=== PATIENT | female | born 1945 | race Caucasian/White ===

== ENCOUNTER 2021-11-02 13:04 | Outpatient (CLI) | payer MEDICARE, BC, SELFPAY ==
--- NOTE | 2021-11-02 13:45 | CRLHL7_ITS ---
For Patients: As a result of the Century Cures Act, medical imaging exams and procedure reports are released immediately into your electronic medical record. You may view this report before your referring provider. If you have questions, please contact your health care provider. INDICATION: Right leg pain. Radiculopathy. TECHNIQUE: Multiplanar multisequence noncontrast MR images acquired through the lumbar spine. COMPARISON: Lumbar spine radiograph 10/26/2021. FINDINGS: Exaggerated lumbar lordosis. Uqku-gq-wajmunat rightward lumbar curvature. Vertebral heights maintained. No acute fracture. No concerning bone marrow signal abnormalities. Normal conus terminates at T12-L1. T12-L1: Moderate disc degeneration. No spinal canal or neural foraminal narrowing. L1-2: Moderate disc degeneration. No spinal canal or neural foraminal narrowing. L2-3: Moderate disc degeneration and left eccentric disc height loss. Posterior disc bulging and endplate spondylitic ridging. Mild bilateral facet arthropathy. Minimal spinal canal narrowing. Mild left lateral recess narrowing. Minimal left without right neural foraminal narrowing. L3-4: Moderate disc degeneration. Mild disc height loss. Shallow left eccentric disc bulge. Ralh-dq-kjrcewdb facet arthropathy. Mild spinal canal narrowing. Xrmp-lc-ggvbogod left and mild right neural foraminal narrowing. L4-5: Mild grade 1 anterolisthesis measuring 4 mm. Moderate disc degeneration. Annular fissure. Right facet joint ankylosis. Vrdu-wg-yfgzafvp left facet arthropathy. No spinal canal narrowing. Mild bilateral neural foraminal narrowing. L5-S1: Mild grade 1 anterolisthesis measuring 3 mm. Advanced disc degeneration. Disc height loss. Right eccentric disc bulging and endplate spondylitic ridging. Moderate right and mild left facet arthropathy. No spinal canal narrowing. Moderate right and mild left neural foraminal narrowing. Sacroiliac joint degenerative changes. IMPRESSION: 1. Multilevel lumbar spondylosis without spinal canal stenosis. 2. At L5-S1, moderate right neural foraminal narrowing with exiting right L5 nerve root encroachment/impingement. Dictated by Raymundo Medel MD @ 11/03/2021 10:58:40 AM (Electronically Signed)
== END 2021-11-02 13:05 | disposition home or self-care (01) ==
LOC: MRI 13:07
PROVIDERS: PCP Family Medicine; Visit Provider Family Medicine
DX: M51.16 Intervertebral disc disorders with radiculopathy, lumbar region (principal); M47.816 Spondylosis without myelopathy or radiculopathy, lumbar region; M51.36 Other intervertebral disc degeneration, lumbar region
CPT/HCPCS: 72148

== ENCOUNTER 2021-12-05 07:58 | Outpatient (CLI) | payer MEDICARE, BC, SELFPAY | END 2021-12-05 07:59 | disposition home or self-care (01) | LOC: INJ CL 07:59 | PROVIDERS: PCP Family Medicine; Visit Provider Family Medicine | DX: M54.16 Radiculopathy, lumbar region (principal); M51.36 Other intervertebral disc degeneration, lumbar region | CPT/HCPCS: 64483; Q9966 ==

== ENCOUNTER 2021-12-07 08:40 | Inpatient (IN) | payer MEDICARE, BC, SELFPAY ==
[2021-12-07] VITALS (14 sets, daily range): BP systolic 94–133; BP diastolic 39–80; PULSE 60–78; RESP 16–22; TEMP 35.8–37.4; O2SAT 86–98; BMI 35.0; BMI 35.2
--- NOTE | 2021-12-07 09:04 | ED_ITS ---
HPI - General Adult General Time Seen by Provider: 09:04 Date Seen: 12/07/21 Chief complaint: Shortness of Breath/Dyspnea Stated complaint: Shortness of breath Time Seen by Provider: 12/07/21 09:03 Source: patient, EMS and RN notes reviewed Mode of arrival: ambulatory Limitations: no limitations History of Present Illness HPI narrative: Patient is a 76-year-old female brought in by EMS from home for hypoxia/shortness of breath. She has a pulse oximeter at home and has been monitoring it. She does have obstructive sleep apnea but has not been using her CPAP due to the nose piece being old and not working. She has not tried to correct this yet. She woke up this morning was feeling short of breath and her pulse oximetry was 85%. EMS got her reportedly to be in the 70s. She states she has had a little cough but that it is maybe not worse or new. She has noted a weight gain of 5 lb from 180-185 over unknown time frame. She attributes this to eating too much and not being active. She has maybe had a little substernal chest discomfort. She has had no fevers. She takes 2 baby aspirin a day but is otherwise not on any blood thinners. She did recently have a back injection for steroids, no acute complaints with that. She has never been on home oxygen, is a nonsmoker. Denies any edema. EMS applied 2 L nasal cannula and her O2 sats came up into the upper 90s. When I come in to see her she has 2 L nasal cannula on and is in the upper 90s. I did turn her oxygen off at roughly 905 in we are going to see how she does off oxygen. I have discussed with her that this certainly can be hypoxia from sleep apnea. We will look at other etiologies and rule out any acute coronary/pulmonary issues potentially causing this. Related Data Home Medications Medication Instructions Recorded Confirmed carboxymethylcellulose sodium 1 % 1 drp ophthalmic (eye) 10/25/21 11/09/21 eye liquid gel drops cholecalciferol (vitamin D3) 25 25 mcg PO QDAY 10/25/21 11/09/21 mcg (1,000 unit) tablet escitalopram oxalate 5 mg tablet 5 mg PO DAILY 10/25/21 11/09/21 metoprolol succinate 50 mg mg PO DAILY 10/25/21 11/09/21 tablet,extended release 24 hr omega-3 fatty acids 500 mg capsule 500 mg PO QDAY 10/25/21 11/09/21 potassium chloride 8 mEq 10 meq PO 10/25/21 11/09/21 capsule,extended release simvastatin 40 mg tablet 40 mg PO .Bedtime 10/25/21 11/09/21 sodium chloride 5 % eye drops 5 drp ophthalmic (eye) 10/25/21 11/09/21 aspirin 81 mg chewable tablet 1 tab PO BID 10/26/21 11/09/21 escitalopram oxalate 10 mg tablet 10 mg PO QDAY 10/26/21 11/09/21 famotidine 20 mg tablet 20 mg PO BID 10/26/21 11/09/21 furosemide 20 mg tablet 20 mg PO DAILY 10/26/21 11/09/21 Allergies Allergy/AdvReac Type Severity Reaction Status Date / Time amoxicillin Allergy Unknown Verified 11/09/21 14:55 sulfa drugs AdvReac Severe SOB Uncoded 11/09/21 14:55 Review of Systems Status of ROS: Reports: 10 or more systems reviewed and unremarkable except as noted in History and below [facility] Medical History Hernia Surgical History History of carpal tunnel release of both wrists History of cholecystectomy (~2018) History of total right knee replacement (~2014) Family History Mother Osteoarthritis Stomach cancer Brother Diabetes Father Diabetes Social History Smoking Status: Never smoker Do you use any of these nicotine containing products: None Second hand tobacco smoke exposure: No How often do you have a drink containing alcohol: monthly or less AUDIT-C Alcohol total score: 1 Non-prescribed substance use: denies use service: No Exam Const: Vital Signs, click to edit/add: Vital Signs - 24 hr 12/07/21 08:59 12/07/21 09:21 12/07/21 09:22 Temperature 98.6 F Pulse Rate [Left P ulse Oximeter] 60 Respiratory Rate 16 Blood Pressure [Le ft Upper Arm] 131/65 Pulse Oximetry 98 86 L Oxygen Delivery Me thod Nasal Cannula Room Air Room Air Oxygen Flow Rate 2 Course Course Hospital Course: She will be monitored on pulse oximetry, cardiac monitoring. We will put her back on oxygen if she becomes hypoxic. Will look at cardiopulmonary etiology including but not limited to acute ischemic issues, arrhythmias, infectious pulmonary etiology including COVID, thromboembolic possibilities. Her workup will consist of portable chest x-ray to begin with, advanced imaging if needed, appropriate blood work and as stated continuous pulse oximetry and cardiac monitoring. Reevaluation(s) Reevaluation #1: Patient's chest x-ray is showing some possible fluid overload, troponin is just minimally elevated. Awaiting other labs. Patient has not taken her morning Lasix. Nursing staff noted that her oxygenation went down to 84% in they did have to put her on 1 L nasal cannula oxygen. Her D-dimer is only 0.69 in the following age rule do not feel that there is likely a pulmonary embolus causing this. We are waiting other labs. I am going to order 40 mg IV Lasix for her now. Working hypothesis is that this is some congestive heart failure/fluid overload. Time: 10:35 Reevaluation #2: Proximally to our point of care troponin is stable at 0.09. Note the initial troponin was a lab value. I have subsequently spoken with the hospitalist who accepts patient. Time: 11:53 Vital Signs Vital signs: Initial Vital Signs Temperature 98.6 F 12/07/21 08:59 Temperature Source Temporal Artery Scan 12/07/21 08:59 Pulse Rate 60 12/07/21 08:59 Pulse Rhythm 12/07/21 08:59 Pulse Strength 3+ Normal 12/07/21 08:59 Respiratory Rate 16 12/07/21 08:59 Blood Pressure 131/65 12/07/21 08:59 Blood Pressure Mean 87 12/07/21 08:59 Blood Pressure Position Sitting 12/07/21 08:59 Pulse Oximetry 98 12/07/21 08:59 Oxygen Delivery Method 12/07/21 08:59 Oxygen Flow Rate 2 12/07/21 08:59 Vital Signs Temperature 98.6 F 12/07/21 08:59 Pulse Rate 60 12/07/21 08:59 Respiratory Rate 16 12/07/21 08:59 Blood Pressure 131/65 12/07/21 08:59 Pulse Oximetry 98 12/07/21 08:59 Oxygen Delivery Method 12/07/21 08:59 Oxygen Flow Rate 2 12/07/21 08:59 Temperature 98.6 F 12/07/21 08:59 Pulse Rate 60 12/07/21 08:59 Respiratory Rate 16 12/07/21 08:59 Blood Pressure 131/65 12/07/21 08:59 Pulse Oximetry 86 L 12/07/21 09:22 Oxygen Delivery Method 12/07/21 09:22 Oxygen Flow Rate 2 12/07/21 08:59 Medical Decision Making Lab Data Lab results reviewed: Yes I reviewed the patient's lab results Labs: Lab Results 12/07/21 12/07/21 12/07/21 Range/Units 09:21 09:21 09:21 WBC 9.88 (4.50-11.00) K/uL RBC 3.91 L (4.00-5.20) m/uL Hgb 12.1 (12.0-16.0) gm/dL Hct 36.3 (33.0-51.0) % MCV 93 (80-100) fL MCH 31 (26-34) pg MCHC 33 (32-36) gm/dL RDW Coeff of Dusty 12.1 (11.5-15.5) % Plt Count 225 (140-440) K/uL Neut % (Auto) 84.7 H (42.0-72.0) % Lymph % (Auto) 6.2 L (20-44) % Collier % (Auto) 7.7 (0.0-11.0) % Eos % (Auto) 0.9 (0.0-7.0) % Baso % (Auto) 0.3 (0.0-3.0) % Neut # (Auto) 8.40 H (1.7-7.0) K/uL Lymph # (Auto) 0.60 L (0.90-2.90) K/uL Collier # (Auto) 0.80 (0.00-0.90) K/UL Eos # (Auto) 0.09 (0.00-0.50) K/uL Baso # (Auto) 0.03 (0.00-0.30) K/uL Abs Immat Gran (auto) 0.02 (0.00-0.30) K/uL D-Dimer Quant (PE/DVT) 0.69 H (0.00-0.50) ug/ml Sodium 136 (135-149) mmol/L Potassium 4.1 (3.6-5.1) mmol/L Chloride 102 (96-114) mmol/L Carbon Dioxide 30 (20-32) mmol/L BUN 39 H (7-30) mg/dL Creatinine 0.8 (0.5-1.5) mg/dL Estimated Creat Clear 36.12 Estimated GFR 76 ml/min Glucose 114 (60-115) mg/dL Calcium 9.0 (8.4-10.6) mg/dL Total Bilirubin 1.3 (0.1-1.5) mg/dL AST 39 H (12-35) U/L ALT 39 H (4-35) U/L Alkaline Phosphatase 69 (40-150) U/L Troponin I 0.07 H* (0.01-0.04) ng/mL C-Reactive Protein 1.7 H (0.5-1.0) mg/dL NT-Pro-B Natriuret Pep 2270 H (0-450) PG/mL Total Protein 7.2 (6.0-8.3) g/dL Albumin 4.0 (3.3-5.0) g/dL SARS-CoV-2 (PCR) (Negative) POC Troponin I (0.01-0.04) ng/ml 12/07/21 12/07/21 Range/Units 09:35 11:30 WBC (4.50-11.00) K/uL RBC (4.00-5.20) m/uL Hgb (12.0-16.0) gm/dL Hct (33.0-51.0) % MCV (80-100) fL MCH (26-34) pg MCHC (32-36) gm/dL RDW Coeff of Dusty (11.5-15.5) % Plt Count (140-440) K/uL Neut % (Auto) (42.0-72.0) % Lymph % (Auto) (20-44) % Collier % (Auto) (0.0-11.0) % Eos % (Auto) (0.0-7.0) % Baso % (Auto) (0.0-3.0) % Neut # (Auto) (1.7-7.0) K/uL Lymph # (Auto) (0.90-2.90) K/uL Collier # (Auto) (0.00-0.90) K/UL Eos # (Auto) (0.00-0.50) K/uL Baso # (Auto) (0.00-0.30) K/uL Abs Immat Gran (auto) (0.00-0.30) K/uL D-Dimer Quant (PE/DVT) (0.00-0.50) ug/ml Sodium (135-149) mmol/L Potassium (3.6-5.1) mmol/L Chloride (96-114) mmol/L Carbon Dioxide (20-32) mmol/L BUN (7-30) mg/dL Creatinine (0.5-1.5) mg/dL Estimated Creat Clear Estimated GFR ml/min Glucose (60-115) mg/dL Calcium (8.4-10.6) mg/dL Total Bilirubin (0.1-1.5) mg/dL AST (12-35) U/L ALT (4-35) U/L Alkaline Phosphatase (40-150) U/L Troponin I (0.01-0.04) ng/mL C-Reactive Protein (0.5-1.0) mg/dL NT-Pro-B Natriuret Pep (0-450) PG/mL Total Protein (6.0-8.3) g/dL Albumin (3.3-5.0) g/dL SARS-CoV-2 (PCR) Negative SARS-CoV-2 (Negative) POC Troponin I 0.09 H (0.01-0.04) ng/ml Imaging Data Chest x-ray: Attestation: I have reviewed the pertinent imaging results. Radiologist's impression: Patient: MIKE CHEEMA Facility:?[facility] Patient ID:?[id number] Site Patient ID:?[id number]. Site :?[id number] Study:?XRay Chest PORTABLE 1 VIEW-12/07/2021 9:32:48 AM Ordering Physician:Joseph Estrada Final Report: INDICATION: Hypoxia. TECHNIQUE: Chest 1 views. COMPARISON: None. FINDINGS: Lungs: Mild diffuse interstitial prominence. No focal consolidations. Pleura: No pleural effusion or pneumothorax. Heart and Mediastinum: The cardiomediastinal silhouette is normal. The vessels are unremarkable. Bones: Unremarkable. IMPRESSION: Interstitial prominence could be venous congestion or vascular crowding. Dictated by Darrel Maldonado MD @ 12/07/2021 9:36:16 AM ECG Data Attestation: I personally reviewed and interpreted this ECG as follows: (Sinus rhythm, 95 beats per minute, supraventricular complexes , QT corrected 505 milliseconds) Prior ECG tracings: not available for review Critical Care Time Critical Care Time Critical Care Time: No Discharge Plan Discharge Clinical Impression: Congestive heart failure, Hypoxia Patient Disposition: Admitted As Inpatient Condition: Stable Prescriptions: No Action escitalopram oxalate 5 mg tablet 5 mg PO DAILY carboxymethylcellulose sodium 1 % drops, liquid gel 1 drp ophthalmic (eye) simvastatin 40 mg tablet 40 mg PO .Bedtime metoprolol succinate 50 mg tablet extended release 24 hr PO DAILY potassium chloride 8 mEq capsule, extended release 10 meq PO sodium chloride 5 % drops 5 drp ophthalmic (eye) omega-3 fatty acids 500 mg capsule 500 mg PO QDAY cholecalciferol (vitamin D3) 25 mcg (1,000 unit) tablet 25 mcg PO QDAY aspirin 81 mg tablet,chewable 1 tab PO BID famotidine 20 mg tablet 20 mg PO BID furosemide 20 mg tablet 20 mg PO DAILY escitalopram oxalate 10 mg tablet 10 mg PO QDAY Follow Up/Referrals: Eloise Malave MD [Primary Care Provider] -
--- NOTE | 2021-12-07 09:12 | CRLHL7_ITS ---
For Patients: As a result of the Cures Act, medical imaging exams and procedure reports are released immediately into your electronic medical record. You may view this report before your referring provider. If you have questions, please contact your health care provider. INDICATION: Hypoxia. TECHNIQUE: Chest 1 views. COMPARISON: None. FINDINGS: Lungs: Mild diffuse interstitial prominence. No focal consolidations. Pleura: No pleural effusion or pneumothorax. Heart and Mediastinum: The cardiomediastinal silhouette is normal. The vessels are unremarkable. Bones: Unremarkable. IMPRESSION: Interstitial prominence could be venous congestion or vascular crowding. Dictated by Darrel Maldonado MD @ 12/07/2021 9:36:16 AM (Electronically Signed)
[2021-12-07 09:50] LABS: Basophils Absolute Auto 0.03 K/uL (0.00-0.30); Basophils Percent Auto 0.3 % (0.0-3.0); Eosinophils Absolute Auto 0.09 K/uL (0.00-0.50); Eosinophils Percent Auto 0.9 % (0.0-7.0); Hematocrit 36.3 % (33.0-51.0); Hemoglobin* 12.1 gm/dL (12.0-16.0); Immature Granulocytes Abs Auto 0.02 K/uL (0.00-0.30); Lymphocytes Percent Auto 6.2 % (20-44); Mean Corpuscular HGB Conc 33 gm/dL (32-36); Mean Corpuscular Hemoglobin 31 pg (26-34); Mean Corpuscular Volume 93 fL (80-100); Monocytes Percent Auto 7.7 % (0.0-11.0); Neutrophils Percent Auto 84.7 % (42.0-72.0); Platelet Count* 225 K/uL (140-440); RDW Coefficient of Variation % 12.1 % (11.5-15.5); Red Blood Count 3.91 m/uL (4.00-5.20); White Blood Count* 9.88 K/uL (4.50-11.00)
[2021-12-07 09:54] LABS: Slide Review Reflex No
[2021-12-07 10:10] LABS: Chloride* 102 mmol/L (96-114); Sodium* 136 mmol/L (135-149)
[2021-12-07 10:11] LABS: Potassium* 4.1 mmol/L (3.6-5.1)
[2021-12-07 10:13] LABS: Bilirubin Total* 1.3 mg/dL (0.1-1.5); Creatinine* 0.8 mg/dL (0.5-1.5); Est. Creatinine Clearance* 36.12; Estimated Glomerular Filt Rate 76 ml/min
[2021-12-07 10:14] LABS: Alanine Aminotransferase* 39 U/L (4-35); Alkaline Phosphatase* 69 U/L (40-150); Aspartate Amino Transferase* 39 U/L (12-35); Blood Urea Nitrogen* 39 mg/dL (7-30); Carbon Dioxide* 30 mmol/L (20-32); Glucose* 114 mg/dL (60-115); Total Protein* 7.2 g/dL (6.0-8.3)
[2021-12-07 10:15] LABS: D Dimer Quantitative* 0.69 ug/ml (0.00-0.50)
[2021-12-07 10:16] LABS: C Reactive Protein* 1.7 mg/dL (0.5-1.0)
[2021-12-07 10:23] LABS: NT Pro B Type NatriureticPept* 2270 PG/mL (0-450)
[2021-12-07 10:29] LABS: Troponin I* 0.07 ng/mL (0.01-0.04)
[2021-12-07 10:29] LABS: SARS PCR* Negative SARS-CoV-2 (Negative)
--- NOTE | 2021-12-07 10:29 | ED.NURSE ---
dr jennings aware of cr trop 0.07.
[2021-12-07] MEDS: FUROSEMIDE 10 MG/ML inj 40 MG IVP (10:44)
[2021-12-07 11:57] LABS: Troponin, Point-of-Care* 0.09 ng/ml (0.01-0.04)
[2021-12-07] MEDS: ACETAMINOPHEN 325 MG TABLET 650 MG PO ×2 (12:16→20:45)
--- NOTE | 2021-12-07 12:16 | W.PC.EDHO ---
Primary Language: Preferred Language: Orientation Status: [x] Alert & Oriented [] Slight Confusion [] Known Dx Dementia Transfers By: [x] Assist of 1 WITH WALKER [] Assist of 2 [] Lift Active Medications Discontinued Medications Generic Name Dose Route Start Last Admin Trade Name Yeyoq PRN Reason Stop Dose Admin Furosemide 40 mg 12/07/21 10:35 12/07/21 10:44 Furosemide 10 Mg/Ml Inj IVP 12/07/21 10:36 40 mg ONCE ONE Administration Description of Symptoms ED Triage Present Problem BIBA after calling for SOB. Pt states her CPAP Description machine hasnt been working for sometime. Woke up feeling SOB with o2 in the 70s. EMS gave 2L, brought up to 98%. On 2L here. Denies pain. Was recently seen for steroid shot. ED Triage Date of Onset of 12/07/21 Symptoms IV Insertion/Site Date of IV Line Insertion [ 12/07/21 Right Antecubital] Oxygen Administration Pulse Oximetry 86 Pulse Oximetry 98 Oxygen Delivery Method Room Air Oxygen Delivery Method Room Air Oxygen Delivery Method Nasal Cannula Oxygen Flow Rate 2 Cardiac Monitoring EKG Method 12 Lead EKG Method 12 Lead Cardiac Ectopy PACs
--- NOTE | 2021-12-07 12:55 | P.IMHP_ITS ---
Hospitalist- H&P: HPI History of Present Illness Date Seen: 12/07/21 Chief complaint: Shortness of breath Narrative: Racquel Jones is a 76 year old female who presented to the ED for acute on chronic dyspnea. She's noted shortness of breath for the past few weeks, worse when she lays fl at. She is unsure if she's having PND. Occasionally has chest pressure with the shortness of breath. No significant LE edema. She is on Lasix 20 mg daily. She has been on this dose for a few months, but in the past was on 40 mg daily, which she feels was more effective. Racquel thinks she misses this medication perhaps 1-2 times per week. Overnight, she noted worsening symptoms, then called her PCP's clinic this morning. They recommended she come to the hospital by ambulance. ER Course and Findings: - EMS noted hypoxia upon arrival to pick patient up (70-80%), improved with supplemental oxygen - CXR in ED exhibited interstitial prominence that could be venous congestion/vascular crowding - Received 1 dose of Lasix with + results - D-dimer within age-appropriate limits - EKG with long QT, no other acute findings Past Medical History: CHF: Last TTE in records done 03/08: Normal LV chamber size and function with EF of 66%, trace to mild AR. Essential HTN with age-appropriate control on home medications. Mild depression/anxiety, controlled on 15mg of Lexapro. RAFAEL, not using CPAP for weeks to months secondary to poorly fitting mask. Has had multiple hernia repairs (6-7), last one was in 2019 at [facility]. Her postoperative course was complicated by paroxysmal atrial fibrillation. She's followed with Cardiology since, with no recurrence of this rhythm. , 3 adult children. Lives with her son Luis Miguel bernal, brother Aman, and sister Nel would together be medical decision makers if needed. Requests DNR/DNI status. Nonsmoker. Rare ETOH use. Thrice COVID vaccinated. Retired, multiple previous jobs (most recently worked for [employer]). Review of Systems Status of ROS: Reports: 10 or more systems reviewed and unremarkable except as noted in History and below Narrative: No recent falls, but she's been feeling unsteady while walking over the past few weeks secondary to her back pain (known degenerative disease). On Saturday of this week, she took 1 Valium prior to her PAT with Dr. You for her back pain. Intermittent headaches, no obvious alleviating or aggravating factors. No GI concerns, no skin changes or rashes. [facility] Medical History (Updated 12/07/21 @ 13:46 by Crystal Raymundo MD) Essential hypertension Hernia Surgical History History of carpal tunnel release of both wrists History of cholecystectomy (~2018) History of total right knee replacement (~2014) Family History Mother Osteoarthritis Stomach cancer Brother Diabetes Father Diabetes Social History Highest level of school completed/degree received: high school graduate Smoking Status: Never smoker Do you use any of these nicotine containing products: None Second hand tobacco smoke exposure: No How often do you have a drink containing alcohol: monthly or less AUDIT-C Alcohol total score: 1 Non-prescribed substance use: denies use Caffeine: Yes (cup of coffee or pop a day) service: No Meds Home Medications and Allergies Home Medications Medication Instructions Recorded Confirmed Type carboxymethylcellulose sodium 1 % 1 drp ophthalmic (eye) DAILY 10/25/21 12/07/21 History eye liquid gel drops cholecalciferol (vitamin D3) 25 25 mcg PO QDAY 10/25/21 12/07/21 History mcg (1,000 unit) tablet escitalopram oxalate 5 mg tablet 5 mg PO DAILY 10/25/21 12/07/21 History metoprolol succinate 50 mg 50 mg PO DAILY 10/25/21 12/07/21 History tablet,extended release 24 hr omega-3 fatty acids 500 mg capsule 500 mg PO QDAY 10/25/21 12/07/21 History potassium chloride 8 mEq 10 meq PO DAILY 10/25/21 12/07/21 History capsule,extended release simvastatin 40 mg tablet 40 mg PO .Bedtime 10/25/21 12/07/21 History sodium chloride 5 % eye drops 5 drp ophthalmic (eye) DAILY 10/25/21 12/07/21 History aspirin 81 mg chewable tablet 1 tab PO BID 10/26/21 12/07/21 History escitalopram oxalate 10 mg tablet 10 mg PO QDAY 10/26/21 12/07/21 History famotidine 20 mg tablet 20 mg PO BID 10/26/21 12/07/21 History furosemide 20 mg tablet 20 mg PO DAILY 10/26/21 12/07/21 History Allergies Allergy/AdvReac Type Severity Reaction Status Date / Time Sulfa (Sulfonamide Allergy Severe dyspnea Verified 12/07/21 13:36 Antibiotics) amoxicillin Allergy Unknown Verified 11/09/21 14:55 Exam Narrative: Exam Narrative: GEN: Alert and answering questions appropriately, 3-5 word dyspnea HEENT: Normal external ears, EOMIs bilaterally, no scleral icterus CV: RRR, No concerning murmurs, rubs, or gallops R: Air movement adequate, fine rales bilateral bases noted Ab: soft, nondistended, no ttp Ext: wwp, no concerning edema of lower extremities Skin: No concerning skin lesions or rashes on exposed skin Neuro: Nonfocal Psych: Appropriate Const: Vital Signs, click to edit/add: Vital Signs - 24 hr 12/07/21 08:59 12/07/21 09:21 12/07/21 09:22 Temperature 98.6 F Pulse Rate [Left P ulse Oximeter] 60 Respiratory Rate 16 Blood Pressure [Le ft Upper Arm] 131/65 Pulse Oximetry 98 86 L Oxygen Delivery Me thod Nasal Cannula Room Air Room Air Oxygen Flow Rate 2 12/07/21 08:45 12/07/21 09:00 12/07/21 10:00 Temperature 98.6 F 98.6 F 98.6 F Pulse Rate [Left P ulse Oximeter] 60 73 70 Respiratory Rate 16 16 16 Blood Pressure [Le ft Upper Arm] 131/65 124/63 130/65 Pulse Oximetry 86 L 96 97 Oxygen Delivery Me thod Room Air Room Air Room Air Oxygen Flow Rate 2 2 2 12/07/21 12:00 Temperature 98.6 F Pulse Rate [Left P ulse Oximeter] 60 Respiratory Rate 16 Blood Pressure [Le ft Upper Arm] 120/68 Pulse Oximetry 96 Oxygen Delivery Me thod Room Air Oxygen Flow Rate 2 Hospitalist - H&P: Result Labs Labs: Short CBC 12/07/21 Range/Units 09:21 WBC 9.88 (4.50-11.00) K/uL Hgb 12.1 (12.0-16.0) gm/dL Hct 36.3 (33.0-51.0) % Plt Count 225 (140-440) K/uL BMP 12/07/21 09:21 Sodium 136 Potassium 4.1 Chloride 102 Carbon Dioxide 30 BUN 39 H Creatinine 0.8 Glucose 114 Calcium 9.0 Cardiac Enzymes 12/07/21 Range/Units 09:21 Troponin I 0.07 H* (0.01-0.04) ng/mL Liver Function 12/07/21 Range/Units 09:21 Total Bilirubin 1.3 (0.1-1.5) mg/dL AST 39 H (12-35) U/L ALT 39 H (4-35) U/L Alkaline Phosphatase 69 (40-150) U/L Albumin 4.0 (3.3-5.0) g/dL Assessment and Plan Assessment and plan (1) Essential hypertension: Status: Acute (2) Acute respiratory failure with hypoxia: Status: Acute (3) Long QT interval: Status: Acute (4) Congestive heart failure: Status: Acute (5) Elevated troponin: Status: Acute Plan 76 yo female, admitted for acute hypoxic respiratory failure. 1. Acute hypoxic respiratory failure: No evidence of pneumonia or other infectious process on initial chest x-ray. D-dimer within age-appropriate limits. Clinically appears to have a CHF exacerbation. Diuresing well and improving with supplemental oxygen. Will obtain TTE today to assess EF. Admit on telemetry to monitor cardiac rhythm. Patient has a remote history of atrial fibrillation and does not believe she has been in atrial fibrillation recently. Continue metoprolol for rate control and hypertension. Of note, patient was on Eliquis for a short time in 2019, but currently anticoagulated on aspirin BID. 2. Elevated troponin; presumably secondary to cardiac strain from CHF exacerbation, continue to follow troponins. 3. Comorbidities as noted above: Continue CPAP (RT referral ordered) and home medications. 4. Lovenox for prophylaxis, in addition to aspirin. Continue famotidine and p.o. intake. 5. Patient requests DNR/DNI status.
--- NOTE | 2021-12-07 14:10 | PC.NURSE ---
normal sinus with a bbb
--- NOTE | 2021-12-07 14:12 | PC.NURSE ---
End of Shift Note: Patient was an admit that arrived from the ER today. Patient was seen today for increase shortness of breath. Patient is alert and oriented and in no distress. Shortly after arriving to the floor we were able to wean her to room air. Admission completed and all questions have been answered will continued to monitor.
--- NOTE | 2021-12-07 14:21 | RESP.RT ---
Patient states that she is not wearing her CPAP machine. Discussed the wear that not wearing her CPAP machine results in and that just wearing it when she is short of breath does not prevent her from becoming short of breath. She needs to wear it each night for maintenance. Patient was wearing 1L NC and SATing 96%. Patient put on room air and SATing 92%.
[2021-12-07 18:32] LABS: Troponin I* 0.12 ng/mL (0.01-0.04)
[2021-12-07] MEDS: ENOXAPARIN 40 MG/0.4 ML INJ SUBCUT (20:45)
[2021-12-07] MEDS: ASPIRIN 81 MG TAB.CHEW PO (20:45)
[2021-12-07] MEDS: SIMVASTATIN 40 MG TABLET PO (20:45)
[2021-12-07] MEDS: FAMOTIDINE 20 MG TABLET PO (20:45)
--- NOTE | 2021-12-07 23:51 | PC.NURSE ---
End of Shift: Patient pleasant and cooperative. Afebrile. Denies pain. Up to bathroom and chair with 1 assist, walker and gait belt. O2 sats greater than 90% on room air while awake. Sats decrease to mid 80s while sleeping, 1L NC applied and sats remained above 90%.
[2021-12-08] VITALS (10 sets, daily range): BP systolic 88–133; BP diastolic 52–67; PULSE 55–72; RESP 18–22; TEMP 36.3–37; O2SAT 61–94
--- NOTE | 2021-12-08 05:38 | PC.NURSE ---
Shift note : Pt alert, able to make needs known, SBA w/ walker to BR, denies any pain. Pt continues to get extremely SOB w/ activity, RA sats w/ activity 88%, continues w/ 1L while sleeping d/t sats dipping at rest w/ RAFAEL, lungs w/ crackles R base. Tele reads NSR.
[2021-12-08 07:17] LABS: Troponin I* 0.06 ng/mL (0.01-0.04)
[2021-12-08] MEDS: CARBOXYMETHYLCELLULOSE (REFRESH PLUS) TEARS 1 DROP EYE-BOTH (08:05)
[2021-12-08] MEDS: ESCITALOPRAM 10 MG TABLET 15 MG PO (08:06)
[2021-12-08] MEDS: ASPIRIN 81 MG TAB.CHEW PO ×2 (08:06→20:38)
[2021-12-08] MEDS: METOPROLOL SUCCINATE (XL) 50 MG TAB PO (08:06)
[2021-12-08] MEDS: FAMOTIDINE 20 MG TABLET PO ×2 (08:06→20:39)
[2021-12-08] MEDS: POTASSIUM CHLORIDE 10 MEQ CAPSULE ER PO (08:06)
[2021-12-08] MEDS: FUROSEMIDE 20 MG TABLET PO (08:07)
--- NOTE | 2021-12-08 08:14 | CRLHL7_ITS ---
For Patients: As a result of the Century Cures Act, medical imaging exams and procedure reports are released immediately into your electronic medical record. You may view this report before your referring provider. If you have questions, please contact your health care provider. INDICATION: Abnormal echo COMPARISON: None TECHNIQUE: : CT examination of the chest was performed with the uneventful intravenous administration of 95 cc of Isovue 370 while thin axial sections were obtained from above the apices of the lungs to the lung bases. Please note that all CT scans at this facility use dose modulation, iterative reconstruction, and/or weight-based dosing when appropriate to reduce radiation dose to as low as reasonably achievable. FINDINGS: : HEART and MEDIASTINUM: The heart size is mildly enlarged. This is multi chamber enlargement but notably also involves the right heart. The central pulmonary arteries are enlarged which can indicate pulmonary hypertension. The RV/LV ratio is 1.2. Greater than 0.9 is indicative right heart strain. However, this appearance could also be due to pre-existing pulmonary hypertension unrelated to acute pulmonary embolus. PULMONARY ARTERIAL CIRCULATION: There is a tiny clot burden pulmonary embolus. This is near the left hilus and best seen on series 4, axial image 87 corresponding to coronal images series 6, image 151. LUNGS: The lungs show no focal consolidation or mass. The airways appear normal. Patchy basilar atelectasis PLEURAL SPACES: There is no pleural effusion, pneumothorax or pleural based mass. VISUALIZED UPPER ABDOMEN: The limited visualized upper abdominal structures appear normal. OSSEOUS STRUCTURES: Degenerative changes and scoliosis. TUBES and LINES: None. I discussed this case with Dr. Raymundo at 9:20 a.m. on December 08, 2021 IMPRESSION: 1. There is a very small pulmonary embolus. 2. Multichamber cardiac enlargement including right heart enlargement. The RV/LV ratio is 1.2 which generally indicates right heart strain. However, the dilated right ventricle could be unrelated to the small pulmonary embolus. There are enlarged central pulmonary arteries which can indicate pulmonary hypertension. 3. Trace bibasilar atelectasis. No pleural effusion or pneumothorax Please note that all CT scans at this facility use dose modulation, iterative reconstruction, and/or weight-based dosing when appropriate to reduce radiation dose to as low as reasonably achievable. Dictated by Jw Garcia MD @ 12/08/2021 9:22:07 AM (Electronically Signed)
--- NOTE | 2021-12-08 09:15 | PM.IMPN1 ---
Progress Note: A&P Assessment and plan (1) Acute respiratory failure with hypoxia: Problem details: TTE results from 12/07: - normal LV size with moderately increased wall thickness and hyperdynamic systolic function with an EF of 79% - sclerotic mitral valve with trace MR - normal cavity size of right ventricle with reduction in global systolic function and akinesis of mid free wall concerning for PE Status: Acute Assessment and Plan: Hypoxia is likely combination of PE and presumed pulmonary HTN. Continue supplemental oxygen and will need close outpatient Cardiology f/u (Sees Dr. Akers of Cardiology at [facility] [place]). TTE findings per above. Continue home dosing of Lasix. Patient continues to have mild intermittent hypoxia - will ask RT to consult to discuss home oxygen. (2) Essential hypertension: Status: Acute Assessment and Plan: BP at goal, continue home medications. (3) Pulmonary embolism: Status: Acute Assessment and Plan: Patient amenable to initiating Xarelto with close PCP and cardiology follow-up. (4) Elevated troponin: Problem details: Peak at 0.12 Status: Acute (5) Atrial fibrillation: Problem details: 2019, postoperatively. No recurrence since, on BID ASA Status: Acute Assessment and Plan: Patient has remained in sinus rhythm throughout stay. Continue metoprolol. We will stop her aspirin for prophylaxis now that she is restarting Xarelto. Plan Xarelto for prophylaxis per above. Anticipate discharge home tomorrow, possibly with home oxygen (pending RT assessment). Time Spent With Patient Total time spent: 45 in coordination of care, counseling, and discharge planning. Subjective Date Seen: 12/08/21 Interval history: No acute events overnight. Patient continues to have dyspnea with activity, intermittent hypoxia to 87-88%. [employer] called me this morning after reading echocardiogram. Findings include: - normal LV size with moderately increased wall thickness and hyperdynamic systolic function with an EF of 79% - sclerotic mitral valve with trace MR - normal cavity size of right ventricle with reduction in global systolic function and akinesis of mid free wall concerning for PE CTA exhibited small PE near L hilum. Racquel has no concerns for me today. Patient would prefer to go home without supplemental oxygen, but is amenable to RT referral for assessment. Exam Narrative: Exam Narrative: GEN: Alert, sitting comfortably in bed, continues to have 3-5 word dyspnea HEENT: Normal external ears, EOMIs bilaterally, no scleral icterus CV: RRR, No concerning murmurs, rubs, or gallops R: Decreased bilateral bases with mild rhonchi bilateral bases, air movement adequate Ext: wwp, no concerning edema Skin: No concerning skin lesions or rashes on exposed skin Neuro: Nonfocal Psych: Appropriate Const: Vital Signs, click to edit/add: Vital Signs - 24 hr 12/07/21 09:21 12/07/21 09:22 12/07/21 10:00 Temperature 98.6 F Pulse Rate Pulse Rate [Left P ulse Oximeter] 70 Pulse Rate [Right Radial] Respiratory Rate 16 Blood Pressure [Le ft Upper Arm] 130/65 Blood Pressure [Ri ght Arm] Pulse Oximetry 86 L 97 Oxygen Delivery Me thod Room Air Room Air Room Air Oxygen Flow Rate 2 12/07/21 12:00 12/07/21 12:57 12/07/21 13:31 Temperature 98.6 F 99.3 F Pulse Rate Pulse Rate [Left P ulse Oximeter] 60 Pulse Rate [Right Radial] 62 Respiratory Rate 16 22 Blood Pressure [Le ft Upper Arm] 120/68 Blood Pressure [Ri ght Arm] 133/48 L Pulse Oximetry 96 95 95 Oxygen Delivery Me thod Room Air Nasal Cannula Nasal Cannula Oxygen Flow Rate 2 2 2 12/07/21 13:31 12/07/21 15:00 12/07/21 15:00 Temperature 98.2 F Pulse Rate 66 Pulse Rate [Left P ulse Oximeter] Pulse Rate [Right Radial] 64 Respiratory Rate 18 Blood Pressure [Le ft Upper Arm] Blood Pressure [Ri ght Arm] 94/39 L Pulse Oximetry 94 94 Oxygen Delivery Me thod Room Air Room Air Oxygen Flow Rate 12/07/21 16:15 12/07/21 17:18 12/07/21 15:30 Temperature Pulse Rate 60 Pulse Rate [Left P ulse Oximeter] Pulse Rate [Right Radial] Respiratory Rate 18 Blood Pressure [Le ft Upper Arm] Blood Pressure [Ri ght Arm] 114/80 Pulse Oximetry Oxygen Delivery Me thod Oxygen Flow Rate 12/07/21 19:00 12/07/21 23:30 12/07/21 23:30 Temperature 98.9 F 96.5 F L Pulse Rate Pulse Rate [Left P ulse Oximeter] Pulse Rate [Right Radial] 72 62 Respiratory Rate 22 20 20 Blood Pressure [Le ft Upper Arm] Blood Pressure [Ri ght Arm] 110/52 L 113/58 L Pulse Oximetry 94 97 97 Oxygen Delivery Me thod Room Air Room Air Nasal Can nula Nasal Cannula Oxygen Flow Rate 1 1 12/07/21 23:30 12/07/21 23:30 12/08/21 05:00 Temperature 97.3 F L Pulse Rate 78 Pulse Rate [Left P ulse Oximeter] Pulse Rate [Right Radial] 61 Respiratory Rate 20 22 Blood Pressure [Le ft Upper Arm] Blood Pressure [Ri ght Arm] 132/67 Pulse Oximetry 97 94 Oxygen Delivery Me thod Nasal Cannula Nasal Cannula Oxygen Flow Rate 1 1 Labs Labs: Laboratory Results - last 24 hr 12/07/21 12/07/21 12/07/21 09:21 09:21 09:21 WBC 9.88 RBC 3.91 L Hgb 12.1 Hct 36.3 MCV 93 MCH 31 MCHC 33 RDW Coeff of Dusty 12.1 Plt Count 225 Neut % (Auto) 84.7 H Lymph % (Auto) 6.2 L Patrick % (Auto) 7.7 Eos % (Auto) 0.9 Baso % (Auto) 0.3 Neut # (Auto) 8.40 H Lymph # (Auto) 0.60 L Patrick # (Auto) 0.80 Eos # (Auto) 0.09 Baso # (Auto) 0.03 Abs Immat Gran (auto) 0.02 D-Dimer Quant (PE/DVT) 0.69 H Sodium 136 Potassium 4.1 Chloride 102 Carbon Dioxide 30 BUN 39 H Creatinine 0.8 Estimated Creat Clear 36.12 Estimated GFR 76 Glucose 114 Calcium 9.0 Total Bilirubin 1.3 AST 39 H ALT 39 H Alkaline Phosphatase 69 Troponin I 0.07 H* C-Reactive Protein 1.7 H NT-Pro-B Natriuret Pep 2270 H Total Protein 7.2 Albumin 4.0 SARS-CoV-2 (PCR) POC Troponin I 12/07/21 12/07/21 12/07/21 09:35 11:30 17:48 WBC RBC Hgb Hct MCV MCH MCHC RDW Coeff of Dusty Plt Count Neut % (Auto) Lymph % (Auto) Patrick % (Auto) Eos % (Auto) Baso % (Auto) Neut # (Auto) Lymph # (Auto) Patrick # (Auto) Eos # (Auto) Baso # (Auto) Abs Immat Gran (auto) D-Dimer Quant (PE/DVT) Sodium Potassium Chloride Carbon Dioxide BUN Creatinine Estimated Creat Clear Estimated GFR Glucose Calcium Total Bilirubin AST ALT Alkaline Phosphatase Troponin I 0.12 H* C-Reactive Protein NT-Pro-B Natriuret Pep Total Protein Albumin SARS-CoV-2 (PCR) Negative SARS-CoV-2 POC Troponin I 0.09 H 12/08/21 05:25 WBC RBC Hgb Hct MCV MCH MCHC RDW Coeff of Dusty Plt Count Neut % (Auto) Lymph % (Auto) Patrick % (Auto) Eos % (Auto) Baso % (Auto) Neut # (Auto) Lymph # (Auto) Patrick # (Auto) Eos # (Auto) Baso # (Auto) Abs Immat Gran (auto) D-Dimer Quant (PE/DVT) Sodium Potassium Chloride Carbon Dioxide BUN Creatinine Estimated Creat Clear Estimated GFR Glucose Calcium Total Bilirubin AST ALT Alkaline Phosphatase Troponin I 0.06 H* C-Reactive Protein NT-Pro-B Natriuret Pep Total Protein Albumin SARS-CoV-2 (PCR) POC Troponin I
--- NOTE | 2021-12-08 10:51 | NUTR.NU ---
PJN with MD nutrition consult for CHF. RDN visited with patient whom agreed to diet education related to CHF. Patient reports living with her son whom makes a lot of the meals. Patient tries to inlcude fruits and vegetables, and whole grains in her diet, however she does add salt and oils to foods. Nutrition education provided on a low sodium diet related to congestive heart failure. Verbal and written information provided. Recommend limiting sodium to 2,000 mg per day. Discussed foods recommended and to avoid. Handouts provided from [facility] on heart failure nutrition therapy, sodium content of foods, heart healthy label reading tips, sodium-free flavoring tips and heart healthy cooking and shopping tips. Patient verbalized understanding. RDN's contact information was provided and patient was encouraged to call with questions.
[2021-12-08] MEDS: RIVAROXABAN 10 MG TABLET 15 MG PO ×2 (11:14→20:38)
--- NOTE | 2021-12-08 13:44 | RESP.3PART ---
3 Part Home O2 Testing Summary RT 3 Part Home O2 Testing Summary Start: 12/08/21 13:40 Freq: Status: Active Protocol: Document 12/08/21 13:40 ZULMA (Rec: 12/08/21 13:43 ZULMA [id number]) 3 Part Home O2 Testing Summary The following is a summary of the 3 Part O2 Testing Evaluation Date/Time of Testing Date 12/08/21 Time 13:40 Insurance Policy Number [id number] Step 1 SAT on room air at rest (%) 92 Step 2 SAT on room air while exercising (%) 85 Step 3 SAT on supplemental O2 while exercising 90 (%) Liters of supplemental O2 needed while 3 exercising (L) O2 Delivery O2 delivered via Nasal Cannula Comments Comments Patient SAT on room air at rest is 92% and does not require supplemental O2 at this time. Patient SAT on room air with activity is 85% and requires 3L NC to keep SAT at 90% with activity.
--- NOTE | 2021-12-08 14:08 | PC.NURSE ---
Pt. ambulating with walker and SBA. Experiences SOB with exertion. O2 sats 87-94% RA. Telemetry Sinus Bradycardia/NSR. Denies pain.
--- NOTE | 2021-12-08 14:48 | PC.SOCIAL ---
Met with pt. who will need oxygen at discharge. Per RT physician is not discharging until tomorrow. Met with pt. and answered questions about payment for O2 and mobility at home with the tank she will receive at discharge. Waiting for physician's orders to fax over to [employer] [facility] but pt. has the portable O2 tank in her room for discharge tomorrow.
[2021-12-08] MEDS: ACETAMINOPHEN 325 MG TABLET 650 MG PO (15:45)
--- NOTE | 2021-12-08 17:18 | W.PM.HOT ---
Acute Home Oxygen Therapy Acute Home Oxygen Therapy Provider Note Provider Note: Patient was admitted on 12/07/21 at 12:17 and will be discharging on 12/09/21] Patient is desaturating with SATs of [85%] on room air due to [Pulmonary Hypertension]. Alternative therapies have been attempted and have not been successful in maintaining the patient's saturation level above 88%. Supplemental O2 is required. This patient is mobile within the home and requires portability.
[2021-12-08] MEDS: SIMVASTATIN 40 MG TABLET PO (20:39)
--- NOTE | 2021-12-08 22:23 | PC.NURSE ---
Shift [id number]- Patient denies pain throughout shift. She is SOB with ambulation. BP is decreased after just returning from bathroom, but increased at recheck 20 minutes later- see charting. She states that maybe she sort-of gets lightheaded when getting up, but not dizzy. She does not have SOB at rest. Appetite is intact.
[2021-12-09 02:00] VITALS: PULSE 57
[2021-12-09 03:00] VITALS: BP 138/67; PULSE 59; RESP 18; O2SAT 97
--- NOTE | 2021-12-09 06:13 | PC.NURSE ---
shift [id number] Pt this shift cooperative with cares. Up to restroom with walker and SB assist. SpO2 dipped into the 86-88% on room air NOC. 1L O2 via NC applied and sats at 97%. Tolerating continuos pulse-ox with sticky probe vs clamp probe. Slept comfortably throughout night.
[2021-12-09 07:20] LABS: Basophils Percent Auto 0.9 % (0.0-3.0); Eosinophils Percent Auto 4.9 % (0.0-7.0); Hematocrit 34.1 % (33.0-51.0); Hemoglobin* 11.2 gm/dL (12.0-16.0); Immature Granulocytes Abs Auto 0.02 K/uL (0.00-0.30); Lymphocytes Percent Auto 13.1 % (20-44); Mean Corpuscular HGB Conc 33 gm/dL (32-36); Mean Corpuscular Hemoglobin 31 pg (26-34); Mean Corpuscular Volume 93 fL (80-100); Monocytes Percent Auto 7.9 % (0.0-11.0); Neutrophils Percent Auto 72.7 % (42.0-72.0); Platelet Count* 196 K/uL (140-440); RDW Coefficient of Variation % 11.8 % (11.5-15.5); Red Blood Count 3.65 m/uL (4.00-5.20); White Blood Count* 4.28 K/uL (4.50-11.00)
[2021-12-09 07:26] LABS: Slide Review Reflex No
[2021-12-09 07:32] VITALS: PULSE 59
[2021-12-09 07:39] LABS: Chloride* 101 mmol/L (96-114)
[2021-12-09 07:40] LABS: Potassium* 3.8 mmol/L (3.6-5.1); Sodium* 136 mmol/L (135-149)
[2021-12-09 07:42] LABS: Creatinine* 0.6 mg/dL (0.5-1.5); Est. Creatinine Clearance* 36.12; Estimated Glomerular Filt Rate 93 ml/min
[2021-12-09 07:43] LABS: Blood Urea Nitrogen* 19 mg/dL (7-30); Calcium* 8.4 mg/dL (8.4-10.6); Carbon Dioxide* 31 mmol/L (20-32); Glucose* 98 mg/dL (60-115)
[2021-12-09 07:49] VITALS: BP 140/61; PULSE 64; RESP 16; TEMP 36.6; O2SAT 94; O2SAT 98
[2021-12-09] MEDS: ESCITALOPRAM 10 MG TABLET 15 MG PO (08:29)
[2021-12-09] MEDS: RIVAROXABAN 10 MG TABLET 15 MG PO (08:29)
[2021-12-09] MEDS: POTASSIUM CHLORIDE 10 MEQ CAPSULE ER PO (08:29)
[2021-12-09] MEDS: FUROSEMIDE 20 MG TABLET PO (08:29)
[2021-12-09] MEDS: METOPROLOL SUCCINATE (XL) 50 MG TAB PO (08:29)
[2021-12-09] MEDS: FAMOTIDINE 20 MG TABLET PO (08:30)
--- NOTE | 2021-12-09 10:28 | PM.DS1 ---
DS: Providers Provider Time Seen by Provider: 08:58 Date Seen: 12/09/21 Date of admission: 12/07/21 12:17 Primary care physician: Eloise Malave MD Admitting Clinician: Crystal Raymundo MD Consults: 12/07/21 13:31 Consult to Nutrition [CONS] Routine Comment: Reason for consult:: Nutritional Consult Comment: CHF Consult to Respiratory Therapy [CONS] Routine Comment: Reason(s) for RT Consult:: Consult Attending Physician on discharge: Crystal Raymundo MD Date of Discharge: 12/09/21 DS: Diagnosis Discharge Diagnosis (1) Acute respiratory failure with hypoxia: Status: Acute Problem details: TTE results from 12/07: - normal LV size with moderately increased wall thickness and hyperdynamic systolic function with an EF of 79% - sclerotic mitral valve with trace MR - normal cavity size of right ventricle with reduction in global systolic function and akinesis of mid free wall concerning for PE (2) Hypoxia: Status: Acute (3) Pulmonary embolism: Status: Acute (4) Elevated troponin: Status: Acute Problem details: Peak at 0.12 (5) Long QT interval: Status: Chronic Problem details: Patient is on escitalopram. This could be reduced or discontinued which may improve the prolonged QT. Patient will be following up with Cardiology. (6) Congestive heart failure: Status: Chronic (7) Essential hypertension: Status: Chronic (8) RAFAEL on CPAP: Status: Chronic (9) Pulmonary hypertension: Status: Chronic DS: Summary Hospital Course Hospital Course: This is a 76-year-old female presented through the emergency department for acute on chronic dyspnea. She had been having more shortness of breath over the last few weeks, especially when she was laying flat. She also had occasional chest pressure associated with the shortness of breath. She had no significant worsening lower extremity edema. EMS noted hypoxia with oxygen saturations 70-80% upon arrival to pick her up. This improved with supplemental oxygen. D-dimer was within age-appropriate limits and EKG showed long QT. She continued to need supplemental oxygen. Echocardiogram revealed reduction in global systolic function of the right ventricle and akinesis of mid free wall concerning for PE. CT chest was then obtained and revealed a pulmonary embolism for which she was started on Xarelto. She is requiring oxygen with activity. We did a home oxygen assessment and I have ordered homegoing oxygen for her. She is doing well today and is in stable condition for discharge home. I again verified the patient's dose of escitalopram, she confirmed is 15 mg daily. Due to prolonged QTC, this could be reduced which may be helpful. She will be following up with Cardiology, who can also help monitor her QTC. Time Spent with Patient Time attestation: Total time spent providing and/or coordinating discharge services: Exam Const: Vital Signs, click to edit/add: Vital Signs - 24 hr 12/08/21 11:11 12/08/21 15:15 12/08/21 15:15 Temperature 98.6 F 98.1 F Pulse Rate Pulse Rate [Right Radial] 59 L 72 Respiratory Rate 18 18 20 Blood Pressure [Ri ght Arm] 122/52 L 88/55 L Pulse Oximetry 94 61 L 91 Oxygen Delivery Me thod Room Air Room Air Room Air Oxygen Flow Rate 12/08/21 15:40 12/08/21 18:14 12/08/21 19:05 Temperature 98.5 F Pulse Rate 69 Pulse Rate [Right Radial] 67 Respiratory Rate 18 Blood Pressure [Ri ght Arm] 133/52 L 122/60 Pulse Oximetry 94 Oxygen Delivery Me thod Room Air Oxygen Flow Rate 12/08/21 23:00 12/08/21 23:00 12/09/21 02:00 Temperature 98.0 F Pulse Rate 57 L Pulse Rate [Right Radial] 60 Respiratory Rate 18 18 Blood Pressure [Ri ght Arm] 128/64 Pulse Oximetry 92 94 Oxygen Delivery Me thod Room Air Room Air Oxygen Flow Rate 12/09/21 03:00 12/09/21 07:32 12/09/21 07:49 Temperature Pulse Rate 59 L Pulse Rate [Right Radial] 59 L Respiratory Rate 18 Blood Pressure [Ri ght Arm] 138/67 Pulse Oximetry 97 94 Oxygen Delivery Me thod Nasal Cannula Room Air Oxygen Flow Rate 1 12/09/21 07:49 Temperature 98 F Pulse Rate Pulse Rate [Right Radial] 64 Respiratory Rate 16 Blood Pressure [Ri ght Arm] 140/61 H Pulse Oximetry 98 Oxygen Delivery Me thod Room Air Oxygen Flow Rate DS: Data Data Completed and Pending Completed studies during hospitalization: Ordering Physician: Natalie Anderson M.D. Date of Service: 12/07/21 Procedure(s): XR chest 1V portable Accession Number(s): [id number] cc: Eloise Malave M.D.; Natalie Anderson M.D.~ For Patients: As a result of the Cures Act, medical imaging exams and procedure reports are released immediately into your electronic medical record. You may view this report before your referring provider. If you have questions, please contact your health care provider. INDICATION: Hypoxia. TECHNIQUE: Chest 1 views. COMPARISON: None. FINDINGS: Lungs: Mild diffuse interstitial prominence. No focal consolidations. Pleura: No pleural effusion or pneumothorax. Heart and Mediastinum: The cardiomediastinal silhouette is normal. The vessels are unremarkable. Bones: Unremarkable. IMPRESSION: Interstitial prominence could be venous congestion or vascular crowding. Dictated by Darrel Maldonado MD @ 12/07/2021 9:36:16 AM (Electronically Signed) 12/07/2021 EKG: Sinus rhythm with premature supraventricular complexes. Heart rate 95 beats per minute. Cannot rule out anterior infarct, age undetermined. Prolonged QT, QTC 505 milliseconds. Echocardiogram: Normal left ventricular size, moderately increased wall thickness, hyperdynamic global systolic function, calculated EF 79%. Mitral valve is sclerotic, trace mitral regurgitation. Right ventricular cavity size is normal, global systolic RV function is moderately reduced with akinesis of the mid free wall concerning for pulmonary embolism (Hatch's sign). EKG: Sinus rhythm with occasional premature ventricular complexes and premature atrial complexes, heart rate 66 beats per minute. Low-voltage QRS. Prolonged QT, QTC 480 milliseconds. Ordering Physician: Crystal Raymundo M.D. Date of Service: 12/08/21 Procedure(s): CT angio chest PE protocol Accession Number(s): [id number] cc: Crystal Raymundo M.D.; Eloise Malave M.D.~ For Patients: As a result of the Cures Act, medical imaging exams and procedure reports are released immediately into your electronic medical record. You may view this report before your referring provider. If you have questions, please contact your health care provider. INDICATION: Abnormal echo COMPARISON: None TECHNIQUE: : CT examination of the chest was performed with the uneventful intravenous administration of 95 cc of Isovue 370 while thin axial sections were obtained from above the apices of the lungs to the lung bases. Please note that all CT scans at this facility use dose modulation, iterative reconstruction, and/or weight-based dosing when appropriate to reduce radiation dose to as low as reasonably achievable. FINDINGS: : HEART and MEDIASTINUM: The heart size is mildly enlarged. This is multi chamber enlargement but notably also involves the right heart. The central pulmonary arteries are enlarged which can indicate pulmonary hypertension. The RV/LV ratio is 1.2. Greater than 0.9 is indicative right heart strain. However, this appearance could also be due to pre-existing pulmonary hypertension unrelated to acute pulmonary embolus. PULMONARY ARTERIAL CIRCULATION: There is a tiny clot burden pulmonary embolus. This is near the left hilus and best seen on series 4, axial image 87 corresponding to coronal images series 6, image 151. LUNGS: The lungs show no focal consolidation or mass. The airways appear normal. Patchy basilar atelectasis PLEURAL SPACES: There is no pleural effusion, pneumothorax or pleural based mass. VISUALIZED UPPER ABDOMEN: The limited visualized upper abdominal structures appear normal. OSSEOUS STRUCTURES: Degenerative changes and scoliosis. TUBES and LINES: None. I discussed this case with Dr. Raymundo at 9:20 a.m. on December 08, 2021 IMPRESSION: 1. There is a very small pulmonary embolus. 2. Multichamber cardiac enlargement including right heart enlargement. The RV/LV ratio is 1.2 which generally indicates right heart strain. However, the dilated right ventricle could be unrelated to the small pulmonary embolus. There are enlarged central pulmonary arteries which can indicate pulmonary hypertension. 3. Trace bibasilar atelectasis. No pleural effusion or pneumothorax Please note that all CT scans at this facility use dose modulation, iterative reconstruction, and/or weight-based dosing when appropriate to reduce radiation dose to as low as reasonably achievable. Dictated by Jw Garcia MD @ 12/08/2021 9:22:07 AM (Electronically Signed) Labs on day of discharge: Labs from last 24 hours 12/09/21 12/09/21 05:58 05:58 WBC 4.28 L RBC 3.65 L Hgb 11.2 L Hct 34.1 MCV 93 MCH 31 MCHC 33 RDW Coeff of Dusty 11.8 Plt Count 196 Neut % (Auto) 72.7 H Lymph % (Auto) 13.1 L [place] % (Auto) 7.9 Eos % (Auto) 4.9 Baso % (Auto) 0.9 Neut # (Auto) 3.10 Lymph # (Auto) 0.60 L [place] # (Auto) 0.30 Eos # (Auto) 0.20 Baso # (Auto) 0.00 Abs Immat Gran (auto) 0.02 Sodium 136 Potassium 3.8 Chloride 101 Carbon Dioxide 31 BUN 19 Creatinine 0.6 Estimated Creat Clear 36.12 Estimated GFR 93 Glucose 98 Calcium 8.4 Discharge Plan Discharge Disposition: Home, Self-Care Date of Admission: 12/07/21 12:17 Attending Provider on Discharge: Carito Sebastian Primary Care Provider: Eloise Malave Condition: Stable Anticipated Discharge Date/Time: 12/09/21 11:00 Discharge Medications: New Xarelto 10 mg Tablet 15 mg PO BID 21 Days Qty: 63 0RF Rx Instructions: 15mg BID x21 days, then will need a new Rx from PCP for 20mg once/day (DME) Home Oxygen Misc See Rx Instructions .Route Qty: 1 0RF Rx Instructions: 3 Liters with activity (DME) Home Oxygen Misc See Rx Instructions .Route Qty: 1 0RF Rx Instructions: 3 Liters with Activity Continued escitalopram oxalate 5 mg tablet 5 mg PO DAILY carboxymethylcellulose sodium 1 % drops, liquid gel 1 drp ophthalmic (eye) DAILY simvastatin 40 mg tablet 40 mg PO HS metoprolol succinate 50 mg tablet extended release 24 hr 50 mg PO DAILY sodium chloride 5 % drops 5 drp ophthalmic (eye) DAILY omega-3 fatty acids 500 mg capsule 500 mg PO QDAY cholecalciferol (vitamin D3) 25 mcg (1,000 unit) tablet 25 mcg PO BID famotidine 20 mg tablet 20 mg PO BID furosemide 20 mg tablet 20 mg PO DAILY escitalopram oxalate 10 mg tablet 10 mg PO DAILY aspirin 81 mg tablet,delayed release (DR/EC) 81 mg PO BID Label Comments: Take 1 tablet by mouth 2 times daily with meals. acetaminophen 500 mg tablet 1,000 mg PO Q6H PRN Label Comments: Take 1,000 mg by mouth every 6 hours if needed. Max acetaminophen dose: 4000mg in 24 hrs. potassium chloride 10 mEq capsule, extended release 10 meq PO DAILY polyethylene glycol 3350 17 gram/dose powder 17 g PO BID Label Comments: Take 17 g by mouth 2 times daily. Discharge Orders: Discharge Order (Routine); Ordered 12/09/21 Ordered By: Carito Sebastian Patient Education: Rivaroxaban (By mouth), Pulmonary Embolism (DC) Activity Restrictions/Additional Instructions: You will take 15mg of Xarelto twice/day for 3 weeks, then Dr. Malave will send in the new prescription for 20mg once/day. Stop your aspirin since you'll be on the Xarelto. See both Dr. Malave and Delphine in the next few weeks for followup. Activity Level: Activity as Tolerated Discharge Diet: Regular Follow Up Appointments: Shira Akers MD [Other] (Clinic asked for an urgent referral to get patient in sooner. Referral faxed on 12/08. Clinic staff will contact patient to schedule appointment.) Eloise Malave MD [Primary Care Provider] - (Patient will receive a call from clinic for appointment. ) Forms: [employer] Info Instructions
[2021-12-09 11:11] VITALS: BP 134/57; PULSE 69; RESP 18; TEMP 37; O2SAT 94
--- NOTE | 2021-12-09 12:00 | PC.NURSE ---
Spoke with [facility] pharmacy regarding Xarelto prescription- stopped 10mg tablet prescription and they have received 15mg tablet prescription and will use that as it is cheaper for patient.
--- NOTE | 2021-12-09 12:37 | PC.NURSE ---
Discharge: Patient pleasant and cooperative. Up with SBA and walker. RA at time of discharge, given teachings on how to use home o2. Vitals stable and WNL. Discharge instructions on o2 with activity, medication changes, and follow ups given to patient and . Discharged from unit @ 1230 via wheelchair.
== END 2021-12-09 12:30 | disposition home or self-care (01) | DRG 189 ==
LOC: ED 12:04 → MEDSURG 16:15
PROVIDERS: Internal Medicine; Admitting Provider Family Medicine; Emergency Provider Family Medicine; PCP Family Medicine; Visit Provider Family Medicine
DX: J96.01 Acute respiratory failure with hypoxia (principal); I26.99 Other pulmonary embolism without acute cor pulmonale; I50.22 Chronic systolic (congestive) heart failure; I27.20 Pulmonary hypertension, unspecified; I11.0 Hypertensive heart disease with heart failure; I48.91 Unspecified atrial fibrillation; F41.8 Other specified anxiety disorders; G47.33 Obstructive sleep apnea (adult) (pediatric); I45.81 Long QT syndrome
CPT/HCPCS: 36415; 64483; 71045; 71260; 80048; 80053; 83880; 84484; 85025; 85379; 86140; 87635; 93005; 93306; 94761; 99284; A9270; J1650; J1940; Q9966; Q9967

== ENCOUNTER 2022-02-20 19:50 | Emergency (ER) | payer MEDICARE, BC, SELFPAY ==
[2022-02-20 19:58] VITALS: BP 127/68; PULSE 61; RESP 16; TEMP 36.2; O2SAT 97; BMI 34.0
[2022-02-20 20:59] LABS: Basophils Absolute Auto 0.06 K/uL (0.00-0.30); Eosinophils Absolute Auto 0.25 K/uL (0.00-0.50); Eosinophils Percent Auto 4.1 % (0.0-7.0); Hematocrit 38.6 % (33.0-51.0); Lymphocytes Percent Auto 19.7 % (20-44); Mean Corpuscular HGB Conc 34 gm/dL (32-36); Mean Corpuscular Hemoglobin 31 pg (26-34); Mean Corpuscular Volume 93 fL (80-100); Monocytes Percent Auto 10.1 % (0.0-11.0); Neutrophils Absolute Auto 3.92 K/uL (1.7-7.0); Neutrophils Percent Auto 64.9 % (42.0-72.0); Platelet Count* 256 K/uL (140-440); RDW Coefficient of Variation % 11.7 % (11.5-15.5); Red Blood Count 4.16 m/uL (4.00-5.20); White Blood Count* 6.04 K/uL (4.50-11.00)
[2022-02-20 21:10] LABS: Slide Review Reflex No
--- OUTSIDE RECORDS SUMMARY | 2022-02-20 21:11 | XMS_ITS | Encounter Summary ---
:1945 Author Organization [facility] Address [facility] [place] [address] Care Team Providers Name Role Phone Eloise Malave MD Primary Care Provider Ayala Lemos APRN PROPULSION GENERATOR REPAIRER Unavailable [phone] Tiffanie Lomeli PA-C Unavailable [phone] Ivis Akers DO Unavailable [phone] Encounter Details Date Type Department Care Team Description 02/19/2022 [facility] Tiffanie Lomeli RAFAEL (obs tructive sleep [facility] Linda Garcia PA-C apnea) (Primary Dx) [address] [facility] [address] [place] [address] [address] [place] [address] [place] [id number] Social History Tobacco Use Types Packs/Day Years Used Date Smoking Tobacco: Never Smokeless Tobacco: Never Alcohol Use Standard Drinks/Week Comments No 0 (1 standard drink = 0.6 oz pure alcoho l) Sex Assigned at Date Recorded Not on file COVID-19 Exposure Response Date Recorded In the last 10 days, have you been in contact with No / Unsu re 02/12/2022 8:53 AM CDT someone who was confirmed or suspected to have Coronavirus/COVID-19? documented as of this encounter Plan of Treatment Upcoming Encounters Date Type Specialty Care Team Description 05/16/2022 Office Visit Cardiology Jorge Luis Akers DO [address] [place] [id number] (Wo rk) documented as of this encounter Visit Diagnoses Diagnosis RAFAEL (obstructive sleep apnea) - Primary Obstructive sleep apnea (adult) (pediatr ic) documented in this encounter Additional Health Concerns Assessment Noted Time PHQ-9 Depression Total Score: 4 05/29/2021 8:47 AM CAN TESTER documented as of this encounter Care Teams Machine Setter Supervisor Relationship Specialty Start Date End Date Eloise Malave MD PCP - General Family Medicine 10/07/20 [facility] [address] [place], [place] [id number] Ayala Lemos, Assigned Heart and 10/02/20 TAX COMPLIANCE AGENT PROPULSION GENERATOR REPAIRER Vascular Provider [address] [id number] Tiffanie Lomeli Assigned Sleep 01/01/21 RAOUL Garcia Provider [address] [place] [address] Ivis Akers MD Cardiovascular Disease 01/05/22 DO Shira [address] [place] [id number] documented as of this encounter
--- OUTSIDE RECORDS SUMMARY | 2022-02-20 21:11 | XMS_ITS | Encounter Summary ---
:1945 Author Organization [facility] Address [address] [place] [address] Care Team Providers Name Role Phone Eloise Malave MD Primary Care Provider Ayala Lemos APRN BROADBAND ENGINEER Unavailable [phone] Tiffanie Lomeli PA-C Unavailable [phone] Ivis Akers DO Unavailable [phone] Encounter Details Date Type Department Care Team Description 01/09/2022 Lab [facility] Acu te cor pulmonale (H) (Primary Dx); [facility] Personal history of venous t hrombosis and embolism; [address] [facility] Shortness of breath; [place] [address] Other acute pulmonary emboli sm with acute cor pulmonale (H); [phone] History of deep venous thrombosis; Abnormal coagul ation profile ; SOB (shortness of breath) Social History Tobacco Use Types Packs/Day Years Used Date Smoking Tobacco: Never Smokeless Tobacco: Never Alcohol Use Standard Drinks/Week Comments No 0 (1 standard drink = 0.6 oz pure alcoho l) Sex Assigned at Date Recorded Not on file COVID-19 Exposure Response Date Recorded In the last 10 days, have you been in contact with No / Unsu re 01/09/2022 1:18 PM CDT someone who was confirmed or suspected to have Coronavirus/COVID-19? documented as of this encounter Plan of Treatment Upcoming Encounters Date Type Specialty Care Team Description 05/16/2022 Office Visit Cardiology Jorge Luis Akers DO [address] [place] [address] (Wo rk) documented as of this encounter Procedures Procedure Name Priority Date/Time Associated Comments Diagnosis CARDIOLIPIN JENNA IGG Routine 01/09/2022 1:35 PM Acute cor pulmo nale Results for this AND IGM CDT (H) procedure are [facility] and embolism Shortness of breath BETA 2 GLYCOPROTEIN 1 Routine 01/09/2022 1:35 PM Acute cor pul monale Results for this ANTIBODY IGM CDT (H) procedure are in [facility] and embolism Shortness of breath N TERMINAL PRO BNP Routine 01/09/2022 1:35 PM Acute cor pulmon hyun Results for this OUTPATIENT CDT (H) procedure are in [facility]. and embolism Shortness of breath LUPUS ANTICOAGULANT Routine 01/09/2022 1:35 PM Acute cor pulmo nale Results for this PANEL CDT (H) procedure are in [facility]. and embolism Shortness of breath BASIC METABOLIC PANEL Routine 01/09/2022 1:35 PM Other acute Results for this CDT pulmonary embolism procedure are in with acute cor the results pulmonale (H) section. History of deep venous thrombosi s Abnormal coagulation profile SOB (shortness of breath) documented in this encounter Results (ABNORMAL) Basic metabolic panel (01/09/2022 1:35 PM CDT) Analysis Performed At [facility]o logist Time Signature Sodium 139 133 - 144 01/09/2022 [facility] mmol/L 6:11 PM CDT Potassium 4.6 3.4 - 5.3 01/09/2022 [facility] mmol/L 6:11 PM CDT Chloride 105 94 - 109 01/09/2022 [facility] mmol/L 6:11 PM CDT Carbon Dioxide 26 20 - 32 01/09/2022 [facility] (CO2) mmol/L 6:11 PM CDT Anion Gap 8 3 - 14 01/09/2022 [facility] mmol/L 6:11 PM CDT Urea Nitrogen 14 7 - 30 01/09/2022 [facility] mg/dL 6:11 PM CDT Creatinine 0.68 0.52 - 01/09/2022 [facility] 1.04 mg/dL 6:11 PM CDT Calcium 9.2 8.5 - 10.1 01/09/2022 [facility] mg/dL 6:11 PM CDT Glucose 127 (H) 70 - 99 01/09/2022 [facility] mg/dL 6:11 PM CDT GFR Estimate 90 >60 01/09/2022 [facility] mL/min/1.7 6:11 PM CDT 3m2 Comment: Effective April 11, 2021 eGF Rcr in adults is calculated using the 2020 CKD-EPI creatinine equation which includ es age and gender (Harpreet et al., NEJ, DOI: 10.1056/ENWAbm5203201) Specimen Anatomical Collection Method / Collection Time Recei hang Time (Source) Location / Volume Laterality Blood BLOOD SPECIMEN / Venipuncture / 01/09/2022 1:35 2021 1:35 Unknown Unknown PM CDT PM CDT Ivis Akers DO LAB - BLOOD ORDERABLES Performing Organization Address City/State/ZIP Code Phon e Number [facility] [place], [place] [phone] [place] [facility] [phone] [place] [address] Lab (no room number, 1st floor of clinic) [facility] [place], [place] [phone] [facility] [address] Lab (no room number, 1st floor of clinic) (ABNORMAL) N terminal pro BNP outpatient (01/09/2022 1:35 PM CDT) Analysis Performed At [facility] Time Signature N Terminal Pro 996 (H) 0 - 450 01/09/2022 [facility] BNP Outpatient pg/mL 6:49 PM CDT Comment: Reference range shown and results flagge d as abnormal are for the outpatient, non acute settings. Establishing a baseline value for each individual patient is useful for follow-up. Suggested inpatient cut points for confi rming diagnosis of CHF in an acute setting are: >450 pg/mL (age 18 to less than 50) >900 pg/mL (age 50 to less than 75) >1800 pg/mL (75 yrs and older) An inpatient or emergency department NT- proPBNP <300 pg/mL effectively rules out acute CHF, with 99% negative predictive value. Specimen Anatomical Collection Method / Collection Time Recei hang Time (Source) Location / Volume Laterality Blood BLOOD SPECIMEN / Venipuncture / 01/09/2022 1:35 2021 1:35 Unknown Unknown PM CDT PM CDT Ivispaul Gutierrezfer Delphine LAB - BLOOD ORDERABLES Performing Organization Address City/State/ZIP Code Phon e Number [facility] [place] [phone] Lab [address] [facility] [address] Building, Room 3-580 Lupus Anticoagulant Panel (01/09/2022 1:35 PM CDT) Specimen Anatomical Collection Method / Collection Time Recei hang Time (Source) Location / Volume Laterality Blood BLOOD SPECIMEN / Venipuncture / 01/09/2022 1:35 2021 1:35 Unknown Unknown PM CDT PM CDT Ivis Shira Kylemiguel LAB - BLOOD ORDERABLES Performing Organization Address City/State/ZIP Code Phon e Number [place] [address] Coagulation [address] [facility] [address] [facility], Room 3-580 Cardiolipin Jenna IgG and IgM (01/09/2022 1:35 PM CDT) [facility] gist Method Time Signature Cardiolipin Jenna <2.0 <10.0 01/11/2022 [facility] IgG Instrument GPL-U/mL 10:15 AM CDT CORE/PROT/EN D Value O Cardiolipin Negative Negative 01/11/2022 [facility] Antibody IgG 10:15 AM CDT CORE/PROT/END O Cardiolipin Jenna <2.0 <10.0 01/11/2022 [facility] IgM Instrument MPL-U/mL 10:15 AM CDT CORE/PROT/EN D Value O Cardiolipin Negative Negative 01/11/2022 [facility] Antibody IgM 10:15 AM CDT CORE/PROT/END O Specimen Anatomical Collection Method / Collection Time Recei hang Time (Source) Location / Volume Laterality Blood BLOOD SPECIMEN / Venipuncture / 01/09/2022 1:35 2021 1:35 Unknown Unknown PM CDT PM CDT Ivis Akers DO LAB - BLOOD ORDERABLES Performing Organization Address City/State/ZIP Code Phon e Number SPECIALTY CORE/PROT/ENDO [place], [place] [address] Core/Prot/Endo [address] [facility] [address] Building, Room 3-580 Beta 2 Glycoprotein 1 Antibody IgM (01/09/2022 1:35 PM CDT) P athologist Signature Beta 2 <2.4 <7.0 U/mL 01/11/2022 [facility] Glycoprotein 1 10:15 AM CDT CORE/PROT/EN D Antibody IgM O Comment: Negative Specimen Anatomical Collection Method / Collection Time Recei hang Time (Source) Location / Volume Laterality Blood BLOOD SPECIMEN / Venipuncture / 01/09/2022 1:35 2021 1:35 Unknown Unknown PM CDT PM CDT Ivis Akers DO LAB - BLOOD ORDERABLES Performing Organization Address City/State/ZIP Code Phon e Number SPECIALTY CORE/PROT/ENDO Specialty [place], [place] [address] Core/Prot/Endo [address] [facility] [address] Building, Room 3-580 documented in this encounter Visit Diagnoses Diagnosis Acute cor pulmonale (H) - Primary Acute cor pulmonale Personal history of venous thrombosis an d embolism Shortness of breath Other acute pulmonary embolism with acut e cor pulmonale (H) History of deep venous thrombosis Personal history of venous thrombosis an d embolism Abnormal coagulation profile Abnormal coagulation profile SOB (shortness of breath) Shortness of breath documented in this encounter Additional Health Concerns Assessment Noted Time PHQ-9 Depression Total Score: 4 05/29/2021 8:47 AM PRODUCER ASSISTANT documented as of this encounter Care Teams Cinder Dump Crane Operator Relationship Specialty Start Date End Date HettEloise MD PCP - General Family Medicine 10/07/20 [facility] [address] [place] [address] Ayala Lemos, Assigned Heart and 10/02/20 FORGER HELPER BROADBAND ENGINEER Vascular Provider [address] [id number] Tiffanie Lomeli Assigned Sleep 01/01/21 RAOUL Garcia Provider [address] [place] [address] Ivis Akers MD Cardiovascular Disease 01/05/22 DO Shira [address] [id number] documented as of this encounter
--- OUTSIDE RECORDS SUMMARY | 2022-02-20 21:11 | XMS_ITS | Encounter Summary ---
:1945 Author Organization [facility] Address [address] [place] [address] Care Team Providers Name Role Phone Eloise Malave MD Primary Care Provider Ayala Lemos APRN HOSE TENDER Unavailable [phone] Tiffanie Lomeli PA-C Unavailable [phone] Ivis Akers DO Unavailable [phone] Encounter Details Date Type Department Care Team Description 01/11/2022 Telephone [facility] Heart Alex Prince RN [address] [address] Social History Tobacco Use Types Packs/Day Years [...] have Coronavirus/COVID-19? documented as of this encounter Miscellaneous Notes Telephone Encounter - Vivi Rollins RN - 01/17/2022 10:01 AM CDT Spoke with patient who has not heard from anyone regarding overnight oximetry. Message sent to scheduling to help patient coordinate this. Vivi Rollins RN on 01/17/2022 at 10:02 AM Telephone Encounter - Vivi Rollins RN - 01/16/2022 11:30 AM CDT Images from the original note were not included. Ivis Akers, DO Alex Prince RN 1 hour ago (10:00 AM) H[facility]ctor Estrella labs, can you see if she ever had the overnite oximetry? She was sent home from the hospital with O2 supplement but didn't know if she needed to continue using it. I had ordered an overnite oximetry to see if she still needs it. ??I am not sure why they are sending me her CPAP settings. ??This isn't what I asked for, I am just trying to help her out because no one else is addressing the home oxygen. Message left for patient to return call to clinic. Vivi Rollins RN on 01/16/2022 at 1:55 PM Telephone Encounter - Alex Prince RN - 01/11/2022 4:04 PM CDT Lab results noted. BNP elevated from previous reading. Patient last saw Dr. Akers on 01/05/22 and labs were going to be drawn to determine if diuretic dose needed changing. RN will send to Dr. Akers for further review and recommendation. Component Latest Ref Rng & Units 01/09/2022 Sodium 133 - 144 mmol/L 139 Potassium 3.4 - 5.3 mmol/L 4.6 Chloride 94 - 109 mmol/L 105 Carbon Dioxide 20 - 32 mmol/L 26 Anion Gap 3 - 14 mmol/L 8 Urea Nitrogen 7 - 30 mg/dL 14 Creatinine 0.52 - 1.04 mg/dL 0.68 Calcium 8.5 - 10.1 mg/dL 9.2 Glucose 70 - 99 mg/dL 127 (H) GFR Estimate >60 mL/min/1.73m2 90 Cardiolipin Jagruti IgG Instrument Value <10.0 GPL-U/mL <2.0 Cardiolipin IgG Jagruti Negative Negative Cardiolipin Jagruti IgM Instrument Value <10.0 MPL-U/mL <2.0 Cardiolipin IgM Jagruti Negative Negative Beta 2 Glycoprotein 1 Antibody IgM <7.0 U/mL <2.4 N-Terminal Pro Bnp 0 - 450 pg/mL 996 (H) documented in this encounter Plan of Treatment Upcoming Encounters Date Type Specialty Care Team Description 05/16/2022 Office Visit Cardiology Jorge Luis Akers DO [address] [place] [id number] (Wo rk) documented as of this encounter Visit Diagnoses Not on filedocumented in this encounter Additional Health Concerns Assessment Noted Time PHQ-9 Depression Total Score: 4 05/29/2021 8:47 AM WARP TESTER documented as of this encounter Care Teams Fermenting Cellars Supervisor Relationship Specialty Start Date End Date BubbatEloise MD PCP - General Family Medicine 10/07/20 [facility] [address] [place], [place] [id number] Ayala Lemos, Assigned Heart and 10/02/20 CLIENT SERVICE SUPERVISOR HOSE TENDER Vascular Provider [address] [id number] Tiffanie Lomeli Assigned Sleep 01/01/21 RAOUL Garcia Provider [address] [place] [id number] Ivis Akers MD Cardiovascular Disease 01/05/22 DO Shira [address] [place] [address] documented as of this encounter
--- OUTSIDE RECORDS SUMMARY | 2022-02-20 21:11 | XMS_ITS | Encounter Summary ---
:1945 Author Organization [facility] Address [address] [place] [address]. [place] [address] Care Team Providers Name Role Phone Eloise Malave MD Primary Care Provider Ayala Lemos APRN COATING LINE WORKER Unavailable [phone] Tiffanie Viramontes PA-C Unavailable [phone] Ivis Akers DO Unavailable [phone] Reason for Visit Reason Onset Date Comments Call Back 01/09/2022 Encounter Details Date Type Department Care Team Description 01/09/2022 Telephone [facility] Eloise Malave MD Call Back Scheduling [facility] [address] [place] [address] [facility] [phone] [place] [address] (Wo rk) Social History Tobacco Use Types Packs/Day Years [...] this encounter Miscellaneous Notes Telephone Encounter - Bolivar Srinivasan - 01/09/2022 3:53 PM CDT Contacted patient. She wanted her CPAP settings sent to her Junior Network Engineer. She also had questions regarding her ordered oximetry which I directed her to ask her fuel cell battery technician's office about. CPAP download uploaded to media for her fuel cell battery technician. APAP settings 5-12 cm H20. Telephone Encounter - Sugey Wolfe - 01/09/2022 11:51 AM CDT Reason for call: Other Patient called regarding (reason for call): call back Additional comments: PT needs to know what her CPAP settings are currently at and what the oximetry levels are. PT states Dr Akers needs this info. Please reach out to pt. Phone number to reach patient: Cell number on file: Telephone Information: Best Time: Today: Not between 1-2:30 Please Can we leave a detailed message on this number? YES Travel screening: Not Applicable documented in this encounter Plan of Treatment Upcoming Encounters Date Type Specialty Care Team Description 05/16/2022 Office Visit Cardiology Jorge Luis Akers DO [address] [place] [id number] (Wo rk) documented as of this encounter Visit Diagnoses Not on filedocumented in this encounter Additional Health Concerns Assessment Noted Time PHQ-9 Depression Total Score: 4 05/29/2021 8:47 AM ESTATE AND TRUST TAX PRINCIPAL documented as of this encounter Care Teams Gas Analyst Relationship Specialty Start Date End Date Eloise Malave MD PCP - General Family Medicine 10/07/20 [facility] [address] [facility] [place] [id number] Ayala Lemos, Assigned Heart and 10/02/20 SHOT PEENING OPERATOR COATING LINE WORKER Vascular Provider [address] [address] Tiffanie Lomeli Assigned Sleep 01/01/21 RAOUL Garcia Provider [address] [place] [address] Ivis Akers MD Cardiovascular Disease 01/05/22 DO Shira [address] [place] [address] documented as of this encounter
--- OUTSIDE RECORDS SUMMARY | 2022-02-20 21:11 | XMS_ITS | Clinical Summary ---
:1945 Author Organization [facility] Address [address] [place] [address] Care Team Providers Name Role Phone Eloise Malave MD Primary Care Provider Ayala Lemos APRN ELECTRICAL TECHNICIAN Unavailable [phone] Tiffanie Lomeli PA-C Unavailable [phone] Ivis Akers DO Unavailable [phone] Allergies Active Allergy Reactions Severity Noted Date Comments Amoxicillin Nausea 07/16/2007 Sulfa Drugs 07/25/2016 Medications Medication Sig Dispensed Refills Start Date End Date Status escitalopram (LEXAPRO) 10 Take 15 mg by 0 11/28/2016 Active MG tablet mouth simvastatin (ZOCOR) 40 MG Take 40 mg by 0 07/08/2019 Active tablet mouth daily cholecalciferol (VITAMIN Take 1,000 0 Active D-[address]) 25 MCG Units by mouth (1000 UT) TABS daily famotidine (PEPCID) 20 MG Take 20 mg by 0 Active tablet mouth 2 times daily potassium chloride ER Take 10 mEq by 0 11/16/2020 Active (MICRO-K) 10 MEQ CR mouth daily capsule metoprolol succinate ER Take 1 tablet 90 tablet 3 12/14/2021 Active (TOPROL XL) 50 MG 24 hr (50 mg) by tabletIndications: mouth daily Chronic diastolic congestive heart failure (H) furosemide (LASIX) 20 MG Take 1 tablet 90 tablet 2 12/05/2021 Active tabletIndications: (20 mg) by Chronic diastolic mouth daily congestive heart failure (H) XARELTO ANTICOAGULANT 20 0 12/20/2021 Active MG TABS tablet Active Problems Problem Noted Date RAFAEL (obstructive sleep apnea) 12/28/2020 Overview: 12/14/2020 [facility] (183.0 lbs) - AHI 41.4, RDI 43.3, Supine AHI 40.3, REM AHI 67.4, Low O2 65.0%, Time Spent </=88% 19.6 minutes Hyperlipidemia LDL goal <100 09/02/2020 Major depressive disorder, single episode, in full rem ission 07/22/2020 Mixed incontinence 03/17/2020 Microscopic hematuria 03/17/2020 Paroxysmal atrial fibrillation 01/23/2019 Obesity with body mass index 30 or greater 01/14/2019 Malignant neoplasm of left breast in female, estrogen receptor positive 08/26/2018 Gastroesophageal reflux disease 07/08/2018 Overview: Overview: Gastroesophageal Reflux Gastroesophageal Reflux Essential hypertension 11/16/2016 Personal history of other venous thrombosis and emboli sm 08/31/2016 Chronic diastolic heart failure 08/10/2016 S/P repair of ventral hernia 08/10/2016 Resolved Problems Problem Noted Date Resolved Date Muscle weakness (generalized) 10/05/2020 11/30/2020 Encounters Date Type Specialty Care Team Description 02/19/2022 Orders Only Sleep Medicine Tiffanie Lomeli RAFAEL (obstru ctive sleep RAOUL Garcia apnea) (Prim nabil Dx) 02/12/2022 Travel 01/11/2022 Telephone Cardiology Alex Prince RN 01/09/2022 Lab Lab Acute cor pulmo nale (H) (Primary Dx); Personal histor y of venous thrombosis and embolism; Shortness of br eath; Other acute pul monary embolism with acute cor pulmonale (H); History of deep venous thrombosis; Abnormal coagul ation profile ; SOB (shortness of breath) 01/09/2022 Travel 01/09/2022 Telephone Central Eloise Malave Call Back Scheduling MD Dipika 01/05/2022 Lab Lab Other acute pul monary embolism with acute cor pulmonale (H); History of deep venous thrombosis; Abnormal coagul ation profile ; SOB (shortness of breath) 01/05/2022 Office Visit Cardiology Delphine, Other acute pul monary embolism with acute cor pulmonale (H) (Primary Dx); Ivis History of deep venous thrombosis; DO Shira Abnormal coagul ation profile ; SOB (shortness of breath) 01/05/2022 Documentation Only Cardiology Joy Solorzano RN 01/05/2022 Travel 12/13/2021 Telephone Cardiology Delphine, Referral Ivis Silva DO 12/12/2021 Transcribe Orders Provider, Essential (primary) hypertension (Primary Dx); Generic Acute respirato ry failure with hypoxia (H); External Data Abnormal elect rocardiogram (ECG) (EKG); Heart failure, unspecified (H); Other specified abnormalities of plasma proteins; Other pulmonary embolism without acute cor pulmonale (H); Unspecified atr ial fibrillation (H) 12/12/2021 Documentation Only Sleep Medicine Hiwot Vieira Sleep Problem (PHONE CALL) 12/05/2021 Refill Cardiology Delphine, Refill Request Ivis (furosemide) DO Shira 12/05/2021 Orders Only Cardiology Anna Bush Chronic acosta erika Hoffman RN congestive hear t failure (H) from Last 3 Months Immunizations Name Administration Dates Next Due FLU 6-35 months 01/15/2009 Influenza (High Dose) 3 valent 01/24/2019, 01/16/2018, 01/15, vaccine 01/02/2016, 02/05/2015, 02/08/2014, 04/17/2013, 03/05/2012 Influenza (IIV3) PF 03/02/2011 Influenza, Quad, High Dose, Pf, 65yr+ 02/24/2021, 01/22/2020 (Fluzone HD) Pneumo Conj 13-V (2010&after) 06/15/2015 Pneumococcal 23 valent 08/14/2011 TD (ADULT, 7+) 11/01/2018 Zoster vaccine recombinant adjuvanted 12/10/2020 (SHINGRIX) Family History Medical History Relation Comments Diabetes Brother Cancer Father Diabetes Father Cancer Mother Relation Status Comments Brother Father Mother Social History Tobacco Use Types Packs/Day Years Used Date Smoking Tobacco: Never Smokeless Tobacco: Never Tobacco Cessation: Counseling Given: No Alcohol Use Standard Drinks/Week Comments No 0 (1 standard drink = 0.6 oz pure alcoho l) Sex Assigned at Date Recorded Not on file COVID-19 Exposure Response Date Recorded In the last 10 days, have you been in contact with No / Unsu re 02/12/2022 8:53 AM CDT someone who was confirmed or suspected to have Coronavirus/COVID-19? Last Filed Vital Signs Vital Sign Reading Time Taken Comments Blood Pressure 110/60 01/05/2022 1:07 PM CDT Pulse 60 01/05/2022 1:07 PM CDT Temperature 36.5 ??C (97.7 ??F) 07/25/2016 3:36 PM CDT Respiratory Rate 20 07/25/2016 3:36 PM CDT Oxygen Saturation 96% 01/05/2022 1:07 PM CDT Inhaled Oxygen Concentration - - Weight 83.7 kg (184 lb 8 oz) 01/05/2022 1:07 PM CDT Height 165.1 cm (5' 5) 01/05/2022 1:07 PM CDT Body Mass Index 30.7 01/05/2022 1:07 PM CDT Plan of Treatment Upcoming Encounters Date Type Specialty Care Team Description 05/16/2022 Office Visit Cardiology Jorge Luis Akers DO [address] [place] [address] (Wo rk) Health Maintenance Due Date Last Done Comments ADVANCE CARE PLANNING 1945 ALT 1945 ANNUAL REVIEW OF HM ORDERS 1945 DEPRESSION ACTION PLAN 1945 DEXA 1945 HEPATITIS B IMMUNIZATION 1945 (1 of 3 - 3-dose series) HF ACTION PLAN 1945 LIPID 1945 TSH W/FREE T4 REFLEX 1945 HEPATITIS C SCREENING 11/07/1963 FALL RISK ASSESSMENT 2010 CBC 07/25/2017 07/25/2016 PHQ-9 11/26/2021 05/29/2021 BMP 07/09/2022 01/09/2022, 09/20/2020, 07/25/2016 MEDICARE ANNUAL WELLNESS 12/20/2022 12/20/2021, 07/22/2020 VISIT DTAP/TDAP/TD IMMUNIZATION 11/01/2028 11/01/2018, 08/12/2008 (3 - Td or Tdap) COLONOSCOPY Discontinued 05/23/2006 COLORECTAL CANCER Discontinued SCREENING Pneumococcal Vaccine: 65+ Completed 06/15/2015, 08/14/2011 Years ZOSTER IMMUNIZATION Completed 08/31/2021, 12/10/2020 MAMMO SCREENING Discontinued 11/08/2021 COVID-19 Vaccine Completed 01/26/2022, 03/15/2021, 07/15/2020, Additional history exists INFLUENZA VACCINE Completed 01/26/2022, 02/24/2021, 01/22/2020, Additional history exists CT COLONOGRAPHY Discontinued FIT-DNA (Cologuard) Discontinued FIT Discontinued FLEX SIG Discontinued IPV IMMUNIZATION Aged Out No longer eligi ble based on patient 's age to complete this topic MENINGITIS IMMUNIZATION Aged Out No longe r eligible based on patient 's age to complete this topic Procedures Procedure Name Priority Date/Time Associated Comments Diagnosis N TERMINAL PRO BNP Routine 01/09/2022 1:35 PM Acute cor pulmon hyun Results for this OUTPATIENT CDT (H) procedure are in [facility]. and embolism Shortness of breath LUPUS ANTICOAGULANT Routine 01/09/2022 1:35 PM Acute cor pulmo nale Results for this PANEL CDT (H) procedure are in [facility] thrombosis section. and embolism Shortness of breath CARDIOLIPIN JENNA IGG Routine 01/09/2022 1:35 PM Acute cor pulmo nale Results for this AND IGM CDT (H) procedure are in [facility] venous thrombosis section. and embolism Shortness of breath BETA 2 GLYCOPROTEIN 1 Routine 01/09/2022 1:35 PM Acute cor pul monale Results for this ANTIBODY IGM CDT (H) procedure are in [facility]. and embolism Shortness of breath BASIC METABOLIC PANEL Routine 01/09/2022 1:35 PM Other acute Results for this CDT pulmonary embolism procedure are in with acute cor the results pulmonale (H) section. History of deep venous thrombosi s Abnormal coagulation profile SOB (shortness of breath) from Last 3 Months Results Cardiolipin Jenna IgG and IgM (01/09/2022 1:35 PM CDT) [facility] Method Time Signature Cardiolipin Jenna <2.0 <10.0 [...] LAB - BLOOD ORDERABLES Performing Organization Address City/[facility]/ZIP Code Phon e Number [facility] CORE/PROT/ENDO [place], [place] [address] Core/Prot/Endo [address] [facility] [address] [facility], Room 3-580 Beta 2 Glycoprotein 1 Antibody [...] Address City/State/ZIP Code Phon e Number [facility] CORE/PROT/ENDO [facility] [place], [place] [address] Core/Prot/Endo [address] [facility] [address] Building, Room 3-580 (ABNORMAL) N terminal pro BNP outpatient (01/09/2022 1:35 PM CDT) Analysis Performed At Patho logist Time Signature N Terminal Pro 996 (H) [...] Unknown PM CDT PM CDT Ivis Akers LAB - BLOOD ORDERABLES Performing Organization Address City/[facility]/ZIP Code Phon [place] [address] [phone] [facility], Room 3-580 Lupus Anticoagulant Panel (01/09/2022 1:35 PM CDT) Specimen Anatomical Collection Method / Collection Time Recei hang Time (Source) Location / Volume Laterality Blood BLOOD SPECIMEN / Venipuncture / 01/09/2022 1:35 2021 1:35 Unknown Unknown PM CDT PM CDT Ivis Gutierrezfer Delphine LAB - BLOOD ORDERABLES Performing Organization Address City/[facility]/ZIP [facility] [place] [address] Coagulation [address] [facility], Room 3-580 (ABNORMAL) Basic metabolic panel (01/09/2022 1:35 PM [...] es age and gender (Harpreet et al., NEJM, DOI: 10.1056/[id number]) Specimen Anatomical Collection Method / Collection Time Recei hang Time (Source) Location / Volume Laterality Blood BLOOD SPECIMEN / Venipuncture / 01/09/2022 1:35 2021 1:35 Unknown Unknown PM CDT PM CDT Ivis Akers DO LAB - BLOOD ORDERABLES Performing Organization Address City/State/ZIP Code Phon e Number [facility] [place], [place] [phone] [facility] [phone] [place] [address] Lab (no room number, 1st floor of clinic) [facility] [place], [place] [phone] Clinic - [facility] [phone] [address] Lab (no room number, 1st floor of clinic) from Last 3 Months Insurance Payer Benefit Plan / Subscriber ID Effective Phone Address T ype Group Dates MEDICARE MEDICARE [id number] 2018-Pres [phone] ATTN NACHO [place] Medicare ent 40 [address] [facility] [place] [address] BCBS BCBS OF [place] [id number] 2018-Prese [phone] [address] [address] Indemnity nt 00 [place] [address] Care Teams Ultra Sound Technician Relationship Specialty Start Date End Date BubbatEloise MD PCP - General Family Medicine 10/07/20 [facility] [address] [address] [place], [place] [id number] Ayala Lemos, Assigned Heart and 10/02/20 AWNING SPREADER ELECTRICAL TECHNICIAN Vascular Provider [address] [address] Tiffanie Lomeli Assigned Sleep 01/01/21 RAOUL Garcia Provider [address] [place] [address] Ivis Akers MD Cardiovascular Disease 01/05/22 DO Shira [address] [place] [id number]
--- OUTSIDE RECORDS SUMMARY | 2022-02-20 21:12 | XMS_ITS | Encounter Summary ---
:1945 Author Organization [facility] Address [address] [place] [address]. [place] [address] Care Team Providers Name Role Phone Yesenia Granger MD Unavailable HettEloise MD Primary Care Provider Ayala Lemos APRN ENTRY ENGINEER Unavailable [phone] Tiffanie Lomeli PA-C Unavailable [phone] Reason for Visit Reason Onset Date Comments Refill Request 12/05/2021 furosemide Encounter Details Date Type Department Care Team Description 12/05/[address] [facility] Heart Ivis Akers Refill Request Clinic [facility] ShiraDO (furosemide) [address] [facility] [address] [place] [address] [phone] Social History Tobacco Use Types Packs/Day Years Used Date Smoking Tobacco: Never Smokeless Tobacco: Never Alcohol Use Standard Drinks/Week Comments No 0 (1 standard drink = 0.6 oz pure alcoho l) Sex Assigned at Date Recorded Not on file documented as of this encounter Miscellaneous Notes Telephone Encounter - Brian Carvalho RN - 12/05/2021 1:07 PM CDT [facility] Cardiology Refill Guideline reviewed. Refill meets criteria. documented in this encounter Plan of Treatment Upcoming Encounters Date Type Specialty Care Team Description 05/16/2022 Office Visit Cardiology Jorge Luis Akers DO [address] [place] [id number] (Wo rk) documented as of this encounter Visit Diagnoses Diagnosis Chronic diastolic congestive heart failu re (H) Chronic diastolic heart failure documented in this encounter Additional Health Concerns Assessment Noted Time PHQ-9 Depression Total Score: 4 05/29/2021 8:47 AM MOISTURE CONDITIONER OPERATOR documented as of this encounter Care Teams Mash Tub Cooker Operator Relationship Specialty Start Date End Date Bubbat, Eloise Bar MD PCP - General Family Medicine 10/07/20 [facility] [address] [place], [place] [id number] Yesenia Granger, Assigned Surgical Provider 02/2112/15/[address] [place] [address] [address] [place], [place] [address] Ayala Lemos APRN Assigned Heart and 10/02/20 ENTRY ENGINEER Vascular Provider [address] [address]84[address] Tiffanie Lomeli Assigned Sleep Provider 01/01/21 RAOUL Garcia [address] [place] [id number] documented as of this encounter
--- OUTSIDE RECORDS SUMMARY | 2022-02-20 21:12 | XMS_ITS | Encounter Summary ---
:1945 Author Organization [facility] Address [address] [place] [address] Care Team Providers Name Role Phone Yesenia Granger MD Unavailable Eloise Malave MD Primary Care Provider Ayala Lemos APRN [employer] Unavailable Encounter Details Date Type Department Care Team Description 10/07/2020 Travel Social History Tobacco Use Types Packs/Day Years Used Date Smoking Tobacco: Never Smokeless Tobacco: Never Alcohol Use Standard Drinks/Week Comments No 0 (1 standard drink = 0.6 oz pure alcoho l) Sex Assigned at Date Recorded Not on file COVID-19 Exposure Response Date Recorded In the last month, have you been in contact with No / Unsure 10/07/2020 12:54 PM CDT someone who was confirmed or suspected to have Coronavirus / COVID-19? documented as of this encounter Plan of Treatment Upcoming Encounters Date Type Specialty Care Team Description 05/16/2022 Office Visit Cardiology Jorge Luis Akers DO [address] [place] [id number] (Wo rk) documented as of this encounter Visit Diagnoses Not on filedocumented in this encounter Care Teams Hospital Product Specialist Relationship Specialty Start Date End Date Eloise Malave MD PCP - General Family Medicine 10/07/20 [facility] [address] [place], [place] [phone] Yesenia Granger, Assigned Surgical Provider 02/2112/15/21 [address] [facility] [address] [place] [address] Ayala Lemos APRN Assigned Heart and 10/02/20 [employer] Vascular Provider [address] [place] [address] documented as of this encounter
--- OUTSIDE RECORDS SUMMARY | 2022-02-20 21:12 | XMS_ITS | Encounter Summary ---
:1945 Author Organization [facility] Address [address] [place] [address] Care Team Providers Name Role Phone Yesenia Granger MD Unavailable HetEloise hess MD Primary Care Provider Ayala Lemos APRN PRIVATE ADVISOR Unavailable [phone] Tiffanie Lomeli PA-C Unavailable [phone] Encounter Details Date Type Department Care Team Description 05/22/2021 Travel Social History Tobacco Use Types Packs/Day Years Used Date Smoking Tobacco: Never Smokeless Tobacco: Never Alcohol Use Standard Drinks/Week Comments No 0 (1 standard drink = 0.6 oz pure alcoho l) Sex Assigned at Date Recorded Not on file COVID-19 Exposure Response Date Recorded In the last month, have you been in contact with Yes 05/22/2021 1:35 PM NET SORTER someone who was confirmed or suspected to have Coronavirus / COVID-19? documented as of this encounter Plan of Treatment Upcoming Encounters Date Type Specialty Care Team Description 05/16/2022 Office Visit Cardiology Jorge Luis Akers DO [address] [place] [id number] (Wo rk) documented as of this encounter Visit Diagnoses Not on filedocumented in this encounter Care Teams Heavy Equipment Sales Manager Relationship Specialty Start Date End Date Eloise Malave MD PCP - General Family Medicine 10/07/20 [facility] [address] [place] [address] Yesenia Granger, Assigned Surgical Provider 02/2112/15/21 [address] [facility] [address] [place], [place] [address] Ayala Lemos APRN Assigned Heart and 10/02/20 PRIVATE ADVISOR Vascular Provider [address] [address]44[address] Tiffanie Lomeli Assigned Sleep Provider 01/01/21 RAOUL Garcia [address] [place] [address] documented as of this encounter
--- OUTSIDE RECORDS SUMMARY | 2022-02-20 21:12 | XMS_ITS | Encounter Summary ---
:1945 Author Organization [facility] Address [facility] [place] [address] Care Team Providers Name Role Phone Yesenia Granger MD Unavailable HetEloise hess MD Primary Care Provider Ayala Lemos APRN GRAIN FARMWORKER Unavailable [phone] Tiffanie Lomeli PA-C Unavailable [phone] Ivis Akers DO Unavailable [phone] Reason for Visit Reason Onset Date Comments Referral 12/13/2021 Encounter Details Date Type Department Care Team Description 12/13/2021 [facility] Ivis Akers Referral Clinic [place] DO Shira [address] [facility] [address] [place] [address] [place] [address] [phone] Social History Tobacco Use Types Packs/Day Years Used Date Smoking Tobacco: Never Smokeless Tobacco: Never Alcohol Use Standard Drinks/Week Comments No 0 (1 standard drink = 0.6 oz pure alcoho l) Sex Assigned at Date Recorded Not on file documented as of this encounter Miscellaneous Notes Telephone Encounter - Yenny Mack - 12/13/2021 9:07 AM CDT Health Call [facility] Phone Message May a detailed message be left on voicemail: yes Reason for Call: Appointment Intake Referring Provider Name: Dr Crystal Raymundo @ [facility] MedSurg Diagnosis and/or Symptoms: Essential (primary) hypertension [I10] Acute respiratory failure with hypoxia (H) [J96.01] Abnormal electrocardiogram (ECG) (EKG) [R94.31] Heart failure, unspecified (H) [I50.9] Other specified abnormalities of plasma proteins [R77.8] Other pulmonary embolism without acute cor pulmonale (H) [I26.99] Unspecified atrial fibrillation (H) [I48.91] Pt stated Poc[place]as completed an ECHO and found a blood clot- gave her meds. She was having difficulty breathing and oxygen was prescribed. Pt stated she currently doesn't have a portable oxygen tank and she drives. She is wondering if oxygen is necessary or if the episode came on due to her not wearing her CPAP machine the night before. Referral marked 1-2 weeks. Please call with next steps. documented in this encounter Plan of Treatment Upcoming Encounters Date Type Specialty Care Team Description 05/16/2022 Office Visit Cardiology Jorge Luis Akers, [address] [place] [address] (Wo rk) documented as of this encounter Visit Diagnoses Not on filedocumented in this encounter Additional Health Concerns Assessment Noted Time PHQ-9 Depression Total Score: 4 05/29/2021 8:47 AM CLINICAL NURSE documented as of this encounter Care Teams Medical Office Supervisor Relationship Specialty Start Date End Date Eloise Malave MD PCP - General Family Medicine 10/07/20 [facility] [address] [place] [address] Yesenia Granger See Assigned Surgical 03/13/20 2 MD Crow Provider [address] [facility] [address] [place] [address] Ayala Lemos, Assigned Heart and 10/02/20 [facility] Vascular Provider [address] [address] Tiffanie Lomeli Assigned Sleep 01/01/21 RAOUL Garcia Provider [address] [place] [address] Ivis Akers MD Cardiovascular Disease 01/05/22 DO Shira [address] [place] [id number] documented as of this encounter
--- OUTSIDE RECORDS SUMMARY | 2022-02-20 21:12 | XMS_ITS | Encounter Summary ---
:1945 Author Organization [place] Address [address] [place] [address] Care Team Providers Name Role Phone Yesenia Granger MD Unavailable HetEloise hess MD Primary Care Provider Ayala Lemos APRN DIRECTOR PHARMACEUTICAL Unavailable [phone] Tiffanie Lomeli PA-C Unavailable [phone] Reason for Visit Reason Comments Sleep Problem STM Encounter Details Date Type Department Care Team Description 01/30/2021 Documentation Only [facility] [address], [address] [place] [address] Social History Tobacco Use Types Packs/Day Years Used Date Smoking Tobacco: Never Smokeless Tobacco: Never Alcohol Use Standard Drinks/Week Comments No 0 (1 standard drink = 0.6 oz pure alcoho l) Sex Assigned at Date Recorded Not on file documented as of this encounter Progress Notes Jacinta Root - 01/30/2021 11:40 AM CDT 14 DAY STM VISIT Diagnostic AHI: 41.4 PSG Message left for patient to return call Assessment: Pt not meeting objective benchmarks for compliance Action plan: waiting for patient to return call. and pt to have 30 day STM visit. Device type: Auto-CPAP PAP settings: CPAP min 5.0 cm H20 CPAP max 15.0 cm H20 95th% pressure 8.8 cm H20 RESMED EPR level Setting: TWO RESMED Soft response setting: OFF Mask type: Nasal Mask Objective measures: 14 day rolling measures Compliance 14 % Leak 18.36 lpm last upload AHI 8.14 last upload Average number of minutes 107 Objective measure goal Compliance Goal >70% Leak Goal < 24 lpm AHI Goal < 5 Usage Goal >240 Total time spent on accessing and interpreting remote patient PAP therapy data 10 minutes Total time spent counseling, coaching and reviewing PAP therapy data with patient 0 minutes [id number] no (3 day STM) Jacinta Root - 01/30/2021 11:40 AM CDT Patient returned call. Subjective measures: Patient got a different mask last Saturday. She is struggling with the new mask abit. She slept for four hours the first night with the mask. Assessment: Pt not meeting objective benchmarks for compliance Patient failing following subjective benchmarks: mask discomfort Action plan:pt to have 30 day STM visit. Total time spent counseling, coaching and reviewing PAP therapy data with patient 10 minutes [id number] (this call) [id number] no (previous call) documented in this encounter Plan of Treatment Upcoming Encounters Date Type Specialty Care Team Description 05/16/2022 Office Visit Cardiology Jorge Luis Akers DO [address] [place], [place] [address] (Wo rk) documented as of this encounter Visit Diagnoses Not on filedocumented in this encounter Care Teams Paper Core Machine Operator Relationship Specialty Start Date End Date Eloise Malave MD PCP - General Family Medicine 10/07/20 [facility] [address] [place] [address] Yesenia Granger, Assigned Surgical Provider 02/2112/15/21 [address] [facility] [address] [place], [place] [address] Ayala Lemos APRN Assigned Heart and 10/02/20 DIRECTOR PHARMACEUTICAL Vascular Provider [address] [address] Tiffanie Lomeli Assigned Sleep Provider 01/01/21 RAOUL Garcia [address] [place] [address] documented as of this encounter
--- OUTSIDE RECORDS SUMMARY | 2022-02-20 21:12 | XMS_ITS | Encounter Summary ---
:1945 Author Organization [place] Address [address] [place] [address] Care Team Providers Name Role Phone ElkinYesenia francisco Tonny Maira MD Unavailable Eloise Malave MD Primary Care Provider Ayala Lemos APRN ESCALATOR MECHANIC Unavailable [phone] Malina Parra MD Unavailable Encounter Details Date Type Department Care Team Description 12/14/[address] [facility] [place] [address] [place] [address] [address] [address] [place] [id number] [place], [place] [address] (Wo rk) Social History Tobacco Use Types Packs/Day Years Used Date Smoking Tobacco: Never Smokeless Tobacco: Never Alcohol Use Standard Drinks/Week Comments No 0 (1 standard drink = 0.6 oz pure alcoho l) Sex Assigned at Date Recorded Not on file documented as of this encounter Procedure Notes Malina Parra MD - 12/14/2020 11:59 PM CDT Images from the original note were not included. SLEEP STUDY INTERPRETATION DIAGNOSTIC POLYSOMNOGRAPHY REPORT Patient: RACQUEL CHEEMA Date of : 1945 Study Date: 12/14/2020 Referring Provider: MARIELA Lemos Kim Ordering Provider: MD Powers Audrey Indications for Polysomnography: The patient is a 75 year old Female who is 5' 1 and weighs 183.0 lbs. Her BMI is 35.0, Caldwell sleepiness scale - and neck circumference is - cm. Patient reports that in 2019 she underwent gallbladder removal and hernia surgery. Her postoperative course was complicated by a stay in the intensive care unit where she used CPAP overnight due to observed snoring, apneic events, and desaturations. She was not discharged home with PAP therapy and has never had an overnight polysomnogram test to determine presence and severity of sleep disordered breathing. Patient reports that she goes to bed between 11:30 and midnight. She perceives that she sleeps well until about 4:30 AM or 5:30 AM. It is not clear why she wakes up. She tends to linger in bed in case she falls back to sleep. She does not awaken with a headache. No dream enactment behavior, parasomnia, symptoms consistent with a limb movement disorder. Her score on the Caldwell Sleepiness Scale is 6 out of 24. She denies excessive daytime sleepiness but does endorse fatigue. She denies drowsy driving. She is undergoing a medical work-up for progressive shortness of breath. This is not exacerbated by lying down andshe does not perceive an increase in shortness of breath at night. She questions whether she might wake up occasionally with shortness of breath. She notes that she had difficulty tolerating the CPAP when she was hospitalized. Medical history includes hypertension, HFpEF, DVT, DVT and postoperative atrial fibrillation after ventral hernia repair, off anticoagulation due to no recurrence. She notes a 20 pound weight gain overthe past year and bilateral lower extremity edema unresponsive to increase in Lasix. An echocardiogram showed a normal ejection fraction estimated at 65- 70%, mild aortic regurgitation, grade 3 diastolic dysfunction, and normal RV size and function. Blood pressure is well controlled with medication. BMI is elevated at 35 kg/m??. A diagnostic polysomnogram was performed to evaluate for sleep apnea/PLMS /RLS/RBD/S-S/CSA/hypoventilation/hypoxemia. Polysomnogram Data: A full night polysomnogram recorded the standard physiologic parameters including EEG, EOG, EMG, ECG, nasal and oral airflow. Respiratory parameters of chest and abdominal movementswere recorded with respiratory inductance plethysmography. Oxygen saturation was recorded by pulse oximetry. Hypopnea scoring rule used: 1B 4%. Sleep Architecture: Sufficient sleep was captured for interpretation. All sleep stages were observed, including REM/supine sleep. The total recording time of the polysomnogram was 449.5 minutes. The total sleep time was 378.5 minutes. Sleep latency was mildly increased at 33.6 minutes without the use of a sleep aid. REM latency was 167.5 minutes. Arousal index was increased at 62.1 arousals per hour. Sleep efficiency was decreased at 84.2%. Wake after sleep onset was 37.0 minutes. The patient spent 16.0% of total sleep time in Stage N1, 41.3% in Stage N2, 24.6% in Stage N3, and 18.1% in REM. Time in REM supine was 68.5 minutes. Respiration: Severe obstructive sleep apnea was demonstrated (AHI 41.4) and respiratory obstruction was more frequent during REM sleep (REM AHI 67.4). Nocturnal hypoxemia was present and episodic oxyhemoglobin desaturations were more severe during REM sleep. ??? Events ? The polysomnogram revealed a presence of 52 obstructive, 3 central, and 8 mixed apneas resulting in an apnea index of 10.0 events per hour. There were 198 obstructive hypopneas and 0 central hypopneas resulting in an obstructive hypopnea index of 31.4 and central hypopnea index of 0 events per hour. The combined apnea/hypopnea index was 41.4 events per hour (central apnea/hypopnea index was 0.5 events per hour). The REM AHI was 67.4 events per hour. The supine AHI was 40.3 events per hour. The RERA index was 1.9 events per hour. The RDI was 43.3 events per hour. ??? Snoring - was reported as mild. ??? Respiratory rate and pattern - was notable for normal respiratory rate and pattern. ??? Sustained Sleep Associated Hypoventilation - Transcutaneous carbon dioxide monitoring was not used, however significant hypoventilation was not suggested by oximetry. ??? Sleep Associated Hypoxemia - (Greater than 5 minutes O2 sat at or below 88%) was present. Baseline oxygen saturation was 92.4%. Lowest oxygen saturation was 65.0%. Time spent less than or equal to 88% was 19.6 minutes. Time spent less than or equal to 89% was 27.1 minutes. Movement Activity: Periodic limb movements were observed and were noted to cause arousals from sleep. ??? Periodic Limb Activity - There were 425 PLMs during the entire study. The PLM index was 67.4 movements per hour. The PLM Arousal Index was 15.2 per hour. ??? REM EMG Activity - Excessive muscle activity was not present. ??? Nocturnal Behavior - Abnormal sleep related behaviors were not noted. ??? Bruxism - None apparent. Cardiac Summary: Normal sinus rhythm. The average pulse rate was 58.6 bpm. The minimum pulse rate was 49.8 bpm while the maximum pulse rate was 79.2 bpm. Arrhythmias were not noted. Assessment: ??? Severe obstructive sleep apnea was demonstrated (AHI 41.4) and respiratory obstruction was more frequent during REM sleep (REM AHI 67.4). ??? Nocturnal hypoxemia was present and episodic oxyhemoglobin desaturations were more severe duringREM sleep. ??? Periodic limb movements were observed and were noted to cause arousals from sleep. Recommendations: ??? Based on the presence of obstructive sleep apnea, treatment could be empirically initiated with Auto?titrating PAP therapy with a range of 5 to 15 cmH2O. Recommend clinical follow up with sleep management team. ??? Nocturnal hypoxemia is due to the cumulative effect of episodic desaturations following airway obstructions; this is expected to resolve with adequate treatment of sleep apnea. ??? Pharmacologic therapy should be used for management of restless legs syndrome only if present and clinically indicated and not based on the presence of periodic limb movements alone. ??? Advice regarding the risks of drowsy driving. ??? Suggest optimizing sleep schedule and avoiding sleep deprivation. ? ? Weight management (if BMI > 30). Diagnostic Codes: Obstructive Sleep Apnea G47.33 Sleep Hypoxemia/Hypoventilation G47.36 Periodic Limb Movement Disorder G47.61 12/14/2020 [place] [facility] (183.0 lbs) - AHI 41.4, RDI 43.3, Supine AHI 40.3, REM AHI67.4, Low O2 65.0%, Time Spent ?88% 19.6 minutes / Time Spent ?89% 27.1 minutes. Electronically Signed By: Tiffanie Parra MD 12/23/2020 documented in this encounter Plan of Treatment Upcoming Encounters Date Type Specialty Care Team Description 05/16/2022 Office Visit Cardiology Jorge Luis Akers DO [address] [place] [id number] (Wo rk) documented as of this encounter Visit Diagnoses Not on filedocumented in this encounter Care Teams Senior Ui Developer Relationship Specialty Start Date End Date Eloise Malave MD PCP - General Family Medicine 10/07/20 [facility] [address] [place], [place] [phone] Yesenia Granger, Assigned Surgical Provider 02/2112/15/21 [address] [facility] [address] [place], [place] [address] Ayala Lemos APRN Assigned Heart and 10/02/20 ESCALATOR MECHANIC Vascular Provider [address] [id number] Malina Parra, Assigned Sleep Provider 11/27/20 12/31/20 [address] [place], [place] [address] documented as of this encounter
--- OUTSIDE RECORDS SUMMARY | 2022-02-20 21:12 | XMS_ITS | Encounter Summary ---
:1945 Author Organization [place] Address [address] [place] [address] Care Team Providers Name Role Phone Yesenia Granger MD Unavailable Eloise Malave MD Primary Care Provider Ayala Lemos APRN MANAGER SOCIAL Unavailable [phone] Tiffanie Lomeli PA-C Unavailable [phone] Encounter Details Date Type Department Care Team Description 03/10/2021 Documentation Only [facility] [id number] [place] [phone] Social History Tobacco Use Types Packs/Day Years Used Date Smoking Tobacco: Never Smokeless Tobacco: Never Alcohol Use Standard Drinks/Week Comments No 0 (1 standard drink = 0.6 oz pure alcoho l) Sex Assigned at Date Recorded Not on file documented as of this encounter Plan of Treatment Upcoming Encounters Date Type Specialty Care Team Description 05/16/2022 Office Visit Cardiology Jorge Luis Akers DO [address] [address] (Wo rk) documented as of this encounter Visit Diagnoses Not on filedocumented in this encounter Care Teams Hot Car Operator Relationship Specialty Start Date End Date Eloise Malave MD PCP - General Family Medicine 10/07/20 [facility] [address] [place], [place] [phone] Yesenia Granger, Assigned Surgical Provider 02/2112/15/21 [address] [facility] [address] [place] [address] Ayala Lemos APRN Assigned Heart and 10/02/20 MANAGER SOCIAL Vascular Provider [address] [address] Tiffanie Lomeli Assigned Sleep Provider 01/01/21 RAOUL Garcia [address] [place] [address] documented as of this encounter
--- OUTSIDE RECORDS SUMMARY | 2022-02-20 21:12 | XMS_ITS | Encounter Summary ---
:1945 Author Organization [place] Address [facility] [place] [address] Care Team Providers Name Role Phone Yesenia Granger MD Unavailable HettEloise MD Primary Care Provider Ayala Lemos APRN, CNP Unavailable [phone] Tiffanie Lomeli PA-C Unavailable [phone] Reason for Referral Consultation (Routine: Next available opening) - Pending Review Specialty Diagnoses / Procedures Referred By Contact Refer red To Contact Cardiovascular Disease Diagnoses Chronic diastolic congestive heart failure (H) Essential hypertension Ayala Lemos APRN CALENDAR CONTROL CLERK BLOOD BANK [address] [place] [address] Referral ID Status Reason Start Date Expiration Date Visits V isits Requested Authorized [id number] Pending 07/05/2021 07/05/2022 1 1 Review Reason for Visit Reason Comments Follow Up Cardiac clearance for Colpoc leisis Consultation (Routine: Next available opening) - Pending Review Specialty Diagnoses / Procedures Referred By Contact Refer red To Contact Cardiovascular Disease Diagnoses Chronic diastolic congestive heart failure (H) Shortness of breath RAFAEL (obstructive sleep apnea) Essential hypertension Hyperlipidemia LDL goal <100 Ayala Lemos APRN CNP [address] [place] [address] Referral ID Status Reason Start Date Expiration Date Visits V isits Requested Authorized [id number] Pending 05/22/2021 05/22/2022 1 1 Review Encounter Details Date Type Department Care Team Description 07/05/2021 Office Visit [facility] Celsa Lemos astbhavna congestive heart failure (H) (Primary Dx); [facility] MARIELA Cai CNP Essential hypertension; [place] [address] RAFAEL (obstructive sleep apnea ); [address] Hyperlipidemia LDL goal <100 [address] [place] [address] [place], [place] [phone] [address] (Work) [phone] Social History Tobacco Use Types Packs/Day Years Used Date Smoking Tobacco: Never Smokeless Tobacco: Never Alcohol Use Standard Drinks/Week Comments No 0 (1 standard drink = 0.6 oz pure alcoho l) Sex Assigned at Date Recorded Not on file COVID-19 Exposure Response Date Recorded In the last month, have you been in contact with No / Unsure 07/05/2021 2:33 PM CDT someone who was confirmed or suspected to have Coronavirus / COVID-19? documented as of this encounter Last Filed Vital Signs Vital Sign Reading Time Taken Comments Blood Pressure 112/60 07/05/2021 2:45 PM CDT Pulse 61 07/05/2021 2:45 PM CDT Temperature - - Respiratory Rate - - Oxygen Saturation 97% 07/05/2021 2:45 PM CDT Inhaled Oxygen Concentration - - Weight 83.6 kg (184 lb 6.4 oz) 07/05/2021 2:45 PM CDT Height 154.9 cm (5' 1) 07/05/2021 2:45 PM CDT Body Mass Index 34.84 07/05/2021 2:45 PM CDT documented in this encounter Patient Instructions Patient InstructionsChAyala waite APRN CNP - 07/05/2021 3:10 PM CDT Thanks for participating in a office visit with the [facility] today. Scheduled for gynecological procedure on 07/07/2021. Doing well on a cardiac standpoint Echocardiogram 09/2020 was stable. No evidence of heart failure. Blood pressure and heart rhythm are controlled. Ok to proceed with surgical procedure. Follow up in [address] Akers Please call my nurse at [phone] with any questions or concerns. Scheduling phone number: [phone] Reminder: Please bring in all current medications, over the counter supplements and vitamin bottles to your next appointment. documented in this encounter Progress Notes Ayala Lemos APRN CNP - 07/05/2021 3:10 PM CDT Cardiology Clinic Progress Note Racquel Jones Date of : 1945 Age: [age] year old Reason For Visit: Cardiac clearance Primary Head Machine Feeder: Dr. Akers History of Presenting Illness: Racquel Jones is a pleasant 75 year old patient who carries a past medical history significant forhypertension, HFpEF, DVT, RAFAEL on CPAP, postoperative atrial fibrillation after ventral hernia repair, off anticoagulation due to no recurrence. She presents to the office today for cardiac clearance for gynecological procedure ( Colpocleisis) scheduled for 07/07/2021. She is feeling well on a cardiac standpoint with the exception of chronic exertional shortness of breath. She denies chest pain, palpitations, PND, orthopnea, presyncope, or syncope. Upon exam, lungs are clear bilaterally, heart rate and rhythm regular, no neck vein distention, abdominal distention, or lower extremity edema. Leg edema is well controlled on low dose diuretics. Bilateral LE venous US (07/2020) showed bilateral vein competence and no evidence of DVT. Weight is stable at 184 lbs. Last echocardiogram (09/20/2020 ) showed a normal ejection fraction estimated at 65- 70%, mild aortic regurgitation, grade 3 diastolic dysfunction, and normal RV size and function. Blood pressure is well controlled at 112/60 Labs done yesterday as part of her pre op showed a normal BMP and CBC Uses CPAP intermittently Remains compliant with all medications. Assessment and Plan: 1. Heart failure with preserved ejection fraction - chronic exertional shortness of breath, unchanged from baseline. Echocardiogram (09/20/2020 ) showed a normal ejection fraction estimated at 65- 70%, mild aortic regurgitation, grade 3 diastolic dysfunction, and normal RV size and function. Weight stable at 184 pounds. Euvolemic upon exam. Continue lasix and metoprolol. Racquel is stable on a cardiac standpoint. She is a class 2 cardiovascular risk for a low risk surgery. Ok to proceed with surgery asscheduled. 2. Hypertension -well controlled 3. Hyperlipidemia -LDL at goal, on statin 4. Obstructive sleep apnea - Encourage CPAP use 5. Leg edema - Well managed on low dose lasix. Thank you for allowing me to participate in this delightful patient's care. I have recommended she follow up in [address] Akers or sooner if needed. Ayala Lemos APRN CALENDAR CONTROL CLERK BLOOD BANK Review of Systems: Review of Systems: Skin: Negative Eyes: Positive for glasses ENT: Positive for hearing loss Respiratory: Positive for dyspnea on exertion;sleep apnea Cardiovascular: Positive for;chest pain;fatigue;dizziness Gastroenterology: Positive for Genitourinary: Positive for incontinence;urinary frequency;urgency Musculoskeletal: Positive for arthritis;joint pain;back pain;neck pain Neurologic: Positive for headaches Psychiatric: Positive for sleep disturbances Heme/Lymph/Imm: Positive for allergies Endocrine: Negative Physical Exam: GEN: In general, this is a overweight female in no acute distress. HEENT: Pupils equal, round. Sclerae nonicteric. Clear oropharynx. Mucous membranes moist. NECK: Supple, no masses appreciated. Trachea midline. No JVD C/V: Regular rate and rhythm, No murmur, rub or gallop. No S3 or RV heave. RESP: Respirations are unlabored. No use of accessory muscles. Clear to auscultation bilaterally without wheezing, rales, or rhonchi. GI: Abdomen soft, nontender, nondistended. No HSM appreciated. EXTREM: No LE edema. No cyanosis or clubbing. NEURO: Alert and oriented, cooperative. Gait steady. No obvious focal deficits. PSYCH: Normal affect. SKIN: Warm and dry. No rashes or petechiae appreciated. Past Medical History: Past Medical History: Diagnosis Date ??? Hernia, abdominal ??? Hyperlipemia ??? Hypertension ??? Osteoporosis Past Surgical History: Past Surgical History: Procedure Laterality Date ??? CYSTOSCOPY ??? EYE SURGERY ??? HERNIA REPAIR ??? ORTHOPEDIC SURGERY Allergies: Amoxicillin and Sulfa drugs Data: documented in this encounter Plan of Treatment Upcoming Encounters Date Type Specialty Care Team Description 05/16/2022 Office Visit Cardiology Jorge Luis Akers DO [address] [place] [id number] (Wo rk) Scheduled Referrals Name Type Priority Associated Diagnoses Order S chedule Follow-Up with Referral Routine: Next Chronic diastolic Expecte d: Cardiology available opening congestive heart 2021 failure (H) (Approximate), Essential Expires: hypertension 07/05/2022 documented as of this encounter Visit Diagnoses Diagnosis Chronic diastolic congestive heart failu re (H) - Primary Chronic diastolic heart failure Essential hypertension Unspecified essential hypertension RAFAEL (obstructive sleep apnea) Obstructive sleep apnea (adult) (pediatr ic) Hyperlipidemia LDL goal <100 Other and unspecified hyperlipidemia documented in this encounter Additional Health Concerns Assessment Noted Time PHQ-9 Depression Total Score: 4 05/29/2021 8:47 AM DIRECTOR RELIGIOUS EDUCATION documented as of this encounter Care Teams Wash Helper Relationship Specialty Start Date End Date BubbatEloise MD PCP - General Family Medicine 10/07/20 [facility] [address] [place], [place] [phone] Yesenia Granger, Assigned Surgical Provider 02/2112/15/21 420 [facility] [address] [place], [place] [address] Ayala Lemos APRN Assigned Heart and 10/02/20 CALENDAR CONTROL CLERK BLOOD BANK Vascular Provider [address] [address] Tiffanie Lomeli Assigned Sleep Provider 01/01/21 RAOUL Garcia [address] [place] [id number] documented as of this encounter
--- OUTSIDE RECORDS SUMMARY | 2022-02-20 21:12 | XMS_ITS | Encounter Summary ---
:1945 Author Organization [facility] Address [address] [place] [address] Care Team Providers Name Role Phone Yesenia Granger MD Unavailable Eloise Malave MD Primary Care Provider Ayala Lemos APRN MANAGER TESTING Unavailable [phone] Tiffanie Lomeli PA-C Unavailable [phone] Encounter Details Date Type Department Care Team Description 09/14/2021 Travel Social History Tobacco Use Types Packs/Day Years Used Date Smoking Tobacco: Never Smokeless Tobacco: Never Alcohol Use Standard Drinks/Week Comments No 0 (1 standard drink = 0.6 oz pure alcoho l) Sex Assigned at Date Recorded Not on file COVID-19 Exposure Response Date Recorded In the last 10 days, have you been in contact with No / Unsu re 09/14/2021 10:27 AM CDT someone who was confirmed or suspected to have Coronavirus/COVID-19? documented as of this encounter Plan of Treatment Upcoming Encounters Date Type Specialty Care Team Description 05/16/2022 Office Visit Cardiology Jorge Lusi Akers DO [address] [place] [id number] (Wo rk) documented as of this encounter Visit Diagnoses Not on filedocumented in this encounter Additional Health Concerns Assessment Noted Time PHQ-9 Depression Total Score: 4 05/29/2021 8:47 AM COMPUTER TECH documented as of this encounter Care Teams Airset Caster Relationship Specialty Start Date End Date Eloise Malave MD PCP - General Family Medicine 10/07/20 [facility] [address] [place], [place] [phone] Yesenia Granger, Assigned Surgical Provider 02/2112/15/21 [address] [facility] [address] [place] [address] Ayala Lemos APRN Assigned Heart and 10/02/20 MANAGER TESTING Vascular Provider [address] [place] 111[address] Tiffanie Lomeli Assigned Sleep Provider 01/01/21 RAOUL Garcia [address] [place] [id number] documented as of this encounter
--- OUTSIDE RECORDS SUMMARY | 2022-02-20 21:12 | XMS_ITS | Encounter Summary ---
:1945 Author Organization [facility] Address [address] [place] [address] Care Team Providers Name Role Phone Yesenia Granger MD Unavailable Eloise Malave MD Primary Care Provider Ayala Lemos APRN MANAGER OF OPERATIONS Unavailable [phone] Tiffanie Lomeli PA-C Unavailable [phone] Encounter Details Date Type Department Care Team Description 05/15/2021 Travel Social History Tobacco Use Types Packs/Day Years Used Date Smoking Tobacco: Never Smokeless Tobacco: Never Alcohol Use Standard Drinks/Week Comments No 0 (1 standard drink = 0.6 oz pure alcoho l) Sex Assigned at Date Recorded Not on file COVID-19 Exposure Response Date Recorded In the last month, have you been in contact with No / Unsure 05/15/2021 9:44 AM DIETARY INTERNSHIP someone who was confirmed or suspected to have Coronavirus / COVID-19? documented as of this encounter Plan of Treatment Upcoming Encounters Date Type Specialty Care Team Description 05/16/2022 Office Visit Cardiology Jorge Luis Akers DO [address] [place] [id number] (Wo rk) documented as of this encounter Visit Diagnoses Not on filedocumented in this encounter Care Teams Environmental Protection Inspector Relationship Specialty Start Date End Date Eloise Malave MD PCP - General Family Medicine 10/07/20 [facility] [address] [place], [place] [phone] Yesenia Granger, Assigned Surgical Provider 02/2112/15/21 420 [facility] [address] [place], [place] [address] Ayala Lemos APRN Assigned Heart and 10/02/20 MANAGER OF OPERATIONS Vascular Provider [address] [address]107[address] Tiffanie Lomeli Assigned Sleep Provider 01/01/21 RAOUL Garcia [address] [place] [id number] documented as of this encounter
--- OUTSIDE RECORDS SUMMARY | 2022-02-20 21:12 | XMS_ITS | Encounter Summary ---
:1945 Author Organization [facility] Address [address] [place] [address] Care Team Providers Name Role Phone Yesenia Granger MD Unavailable Eloise Malave MD Primary Care Provider Ayala Lemso APRN MANAGER ACQUISITION Unavailable Tiffanie Lomeli PA-C Unavailable [phone] Reason for Visit Reason Comments Sleep Problem STM Encounter Details Date Type Department Care Team Description 02/14/2021 Documentation Only [facility] Sleep Sleep Problem (STM) Center [address], [address] [place] [address] Social History Tobacco Use Types Packs/Day Years Used Date Smoking Tobacco: Never Smokeless Tobacco: Never Alcohol Use Standard Drinks/Week Comments No 0 (1 standard drink = 0.6 oz pure alcoho l) Sex Assigned at Date Recorded Not on file documented as of this encounter Progress Notes Jacinta Root - 02/14/2021 12:40 PM CDT 14 DAY STM VISIT Diagnostic AHI: 41.4 PSG Subjective measures: Patient states that the mask is waking her up in the middle of the night. She states its the uncomfortableness of the machine. She feels she is waking up to too much pressure. Assessment: Pt not meeting objective benchmarks for AHI, leak and compliance Patient failing following subjective benchmarks: pressure issues Action plan: pt to have 30 day STM visit. Changed device to soft response for comfort. Pt to try again tonight and call back if she continues to struggle with pressure settings. Device type: Auto-CPAP PAP settings: CPAP min 5.0 cm H20 CPAP max 15.0 cm H20 95th% pressure 11.6 cm H20 RESMED EPR level Setting: TWO RESMED Soft response setting: OFF Mask type: Nasal Mask Objective measures: 14 day rolling measures Compliance 64 % Leak 40.44 lpm last upload AHI 8.27 last upload Average number of minutes 240 Objective measure goal Compliance Goal >70% Leak Goal < 24 lpm AHI Goal < 5 Usage Goal >240 Total time spent on accessing and interpreting remote patient PAP therapy data 10 minutes Total time spent counseling, coaching and reviewing PAP therapy data with patient 8 minutes [id number] no (3 day STM) documented in this encounter Plan of Treatment Upcoming Encounters Date Type Specialty Care Team Description 05/16/2022 Office Visit Cardiology Jorge Luis Akers DO [address] [place] [id number] (Wo rk) documented as of this encounter Visit Diagnoses Not on filedocumented in this encounter Care Teams Supervisor Cigar Making Machine Relationship Specialty Start Date End Date Eloise Malave MD PCP - General Family Medicine 10/07/[address] [facility] [address] [place], [place] [phone] Yesenia Granger, Assigned Surgical Provider 02/2112/15/21 420 [facility] [address] [place], [place] [address] Ayala Lemos APRN Assigned Heart and 10/02/20 MANAGER ACQUISITION Vascular Provider [address] [address] Tiffanie Lomeli Assigned Sleep Provider 01/01/21 RAOUL Garcia [address] [place] [address] documented as of this encounter
--- OUTSIDE RECORDS SUMMARY | 2022-02-20 21:12 | XMS_ITS | Encounter Summary ---
:1945 Author Organization [facility] Address [address] [place] [address] Care Team Providers Name Role Phone Eloise Malave MD Primary Care Provider Ayala Lemos APRN ROLLER MACHINE OPERATOR Unavailable [phone] Tiffanie Viramontes PA-C Unavailable [phone] Ivis Akers DO Unavailable [phone] Encounter Details Date Type Department Care Team Description 01/05/2022 Travel Social History Tobacco Use Types Packs/Day Years Used Date Smoking Tobacco: Never Smokeless Tobacco: Never Alcohol Use Standard Drinks/Week Comments No 0 (1 standard drink = 0.6 oz pure alcoho l) Sex Assigned at Date Recorded Not on file COVID-19 Exposure Response Date Recorded In the last 10 days, have you been in contact with No / Unsu re 01/05/2022 12:51 PM CDT someone who was confirmed or suspected to have Coronavirus/COVID-19? documented as of this encounter Plan of Treatment Upcoming Encounters Date Type Specialty Care Team Description 05/16/2022 Office Visit Cardiology Jorge Luis Akers DO [address] [facility] [address] [place] [id number] (Wo rk) documented as of this encounter Visit Diagnoses Not on filedocumented in this encounter Additional Health Concerns Assessment Noted Time PHQ-9 Depression Total Score: 4 05/29/2021 8:47 AM MEDICAL SECRETARY documented as of this encounter Care Teams Lockstitcher Relationship Specialty Start Date End Date Eloise Malave MD PCP - General Family Medicine 10/07/20 [facility] [address] [place], [place] [phone] Ayala Lemos, Assigned Heart and 10/02/20 POOL TABLE OPERATOR [facility] Vascular Provider [address] 896205 Tiffanie Lomeli Assigned Sleep 01/01/21 RAOUL Garcia Provider [address] [place] [address] Ivis Akers MD Cardiovascular Disease 01/05/22 DO Shira [address] [place] [address] documented as of this encounter
--- OUTSIDE RECORDS SUMMARY | 2022-02-20 21:12 | XMS_ITS | Encounter Summary ---
:1945 Author Organization [facility] Address [address] [place] [address] Care Team Providers Name Role Phone Yesenia Granger MD Unavailable Eloise Malave MD Primary Care Provider Ayala Lemos APRN COMPUTER ASSISTANT Unavailable [phone] Tiffanie Lomeli PA-C Unavailable [phone] Encounter Details Date Type Department Care Team Description 03/30/2021 Travel Social History Tobacco Use Types Packs/Day Years Used Date Smoking Tobacco: Never Smokeless Tobacco: Never Alcohol Use Standard Drinks/Week Comments No 0 (1 standard drink = 0.6 oz pure alcoho l) Sex Assigned at Date Recorded Not on file COVID-19 Exposure Response Date Recorded In the last month, have you been in contact with No / Unsure 03/30/2021 11:51 AM MOLD INSPECTOR someone who was confirmed or suspected to have Coronavirus / COVID-19? documented as of this encounter Plan of Treatment Upcoming Encounters Date Type Specialty Care Team Description 05/16/2022 Office Visit Cardiology Jorge Luis Akers DO [address] [place] [address]53[address] (Wo rk) documented as of this encounter Visit Diagnoses Not on filedocumented in this encounter Care Teams Refrigeration Service Technician Relationship Specialty Start Date End Date Eloise Malave MD PCP - General Family Medicine 10/07/20 [facility] [address] [place], [place] [phone] Yesenia Granger, Assigned Surgical Provider 02/2112/15/21 420 [facility] [address] [place], [place] [address] Ayala Lemos APRN Assigned Heart and 10/02/20 COMPUTER ASSISTANT Vascular Provider [address] 514585 Tiffanie Lomeli Assigned Sleep Provider 01/01/21 RAOUL Garcia [address] [place] [address] documented as of this encounter
--- OUTSIDE RECORDS SUMMARY | 2022-02-20 21:12 | XMS_ITS | Encounter Summary ---
:1945 Author Organization [facility] Address [address] [place] [address] Care Team Providers Name Role Phone Yesenia Granger MD Unavailable Eloise Malave MD Primary Care Provider Ayala Lemos APRN DRAWBENCH OPERATOR HELPER Unavailable [phone] Tiffanie Lomeli PA-C Unavailable [phone] Encounter Details Date Type Department Care Team Description 08/16/2021 Travel Social History Tobacco Use Types Packs/Day Years Used Date Smoking Tobacco: Never Smokeless Tobacco: Never Alcohol Use Standard Drinks/Week Comments No 0 (1 standard drink = 0.6 oz pure alcoho l) Sex Assigned at Date Recorded Not on file COVID-19 Exposure Response Date Recorded In the last 10 days, have you been in contact with No / Unsu re 08/16/2021 12:16 PM CDT someone who was confirmed or suspected to have Coronavirus/COVID-19? documented as of this encounter Plan of Treatment Upcoming Encounters Date Type Specialty Care Team Description 05/16/2022 Office Visit Cardiology Jorge Luis Akers DO [address] [place] [id number] (Wo rk) documented as of this encounter Visit Diagnoses Not on filedocumented in this encounter Additional Health Concerns Assessment Noted Time PHQ-9 Depression Total Score: 4 05/29/2021 8:47 AM FORWARDER OPERATOR documented as of this encounter Care Teams Landscaping Manager Relationship Specialty Start Date End Date Eloise Malave MD PCP - General Family Medicine 10/07/20 [facility] [address] [place], [place] [phone] Yesenia Granger, Assigned Surgical Provider 02/2112/15/21 420 [facility] [address] [place] [address] Ayala Lemos APRN Assigned Heart and 10/02/20 DRAWBENCH OPERATOR HELPER Vascular Provider [address] [place] [address] Tiffanie Lomeli Assigned Sleep Provider 01/01/21 RAOUL Garcia [address] [place] [id number] documented as of this encounter
--- OUTSIDE RECORDS SUMMARY | 2022-02-20 21:12 | XMS_ITS | Encounter Summary ---
:1945 Author Organization [facility] Address [address] [place] [address] Care Team Providers Name Role Phone Yesenia Granger MD Unavailable Eloise Malave MD Primary Care Provider Ayala Lemos APRN VISUAL EDUCATION DIRECTOR Unavailable [phone] Tiffanie Lomeli PA-C Unavailable [phone] Reason for Visit Reason Comments Sleep Problem MASK CLARIFICATION Encounter Details Date Type Department Care Team Description 01/27/2021 [facility] Only [facility] Grisel Rosenberg Obstructive sleep Medical apnea (adult) (pediatric) (Pr imary Dx) Social History Tobacco Use Types Packs/Day Years [...] Visit Cardiology Jorge Luis Akers DO [address] [facility] [address] [place] [address] (Wo rk) documented as of this encounter Visit Diagnoses Diagnosis Obstructive sleep apnea (adult) (pediatr ic) - Primary documented in this encounter Care Teams Medical Laboratory Technicians Relationship Specialty Start Date End Date Eloise Malave MD PCP - General Family Medicine 10/07/20 [facility] [address] [place] [address] Yesenia Granger, Assigned Surgical Provider 02/2112/15/21 420 [facility] [address] [place] [address] Ayala Lemos APRN Assigned Heart and 10/02/20 VISUAL EDUCATION DIRECTOR Vascular Provider [address] [address] Tiffanie Lomeli Assigned Sleep Provider 01/01/21 RAOUL Garcia [address] [place] [address] documented as of this encounter
--- OUTSIDE RECORDS SUMMARY | 2022-02-20 21:12 | XMS_ITS | Encounter Summary ---
:1945 Author Organization [facility] Address [address] [place] [address] Care Team Providers Name Role Phone Yesenia Granger MD Unavailable Eloise Malave MD Primary Care Provider Ayala Lemos APRN TOUR MANAGER Unavailable [phone] Malina Parra MD Unavailable Reason for Visit Reason Comments Consult (Routine) - Closed Specialty Diagnoses / Procedures Referred By Contact Refer red To Contact Diagnoses RAFAEL (obstructive sleep apnea) Ayala Lemos APRN TOUR MANAGER [address] [address] Referral ID Status Reason Start Date Expiration Date Visits Requ ested Visits Authorized [id number] Closed 10/07/2020 10/07/2021 1 1 Encounter Details Date Type Department Care Team Description 11/22/2020 Virtual Visit [facility] Martha Lemos, SPIRAL RUNNER TOUR MANAGER [address] [address] Snoring (Primary Dx); [place] [address] [address] [address] Paroxysmal atrial fibrillation (H); [place] Essential hypertension; [address] Obesity with body mass index 30 or greater [address] [place] [address] Social History Tobacco Use Types Packs/Day Years Used Date Smoking Tobacco: Never Smokeless Tobacco: Never Alcohol Use Standard Drinks/Week Comments No 0 (1 standard drink = 0.6 oz pure alcoho l) Sex Assigned at Date Recorded Not on file documented as of this encounter Patient Instructions Patient InstructionsAlfie Carranza, MARTA - 11/22/2020 11:00 AM CDT Your BMI is There is no height or weight on file to calculate BMI. Weight management is a personal decision. If you are interested in exploring weight loss strategies,the following discussion covers the approaches that may be successful. Body mass index (BMI) is one way to tell whether you are at a healthy weight, overweight, or obese. It measures your weight in relation to your height. A BMI of 18.5 to 24.9 is in the healthy range. A person with a BMI of 25 to 29.9 is considered overweight, and someone with a BMI of 30 or greater is considered obese. More than two-thirds of [place] adults are considered overweight or obese. Being overweight or obese increases the risk for further weight gain. Excess weight may lead to heart disease and diabetes. Creating and following plans for healthy eating and physical activity may help you improve your health. Weight control is part of healthy lifestyle and includes exercise, emotional health, and healthy eating habits. Careful eating habits lifelong are the mainstay of weight control. Though there are significant health benefits from weight loss, long-term weight loss with diet alone may be very difficult to achieve- studies show long-term success with dietary management in less than 10% of people. Attaining a healthy weight may be especially difficult to achieve in those with severe obesity. In some cases, medications, devices and surgical management might be considered. What can you do? If you are overweight or obese and are interested in methods for weight loss, you should discuss this with your provider. ??? Consider reducing daily calorie intake by 500 calories. ??? Keep a food journal. ??? Avoiding skipping meals, consider cutting portions instead. Diet combined with exercise helps maintain muscle while optimizing fat loss. Strength training is particularly important for building and maintaining muscle mass. Exercise helps reduce stress, increaseenergy, and improves fitness. Increasing exercise without diet control, however, may not burn enoughcalories to loose weight. ??? Start walking three days a week 10-20 minutes at a time ??? Work towards walking thirty minutes five days a week ??? Eventually, increase the speed of your walking for 1-2 minutes at time In addition, we recommend that you review healthy lifestyles and methods for weight loss available through the National Institutes of Health patient information sites: http://win.niddk.nih.gov/publications/index.htm And look into health and wellness programs that may be available through your health insurance provider, employer, local community center, or conner club. Weight management plan: Patient was referred to their PCP to discuss a diet and exercise plan. documented in this encounter Progress Notes Malina Parra MD - 11/22/2020 11:00 AM CDT Racquel Jones is a 75 year old female being evaluated via a billable telephone visit. This telephone visit will be conducted via a call between you and your physician/provider. We have found that certain health care needs can be provided without the need for an in-person visit or physical exam. This service lets us provide the care you need with a telephone conversation. If a prescription is necessary we can send it directly to your pharmacy. If lab work is needed we can place an order for that and you can then stop by our lab to have the test done at a later time. Telephone visits are billed at different rates depending on your insurance coverage. Please reach out to your insurance provider with any questions. Patient has given verbal consent for a Telephone visit? Yes What telephone number would you like your provider to contact at at: [phone] How would you like to obtain your AVS? Mail a copy Alfie Carranza MA Telephone Visit Details: Telephone Visit Start Time: 11:05 AM Telephone Visit End Time:11:48 AM [facility] Outpatient Sleep Medicine Consultation, New Patient Name: Racquel Jones Age: [age] year old Date of : 1945 Date of Consultation: November 22, 2020 Consultation is requested by: Ayala Lemos APRN TOUR MANAGER [address] [address] Primary care provider: Eloise Malave Assessment and Plan: 1. Snoring I recommended that she be evaluated for sleep disordered breathing. I presented an attended polysomnogram study as the preferred testing option. However, patient has some degree of resistance to being in the sleep lab overnight. Discussed the pros and cons of a home sleep apnea test with her. Patient would like to think it over and call back with her decision about whether to proceed or not. Risk factors for RAFAEL include: snoring, witnessed apneas, high blood pressure, obesity, age > 50 (STOP BANGscore = 4). If she proceeds with a sleep study she will follow up after it is completed to review the results and discuss plan of care. 2. Essential hypertension RAFAEL is an independent risk factor for hypertension; risk for hypertension is related to severity of sleep apnea and episodic nocturnal hypoxemia. Untreated RAFAEL can cause loss of blood pressure dipping during nighttime sleep. PAP therapy can improve blood pressure control in individuals with co-existing RAFAEL and hypertension. 3. Obesity with body mass index 30 or greater Patients with obesity are at higher risk for sleep apnea due to fat deposition in the posterior airway and tongue. Sleep disruption associated with untreated sleep disorders (including, but not limitedto, sleep apnea) can cause hormonal disruption that predisposes individuals to gain weight. Weight loss can lead to improvement in sleep apnea severity and sleep quality. Nocturnal hypoventilation may be a consideration in some individuals with obesity. History: Racquel Jones is a 75 year old female whose visit was conducted via telephone today. Patient reports that in 2019 she underwent gallbladder removal and hernia surgery. Her postoperative course was complicated by a stay in the intensive care unit where she used CPAP overnight due to observed snoring,apneic events, and desaturations. She was not discharged home with Pap therapy and has never had an overnight [...] limb movement disorder. Her score on the [place] Sleepiness Scale is 6 out of 24. She denies excessive daytime sleepiness but does endorse fatigue. She denies drowsy driving. She is undergoing a medical work-up for progressive shortness of breath. This is not exacerbated by lying down and she does not perceive an increase in shortness [...] medication. BMI is elevated at 35 kg/m??. Medications: Current Outpatient Medications Medication Sig ??? aspirin 81 MG EC tablet Take 162 mg by mouth daily ??? cholecalciferol (VITAMIN D-[address]) 25 MCG (1000 UT) TABS Take 1,000 Units by mouth daily ??? escitalopram (LEXAPRO) 10 MG tablet Take 15 mg by mouth ??? famotidine (PEPCID) 20 MG tablet Take 20 mg by mouth 2 times daily ??? furosemide (LASIX) 20 MG tablet Take 1 tablet (20 mg) by mouth daily ??? metoprolol succinate ER (TOPROL-XL) 50 MG 24 hr tablet Take 50 mg by mouth daily ??? omega 3 1000 MG CAPS Take 1 g by mouth ??? potassium chloride SA (K-DUR/KLOR-CON M) 20 MEQ CR tablet Take 10 mEq by mouth ??? simvastatin (ZOCOR) 40 MG tablet Take 40 mg by mouth daily No current facility-administered medications for this visit. Allergies Allergen Reactions ??? Amoxicillin Nausea ??? Sulfa Drugs Past Medical History: Past Medical History: Diagnosis Date ??? Hernia, abdominal ??? Hyperlipemia ??? Hypertension ??? Osteoporosis Past Surgical History: Past Surgical History: Procedure Laterality Date ??? CYSTOSCOPY ??? EYE SURGERY ??? HERNIA REPAIR ??? ORTHOPEDIC SURGERY Physical Examination: There were no vitals taken for this visit. Data: All pertinent previous laboratory data reviewed No results found for: PH, PHARTERIAL, PO2, HA3LPARHPBK, SAT, PCO2, HCO3, BASEEXCESS, ELDER, BEB No results found for: TSH Lab Results Component Value Date GLC 85 09/20/2020 GLC 119 (H) 07/25/2016 Lab Results Component Value Date HGB 13.8 07/25/2016 Lab Results Component Value Date BUN 16 09/20/2020 BUN 17 07/25/2016 CR 0.69 09/20/2020 CR 0.75 07/25/2016 No results found for: AST, ALT, GGT, ALKPHOS, BILITOTAL, BILICONJ, BILIDIRECT, NINA No results found for: UAMP, UBARB, BENZODIAZEUR, UCANN, UCOC, OPIT, UPCP This note has been dictated using voice recognition software. Any grammatical, typographical, or context distortions are unintentional and inherent to the software. Malina Parra MD 11/22/[address], [address] [place] [address] Copy to: Eloise Malave documented in this encounter Plan of Treatment Upcoming Encounters Date Type Specialty Care Team Description 05/16/2022 Office Visit Cardiology Jorge Luis Akers DO [address] [place], [place] [id number] (Wo rk) documented as of this encounter Visit Diagnoses Diagnosis Snoring - Primary Other dyspnea and respiratory abnormalit y Paroxysmal atrial fibrillation (H) Atrial fibrillation Essential hypertension Unspecified essential hypertension Obesity with body mass index 30 or great er documented in this encounter Care Teams Assistant Manager Relationship Specialty Start Date End Date Eloise Malave MD PCP - General Family Medicine 10/07/20 [facility] [address] [place], [place] [id number] Yesenia Granger, Assigned Surgical Provider 02/2112/15/21 [address] [facility] [address] [place] [address] Ayala Lemos APRN Assigned Heart and 10/02/20 TOUR MANAGER Vascular Provider [address] [address] Malina Parra, Assigned Sleep Provider 11/27/20 12/31/[address] [id number] documented as of this encounter
--- OUTSIDE RECORDS SUMMARY | 2022-02-20 21:12 | XMS_ITS | Encounter Summary ---
:1945 Author Organization [facility] Address [facility] [place] [address] Care Team Providers Name Role Phone Yesenia Granger MD Unavailable Eloise Malave MD Primary Care Provider Ayala Lemos APRN AUTOMATIC PAD MAKING MACHINE OPERATOR Unavailable [phone] Tiffanie Lomeli PA-C Unavailable [phone] Encounter Details Date Type Department Care Team Description 07/05/2021 Travel Social History Tobacco Use Types Packs/Day [...] Visit Cardiology Jorge Luis Akers DO [address] [facility] [address] [place] [id number] (Wo rk) documented as of this encounter Visit Diagnoses Not on filedocumented in this encounter Additional Health Concerns Assessment Noted Time PHQ-9 Depression Total Score: 4 05/29/2021 8:47 AM SURGICAL ORDERLY documented as of this encounter Care Teams Labor Economics Teacher Relationship Specialty Start Date End Date Eloise Malave MD PCP - General Family Medicine 10/07/20 [facility] [address] [place], [place] [id number] Yesenia Granger, Assigned Surgical Provider 02/2112/15/21 [address] [facility] [address] [place] [address] Ayala Lemos APRN Assigned Heart and 10/02/20 AUTOMATIC PAD MAKING MACHINE OPERATOR Vascular Provider [address] [id number] Tiffanie Lomeli Assigned Sleep Provider 01/01/21 RAOUL Garcia [address] [id number] documented as of this encounter
--- OUTSIDE RECORDS SUMMARY | 2022-02-20 21:12 | XMS_ITS | Encounter Summary ---
:1945 Author Organization [facility] Address [address] [place] [address] Care Team Providers Name Role Phone Yesenia Granger MD Unavailable Eloise Malave MD Primary Care Provider Ayala Lemos APRN SURVEYING TEACHER Unavailable [phone] Tiffanie Lomeli PA-C Unavailable [phone] Reason for Visit Reason Comments Sleep Problem Encounter Details Date Type Department Care Team Description 03/08/2021 Documentation Only [facility] [address], [address] [place] [address] Social History Tobacco Use Types Packs/Day Years Used Date Smoking Tobacco: Never Smokeless Tobacco: Never Alcohol Use Standard Drinks/Week Comments No 0 (1 standard drink = 0.6 oz pure alcoho l) Sex Assigned at Date Recorded Not on file documented as of this encounter Progress Notes Jennifer Witt - 03/08/2021 11:47 AM CST Called and spoke with patient regarding CPAP compliance. Her insurance requires her to be at 70% usage. She is currently at 47%. She has several days where she is not using the device at all or not using it 4 hours or more. She seems to be having issues with the mask. I suggested she come in for a mask consult. We have one scheduled for 03/10/2021. EAR DESIGN ENGINEER documented in this encounter Plan of Treatment Upcoming Encounters Date Type Specialty Care Team Description 05/16/2022 Office Visit Cardiology Jorge Luis Akers DO [address] [place] [id number] (Wo rk) documented as of this encounter Visit Diagnoses Not on filedocumented in this encounter Care Teams Electrical Unit Rebuilder Relationship Specialty Start Date End Date Eloise Malave MD PCP - General Family Medicine 10/07/20 [facility] [address] [place], [place] [phone] Yesenia Granger, Assigned Surgical Provider 02/2112/15/21 [address] [facility] [address] [place] [address] Ayala Lemos APRN Assigned Heart and 10/02/20 SURVEYING TEACHER Vascular Provider [address] [address] Tiffanie Lomeli Assigned Sleep Provider 01/01/21 RAOUL Garcia [address] [id number] documented as of this encounter
--- OUTSIDE RECORDS SUMMARY | 2022-02-20 21:12 | XMS_ITS | Encounter Summary ---
:1945 Author Organization [place] Address [facility] [place] [address] Care Team Providers Name Role Phone Yesenia Granger MD Unavailable HettEloise MD Primary Care Provider Ayala Lemos APRN CLOUD SYSTEMS ADMINISTRATOR Unavailable [phone] Tiffanie Lomeli PA-C Unavailable [phone] Reason for Visit Reason Comments Follow Up 1 month follow up Consultation (Routine: Next available opening) - Pending Review Specialty Diagnoses / Procedures Referred By Contact Refer red To Contact Cardiovascular Disease Diagnoses Chronic diastolic congestive heart failure (H) Essential hypertension Ayala Lemos APRN CLOUD SYSTEMS ADMINISTRATOR [address] [address] Referral ID Status Reason Start Date Expiration Date Visits V isits Requested Authorized [id number] Pending 07/05/2021 07/05/2022 1 1 Review Encounter Details Date Type Department Care Team Description 09/14/2021 Office Visit [facility] Martha Lemos APRN CLOUD SYSTEMS ADMINISTRATOR [address] [address] Chronic diastolic congestive heart failu re (H); [facility] Clinic Ivis Akers DO [address] [place] [address] Essential hypertension [place] [address] [address] Social History Tobacco Use Types Packs/Day Years [...] have Coronavirus/COVID-19? documented as of this encounter Last Filed Vital Signs Vital Sign Reading Time Taken Comments Blood Pressure 130/64 09/14/2021 10:49 AM CDT Pulse 61 09/14/2021 10:49 AM CDT Temperature - - Respiratory Rate - - Oxygen Saturation - - Inhaled Oxygen Concentration - - Weight 83.5 kg (184 lb) 09/14/2021 10:49 AM CDT Height 165.1 cm (5' 5) 09/14/2021 10:49 AM CDT Body Mass Index 30.62 09/14/2021 10:49 AM CDT documented in this encounter Progress Notes Ivis Akers, - 09/14/2021 11:22 AM CDT Service Date: 09/14/2021 REFERRING PROVIDER: Dr. Eloise Malave. HISTORY OF PRESENT ILLNESS: Ms. Cheema is a pleasant 75-year-old female with a history of remote paroxysmal atrial fibrillation, heart failure with preserved ejection fraction, hypertension, sleep apnea, and obesity. She is here for a follow-up visit. She had a gynecological procedure in June that apparently did not go well. She had an endometrial biopsy. It sounds like she may end up needing futureprocedures as well. She has not had any complications from the procedure. She did well and she has not experienced any change in her breathing. She does get out of breath with minimal or light activitysuch as walking from the waiting room to the clinic visit. She denies difficulty with breathing at [facility]. She is compliant with her CPAP machine, although it did break down and she did not use it last night. She does not feel palpitations. She occasionally has neck pain or substernal chest pain. It is not consistent or related to exercise. She has had several ventral hernia repairs that have caused GI issues for her, which she relates. She is unstable on her feet and uses a cane. She is currently on 162 mg of aspirin and is not having any bleeding complications with this. PHYSICAL EXAM: VITAL SIGNS: Her blood pressure is 130/64, pulse of 61, weight is 184 and a body mass index of 30. CARDIOVASCULAR: Tones today were regular, suggesting a normal sinus rhythm. LUNGS: Lung cedeño were diminished, but otherwise clear. She has trace peripheral edema. ASSESSMENT/PLAN: In summary, Ms. Cheema is a pleasant 75-year-old female with a history of remote paroxysmal atrial fibrillation. This was postoperatively. She was put on Eliquis for several months, but then this was discontinued as she had no evidence of recurrence. I have kept her on 162 mg of baby aspirin because she is high risk for recurrence, given medical history of high blood pressure, sleep apnea and her age. I have asked her to pay attention and monitor her heartbeat for evidence of erratic or fast heart rhythms. She does appear compensated on exam today. We will also continue her metoprolol and I would recommend to continue her Lasix at low dose right now. I will be happy to see her back annually or as needed. Please feel free to contact me with any questions you have in regards to her care. cc: Eloise Malave MD [facility] [id number] [place] [address] Ivis Akers DO MT: al Name: RACQUEL CHEEMA MRN: [id number] Account: [id number] : 1945 Service Date: 09/14/2021 Document: [id number] Ivis Akers DO - 09/14/2021 10:45 AM CDT HPI and Plan: See dictation No orders of the defined types were placed in this encounter. No orders of the defined types were placed in this encounter. There are no discontinued medications. Encounter Diagnoses Name Primary? Chronic diastolic congestive heart failure (H) ??? Essential hypertension CURRENT MEDICATIONS: Current Outpatient Medications Medication Sig Dispense Refill ??? aspirin 81 MG EC tablet Take 81 mg by mouth 2 times daily ??? cholecalciferol (VITAMIN D-[address]) 25 MCG (1000 UT) TABS Take 1,000 Units by mouth daily ??? escitalopram (LEXAPRO) 10 MG tablet Take 15 mg by mouth ??? famotidine (PEPCID) 20 MG tablet Take 20 mg by mouth 2 times daily ??? furosemide (LASIX) 20 MG tablet Take 1 tablet (20 mg) by mouth daily 30 tablet 11 ??? metoprolol succinate ER (TOPROL-XL) 50 MG 24 hr tablet Take 50 mg by mouth daily ??? omega 3 1000 MG CAPS Take 1 g by mouth daily ??? potassium chloride ER (MICRO-K) 10 MEQ CR capsule Take 10 mEq by mouth daily ??? simvastatin (ZOCOR) 40 MG tablet Take 40 mg by mouth daily ??? fluticasone (FLONASE) 50 MCG/ACT nasal spray [place] 1 spray into both nostrils daily (Patient nottaking: Reported on 09/14/2021) 9.9 mL 1 ALLERGIES Allergies Allergen Reactions ??? Amoxicillin Nausea ??? Sulfa Drugs PAST MEDICAL HISTORY: Past Medical History: Diagnosis Date ??? Hernia, abdominal ??? Hyperlipemia ??? Hypertension ??? Osteoporosis PAST SURGICAL HISTORY: Past Surgical History: Procedure Laterality Date ??? CYSTOSCOPY ??? EYE SURGERY ??? HERNIA REPAIR ??? ORTHOPEDIC SURGERY FAMILY HISTORY: Family History Problem Relation Age of Onset ??? Cancer Mother ??? Cancer Father ??? Diabetes Father ??? Diabetes Brother SOCIAL HISTORY: Social History Socioeconomic History ??? Marital status: Spouse name: None ??? Number of children: None ??? Years of education: None ??? Highest education level: None Tobacco Use ??? Smoking status: Never Smoker ??? Smokeless tobacco: Never Used Substance and Sexual Activity ??? Alcohol use: No ??? Drug use: No Review of Systems: Skin: Negative Eyes: ENT: Positive for hearing loss Respiratory: Positive for dyspnea on exertion;sleep apnea;CPAP Cardiovascular: Positive for chest pain occ Gastroenterology: Negative Genitourinary: not assessed Musculoskeletal: Positive for back pain;neck pain Neurologic: Positive for numbness or tingling of hands;headaches Psychiatric: Negative Heme/Lymph/Imm: Negative Endocrine: Negative Physical Exam: Vitals: BP 130/64 Pulse 61 Ht 1.651 m (5' 5) Wt 83.5 kg (184 lb) BMI 30.62 kg/m?? Constitutional: cooperative;in no acute distress Skin: warm and dry to the touch Head: normocephalic Eyes: pupils equal and round Lymph: ENT: no pallor or cyanosis Neck: no carotid bruit Respiratory: clear to auscultation;normal symmetry diminished bS Cardiac: regular rhythm;no murmurs, gallops or rubs detected pulses below the femoral arteries are diminished GI: abdomen soft obese Extremities and Muscular Skeletal: no edema varicose veins Neurological: no gross motor deficits;affect appropriate hand tremor Psych: Alert and Oriented x 3 Anxious CC Ayala Lemos APRN CLOUD SYSTEMS ADMINISTRATOR [address] [address] documented in this encounter Plan of Treatment Upcoming Encounters Date Type Specialty Care Team Description 05/16/2022 Office Visit Cardiology Jorge Luis Akers DO [address] [place] [address] (Wo rk) documented as of this encounter Visit Diagnoses Diagnosis Chronic diastolic congestive heart failu re (H) Chronic diastolic heart failure Essential hypertension Unspecified essential hypertension documented in this encounter Additional Health Concerns Assessment Noted Time PHQ-9 Depression Total Score: 4 05/29/2021 8:47 AM HAND FINISHER documented as of this encounter Care Teams Washing Machine Installer Relationship Specialty Start Date End Date BubbatEloise MD PCP - General Family Medicine 10/07/20 [facility] [address] [place], [place] [phone] Yesenia Granger, Assigned Surgical Provider 02/2112/15/21 [address] [facility] [address] [place], [place] [address] Ayala Lemos APRN Assigned Heart and 10/02/20 CLOUD SYSTEMS ADMINISTRATOR Vascular Provider [address] [id number] Tiffanie Lomeli Assigned Sleep Provider 01/01/21 RAOUL Garcia [address] [place] [id number] documented as of this encounter
--- OUTSIDE RECORDS SUMMARY | 2022-02-20 21:12 | XMS_ITS | Encounter Summary ---
:1945 Author Organization [place] Address [address] [place] [address] Care Team Providers Name Role Phone Yesenia Granger MD Unavailable HettEloise MD Primary Care Provider Ayala Lemos APRN PATTERNMAKER WOOD Unavailable [phone] Tiffanie Lomeli PA-C Unavailable [phone] Reason for Referral CV Cardio consult (Priority: 1-2 Weeks) - Pending Review Specialty Diagnoses / Procedures Referred By Referred To Contact Contact Cardiovascular Disease Diagnoses Essential (primary) hypertension Acute respiratory failure with hypoxia (H) Abnormal electrocardiogram (ECG) (EKG) Heart failure, unspecified (H) Other specified abnormalities of plasma proteins System, Provider Other pulmonary embolism wit hout acute cor pulmonale (H) Unspecified atrial fibrillation (H) Not In Referral ID Status Reason Start Date Expiration Date Visits V isits Requested Authorized [id number] Pending 12/12/2021 12/12/2022 1 1 Review Encounter Details Date Type Department Care Team Description 12/12/2021 Transcribe Orders GENERIC EXTERNAL ProviderPiero (primary) hypertension (Primary Dx); DATA DEPARTMENT Generic Acute respir atory failure with hypoxia (H); External Data Abnormal elect rocardiogram (ECG) (EKG); Heart failure, unspecified (H); Other specified abnormalities of plasma proteins; Other pulmonary embolism without acute cor pulmonale (H); Unspecified atr ial fibrillation (H) Social History Tobacco Use Types Packs/Day Years Used Date Smoking Tobacco: Never Smokeless Tobacco: Never Alcohol Use Standard Drinks/Week Comments No 0 (1 standard drink = 0.6 oz pure alcoho l) Sex Assigned at Date Recorded Not on file documented as of this encounter Plan of Treatment Upcoming Encounters Date Type Specialty Care Team Description 05/16/2022 Office Visit Cardiology Jorge Luis Akers DO [address] [place] [id number] (Wo rk) Scheduled Referrals Name Type Priority Associated Diagnoses Order S [facility] Adult Cardiology Referral Priority: 1-2 Essential (primary) Ord ered: Eval High School Music Director Weeks hypertension 12/12/2021 Referral Acute respiratory failure with hypoxia (H) Abnormal electrocardiogram (ECG) (EKG) Heart failure, unspecified (H) Other specified abnormalities of plasma proteins Other pulmonary embolism without acute cor pulmonale (H) Unspecified atrial fibrillation (H) documented as of this encounter Visit Diagnoses Diagnosis Essential (primary) hypertension - Prima ry Unspecified essential hypertension Acute respiratory failure with hypoxia ( H) Acute respiratory failure Abnormal electrocardiogram (ECG) (EKG) Heart failure, unspecified (H) Heart failure, unspecified Other specified abnormalities of plasma proteins Other pulmonary embolism without acute c or pulmonale (H) Unspecified atrial fibrillation (H) documented in this encounter Additional Health Concerns Assessment Noted Time PHQ-9 Depression Total Score: 4 05/29/2021 8:47 AM ASSOCIATE PROFESSOR OF LAW documented as of this encounter Care Teams Sport Internship Relationship Specialty Start Date End Date Eloise Malave MD PCP - General Family Medicine 10/07/20 [facility] [id number] [place] [address] Yesenia Granger, Assigned Surgical Provider 02/2112/15/21 420 [facility] [address] [place], [place] [address] Ayala Lemos APRN Assigned Heart and 10/02/20 PATTERNMAKER WOOD Vascular Provider [address] [place] [address] Tiffanie Lomeli Assigned Sleep Provider 01/01/21 RAOUL Garcia [address] [facility] [address] [address] documented as of this encounter
--- OUTSIDE RECORDS SUMMARY | 2022-02-20 21:12 | XMS_ITS | Encounter Summary ---
:1945 Author Organization [place] Address [address] [place] [address] Care Team Providers Name Role Phone Yesenia Granger MD Unavailable HetEloise hess MD Primary Care Provider Ayala Lemos APRN CORPORATE DEVELOPMENT INTERN Unavailable [phone] Malina Parra MD Unavailable Tiffanie Lomeli PA-C Unavailable [phone] Ivis Akers DO Unavailable [phone] Reason for Visit Reason Onset Date Comments Appointment 12/08/[address] udy order Encounter Details Date Type Department Care Team Description 12/08/2020 Telephone [facility] Malina Parra Appoint ent (Request Sleep Center MD Gio for sleep study order) [address] [place] [address] 5 [address]337 [id number] [phone] Social History Tobacco Use Types Packs/Day Years Used Date Smoking Tobacco: Never Smokeless Tobacco: Never Alcohol Use Standard Drinks/Week Comments No 0 (1 standard drink = 0.6 oz pure alcoho l) Sex Assigned at Date Recorded Not on file documented as of this encounter Miscellaneous Notes Telephone Encounter - Lizbeth Bach, AUDIO VIDEO REPAIRER - 12/13/2020 2:34 PM CDT Racquel has been scheduled 12/14/20 for in lab sleep study at () Follow up for test results scheduled with Tiffanie Lomeli. Sleep study packet has been emailed to . Paula Bedolla CMA, SLEEP MEDICINE, 12/13/2020 2:35 PM Telephone Encounter - Arya Harshad - 12/08/2020 1:44 PM CDT Reason for call: Other Patient called regarding (reason for call): call back Additional comments: Patient is calling back to check in with Dr Powers to inform her that after consulting with her pcp she is okay with proceeding with scheduling an overnight study in clinic. She is requesting a callback to schedule when possible. Phone number to reach patient: Cell number on file: Telephone Information: Best Time: any Can we leave a detailed message on this number? YES Travel screening: Negative documented in this encounter Plan of Treatment Upcoming Encounters Date Type Specialty Care Team Description 05/16/2022 Office Visit Cardiology Jorge Luis kAers, [address] [place], [place] [address] (Wo rk) documented as of this encounter Visit Diagnoses Not on filedocumented in this encounter Care Teams Printer Slotter Operator Relationship Specialty Start Date End Date Eloise Malave MD PCP - General Family Medicine 10/07/20 [facility] [address] [place] [address] Yesenia Granger See Assigned Surgical 03/13/20 2 MD Crow Provider [address] [facility] [address] [place], [place] [address] Ayala Lemos, Assigned Heart and 10/02/20 [facility] CORPORATE DEVELOPMENT INTERN Vascular Provider [address] [address] Malina Parra Assigned Sleep 11/27/20 12/31/20 MD Gio Provider [address] [place] [address] Tiffanie Lomeli Assigned Sleep 01/01/21 RAOUL Garcia Provider [address] [place] [address] [address] Ivis Akers MD Cardiovascular Disease 01/05/22 DO Shira [address] [place] [address] documented as of this encounter
--- OUTSIDE RECORDS SUMMARY | 2022-02-20 21:12 | XMS_ITS | Encounter Summary ---
:1945 Author Organization [place] Address [address] [place] [address] Care Team Providers Name Role Phone Yesenia Granger MD Unavailable Elosie Malave MD Primary Care Provider Ayala Lemos APRN NIGHT WORKER Unavailable [phone] Tiffanie Lomeli PA-C Unavailable [phone] Reason for Visit Reason Comments Sleep Problem STM Encounter Details Date Type Department Care Team Description 01/16/2021 Documentation Only [facility] Sleep Sleep Problem (STM) Center [address], [address] [place] [address] Social History Tobacco Use Types Packs/Day Years Used Date Smoking Tobacco: Never Smokeless Tobacco: Never Alcohol Use Standard Drinks/Week Comments No 0 (1 standard drink = 0.6 oz pure alcoho l) Sex Assigned at Date Recorded Not on file documented as of this encounter Progress Notes Jacinta Root - 01/16/2021 10:00 AM CDT 3 day Sleep therapy management telephone visit Diagnostic AHI: 41.4 PSG Confirmed with patient at time of call- N/A Patient is still interested in [facility] service Data only recheck mailbox is full unable to leave voicemail Objective data Order Settings for PAP CPAP min 5 CPAP max 15 Device settings from machine CPAP min 5.0 CPAP max 15.0 EPR Setting TWO RESMED soft response OFF Assessment: one night of usage for 4 minutes Action plan: Patient to have 14 day STM visit. Patient has a follow up visit scheduled: no, but is required by insurance for compliance Replacement device: No STM ordered by provider: Yes Total time spent on accessing and interpreting remote patient PAP therapy data 10 minutes Total time spent counseling, coaching and reviewing PAP therapy data with patient 0 minutes [id number] no Jacinta Root - 01/16/2021 10:00 AM CDT Patient returned call. Subjective measures: Patient reports she tried the device one night and feels like she was getting too much air. Discussed acclimation tips. Assessment: Pt not meeting objective benchmarks for compliance Patient failing following subjective benchmarks: pressure issues Action plan:pt to have 14 day STM visit. Changed ramp to start at 4.0 cm H20 Total time spent counseling, coaching and reviewing PAP therapy data with patient 4 minutes [id number] (this call) [id number] no (previous call) documented in this encounter Plan of Treatment Upcoming Encounters Date Type Specialty Care Team Description 05/16/2022 Office Visit Cardiology Jorge Luis Akers DO [address] [place] [address] (Wo rk) documented as of this encounter Visit Diagnoses Not on filedocumented in this encounter Care Teams Loan Coordinator Relationship Specialty Start Date End Date BubbatEloise MD PCP - General Family Medicine 10/07/20 [facility] [id number] [place] [address] Yesenia Granger, Assigned Surgical Provider 02/2112/15/[address] [place] [address] [address] [place], [place] [address] Ayala Lemos APRN Assigned Heart and 10/02/20 NIGHT WORKER Vascular Provider [address] [address] Tiffanie Lomeli Assigned Sleep Provider 01/01/21 RAOUL Garcia [address] [address] [address] documented as of this encounter
--- OUTSIDE RECORDS SUMMARY | 2022-02-20 21:12 | XMS_ITS | Encounter Summary ---
:1945 Author Organization [place] Address [facility] [place] [address] Care Team Providers Name Role Phone Yesenia Granger MD Unavailable HetEloise hess MD Primary Care Provider Ayala Lemos APRN MEDICAL TECHNOLOGIST Unavailable [phone] Tiffanie Lomeli PA-C Unavailable [phone] Encounter Details Date Type Department Care Team Description 12/05/2021 [facility] Only [facility] Anna Bush Chronic diastolic Heart Clinic Linda Hoffman RN congestive heart [address] [facility] ( ) [facility] [address] [place] [address] Social History Tobacco Use Types Packs/Day Years Used Date Smoking Tobacco: Never Smokeless Tobacco: Never Alcohol Use Standard Drinks/Week Comments No 0 (1 standard drink = 0.6 oz pure alcoho l) Sex Assigned at Date Recorded Not on file documented as of this encounter Progress Notes Anna Bush RN - 12/05/2021 11:10 AM CDT Call out to Pt to see were she would like refills sent to. Billy Bush RN documented in this encounter Plan of Treatment Upcoming Encounters Date Type Specialty Care Team Description 05/16/2022 Office Visit Cardiology Jorge Luis Akers DO [address] [facility] [address] [place] [address] (Wo rk) documented as of this encounter Visit Diagnoses Diagnosis Chronic diastolic congestive heart failu re (H) Chronic diastolic heart failure documented in this encounter Additional Health Concerns Assessment Noted Time PHQ-9 Depression Total Score: 4 05/29/2021 8:47 AM MACHINE PLUG SHAPER documented as of this encounter Care Teams Poultry Killer Relationship Specialty Start Date End Date Eloise Malave MD PCP - General Family Medicine 10/07/20 [facility] [address] [place], [place] [phone] Yesenia Granger, Assigned Surgical Provider 02/2112/15/21 [address] [facility] [address] [place], [place] [address] Ayala Lemos APRN Assigned Heart and 10/02/20 MEDICAL TECHNOLOGIST Vascular Provider [address] [address] Tiffanie Lomeli Assigned Sleep Provider 01/01/21 RAOUL Garcia [address] [address] documented as of this encounter
--- OUTSIDE RECORDS SUMMARY | 2022-02-20 21:12 | XMS_ITS | Encounter Summary ---
:1945 Author Organization [place] Address [address] [place] [address] Care Team Providers Name Role Phone Eloise Malave MD Primary Care Provider Ayala Lemos APRN PROFESSOR OF RELIGION Unavailable [phone] Tiffanie Viramontes PA-C Unavailable [phone] Ivis Akers DO Unavailable [phone] Reason for Visit Reason Comments Orders Encounter Details Date Type Department Care Team Description 01/05/2022 Documentation Only [facility] Martha Solorzano, [place] [address] [facility] [address] [place] [address] Social History Tobacco Use Types Packs/Day Years [...] have Coronavirus/COVID-19? documented as of this encounter Progress Notes Joy Solorzano RN - 01/05/2022 2:46 PM CDT New orders entered as unable to collect specimen and orders released. Lizy RN documented in this encounter Plan of Treatment Upcoming Encounters Date Type Specialty Care Team Description 05/16/2022 Office Visit Cardiology Jorge Luis Akers DO [address] [address] (Wo rk) documented as of this encounter Visit Diagnoses Diagnosis Other acute pulmonary embolism with acut e cor pulmonale (H) - Primary History of deep venous thrombosis Personal history of venous thrombosis an d embolism Abnormal coagulation profile Chronic diastolic congestive heart failu re (H) Chronic diastolic heart failure documented in this encounter Additional Health Concerns Assessment Noted Time PHQ-9 Depression Total Score: 4 05/29/2021 8:47 AM REAL ESTATE CLOSING COORDINATOR documented as of this encounter Care Teams Camp Dining Room Attendant Relationship Specialty Start Date End Date Eloise Malave MD PCP - General Family Medicine 10/07/20 [facility] [address] [place], [place] [id number] Ayala Lemos, Assigned Heart and 10/02/20 LOAN EXPEDITOR PROFESSOR OF RELIGION Vascular Provider [address] [address] Tiffanie Lomeli Assigned Sleep 01/01/21 RAOUL Garcia Provider [address] [place] [address] [address] Ivis Akers MD Cardiovascular Disease 01/05/22 DO Shira [address] [address] documented as of this encounter
--- OUTSIDE RECORDS SUMMARY | 2022-02-20 21:12 | XMS_ITS | Encounter Summary ---
:1945 Author Organization [place] Address [facility] [place] [address] Care Team Providers Name Role Phone Yesenia Granger MD Unavailable HetEloise hess MD Primary Care Provider Ayala Lemos APRN, CNP Unavailable [phone] Tiffanie Lomeli PA-C Unavailable [phone] Reason for Referral Consultation (Routine: Next available opening) - Pending Review Specialty Diagnoses / Procedures Referred By Contact Refer red To Contact Cardiovascular Disease Diagnoses Chronic diastolic congestive heart failure (H) Shortness of breath RAFAEL (obstructive sleep apnea) Essential hypertension Hyperlipidemia LDL goal <100 Ayala Lemos APRN CERAMIC WORKER [address] [place] [address] Referral ID Status Reason Start Date Expiration Date Visits V isits Requested Authorized [id number] Pending 05/22/2021 05/22/2022 1 1 Review RNATIONAL CONTROLLER Reason for Visit Reason Comments Heart Failure Hypertension (Routine) - Closed Specialty Diagnoses / Procedures Referred By Contact Refer red To Contact Diagnoses Chronic diastolic congestive heart failure (H) Shortness of breath RAFAEL (obstructive sleep apnea) Essential hypertension Hyperlipidemia LDL goal <100 Ayala Lemos APRN CNP [address] [place] [address] Referral ID Status Reason Start Date Expiration Date Visits Requ ested Visits Authorized [id number] Closed 10/07/2020 10/07/2021 1 1 Encounter Details Date Type Department Care Team Description 05/22/2021 Office Visit [facility] Celsa Lemos astbhavna congestive heart failure (H) (Primary Dx); Heart Clinic MARIELA Cai CNP Shortness of breath; [place] [address] RAFAEL (obstructive sleep apnea ); [address] [employer] [address] Essential hypertension; [address] [place] [address] Hyperlipidemia LDL goal <100 [place], [place] [phone] [address] (Work) [phone] Social History Tobacco Use Types Packs/Day Years Used Date Smoking Tobacco: Never Smokeless Tobacco: Never Alcohol Use Standard Drinks/Week Comments No 0 (1 standard drink = 0.6 oz pure alcoho l) Sex Assigned at Date Recorded Not on file COVID-19 Exposure Response Date Recorded In the last month, have you been in contact with Yes 05/22/2021 1:35 PM INTERNATIONAL CONTROLLER someone who was confirmed or suspected to have Coronavirus / COVID-19? documented as of this encounter Last Filed Vital Signs Vital Sign Reading Time Taken Comments Blood Pressure 122/72 05/22/2021 1:37 PM INTERNATIONAL CONTROLLER Pulse 56 05/22/2021 1:37 PM INTERNATIONAL CONTROLLER Temperature - - Respiratory Rate - - Oxygen Saturation - - Inhaled Oxygen Concentration - - Weight 83.9 kg (185 lb) 05/22/2021 1:37 PM INTERNATIONAL CONTROLLER Height 154.9 cm (5' 1) 05/22/2021 1:37 PM INTERNATIONAL CONTROLLER Body Mass Index 34.96 05/22/2021 1:37 PM INTERNATIONAL CONTROLLER documented in this encounter Patient Instructions Patient InstructionsChAyala waite APRN CNP - 05/22/2021 1:50 PM INTERNATIONAL CONTROLLER Thanks for participating in a office visit with the [facility] [place] Heart clinic today. Stable on a cardiac standpoint Blood pressures well controlled Weights stable Reviewed last echocardiogram - stable Continue on current medications Follow up with sleep medicine for evaluation of CPAP Encourage exercise, weight loss, and low sodium diet. Follow up in [address] Akers Please call my nurse at [phone] with any questions or concerns. Scheduling phone number: [phone] Reminder: Please bring in all current medications, over the counter supplements and vitamin bottles to your next appointment. RNATIONAL CONTROLLER documented in this encounter Progress Notes Ayala Lemos APRN CNP - 05/22/2021 1:50 PM CST Cardiology Clinic Progress Note Racquel Jones Date of : 1945 Age: [age] year old Reason For Visit: 6 month follow up Primary Granulator Tender: Dr. Akers History of Presenting Illness: Racquel Jones is a pleasant 75 year old patient who carries a past medical history significant forhypertension, HFpEF, DVT, RAFAEL on CPAP, postoperative atrial fibrillation after ventral hernia repair, off anticoagulation due to no recurrence. She returns to the office today for a 6 month follow up. Her primary complaints are chronic exertional shortness of breath and leg edema. She was trialed on higher dose diuretics with no improvement in symptoms. Echocardiogram (09/20/2020 ) showed a normal ejection fraction estimated at 65- 70%, mild aortic regurgitation, grade 3 diastolic dysfunction, and normal RV size and function. She does not engage in any routine exercise and remains primarily sedentary. [place]. She denies chest pain, palpitations, PND, orthopnea, presyncope, or syncope. Upon exam, lungs are clear bilaterally, heart rate and rhythm regular, no neck vein distention, abdominal distention, and trace bilateral lower extremity edema. Bilateral LE venous US (07/2020) showed bilateral vein competence and no evidence of DVT. Blood pressure is well controlled at 122/72 Last lipid panel showed a total cholesterol of 176, HDL 56, LDL 81, and triglycerides 193 on simvastatin. BMI 34.96 She has not wore her CPAP for the last 3 days due to equipment malfunction. She is scheduled to follow-up with sleep medicine next week. She is following closely with urology for uterovaginal prolapse and stress incontinence. She is scheduled to undergo cystoscopy, endometrial biopsy, vaginal repair, and mid urethral sling in June. Remains compliant with all medications. Assessment and Plan: 1. Heart failure with preserved ejection fraction -chronic exertional shortness of breath, unchangedfrom baseline. Echocardiogram (09/20/2020 ) showed a normal ejection fraction estimated at 65- 70%, mild aortic regurgitation, grade 3 diastolic dysfunction, and normal RV size and function. Weight stable at 185 pounds. Euvolemic upon exam. Continue Lasix and metoprolol. Encourage exercise, weight loss,and strict heart healthy diet 2. Hypertension -well controlled 3. Hyperlipidemia -LDL at goal, on statin 4. Obstructive sleep apnea -on CPAP. Follow-up with sleep medicine as scheduled next week 5. Leg edema - Bilateral LE venous US (07/2020) showed bilateral vein competence and no evidence of DVT. Encourage compression stockings, leg elevation and low- dose diuretics. Thank you for allowing me to participate in this delightful patient's care. I have recommended she follow up in [address] Akers or sooner if needed. Ayala Lemos, MARIELA CERAMIC WORKER Review of Systems: Review of Systems: Skin: Positive for itching Eyes: Positive for glasses ENT: Positive for hearing loss Respiratory: Positive for dyspnea on exertion;wheezing;sleep apnea;CPAP Cardiovascular: Positive for;chest pain;fatigue Gastroenterology: Positive for Genitourinary: Positive for incontinence;urinary frequency;urgency Musculoskeletal: Positive for arthritis;joint pain;back pain;neck pain Neurologic: Positive for headaches Psychiatric: not assessed Heme/Lymph/Imm: Positive for allergies Endocrine: Negative Physical [...] soft, nontender, nondistended. No HSM appreciated. EXTREM: Trace bilateral LE edema. No cyanosis or clubbing. NEURO: [...] SURGERY Allergies: Amoxicillin and Sulfa drugs Data: RNATIONAL CONTROLLER documented in this encounter Plan of Treatment Upcoming Encounters Date Type Specialty Care Team Description 05/16/2022 Office Visit Cardiology Jorge Luis Akers DO [address] [place] [id number] (Wo rk) Scheduled Referrals Name Type Priority Associated Diagnoses Order S chedule Follow-Up with Referral Routine: Next Chronic diastolic Expecte d: Cardiology available opening congestive heart 2021 failure (H) (Approximate), Shortness of marc ath Expires: RAFAEL (obstructive 05/22/2022 sleep apnea) Essential hypertension Hyperlipidemia LDL goal <100 documented as of this encounter Visit Diagnoses Diagnosis Chronic diastolic congestive heart failu re (H) - Primary Chronic diastolic heart failure Shortness of breath RAFAEL (obstructive sleep apnea) Obstructive sleep apnea (adult) (pediatr ic) Essential hypertension Unspecified essential hypertension Hyperlipidemia LDL goal <100 Other and unspecified hyperlipidemia documented in this encounter Care Teams Power Ballast Machine Operator Relationship Specialty Start Date End Date Eloise Malave MD PCP - General Family Medicine 10/07/20 [facility] [address] [place], [place] [phone] Yesenia Granger, Assigned Surgical Provider 02/2112/15/[address] [place] [address] [address] [place], [place] [address] Ayala Lemos APRN Assigned Heart and 10/02/20 CERAMIC WORKER Vascular Provider [address] [address] Tiffanie Lomeli Assigned Sleep Provider 01/01/21 RAOUL Garcia [address] [place] [address] [place] [address] documented as of this encounter
--- OUTSIDE RECORDS SUMMARY | 2022-02-20 21:12 | XMS_ITS | Encounter Summary ---
:1945 Author Organization [place] Address [address] [place] [address] Care Team Providers Name Role Phone Yesenia Granger MD Unavailable Eloise Malave MD Primary Care Provider Ayala Lemos APRN BATTERY TESTER AND REPAIRER Unavailable [phone] Malina Parra MD Unavailable Reason for Visit Reason Comments Sleep Problem (Routine) - Closed Specialty Diagnoses / Procedures Referred By Contact Refer red To Contact Sleep Medicine Diagnoses PSG (oxygen, DME CPAP) Insurance: Medicare () sleep study packet emailed to [email or web address] 12/13 ([place]) Sleep Center Procedures PSG DIAGNOSTIC [address] [facility] [address] [place] [phone] Phone: Referral ID Status Reason Start Date Expiration Date Visits Requ ested Visits Authorized [id number] Closed 12/14/2020 12/14/2021 1 1 Encounter Details Date Type Department Care Team Description 12/14/2020 Therapy Visit [facility] Sleep Sno ring; [facility] Essential hypertension [address] [facility] [address] [place] [address] Social History Tobacco Use Types Packs/Day Years Used Date Smoking Tobacco: Never Smokeless Tobacco: Never Alcohol Use Standard Drinks/Week Comments No 0 (1 standard drink = 0.6 oz pure alcoho l) Sex Assigned at Date Recorded Not on file documented as of this encounter Patient Instructions Patient InstructionsEddie Mccoy - 12/14/2020 8:00 PM CDT Diagnostic PSG completed per provider order. Patient met criteria for PAP therapy. documented in this encounter Plan of Treatment Upcoming Encounters Date Type Specialty Care Team Description 05/16/2022 Office Visit Cardiology Jorge Luis Akers DO [address] [place] [id number] (Wo rk) documented as of this encounter Procedures Procedure Name Priority Date/Time Associated Diagnosis Comme nts PROPERTY ADJUSTER COMPREHENSIVE SLEEP Routine 12/14/2020 9:20 PM Snori ng CDT Essential hypertension documented in this encounter Results Comprehensive Sleep Study (12/14/2020 9:20 PM CDT) Analysis Performed At Patho logist Time Signature PROPERTY ADJUSTER Comprehensive [facility] Sleep Specimen (Source) Anatomical Collection Method Collection Time Re ceived Time Location / / Volume Laterality 12/14/2020 9:20 PM CDT Malina Parra MD PROCEDURES Performing Organization Address City/State/ZIP Code Phon e Number [facility] documented in this encounter Visit Diagnoses Diagnosis Snoring Other dyspnea and respiratory abnormalit y Essential hypertension Unspecified essential hypertension documented in this encounter Care Teams Director Learning And Development Relationship Specialty Start Date End Date BubbatEloise MD PCP - General Family Medicine 10/07/20 [facility] [address] [place], [place] [phone] Yesenia Granger, Assigned Surgical Provider 02/2112/15/21 [address] [facility] [address] [place] [address] Ayala Lemos APRN Assigned Heart and 10/02/20 BATTERY TESTER AND REPAIRER Vascular Provider [address] [id number] Malina Parra, Assigned Sleep Provider 11/27/20 12/31/20 [address] [place] [address] documented as of this encounter
--- OUTSIDE RECORDS SUMMARY | 2022-02-20 21:12 | XMS_ITS | Encounter Summary ---
:1945 Author Organization [place] Address [facility] [place] [address] Care Team Providers Name Role Phone Yesenia Granger MD Unavailable Eloise Malave MD Primary Care Provider Ayala Lemos APRN DRAFTING ENGINEER Unavailable [phone] Tiffanie Lomeli PA-C Unavailable [phone] Reason for Visit Reason Comments CPAP Follow Up Encounter Details Date Type Department Care Team Description 03/30/2021 Office Visit [facility] Tiffanie Lomeli RAFAEL (obs tructive sleep apnea) (Primary Dx); Sleep Centers Linda Garcia PA-C Obesity with body mass index 30 or great er [address] [facility] [address] [place] [address] [address] [place] [address] [place] [address] Social History Tobacco Use Types [...] with No / Unsure 03/30/2021 11:51 AM AVIONICS SYSTEM ENGINEER someone who was confirmed or suspected to have Coronavirus / COVID-19? documented as of this encounter Last Filed Vital Signs Vital Sign Reading Time Taken Comments Blood Pressure 132/64 03/30/2021 12:00 PM AVIONICS SYSTEM ENGINEER Pulse 60 03/30/2021 12:00 PM AVIONICS SYSTEM ENGINEER Temperature - - Respiratory Rate - - Oxygen Saturation 96% 03/30/2021 12:00 PM AVIONICS SYSTEM ENGINEER Inhaled Oxygen Concentration - - Weight 83.9 kg (185 lb) 03/30/2021 12:00 PM AVIONICS SYSTEM ENGINEER Height 154.9 cm (5' 1) 03/30/2021 12:00 PM AVIONICS SYSTEM ENGINEER Body Mass Index 34.96 03/30/2021 12:00 PM AVIONICS SYSTEM ENGINEER documented in this encounter Patient Instructions Patient InstructionsRony MeghanaMARTA simmons - 03/30/2021 12:00 PM CST Your BMI is Body mass index is 34.96 kg/m??. Weight management is a personal decision. If [...] is considered obese. More than two-thirds of Chinese adults are considered overweight or obese. Being [...] to discuss a diet and exercise plan. NICS SYSTEM ENGINEER documented in this encounter Progress Notes Tiffanie Lomeli PA-C - 03/30/2021 12:00 PM CST [facility] Outpatient Sleep Medicine Mar 30, 2021 Name: Racquel Jones Age: [age] year old Date of : 1945 Assessment and Plan: 1. RAFAEL (obstructive sleep apnea) Patient's sleep apnea is moderately well treated with current PAP settings 5- [id number] with residual AHI of 7.0 events per hour. Very close to goal of <5 events per hour and significantly better than diagnostic AHI of 41.4. Compliance is good, meeting all compliance goals. Unfortunately, does not note significant improvement in sleep since stating PAP but did not have many complaints to begin with. Largest complaint today is that she will wake in middle of the night feeling the pressure is too strong. Also complains of dry mouth and I suspect mouth leak. Discussed decreasing max pressure today to help with tolerance and new pressures will be autoCPAP [id number]. Recommended she look into chin strap or using small amount of tape to help with mouth leak if chin strap not tolerated. - Comprehensive DME 2. Obesity with body mass index 30 or greater Encouraged patient to work on weight loss as weight loss can improve sleep apnea severity. Racquel M Estrem will follow up in about 2 months to recheck progress on CPAP at new pressure settings, or sooner as needed. Chief Complaint Chief Complaint Patient presents with ??? CPAP Follow Up History of Present Illness: Racquel Jones is a 75 year old female who presents to the clinic today with her daughter for follow-up of their severe obstructive sleep apnea. Other significant past medical history includes hypertension, HFpEF, DVT, A.fib, GERD, depression, obesity. Originally diagnosed via PSG on 12/14/2020 (183#, BMI 35) with AHI 41.4 and respiratory obstruction was more frequent during REM sleep (REM AHI 67.4). Nocturnal hypoxemia was present and episodic oxyhemoglobin desaturations were more severe during REM sleep - Low O2 65.0%, Time Spent ?88% 19.6 minutes / Time Spent ?89% 27.1 minutes. Periodic limb movements were observed and were noted to cause arousals from sleep - PLM index was 67.4 movements per hour, arousal index 15.2 per hour.??Normal sinus rhythm on cardiac monitoring. Set up with CPAP on 01/13/2021 through [facility] in [place]. Returns to clinic today for insurance required compliance visit. Overall, the patient rates their experience with PAP as 5 (0 poor, 10 great) - states I don't like it but I don't know if anyone does and I don't know if I notice a difference. Least favorite aspectsof CPAP is getting it on at night and waking up in the middle of the night feeling the pressure is too strong. Struggled with finding a mask that she likes but her current nasal pillow mask seems to becomfortable overall. Does leak at times. No snoring or any gasp arousals with the mask on. As above feels the pressures can be too strong at times in middle of night. Denies nasal dryness or epistaxis but can wake with oral dryness. Suspect mouth leak. Bedtime is typically ~11:00PM. Denies problems falling asleep with the mask on. Wake time is typically 6:30-7:00AM. Patient is using PAP therapy ~6 hours per night. The patient is usually getting 7-8 hours of sleep per night, wakes and takes mask off if she struggles with it and sleeps remainder of night without it. ResMed Auto-PAP 5-15 cmH2O download: 28 total days of use. 2 nonuse days. 23 days with >4 hours use. Average use 5 hours 53 minutes per day. Median Leak 8.4 L/min. 95%ile Leak 31.7 L/min. CPAP 95% pressure 10.6cm. AHI 7.0 (obstructive apnea 4.4, central apnea 0.7, hypopnea 1.0, unknown apnea 0.8) SCALES: INSOMNIA: Insomnia Severity Score: 7 SLEEPINESS: [place] Sleepiness Score: 2 Past medical/surgical history, family history, social history, medications and allergies were reviewed. Physical Examination: BP 132/64 Pulse 60 Ht 1.549 m (5' 1) Wt 83.9 kg (185 lb) SpO2 96% BMI 34.96 kg/m?? General appearance: Awake, alert, cooperative. Well groomed. Sitting comfortably in chair. In no apparent distress. HEENT: Head: Normocephalic, atraumatic. Eyes:Conjunctiva clear. Sclera normal. Remainder of face covered by mask. Pulmonary: Able to speak easily in full sentences. No cough or wheeze. Skin: No rashes or significant lesions on visible skin. Neurologic: Alert, oriented x3. Psychiatric: Mood euthymic. Affect congruent with full range and intensity. CC: Eloise Malave PA-C Mar 30, 2021 [facility] [address] [place], [place] [address] [place] [address] Sleep Center [address] [facility] [address] [address] Chart documentation was completed, in part, with Listia voice-recognition software. Even though reviewed, some grammatical, spelling, and word errors may remain. 50 minutes spent on day of encounter doing chart review, history and exam, documentation, and further activities as noted above NICS SYSTEM ENGINEER documented in this encounter Nursing Notes Meghana Uribe MA - 03/30/2021 12:00 PM CST Chief Complaint Patient presents with ??? CPAP Follow Up Initial BP 132/64 Pulse 60 Ht 1.549 m (5' 1) Wt 83.9 kg (185 lb) SpO2 96% BMI 34.96 kg/m?? Estimated body mass index is 34.96 kg/m?? as calculated from the following: Height as of this encounter: 1.549 m (5' 1). Weight as of this encounter: 83.9 kg (185 lb). Medication Reconciliation: complete ESS 2 Meghana Uribe CMA NICS SYSTEM ENGINEER documented in this encounter Plan of Treatment Upcoming Encounters Date Type Specialty Care Team Description 05/16/2022 Office Visit Cardiology Jorge Luis Akers DO [address] [place] [id number] (Wo rk) documented as of this encounter Visit Diagnoses Diagnosis RAFAEL (obstructive sleep apnea) - Primary Obstructive sleep apnea (adult) (pediatr ic) Obesity with body mass index 30 or great er documented in this encounter Care Teams Clinical Education Consultant Relationship Specialty Start Date End Date Eloise Malave MD PCP - General Family Medicine 10/07/20 [facility] [address] [place], [place] [phone] Yesenia Granger, Assigned Surgical Provider 02/2112/15/21 [address] [facility] [address] [place], [place] [address] Ayala Lemos APRN Assigned Heart and 10/02/20 DRAFTING ENGINEER Vascular Provider [address] [address] Tiffanie Lomeli Assigned Sleep Provider 01/01/21 RAOUL Garcia [address] [place] [address] documented as of this encounter
--- OUTSIDE RECORDS SUMMARY | 2022-02-20 21:12 | XMS_ITS | Encounter Summary ---
:1945 Author Organization [place] Address [facility] [place] [address] Care Team Providers Name Role Phone Eloise Malave MD Primary Care Provider Ayala Lemos APRN DISTRICT RESOURCE OFFICER Unavailable [phone] Tiffanie Viramontes PA-C Unavailable [phone] Ivis Akers DO Unavailable [phone] Reason for Referral Consultation (Routine: Next available opening) - Pending Review Specialty Diagnoses / Procedures Referred By Contact Refer red To Contact Cardiovascular Disease Diagnoses Other acute pulmonary embolism with acute cor pulmonale (H) History of deep venous thrombosis Abnormal coagulation profile SOB (shortness of breath) Ivis Akers DO [address] [facility] [address] [place] [address] Referral ID Status Reason Start Date Expiration Date Visits V isits Requested Authorized [id number] Pending 01/05/2022 01/05/2023 1 1 Review Reason for Visit Reason Comments Hospital F/U 12/12/21 in ED CV Cardio consult (Priority: 1-2 Weeks) - [...] Expiration Date Visits V isits Requested Authorized [id number] Pending 12/12/2021 12/12/2022 1 1 Review Encounter Details Date Type Department Care Team Description 01/05/2022 Office Visit [facility] Ivis Akers Other acute pulmonary embolism with acute cor pulmonale (H) (Primary Dx); Heart Clinic DO Shira History of deep venous thrombosis; [place] [address] Abnormal coagulation profile ; [address] [address] SOB (shortness of breath) [address] [place] [address] [place], [place] [phone] (Wo rk) [address] [phone] Social History Tobacco Use Types Packs/Day Years [...] Pulse 60 01/05/2022 1:07 PM CDT Temperature - - Respiratory Rate - - Oxygen Saturation 96% 01/05/2022 1:07 PM CDT Inhaled Oxygen Concentration - - Weight 83.7 kg (184 lb 8 oz) 01/05/2022 1:07 PM CDT Height 165.1 cm (5' 5) 01/05/2022 1:07 PM CDT Body Mass Index 30.7 01/05/2022 1:07 PM CDT documented in this encounter Progress Notes Ivis Akers DO - 01/05/2022 1:59 PM CDT Service Date: 01/05/2022 REFERRING PROVIDER: Dr. Eloise Malave. HISTORY OF PRESENT ILLNESS: Ms. Cheema is a pleasant 76-year-old female with a history of obesity, remote paroxysmal atrial fibrillation, heart failure with preserved ejection fraction, hypertension, sleep apnea. She was hospitalized in November for respiratory distress and found to have a pulmonary embolus. She was at [facility]. She was placed on Xarelto. She did have an echocardiogram duringthat admission, which I was able to see, showing a hyperdynamic LV systolic function. EF was around 79%. She had some trace to mild mitral regurgitation. Her RV function was moderately reduced with mild pulmonary hypertension. Since discharge, she has continued to have difficulty breathing, mainly with exertion. At nighttime it seems to be better. She does wear a CPAP for sleep apnea and seems to do well with this, although she does not wear it the full night. She also was sent home on oxygen, and she is not sure what to do with this oxygen tank that she has. Apparently she had received it from the hospital, and I had suggested that she call the hospital to have them come pick it up. She is not sure whether she was supposed to continue on oxygen at nighttime, but she does not seem to have any trouble breathing at night or symptoms of orthopnea. I recommend an overnight oximetry to see if she is having episodes of hypoxia during the night and therefore may require continued oxygen at nighttime. She is not using it during the day. Again, she is short of breath and her exercise tolerance has decreased because of it. I did measure her oxygen levels today in office at rest. It was 96%. PHYSICAL EXAMINATION: Blood pressure today was 110/60, pulse is 60, weight is 184, which is stable over the last year. Cardiovascular tones were regular without murmur, gallop or rub. Lung cedeño were diminished posteriorly, but otherwise clear. I do not appreciate any peripheral edema on exam. ASSESSMENT AND PLAN: In summary, Ms. Cheema is a very pleasant 76-year-old female with underlying paroxysmal atrial fibrillation, hypertension and heart failure with preserved ejection fraction. She has a remote history of DVT with a new recent pulmonary embolism and respiratory distress. I do not seethat they did any type of hypercoagulable state. The patient is wondering how long she needs to be on anticoagulation. I think it is important, given this is recurrence of clot, to look for hypercoagulable state giving an unprovoked pulmonary embolism. I have asked her to remain on Xarelto for now. Typically, it is around 6 months, but if she has an underlying hypercoagulable state, she may require further or more chronic anticoagulation. In addition to this, because she is continuing to have difficulty breathing, I would like to order an NT- proBNP to help determine whether she has evidence of persistent diastolic heart failure and may need adjustment of her diuretics. She is currently taking 20 mg. She really does not like to take Lasix because it causes significant urinary frequency that affects her socially. We talked a little bit about this and how to manage it in order to prevent further deterioration of the diastolic heart failure. One important factor is monitoring her salt intake in [facility], and we did discuss that today as well. So I will have her undergo an overnight oximetry. I have not adjusted any of her medications, but based on the lab tests today we may decide to adjust her diuretic. She will contact the hospital about the oxygen tank. We will keep her on Xarelto at least for a period of 6 months and obtain the hypercoagulable labs. I will have her come back to clinic in [facility] [place] 2 weeks for recheck and a basic metabolic panel if we adjust her diuretics. Please feel free to contact me with any questions you have in regards to her care. Ivis Akers DO cc: [place] [address] Ivis Akers DO MT: Name: RACQUEL CHEEMA MRN: [id number] Account: [id number] : 1945 Service Date: 01/05/2022 Document: [id number] Ivis Akers DO - 01/05/2022 1:15 PM CDT HPI and Plan: See dictation Orders Placed This Encounter Procedures ??? Lupus Anticoagulant Panel ??? Cardiolipin Jagruti IgG and IgM ??? Beta 2 Glycoprotein 1 Antibody IgM ??? N terminal pro BNP outpatient ??? Basic metabolic panel ??? Follow-Up with Cardiology MARJ ??? Overnight oximetry study Orders Placed This Encounter Medications ??? XARELTO ANTICOAGULANT 20 MG TABS tablet Medications Discontinued During This Encounter Medication Reason ??? aspirin 81 MG EC tablet Medication Reconciliation Clean Up ??? fluticasone (FLONASE) 50 MCG/ACT nasal spray Medication Reconciliation Clean Up ??? furosemide (LASIX) 20 MG tablet Medication Reconciliation Clean Up ??? omega 3 1000 MG CAPS Medication Reconciliation Clean Up Encounter Diagnoses Name Primary? Other acute pulmonary embolism with acute cor pulmonale (H) Yes ??? History of deep venous thrombosis ??? Abnormal coagulation profile ??? SOB (shortness of breath) CURRENT MEDICATIONS: Current Outpatient Medications Medication Sig Dispense Refill ??? cholecalciferol (VITAMIN D-[address]) 25 MCG (1000 UT) TABS Take 1,000 Units by mouth daily ??? escitalopram (LEXAPRO) 10 MG tablet Take 15 mg by mouth ??? famotidine (PEPCID) 20 MG tablet Take 20 mg by mouth 2 times daily ??? furosemide (LASIX) 20 MG tablet Take 1 tablet (20 mg) by mouth daily 90 tablet 2 ??? metoprolol succinate ER (TOPROL XL) 50 MG 24 hr tablet Take 1 tablet (50 mg) by mouth daily 90 tablet 3 ??? potassium chloride ER (MICRO-K) 10 MEQ CR capsule Take 10 mEq by mouth daily ??? simvastatin (ZOCOR) 40 MG tablet Take 40 mg by mouth daily ??? XARELTO ANTICOAGULANT 20 MG TABS tablet ALLERGIES Allergies Allergen Reactions ??? Amoxicillin Nausea [...] Drug use: No Review of Systems: Skin: Eyes: ENT: Respiratory: Positive for dyspnea on exertion;sleep apnea;CPAP;shortness of breath Cardiovascular: chest pain;Positive for Gastroenterology: Genitourinary: Musculoskeletal: Neurologic: Psychiatric: Heme/Lymph/Imm: Endocrine: Physical Exam: Vitals: BP 110/60 (BP Location: Right arm, Patient Position: Sitting, Cuff Size: Adult Regular) Pulse 60 Ht 1.651 m (5' 5) Wt 83.7 kg (184 lb 8 oz) LMP (LMP Unknown) SpO2 96% BreastfeedingNo BMI 30.70 kg/m?? Constitutional: cooperative;in no acute distress Skin: [...] Alert and Oriented x 3 Anxious CC Provider Not In System documented in this encounter Plan of Treatment Upcoming Encounters Date Type Specialty Care Team Description 05/16/2022 Office Visit Cardiology Jorge Luis Akers DO [address] [place] [address] (Wo rk) Scheduled Orders Name Type Priority Associated Diagnoses Order S chedule Overnight oximetry Respiratory Care Routine Other acute pulmon nabil Expected: study embolism with acute 01/13/20 22 cor pulmonale (H ) (Approximate), History of deep Expires: venous thrombosi s 01/05/2023 Abnormal coagulation profile SOB (shortness of breath) Scheduled Referrals Name Type Priority Associated Diagnoses Order S chedule Follow-Up with Referral Routine: Next Other acute Expected: Cardiology MARJ available opening pulmonary embolism with acute cor (Approximate) , pulmonale (H) Expires: History of deep 01/05/2023 venous thrombosi s Abnormal coagulation profile SOB (shortness of breath) documented as of this encounter Results (ABNORMAL) Basic metabolic panel [...] and gender (Harpreet et al., NEJ, DOI: 10.1056/DHRHpq7434960) Specimen Anatomical Collection Method / Collection Time Recei hang Time (Source) Location / Volume Laterality Blood BLOOD SPECIMEN / Venipuncture / 01/09/2022 1:35 2021 1:35 Unknown Unknown PM CDT PM CDT Ivis Akers DO LAB - BLOOD ORDERABLES Performing Organization Address City/State/ZIP Code Phon e Number [facility] [place], [place] [phone] [place] [facility] [id number] [place] [address] Lab (no room number, 1st floor of clinic) [facility] [place], [place] [phone] [facility] [id number] [place] [facility] [address] Lab (no room number, 1st floor of clinic) documented in this encounter Visit Diagnoses Diagnosis Other acute pulmonary embolism with acut e cor pulmonale (H) - Primary History of deep venous thrombosis Personal history of venous thrombosis an d embolism Abnormal coagulation profile Abnormal coagulation profile SOB (shortness of breath) Shortness of breath documented in this encounter Additional Health Concerns Assessment Noted Time PHQ-9 Depression Total Score: 4 05/29/2021 8:47 AM REGIONAL ECONOMIST documented as of this encounter Care Teams Skein Drier Relationship Specialty Start Date End Date BubbatEloise MD PCP - General Family Medicine 10/07/20 [facility] [address] [place], [place] [phone] Ayala Lemos, Assigned Heart and 10/02/20 [employer] DISTRICT RESOURCE OFFICER Vascular Provider [address] [address] Tiffanie Lomeli Assigned Sleep 01/01/21 RAOUL Garcia Provider [address] [id number] Ivis Akers MD Cardiovascular Disease 01/05/22 DO Shira [address] [id number] documented as of this encounter
--- OUTSIDE RECORDS SUMMARY | 2022-02-20 21:12 | XMS_ITS | Encounter Summary ---
:1945 Author Organization [facility] Address [address] [place] [id number] Care Team Providers Name Role Phone Yesenia Granger MD Unavailable HetEloise hess MD Primary Care Provider Ayala Lemos APRN POULTRY FEED SUPERVISOR Unavailable [phone] Tiffanie Lomeli PA-C Unavailable Reason for Referral Specialty Diagnoses / Procedures Referred By Contact Refer red To Contact [facility] [address] [place] [phone] Referral ID Status Reason Start Date Expiration Date Visits Requ ested Visits Authorized Reason for Visit Reason Comments Sleep Problem PAP SETUP Encounter Details Date Type Department Care Team Description 01/13/2021 Documentation Only [facility] Slee p Problem (PAP Sleep Center SETUP) [address] [address] Social History Tobacco Use Types Packs/Day Years Used Date Smoking Tobacco: Never Smokeless Tobacco: Never Alcohol Use Standard Drinks/Week Comments No 0 (1 standard drink = 0.6 oz pure alcoho l) Sex Assigned at Date Recorded Not on file documented as of this encounter Progress Notes Jennifer Witt - 01/13/2021 10:30 AM CDT Patient was offered choice of vendor and chose [facility]. Patient Racquel Jones was set up at [place] on January 13, 2021. Patient received a Resmed Airsense 11 Pressures were set at 5-15 cm H2O. Patient???s ramp is 5 cm H2O for Auto and FLEX/EPR is EPR, 2. Patient received a Resmed Mask name: P30I Pillow mask size Standard, heated tubing and heated humidifier. Patient does need to meet compliance. Patient has a follow up on TBD with Tiffanie Lomeli PA-C . Jennifer Witt documented in this encounter Plan of Treatment Upcoming Encounters Date Type Specialty Care Team Description 05/16/2022 Office Visit Cardiology Jorge Luis Akers DO [address] [place] [id number] (Wo rk) Scheduled Referrals Name Type Priority Associated Diagnoses Order S chedule AirSense 10 - - - Sleep Referral Routine Orde red: 01/13/2021 Machine Order For ResMed w/ this device only documented as of this encounter Visit Diagnoses Not on filedocumented in this encounter Care Teams Business Change Manager Relationship Specialty Start Date End Date Eloise Malave MD PCP - General Family Medicine 10/07/20 [facility] [address] [place], [place] [id number] Yesenia Granger, Assigned Surgical Provider 02/2112/15/21 [address] [facility] [address] [place], [place] [id number] Ayala Lemos APRN Assigned Heart and 10/02/20 POULTRY FEED SUPERVISOR Vascular Provider [address] [id number] Tiffanie Lomeli Assigned Sleep Provider 01/01/21 RAOUL Garcia [address] [place] [id number] documented as of this encounter
--- OUTSIDE RECORDS SUMMARY | 2022-02-20 21:13 | XMS_ITS | Encounter Summary ---
:1945 Author Organization [facility] Address [address] [place] [address]. [place] [address] Care Team Providers Name Role Phone [facility] Primary Care Provider [phone] Ivis Akers DO Unavailable [phone] Yesenia Granger See Crow HUTCHINSON Unavailable Reason for Visit Reason Onset Date Comments Previsit 06/13/2020 Encounter Details Date Type Department Care Team Description 06/13/2020 PRE VISIT [facility] Urology Darrel Granger See MD [facility] [address] [place] [address] [place] [address] [phone] Social History Tobacco Use Types Packs/Day Years Used Date Smoking Tobacco: Never Smokeless Tobacco: Never Alcohol Use Standard Drinks/Week Comments No 0 (1 standard drink = 0.6 oz pure alcoho l) Sex Assigned at Date Recorded Not on file COVID-19 Exposure Response Date Recorded In the last month, have you been in contact with No / Unsure 09/02/2020 1:48 PM CDT someone who was confirmed or suspected to have Coronavirus / COVID-19? documented as of this encounter Miscellaneous Notes Telephone Encounter - Cristine McqueenBREANNA - 06/13/2020 4:48 PM CST CALLED AND LEFT MESSAGE ABOUT 10:30AM WITH YANE Early [employer] documented in this encounter Plan of Treatment Upcoming Encounters Date Type Specialty Care Team Description 05/16/2022 Office Visit Cardiology Jorge Luis Akers DO [address] [place] [id number] (Wo rk) documented as of this encounter Visit Diagnoses Not on filedocumented in this encounter Care Teams Records Associate Relationship Specialty Start Date End Date [facility] PCP - General 01/27/16 1 Medical [address] [place], [place] [id number] Ivis Akers Assigned Heart and Vascular 02/12/20 10/01/20 DO Shira Provider [address] [place] [id number] Yesenia Granger MD Assigned Surgical Provider 03/13/[address] [place] [address] [address] [place] [address] documented as of this encounter
--- OUTSIDE RECORDS SUMMARY | 2022-02-20 21:13 | XMS_ITS | Encounter Summary ---
:1945 Author Organization [facility] Address [address] [place] [address]. [place] [address] Care Team Providers Name Role Phone [facility] Primary Care Provider [phone] Ivis Akers DO Unavailable [phone] Yesenia Granger See Crow HUTCHINSON Unavailable Encounter Details Date Type Department Care Team Description 09/14/2020 Virtual Visit [facility] Yesenia Granger See [facility] U[facility] Clinic Linda Maria MD ENCOUNTER--DISREGARD [id number] [facility] [address] [facility] (Primary Dx) [address] [facility] [address] [place] [address] [place], [place] [phone] [address] Social History Tobacco Use Types Packs/Day Years [...] / COVID-19? documented as of this encounter Progress Notes Yesenia Granger MD - 09/14/2020 1:30 PM CDT When patient was called to check in it was noted she had not tried pelvic floor PT yet. Patient tooknumber for PT to schedule and will reschedule the follow up documented in this encounter Plan of Treatment Upcoming Encounters Date Type Specialty Care Team Description 05/16/2022 Office Visit Cardiology Jorge Luis Akers DO [address] [place] [id number] (Wo rk) documented as of this encounter Visit Diagnoses Diagnosis ERRONEOUS ENCOUNTER--DISREGARD - Primary documented in this encounter Care Teams Dry End Tester Relationship Specialty Start Date End Date [facility] PCP - General 01/27/16 1 Medical [address] [place] [address] Ivis Akers Assigned Heart and Vascular 02/12/20 10/01/20 DO Shira Provider [address] [place] [address] Yesenia Granger MD Assigned Surgical Provider 03/13/[address] [place] [address] [address] [place], [place] [address] documented as of this encounter
--- OUTSIDE RECORDS SUMMARY | 2022-02-20 21:13 | XMS_ITS | Encounter Summary ---
:1945 Author Organization [place] Address [facility] [place] [address] Care Team Providers Name Role Phone [facility] Primary Care Provider [phone] Ivis Akers DO Unavailable [phone] Yesenia Granger MD Unavailable Reason for Referral (Routine) - Closed Specialty Diagnoses / Procedures Referred By Contact Refer red To Contact Diagnoses Chronic diastolic congestive heart failure (H) Shortness of breath Ayala Lemos APRN [address] [address] [place] [address] Referral ID Status Reason Start Date Expiration Date Visits Requ ested Visits Authorized [id number] Closed 09/02/2020 09/02/2021 1 1 V Testing (Routine) - Closed Specialty Diagnoses / Procedures Referred By Contact Refer red To Contact Cardiology Diagnoses Chronic diastolic congestive heart failure (H) Ayala Lemos APRN Rh Cv Cardiac Svc Rscc Procedures Echocardiogram Complete ZZHC TTE W/DOPPLER, COMPLETE ZZHC ECHO COMPLETE W DOPPLER W CONTRAST ZZHC ECHO COMPLETE W DOPPLER W/O CONTRAST ZZHC IV PUSH SINGLE, INITIAL SUBSTANCE ZZHC US GUIDE FOR PERICARDIOCENTESIS [address] [place] [address] FAD ? IO ZZHC ECHO MYOCARD BX ZZC INJECTION, PERFLUTREN LIPID MICROSPHERES, PER ML ZZHC STATISTIC IV PUSH SINGLE INITIAL SUBSTANCE [place] ECHO MYOCARD BX [place] INJECTION, PERFLUTREN LIPID MICROSPHERES, PER ML [place] TTE W/DOPPLER, COMPLETE [address] [place] IV PUSH SINGLE, INITIAL S UBSTANCE [place] TTE W/DOPPLER, COMPLETE [place] TTE W/DOPPLER, COMPLETE HC US GUIDE FOR PERICARDIOCENTESIS HC ECHO MYOCARD BX HC IV PUSH SINGLE, INITIAL SUBSTANCE HC STATISTIC IV PUSH SINGLE INITIAL SUBSTANCE [place] [address] [place], [place] HC ECHO COMPLETE W DOPPLER W CONTRAST HC ECHO COMPLETE W DOPPLER W/O CONTRAST [address] Phone: Fax: Referral ID Status Reason Start Date Expiration Date Visits Requ ested Visits Authorized [id number] Closed 09/02/2020 09/02/2021 1 1 Reason for Visit Reason Comments Atrial Fib (Routine) - Closed Specialty Diagnoses / Procedures Referred By Contact Refer red To Contact Diagnoses Paroxysmal atrial fibrillation (H) Chronic diastolic congestive heart failure (H) Essential hypertension Deep vein thrombosis (DVT) of left lower extremity, unspecified chronicity, unspecified vein (H) Ivis Akers DO [address] [place] [address] Referral ID Status Reason Start Date Expiration Date Visits Requ ested Visits Authorized [id number] Closed 09/03/2019 09/02/2020 1 1 Encounter Details Date Type Department Care Team Description 09/02/2020 Office Visit [facility] KylemiguelTyler DO [address] [place] [id number] Chronic diastolic congestive heart failu re (H) (Primary Dx); Heart Clinic Ayala Lemos APRN [facility] [address] [place] [id number] Shortness of breath; [place] Essential hypertension; [address] Hyperli pidemia LDL goal <100 [address] [place] [address] Social History Tobacco Use Types Packs/Day Years [...] Sign Reading Time Taken Comments Blood Pressure 124/76 09/02/2020 1:50 PM CDT Pulse 68 09/02/2020 1:50 PM CDT Temperature - - Respiratory Rate - - Oxygen Saturation - - Inhaled Oxygen Concentration - - Weight 84.3 kg (185 lb 14.4 oz) 09/02/2020 1:50 PM CDT Height 154.9 cm (5' 1) 09/02/2020 1:50 PM CDT Body Mass Index 35.13 09/02/2020 1:50 PM CDT documented in this encounter Patient Instructions Patient InstructionsChAyala waite APRN CNP - 09/02/2020 1:50 PM CDT Thanks for participating in a office visit with the [facility] Heart clinic today. Worsening shortness of breath, weight gain, and leg swelling. Increase lasix to 40 mg daily Follow up BMP in 1 week at PCP office BNP today Follow up echocardiogram for structural evaluation. Blood pressures well controlled No recurrent palpitations. Continue on current medical therapy. Follow up in 1 month with MARJ Please call my nurse at [phone] with any questions or concerns. Scheduling phone number: [phone] Reminder: Please bring in all current medications, over the counter supplements and vitamin bottles to your next appointment. documented in this encounter Progress Notes Ayala Lemos APRN CNP - 09/02/2020 1:50 PM CDT Cardiology Clinic Progress Note Racquel Cheema Date of : 1945 Age: [age] year old Reason For Visit: Annual follow-up Primary Fixed Income Manager: Dr. Akers History of Presenting Illness: Racquel Cheema is a pleasant 74 year old patient who carries a past medical history significant forhypertension, HFpEF, DVT, untreated sleep apnea, DVT and postoperative atrial fibrillation after ventral hernia repair, off anticoagulation due to no recurrence. She returns to the office today for annual follow up. Over the last year, she has noticed a progression in her exertional shortness of breath, 20 pound weight gain, and bilateral lower extremity edema. She denies chest pain, PND, orthopnea, presyncope, syncope, edema, heart racing, or palpitations. Upon exam, lungs are clear bilaterally, heart rate and rhythm regular, no JVD or abdominal distention. She is noted to have 1+ pitting lower extremity edema,tender to the touch. In 2019 she underwent a dobutamine stress echo that showed no inducible ischemia, normal ejection fraction, and mild tricuspid regurgitation. Blood pressure is well controlled at 124/76 Recent labs (done w/ Guruina on 07/22/2020) showed a potassium of 4.0, sodium 141, creatinine 0.8 and BUN 16 Hemoglobin 13.3, WBC 4.3, and platelet 262 Lipid panel showed a total cholesterol of 176, HDL 56, LDL 81, and triglycerides 193 on simvastatin. BMI 35.13 She does not engage in any routine exercise Remains compliant with all medications. Assessment and Plan: 1. Heart failure with preserved ejection fraction -up approximately 20 pounds over the last year, 1+pitting bilateral lower extremity edema, and exertional shortness of breath. Last echocardiogram in 2019 showed a normal ejection fraction estimated at greater than 70%, and mild tricuspid regurgitation. Recommend follow-up echocardiogram for evaluation. BNP today. I recommend she increase her Lasix to 40 mg daily with a follow-up BMP in 1 week. Daily weights. Notify office with a 3 pound weight gainovernight or 5 pound weight gain in 1 week. Strict low-sodium diet. 2. Hypertension -well controlled on metoprolol and Lasix 3. Hyperlipidemia -LDL at goal, on statin Thank you for allowing me to participate in this delightful patient's care. I have recommended she follow up in 1 month with MARJ for review of results and clinical reassessment. Ayala Lemos APRN [facility] Review of Systems: Review of Systems: Skin: Positive for pigmentation Eyes: Positive for glasses ENT: Positive for hearing loss Respiratory: Positive for dyspnea on exertion Cardiovascular: Positive for;chest pain;lightheadedness;edema;fatigue Gastroenterology: Positive for abdominal pain Genitourinary: Positive for urinary frequency;urgency Musculoskeletal: Positive for arthritis;joint pain Neurologic: Positive for headaches;numbness or tingling of feet Psychiatric: not assessed Heme/Lymph/Imm: Positive for allergies [...] soft, nontender, nondistended. No HSM appreciated. EXTREM: 1+ bilateral LE edema. No cyanosis or clubbing. [...] DO [address] [place] [id number] (Wo rk) Scheduled Referrals Name Type Priority Associated Diagnoses Order S chedule Follow-Up with Cardiac Referral Routine Chronic diastolic Expected: 10/03/2020 [facility] congestive heart failur e (Approximate), Provider (H) Expires: 09/02/2021 Shortness of breath documented as of this encounter Results (ABNORMAL) Basic metabolic panel (09/20/2020 3:12 PM CDT) athologist Signature Sodium 134 133 - 144 09/20/2020 [facility] mmol/L 4:24 PM [facility] Potassium 4.0 3.4 - 5.3 09/20/2020 [facility] mmol/L 4:24 PM [facility] Chloride 100 94 - 109 09/20/2020 [facility] mmol/L 4:24 PM [facility] Carbon Dioxide 32 20 - 32 09/20/2020 [facility] mmol/L 4:29 PM [facility] Anion Gap 2 (L) 3 - 14 09/20/2020 [place] mmol/L 4:29 PM [facility] Glucose 85 70 - 99 09/20/2020 [place] mg/dL 4:29 PM [facility] Urea Nitrogen 16 7 - 30 09/20/2020 [facility] mg/dL 4:29 PM [facility] Creatinine 0.69 0.52 - 09/20/2020 [facility] 1.04 mg/dL 4:29 PM [facility] GFR Estimate 85 >60 09/20/2020 [place] mL/min/{1. 4:29 PM [facility] 73_m2} [facility] Comment: Non GFR Calc Starting 04/08/2018, serum creatinine ba sed estimated GFR (eGFR) will be calculated using the Chronic Kidney Dise [facility] Epidemiology Collaboration (CKD-EPI) equation. GFR Estimate If >90 >60 mL/min/{1.73_m2} 09/20/2020 4: 29 PM [facility] Comment: GFR Calc Starting 04/08/2018, serum creatinine ba sed estimated GFR (eGFR) will be calculated using the Chronic Kidney Dise [facility] Epidemiology Collaboration (CKD-EPI) equation. Calcium 8.7 8.5 - 10.1 mg/dL 09/20/2020 4:29 PM [facility] Specimen Anatomical Collection Method Collection Time Receive d Time (Source) Location / / Volume Laterality Blood 09/20/2020 3:12 PM 3:15 CDT PM CDT Ayala Lemos APRN [facility] LAB - BLOOD ORDERABLES Performing Organization Address [facility] Phon e Number M [facility] [address], [place] [address] [facility] [address] [place], [place] [address] 7, [facility] [phone] (ABNORMAL) N terminal pro BNP outpatient (09/20/2020 3:12 PM CDT) P athologist Signature N-Terminal Pro 850 (H) 0 - 125 09/20/2020 [place] Bnp pg/mL 4:34 PM CDT [facility] Comment: Reference range shown and results flagge d as abnormal are for the outpatient, non acute settings. Establishing a basel ine value for each individual patient is useful for follow-up. Suggested inpatient cut points for confi rming diagnosis of CHF in an acute setting are: >450 pg/mL (age 18 to less than 50) >900 pg/mL (age 50 to less than 75) >1800 pg/mL (75 yrs and older) An inpatient or emergency department NT- proPBNP <300 pg/mL effectively rules out acute CHF, with 99% negative predict belkis value. Specimen Anatomical Collection Method Collection Time Receive d Time (Source) Location / / Volume Laterality Blood 09/20/2020 3:12 PM 3:15 CDT PM CDT Ayala Lemos APRN [facility] LAB - BLOOD ORDERABLES Performing Organization Address [facility] Phon e Number M [facility] [address], [place] [address] [facility] [address] [place], [place] [address], [facility] [phone] ECHO COMPLETE (09/20/2020 2:56 PM CDT) Anatomical Region Laterality Modality Echocardiography Specimen (Source) Anatomical Collection Method Collection Time Re ceived Time Location / / Volume Laterality 09/20/2020 2:41 PM CDT Narrative 09/20/2020 4:03 PM CDT [id number]^MARCO^[facility] Echocardi[facility] [address] [place] [address] Name: RACQUEL CHEEMA : 1945 Study Date: 09/20/2020 02:41 PM Age: 74 yrs Gender: Female Patient Location: [facility] Reason For Study: Chronic diastolic bowen estive heart failure (H) Ordering Physician: AYALA LEMOS Referring Physician: Sandie Rojo enter Performed By: Norman Sky RDCS BSA: 1.8 m2 Height: 61 in Weight: 185 lb HR: 62 BP: 138/76 mmHg Procedure Complete Echo Adult. Interpretation Summary The visual ejection fraction is estimate d at 65-70%. Left ventricular systolic function is no rmal. There is mild (1+) aortic regurgitation. Grade III or advanced diastolic dysfunct ion. Left Ventricle The left ventricle is normal in size. Th ere is normal left ventricular wall thickness. A sigmoid septum is present. Diastolic Doppler findings (E/E' ratio and/or other parameters) suggest left ve ntricular filling pressures are increased. The visual ejection fraction is estimated at 65-70%. Left ventricular systolic function is normal. Grade III or advanced diastolic dysfunction. Right Ventricle The right ventricle is normal in size an d function. Atria The left atrium is mildly dilated. Right atrial size is normal. There is no color Doppler evidence of an atrial shun t. Mitral Valve There is mild mitral annular calcificati on. There is mild (1+) mitral regurgitation. Tricuspid Valve There is trace tricuspid regurgitation. The right ventricular systolic pressure is approximated at 40mmHg plus the right atrial pressure. Right ventricular systolic pressure is elevate d, consistent with mild pulmonary hypertension. Aortic Valve The aortic valve is trileaflet. There is mild (1+) aortic regurgitation. No hemodynamically significant valvular aor tic stenosis. Pulmonic Valve There is no pulmonic valvular regurgitat ion. Vessels The aortic root is normal size. Normal s ize ascending aorta. Inferior vena cava not well visualized for estimation of right atrial pressure. Pericardium There is no pericardial effusion. Rhythm The rhythm was sinus bradycardia. MMode/2D Measurements & Calculations IVSd: 1.1 cm LVIDd: 4.7 cm LVIDs: 2.0 cm LVPWd: 1.1 cm FS: 57.5 % LV mass(C)d: 178.3 grams LV mass(C)dI: 97.6 grams/m2 Ao root diam: 3.2 cm LA dimension: 4.0 cm asc Aorta Diam: 3.4 cm LA/Ao: 1.2 LVOT diam: 1.8 cm LVOT area: 2.6 cm2 LA Volume (BP): 66.0 ml LA Volume Index (BP): 36.1 ml/m2 RWT: 0.46 Time Measurements Aortic HR: 52.0 BPM Doppler Measurements & Calculations MV E max amanuel: 97.7 cm/sec MV A max amanuel: 48.4 cm/sec MV E/A: 2.0 MV dec time: 0.16 sec AI P1/2t: 695.7 msec LV V1 max P.8 mmHg LV V1 max: 82.9 cm/sec LV V1 VTI: 23.0 cm CO(LVOT): 3.1 l/min CI(LVOT): 1.7 l/min/m2 SV(LVOT): 60.1 ml SI(LVOT): 32.9 ml/m2 PA acc time: 0.10 sec TR max amanuel: 305.7 cm/sec TR max P.4 mmHg E/E' av.3 Lateral E/e': 11.9 Medial E/e': 18.6 Report approved by: Malaika Sharp 09/20/2020 04:03 PM Procedure Note Phil Castaneda MD - 021 [id number]^MARCO^AYALA [facility] Echocardiography Laboratory [address] [place] [id number] Name: RACQUEL CHEEMA : 1945 Study Date: 09/20/2020 02:41 PM Age: 74 yrs Gender: Female Patient Location: [facility] Reason For Study: Chronic diastolic bowen estive heart failure (H) Ordering Physician: AYALA LEMOS Referring Physician: Sandie Rojo enter Performed By: Norman Sky RDCS BSA: 1.8 m2 Height: 61 in Weight: 185 lb HR: 62 BP: 138/76 mmHg Procedure Complete Echo Adult. Interpretation Summary The visual ejection fraction is estimate d at 65-70%. Left ventricular systolic function is no rmal. There is mild (1+) aortic regurgitation. Grade III or advanced diastolic dysfunct ion. Left Ventricle The left ventricle is normal in size. Th ere is normal left ventricular wall thickness. A sigmoid septum is present. Diastolic Doppler findings (E/E' ratio and/or other parameters) suggest left ve ntricular filling pressures are increased. The visual ejection fraction is estimated at 65-70%. Left ventricular systolic function is normal. Grade III or advanced diastolic dysfunction. Right Ventricle The right ventricle is normal in size an d function. Atria The left atrium is mildly dilated. Right atrial size is normal. There is no color Doppler evidence of an atrial shun t. Mitral Valve There is mild mitral annular calcificati on. There is mild (1+) mitral regurgitation. Tricuspid Valve There is trace tricuspid regurgitation. The right ventricular systolic pressure is approximated at 40mmHg plus the right atrial pressure. Right ventricular systolic pressure is elevate d, consistent with mild pulmonary hypertension. Aortic Valve The aortic valve is trileaflet. There is mild (1+) aortic regurgitation. No hemodynamically significant valvular aor tic stenosis. Pulmonic Valve There is no pulmonic valvular regurgitat ion. Vessels The aortic root is normal size. Normal s ize ascending aorta. Inferior vena cava not well visualized for estimation of right atrial pressure. Pericardium There is no pericardial effusion. Rhythm The rhythm was sinus bradycardia. MMode/2D Measurements & Calculations IVSd: 1.1 cm LVIDd: 4.7 cm LVIDs: 2.0 cm LVPWd: 1.1 cm FS: 57.5 % LV mass(C)d: 178.3 grams LV mass(C)dI: 97.6 grams/m2 Ao root diam: 3.2 cm LA dimension: 4.0 cm asc Aorta Diam: 3.4 cm LA/Ao: 1.2 LVOT diam: 1.8 cm LVOT area: 2.6 cm2 LA Volume (BP): 66.0 ml LA Volume Index (BP): 36.1 ml/m2 RWT: 0.46 Time Measurements Aortic HR: 52.0 BPM Doppler Measurements & Calculations MV E max amanuel: 97.7 cm/sec MV A max amanuel: 48.4 cm/sec MV E/A: 2.0 MV dec time: 0.16 sec AI P1/2t: 695.7 msec LV V1 max P.8 mmHg LV V1 max: 82.9 cm/sec LV V1 VTI: 23.0 cm CO(LVOT): 3.1 l/min CI(LVOT): 1.7 l/min/m2 SV(LVOT): 60.1 ml SI(LVOT): 32.9 ml/m2 PA acc time: 0.10 sec TR max amanuel: 305.7 cm/sec TR max P.4 mmHg E/E' av.3 Lateral E/e': 11.9 Medial E/e': 18.6 Report approved by: Malaika Sharp 09/20/2020 04:03 PM Ayala Lemos APRN [facility] CV ECHO ORDERABLES documented in this encounter Visit Diagnoses Diagnosis Chronic diastolic congestive heart failu re (H) - Primary Chronic diastolic heart failure Shortness of breath Essential hypertension Unspecified essential hypertension Hyperlipidemia LDL goal <100 Other and unspecified hyperlipidemia Chronic diastolic congestive heart failu re (H) Chronic diastolic heart failure documented in this encounter Care Teams Armature Winder Helper Repair Relationship Specialty Start Date End Date [facility] PCP - General 01/27/16 1 Medical [address] [place], [place] [id number] Ivis Akers Assigned Heart and Vascular 02/12/20 10/01/20 DO Shira Provider [address] [place], [place] [address] Yesenia Granger MD Assigned Surgical Provider 03/13/20 420 [facility] [address] [place] [address] documented as of this encounter
--- OUTSIDE RECORDS SUMMARY | 2022-02-20 21:13 | XMS_ITS | Encounter Summary ---
:1945 Author Organization [place] Address [address] [place] [address]. [place] [address] Care Team Providers Name Role Phone [place] Primary Care Provider [phone] Ivis Akers DO Unavailable [phone] Yesenia Granger MD Unavailable Eloise Malave MD Primary Care Provider Ayala Lemos APRN [employer] Unavailable [phone] Malina Parra MD Unavailable Tiffanie Lomeli PA-C Unavailable [phone] Ivis Akers DO Unavailable [phone] Reason for Visit Reason Onset Date Comments Appointment 03/09/2020 cysto/pelvic exam Encounter Details Date Type Department Care Team Description 03/09/2020 Telephone [facility] Yesenia Granger [facility] Linda Maria MD (cysto/pelvic exam) [address] [facility] [address] [facility] [address] [facility] [address] [place] [address] [place], [place] [phone] [address] (Wo rk) Social History Tobacco Use Types Packs/Day Years Used Date Smoking Tobacco: Never Smokeless Tobacco: Never Alcohol Use Standard Drinks/Week Comments No 0 (1 standard drink = 0.6 oz pure alcoho l) Sex Assigned at Date Recorded Not on file documented as of this encounter Miscellaneous Notes Telephone Encounter - Alayna Knight - 03/09/2020 1:39 PM CST [facility] Phone Message May a detailed message be left on voicemail: yes Reason for Call: Other: pt is calling to schedule a cysto and pelvic exam per 's order, sending encounter to schedule,please call racquel on her cell, thanks Action Taken: Message routed to: [facility] uro Travel Screening: Not Applicable F LENDING OFFICER documented in this encounter Plan of Treatment Upcoming Encounters Date Type Specialty Care Team Description 05/16/2022 Office Visit Cardiology Jorge Luis Akers DO [address] [place] [id number] (Wo rk) documented as of this encounter Visit Diagnoses Not on filedocumented in this encounter Care Teams Oil Gauger Relationship Specialty Start Date End Date [facility] PCP - General 01/27/16 1 Medical [address] [place] [address] Eloise Malave MD PCP - General Family Medicine 10/07/20 [facility] [address] [place] [address] Ivis Akers Assigned Heart and 02/12/2010/01 DO Shira Vascular Provider [address] [place] [id number] Yesenia Granger See Assigned Surgical 03/13/20 2 MD Crow Provider 420 [facility] [address] [place] [address] Ayala Lemos, Assigned Heart and 10/02/20 [facility] Vascular Provider [address] [place] [place] [id number] Malina Parra Assigned Sleep 11/27/20 12/31/20 MD Gio Provider [address] [place] [address] Tiffanie Lomeli Assigned Sleep 01/01/21 RAOUL Garcia Provider [address] [place] [address] Ivis Akers MD Cardiovascular Disease 01/05/22 DO Shira [address] [place] [address] documented as of this encounter
--- OUTSIDE RECORDS SUMMARY | 2022-02-20 21:13 | XMS_ITS | Encounter Summary ---
:1945 Author Organization [place] Address [address] [place] [address]. [place] [address] Care Team Providers Name Role Phone [facility] Medical Primary Care Provider [phone] Ivis Akers DO Unavailable [phone] Yesenia Granger MD Unavailable Encounter Details Date Type Department Care Team Description 09/20/2020 Travel Social History Tobacco Use Types Packs/Day Years Used Date Smoking Tobacco: Never Smokeless Tobacco: Never Alcohol Use Standard Drinks/Week Comments No 0 (1 standard drink = 0.6 oz pure alcoho l) Sex Assigned at Date Recorded Not on file COVID-19 Exposure Response Date Recorded In the last month, have you been in contact with No / Unsure 09/20/2020 2:25 PM CDT someone who was confirmed or suspected to have Coronavirus / COVID-19? documented as of this encounter Plan of Treatment Upcoming Encounters Date Type Specialty Care Team Description 05/16/2022 Office Visit Cardiology Jorge Luis Akers DO [address] [place] [address] (Wo rk) documented as of this encounter Visit Diagnoses Not on filedocumented in this encounter Care Teams Assembly Machine Feeder Relationship Specialty Start Date End Date [facility] PCP - General 01/27/16 1 Medical [address] [place], [place] [id number] Ivis Akres Assigned Heart and Vascular 02/12/20 10/01/20 DO Shira Provider [address] [place] [address] Yesenia Granger MD Assigned Surgical Provider 03/13/20 420 [facility] [address] [place] [address] documented as of this encounter
--- OUTSIDE RECORDS SUMMARY | 2022-02-20 21:13 | XMS_ITS | Encounter Summary ---
:1945 Author Organization [place] Address [address] [place] [address]. [place] [address] Care Team Providers Name Role Phone [facility] Medical Primary Care Provider [phone] Ivis Akers DO Unavailable [phone] Encounter Details Date Type Department Care Team Description 03/03/2020 Medical Correspondence [facility] Scan, CLINIC REFERRAL Health Info Mgmt Non-Provider [facility] [address] [place] [address] Social History Tobacco Use Types Packs/Day Years [...] Akers DO [address] [place] [address] (Wo rk) documented as of this encounter Visit Diagnoses Not on filedocumented in this encounter Care Teams Art Educator Relationship Specialty Start Date End Date [facility] PCP - General 01/27/16 6 1 Medical [address] [place] [address] Ivis Akers Assigned Heart and Vascular 02/12/20 10/01/20 DO Shira Provider [address] [place] [address] documented as of this encounter
--- OUTSIDE RECORDS SUMMARY | 2022-02-20 21:13 | XMS_ITS | Encounter Summary ---
:1945 Author Organization [place] Address [facility] [place] [address] Care Team Providers Name Role Phone [facility] Primary Care Provider [phone] Ivis Akers DO Unavailable [phone] Reason for Visit Reason Comments Hematuria urgency and incontience Consultation (Routine) - Closed Specialty Diagnoses / Procedures Referred By Contact Refer red To Contact Urology Diagnoses Hematuria Generic External Data [facility] [address] [place] [address] 4th [place] [address] Phone: Fax: Referral ID Status Reason Start Date Expiration Date Visits Requ ested Visits Authorized [id number] Closed 03/03/2020 03/03/2021 1 1 Encounter Details Date Type Department Care Team Description 03/09/2020 Virtual Visit [facility] Hunter Abdalla [facility] [address] [place] [address] Microscopic hematuria (Primary Dx); Urology Clinic Yesenia Ibanez MD [address] [facility] [address] [place] [address] Mixed incontinence [address] [facility] [address] [place] [address] Social History Tobacco Use Types Packs/Day Years Used Date Smoking Tobacco: Never Smokeless Tobacco: Never Alcohol Use Standard Drinks/Week Comments No 0 (1 standard drink = 0.6 oz pure alcoho l) Sex Assigned at Date Recorded Not on file documented as of this encounter Last Filed Vital Signs Vital Sign Reading Time Taken Comments Blood Pressure - - Pulse - - Temperature - - Respiratory Rate - - Oxygen Saturation - - Inhaled Oxygen Concentration - - Weight 81.6 kg (180 lb) 03/09/2020 12:25 PM MARKER SHIPMENTS Height 154.9 cm (5' 1) 03/09/2020 12:25 PM MARKER SHIPMENTS Body Mass Index 34.01 03/09/2020 12:25 PM MARKER SHIPMENTS documented in this encounter Patient Instructions Patient InstructionsFoYesenia francisco MD - 03/09/2020 1:30 PM CST Images from the original note were not included. Please return for a cystoscopy (procedure to look in the bladder) and pelvic exam [facility] [address] 3rd floor or [place] [address] [address] 5th floor Clinic phone number [phone] It was a pleasure meeting with you today. Thank you for allowing me and my team the privilege of caring for you today. YOU are the reason we are here, and I truly hope we provided you with the excellent service you deserve. Please let us know if there is anything else we can do for you so that we can be sure you are leaving completely satisfied with your care experience. Cystoscopy Cystoscopy is a procedure that lets your doctor look directly inside your urethra and bladder. It can be used to: ?? Help diagnose a problem with your urethra, bladder, or kidneys. ?? Take a sample (biopsy) of bladder or urethral tissue. ?? Treat certain problems (such as removing kidney stones). ?? Place a stent to bypass an obstruction. ?? Take special X-rays of the kidneys. Based on the findings, your doctor may recommend other tests or treatments. What is a cystoscope? A cystoscope is a telescope-like instrument that contains lenses and fiberoptics (small glass wires that make bright light). The cystoscope may be straight and rigid, or flexible to bend around curves in the urethra. The doctor may look directly into the cystoscope, or project the image onto a monitor. Getting ready ?? Ask your doctor if you should stop taking any medicines before the procedure. ?? Follow any other instructions your doctor gives you. Tell your??doctor before the exam if you: ?? Take any medicines, such as aspirin or blood thinners ?? Have allergies to any medicines ?? Are The procedure Cystoscopy is done in the doctor???s office, surgery center, or hospital. The doctor and a nurse arepresent during the procedure. It takes only a few minutes, longer if a biopsy, X-ray, or treatment needs to be done. During the procedure: ?? You lie on an exam table on your back, knees bent and legs apart. You are covered with a drape. ?? Your urethra and the area around it are washed. Anesthetic jelly may be applied to numb the urethra. ?? The cystoscope is inserted. A sterile fluid is put into the bladder to expand it. You may feel pressure from this fluid. ?? When the procedure is done, the cystoscope is removed. After the procedure Once you???re home: ?? Drink plenty of fluids. ?? You may have burning or light bleeding when you urinate--this is normal. ?? Medicines may be prescribed to ease any discomfort or prevent infection. Take these as directed. ?? Call your doctor if you have heavy bleeding or blood clots, burning that lasts more than a day, afever over??100??F?? (38?? C), or trouble urinating. Date Last Reviewed: 04/22/2016 ?? [id number] [employer]. [address] [place] [address]. All rights reserved. This information is not intended as a substitute for professional medical care. Always follow your healthcare professional's instructions. ER SHIPMENTS documented in this encounter Progress Notes Yesenia Granger MD - 03/09/2020 1:30 PM CST March 09, 2020 Racquel Jones is a 74 year old female who is being evaluated via a billable video visit. The patient has been notified of following: This video visit will be conducted via a call between you and your physician/provider. We have found that certain health care needs can be provided without the need for an in-person physical exam. This service lets us provide the care you need with a video conversation. If a prescription is necessarywe can send it directly to your pharmacy. If lab work is needed we can place an order for that and you can then stop by our lab to have the test done at a later time. Video visits are billed at different rates depending on your insurance coverage. Please reach out toyour insurance provider with any questions. If during the course of the call the physician/provider feels a video visit is not appropriate, you will not be charged for this service. Patient has given verbal consent for Video visit? Yes How would you like to obtain your AVS? Mail a copy If you are dropped from the video visit, the video invite should be resent to: Text to cell phone: [phone] Will anyone else be joining your video visit? Nicole Aguilar CMA Video-Visit Details Type of service: Video Visit Video Start Time: 1317 Video End Time: 1:33 PM Originating Location (pt. Location): Home Distant Location (provider location): [facility] [place] Platform used for Video Visit: Bailey Referring Provider: [place] [address] Primary Care Provider: [facility] CC: Blood on a urine test HPI: Racquel Jones is a 74 year old female who presents for evaluation of her pelvic floor symptoms. She is seeing us as she has had blood on recent urine tests. She also has mixed urinary incontinence Miralax daily for constipation and bowel issues since her ventral hernia surgery last year. States that stool is soft but not formed Denies gross hematuria, UTI, vaginal bleeding, vaginal bulge (but was told something has fallen) Her brother had prostate cancer and her son with prostate cancer. She denies any chemical exposures,foreign travel, tobacco use or any other risk factors for her Past Medical History: Diagnosis Date ??? Hernia, abdominal ??? Hyperlipemia ??? Hypertension ??? Osteoporosis Past Surgical History: Procedure Laterality Date ??? EYE SURGERY ??? HERNIA REPAIR ??? ORTHOPEDIC SURGERY Social History Socioeconomic History ??? Marital status: Spouse name: Not on file ??? Number of children: Not on file ??? Years of education: Not on file ??? Highest education level: Not on file Occupational History ??? Not on file Social Needs ??? Financial resource strain: Not on file ??? Food insecurity Worry: Not on file Inability: Not on file ??? Transportation needs Medical: Not on file Non-medical: Not on file Tobacco Use ??? Smoking status: Never Smoker ??? Smokeless tobacco: Never Used Substance and Sexual Activity ??? Alcohol use: No ??? Drug use: No ??? Sexual activity: Not on file Lifestyle ??? Physical activity Days per week: Not on file Minutes per session: Not on file ??? Stress: Not on file Relationships ??? Social connections Talks on phone: Not on file Gets together: Not on file Attends gnosticism service: Not on file Active member of club or organization: Not on file Attends meetings of clubs or organizations: Not on file Relationship status: Not on file ??? Intimate partner violence Fear of current or ex partner: Not on file Emotionally abused: Not on file Physically abused: Not on file Forced sexual activity: Not on file Other Topics Concern ??? Parent/sibling w/ CABG, OK or angioplasty before 65F 55M? Not Asked Social History Narrative ??? Not on file Family History Problem Relation Age of Onset ??? Cancer Mother ??? Cancer Father ??? Diabetes Father ??? Diabetes Brother ROS Allergies Allergen Reactions ??? Amoxicillin Nausea ??? Sulfa Drugs Current Outpatient Medications Medication ??? cholecalciferol (VITAMIN D-[address]) 25 MCG (1000 UT) TABS ??? escitalopram (LEXAPRO) 10 MG tablet ??? famotidine (PEPCID) 20 MG tablet ??? furosemide (LASIX) 40 MG tablet ??? metoprolol succinate ER (TOPROL-XL) 50 MG 24 hr tablet ??? omega 3 1000 MG CAPS ??? potassium chloride SA (K-DUR/KLOR-CON M) 20 MEQ CR tablet ??? simvastatin (ZOCOR) 40 MG tablet ??? omeprazole (PRILOSEC) [address] capsule No current facility-administered medications for this visit. Ht 1.549 m (5' 1) Wt 81.6 kg (180 lb) BMI 34.01 kg/m?? No LMP recorded. Body mass index is 34.01 kg/m??. GENERAL: healthy, alert and no distress EYES: Eyes grossly normal to inspection, conjunctivae and sclerae normal HENT: normal cephalic/atraumatic. External ears, nose and mouth without ulcers or lesions. RESP: no audible wheeze, cough, or visible cyanosis. No visible retractions or increased work of breathing. Able to speak fully in complete sentences. NEURO: Cranial nerves grossly intact, mentation intact and speech normal PSYCH: mentation appears normal, affect normal/bright, judgement and insight intact, normal speech and appearance well-groomed CT urogram was done in [place]-report notes normal urinary tract without obvious etiology of the hematuria. She also has ventral mesh hernia and an RIH A/P: Racquel Jones is a 74 year old F with mixed urinary incontinence, reports history of microscopic hematuria We discussed the etiologies of microscopic hematuria to include but not limited to infection, nephrolithiasis, urologic malignancy, renal disease and idiopathic. At this time she is has done most of the evaluation so will have her return for cystoscopy, she prefers to do this in [place]. Yesenia Granger MD MPH Senior Java Engineer Urology CC Patient Care Team: [facility] as PCP - General Ivis Akers DO as Assigned Heart and Vascular Provider CLARA ABDALLA ER SHIPMENTS documented in this encounter Plan of Treatment Upcoming Encounters Date Type Specialty Care Team Description 05/16/2022 Office Visit Cardiology Jorge Luis Akers DO [address] [place] [address] (Wo rk) documented as of this encounter Visit Diagnoses Diagnosis Microscopic hematuria - Primary Mixed incontinence Mixed incontinence urge and stress (male )(female) documented in this encounter Care Teams Machine Stuffer Relationship Specialty Start Date End Date [facility] PCP - General 01/27/16 1 Medical [address] [place] [id number] Ivis Akers Assigned Heart and Vascular 02/12/20 10/01/20 DO Shira Provider [address] [place] [address] documented as of this encounter
--- OUTSIDE RECORDS SUMMARY | 2022-02-20 21:13 | XMS_ITS | Encounter Summary ---
:1945 Author Organization [place] Address [address] [place] [address] Care Team Providers Name Role Phone Yesenia Granger MD Unavailable Eloise Malave MD Primary Care Provider Ayala Lemos APRN SUEDING MACHINE OPERATOR Unavailable [phone] Reason for Referral (Routine) - Closed Specialty Diagnoses / Procedures Referred By Contact Refer red To Contact Diagnoses Chronic diastolic congestive heart failure (H) Shortness of breath RAFAEL (obstructive sleep apnea) Essential hypertension Hyperlipidemia LDL goal <100 Ayala Lemos APRN SUEDING MACHINE OPERATOR [address] [place] [address] Referral ID Status Reason Start Date Expiration Date Visits Requ ested Visits Authorized [id number] Closed 10/07/2020 10/07/2021 1 1 (Routine) - Closed Specialty Diagnoses / Procedures Referred By Contact Refer red To Contact Diagnoses RAFAEL (obstructive sleep apnea) Ayala Lemos APRN SUEDING MACHINE OPERATOR [address] [address] Referral ID Status Reason Start Date Expiration Date Visits Requ ested Visits Authorized [id number] Closed 10/07/2020 10/07/2021 1 1 Reason for Visit Reason Comments Follow Up 09/20/20 Echo (Routine) - Closed Specialty Diagnoses / Procedures Referred By Contact Refer red To Contact Diagnoses Chronic diastolic congestive heart failure (H) Shortness of breath Ayala Lemos APRN CNP [address] [place] [address] Referral ID Status Reason Start Date Expiration Date Visits Requ ested Visits Authorized [id number] Closed 09/02/2020 09/02/2021 1 1 Encounter Details Date Type Department Care Team Description 10/07/2020 Office Visit [facility] AmintaCelsa di astolic congestive heart failure (H) (Primary Dx); Heart Clinic MARIELA Cai CNP Shortness of breath; [place] [address] RAFAEL (obstructive sleep apnea ); [address] [employer] Essential hypertension; [address] [place] [address] Hyperlipidemia LDL goal <100 [place], [place] [phone] [address] (Work) [phone] Social History Tobacco Use Types Packs/Day Years [...] Sign Reading Time Taken Comments Blood Pressure 137/78 10/07/2020 1:04 PM CDT Machine Pulse 70 10/07/2020 1:04 PM CDT Temperature - - Respiratory Rate - - Oxygen Saturation 98% 10/07/2020 1:04 PM CDT Inhaled Oxygen Concentration - - Weight 83.1 kg (183 lb 4.8 oz) 10/07/2020 1:04 PM CDT Height 154.9 cm (5' 1) 10/07/2020 1:04 PM CDT Body Mass Index 34.63 10/07/2020 1:04 PM CDT documented in this encounter Patient Instructions Patient InstructionsChAyala waite APRN CNP - 10/07/2020 1:10 PM CDT Thanks for participating in a office visit with the [facility] clinic today. Shortness of breath and leg swelling unchanged with higher dose diuretics Ok to reduce lasix to 20 mg daily. Reviewed result of echocardiogram Day-time fatigue and exertional shortness of breath. Recommend sleep study for evaluation of sleep apnea. Leg edema unchanged - Negative venous US in July Continue on current medical therapy. Follow up in 6 months with MARJ Please call my nurse at [phone] with any questions or concerns. Scheduling phone number: [phone] Reminder: Please bring in all current medications, over the counter supplements and vitamin bottles to your next appointment. documented in this encounter Progress Notes Ayala Lemos APRN CNP - 10/07/2020 1:10 PM CDT Cardiology Clinic Progress Note Racquel Jones Date of : 1945 Age: [age] year old Reason For Visit: 1 month follow up Primary Gamer: Dr. Akers History of Presenting Illness: Racquel Jones is a pleasant 74 year old patient who carries a past medical history significant forhypertension, HFpEF, DVT, untreated sleep apnea, DVT and postoperative atrial fibrillation after ventral hernia repair, off anticoagulation due to no recurrence. She was last seen in 09/02/2020 for progressive exertional shortness of breath, 20 pound weight gain,and bilateral lower extremity edema. Lasix was increased to 40 mg daily. A follow up echocardiogram showed a normal ejection fraction estimated at 65- 70%, mild aortic regurgitation, grade 3 diastolic dysfunction, and normal RV size and function. She returns to the office today for a 1 month follow-up. She reports no improvement in her symptoms, despite uptitration of diuretics. Weight is down ~ 2 lbs. She presents with trace bilateral LE edema with areas of firm tenderness to bilateral calves. Bilateral LE venous US (08/16/2020) showed bilateral vein competence and no evidence of DVT. She denies chest pain, PND, orthopnea, presyncope, syncope, heart racing, or palpitations. She also reports daytime fatigue and restless sleep. She does not recall having a sleep study in the past but did wear a CPAP following hernia surgery. Blood pressure is well controlled at 137/78 Follow-up BMP showed a sodium of 134, potassium 4.0, BUN 16, creatinine 0.69, GFR 85 Last lipid panel showed a total cholesterol of 176, HDL 56, LDL 81, and triglycerides 193 on simvastatin. BMI 35.13 She does not engage in any routine exercise Remains compliant with all medications. Assessment and Plan: 1. Heart failure with preserved ejection fraction - Continues with exertional shortness of breath despite increase in diuretics. Trace bilateral leg swelling w/ firm tender areas to bilateral calves. Bilateral LE venous US (08/16/2020) showed bilateral vein competence and no evidence of DVT. Follow up e chocardiogram showed a normal ejection fraction estimated at 65- 70%, mild aortic regurgitation, grade 3 diastolic dysfunction, and normal RV size and function. Due to intolerance of high dose dose lasix, I will reduce to 20 mg daily. Continue on metoprolol. 2. Hypertension -well controlled on metoprolol and Lasix 3. Hyperlipidemia -LDL at goal, on statin 4. Fatigue/ Hx of sleep apnea - Recommend re-evaluation of sleep apnea. Referral sent to sleep medicine. Thank you for allowing me to participate in this delightful patient's care. I have recommended she follow up in 6 months with MARJ Lemos APRN CNP Review of Systems: Review of Systems: Skin: Positive for pigmentation Eyes: Positive for glasses ENT: Positive for hearing loss Respiratory: Positive for dyspnea on exertion Cardiovascular: Positive for;chest pain;edema;fatigue Gastroenterology: Positive for abdominal pain Genitourinary: Positive for urinary frequency;urgency Musculoskeletal: Positive for arthritis;joint pain;back pain;neck pain Neurologic: Positive for headaches Psychiatric: Positive for excessive stress;anxiety;depression Heme/Lymph/Imm: Positive for allergies Endocrine: Negative Physical Exam: GEN: In general, this is a overweight female in no acute distress. Fatigue HEENT: Pupils equal, round. Sclerae nonicteric. Clear [...] HSM appreciated. EXTREM: Trace bilateral LE edema. Calf tenderness. No cyanosis or clubbing. NEURO: Alert and [...] Visit Cardiology Jorge Luis Akers DO [address] [facility] [address] [place] [address] (Wo rk) Scheduled Referrals Name Type Priority Associated Diagnoses Order S chedule SLEEP EVALUATION & Referral Routine RAFAEL (obstructive sleep Expected: 10/14/2020 MANAGEMENT REFERRAL - apnea) (Appro ximate), ADULT -[facility]: 10/07/2021 [facility] [phone] (Age 18 and up) Follow-Up with Cardiac Referral Routine Chronic diastolic Expected: 04/08/2021 [facility] congestive heart (Appro ximate), Provider failure (H) Expires: 10/07/2021 Shortness of marc ath RAFAEL (obstructive sleep apnea) Essential hypert ension Hyperlipidemia LDL goal <100 documented as of this encounter Visit Diagnoses Diagnosis Chronic diastolic congestive heart failu re (H) - Primary Chronic diastolic heart failure Shortness of breath RAFAEL (obstructive sleep apnea) Obstructive sleep apnea (adult) (pediatr ic) Essential hypertension Unspecified essential hypertension Hyperlipidemia LDL goal <100 Other and unspecified hyperlipidemia documented in this encounter Care Teams Floor Layer Helper Relationship Specialty Start Date End Date Eloise Malave MD PCP - General Family Medicine 10/07/20 [facility] [id number] [place] [address] Yesenia Granger, Assigned Surgical Provider 02/2112/15/21 [address] [facility] [address] [place] [address] Ayala Lemos APRN Assigned Heart and 10/02/20 SUEDING MACHINE OPERATOR Vascular Provider [address] [place] [address] documented as of this encounter
--- OUTSIDE RECORDS SUMMARY | 2022-02-20 21:13 | XMS_ITS | Encounter Summary ---
:1945 Author Organization [place] Address [facility] [place] [address] Care Team Providers Name Role Phone [facility] Primary Care Provider [phone] Ivis Akers DO Unavailable [phone] Yesenia Granger MD Unavailable Encounter Details Date Type Department Care Team Description 09/20/2020 Orders Only [facility] Heart Straight Knife Machine Cutter tran diastolic congestive heart failure (H); [facility] [place] Shortness of breath [address] [facility] [address] [place] [address] Social History Tobacco Use [...] Office Visit Cardiology Jorge Luis Akers DO [address] [address] [place], [place] [address] (Wo rk) documented as of this encounter Procedures Procedure Name Priority Date/Time Associated Comments Diagnosis N TERMINAL PRO BNP Routine 09/20/2020 3:12 PM Chronic diastoli c Results for this OUTPATIENT CDT congestive heart procedure a re in failure (H) the results Shortness of breath section. BASIC METABOLIC Routine 09/20/2020 3:12 PM Chronic diastolic R esults for this PANEL CDT congestive heart procedure a re in failure (H) the results Shortness of breath section. documented in this encounter Results (ABNORMAL) N terminal pro BNP outpatient (09/20/2020 3:12 PM CDT) athologist Signature N-Terminal Pro 850 (H) 0 - 125 09/20/2020 [place] Bnp pg/mL 4:34 PM [facility] Comment: Reference range shown and results flagge [...] 3:15 CDT PM CDT Ayala Lemos APRN SALES AND SERVICE REPRESENTATIVE LAB - BLOOD ORDERABLES Performing Organization Address City/State/ZIP Code Phon e Number M [facility] [address] [place], [place] [address] [facility] [address] [phone] (ABNORMAL) Basic metabolic panel (09/20/2020 3:12 PM CDT) athologist Signature Sodium 134 133 - 144 09/20/2020 [place] mmol/L 4:24 PM [facility] Potassium 4.0 3.4 - 5.3 09/20/2020 [place] mmol/L 4:24 PM [facility] Chloride 100 94 - 109 09/20/2020 [facility] mmol/L 4:24 PM [facility] Carbon Dioxide 32 20 - 32 09/20/2020 [place] mmol/L 4:29 PM [facility] Anion Gap 2 (L) 3 - 14 09/20/2020 [facility] mmol/L 4:29 PM [facility] Glucose 85 70 - 99 09/20/2020 [facility] mg/dL 4:29 PM [facility] Urea Nitrogen 16 7 - 30 09/20/2020 [facility] mg/dL 4:29 PM [facility] Creatinine 0.69 0.52 - 09/20/2020 [facility] 1.04 mg/dL 4:29 PM [facility] GFR Estimate 85 >60 09/20/2020 [facility] mL/min/{1. 4:29 PM [facility] 73_m2} [facility] Comment: Non GFR Calc Starting 04/08/2018, serum creatinine ba sed estimated GFR (eGFR) will be calculated using the Chronic Kidney Dise [facility] Epidemiology Collaboration (CKD-EPI) equation. GFR Estimate If >90 >60 mL/min/{1.73_m2} 09/20/2020 4: [address] [facility] Comment: GFR Calc Starting 04/08/2018, serum creatinine ba sed estimated GFR (eGFR) will be calculated using the Chronic Kidney Dise [facility] Epidemiology Collaboration (CKD-EPI) equation. Calcium 8.7 8.5 - 10.1 mg/dL 09/20/2020 4:29 PM [facility] Specimen Anatomical Collection Method Collection Time Receive d Time (Source) Location / / Volume Laterality Blood 09/20/2020 3:12 PM 3:15 CDT PM CDT Ayala Lemos APRN SALES AND SERVICE REPRESENTATIVE LAB - BLOOD ORDERABLES Performing Organization Address City/State/ZIP Code Phon e Number M [facility] [address], [place] [address] [phone] [facility] [address] [place], [place] [address] [place] [address] documented in this encounter Visit Diagnoses Diagnosis Chronic diastolic congestive heart failu re (H) Chronic diastolic heart failure Shortness of breath documented in this encounter Care Teams Cracker Off Relationship Specialty Start Date End Date [facility] PCP - General 01/27/16 1 Medical [address] [place], [place] [id number] Ivis Akers Assigned Heart and Vascular 02/12/20 10/01/20 DO Shira Provider [address] [place] [address] Yesenia Granger MD Assigned Surgical Provider 03/13/[address] [place] [address] [address] [place] [address] documented as of this encounter
--- OUTSIDE RECORDS SUMMARY | 2022-02-20 21:13 | XMS_ITS | Encounter Summary ---
:1945 Author Organization [place] Address [facility] [address] Care Team Providers Name Role Phone [place] Primary Care Provider [phone] Ivis Akers DO Unavailable [phone] Yesenia Granger MD Unavailable Reason for Referral CV Testing (Routine) - Closed Specialty Diagnoses / Procedures Referred By Contact Refer red To Contact Cardiology Diagnoses Chronic diastolic congestive heart failure (H) Ayala Lemos APRN Rh Cv Cardiac Svc Rscc Procedures Echocardiogram Complete [facility] TTE W/DOPPLER, COMPLETE [facility] ECHO COMPLETE W DOPPLER W CONTRAST [facility] ECHO COMPLETE W DOPPLER W/O CONTRAST [facility] IV PUSH SINGLE, INITIAL SUBSTANCE [facility] US GUIDE FOR PERICARDIOCENTESIS [place] [id number] [facility] ECHO MYOCARD BX ZZC INJECTION, PERFLUTREN LIPID MICROSPHERES, PER ML [facility] STATISTIC IV PUSH SINGLE INITIAL SUBSTANCE PA ECHO MYOCARD BX PA INJECTION, PERFLUTREN LIPID MICROSPHERES, PER ML PA TTE W/DOPPLER, COMPLETE [address] PA IV PUSH SINGLE, INITIAL S UBSTANCE PA TTE W/DOPPLER, COMPLETE PA TTE W/DOPPLER, COMPLETE HC US GUIDE FOR PERICARDIOCENTESIS HC ECHO MYOCARD BX HC IV PUSH SINGLE, INITIAL SUBSTANCE HC STATISTIC IV PUSH SING[place] [address] [place], [place] HC ECHO COMPLETE W DOPPLER W CONTRAST HC ECHO COMPLETE W DOPPLER W/O CONTRAST [address] Phone: Fax: Referral ID Status Reason Start Date Expiration Date Visits Requ ested Visits Authorized [id number] Closed 09/02/2020 09/02/2021 1 1 Reason for Visit CV Testing (Routine) - Closed Specialty Diagnoses / Procedures Referred By Contact Refer red To Contact Cardiology Diagnoses Chronic diastolic congestive heart failure (H) Ayala Lemos APRN Rh Cv Cardiac Svc cc Procedures Echocardiogram Complete [facility] TTE W/DOPPLER, COMPLETE [facility] ECHO COMPLETE W DOPPLER W CONTRAST [facility] ECHO COMPLETE W DOPPLER W/O CONTRAST [facility] IV PUSH SINGLE, INITIAL SUBSTANCE ZZ[facility] US GUIDE FOR PERICARDIOCENTESIS [place] [address] [facility] ECHO MYOCARD BX ZZC INJECTION, PERFLUTREN LIPID MICROSPHERES, PER ML [facility] STATISTIC IV PUSH SINGLE INITIAL SUBSTANCE PA ECHO MYOCARD BX PA INJECTION, PERFLUTREN LIPID MICROSPHERES, PER ML PA TTE W/DOPPLER, COMPLETE [address] PA IV PUSH SINGLE, INITIAL S UBSTANCE PA TTE W/DOPPLER, COMPLETE PA TTE W/DOPPLER, COMPLETE HC US GUIDE FOR PERICARDIOCENTESIS HC ECHO MYOCARD BX HC IV PUSH SINGLE, INITIAL SUBSTANCE HC STATISTIC IV PUSH SINGLE INITIAL SUBSTANCE [place] [address] [place], [place] HC ECHO COMPLETE W DOPPLER W CONTRAST HC ECHO COMPLETE W DOPPLER W/O CONTRAST [address] Phone: Fax: Referral ID Status Reason Start Date Expiration Date Visits Requ ested Visits Authorized [id number] Closed 09/02/2020 09/02/2021 1 1 Encounter Details Date Type Department Care Team Description 09/20/2020 Hospital Encounter [facility] [place] Suha Lemos [facility] MARIELA Cai CNP congestive heart Heart Care [address] failure (H) [address] [place] [address] [place], [place] [phone] [address] (Work) [phone] Social History Tobacco Use Types Packs/Day Years [...] / COVID-19? documented as of this encounter Medications at Time of Discharge Medication Sig Dispensed Refills Start Date End Date cholecalciferol (VITAMIN Take 1,000 Units 0 D-[address]) 25 MCG (1000 by mouth daily UT) TABS escitalopram (LEXAPRO) 10 Take 15 mg by 0 017 MG tablet mouth famotidine (PEPCID) 20 MG Take 20 mg by 0 tablet mouth 2 times daily simvastatin (ZOCOR) 40 MG Take 40 mg by 0 020 tablet mouth daily aspirin 81 MG EC tablet Take 81 mg by 0 01/05/2022 mouth 2 times daily furosemide (LASIX) 20 MG Take 2 tablets (40 60 tablet 3 10/07/2020 tabletIndications: Chronic mg) by mouth daily diastolic congestive heart failure (H) metoprolol succinate ER Take 50 mg by 0 0 12/05/2021 (TOPROL-XL) 50 MG 24 hr mouth daily tablet omega 3 1000 MG CAPS Take 1 g by mouth 0 01/05/2022 daily omeprazole (PRILOSEC) 20 MG Take 20 mg by 0 05/2910/07/2020 DR capsule mouth potassium chloride SA Take 10 mEq by 0 02/09/2017 05/22/2021 (K-DUR/KLOR-CON M) 20 MEQ mouth CR tablet documented as of this encounter Plan of Treatment Upcoming Encounters Date Type Specialty Care Team Description 05/16/2022 Office Visit Cardiology Jorge Luis Akers DO [address] [place] [address] (Wo rk) documented as of this encounter Procedures Procedure Name Priority Date/Time Associated Diagnosis Comme nts ECHO COMPLETE Routine 09/20/2020 2:56 PM Chronic diastolic Res ults for this CDT congestive heart procedure a re in the failure (H) results section . documented in this encounter Results ECHO COMPLETE (09/20/2020 2:56 PM CDT) Anatomical Region Laterality Modality Echocardiography Specimen (Source) Anatomical Collection Method Collection Time Re ceived Time Location / / Volume Laterality 09/20/2020 2:41 PM CDT Narrative 09/20/2020 4:03 PM CDT [id number]^MARCO^AYALA [facility] Echocardiography Laboratory [address] [place] [address] Name: RACQUEL CHEEMA : 1945 Study Date: 09/20/2020 02:41 PM Age: 74 yrs Gender: Female Patient Location: [facility] Reason For Study: Chronic diastolic bowen [...] Procedure Note Phil Castaneda MD - 021 [id number]^MARCO^AYALA [facility] Echocardiography Laboratory [address] [place] [address] Name: RACQUEL CHEEMA : 1945 Study Date: 09/20/2020 02:41 PM Age: 74 yrs Gender: Female Patient Location: [facility] Reason For Study: Chronic diastolic bowen [...] Sharp 09/20/2020 04:03 PM Ayala Lemos APRN PEANUT SORTER CV ECHO ORDERABLES documented in this encounter Visit Diagnoses Diagnosis Chronic diastolic congestive heart failu re (H) Chronic diastolic heart failure documented in this encounter Care Teams Histology Assistant Relationship Specialty Start Date End Date [facility] PCP - General 01/27/16 1 Medical [address] [place], [place] [id number] Ivis Akers Assigned Heart and Vascular 02/12/20 10/01/20 DO Shira Provider [address] [place], [place] [address] Yesenia Granger MD Assigned Surgical Provider 03/13/[address] [place] [address] [address] [place] [address] documented as of this encounter
--- OUTSIDE RECORDS SUMMARY | 2022-02-20 21:13 | XMS_ITS | Encounter Summary ---
:1945 Author Organization [place] Address [address] [place] [address]. [place] [address] Care Team Providers Name Role Phone [facility] Medical Primary Care Provider [phone] Yesenia Granger MD Unavailable Ayala Lemos APRN STAFF TECHNOLOGIST Unavailable [phone] Encounter Details Date Type Department Care Team Description 10/05/2020 Travel Social History Tobacco Use Types Packs/Day Years Used Date Smoking Tobacco: Never Smokeless Tobacco: Never Alcohol Use Standard Drinks/Week Comments No 0 (1 standard drink = 0.6 oz pure alcoho l) Sex Assigned at Date Recorded Not on file COVID-19 Exposure Response Date Recorded In the last month, have you been in contact with No / Unsure 10/05/2020 1:03 PM CDT someone who was confirmed or suspected to have Coronavirus / COVID-19? documented as of this encounter Plan of Treatment Upcoming Encounters Date Type Specialty Care Team Description 05/16/2022 Office Visit Cardiology Jorge Luis Akers DO [address] [place] [address] (Wo rk) documented as of this encounter Visit Diagnoses Not on filedocumented in this encounter Care Teams Distribution Collection Operator Relationship Specialty Start Date End Date [facility] PCP - General 01/27/16 1 Medical [address] [place] [address] Yesenia Granger MD Assigned Surgical Provider 03/13/20 [address] [facility] [address] [place] [address] Ayala Lemos APRN STAFF TECHNOLOGIST Assigned Heart and Vascular 10/02/20 [address] Provider [place] [address] documented as of this encounter
--- OUTSIDE RECORDS SUMMARY | 2022-02-20 21:13 | XMS_ITS | Encounter Summary ---
:1945 Author Organization [place] Address [address] [facility] [place] [address] Care Team Providers Name Role Phone [facility] Primary Care Provider [phone] Ivis Akers DO Unavailable [phone] Yesenia Granger See Crow H[place] Unavailable Reason for Visit Reason Onset Date Comments Call Back 06/14/2020 Pt has appt today an d wants to know how much water she needs to drink before her violetta t. Please contact pt at [phone]. Thank you. Encounter Details Date Type Department Care Team Description 06/14/2020 Telephone [facility] Yesenia Granger See Call B ack (Pt has appt [facility] Linda Maria MD today and wants to [address] know how much water [address] [facility] [address] she needs to drink [place] [address] [place], [place] before her appt. [phone] [address] Please contact pt at [phone] (Wo rk) [phone]. Thank you.) Social History Tobacco Use Types Packs/Day Years Used Date Smoking Tobacco: Never Smokeless Tobacco: Never Alcohol Use Standard Drinks/Week Comments No 0 (1 standard drink = 0.6 oz pure alcoho l) Sex Assigned at Date Recorded Not on file COVID-19 Exposure Response Date Recorded In the last month, have you been in contact with No / Unsure 06/14/2020 10:09 AM JUTE BAG CUTTING MACHINE OPERATOR someone who was confirmed or suspected to have Coronavirus / COVID-19? documented as of this encounter Miscellaneous Notes Telephone Encounter - Yolanda Aguilar CMA - 06/14/2020 8:49 AM CST I called and informed pt she only needs to drink enough water to be able to leave a urine sample when she comes to the office today. Felicia Aguilar CMA BAG CUTTING MACHINE OPERATOR Telephone Encounter - Charmaine Gutierrez - 06/14/2020 8:33 AM CST [facility] Call Center Phone Message May a detailed message be left on voicemail: yes Reason for Call: Other: Pt has appt today and wants to know how much water she needs to drink beforeher appt. Please contact pt at [phone]. Thank you. Action Taken: Message routed to: [facility] [place] Travel Screening: Not Applicable BAG CUTTING MACHINE OPERATOR documented in this encounter Plan of Treatment Upcoming Encounters Date Type Specialty Care Team Description 05/16/2022 Office Visit Cardiology Jorge Luis Akers DO [address] [place] [address] (Wo rk) documented as of this encounter Visit Diagnoses Not on filedocumented in this encounter Care Teams Strategic Partner Development Manager Relationship Specialty Start Date End Date [facility] PCP - General 01/27/16 1 Medical [address] [place], [place] [phone] Ivis Akers Assigned Heart and Vascular 02/12/20 10/01/20 DO Shira Provider [address] [place] [address] Yesenia Granger MD Assigned Surgical Provider 03/13/[address] [place] [address] [address] [place], [place] [address] documented as of this encounter
--- OUTSIDE RECORDS SUMMARY | 2022-02-20 21:13 | XMS_ITS | Encounter Summary ---
:1945 Author Organization [place] Address [address] [facility] [place] [address] Care Team Providers Name Role Phone [facility] Primary Care Provider [phone] Ivis Akers DO Unavailable [phone] Yesenia Granger MD Unavailable Encounter Details Date Type Department Care Team Description 05/16/2020 Telephone [facility] Women's Yesenia Granger, [facility] [place] [address], [place] [address] [facility] [address] [place] [facility] [address] [place] [address] 4-1437 [phone] Social History Tobacco Use Types Packs/Day Years Used Date Smoking Tobacco: Never Smokeless Tobacco: Never Alcohol Use Standard Drinks/Week Comments No 0 (1 standard drink = 0.6 oz pure alcoho l) Sex Assigned at Date Recorded Not on file documented as of this encounter Miscellaneous Notes Telephone Encounter - Yolanda Aguilar CMA - 05/16/2020 11:04 AM CST Tried to call pt for appt tomorrow. No answer.... just rang and rang. DTeofilo Aguilar CMA CILING MACHINE TENDER documented in this encounter Plan of Treatment Upcoming Encounters Date Type Specialty Care Team Description 05/16/2022 Office Visit Cardiology Jorge Luis Akers DO [address] [place] [address] (Wo rk) documented as of this encounter Visit Diagnoses Not on filedocumented in this encounter Care Teams Heel Emery Buffer Relationship Specialty Start Date End Date [facility] PCP - General 01/27/16 1 Medical [address] [place], [place] [phone] Ivis Akers Assigned Heart and Vascular 02/12/20 10/01/20 DO Shira Provider [address] [place] [address] Yesenia Granger MD Assigned Surgical Provider 03/13/[address] [place] [address] [address] [place] [address] documented as of this encounter
--- OUTSIDE RECORDS SUMMARY | 2022-02-20 21:13 | XMS_ITS | Encounter Summary ---
:1945 Author Organization [place] Address [address] [place] [address] Care Team Providers Name Role [facility], [facility] Primary Care Provider [phone] Ivis Akers DO Unavailable [phone] Yesenia Granger MD Unavailable Eloise Malave MD Primary Care Provider Ayala Lemos APRN UNDER [employer]ERIFF Unavailable [phone] Malina Parra MD Unavailable Tiffanie Lomeli PA-C Unavailable [phone] Ivis Akers DO Unavailable [phone] Reason for Visit Reason Onset Date Comments Appointment 03/07/2020 Clinic Review for He maturia Referral Encounter Details Date Type Department Care Team Description 03/07/2020 [facility] Urology None Ap pointment (Clinic Review [facility]ia Referral) [address] [facility] [address] [place] [address] Social History Tobacco Use Types Packs/Day Years Used Date Smoking Tobacco: Never Smokeless Tobacco: Never Alcohol Use Standard Drinks/Week Comments No 0 (1 standard drink = 0.6 oz pure alcoho l) Sex Assigned at Date Recorded Not on file documented as of this encounter Miscellaneous Notes Telephone Encounter - Shyam Mena - 03/07/2020 10:44 AM CST [facility] Phone Message May a detailed message be left on voicemail: no Reason for Call: Other: Pt called to schedule appt for hematuria w/ urgency and incontinence. Pt referral is in [facility]. Protocol asks for clinic review prior to scheduling. Please call Pt back to discuss. Action Taken: Message routed to: Other: [facility] Travel Screening: Not Applicable GER DRUG SAFETY documented in this encounter Plan of Treatment Upcoming Encounters Date Type Specialty Care Team Description 05/16/2022 Office Visit Cardiology Jorge Luis Akers DO [address] [place] [id number] (Wo rk) documented as of this encounter Visit Diagnoses Not on filedocumented in this encounter Care Teams Plant Health Care Technician Relationship Specialty Start Date End Date [facility] PCP - General 01/27/16 1 Medical [address] [place] [address] Eloise Malave MD PCP - General Family Medicine 10/07/20 [facility] [address] [place], [place] [phone] Ivis Akers Assigned Heart and 02/12/2010/01 DO Shira Vascular Provider [address] [place] [address] Yesenia Granger See Assigned Surgical 03/13/20 2 MD Crow Provider [address] [facility] [address] [place] [address] Ayala Lemos, Assigned Heart and 10/02/20 [facility] Vascular Provider [address] [place] [id number] Malina Parra Assigned Sleep 11/27/20 12/31/20 MD Gio Provider [address] [place] [address] Tiffanie Lomeli Assigned Sleep 01/01/21 RAOUL Garcia Provider [address] [place] [address] Ivis Akers MD Cardiovascular Disease 01/05/22 DO Shira [address] [place] [address] documented as of this encounter
--- OUTSIDE RECORDS SUMMARY | 2022-02-20 21:13 | XMS_ITS | Encounter Summary ---
:1945 Author Organization [place] Address [address] [place] [address]. [place] [address] Care Team Providers Name Role Phone [facility] Medical Primary Care Provider [phone] Ivis Akers DO Unavailable [phone] Yesenia Granger MD Unavailable Encounter Details Date Type Department Care Team Description 06/14/2020 Travel Social History Tobacco Use Types Packs/Day Years Used Date Smoking Tobacco: Never Smokeless Tobacco: Never Alcohol Use Standard Drinks/Week Comments No 0 (1 standard drink = 0.6 oz pure alcoho l) Sex Assigned at Date Recorded Not on file COVID-19 Exposure Response Date Recorded In the last month, have you been in contact with No / Unsure 06/14/2020 10:09 AM FOREPART RASPER someone who was confirmed or suspected to have Coronavirus / COVID-19? documented as of this encounter Plan of Treatment Upcoming Encounters Date Type Specialty Care Team Description 05/16/2022 Office Visit Cardiology Jorge Luis Akers DO [address] [place] [id number] (Wo rk) documented as of this encounter Visit Diagnoses Not on filedocumented in this encounter Care Teams Vp Sales Relationship Specialty Start Date End Date [facility] PCP - General 01/27/16 1 Medical [address] [place], [place] [phone] Dankle, Ivis Assigned Heart and Vascular 02/12/20 10/01/20 DO Shira Provider [address] [place] [address] Yesenia Granger MD Assigned Surgical Provider 03/13/20 [address] [facility] [address] [place] [address] documented as of this encounter
--- OUTSIDE RECORDS SUMMARY | 2022-02-20 21:13 | XMS_ITS | Encounter Summary ---
:1945 Author Organization [place] Address [facility] [place] [address] Care Team Providers Name Role Phone [facility] Primary Care Provider [phone] Ivis Akers DO Unavailable [phone] Yesenia Granger MD Unavailable Reason for Referral Rehab Therapy Physical Therapy (Routine) - Closed Specialty Diagnoses / Procedures Referred By Contact Refer red To Contact Diagnoses Mixed incontinence Nocturia Yesenia Granger M [facility] Darryl Mendoza MD & Physical Therapy - [address] [facility] [address] [place], [place] [address] [place] [address] Fax: Referral ID Status Reason Start Date Expiration Date Visits Requ ested Visits Authorized [id number] Closed 06/14/2020 04/21/2021 40 38 NELER OUTSOLE Reason for Visit Reason Comments Micro-Hematuria Patient here today for Cysto scopy Mixed-Incontinence Patient here today for UA an d PVR Encounter Details Date Type Department Care Team Description 06/14/2020 Office Visit Malaika [facility] Yesenia Coto See Micros copic hematuria (Primary Dx); Urology Clinic Walker Maria MD Mixed incontinence; [address] [facility] [address] Nocturia; [address] [facility] [address] Uterovaginal prolapse, incomplete [place] [address] [place], [place] [phone] [address] Social History Tobacco Use Types Packs/Day [...] with No / Unsure 06/14/2020 10:09 AM CHANNELER OUTSOLE someone who was confirmed or suspected to have Coronavirus / COVID-19? documented as of this encounter Last Filed Vital Signs Vital Sign Reading Time Taken Comments Blood Pressure 146/74 06/14/2020 10:31 AM CHANNELER OUTSOLE Pulse 58 06/14/2020 10:31 AM CHANNELER OUTSOLE Temperature - - Respiratory Rate - - Oxygen Saturation 99% 06/14/2020 10:31 AM CHANNELER OUTSOLE Inhaled Oxygen Concentration - - Weight 82.6 kg (182 lb) 06/14/2020 10:31 AM CHANNELER OUTSOLE PER PT Height 154.9 cm (5' 1) 06/14/2020 10:31 AM CHANNELER OUTSOLE PER PT Body Mass Index 34.39 06/14/2020 10:31 AM CHANNELER OUTSOLE documented in this encounter Patient Instructions Patient InstructionsCristine Mcqueen CMA - 06/14/2020 10:30 AM CST Websites with free information: [employer] patient website: www.voicesforpfd.org Total Control Program: www.totalcontrolprogram.com Take the furosemide 1-2 pm to try to make yourself a little dehydrated before bedtime and do not drink anything after dinner Please see one of the dedicated pelvic floor physical therapist ([facility] [phone]) Please return to see me in 3 months, sooner if needed It was a pleasure meeting with you [...] leaving completely satisfied with your care experience. AFTER YOUR CYSTOSCOPY ? ? You have just completed a cystoscopy, or cysto, which allowed your physician to learn more about your bladder (or to remove a stent placed after surgery). We suggest that you continue to avoid caffeine, fruit juice, and alcohol for the next 24 hours, however, you are encouraged to return to your normal activities. ? ? A few things that are considered normal after your cystoscopy: ? * small amount of bleeding (or spotting) that clears within the next 24 hours ? * slight burning sensation with urination ? * sensation of needing to void (urinate) more frequently ? * the feeling of air in your urine ? * mild discomfort that is relieved with Tylenol * bladder spasms ? ? ? Please contact our office promptly if you: ? * develop a fever above 101 degrees ? * are unable to urinate ? * develop bright red blood that does not stop ? * experience severe pain or swelling ? ? ? And of course, please contact our office with any concerns or questions [phone] ? NELER OUTSOLE documented in this encounter Progress Notes Yesenia Granger MD - 06/14/2020 10:30 AM CST June 14, 2020 Return visit Patient returns today for follow up. She denies any changes in her health since last visit. BP (!) 146/74 Pulse 58 Ht 1.549 m (5' 1) Wt 82.6 kg (182 lb) SpO2 99% BMI 34.39 kg/m?? She is comfortable, in no distress, non-labored breathing. Abdomen is soft, non- tender, non-distended. Normal external female genitalia. Negative CHANNELER OUTSOLE. Pelvic exam is remarkable for stage II descent andmild myofascial tenderness Cystoscopy Note: After informed consent was obtained patient was prepped and draped in the standard fashion. The flexible cystoscope was inserted into a normal appearing urethral meatus. The urotheliumwas carefully examined and there were a couple small diverticula but no tumors, masses, stones, foreign bodies, or other urothelial abnormalities noted. Bilateral ureteral orifices were noted in the normal orthotopic position once prolapse was reduced and both effluxed clear urine. The cystoscope was retroflexed and the bladder neck was unremarkable. The urethra was carefully examined upon removing the cystoscope and was unremarkablle. Patient tolerated the procedure without complications noted. A/P: 74 year old F with microscopic hematuria, mixed urinary incontinence, nocturia and stage II uterovaginal prolapse No obvious etiology for microscopic hematuria Uterovaginal prolapse not bothersome right now so monitor. We discussed the etiologies of stress and urge incontinence and how they differ. We discussed that the options of treating stress incontinence to include observation, weight loss, pelvic floor physicaltherapy, incontinence pessary, urethral bulking agents, and surgical correction most commonly with midurethral sling or autologous rectus fascial sling. We then discussed that urge incontinence treatments include observation, weight loss, medications most commonly anticholinergics, physical therapy, biofeedback, intravesical botulinum toxin, percutaneous tibial nerve stimulation and sacral neuromodulation. We discussed how her pelvic floor symptoms are related to the physical exam findings and her pelvic floor myofascial dysfunction. We discussed how the recommended treatment is dedicated pelvic floor therapy. We discussed how the pelvic floor physical therapy works and patient is agreeable. Referral was placed. RTC 3 months, sooner if needed Yesenia Granger MD MPH Customer Manager of Urology [facility] Patient Care Team: [facility] as PCP - Ivis Noland DO as Assigned Heart and Vascular Provider Yesenia Granger MD as Assigned Surgical Provider NELER OUTSOLE documented in this encounter Nursing Notes Cristine McqueenBREANNA - 06/14/2020 10:30 AM CST Chief Complaint Patient presents with ??? Micro-Hematuria Patient here today for Cystoscopy ??? Mixed-Incontinence Patient here today for UA and PVR Blood pressure (!) 146/74, pulse 58, height 1.549 m (5' 1), weight 82.6 kg (182 lb), SpO2 99 %. Body mass index is 34.39 kg/m??. Patient Active Problem List Diagnosis ??? Paroxysmal atrial fibrillation (H) ??? Personal history of other venous thrombosis and embolism ??? Obesity with body mass index 30 or greater ??? Malignant neoplasm of left breast in female, estrogen receptor positive (H) ??? Essential hypertension ??? Chronic diastolic heart failure (H) ??? S/P repair of ventral hernia ??? Gastroesophageal reflux disease ??? Mixed incontinence ??? Microscopic hematuria Allergies Allergen Reactions ??? Amoxicillin Nausea ??? Sulfa Drugs Current Outpatient Medications Medication Sig Dispense Refill ??? aspirin 81 MG EC tablet Take 81 mg by mouth daily ??? cholecalciferol (VITAMIN D-[address]) 25 MCG (1000 UT) TABS Take 1,000 Units by mouth daily ??? escitalopram (LEXAPRO) 10 MG tablet Take 5 mg by mouth ??? famotidine (PEPCID) 20 MG tablet Take 20 mg by mouth 2 times daily ??? furosemide (LASIX) 40 MG tablet Take 20 mg by mouth ??? metoprolol succinate ER (TOPROL-XL) 50 MG 24 hr tablet Take 50 mg by mouth daily ??? omega 3 1000 MG CAPS Take 1 g by mouth ??? omeprazole (PRILOSEC) [address] capsule Take 20 mg by mouth ??? potassium chloride SA (K-DUR/KLOR-CON M) 20 MEQ CR tablet Take 10 mEq by mouth ??? simvastatin (ZOCOR) 40 MG tablet Take 40 mg by mouth daily Social History Tobacco Use ??? Smoking status: Never Smoker ??? Smokeless tobacco: Never Used Substance Use Topics ??? Alcohol use: No ??? Drug use: No Prior to the start of the procedure and with procedural staff participation, I verbally confirmed the patient???s identity using two indicators, relevant allergies, that the procedure was appropriate and matched the consent or emergent situation, and that the correct equipment/implants were available. Immediately prior to starting the procedure I conducted the Time Out with the procedural staff and re-confirmed the patient???s name, procedure, and site/side. I have wiped the patient off with the povidone-Iodine solution, draped them, used Lidocaine hydrochloride jelly, and instilled sterile water in to the bladder. (The Joint Commission universal protocol was followed.) Yes Sedation (Moderate or Deep): None UA RESULTS: Recent Labs Lab Test 06/14/20 1020 COLOR Yellow APPEARANCE Clear URINEGLC Negative URINEBILI Negative URINEKETONE Negative SG 1.020 UBLD Trace* URINEPH 6.5 PROTEIN Negative UROBILINOGEN 2.0* NITRITE Negative LEUKEST Trace* 5mL 2% lidocaine hydrochloride Urojet instilled into urethra. [facility]# [address]-3 Lot #: [id number] Expiration Date: 01/11 PVR 9ML YANE Hallman 06/14/2020 11:25 AM NELER OUTSOLE documented in this encounter Plan of Treatment Upcoming Encounters Date Type Specialty Care Team Description 05/16/2022 Office Visit Cardiology Jorge Luis Akers DO [address] [place] [address] (Wo rk) Scheduled Referrals Name Type Priority Associated Diagnoses Order S chedule CHRISTIAN Physical Therapy Referral Routine Mixed incon tinence Expected: 07/12/2020 Referral Nocturia (Approximate), Expires: 2021 documented as of this encounter Procedures Procedure Name Priority Date/Time Associated Comments Diagnosis MO CYSTOURETHROSCOPY Routine 06/14/2020 11:02 Microscopic AM CHANNELER OUTSOLE hematuria URINE MACROSCOPIC ONLY Routine 06/14/2020 10:20 Microscopic R esults for this AM CHANNELER OUTSOLE hematuria procedure are in Mixed incontinence the resul ts section. MO MEASURE POST-VOID Routine 06/14/2020 Microscopic Results for this RESIDUAL URINE/BLADDER hematuria procedure are in CAPACITY, US NON-IMAGING Mixed incontinen ce the results section. documented in this encounter Results (ABNORMAL) UA without Microscopic (06/14/2020 10:20 AM CHANNELER OUTSOLE) [facility] Method Time Signature Color Urine Yellow 06/14/2020 [facility] 10:33 AM [facility]IC [facility] Appearance Urine Clear 06/14/2020 [facility] 10:33 AM [facility]IC [facility] Glucose Urine Negative NEG^Negat 06/14/2020 [facility] belkis mg/dL 10:33 AM [facility]IC [facility] Bilirubin Urine Negative NEG^Negat 06/14/2020 [facility] [place] 10:33 AM [facility] Ketones Urine Negative NEG^Negat 06/14/2020 [facility] [place] mg/dL 10:33 AM [facility] Specific [place] 1.020 1.003 - 06/14/2020 [facility] Urine 1.035 10:33 AM [facility]IC [facility] Blood Urine Trace (A) NEG^Negat 06/14/2020 [facility] belkis 10:33 AM [facility] pH Urine 6.5 5.0 - 7.0 06/14/2020 [facility] pH 10:33 AM [facility] Protein Albumin Negative NEG^Negat 06/14/2020 [facility] Urine belkis mg/dL 10:33 AM [facility] Urobilinogen 2.0 (H) 0.2 - 1.0 06/14/2020 [facility] Urine EU/dL 10:33 AM [facility] Nitrite Urine Negative NEG^Negat 06/14/2020 [facility] [place] 10:33 AM [facility] Leukocyte Trace (A) NEG^Negat 06/14/2020 [facility] Esterase Urine belkis 10:33 AM [facility] Source Midstream 06/14/2020 [facility] Urine 10:21 AM [facility] Specimen (Source) Anatomical Collection Method Collection Time Re ceived Time Location / / Volume Laterality Examination of 06/14/2020 10:20 midstream urine AM CHANNELER OUTSOLE 10:21 AM CHANNELER OUTSOLE specimen (procedure) Yesenia Granger MD LAB - URINE ORDERABLES Performing Organization Address City/State/ZIP Code Phon e Number [facility] [address] [phone] CLIN[address] MEASURE POST-VOID RESIDUAL URINE/BLADDER CAPACITY, US NON-IMAGING ([address]) (06/14/2020) P athologist Signature Residual Volume 9 (RV) (External) Yesenia Granger MD PROCEDURES documented in this encounter Visit Diagnoses Diagnosis Microscopic hematuria - Primary Mixed incontinence Mixed incontinence urge and stress (male )(female) Nocturia Uterovaginal prolapse, incomplete documented in this encounter Care Teams Doctor Of Optometry Relationship Specialty Start Date End Date [facility] PCP - General 01/27/[address] [place] [address] [place] [address] Ivis Akers Assigned Heart and Vascular 02/12/20 10/01/20 DO Shira Provider [address] [place], [place] [address] Yesenia Granger MD Assigned Surgical Provider 03/13/[address] [place] [address] [address] [place] [address] documented as of this encounter
--- OUTSIDE RECORDS SUMMARY | 2022-02-20 21:13 | XMS_ITS | Encounter Summary ---
:1945 Author Organization [place] Address [facility] [place] [address] Care Team Providers Name Role Phone [facility] Primary Care Provider [phone] Yesenia Granger MD Unavailable [facility] Primary Care Provider Ayala Lemos APRN CLINICAL LABORATORY TECHNOLOGIST Unavailable [phone] Malina Parra MD Unavailable Reason for Visit Rehab Therapy Physical Therapy (Routine) - Closed Specialty Diagnoses / Procedures Referred By Contact Refer red To Contact Diagnoses Mixed incontinence Nocturia Yesenia Granger M [facility] & Physical Therapy - [address] [facility] [address] [place], [place] [address] [place] [address] Fax: Referral ID Status Reason Start Date Expiration Date Visits Requ ested Visits Authorized [id number] Closed 06/14/2020 04/21/2021 40 38 Encounter Details Date Type Department Care Team Description 10/05/2020 [facility] [address] [facility] [facility] [address] [place] [address] Mixed incontinence; Rehabilitation Services Gale Puentes, PT [address] [facility] [place] [address] Nocturia; [place] Muscle weakness (generalized ) [address] [place] [address] Social History Tobacco Use Types Packs/Day Years [...] documented as of this encounter Progress Notes Gale Puentes, PT - 10/05/2020 1:30 PM CDT Physical Therapy Initial Evaluation Subjective: Therapist Generated HPI Evaluation Problem details: Patient has chief complaint of mixed urinary incontinence which started insidiouslymore than 5 years ago.(MD orders 06/14/2020) She complains of stress incontinence with coughing and sneezing, urge incontinence and urinary frequency. She leaks many times/day but does not use pads for protection. She voids every 1/2 hour during the day, with leaking noted as she tries to make it to the bathroom. She gets up 0-1x/night to void and usually does not leak then. Medical history of several abdominal hernia surgeries; chronic low back pain; four pregnancies and 3vaginal deliveries; several falls- most recently in May 2020. She takes Lasix for heart issue, with severe frequency and urge for a few hours after taking the medication.. Patient Health History Racquel Jones being seen for urinary incontinence. Date of Onset: 5 or more years. Problem occurred: unknown Pain is reported as 0/10 on pain scale. General health as reported by patient is good. Pertinent medical history includes: high blood pressure, implanted device, incontinence, overweight and osteoarthritis. Other medical history details: atrial fibrillation. Red flags: Significant weakness. Other medical allergies details: sulpha. Other surgery history details: right TKA, abdominal henria surgeries, gall bladder. Current medications: Anti-depressants and high blood pressure medication. Other medications details:aspirin, furosemide, famotidine, lexapro, potassium, Vit D, Tylenol Swoope 3. Current occupation is retired. Primary job tasks include: Driving, lifting/carrying and repetitive tasks. Objective: Gait: Gait Type: Antalgic Assistive Devices: Cane Deviations: Lumbar: Trunk lean R Pelvic Dysfunction Evaluation: Bladder/Pelvic Problems: Storage Problem: Frequency, urge incontinence and stress incontinence Diagnostic Tests: Cystoscopy: Normal Flexibility: Tightness not present at: Adductors; Iliopsoas; Hamstrings; Piriformis or Gluteals Pelvic Clock Exam: NA Reflex Testing: NA External Assessment: NA Internal Assessment: NA (Patient preferred ro defer internal exam) SEMG Biofeedback: NA Additional History: Delivery History: Vaginal delivery Number of Pregnancies: 4 Number of Live Births: 3 General ROS Assessment/Plan: Patient is a 74 year old female with pelvic complaints. Patient has the following significant findings with corresponding treatment plan. Diagnosis 1: Mixed incontinence Decreased strength - therapeutic exercise, therapeutic activities and home program Impaired muscle performance - biofeedback and neuro re-education Decreased function - therapeutic activities and home program Therapy Evaluation Codes: 1) History comprised of: Personal factors that impact the plan of care: None. Comorbidity factors that impact the plan of care are: None. Medications impacting care: None. 2) Examination of Body Systems comprised of: Body structures and functions that impact the plan of care: Pelvis. Activity limitations that impact the plan of care are: Frequency, Stress incontinence and Urge incontinence. 3) Clinical presentation characteristics are: Stable/Uncomplicated. 4) Decision-Making Low complexity using standardized patient assessment instrument and/or measureable assessment of functional outcome. Cumulative Therapy Evaluation is: Low complexity. Previous and current functional limitations: (See Goal Flow Sheet for this information) Short term and intermediate manager goals: (See Goal Flow Sheet for this information) Communication ability: Patient appears to be able to clearly communicate and understand verbal and written communication and follow directions correctly. Treatment Explanation - The following has been discussed with the patient: RX ordered/plan of care Anticipated outcomes Possible risks and side effects This patient would benefit from PT intervention to resume normal activities. Rehab potential is good. Frequency: 2 X a month, once daily Duration: for 3 months Discharge Plan: Achieve all LTG. Independent in home treatment program. Reach maximal therapeutic benefit. Please refer to the daily flowsheet for treatment today, total treatment time and time spent performing 1:1 timed codes. Gale Puentes PT - 10/05/2020 1:30 PM CDT Patient seen for one time evaluation and treatment. Patient did not return for further treatment andcurrent status is unknown. Please see initial evaluation for further information. documented in this encounter Miscellaneous Notes Addendum Note - Gale Puentes PT - 10/05/2020 1:30 PM CDT Addended by: GALE PUENTES D on: 10/12/2020 01:00 PM Modules accepted: Orders documented in this encounter Plan of Treatment Upcoming Encounters Date Type Specialty Care Team Description 05/16/2022 Office Visit Cardiology Jorge Luis Akers DO [address] [place] [id number] (Wo rk) documented as of this encounter Procedures Procedure Name Priority Date/Time Associated Diagnosis Comme nts GA SELF CARE MANAGEMENT Routine 10/05/2020 2:52 PM Mixed incontinence TRAINING, EA 15 MIN CDT Nocturia Muscle weakness (generalized) GA THERAPEUTIC Routine 10/05/2020 2:52 PM Mixed inconti nence EXERCISES. EA 15 MIN CDT Nocturia Muscle weakness (generalized) documented in this encounter Visit Diagnoses Diagnosis Mixed incontinence Mixed incontinence urge and stress (male )(female) Nocturia Muscle weakness (generalized) documented in this encounter Care Teams Team Assembly Line Machine Operator Relationship Specialty Start Date End Date [facility] PCP - General 01/27/[address] [place] [address] [place], [place] [id number] Eloise Malave MD PCP - General Family Medicine 10/07/20 [facility] [id number] [place] [address] Yesenia Granger, Assigned Surgical Provider 02/2112/15/21 [address] [facility] [place] [address] Ayala Lemos APRN Assigned Heart and 10/02/20 CLINICAL LABORATORY TECHNOLOGIST Vascular Provider [address] [place] [address] Malina Parra, Assigned Sleep Provider 11/27/20 12/31/20 [address] [place] [address] documented as of this encounter
--- OUTSIDE RECORDS SUMMARY | 2022-02-20 21:13 | XMS_ITS | Encounter Summary ---
:1945 Author Organization [place] Address [address] [place] [address]. [place] [address] Care Team Providers Name Role Phone [facility] Medical Primary Care Provider [phone] Ivis Akers DO Unavailable [phone] Yesenia Granger MD Unavailable Encounter Details Date Type Department Care Team Description 09/02/2020 Travel Social History Tobacco Use Types Packs/Day [...] [address] [place] [id number] (Wo rk) documented as of this encounter Visit Diagnoses Not on filedocumented in this encounter Care Teams Allergist/Md Relationship Specialty Start Date End Date [facility] PCP - General 01/27/16 [address] [facility] [address] [place], [place] [id number] Ivis Akers Assigned Heart and Vascular 02/12/20 10/01/20 DO Shira Provider [address] [place] [address] Yesenia Granger MD Assigned Surgical Provider 03/13/20 [address] [facility] [address] [place] [address] documented as of this encounter
--- OUTSIDE RECORDS SUMMARY | 2022-02-20 21:14 | XMS_ITS | Encounter Summary ---
:1945 Author Organization [place] Address [address] [place] [address]. [place] [address] Care Team Providers Name Role Phone [facility] Primary Care Provider [phone] Reason for Visit Reason Comments Urinary Retention Encounter Details Date Type Department Care Team Description 02/15/2017 Office Visit [facility] Jackie Murcia [facility] [place] (Primary Dx) [address] [place] [address] [place] [address] [phone] Social History Tobacco Use Types Packs/Day Years Used Date Smoking Tobacco: Never Smokeless Tobacco: Never Alcohol Use Standard Drinks/Week Comments No 0 (1 standard drink = 0.6 oz pure alcoho l) Sex Assigned at Date Recorded Not on file documented as of this encounter Last Filed Vital Signs Vital Sign Reading Time Taken Comments Blood Pressure 118/66 02/15/2017 11:29 AM CDT Pulse 80 02/15/2017 11:29 AM CDT Temperature - - Respiratory Rate - - Oxygen Saturation - - Inhaled Oxygen Concentration - - Weight 81.6 kg (180 lb) 02/15/2017 11:29 AM CDT Height 154.9 cm (5' 1) 02/15/2017 11:29 AM CDT Body Mass Index 34.01 02/15/2017 11:29 AM CDT documented in this encounter Progress Notes Jackie Murcia PA-C - 02/15/2017 11:30 AM CDT CC: Urinary retention. HPI: It is a pleasure to see . Racquel Jones, a 71 year old female seen today in the urology clinic in consultation from Dr. Stefan Jj of [facility] for evaluation of urinary retention. This developed acutely on 02/10/17. Dickinson catheter was placed in the ER. U/A negative at that time. This hasbeen draining well with pale, yellow urine. The patient is tolerating the catheter without issue. Noclots of hematuria noted. The patient has no prior history of AUR or similar symptoms. She has a complicated medical history including DVT, diverticulosis, and recent surgery for enterocutaneous fistula. She had a laparotomy, fistula repair and resection of transverse colon on 01/28/[address] Vasquez. She had been taking Flexeril following this and was discontinued in the ER. She has a ventral wound and currently has a wound VAC in place. Currently denies fevers, chills, N/V, abdominal/back pain. Past Medical History: Diagnosis Date ??? Hernia, abdominal ??? Hyperlipemia ??? Hypertension ??? Osteoporosis Past Surgical History: Procedure Laterality Date ??? EYE SURGERY ??? HERNIA REPAIR ??? ORTHOPEDIC SURGERY Current Outpatient Prescriptions Medication Sig Dispense Refill ??? atenolol (TENORMIN) 50 MG tablet Take 50 mg by mouth ??? escitalopram (LEXAPRO) 10 MG tablet Take 10 mg by mouth ??? furosemide (LASIX) 40 MG tablet Take 40 mg by mouth ??? potassium chloride SA (K-DUR/KLOR-CON M) 20 MEQ CR tablet Take 20 mEq by mouth ??? ondansetron (ZOFRAN-ODT) 4 MG ODT tab Take 4 mg by mouth ??? oxyCODONE (ROXICODONE) 5 MG IR tablet Take 5-10 mg by mouth Allergies Allergen Reactions ??? Amoxicillin Nausea ??? Sulfa Drugs Family History: There is no h/o malignancy. There is no h/o urolithiasis. Social History: The patient does not smoke cigarettes. Denies EtOH and illicit drug use. ROS: A comprehensive 14 point ROS was obtained and was otherwise negative except for that outlined above in the HPI. PHYSICAL EXAM: Vitals: 02/15/17 1129 BP: 118/66 BP Location: Left arm Pulse: 80 Weight: 81.6 kg (180 lb) Height: 1.549 m (5' 1) GENERAL: Well groomed/well developed/well nourished female in NAD. HEENT: EOMI, AT, NC. SKIN: Warm to touch, dry. No visible rashes or lesions. RESP: No increased respiratory effort. LYMPH: No LE edema. ABD: Soft, NT, ND. No CVAT. MS: Full ROM in extremities. : Dickinson catheter indwelling draining yellow urine. NEURO: Alert and oriented x 3. PSYCH: Normal mood and affect, pleasant and agreeable during interview and exam. PROCEDURE: A trial of void was performed by nursing staff today in the clinic. The patient's Dickinson leg bag was disconnected and 200cc of sterile water were infused into the patient's bladder via gravity drainage, which the patient tolerated fine. The Dickinson balloon was decompressed and the catheter wasthen removed. After a few minutes Ms. Jones voided 150 cc. Postvoid residual urine volume by ultrasound was measured as 15cc. The patient did pass today's trial of void and the catheter did not need to be replaced. REVIEW OF OUTSIDE RECORDS: 10 minutes spent reviewing previous/outside records. PVR 15 ASSESSMENT/PLAN: 71 year old female who developed acute urinary retention requiring Dickinson catheter placement, likely medication related. The patient successfully passed a trial of void today. The patient should return for a follow up office visit in 1 month for PVR. Should the patient continue to have voiding difficulty, the next appropriate studies would be cystoscopy and/or videourodynamics to better assess bladder function. I have enjoyed participating in the medical care of this very pleasant patient. Please don't hesitate to contact me with any questions or concerns. Jackie Murcia PA-C [facility] 30 min spent with the patient, >50% of this time was spent in a [id number] manner and on coordination of care. documented in this encounter Nursing Notes Kerline Rosenberg LPN - 02/15/2017 11:30 AM CDT Chief Complaint Patient presents with ??? Urinary Retention Kerline Rosenberg LPN documented in this encounter Plan of Treatment Upcoming Encounters Date Type Specialty Care Team Description 05/16/2022 Office Visit Cardiology Jorge Luis Akers DO [address] [place], [place] [address] (Wo rk) documented as of this encounter Visit Diagnoses Diagnosis Urinary retention - Primary Retention of urine, unspecified documented in this encounter Care Teams Liquid Sugar Fortifier Relationship Specialty Start Date End Date [facility] PCP - General 01/27/16 10/06/20 [address] [place] [address] documented as of this encounter
--- OUTSIDE RECORDS SUMMARY | 2022-02-20 21:14 | XMS_ITS | Encounter Summary ---
:1945 Author Organization [place] Address [address] [place] [address] Care Team Providers Name Role Phone Unavailable Primary Care Provider Unavailable Encounter Details Date Type Department Care Team Description 02/15/2006 Admission H&P Jalil Germain MD ([employer]) [facility] [address] [place] [address] (Wo rk) Social History Tobacco Use Types Packs/Day Years Used Date Smoking Tobacco: Never Assessed Sex Assigned at Date Recorded Not on file documented as of this encounter Progress Notes Jalil Germain - 06/11/2006 4:37 PM CPAS FINAL PROPOSED PROCEDURE: Right knee arthroscopic meniscal tear repair. HISTORY: Racquel Cheema is a 60-year-old female who was seen by Dr. Hillman two years ago for her left knee, which she had an MRI scan of and improved conservatively, but now has had pain in the right knee for some time with a positive MRI for meniscal tear. PAST MEDICAL HISTORY: 1.Right inguinal hernia repair in 1988. 2.Ventral hernia repair in 05/1995. 3.Left vitrectomy on 01/24/2006 for a left macular pucker. 4.Hypertension. 5. 3 para 3-0-0-3 with NSVDs. MEDICATIONS: 1.Aspirin 81 mg daily. 2.Triamterene/hydrochlorothiazide 37.5/25 daily. ALLERGIES: SULFA CAUSES SHORTNESS OF BREATH. FAMILY HISTORY: Unremarkable. Father in an auto accident but he had diabetes. Mother at 85. SOCIAL HISTORY: Alcohol: Rare. Caffeine: Four to five pops per day. Nonsmoker. 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 REVIEW OF SYSTEMS: Completely unremarkable except she also complains of corns she has had on both first toes recently since she feels she changed her walking due to the right knee pain. Also please note she has usually been nauseated after general anesthesia. PHYSICAL EXAMINATION: GENERAL: The patient is a healthy-appearing middle-aged female in no distress. VITAL SIGNS: Height 63 inches, weight 189 pounds, temperature 98.0, pulse 72 and regular, respirations 12, blood bicdxhes964/88. HEENT: There is a recent vitrectomy in the left eye. Neck normal. LUNGS: Clear to auscultation and percussion. CARDIOVASCULAR: Normal S1 and S2 without murmur. ABDOMEN: There is a ventral hernia surgical repair and right inguinal surgical scar. EXTREMITIES; There is mild swelling with pain on range of motion of the right knee. Reflexes normal bilaterally. Distal CMS is normal. There are corns on the plantar surface of both toes, which I pared for the patient today. LABORATORY DATA: EKG is normal. CBC with platelets normal, potassium 3.5. IMPRESSION: As above. PLAN: I see no contraindication. She will hold her aspirin preoperatively. I advised her to use an dcow-[id number]-[id number] wart medicine for one plantar wart that she also has. Electronically signed on 06/11/2006 16:36 by JALIL GERMAIN MD MT: ONLEIA Name: RACQUEL CHEEMA Account: [id number] : 1945 Admitted: [id number] Document: [id number] cc: Isai Hillman MD documented in this encounter Plan of Treatment Upcoming Encounters Date Type Specialty Care Team Description 05/16/2022 Office Visit Cardiology Jorge Luis Akers DO [address] [place] [address] (Wo rk) documented as of this encounter Visit Diagnoses Not on filedocumented in this encounter
--- OUTSIDE RECORDS SUMMARY | 2022-02-20 21:14 | XMS_ITS | Encounter Summary ---
:1945 Author Organization [place] Address [address] [place] [address]. [place] [address] Care Team Providers Name Role Phone [place], [facility] Primary Care Provider [phone] Ivis Akers DO Unavailable [phone] Reason for Referral Consultation (Routine) - Closed Specialty Diagnoses / Procedures Referred By Contact Refer red To Contact Urology Diagnoses Hematuria Generic External Data [facility] [address] [facility] 4th [place] [address] Phone: Fax: Referral ID Status Reason Start Date Expiration Date Visits Requ ested Visits Authorized [id number] Closed 03/03/2020 03/03/2021 1 1 [employer] SAL[employer] REPRESENTATIVE Encounter Details Date Type Department Care Team Description 03/03/2020 Transcribe Orders GENERIC EXTERNAL Provider, Generic H ematuria (Primary DATA DEPARTMENT External Data Dx) Social History Tobacco Use Types Packs/Day [...] Akers DO [address] [place], [place] [address] (Wo rk) Scheduled Referrals Name Type Priority Associated Diagnoses Order S chedule UROLOGY ADULT REFERRAL Referral Routine Hematuria Order ed: 03/03/2020 documented as of this encounter Visit Diagnoses Diagnosis Hematuria - Primary Hematuria, unspecified documented in this encounter Care Teams Rail Signal Mechanic Relationship Specialty Start Date End Date [facility] PCP - General 01/27/16 1 Medical [address] [place] [address] Ivis Akers Assigned Heart and Vascular 02/12/20 10/01/20 DO Shira Provider [address] [place] [address] documented as of this encounter
--- OUTSIDE RECORDS SUMMARY | 2022-02-20 21:14 | XMS_ITS | Encounter Summary ---
:1945 Author Organization [place] Address [address] [facility] [place] [address] Care Team Providers Name Role Phone Unavailable Primary Care Provider Unavailable Encounter Details Date Type Department Care Team Description 09/18/2008 Results Only [facility] Aman Braxton MD [facility] Results [address] [place] [id number] (Wo rk) Social History Tobacco Use Types Packs/Day Years Used Date Smoking Tobacco: Never Assessed Sex Assigned at Date Recorded Not on file documented as of this encounter Plan of Treatment Upcoming Encounters Date Type Specialty Care Team Description 05/16/2022 Office Visit Cardiology Jorge Luis Akers, DO [address] [place] [address] (Wo rk) documented as of this encounter Procedures Procedure Name Priority Date/Time Associated Diagnosis Comme nts HC CT HEAD WO Routine 09/18/2008 6:23 PM Results for this CONTRAST CDT procedure are i n the results section. documented in this encounter Results CT SCAN HEAD/BRAIN (09/18/2008 6:23 PM CDT) Anatomical Region Laterality Modality Other Specimen (Source) Anatomical Collection Method Collection Time Re ceived Time Location / / Volume Laterality 09/18/2008 6:23 PM CDT Impressions 09/18/2008 6:[address] WITHOUT CONTRAST 09/18/2008 HISTORY: Fall, head trauma TECHNIQUE: Axial images from the skull b ase through the vertex. COMPARISON: None FINDINGS: The ventricles are normal in s ize. There is no mass effect or midline shift. There is no evidence o f acute infarct, mass, or hemorrhage. The imaged paranasal sinuses and mastoid air cells are clear. There is extracranial soft tissue swelling in the right frontal region. IMPRESSION: No acute intracranial pathol ogy. Aman Braxton MD [facility] documented in this encounter Visit Diagnoses Not on filedocumented in this encounter
--- OUTSIDE RECORDS SUMMARY | 2022-02-20 21:14 | XMS_ITS | Encounter Summary ---
:1945 Author Organization [place] Address [address] [place] [address] Care Team Providers Name Role Phone Unavailable Primary Care Provider Unavailable Encounter Details Date Type Department Care Team Description 09/18/2008 Emergency room [facility] Aman Klein MD [facility] Results [address] [place] [address] (Wo rk) Social History Tobacco Use Types Packs/Day Years Used Date Smoking Tobacco: Never Assessed Sex Assigned at Date Recorded Not on file documented as of this encounter Progress Notes Aman Klein - 10/07/2008 3:34 PM CDT FINAL CHIEF COMPLAINT: Head injury. HISTORY OF PRESENT ILLNESS: Racquel Cheema is a 62-year-old female who was brought to the Emergency Department by her daughter, arriving at 16:28 hours, complaining of injury to her head after she was walking at a [employer] [place] [employer] when there was a portion of the sidewalk that had heaved upwards and she tripped falling forward on her face. She states she fell so fast that she could not get her hands out in front of her and her daughter states that she hit her head very hard. The patient andher daughter deny loss of consciousness. The patient currently denies neck pain. There was no vomiting, no seizure activity. The patient complains of pain over the right side of her forehead. PAST MEDICAL HISTORY: Hypertension. MEDICATIONS: Aspirin, atenolol, Zocor, Prilosec. ALLERGIES: Sulfa. SOCIAL HISTORY: The patient does not smoke, use street drugs or drink alcohol heavily. She lives alone. FAMILY HISTORY: She denies, noncontributory. REVIEW OF SYSTEMS: See HPI, otherwise, at this time she denies review of systems. Primary physician, Dr. Ordaz at the [facility]. Tetanus status up-to-date. PHYSICAL EXAMINATION: VITAL SIGNS: Blood pressure 134/78, pulse 93, respirations 16, temperature 97.2 orally, SaO2 is 97%on room air. GENERAL: The patient is alert, she is oriented x3, sitting upright on the [facility]. She does not appear to be in acute distress. EYES: Pupils equal, round, react but there is no scleral icterus. ENT: Shows moist mucus membranes. TMs are clear bilaterally with no hemotympanum. She has no nasopharyngeal bleeding. There is a large abrasion over the right amish area as well as the right cheek and right forehead. NECK: Supple, full range of motion, nontender. CARDIOVASCULAR: Regular rate and rhythm. RESPIRATORY: Clear to auscultation bilaterally, no wheezes, no crackles. GASTROINTESTINAL: Abdomen soft, nontender, nondistended. MUSCULOSKELETAL: Moving all 4 extremities. No cyanosis, clubbing or edema. SKIN: [place], warm, dry. NEURO: Nonfocal. Cranial nerves intact and symmetric. Normal speech. Strength is 5/5 in all four extremities. ANCILLARY STUDIES: Head CT is negative, no evidence of intracranial hemorrhage or fracture. EMERGENCY DEPARTMENT COURSE/MEDICAL DECISION MAKING: The patient was brought back to main room in the ER. She was evaluated. The patient is 62 years old and did have significant head injury while on antiplatelet medications that she takes every other day. The patient does live alone but will be staying with her daughter. I thought a CT scan was indicated given the significance of the fall and a significant amount of trauma above the shoulders. CT is negative. She has a normal neuro exam here. Her wounds were prepped and irrigated and cleaned thoroughly and then covered with sterile dressings. The patient declined pain medication initially, but then subsequently took 1 Percocet to help with some of the discomfort in her face. FINAL DIAGNOSIS: Closed head injury, facial abrasions and contusions. DISPOSITION: 1. The patient was given a prescription for 20 Percocet to be used p.r.n. 2. She was given general information for closed head trauma as well as wound care. 3. Return to the ER with increasing pain orchange in mental status. 4. She will stay tonight with her daughter. Electronically signed on 10/07/2008 15:32 by AMAN KLEIN MD MT: MIGUEL#[id number] Name: RACQUEL CHEEMA Account: [id number] : 1945 Visit Date: 09/18/2008 Document: [id number] cc: Louise Ordaz MD documented in this encounter Plan of Treatment Upcoming Encounters Date Type Specialty Care Team Description 05/16/2022 Office Visit Cardiology Jorge Luis Akers DO [address] [place] [address] (Wo rk) documented as of this encounter Visit Diagnoses Not on filedocumented in this encounter
--- OUTSIDE RECORDS SUMMARY | 2022-02-20 21:14 | XMS_ITS | Encounter Summary ---
:1945 Author Organization [place] Address [address] [place] [address]. [place] [address] Care Team Providers Name Role Phone [place], [facility] Primary Care Provider [phone] Reason for Visit CV Testing (Routine) - Closed Specialty Diagnoses / Procedures Referred By Contact Refer red To Contact Cardiology Diagnoses Precordial pain Eloise Malave MD Cardiac Services Procedures Echocardiogram Dobutamine Stress HC DOPPLER ECHO PULSED, F/U OR LIMITED HC DOPPLER ECHO COLOR FLOW VELOCITY MAP HC ECHO HEART XTHORACIC, STRESS/REST HC ECHO TRANSTHORACIC, STRESS/REST W CONTRAST [facility] [address] HC ECHO TRANSTHORACIC, STRES S/REST W/O CONTRAST HC IV PUSH SINGLE, INITIAL SUBSTANCE C INJECTION, PERFLUTREN LIPID MICROSPHERES, PER ML HC STATISTIC IV PUSH SINGLE INITIAL SUBST[place] [address] [employer] [facility] [address] [place], [place] [address] Referral ID Status Reason Start Date Expiration Date Visits Requ ested Visits Authorized [id number] Closed 09/04/2018 09/04/2019 1 1 Encounter Details Date Type Department Care Team Description 09/10/2018 Hospital Encounter [facility] Eloise Malave MD [facility] [address] [place] [address] [phone] (Wo rk) Social History Tobacco Use Types [...] - Inhaled Oxygen Concentration - - Weight 82 kg (180 lb 12.4 oz) 09/10/2018 12:33 PM CDT Height - - Body Mass Index 34.16 03/20/2017 1:27 PM CORDWOOD CUTTER documented in this encounter Medications at Time of Discharge Medication Sig Dispensed Refills Start Date End Date escitalopram (LEXAPRO) 10 Take 15 mg by mouth 0 0 11/28/2016 MG tablet atenolol (TENORMIN) 50 MG Take 50 mg by mouth 0 0 11/28/2016 09/03/2019 tablet furosemide (LASIX) 40 MG Take 20 mg by mouth 0 09/02/2020 tablet omeprazole (PRILOSEC) 20 Take 20 mg by mouth 0 10/07/[address] capsule ondansetron (ZOFRAN-ODT) 4 Take 4 mg by mouth 0 0 11/28/2016 09/03/2019 MG ODT tab oxyCODONE (ROXICODONE) 5 Take 5-10 mg by 0 201609/03/2019 MG IR tablet mouth potassium chloride SA Take 10 mEq by 0 02/09/2017 05/22/2021 (K-DUR/KLOR-CON M) 20 MEQ mouth CR tablet documented as of this encounter Progress Notes Brayan Huynh RN - 09/10/2018 12:57 PM CDT Pt here for elective dobutamine stress test, procedure explained and performed without difficulty, maximum HR achieved with 20 mcg/kg/min of IV dobutamine, post echo pt was given a total of 3 doses of 1 mg IV metoprolol and returned to pre testing HR of 87, denies any pain, taking PO fluids, to home documented in this encounter Plan of Treatment Upcoming Encounters Date Type Specialty Care Team Description 05/16/2022 Office Visit Cardiology Jorge Luis Akers DO [address] [place], [place] [address] (Wo rk) documented as of this encounter Procedures Procedure Name Priority Date/Time Associated Comments Diagnosis ECHO DOBUTAMINE Routine 09/10/2018 1:00 PM Precordial pain Res ults for this STRESS WITH CONTRAST CDT procedu re are in the results section. documented in this encounter Visit Diagnoses Not on filedocumented in this encounter Administered Medications Inactive Administered Medications - up to 3 most recent administrations Medication Order MAR Action Action Date Dose Rate Site DOBUTamine (DOBUTREX) 2 Started 09/10/2018 12:40 PM CDT 10 mcg/kg/ min MG/ML infusion Starting on Sat09/10/18 at 1203, For 1 dose, Marti Meade : cabinet override Vesicant. perflutren diluted 1mL to 2mL with saline Given 09/10/2018 1:15 PM CDT 9 mLs (OPTISON) diluted injection 3 mL 3 mL, Intravenous, ONCE, On Sat09/10/18 at 1315, For 1 dose sodium chloride (PF) 0.9% PF flush 10 mL Given 09/10/2018 1:05 PM CDT 10 mLs 10 mL, Intracatheter, ONCE, On Sat09/10/18 at 1315, For 1 dose documented in this encounter Care Teams Manager Global Communications Relationship Specialty Start Date End Date [facility] Medical PCP - General 01/27/16 10/06/20 [address] [place] [address] documented as of this encounter
--- OUTSIDE RECORDS SUMMARY | 2022-02-20 21:14 | XMS_ITS | Encounter Summary ---
:1945 Author Organization [place] Address [address] [place] [address] Care Team Providers Name Role Phone [facility] Primary Care Provider [phone] Ivis Akers DO Unavailable [phone] Reason for Visit Reason Onset Date Comments Clinic Care Coordination - Follow-up 02/26/2020 Encounter Details Date Type Department Care Team Description 02/26/2020 Telephone [facility] Simi Marinelli RN Clin ic Care Coordination [facility] [place] - Follow-up [address] [facility] [address] [place] [address] Social History Tobacco Use Types Packs/Day Years Used Date Smoking Tobacco: Never Smokeless Tobacco: Never Alcohol Use Standard Drinks/Week Comments No 0 (1 standard drink = 0.6 oz pure alcoho l) Sex Assigned at Date Recorded Not on file documented as of this encounter Miscellaneous Notes Telephone Encounter - Simi Marinelli RN - 02/26/2020 1:52 PM CST Received call from pt, pt stated she recently saw her PCP at [facility] and was told that our office was trying to contact her a few weeks ago. Reviewed that our office did try to contact her on 02/04/20 (see telephone encounter) but could not leave a message due to the mailbox being f ull. Inquired how pt is feeling. Pt stated she is overall feeling OK, denied increased swelling in her legs or shortness of breath. Pt stated she recently had an unexplained fall at [employer] and hit her head and she followed up with her PCP this week. Pt stated she does not believe she lost consciousness. Pt denied any palpitations and stated she may have felt dizzy prior to the fall but she is certainshe did not trip on anything. Pt stated her PCP stopped oxybutynin as this medication may have been causing her dizziness and referred her to PT. Offered to schedule follow up with Dr. Akers but pt declined and stated she would like to see how she does after the medication change and working with PT. Requested pt call back if she changes her mind or has recurrent symptoms. Pt verbalized understanding and agreement with plan. 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 documented in this encounter Plan of Treatment Upcoming Encounters Date Type Specialty Care Team Description 05/16/2022 Office Visit Cardiology Jorge Luis Akers DO [address] [place] [address] (Wo rk) documented as of this encounter Visit Diagnoses Not on filedocumented in this encounter Care Teams Cash Accounting Clerk Relationship Specialty Start Date End Date [facility] PCP - General 01/27/16 1 Medical [address] [address] [place], [place] [id number] Ivis Akers Assigned Heart and Vascular 02/12/20 10/01/20 DO Shira Provider [address] [place] [address] documented as of this encounter
--- OUTSIDE RECORDS SUMMARY | 2022-02-20 21:14 | XMS_ITS | Encounter Summary ---
:1945 Author Organization [place] Address [address] [place] [address]. [place] [address] Care Team Providers Name Role Phone [facility] Primary Care Provider [phone] Encounter Details Date Type Department Care Team Description 09/10/2018 Travel Social History Tobacco Use Types Packs/Day [...] [address] [place] [address] (Wo rk) documented as of this encounter Visit Diagnoses Not on filedocumented in this encounter Care Teams Skill Training Program Coordinator Relationship Specialty Start Date End Date [facility] PCP - General 01/27/16 10/06/20 [address] [place], [place] [id number] documented as of this encounter
--- OUTSIDE RECORDS SUMMARY | 2022-02-20 21:14 | XMS_ITS | Encounter Summary ---
:1945 Author Organization [place] Address [address] [place] [address]. [place] [address] Care Team Providers Name Role Phone [facility] Primary Care Provider [phone] Reason for Visit Reason Onset Date Comments Previsit 06/25/[address] mark on 07/08/19 Encounter Details Date Type Department Care Team Description 06/25/2019 PRE VISIT [facility] Ivis Marki sit (ov with dr [facility] DO deedee Burton on 07/08/19) [address] [facility] [address] [facility] [address] [place] [address] [place] [id number] (Wo rk) Social History Tobacco Use Types Packs/Day Years Used Date Smoking Tobacco: Never Smokeless Tobacco: Never Alcohol Use Standard Drinks/Week Comments No 0 (1 standard drink = 0.6 oz pure alcoho l) Sex Assigned at Date Recorded Not on file documented as of this encounter Plan of Treatment Upcoming Encounters Date Type Specialty Care Team Description 05/16/2022 Office Visit Cardiology Jorge Luis Mark DO [address] [place] [id number] (Wo rk) documented as of this encounter Visit Diagnoses Not on filedocumented in this encounter Care Teams Consumer Relations Specialist Relationship Specialty Start Date End Date [facility] PCP - General 01/27/16 10/06/20 [address] [place] [address] documented as of this encounter
--- OUTSIDE RECORDS SUMMARY | 2022-02-20 21:14 | XMS_ITS | Encounter Summary ---
:1945 Author Organization [place] Address [address] [place] [address]. [place] [address] Care Team Providers Name Role Phone [place], [facility] Primary Care Provider [phone] Reason for Visit Reason Comments Other pvr Encounter Details Date Type Department Care Team Description 03/20/2017 Office Visit [facility] Jackie Murcia Urinar y retention [facility] (Primary Dx) [address] [place], [place] [address] [place] [address] [phone] [address] (Work) [phone] Social History Tobacco Use Types Packs/Day Years Used Date Smoking Tobacco: Never Smokeless Tobacco: Never Alcohol Use Standard Drinks/Week Comments No 0 (1 standard drink = 0.6 oz pure alcoho l) Sex Assigned at Date Recorded Not on file documented as of this encounter Last Filed Vital Signs Vital Sign Reading Time Taken Comments Blood Pressure - - Pulse 78 03/20/2017 1:27 PM HYDRAULIC OIL TOOL OPERATOR Temperature - - Respiratory Rate - - Oxygen Saturation 98% 03/20/2017 1:27 PM HYDRAULIC OIL TOOL OPERATOR Inhaled Oxygen Concentration - - Weight 81.6 kg (180 lb) 03/20/2017 1:27 PM HYDRAULIC OIL TOOL OPERATOR Height 154.9 cm (5' 1) 03/20/2017 1:27 PM HYDRAULIC OIL TOOL OPERATOR Body Mass Index 34.01 03/20/2017 1:27 PM HYDRAULIC OIL TOOL OPERATOR documented in this encounter Progress Notes Jackie Murcia PA-C - 03/20/2017 1:30 PM CST CC: Urinary retention. HPI: It is a pleasure to see Ms. Racquel Jones, a 71 year old female seen today in the urology clinic in follow up from [place] [facility] for evaluation of urinary retention. This developed acutely on 02/10/17. Dickinson catheter was placed in the ER. U/A negative at that time. The patient has no prior history of AUR or similar symptoms. She has a complicated medical history including DVT, diverticulosis, and recent surgery for enterocutaneous fistula. She had a laparotomy, fistula repair and resection of transverse colon on 01/28/[address] Vasquez. She had been taking Flexeril following this and was discontinued in the ER. She had a ventral wound with a VAC (now discontinued). Currently denies fevers, chills, N/V, abdominal/back pain. Passed TOV last month in our office. Here for PVR. Past Medical History: Diagnosis Date ??? Hernia, [...] above in the HPI. PHYSICAL EXAM: Vitals: 03/20/17 1327 Pulse: 78 SpO2: 98% Weight: 81.6 kg (180 lb) Height: 1.549 [...] pleasant and agreeable during interview and exam. PVR 0 ASSESSMENT/PLAN: 71 year old female who developed acute urinary retention requiring Dickinson catheter placement, likely medication related, resolved. PVR normal and she is emptying well. RTO as needed. I have enjoyed participating in the medical care of this very pleasant patient. Please don't hesitate to contact me with any questions or concerns. Jackie Murcia PA-C [facility] Urology 10 min spent with the patient, >50% of this time was spent in a [id number] manner and on coordination of care. AULIC OIL TOOL OPERATOR documented in this encounter Nursing Notes Yolanda Geiger CMA - 03/20/2017 1:30 PM CST Pt states she is drinking more water and that seems to be helping. Pvr=0 Pt is still in po pain. In abd. Pt states Tylenol helps with the pain. Pt denies dysuira. Felicia Geiger CMA AULIC OIL TOOL OPERATOR documented in this encounter Plan of Treatment Upcoming Encounters Date Type Specialty Care Team Description 05/16/2022 Office Visit Cardiology Jorge Luis Akers DO [address] [place] [address] (Wo rk) documented as of this encounter Procedures Procedure Name Priority Date/Time Associated Diagnosis Comme nts BLADDER SCAN Routine 03/20/2017 Urinary retention Results fo r this procedure are in the resu lts section. documented in this encounter Results Bladder scan (03/20/2017) P athologist Signature Residual Volume 0 (RV) (External) Jackie Murcia PA-C IP NURSING GI/ documented in this encounter Visit Diagnoses Diagnosis Urinary retention - Primary Retention of urine, unspecified documented in this encounter Care Teams Raw Scales Operator Relationship Specialty Start Date End Date [facility] PCP - General 01/27/16 10/06/20 [address] [place] [address] documented as of this encounter
--- OUTSIDE RECORDS SUMMARY | 2022-02-20 21:14 | XMS_ITS | Encounter Summary ---
:1945 Author Organization [place] Address [address] [place] [address]. [place] [address] Care Team Providers Name Role Phone [place], [facility] Primary Care Provider [phone] Reason for Visit CV Testing (Routine) - Closed Specialty Diagnoses / Procedures Referred By Contact Refer red To Contact Cardiology Diagnoses Precordial pain Omar Malave MD Cardiac Services Procedures Echocardiogram Dobutamine Stress HC DOPPLER ECHO PULSED, F/U OR LIMITED HC DOPPLER ECHO COLOR FLOW VELOCITY MAP HC ECHO HEART XTHORACIC, STRESS/REST HC ECHO TRANSTHORACIC, STRESS/REST W CONTRAST [facility] [address] [facility] HC ECHO TRANSTHORACIC, STRES S/REST W/O CONTRAST HC IV PUSH SINGLE, INITIAL SUBSTANCE C INJECTION, PERFLUTREN LIPID MICROSPHERES, PER ML HC STATISTIC IV PUSH SINGLE INIT[place] [address] [address] [place], [place] [address] Referral ID Status Reason Start Date Expiration Date Visits Requ ested Visits Authorized [id number] Closed 09/04/2018 09/04/2019 1 1 Encounter Details Date Type Department Care Team Description 09/09/2018 Hospital Encounter [facility] Omar Malave, Precordial pain [facility] Heart MD Care [facility] [address] [place] [address] [address] [place], [place] [phone] [id number] Social History Tobacco Use Types Packs/Day Years Used Date Smoking Tobacco: Never Smokeless Tobacco: Never Alcohol Use Standard Drinks/Week Comments No 0 (1 standard drink = 0.6 oz pure alcoho l) Sex Assigned at Date Recorded Not on file documented as of this encounter Medications at [...] [address] [place] [id number] (Wo rk) documented as of this encounter Procedures Procedure Name Priority Date/Time Associated Comments Diagnosis ECHO DOBUTAMINE Routine 09/10/2018 1:00 PM Precordial pain Res ults for this STRESS WITH CONTRAST CDT procedu re are in the results section. documented in this encounter Results ECHO DOBUTAMINE STRESS WITH CONTRAST (09/10/2018 1:00 PM CDT) Anatomical Region Laterality Modality Echocardiography Specimen (Source) Anatomical Collection Method Collection Time Re ceived Time Location / / Volume Laterality 09/10/2018 12:15 PM CDT Narrative 09/10/2018 3:48 PM CDT [id number]^HETT^OMAR^BECCA [facility] Echocardiography Laboratory [address] [place] [address] Name: RACQUEL CHEEMA : 1945 Study Date: 09/10/2018 12:15 PM Age: 72 yrs Gender: Female Patient Location: [facility] Reason For Study: Precordial pain History: HTN Ordering Physician: OMAR MALAVE Referring Physician: OMAR MALAVE Performed By: Rosetta Downey RDCS BSA: 1.8 m2 Height: 61 in Weight: 180 lb HR: 92 BP: 142/65 mmHg Medications: Atenolol,Lasix __ Procedure Dobutamine Echo Complete. Contrast Optis on. __ Interpretation Summary Dobutamine stress echo was performed. Th e maximum dose of dobutamine was 20mcg/kg/min. The EKG portion of this stress test was negative for inducible ischemia (see echo results below). Normal resting wall motion and no stress -induced wall motion abnormality. __ Stress The drug infusion was stopped due to tar get heart rate achieved. The maximum dose of dobutamine was 20mcg /kg/min. The maximum dose of metoprolol was 2mg. Target Heart Rate was achieved. The EKG portion of this stress test was negative for inducible ischemia (see echo results below). Arrhythmia induced during stress: >3-solange t run of ventricular tachycardia. At target heart rate with Dobutamine lef t ventricular size decreases. At target heart rate with Dobutamine, gl obal left ventricular function augments. Normal resting wall motion and no stress -induced wall motion abnormality. This was a normal stress echocardiogram with no evidence of stress-induced ischemia. The visual ejection fraction is estimate d at >70%. Baseline The patient is in normal sinus rhythm. Normal left ventricular function and wal l motion at rest. Stress Results ? Protocol: ??Dobutamine ?Maximum Predicted HR: ?? 148 bpm ? Target HR: 126 bpm ? % Maximum Predicted HR: 95 % ?Stage ? ?DurationHeart Rate ??BP ??Dose ? (mm:ss) ?? (bpm) ? Stage 1 ? ? 3:00 ?83 ?169/5410.00 ? Stage 2 ? ? 3:48 ? 141 ?160/7020.00 ?RecoveryR 10:00 ?82 ?127/612.00 ? Stress Duration: ?? 6:48 mm:ss * ?Recovery Time: 10:00 mm:ss ? Maximum Stress HR: 141 bpm * Mitral Valve There is no mitral regurgitation noted. Tricuspid Valve There is mild (1+) tricuspid regurgitati on. Aortic Valve No aortic regurgitation is present. __ Doppler Measurements & Calculations Ao V2 max: 134.7 cm/sec Ao max P.0 mmHg AI P1/2t: 633.9 msec TR max amanuel: 271.5 cm/sec TR max P.5 mmHg __ Report approved by: Nate Polo 08/21 03:48 PM Procedure Note Elvin Arredondo MD - 09/10/2018Formatt ing of this note might be different from the original. [id number] [facility] [id number]^IWONA^OMAR^BECCA [facility] Echocardiography Laboratory [address] [place] [address] Name: RACQUEL CHEEMA : 1945 Study Date: 09/10/2018 12:15 PM Age: 72 yrs Gender: Female Patient Location: [facility] Reason For Study: Precordial pain History: HTN Ordering Physician: OMAR MALAVE Referring Physician: OMAR MALAVE Performed By: Rosetta Downey RDCS BSA: 1.8 m2 Height: 61 in Weight: 180 lb HR: 92 BP: 142/65 mmHg Medications: Atenolol,Lasix __ Procedure Dobutamine Echo Complete. Contrast Optis on. __ Interpretation Summary Dobutamine stress echo was performed. Th e maximum dose of dobutamine was 20mcg/kg/min. The EKG portion of this stress test was negative for inducible ischemia (see echo results below). Normal resting wall motion and no stress -induced wall motion abnormality. __ Stress The drug infusion was stopped due to tar get heart rate achieved. The maximum dose of dobutamine was 20mcg /kg/min. The maximum dose of metoprolol was 2mg. Target Heart Rate was achieved. The EKG portion of this stress test was negative for inducible ischemia (see echo results below). Arrhythmia induced during stress: >3-solange t run of ventricular tachycardia. At target heart rate with Dobutamine lef t ventricular size decreases. At target heart rate with Dobutamine, gl obal left ventricular function augments. Normal resting wall motion and no stress -induced wall motion abnormality. This was a normal stress echocardiogram with no evidence of stress-induced ischemia. The visual ejection fraction is estimate d at >70%. Baseline The patient is in normal sinus rhythm. Normal left ventricular function and wal l motion at rest. Stress Results Protocol: Dobutamine Maximum Predicted HR: 148 bpm Target HR: 126 bpm % Maximum Predicted HR: 95 % Stage DurationHeart Rate BP Dose (mm:ss) (bpm) Stage 1 3:00 83 169/5410.00 Stage 2 3:48 141 160/7020.00 RecoveryR 10:00 82 127/612.00 Stress Duration: 6:48 mm:ss * Recovery Time: 10:00 mm:ss Maximum Stress HR: 141 bpm * Mitral Valve There is no mitral regurgitation noted. Tricuspid Valve There is mild (1+) tricuspid regurgitati on. Aortic Valve No aortic regurgitation is present. __ Doppler Measurements & Calculations Ao V2 max: 134.7 cm/sec Ao max P.0 mmHg AI P1/2t: 633.9 msec TR max amanuel: 271.5 cm/sec TR max P.5 mmHg __ Report approved by: Nate Polo 08/21 03:48 PM Omar Malave MD CV ECHO ORDERABLES documented in this encounter Visit Diagnoses Diagnosis Precordial pain documented in this encounter Care Teams Bass Mechanism Maker Relationship Specialty Start Date End Date [place], [facility] PCP - General 01/27/16 10/06/20 [address] [place] [address] documented as of this encounter
--- OUTSIDE RECORDS SUMMARY | 2022-02-20 21:14 | XMS_ITS | Encounter Summary ---
:1945 Author Organization [place] Address [facility] [place] [address] Care Team Providers Name Role Phone Unavailable Primary Care Provider Unavailable Encounter Details Date Type Department Care Team Description 03/07/2006 Results Only [facility] Isai Hillman MD [facility] Results [place] [address] (Wo rk) Social History Tobacco Use Types Packs/Day Years Used Date Smoking Tobacco: Never Assessed Sex Assigned at Date Recorded Not on file documented as of this encounter Plan of Treatment Upcoming Encounters Date Type Specialty Care Team Description 05/16/2022 Office Visit Cardiology Jorge Luis Akers, DO [address] [facility] [address] [place] [address] (Wo rk) documented as of this encounter Procedures Procedure Name Priority Date/Time Associated Diagnosis Comme [facility] RT DUPLEX Routine 03/07/2006 3:16 PM Results for this EXTREM VENOUS,UNI ROR ENGINEER procedure are in OR LTD the results section. documented in this encounter Results RT DUPLEX EXTREM VENOUS,UNI OR LTD (03/07/2006 3:16 PM ROR ENGINEER) Anatomical Region Laterality Modality Other Specimen (Source) Anatomical Collection Method Collection Time Re ceived Time Location / / Volume Laterality 03/07/2006 3:16 PM ROR ENGINEER Impressions 03/07/2006 3:32 PM ROR ENGINEER Right leg venous ultrasound History: [ right leg pain,swelling,rule out DVT ??] FINDINGS: ?There is no evidence for deep vein thrombus in the right common femoral, superficial femoral, pop liteal, or visualized portions of posterior tibial veins. IMPRESSION: 1. Negative for deep vein thrombus. Righ t leg Isai Hillman MD SPECIAL IMAGING STUDIES documented in this encounter Visit Diagnoses Not on filedocumented in this encounter
--- OUTSIDE RECORDS SUMMARY | 2022-02-20 21:14 | XMS_ITS | Encounter Summary ---
:1945 Author Organization [place] Address [facility] [place] [address] Care Team Providers Name Role Phone [facility] Primary Care Provider [phone] Ivis Akers DO Unavailable [phone] Yesenia Granger MD Unavailable Eloise Malave MD Primary Care Provider Ayala Lemos APRN COBOL DEVELOPER Unavailable [phone] Malina Parra MD Unavailable Tiffanie Lomeli PA-C Unavailable [phone] Ivis Akers DO Unavailable [phone] Encounter Details Date Type Department Care Team Description 11/26/2016 Records - [facility] CONVERSION Scan, Non-Provider Social History Tobacco Use Types Packs/Day Years Used Date Smoking Tobacco: Never Alcohol Use Standard Drinks/Week Comments No 0 (1 standard drink = 0.6 oz pure alcoho l) Sex Assigned at Date Recorded Not on file documented as of this encounter Plan of Treatment Upcoming Encounters Date Type Specialty Care Team Description 05/16/2022 Office Visit Cardiology Jorge Luis Akers DO [address] [facility] [address] [place], [place] [address] (Wo rk) documented as of this encounter Visit Diagnoses Not on filedocumented in this encounter Care Teams Book Sewing Machine Operator Relationship Specialty Start Date End Date [facility] PCP - General 01/27/16 1 Medical [address] [place] [address] Eloise Malave MD PCP - General Family Medicine 10/07/20 [facility] [address] [place], [place] [id number] Ivis Akers Assigned Heart and 02/12/2010/01 DO Shira Vascular Provider [address] [place] [address] Yesenia Granger Assigned Surgical 03/13/20 2 MD Crow Provider [address] [facility] [address] [place] [address] Ayala Lemos, Assigned Heart and 10/02/20 COMMERCIAL LIGHT FIXTURE ASSEMBLER COBOL DEVELOPER Vascular Provider [address] [place] [address] Malina Parra Assigned Sleep 11/27/20 12/31/20 MD Gio Provider [address] [place] [address] Tiffanie Lomeli Assigned Sleep 01/01/21 RAOUL Garcia Provider [address] [place] [address] Ivis Akers MD Cardiovascular Disease 01/05/22 DO Shira [address] [place] [address] documented as of this encounter
--- OUTSIDE RECORDS SUMMARY | 2022-02-20 21:14 | XMS_ITS | Encounter Summary ---
:1945 Author Organization [place] Address [address] [place] [address]. [place] [address] Care Team Providers Name Role Phone [place], [facility] Primary Care Provider [phone] Reason for Visit (Routine) - Closed Specialty Diagnoses / Procedures Referred By Contact Refer red To Contact Cardiology Diagnoses atenelol- clinic called to schedule will give pt instructions to hold BB /saturday Zz Rh Echocardiography Procedures ECH STRESS TEST [address] [place], [place] [address] Phone: Referral ID Status Reason Start Date Expiration Date Visits Requ ested Visits Authorized [id number] Closed 01/27/2016 01/26/2017 1 1 Encounter Details Date Type Department Care Team Description 01/27/2016 Hospital Encounter [facility] Omar Malave SO B (shortness of breath); Cardiopulmonary MD Chest pain, unspecified type [address] [place] [facility] [address] CLINIC [phone] [address] [place] [address] Social History Tobacco Use Types Packs/Day Years Used Date Smoking Tobacco: Never Assessed Sex Assigned at Date Recorded Not on file documented as of this encounter Progress Notes Safia De RT - 01/27/2016 10:20 AM CDT Stress echo completed. No cp with exertion, some sob. Target HR achieved. documented in this encounter Plan of Treatment Upcoming Encounters Date Type Specialty Care Team Description 05/16/2022 Office Visit Cardiology Jorge Luis Akers DO [address] [place] [id number] (Wo rk) documented as of this encounter Procedures Procedure Name Priority Date/Time Associated Diagnosis Comme nts ECHO STRESS TEST Routine 01/27/2016 10:25 AM SOB (shortness of Results for this CDT breath) procedure are in Chest pain, the results unspecified type section. documented in this encounter Results Exercise Stress Echocardiogram (01/27/2016 10:25 AM CDT) Anatomical Region Laterality Modality Echocardiography Specimen (Source) Anatomical Collection Method Collection Time Re ceived Time Location / / Volume Laterality 01/27/2016 10:11 AM CDT Narrative 01/27/2016 11:04 AM CDT Interpretation Summary [facility] [address] [place] [address] Name: RACQUEL CHEEMA : 1945 Study Date: 01/27/2016 10:11 AM Age: 70 yrs Gender: Female Patient Location: [facility] Reason For Study: , Shortness of breath, Chest pain, unspecified History: Family HiSedentary,Stroke,High cholester ol,Dyspnea On Exertion, Ordering Physician: OMAR MALAVE Referring Physician: OMAR MALAVE Performed By: Norman Sky RDCS BSA: 1.9 m2 Height: 62 in Weight: 190 lb HR: 83 BP: 142/84 mmHg Medications: Atenolol,Zocor Procedure Stress Echo Complete. Interpretation Summary 1. Reduced functional capacity. 2. Negative Stress EKG for ischemia. 3. Negative Stress echocardiogram for is chemia. 4. HR response to exercise suggests deco nditioning. Stress RPP 21,920. The patient exhibited no chest pain duri ng exercise. Exercise was stopped due to fatigue. The Rahman treadmill score was low risk ( >5 Rahman score). A low workload was achieved. This was a normal stress echocardiogram with no evidence of stress-induced ischemia. Baseline The visual ejection fraction is estimate d at 60-65%. No regional wall motion abnormalities no elizabeth. Stress Results ? Protocol: MODIFIED VERENICE ? Maximum Predicted HR: ??150 bpm ?Target HR: ? 128 bpm% Max ? imum Predicted HR: ?? 91 % +---------+--------+ +------+-- + : ? :Duration: ??Heart ?? : ?: ?: : ??Stage ??:(mm:ss) : ?? Rate ?? : ??BP Com ?ment ?: : ? : ?: ??(bpm) ?? : ?: ?: +---------+--------+ +------+-- + : Stage 1 : ??3:00 11 ? 7 ?:150/ 82: ?: +---------+--------+ +------+-- + : Stage 2 : ??3:00 13 ? 1 ?:158/ 80: ?: +---------+--------+ +------+-- + :Recovery : ??6:00 87 ?:152 /86:Rahman score 6 (low risk). FAC below ?: : ? : ?: ?: ?:avg. ?: +---------+--------+ +------+-- + ? Stress Duration: ??6:00 mm:ss * ?Recovery Time: 6:00 mm:ss ?Maximum Stress HR: ?? 137 bpm * M ?ETS: ?3 Left Ventricle The left ventricular ejection fraction i s normal. Tricuspid Valve There is trace to mild tricuspid regurgi tation. Aortic Valve There is trace to mild aortic regurgitat ion. Pericardium There is no pericardial effusion. Doppler Measurements & Calculations TR max amanuel: 293.8 cm/sec TR max P.5 mmHg Report approved by: Juvenal Mcgrath on 01/27/2016 11:04 AM Procedure Note Roz Mcgrath MD - 01/27/2016F ormatting of this note might be different from the original. Interpretation Summary [facility] [address] [facility] [place] [id number] Name: RACQUEL CHEEMA : 1945 Study Date: 01/27/2016 10:11 AM Age: 70 yrs Gender: Female Patient Location: [facility] Reason For Study: , Shortness of breath, Chest pain, unspecified History: Family HiSedentary,Stroke,High cholester ol,Dyspnea On Exertion, Ordering Physician: OMAR MALAVE Referring Physician: OMAR MALAVE Performed By: Norman Sky RDCS BSA: 1.9 m2 Height: 62 in Weight: 190 lb HR: 83 BP: 142/84 mmHg Medications: Atenolol,Zocor Procedure Stress Echo Complete. Interpretation Summary 1. Reduced functional capacity. 2. Negative Stress EKG for ischemia. 3. Negative Stress echocardiogram for is chemia. 4. HR response to exercise suggests deco nditioning. Stress RPP 21,920. The patient exhibited no chest pain duri ng exercise. Exercise was stopped due to fatigue. The Rahman treadmill score was low risk ( >5 Rahman score). A low workload was achieved. This was a normal stress echocardiogram with no evidence of stress-induced ischemia. Baseline The visual ejection fraction is estimate d at 60-65%. No regional wall motion abnormalities no elizabeth. Stress Results Protocol: MODIFIED VERENICE Maximum Predic elizabeth HR: 150 bpm Target HR: 128 bpm% Max imum Predicted HR: 91 % +---------+--------+ +------+-- + : :Duration: Heart : : : : Stage :(mm:ss) : Rate : BPCom ment : : : : (bpm) : : : +---------+--------+ +------+-- + : Stage 1 : 3:00 11 7 :150/82: : +---------+--------+ +------+-- + : Stage 2 : 3:00 13 1 :158/80: : +---------+--------+ +------+-- + :Recovery : 6:00 87 :152/86:Rahman score 6 (low risk). FAC below : : : : : :avg. : +---------+--------+ +------+-- + Stress Duration: 6:00 mm:ss * Recovery Time: 6:00 mm:ss Maximum Stress HR: 137 bpm *M ETS: 3 Left Ventricle The left ventricular ejection fraction i s normal. Tricuspid Valve There is trace to mild tricuspid regurgi tation. Aortic Valve There is trace to mild aortic regurgitat ion. Pericardium There is no pericardial effusion. Doppler Measurements & Calculations TR max amanuel: 293.8 cm/sec TR max P.5 mmHg Report approved by: Juvenal Mcgrath on 01/27/2016 11:04 AM Omar Malave MD CV ECHO ORDERABLES documented in this encounter Visit Diagnoses Diagnosis SOB (shortness of breath) Shortness of breath Chest pain, unspecified type documented in this encounter Care Teams Front End Driver Relationship Specialty Start Date End Date [facility] Medical PCP - General 01/27/16 10/06/20 [address] [place] [address] documented as of this encounter
--- OUTSIDE RECORDS SUMMARY | 2022-02-20 21:14 | XMS_ITS | Encounter Summary ---
:1945 Author Organization [facility] Address [address] [place] [address]. [place] [address] Care Team Providers Name Role Phone [facility] Primary Care Provider [phone] Encounter Details Date Type Department Care Team Description 11/16/2016 - [facility] 3 [facility] Jenni Burnham MD [facility] [address] [place], [place] [id number] Depression; 11/28/2016 Encounter [address] [facility] David Gayle MD [address] [place], [place] [id number] Abdominal wall abscess; [place], [place] Enterocutaneo us fistula; [id number] Surgical wound, non healing, initial encounter; Non-healing kateryna gical wound, subsequent encounter; Chronic diastol ic heart failure (H); DVT, lower extr emity (H) Social History Tobacco Use Types Packs/Day [...] - Inhaled Oxygen Concentration - - Weight 75.9 kg (167 lb 6.4 oz) 11/28/2016 8:39 AM CDT Height 154.9 cm (5' 1) 11/16/2016 12:44 PM CDT Body Mass Index 31.63 11/16/2016 12:44 PM CDT documented in this encounter Discharge Summaries Jenni Burnham MD - 11/28/2016 10:42 AM CDT Physician Discharge Summary Primary Care Physician: Eloise Malave MD Discharge Provider: Jenni Burnham Admission Date: 11/16/2016. Admission Diagnoses: Enterocutaneous fistula Discharge Date: November 28, 2016 Date of Service: 11/28/2016 Disposition: Home with home care Condition at Discharge: Stable Code Status: Full Code Principal Diagnosis: Enterocutaneous fistula Discharge Diagnoses: Principal Problem: Enterocutaneous fistula Active Problems: Abdominal wall abscess Essential hypertension Chronic diastolic heart failure Physical deconditioning Insomnia DVT, lower extremity Open abdominal wall wound, sequela Onychomycosis Onychauxis Adjustment disorder with mixed anxiety and depressed mood Consult/s: Wound care, plastic surgery, psychiatry, psychology Patient is a pleasant 71-year-old female with past medical history of lower extremity DVT, small bowel obstruction, incarcerated ventral hernia who had repair of incarcerated ventral hernia on 07/26/2016with multiple postoperative complications including wound dehiscence, abdominal wall abscesses and required further surgeries. Patient was discharged to TCU on 09/27/2016. Patient seen in the clinic by Dr. Vasquez with persistent drainage from old ED site. Patient returned to [facility] with left abdominal wall abscess. CT scan showed multiple areas of air containing abscesses within the soft tissue of ventral abdominal wall. She was started on IV antibiotics and a wound VAC was placed which was later on discontinued due to brownish purulent drainage from the EC fistula. Patient was transferred to [facility] for continued complex nonhealing open abdominal wall wound and EC fistula. She is on TPN and n.p.o. Currently receiving antibiotics for 1 more week. ?? Hospital Summary: ?? Abscess of postoperative wound of abdominal wall S/P repair of incancerated ventral hernia on 07/27/16: Now with low output enterocutaneous fistula butstill significant and a complex open nonhealing abdominal wound. ??Patient is n.p.o. ??Continue TPN.??Goal is to improve nutrition with decrease in drainage from??EC fistula. ??Pain controlled with as needed Dilaudid. Pt had follow up CT abdomen on 11/26/16. ANTERIOR ABDOMINAL WALL: There is a mesh graft demonstrated across a ventral hernia. There is fluid and air in the anterior abdominal wall which involves both the mesh graft as well as soft tissues of the anterior abdominal wall consistent with enterocutaneous fistulae. There are appliances present over the lower anterior abdominal wall which are collecting the drainage from the fistulae. There is marked stranding in the anterior abdominal wall soft tissues. The fistulae are draining to the three sites which are covered with appliances adhered to the anterior abdominal wall noted on image 101, 109, and 108. ?? discussed CT scan findings with Dr. Vasquez. Plan to continue current treatment. Continue n.p.o., okay with ice chips. Continue TPN. Follow-up with Dr. Vasquez in 2-3 weeks. Okay to take ice chips and medication by mouth. ?? Non healing midline open abdominal wound with EC fistula: wound is healing. Fistula cont draining but output is decreasing. ? Abdominal wall abscesses: resolved. completed IV ceftriaxone and Flagyl. ? Chronic diastolic heart failure:??Stable with Lasix 40 mg daily and atenolol Essential Hypertension:??Well controlled with atenolol and Lasix Lower extremity DVT: On??therapeutic dose of Lovenox. ??Monitor hemoglobin, no evidence of bleeding.Lovenox switched to Rivaroxaban( Xarelto) at discharge. ? Severe Malnutrition:??prealbumin 17.2.??Patient is currently on TPN ? Pure hypercholesterolemia:??Statins on hold as patient is n.p.o. ? Adjustment disorder:?? Started on Lexapro on 11/22. Patient had episodes of severe anxiety and panic attacks during stay at [facility]. She was seen by psychiatry and psychology. Discharge Medications: Medication List START taking these medications atenolol 50 MG tablet Commonly known as: TENORMIN Take 1 tablet (50 mg total) by mouth daily. Continue current TPN formula Infuse into a venous catheter continuous. escitalopram oxalate 10 MG tablet Commonly known as: LEXAPRO Take 1 tablet (10 mg total) by mouth daily. fat emulsion 20 % infusion Commonly known as: INTRALIPID,LIPOSYN See separate TPN orders- Gets 250 ml daily FIVE times a week (M,T,W,Th,F) furosemide 40 MG tablet Commonly known as: LASIX Take 1 tablet (40 mg total) by mouth daily. HYDROmorphone 2 MG tablet Commonly known as: DILAUDID Take 1 tablet (2 mg total) by mouth every 8 (eight) hours as needed for pain (can also use before dressing changes). Replaces: HYDROmorphone 1 mg/mL injection ondansetron 4 MG disintegrating tablet Commonly known as: ZOFRAN-ODT Take 1 tablet (4 mg total) by mouth every 6 (six) hours as needed. rivaroxaban 20 mg Tab Take 1 tablet (20 mg total) by mouth daily with supper. STOP taking these medications cefTRIAXone 1 g in NaCl 0.9 % 0.9 % 50 mL IVPB diphenhydrAMINE 50 mg/mL injection Commonly known as: BENADRYL enoxaparin 300 mg/3 mL Soln Commonly known as: LOVENOX HYDROmorphone 1 mg/mL injection Commonly known as: DILAUDID Replaced by: HYDROmorphone 2 MG tablet metroNIDAZOLE 500 mg/100 mL IVPB Commonly known as: FLAGYL nystatin 100,000 unit/mL suspension Commonly known as: MYCOSTATIN ondansetron 4 mg/2 mL injection Commonly known as: ZOFRAN TPN CUSTOM FORMULA HE Where to Get Your Medications These medications were sent to [id number] [id number] [address], [facility] [id number] ??? furosemide 40 MG tablet You can get these medications from any pharmacy Bring a paper prescription for each of these medications ??? atenolol 50 MG tablet ??? escitalopram oxalate 10 MG tablet ??? fat emulsion 20 % infusion ??? HYDROmorphone 2 MG tablet ??? ondansetron 4 MG disintegrating tablet ??? rivaroxaban 20 mg Tab Information about where to get these medications is not yet available ! Ask your nurse or doctor about these medications ??? Continue current TPN formula Discharge Instructions: Follow up appointment with Primary Care Physician: Eloise Malave MD Follow up appointment with Specialist: Dr. Fontanez in 2-3 weeks Follow up test / procedure to do as outpatient: BMP, hemogram 2 times a week while patient is on TPN Diet: n.p.o. Patient can take ice chips. Continue TPN Activity: activity as tolerated Restrictions: None Wound / drain care:as directed Vital Signs in last 24 hours: Temp: [98 ??F (36.7 ??C)-98.9 ??F (37.2 ??C)] 98.6 ??F (37 ??C) Heart Rate: [76-81] 81 Resp: [17-18] 18 BP: (94-120)/(51-56) 120/56 Physical Exam: Pertinent exam findings on day of discharge include General Appearance:??NAD Neck:??Supple, symmetrical, trachea midline, no adenopathy; ? Lungs:??Clear to auscultation bilaterally, respirations unlabored Heart:??Regular rate and rhythm, S1 and S2 normal, no murmur, rubs or gallop Abdomen:??Soft, non-tender, 2 stoma bags on midline and R lateral portion with thick brownish/yellowish drainage. Extremities:??Extremities normal, atraumatic, no cyanosis or edemat. ?? Skin:open nonhealing abdominal wound with midline EC fistula with yellowish/brown drainage. No bleeding. Neurologic:??normal and equal strength bilat in upper and lower extremities ?? Significant Diagnostic Studies: Pertinent Labs Personally reviewed. Results for orders placed or performed during the hospital encounter of 11/16/16 Obtain MRSA screen of nares Result Value Ref Range Culture No MRSA isolated Protime-INR Result Value Ref Range INR 1.10 0.90 - 1.10 Magnesium Result Value Ref Range Magnesium 1.6 (L) 1.8 - 2.6 mg/dL Phosphorus Result Value Ref Range Phosphorus 4.2 2.5 - 4.5 mg/dL Prealbumin Result Value Ref Range Prealbumin 17.2 (L) 19.0 - 38.0 mg/dL Comprehensive metabolic panel Result Value Ref Range Sodium 138 136 - 145 mmol/L Potassium 3.8 3.5 - 5.0 mmol/L Chloride 105 98 - 107 mmol/L CO2 27 22 - 31 mmol/L Anion Gap, Calculation 6 5 - 18 mmol/L Glucose 98 70 - 125 mg/dL BUN 11 8 - 28 mg/dL Creatinine 0.52 (L) 0.60 - 1.10 mg/dL GFR MDRD Af Amer >60 >60 mL/min/1.73m2 GFR MDRD Non Af Amer >60 >60 mL/min/1.73m2 Bilirubin, Total 0.2 0.0 - 1.0 mg/dL Calcium 8.4 (L) 8.5 - 10.5 mg/dL Protein, Total 6.0 6.0 - 8.0 g/dL Albumin 2.4 (L) 3.5 - 5.0 g/dL Alkaline Phosphatase 52 45 - 120 U/L AST 16 0 - 40 U/L ALT 8 0 - 45 U/L Hyperal Lytes Result Value Ref Range BUN 11 8 - 28 mg/dL Calcium 8.4 (L) 8.5 - 10.5 mg/dL Chloride 105 98 - 107 mmol/L CO2 27 22 - 31 mmol/L Creatinine 0.52 (L) 0.60 - 1.10 mg/dL GFR MDRD Af Amer >60 >60 mL/min/1.73m2 GFR MDRD Non Af Amer >60 >60 mL/min/1.73m2 Glucose 98 70 - 125 mg/dL Potassium 3.8 3.5 - 5.0 mmol/L Magnesium 1.6 (L) 1.8 - 2.6 mg/dL Sodium 138 136 - 145 mmol/L Phosphorus 4.2 2.5 - 4.5 mg/dL HM1 (CBC with Diff) Result Value Ref Range WBC 4.4 4.0 - 11.0 thou/uL RBC 3.48 (L) 3.80 - 5.40 mill/uL Hemoglobin 9.5 (L) 12.0 - 16.0 g/dL Hematocrit 29.6 (L) 35.0 - 47.0 % MCV 85 80 - 100 fL MCH 27.3 27.0 - 34.0 pg MCHC 32.1 32.0 - 36.0 g/dL RDW 12.5 11.0 - 14.5 % Platelets 316 140 - 440 thou/uL MPV 9.2 8.5 - 12.5 fL Manual Differential Result Value Ref Range Total Neutrophils % 60 50 - 70 % Lymphocytes % 26 20 - 40 % Monocytes % 11 (H) 2 - 10 % Eosinophils % 3 0 - 6 % Basophils % 0 0 - 2 % Total Neutrophils Absolute 2.6 2.0 - 7.7 thou/ul Lymphocytes Absolute 1.1 0.8 - 4.4 thou/uL Monocytes Absolute 0.5 0.0 - 0.9 thou/uL Eosinophils Absolute 0.1 0.0 - 0.4 thou/uL Basophils Absolute 0.0 0.0 - 0.2 thou/uL Reactive Lymphocytes 1+ (!) Negative Platelet Estimate Normal Normal TPN Panel Result Value Ref Range Sodium 136 136 - 145 mmol/L Potassium 3.9 3.5 - 5.0 mmol/L Chloride 104 98 - 107 mmol/L CO2 25 22 - 31 mmol/L Glucose 101 70 - 125 mg/dL BUN 16 8 - 28 mg/dL Creatinine 0.52 (L) 0.60 - 1.10 mg/dL GFR MDRD Af Amer >60 >60 mL/min/1.73m2 GFR MDRD Non Af Amer >60 >60 mL/min/1.73m2 Calcium 8.2 (L) 8.5 - 10.5 mg/dL Bilirubin, Total 0.2 0.0 - 1.0 mg/dL Phosphorus 3.8 2.5 - 4.5 mg/dL Protein, Total 6.1 6.0 - 8.0 g/dL Alkaline Phosphatase 54 45 - 120 U/L AST 15 0 - 40 U/L Magnesium 1.7 (L) 1.8 - 2.6 mg/dL Triglycerides 139 <=149 mg/dL Prealbumin 17.8 (L) 19.0 - 38.0 mg/dL Albumin 2.6 (L) 3.5 - 5.0 g/dL INR Result Value Ref Range INR 1.04 0.90 - 1.10 Hyperal Lytes Result Value Ref Range BUN 15 8 - 28 mg/dL Calcium 8.3 (L) 8.5 - 10.5 mg/dL Chloride 102 98 - 107 mmol/L CO2 28 22 - 31 mmol/L Creatinine 0.50 (L) 0.60 - 1.10 mg/dL GFR MDRD Af Amer >60 >60 mL/min/1.73m2 GFR MDRD Non Af Amer >60 >60 mL/min/1.73m2 Glucose 110 70 - 125 mg/dL Potassium 3.3 (L) 3.5 - 5.0 mmol/L Magnesium 1.8 1.8 - 2.6 mg/dL Sodium 137 136 - 145 mmol/L Phosphorus 3.4 2.5 - 4.5 mg/dL Potassium Result Value Ref Range Potassium 3.7 3.5 - 5.0 mmol/L Potassium Result Value Ref Range Potassium 4.3 3.5 - 5.0 mmol/L Potassium Result Value Ref Range Potassium 4.1 3.5 - 5.0 mmol/L Potassium Result Value Ref Range Potassium 4.3 3.5 - 5.0 mmol/L TPN Panel Result Value Ref Range Sodium 132 (L) 136 - 145 mmol/L Potassium 4.6 3.5 - 5.0 mmol/L Chloride 96 (L) 98 - 107 mmol/L CO2 30 22 - 31 mmol/L Glucose 101 70 - 125 mg/dL BUN 18 8 - 28 mg/dL Creatinine 0.52 (L) 0.60 - 1.10 mg/dL GFR MDRD Af Amer >60 >60 mL/min/1.73m2 GFR MDRD Non Af Amer >60 >60 mL/min/1.73m2 Calcium 8.3 (L) 8.5 - 10.5 mg/dL Bilirubin, Total 0.2 0.0 - 1.0 mg/dL Phosphorus 4.2 2.5 - 4.5 mg/dL Protein, Total 6.0 6.0 - 8.0 g/dL Alkaline Phosphatase 63 45 - 120 U/L AST 15 0 - 40 U/L Magnesium 1.7 (L) 1.8 - 2.6 mg/dL Triglycerides 168 (H) <=149 mg/dL Prealbumin 16.7 (L) 19.0 - 38.0 mg/dL Albumin 2.6 (L) 3.5 - 5.0 g/dL INR Result Value Ref Range INR 1.04 0.90 - 1.10 POCT Glucose Result Value Ref Range Glucose, POC 102 mg/dL POCT Glucose Result Value Ref Range Glucose, POC 103 mg/dL POCT Glucose Result Value Ref Range Glucose, POC 125 mg/dL POCT Glucose Result Value Ref Range Glucose, POC >500 mg/dL POCT Glucose Result Value Ref Range Glucose, POC 105 mg/dL POCT Glucose Result Value Ref Range Glucose, POC 145 mg/dL POCT Glucose Result Value Ref Range Glucose, POC 134 mg/dL POCT Glucose Result Value Ref Range Glucose, POC 128 mg/dL POCT Glucose Result Value Ref Range Glucose, POC 128 mg/dL POCT Glucose Result Value Ref Range Glucose, POC 143 mg/dL POCT Glucose Result Value Ref Range Glucose, POC 85 mg/dL POCT Glucose Result Value Ref Range Glucose, POC 112 mg/dL POCT Glucose Result Value Ref Range Glucose, POC 112 mg/dL POCT Glucose Result Value Ref Range Glucose, POC 140 mg/dL POCT Glucose Result Value Ref Range Glucose, POC 147 mg/dL POCT Glucose Result Value Ref Range Glucose, POC 136 mg/dL Pertinent Radiology Radiology Results: Ct Abdomen Pelvis Without Oral With Without Iv Contrast Result Date: 11/26/2016 CT ABDOMEN PELVIS WO ORAL W WO IV CONTRAST 11/26/2016 1:07 PM INDICATION: Follow up abdominal abscesses and ec fistula, Previous CT a/p done at [facility]. TECHNIQUE: CT abdomen and pelvis without contrast and with IV contrast with delayed images. Multiplanar reformation images (MPR). Dose reduction techniques were used.? IV CONTRAST: Iohexol (Omni) 350, 100 mL. COMPARISON: None. FINDINGS: LUNG BASES: Negative. ABDOMEN: Liver normal. High density material demonstrated in the dependent portion of the gallbladder are consistent with gallstones. Stomach and duodenal sweep are normal. Pancreas is normal. Spleen normal. Adrenal glands normal. Kidneys normal without renal calculi or hydronephrosis. ASCVD aorta. Infrarenal aorta 1.3 x 1.5 cm. No periaortic adenopathy. PELVIS: Normal appendix. Sigmoiddiverticulosis without diverticulitis. No abscess. ANTERIOR ABDOMINAL WALL: There is a mesh graft demonstrated across a ventral hernia. There is fluid and air in the anterior abdominal wall which involves both the mesh graft as well as soft tissues of the anterior abdominal wall consistent with enterocutaneous fistulae. There are appliances present over the lower anterior abdominal wall which are collecting the drainage from the fistulae. There is marked stranding in the anterior abdominal wall softtissues. The fistulae are draining to the three sites which are covered with appliances adhered to the anterior abdominal wall noted on image 101, 109, and 108. MUSCULOSKELETAL: Negative. CONCLUSION: 1. Complex fluid collections in the anterior abdominal wall associated with a mesh graftand enterocutaneous fistulae as above. Total time spent on this discharge was greater than 30 minutes of which greater than 50% of the timewas spent on patient care coordination and review of chart. documented in this encounter Medications at Time of Discharge Medication Sig Dispensed Refills Start Date End Date escitalopram (LEXAPRO) 10 Take 15 mg by mouth 0 0 11/28/2016 MG tablet atenolol (TENORMIN) 50 MG Take 50 mg by mouth 0 0 11/28/2016 09/03/2019 tablet furosemide (LASIX) 40 MG Take 20 mg by mouth 0 09/02/2020 tablet ondansetron (ZOFRAN-ODT) 4 Take 4 mg by mouth 0 0 11/28/2016 09/03/2019 MG ODT tab documented as of this encounter Progress Notes Yennifer Jackson RN - 11/28/2016 12:00 PM CDT Pt. Discharged to home via family transport at 1215pm. Pt. Discharged home with PICC line that was heparin locked. [facility] health care nurse, Shira given report by customs entry writer. Pt. Educated on how toempty fistula and old ed site pouch. Roberto Camacho MD - 11/28/2016 10:45 AM CDT Inpatient Followup Psychiatric Evaluation PLAN: Medication Adjustment: We will continue with the current medication regime. I did talk with the patient about my recommendation to continue with the antidepressant for some time during the transition. The home. I also told her about the possibility that she may need that medication long-term. Other: Medical cares and therapies as per the attending team. I will continue to monitor the patient's mood, cognition and behavior. No reports of any new issues or concerns. The plan is to discharge the patient to home with home care today. SUMMARY OF PSYCHIATRIC CARE THIS HOSPITALIZATION: The patient for an initial psychiatric consultation on November 20. She had multiple situational stressors and an extended hospitalization and appear depressed but she requested no psychotropic medicationaddition at that time. On November 22 I did start the patient on low dose Lexapro. On November 24 we increased the Lexapro to 10 mg a day. The patient tolerated the medication and overall seemed to improve with regard to her mood although she still was often anxious and seeking reassurance. At no point did she have any suicidality. No psychosis. She tolerated the medication. On the day of discharge the patient was examined and appeared appropriate for discharge from a psychiatric standpoint. I reviewed with her at that time the current medication regime including the risks and benefits. She was in agreement with the plan. Diagnosis managed and treated at today's visit : [place] I: Major depressive disorder, single episode, moderate to severe, without psychotic features Encephalopathy and possible mood disorder secondary to underlying medical issues including infection and recent surgery, improved [place] II: Deferred [place] III : Please see initial psychiatric consultation note Problem List: Principal Problem: Enterocutaneous fistula Active Problems: Abdominal wall abscess Essential hypertension Chronic diastolic heart failure Physical deconditioning Insomnia DVT, lower extremity Open abdominal wall wound, sequela Onychomycosis Onychauxis Adjustment disorder with mixed anxiety and depressed mood Current Symptoms: Patient tells me she is doing fairly well. She does not believe her mood has changed significantly. She told me she slept well. She minimized any current anxiety or concerns. She was aware and in agreement that she was going home today. She had no questions about that. She denied having any psychosis.She denied having any ideality. She denied side effects to the medication. Mental Status Exam: Appearance: Patient was sitting up. Alert. No obvious pain or shortness of breath. Sporadic eye contact. Behavior: Cooperative and calm today. Not restless or agitated. Speech: Sentence structure is intact. Somewhat vague. Answers were consistent and appropriate. Not pressured or rambling. Mood/Affect: A bit more flat today. Less anxious. Not irritable. Attention and concentration: His needs structure and prompts to participate. Concentration appears fair. Thought Content: No psychosis Suicidal/Homicidal Ideation: None Thought Process: Able to process information. Less perseverative. No racing thoughts. Not loose. Insight: Fair. Please see above Judgement: Fair. Please see above Memory: Grossly intact Gait/Motor Status: No tremor. Please see therapy notes Orientation: Grossly oriented. Please see therapy notes Pertinent History: Racquel Jones is a 71 y.o. female was admitted to the medical service under thecare of the hospitalist team on November 16 of this year. The patient has a history of a DVT in the lower extremity as well as a small bowel obstruction and an incarcerated ventral hernia. She had a mesh repair on July 26 which was complicated postoperatively by wound infection and dehiscence as well as abscess formation. This required further surgery and removal of the mesh and debridements. She was stabilized and discharged to a TCU on September 27 of this year. She had multiple admissions following this due to wound issues. She required IV antibiotics. She has had persistent drainage from an old ED site. T he patient was seen in clinic on November 01 and sent home but there was concern for abscess of the leftside of the abdomen. A CT showed an air-containing abscess which had grown in size. This was in the soft tissues of the ventral abdominal wall. She required I&D and further IV antibiotics. Please see the chart for details. Ultimately she is required a wound VAC and has had multiple other procedures. She was sent here for further assessment and treatment. I been asked to render a psychiatric consultation due to concerns that depression may be compromising her progress here. Current Medications: ??? atenolol 50 mg Oral DAILY ??? escitalopram oxalate 10 mg Oral DAILY ??? fat emulsion 250 mL Intravenous Once per day on Sat ??? furosemide 40 mg Oral DAILY ??? rivaroxaban 20 mg Oral Daily with supper ??? sodium chloride 10-30 mL Intravenous Q8H FIXED TIMES alteplase, bacitracin, dextrose 10%, dextrose 50 % (D50W) OR glucagon (human recombinant), HYDROmorphone, HYDROmorphone, naloxone OR naloxone, ondansetron, polyethylene glycol, sodium chloride,sodium chloride, sodium chloride, nacl 0.9%, white petrolatum Medication Compliance: yes Side Effects to Medications: no Vitals: Wt Readings from Last 3 Encounters: 11/28/16 167 lb 6.4 oz (75.9 kg) Temp Readings from Last 3 Encounters: 11/28/16 98.6 ??F (37 ??C) (Oral) BP Readings from Last 3 Encounters: 11/28/16 120/56 Pulse Readings from Last 3 Encounters: 11/28/16 81 Recent Labs: Recent Results (from the past 48 hour(s)) POCT Glucose Collection Time: 11/26/16 11:49 AM Result Value Ref Range Glucose, POC 136 mg/dL TPN Panel Collection Time: 11/27/16 5:21 AM Result Value Ref Range Sodium 132 (L) 136 - 145 mmol/L Potassium 4.6 3.5 - 5.0 mmol/L Chloride 96 (L) 98 - 107 mmol/L CO2 30 22 - 31 mmol/L Glucose 101 70 - 125 mg/dL BUN 18 8 - 28 mg/dL Creatinine 0.52 (L) 0.60 - 1.10 mg/dL GFR MDRD Af Amer >60 >60 mL/min/1.73m2 GFR MDRD Non Af Amer >60 >60 mL/min/1.73m2 Calcium 8.3 (L) 8.5 - 10.5 mg/dL Bilirubin, Total 0.2 0.0 - 1.0 mg/dL Phosphorus 4.2 2.5 - 4.5 mg/dL Protein, Total 6.0 6.0 - 8.0 g/dL Alkaline Phosphatase 63 45 - 120 U/L AST 15 0 - 40 U/L Magnesium 1.7 (L) 1.8 - 2.6 mg/dL Triglycerides 168 (H) <=149 mg/dL Prealbumin 16.7 (L) 19.0 - 38.0 mg/dL Albumin 2.6 (L) 3.5 - 5.0 g/dL INR Collection Time: 11/27/16 5:21 AM Result Value Ref Range INR 1.04 0.90 - 1.10 We will continue with the structure and support of the unit, reassurance, and redirection. Staff monitoring and ongoing assessments per team plan. Current psychotropic medication appears to represent the minimum effective dosage and appears medically necessary. We will continue to monitor and reassess. I will be available if concerns or problems arise. Much or all of the text in this note was generated through the use of [employer] [id number] software. Errors in spelling or words which seem out of context are unintentional. Sound alike errors,in particular, may have escaped editing. Roberto Camacho Nati Davenport - 11/28/2016 10:09 AM CDT Clinical Social Work - Discharge Note Plan: ?? Discharge Date: 11/28/16 ?? Disposition (include location/agency name, phone #, fax # and additional info): [x] Other: Home with [facility] ?? Additional Discharge Information / Recommendation: IMM Signed. [x]Primary Community MD / Clinic (include phone #): Dr. Eloise Le, [facility], Subjective Data: Pt advised and Hospitalist she is discharging to home as soon as medically stable to do so. Kellys been communicating with pt and pt's daughter Jluis to ensure pt has an appropriate and safe discharge plan in place. Objective Data: Primary Decision Maker: Patient Pt had a CT scan on 11/26/16 per MD the following was stated: Discussed CT scan findings with Dr. Vasquez. Plan to continue current treatment. Continue n.p.o., okay with ice chips. Continue TPN. Follow-up with Dr. Vasquez in 3 weeks. Patient can be discharged home if her current treatment can be continued and managed by home care. SW was notified of pt's treatment plan, placed referral to [facility] on 11/28/16 for pt's discharge treatment needs. Per [facility] ([facility] [phone]) pt is covered at 100% for home TPN Infusion Services, pt's referral was accepted on 11/27/16. According to [facility], pt was already an existing pt with [facility], RN services will resume upon d/c from . informed pt and pt's daughter Jluis of pt's acceptance with [facility]. Per pt is cleared to discharge to home on 11/28/16 with supportive services. Jluis advised she would provide transportation for pt. 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 Funding Information: Medicare and FAG[employer] Resources Provided: [] Honoring Choices [] Guardianship Info [] MA Info & [place] [] Waiver Programs [] SSI/SSDI [] Brain Injury Association [] TCU/SNF List [] Assisted Living List [] Alf List [] Community Services List [] Legal Assistance [] Driving Evaluation Info [] Campus Security Officer Services [x] Home Care [] County Contact Info [] Other: RO Rebollar [place], Benjamín, PharmD - 11/27/2016 11:22 AM CDT Pharmacy Note: Total Parenteral Nutrition (TPN) Management Pharmacist consulted to dose TPN for Racquel Jones, a 71 y[address] female by Dr. Burnham. Subjective: Indication for TPN therapy: enterocutaneous fistula Inadequate nutrition existing for > 7 days. Enteral nutrition contraindicated due to: small bowel obstruction. Pertinent diseases and other special considerations None Social History Substance Use Topics ??? Smoking status: Never Smoker ??? Smokeless tobacco: Never Used ??? Alcohol use Yes Comment: once a month when out for dinner Objective: Height: 5' 1 (1.549 m) Weight: 72.7 kg (160 lb 3.2 oz) Body mass index is 30.27 kg/(m^2). Patient Vitals for the past 96 hrs: Weight 11/26/16 1512 72.7 kg (160 lb 3.2 oz) 11/26/16 0646 73.3 kg (161 lb 9.6 oz) 11/25/16 1300 73.4 kg (161 lb 14.4 oz) 11/24/16 1115 73.5 kg (162 lb) Labs: Last 3 days: Recent Labs 11/25/16 0601 11/26/16 0532 11/27/16 0521 NA -- -- 132* K 4.1 4.3 4.6 CL -- -- 96* CO2 -- -- 30 BUN -- -- 18 CREATININE -- -- 0.52* GLU -- -- 101 CALCIUM -- -- 8.3* MG -- -- 1.7* PHOS -- -- 4.2 PROT -- -- 6.0 ALBUMIN -- -- 2.6* PREALBUMIN -- -- 16.7* TRIG -- -- 168* BILITOT -- -- 0.2 AST -- -- 15 ALKPHOS -- -- 63 INR -- -- 1.04 Fingerstick Blood Glucose (past 48 hours): Recent Labs 11/26/16 1149 [id number] 136 Intake/Output (last 24 hours): I/O last 3 completed shifts: In: 2203 [P.O.:120; I.V.:20] Out: 2325 [Urine:2200; Drains:125] Estimated CrCl: Estimated Creatinine Clearance: 58.9 mL/min (by C-G formula based on Cr of 0.52). Assessment: Continue patient on TPN therapy as a continuous central therapy. Given the patient's current condition/oral intake, PN is still indicated. Lab results reviewed: 11/17 Labs reviewed 11/27. Continues NPO. RD increased AA from 5.5 to 6%; Minor Lytes Changes Na+ 35-55mEq/l; K 45-40 meq/l; Mg 12-15 mEq/l; Phos 15-12 mM/l; CL ac 2:1-1:1 Plan: 1. Rate of TPN: 80 mL/hr. Maintenance IV fluid rate will be adjusted appropriately to meet the totalmaximum IV fluids rate as ordered by provider. 2. Formula: ?? Amino Acids 6 % ?? Dextrose 15 % ?? Sodium 55 mEq/L ?? Potassium 40 mEq/l ?? Magnesium 15 mEq/L ?? Calcium 4.5 mEq/L ?? Phosphorus 12 mMol/L ?? Chloride: Acetate Ratio 1:1 ?? Standard Multivitamins w/Vitamin K ?? Trace Elements 3. Fat Emulsion: 20%, 250 mL IV 5 times weekly. 4. Check hyperal lytes labs twice weekly and as needed. 5. Pharmacist will continue to follow the patient's lab results, clinical status and blood glucose results and make adjustments as appropriate. Thank you for the consult. Benjamín Rogel [facility] 11/27/2016 11:22 AM Jenni Burnham MD - 11/27/2016 11:21 AM CDT [facility] Hospitalist Daily Progress Note Assessment/Plan (Active Issues) Patient is a pleasant 71-year-old female with past medical history of lower extremity DVT, small bowel obstruction, incarcerated ventral hernia who had repair of incarcerated ventral hernia on 07/26/2016with multiple postoperative complications including wound dehiscence, abdominal wall abscesses and required further surgeries. Patient was discharged to TCU on 09/27/2016. Patient seen in the clinic by Dr. Vasquez with persistent drainage from old ED site. Patient returned to [facility] with left abdominal wall abscess. CT scan showed multiple areas of air containing abscesses within the soft tissue of ventral abdominal wall. She was started on IV antibiotics and a wound VAC was placed which was later on discontinued due to brownish purulent drainage from the EC fistula. Patient was transferred to [facility] for continued complex nonhealing open abdominal wall wound and EC fistula. She is on TPN and n.p.o. Currently receiving antibiotics for 1 more week. Abscess of postoperative wound of abdominal wall S/P repair of incancerated ventral hernia on 07/27/16: Now with low output enterocutaneous fistula butstill significant and a complex open nonhealing abdominal wound. Patient is n.p.o. Continue TPN. Goal is to improve nutrition with decrease in drainage from EC fistula. Pain controlled with as needed IV Dilaudid. Pt had CT abdomen 11/26/16. ANTERIOR ABDOMINAL WALL: There is a mesh graft demonstrated across a ventral hernia. There is fluid and air in the anterior abdominal wall which involves both the mesh graft as well as soft tissues of the anterior abdominal wall consistent with enterocutaneous fistulae. There are appliances present over the lower anterior abdominal wall which are collecting the drainage from the fistulae. There is marked stranding in the anterior abdominal wall soft tissues. The fistulae are draining to the three sites which are covered with appliances adhered to the anterior abdominal wall noted on image 101, 109, and 108. discussed CT scan findings with Dr. Vasquez. Plan to continue current treatment. Continue n.p.o., okay with ice chips. Continue TPN. Follow-up with Dr. Vasquez in 2-3 weeks. Patient can be discharged home if her current treatment can be continued and managed by home care Non healing midline open abdominal wound with EC fistula: wound is healing. Fistula cont draining. ?? Abdominal wall abscesses: Continue IV ceftriaxone and Flagyl for 1 more week from date of admission to [facility]. Repeat CT abdomen and pelvis after completion of IV antibiotics on 11/26/2016. ?? Chronic diastolic heart failure: Patient takes Lasix 40 mg daily and atenolol at home. These medications were on hold. No signs of overt volume overload. However wt increasing. Started on atenolol as patient heart rate was above 100. Restart lasix 11/20 and cont monitor wt and BP Essential Hypertension: Currently on atenolol and lasix ?? Lower extremity DVT: On therapeutic dose of Lovenox. Monitor hemoglobin, no evidence of bleeding ?? Severe Malnutrition: prealbumin 17.2. RD following. Patient is currently on TPN ?? Pure hypercholesterolemia: Statins on hold as patient is n.p.o. ?? Adjustment disorder: Started on Lexapro on 11/22. Continue supportive care and counseling. Psychiatrist and psychologist follow ?? Insomnia: Patient did not tolerate IV Ativan at [facility]. Continue Benadryl prn HypoK -replace per protocol Subjective: No acute issue overnight. Patient denies any pain, nausea or vomiting. Discussed pt condition, plan of care and discharge planning with pt and her daughter in pt room. Objective: Vital signs in last 24 hours: Temp: [97 ??F (36.1 ??C)-99.1 ??F (37.3 ??C)] 98 ??F (36.7 ??C) Heart Rate: [67-81] 73 Resp: [17-20] 18 BP: (101-121)/(52-59) 121/59 Weight: 160 lb 3.2 oz (72.7 kg) Intake/Output last 3 shifts: I/O last 3 completed shifts: In: 2203 [P.O.:120; I.V.:20] Out: 2325 [Urine:2200; Drains:125] Intake/Output this shift: Review of Systems: See Subjective General Appearance: NAD Neck: Supple, symmetrical, trachea midline, no adenopathy; Lungs: Clear to auscultation bilaterally, respirations unlabored Heart: Regular rate and rhythm, S1 and S2 normal, no murmur, rubs or gallop Abdomen: Soft, non-tender, 2 stoma bags on midline and R lateral portion with thick brownish/yellowish drainage. Extremities: Extremities normal, atraumatic, no cyanosis or edemat. Skin: Large open nonhealing abdominal wound with midline EC fistula with yellowish/brown drainage. No bleeding. Neurologic: normal and equal strength bilat in upper and lower extremities Medications: Scheduled Meds: ??? atenolol 50 mg Oral DAILY ??? enoxaparin 110 mg Subcutaneous Q24H ??? escitalopram oxalate 10 mg Oral DAILY ??? fat emulsion 250 mL Intravenous Once per day on Sat ??? furosemide 40 mg Oral DAILY ??? sodium chloride 10-30 mL Intravenous Q8H FIXED TIMES Continuous Infusions: ??? dextrose 10% 80 mL/hr (11/16/161817) ??? TPN - Custom formula ??? TPN - Custom formula PRN Meds:.alteplase, bacitracin, dextrose 10%, dextrose 50 % (D50W) OR glucagon (human recombinant), diphenhydrAMINE, HYDROmorphone, naloxone OR naloxone, ondansetron, polyethylene glycol, sodium chloride, sodium chloride, sodium chloride, nacl 0.9%, white petrolatum Lab Results: (I have personally reviewed the results) Recent Results (from the past 24 hour(s)) POCT Glucose Collection Time: 11/26/16 11:49 AM Result Value Ref Range Glucose, POC 136 mg/dL TPN Panel Collection Time: 11/27/16 5:21 AM Result Value Ref Range Sodium 132 (L) 136 - 145 mmol/L Potassium 4.6 3.5 - 5.0 mmol/L Chloride 96 (L) 98 - 107 mmol/L CO2 30 22 - 31 mmol/L Glucose 101 70 - 125 mg/dL BUN 18 8 - 28 mg/dL Creatinine 0.52 (L) 0.60 - 1.10 mg/dL GFR MDRD Af Amer >60 >60 mL/min/1.73m2 GFR MDRD Non Af Amer >60 >60 mL/min/1.73m2 Calcium 8.3 (L) 8.5 - 10.5 mg/dL Bilirubin, Total 0.2 0.0 - 1.0 mg/dL Phosphorus 4.2 2.5 - 4.5 mg/dL Protein, Total 6.0 6.0 - 8.0 g/dL Alkaline Phosphatase 63 45 - 120 U/L AST 15 0 - 40 U/L Magnesium 1.7 (L) 1.8 - 2.6 mg/dL Triglycerides 168 (H) <=149 mg/dL Prealbumin 16.7 (L) 19.0 - 38.0 mg/dL Albumin 2.6 (L) 3.5 - 5.0 g/dL INR Collection Time: 11/27/16 5:21 AM Result Value Ref Range INR 1.04 0.90 - 1.10 Karma Chung - 11/27/2016 10:31 AM CDT Clinical Nutrition Therapy Reassessment Note Reason for Reassessment: Per protocol/pathway, manage TPN. Pt busy talking with doctor, chart reviewed. Current Nutrition Prescription: Diet: NPO TPN: Dex 15% + AA's 5.5% at 80 ml/hr continuous Lipids:20% 250 ml 5x/week Current Nutrition Intake: Parenteral nutrition access is a central line. The current nutrition order will provide: 1758 kcals, 105 grams protein, 288 grams carbohydrate, 39.6 grams fat daily average, and 1920 mls fluid daily. Meeting estimated needs on parenteral nutrition. Anthropometrics: Height: 5' 1 (154.9 cm) Admission weight: 162 lb Weight: 160 lb 3.2 oz (72.7 kg)(11/26) [place] body weight 105 lb +/- 10% % ideal body wt: 152%(+or-10%) Usual body weight 180 lb prior to 07/2016. Weight History: 07/25/16, 180 lb 10/31/16, 161 lb Significant wt loss of 18 lb (10%) past 3.5 months. Recent wt's:161 lb(11/21) 161 lb(11/26) Physical Findings: The patient has the following physical signs which could indicate malnutrition: Not able to see patient today GI Status/Output: EC fistula. Drain x 2: 125-155 ml/24 hrs noted past few days Skin/Wound: Chavo score Chavo Scale Score: 17 Abdominal surgical wound w/EC fistula(WOC note reviewed on 11/22 & wound significantly improved noted) Medications: Medications reviewed. Note: Lasix MVI & trace elements in TPN Labs: Lab Results Component Value Date/Time PREALBUMIN 16.7 (L) 11/27/2016 05:21 AM ALBUMIN 2.6 (L) 11/27/2016 05:21 AM NA 132 (L) 11/27/2016 05:21 AM K 4.6 11/27/2016 05:21 AM BUN 18 11/27/2016 05:21 AM CREATININE 0.52 (L) 11/27/2016 05:21 AM GLU 101 11/27/2016 05:21 AM M.7(11/27/16)-slightly low Prealbumin down slightly from 17.8 last week Trigs: 168(11/27/16)-high, up from 139 last week AST:15, ALP:63(11/27/16)-WNL Assessed Nutritional Needs: Assessment weight is 54 kg, with a weight source of adjusted Estimated Energy Needs: 8269-0507 kcals daily per 30-35 kcal/kg Estimated Protein Needs: 81-120 g daily, 1.5-2.2 g/kg. Estimated Fluid Needs: 6783-4709 mls daily, 30-35 mls/kg Malnutrition: Severe Protein Calorie Malnutrition noted Nutrition Risk Level: high-stable risk Nutrition dx: Increased nutrient needs r/t wound healing & malnutrition evidenced by EC fistula, wt loss, wound. Altered GI function r/t EC fistula evidenced by need for NPO/TPN. Goals: Meet nutrition needs via TPN-progressing Minimize further wt loss-progressing Wound/fistula healing & transition back to po diet when feasible per doctor Intervention: Increase AA to 6% in next bag to provide 115 grams protein to better meet protein needs for wound healing. Discussed with pharmacist about TPN change. Monitoring: TPN (macronutrients; pharmacy to monitor micronutrients), wts, labs, GI function, wound progress perWOC See Care Plan for Problems, Goals, and Interventions. Roberto Camacho MD - 11/26/2016 9:49 AM CDT Inpatient Followup Psychiatric Evaluation PLAN: Medication Adjustment: I will make no changes at this time. The patient seems to have tolerated the increase in the Lexapro. No significant change in her mood yet and I did talk with her about the delayed onset of action of that medication. Other: Medical cares and therapies as per the attending team. I will continue to monitor the patient's mood, cognition and behavior. The nurses do not report any new issues or concerns. Patient continues to require reassurance at times. SUMMARY OF PSYCHIATRIC CARE THIS HOSPITALIZATION: The patient for an initial psychiatric consultation on November 20. She had multiple situational stressors and an extended hospitalization and appear depressed but she requested no psychotropic medicationaddition at that time. On November 22 I did start the patient on low dose Lexapro. On November 24 we increased the Lexapro to 10 mg a day. Diagnosis managed and treated at today's visit : [place] I: Major depressive disorder, single episode, moderate to severe, without psychotic features Encephalopathy and possible mood disorder secondary to underlying medical issues including infection and recent surgery, improved [place] II: Deferred [place] III : Please see initial psychiatric consultation note Problem List: Principal Problem: Enterocutaneous fistula Active Problems: Abdominal wall abscess Essential hypertension Chronic diastolic heart failure Physical deconditioning Insomnia DVT, lower extremity Open abdominal wall wound, sequela Onychomycosis Onychauxis Adjustment disorder with mixed anxiety and depressed mood Current Symptoms: The patient tells me she is a bit anxious because she has a CAT scan today and she is hoping she will get news that she can go home soon. She tells me she slept good. She denies having any significant change in her mood. No suicidality. No psychosis. She minimizes any concerns or complaints. She denies having any side effects to the medications. Mental Status Exam: Appearance: Sitting up. Comfortable and calm. No agitation. No distress. Not short of breath. Behavior: Operative. Again seeking some reassurance. Not restless or agitated. Speech: Sentence structure is intact. Not pressured or rambling. Mood/Affect: Anxious and depressed. A bit more alert. Not irritable today. Attention and concentration: Able to attend. Doing fairly well. Able to initiate. Concentration continues somewhat impaired. Thought Content: No psychosis Suicidal/Homicidal Ideation: None Thought Process: Assessing information fairly well. A bit perseverative at times. Not loose. No racing thoughts. Insight: Fair. Please see above Judgement: Fair. Please see above Memory: Grossly intact Gait/Motor Status: No tremor. Please see therapy notes Orientation: Grossly oriented. Please see therapy notes Pertinent History: Racquel Jones is a 71 y.o. female was admitted to the medical service under thecare of the hospitalist team on November 16 of this year. The patient has a history of a DVT in the lower extremity as well as a small bowel obstruction and an incarcerated ventral hernia. She had a mesh repair on July 26 which was complicated postoperatively by wound infection and dehiscence as well as abscess formation. This required further surgery and removal of the mesh and debridements. She was stabilized and discharged to a TCU on September 27 of this year. She had multiple admissions following this due to wound issues. She required IV antibiotics. She has had persistent drainage from an old ED site. T he patient was seen in clinic on November 01 and sent home but there was concern for abscess of the leftside of the abdomen. A CT showed an air-containing abscess which had grown in size. This was in the soft tissues of the ventral abdominal wall. She required I&D and further IV antibiotics. Please see the chart for details. Ultimately she is required a wound VAC and has had multiple other procedures. She was sent here for further assessment and treatment. I been asked to render a psychiatric consultation due to concerns that depression may be compromising her progress here. Current Medications: ??? atenolol 50 mg Oral DAILY ??? enoxaparin 110 mg Subcutaneous Q24H ??? escitalopram oxalate 10 mg Oral DAILY ??? fat emulsion 250 mL Intravenous Once per day on Sat ??? furosemide 40 mg Oral DAILY ??? sodium chloride 10-30 mL Intravenous Q8H FIXED TIMES alteplase, bacitracin, dextrose 10%, dextrose 50 % (D50W) OR glucagon (human recombinant), diphenhydrAMINE, HYDROmorphone, naloxone OR naloxone, ondansetron, polyethylene glycol, sodium chloride, sodium chloride, sodium chloride, nacl 0.9%, white petrolatum Medication Compliance: yes Side Effects to Medications: no Vitals: Wt Readings from Last 3 Encounters: 11/26/16 161 lb 9.6 oz (73.3 kg) Temp Readings from Last 3 Encounters: 11/26/16 98.4 ??F (36.9 ??C) (Oral) BP Readings from Last 3 Encounters: 11/26/16 123/59 Pulse Readings from Last 3 Encounters: 11/26/16 82 Recent Labs: Recent Results (from the past 48 hour(s)) Potassium Collection Time: 11/25/16 6:01 AM Result Value Ref Range Potassium 4.1 3.5 - 5.0 mmol/L Potassium Collection Time: 11/26/16 5:32 AM Result Value Ref Range Potassium 4.3 3.5 - 5.0 mmol/L We will continue with the structure and support of the unit, reassurance, and redirection. Staff monitoring and ongoing assessments per team plan. Current psychotropic medication appears to represent the minimum effective dosage and appears medically necessary. We will continue to monitor and reassess. I will be available if concerns or problems arise. Much or all of the text in this note was generated through the use of [employer] [id number] software. Errors in spelling or words which seem out of context are unintentional. Sound alike errors,in particular, may have escaped editing. Roberto Camacho Jenni Burnham MD - 11/26/2016 8:46 AM CDT [facility] Hospitalist Daily Progress Note Assessment/Plan (Active Issues) Patient is a pleasant 71-year-old female with past medical history of lower extremity DVT, small bowel obstruction, incarcerated ventral hernia who had repair of incarcerated ventral hernia on 07/26/2016with multiple postoperative complications including wound dehiscence, abdominal wall abscesses and required further surgeries. Patient was discharged to TCU on 09/27/2016. Patient seen in the clinic by Dr. Vasquez with persistent drainage from old ED site. Patient returned to [facility] with left abdominal wall abscess. CT scan showed multiple areas of air containing abscesses within the soft tissue of ventral abdominal wall. She was started on IV antibiotics and a wound VAC was placed which was later on discontinued due to brownish purulent drainage from the EC fistula. Patient was transferred to [facility] for continued complex nonhealing open abdominal wall wound and EC fistula. She is on TPN and n.p.o. Currently receiving antibiotics for 1 more week. Abscess of postoperative wound of abdominal wall S/P repair of incancerated ventral hernia on 07/27/16: Now with low output enterocutaneous fistula butstill significant and a complex open nonhealing abdominal wound. Patient is n.p.o. Continue TPN. Goal is to improve nutrition with decrease in drainage from EC fistula. Pain controlled with as needed IV Dilaudid. Non healing midline open abdominal wound with EC fistula: wound is healing. Fistula cont draining. ?? Abdominal wall abscesses: Continue IV ceftriaxone and Flagyl for 1 more week from date of admission to [facility]. Repeat CT abdomen and pelvis after completion of IV antibiotics on 11/26/2016. ?? Chronic diastolic heart failure: Patient takes Lasix 40 mg daily and atenolol at home. These medications were on hold. No signs of overt volume overload. However wt increasing. Started on atenolol as patient heart rate was above 100. Restart lasix 11/20 and cont monitor wt and BP Essential Hypertension: Currently on atenolol and lasix ?? Lower extremity DVT: On therapeutic dose of Lovenox. Monitor hemoglobin, no evidence of bleeding ?? Severe Malnutrition: prealbumin 17.2. RD following. Patient is currently on TPN ?? Pure hypercholesterolemia: Statins on hold as patient is n.p.o. ?? Adjustment disorder: Started on Lexapro on 11/22. Continue supportive care and counseling. Psychiatrist and psychologist follow ?? Insomnia: Patient did not tolerate IV Ativan at [facility]. Continue Benadryl prn HypoK -replace per protocol Subjective: Pt had CT abdomen today. ANTERIOR ABDOMINAL WALL: There is a mesh graft demonstrated across a ventral hernia. There is fluid and air in the anterior abdominal wall which involves both the mesh graft as well as soft tissues of the anterior abdominal wall consistent with enterocutaneous fistulae. There are appliances present over the lower anterior abdominal wall which are collecting the drainage from the fistulae. There is marked stranding in the anterior abdominal wall soft tissues. The fistulae are draining to the three sites which are covered with appliances adhered to the anterior abdominal wall noted on image 101, 109, and 108. discussed CT scan findings with Dr. Vasquez. Plan to continue current treatment. Continue n.p.o., okay with ice chips. Continue TPN. Follow-up with Dr. Vasquez in 3 weeks. Patient can be discharged home if her current treatment can be continued and managed by home care No acute issue overnight. Patient denies any pain, nausea or vomiting. Objective: Vital signs in last 24 hours: Temp: [98.4 ??F (36.9 ??C)-98.8 ??F (37.1 ??C)] 98.4 ??F (36.9 ??C) Heart Rate: [74-82] 82 Resp: [18] 18 BP: (110-123)/(55-59) 123/59 Weight: 161 lb 9.6 oz (73.3 kg) Intake/Output last 3 shifts: I/O last 3 completed shifts: In: 1886 Out: 1530 [Urine:1375; Drains:155] Intake/Output this shift: I/O this shift: In: - Out: 400 [Urine:400] Review of Systems: See Subjective General Appearance: NAD Neck: Supple, symmetrical, trachea midline, no adenopathy; Lungs: Clear to auscultation bilaterally, respirations unlabored Heart: Regular rate and rhythm, S1 and S2 normal, no murmur, rubs or gallop Abdomen: Soft, non-tender, 2 stoma bags on midline and R lateral portion with thick brownish/yellowish drainage. Extremities: Extremities normal, atraumatic, no cyanosis or edemat. Skin: Large open nonhealing abdominal wound with midline EC fistula with yellowish/brown drainage. No bleeding. Neurologic: normal and equal strength bilat in upper and lower extremities Medications: Scheduled Meds: ??? atenolol 50 mg Oral DAILY ??? enoxaparin 110 mg Subcutaneous Q24H ??? escitalopram oxalate 10 mg Oral DAILY ??? fat emulsion 250 mL Intravenous Once per day on Sat ??? furosemide 40 mg Oral DAILY ??? sodium chloride 10-30 mL Intravenous Q8H FIXED TIMES Continuous Infusions: ??? dextrose 10% 80 mL/hr (11/16/161817) ??? TPN - Custom formula 80 mL/hr at 11/25/161923 PRN Meds:.alteplase, bacitracin, dextrose 10%, dextrose 50 % (D50W) OR glucagon (human recombinant), diphenhydrAMINE, HYDROmorphone, naloxone OR naloxone, ondansetron, polyethylene glycol, sodium chloride, sodium chloride, sodium chloride, nacl 0.9%, white petrolatum Lab Results: (I have personally reviewed the results) Recent Results (from the past 24 hour(s)) Potassium Collection Time: 11/26/16 5:32 AM Result Value Ref Range Potassium 4.3 3.5 - 5.0 mmol/L Roberto Camacho MD - 11/25/2016 10:36 AM CDT Inpatient Followup Psychiatric Evaluation PLAN: Medication Adjustment: We will continue with the Lexapro trial including the recent increase. The patient seems to be tolerating that medication. Other: Medical cares and therapies as per the attending team. I will continue to monitor the patient's mood, cognition and behavior. No reports of any new issues or concerns. SUMMARY OF PSYCHIATRIC CARE THIS HOSPITALIZATION: The patient for an initial psychiatric consultation on November 20. She had multiple situational stressors and an extended hospitalization and appear depressed but she requested no psychotropic medicationaddition at that time. On November 22 I did start the patient on low dose Lexapro. On November 24 we increased the Lexapro to 10 mg a day. Diagnosis managed and treated at today's visit : [place] I: Major depressive disorder, single episode, moderate to severe, without psychotic features Encephalopathy and possible mood disorder secondary to underlying medical issues including infection and recent surgery, improved [place] II: Deferred [place] III : Please see initial psychiatric consultation note Problem List: Principal Problem: Enterocutaneous fistula Active Problems: Abdominal wall abscess Essential hypertension Chronic diastolic heart failure Physical deconditioning Insomnia DVT, lower extremity Open abdominal wall wound, sequela Onychomycosis Onychauxis Adjustment disorder with mixed anxiety and depressed mood Current Symptoms: Patient denies having any side effects to the medication. She has had some mild periodic nausea but this preceded the Lexapro trial. She believes it may be related to the tube feeding. She reports no change in her mood. She again had a lot of questions about the antidepressant. Many of these had been previously discussed. She seems to have some difficulty with retention. She also continues to seek reassurance. She denies having any suicidality. She minimizes any confusion. She denies psychosis. She offers no other questions or concerns. She tells me she is being treated well. Mental Status Exam: Appearance: Calm and slow. No obvious pain or distress. Fairly good eye contact. Behavior: Again slow. Not restless or agitated. Again seeking reassurance. Speech: Able to initiate. Sentence structure is intact but fairly simple and somewhat perseverative. Mood/Affect: Depressed. Not tearful. Slightly irritable. Somewhat anxious. Attention and concentration: Able to attend. Concentration continues somewhat impaired. Thought Content: No psychosis Suicidal/Homicidal Ideation: None Thought Process: A bit perseverative again. No racing thoughts. Insight: Fair. Please see above Judgement: Fair. Please see above Memory: Grossly intact Gait/Motor Status: No tremor. Please see therapy notes Orientation: Grossly oriented. Please see therapy notes Pertinent History: Racquel Jones is a 71 y.o. female was admitted to the medical service under thecare of the hospitalist team on November 16 of this year. The patient has a history of a DVT in the lower extremity as well as a small bowel obstruction and an incarcerated ventral hernia. She had a mesh repair on July 26 which was complicated postoperatively by wound infection and dehiscence as well as abscess formation. This required further surgery and removal of the mesh and debridements. She was stabilized and discharged to a TCU on September 27 of this year. She had multiple admissions following this due to wound issues. She required IV antibiotics. She has had persistent drainage from an old ED site. T he patient was seen in clinic on November 01 and sent home but there was concern for abscess of the leftside of the abdomen. A CT showed an air-containing abscess which had grown in size. This was in the soft tissues of the ventral abdominal wall. She required I&D and further IV antibiotics. Please see the chart for details. Ultimately she is required a wound VAC and has had multiple other procedures. She was sent here for further assessment and treatment. I been asked to render a psychiatric consultation due to concerns that depression may be compromising her progress here. Current Medications: ??? atenolol 50 mg Oral DAILY ??? enoxaparin 110 mg Subcutaneous Q24H ??? escitalopram oxalate 10 mg Oral DAILY ??? fat emulsion 250 mL Intravenous Once per day on Sat ??? furosemide 40 mg Oral DAILY ??? sodium chloride 10-30 mL Intravenous Q8H FIXED TIMES alteplase, bacitracin, dextrose 10%, dextrose 50 % (D50W) OR glucagon (human recombinant), diphenhydrAMINE, HYDROmorphone, naloxone OR naloxone, ondansetron, polyethylene glycol, sodium chloride, sodium chloride, sodium chloride, nacl 0.9%, white petrolatum Medication Compliance: yes Side Effects to Medications: no Vitals: Wt Readings from Last 3 Encounters: 11/24/16 162 lb (73.5 kg) Temp Readings from Last 3 Encounters: 11/25/16 98.6 ??F (37 ??C) (Oral) BP Readings from Last 3 Encounters: 11/25/16 136/64 Pulse Readings from Last 3 Encounters: 11/25/16 86 Recent Labs: Recent Results (from the past 48 hour(s)) Potassium Collection Time: 11/23/16 9:58 PM Result Value Ref Range Potassium 3.7 3.5 - 5.0 mmol/L Potassium Collection Time: 11/24/16 6:16 AM Result Value Ref Range Potassium 4.3 3.5 - 5.0 mmol/L Potassium Collection Time: 11/25/16 6:01 AM Result Value Ref Range Potassium 4.1 3.5 - 5.0 mmol/L We will continue with the structure and support of the unit, reassurance, and redirection. Staff monitoring and ongoing assessments per team plan. Current psychotropic medication appears to represent the minimum effective dosage and appears medically necessary. We will continue to monitor and reassess. I will be available if concerns or problems arise. Much or all of the text in this note was generated through the use of [employer] [id number] software. Errors in spelling or words which seem out of context are unintentional. Sound alike errors,in particular, may have escaped editing. Roberto Camacho Jenni Burnham MD - 11/25/2016 10:25 AM CDT [facility] Hospitalist Daily Progress Note Assessment/Plan (Active Issues) Patient is a pleasant 71-year-old female with past medical history of lower extremity DVT, small bowel obstruction, incarcerated ventral hernia who had repair of incarcerated ventral hernia on 07/26/2016with multiple postoperative complications including wound dehiscence, abdominal wall abscesses and required further surgeries. Patient was discharged to TCU on 09/27/2016. Patient seen in the clinic by Dr. Vasquez with persistent drainage from old ED site. Patient returned to [facility] with left abdominal wall abscess. CT scan showed multiple areas of air containing abscesses within the soft tissue of ventral abdominal wall. She was started on IV antibiotics and a wound VAC was placed which was later on discontinued due to brownish purulent drainage from the EC fistula. Patient was transferred to [facility] for continued complex nonhealing open abdominal wall wound and EC fistula. She is on TPN and n.p.o. Currently receiving antibiotics for 1 more week. Abscess of postoperative wound of abdominal wall S/P repair of incancerated ventral hernia on 07/27/16: Now with low output enterocutaneous fistula butstill significant and a complex open nonhealing abdominal wound. Patient is n.p.o. Continue TPN. Goal is to improve nutrition with decrease in drainage from EC fistula. Pain controlled with as needed IV Dilaudid. Non healing midline open abdominal wound with EC fistula: wound is healing. Fistula cont draining. ?? Abdominal wall abscesses: Continue IV ceftriaxone and Flagyl for 1 more week from date of admission to [facility]. Plan to repeat CT abdomen and pelvis after completion of IV antibiotics on 11/26/2016. Will send CT result to [facility] ?? Chronic diastolic heart failure: Patient takes Lasix 40 mg daily and atenolol at home. These medications were on hold. No signs of overt volume overload. However wt increasing. Started on atenolol as patient heart rate was above 100. Restart lasix 11/20 and cont monitor wt and BP Essential Hypertension: Currently on atenolol and lasix ?? Lower extremity DVT: On therapeutic dose of Lovenox. Monitor hemoglobin, no evidence of bleeding ?? Severe Malnutrition: prealbumin 17.2. RD following. Patient is currently on TPN ?? Pure hypercholesterolemia: Statins on hold as patient is n.p.o. ?? Adjustment disorder: Started on Lexapro on 11/22. Continue supportive care and counseling. Psychiatrist and psychologist follow ?? Insomnia: Patient did not tolerate IV Ativan at [facility]. Continue Benadryl prn HypoK -replace per protocol Subjective: No acute issue overnight. Patient denies any pain, nausea or vomiting. Plan for CT abdomen and pelvis on 11/26/2006 Patient is very anxious about CT scan tomorrow and hoping to go home soon. Objective: Vital signs in last 24 hours: Temp: [98.3 ??F (36.8 ??C)-98.8 ??F (37.1 ??C)] 98.6 ??F (37 ??C) Heart Rate: [78-86] 86 Resp: [18] 18 BP: (118-136)/(58-64) 136/64 Weight: 162 lb (73.5 kg) Intake/Output last 3 shifts: I/O last 3 completed shifts: In: 2130.6 [P.O.:100] Out: 2650 [Urine:2500; Drains:150] Intake/Output this shift: Review of Systems: See Subjective General Appearance: NAD Neck: Supple, symmetrical, trachea midline, no adenopathy; Lungs: Clear to auscultation bilaterally, respirations unlabored Heart: Regular rate and rhythm, S1 and S2 normal, no murmur, rubs or gallop Abdomen: Soft, non-tender, 2 stoma bags on midline and R lateral portion with thick brownish/yellowish drainage. Extremities: Extremities normal, atraumatic, no cyanosis or edemat. Skin: Large open nonhealing abdominal wound with midline EC fistula with yellowish/brown drainage. No bleeding. Neurologic: normal and equal strength bilat in upper and lower extremities Medications: Scheduled Meds: ??? atenolol 50 mg Oral DAILY ??? enoxaparin 110 mg Subcutaneous Q24H ??? escitalopram oxalate 10 mg Oral DAILY ??? fat emulsion 250 mL Intravenous Once per day on Sat ??? furosemide 40 mg Oral DAILY ??? sodium chloride 10-30 mL Intravenous Q8H FIXED TIMES Continuous Infusions: ??? dextrose 10% 80 mL/hr (11/16/16 1818) ??? TPN - Custom formula 80 mL/hr at 11/24/162156 ??? TPN - Custom formula PRN Meds:.alteplase, bacitracin, dextrose 10%, dextrose 50 % (D50W) OR glucagon (human recombinant), diphenhydrAMINE, HYDROmorphone, naloxone OR naloxone, ondansetron, polyethylene glycol, sodium chloride, sodium chloride, sodium chloride, nacl 0.9%, white petrolatum Lab Results: (I have personally reviewed the results) Recent Results (from the past 24 hour(s)) Potassium Collection Time: 11/25/16 6:01 AM Result Value Ref Range Potassium 4.1 3.5 - 5.0 mmol/L oberto Lynne MD - 11/24/2016 9:51 AM CDT Inpatient Followup Psychiatric Evaluation PLAN: Medication Adjustment: I am going to increase the patient's Lexapro to 10 mg a day. Other: Medical cares and therapies as per the attending team. I will continue to monitor the patient's mood, cognition and behavior. Nurses report the patient continues to be quite anxious and frequently seeks reassurance. I had an opportunity to meet with the attending physician today to discuss the patient. He also reports the patient needs frequent reassurance and seems to have limited recall. She continues to appear depressed. SUMMARY OF PSYCHIATRIC CARE THIS HOSPITALIZATION: The patient for an initial psychiatric consultation on November 20. She had multiple situational stressors and an extended hospitalization and appear depressed but she requested no psychotropic medicationaddition at that time. On November 22 I did start the patient on low dose Lexapro. Diagnosis managed and treated at today's visit : [place] I: Major depressive disorder, single episode, moderate to severe, without psychotic features Encephalopathy and possible mood disorder secondary to underlying medical issues including infection and recent surgery, improved [place] II: Deferred [place] III : Please see initial psychiatric consultation note Problem List: Principal Problem: Enterocutaneous fistula Active Problems: Abdominal wall abscess Essential hypertension Chronic diastolic heart failure Physical deconditioning Insomnia DVT, lower extremity Open abdominal wall wound, sequela Onychomycosis Onychauxis Adjustment disorder with mixed anxiety and depressed mood Current Symptoms: The patient again has many questions about her Lexapro and I do address these with her. She seems toperseverate a bit and asked the same questions over and over. She reports her mood is no better but states she had friends visit and they thought she was doing a bit better. The patient also reports nochange in her thinking and no confusion and then becomes somewhat defensive by this and wants to know why I am asking her such questions. She does report she is sleeping better. She denies having any side effects to the medication. I do talk with her about the delayed onset of action of the medication. She is willing to continue with the current treatment plan. Mental Status Exam: Appearance: Sitting up. Alert. No obvious pain or shortness of breath. Behavior: Seeking reassurance. Not restless. Still somewhat slow. Slightly irritable. A bit confrontational and defensive. Speech: Thick or slurred. Answers are consistent and appropriate. Mood/Affect: She continues to appear depressed and somewhat anxious. Not labile. Slightly irritable. Attention and concentration: Fair. She is a bit perseverative. Concentration appears a bit impaired. Thought Content: No psychosis Suicidal/Homicidal Ideation: None Thought Process: She seems to have difficulty with recall and is perseverative on the same topics. She seems a bit disorganized at times. Insight: Fair. Please see above Judgement: Fair. Please see above Memory: Grossly intact Gait/Motor Status: No tremor. Please see therapy notes Orientation: Grossly oriented. Please see therapy notes Pertinent History: Racquel Jones is a 71 y.o. female was admitted to the medical service under thecare of the hospitalist team on November 16 of this year. The patient has a history of a DVT in the lower extremity as well as a small bowel obstruction and an incarcerated ventral hernia. She had a mesh repair on July 26 which was complicated postoperatively by wound infection and dehiscence as well as abscess formation. This required further surgery and removal of the mesh and debridements. She was stabilized and discharged to a TCU on September 27 of this year. She had multiple admissions following this due to wound issues. She required IV antibiotics. She has had persistent drainage from an old ED site. T he patient was seen in clinic on November 01 and sent home but there was concern for abscess of the leftside of the abdomen. A CT showed an air-containing abscess which had grown in size. This was in the soft tissues of the ventral abdominal wall. She required I&D and further IV antibiotics. Please see the chart for details. Ultimately she is required a wound VAC and has had multiple other procedures. She was sent here for further assessment and treatment. I been asked to render a psychiatric consultation due to concerns that depression may be compromising her progress here. Current Medications: ??? atenolol 50 mg Oral DAILY ??? enoxaparin 110 mg Subcutaneous Q24H ??? escitalopram oxalate 5 mg Oral DAILY ??? fat emulsion 250 mL Intravenous Once per day on Sat ??? furosemide 40 mg Oral DAILY ??? sodium chloride 10-30 mL Intravenous Q8H FIXED TIMES alteplase, bacitracin, dextrose 10%, dextrose 50 % (D50W) OR glucagon (human recombinant), diphenhydrAMINE, HYDROmorphone, naloxone OR naloxone, ondansetron, polyethylene glycol, sodium chloride, sodium chloride, sodium chloride, nacl 0.9%, white petrolatum Medication Compliance: yes Side Effects to Medications: no Vitals: Wt Readings from Last 3 Encounters: 11/22/16 162 lb 11.2 oz (73.8 kg) Temp Readings from Last 3 Encounters: 11/24/16 98.6 ??F (37 ??C) (Oral) BP Readings from Last 3 Encounters: 11/24/16 129/60 Pulse Readings from Last 3 Encounters: 11/24/16 75 Recent Labs: Recent Results (from the past 48 hour(s)) Hyperal Lytes Collection Time: 11/23/16 5:43 AM Result Value Ref Range BUN 15 8 - 28 mg/dL Calcium 8.3 (L) 8.5 - 10.5 mg/dL Chloride 102 98 - 107 mmol/L CO2 28 22 - 31 mmol/L Creatinine 0.50 (L) 0.60 - 1.10 mg/dL GFR MDRD Af Amer >60 >60 mL/min/1.73m2 GFR MDRD Non Af Amer >60 >60 mL/min/1.73m2 Glucose 110 70 - 125 mg/dL Potassium 3.3 (L) 3.5 - 5.0 mmol/L Magnesium 1.8 1.8 - 2.6 mg/dL Sodium 137 136 - 145 mmol/L Phosphorus 3.4 2.5 - 4.5 mg/dL Potassium Collection Time: 11/23/16 9:58 PM Result Value Ref Range Potassium 3.7 3.5 - 5.0 mmol/L Potassium Collection Time: 11/24/16 6:16 AM Result Value Ref Range Potassium 4.3 3.5 - 5.0 mmol/L We will continue with the structure and support of the unit, reassurance, and redirection. Staff monitoring and ongoing assessments per team plan. Current psychotropic medication appears to represent the minimum effective dosage and appears medically necessary. We will continue to monitor and reassess. I will be available if concerns or problems arise. Much or all of the text in this note was generated through the use of [employer] [id number] software. Errors in spelling or words which seem out of context are unintentional. Sound alike errors,in particular, may have escaped editing. Roberto Camacho Jenni Burnham MD - 11/24/2016 8:58 AM CDT [facility] Hospitalist Daily Progress Note Assessment/Plan (Active Issues) Patient is a pleasant 71-year-old female with past medical history of lower extremity DVT, small bowel obstruction, incarcerated ventral hernia who had repair of incarcerated ventral hernia on 07/26/2016with multiple postoperative complications including wound dehiscence, abdominal wall abscesses and required further surgeries. Patient was discharged to TCU on 09/27/2016. Patient seen in the clinic by Dr. Vasquez with persistent drainage from old ED site. Patient returned to [facility] with left abdominal wall abscess. CT scan showed multiple areas of air containing abscesses within the soft tissue of ventral abdominal wall. She was started on IV antibiotics and a wound VAC was placed which was later on discontinued due to brownish purulent drainage from the EC fistula. Patient was transferred to [facility] for continued complex nonhealing open abdominal wall wound and EC fistula. She is on TPN and n.p.o. Currently receiving antibiotics for 1 more week. Abscess of postoperative wound of abdominal wall S/P repair of incancerated ventral hernia on 07/27/16: Now with low output enterocutaneous fistula butstill significant and a complex open nonhealing abdominal wound. Patient is n.p.o. Continue TPN. Goal is to improve nutrition with decrease in drainage from EC fistula. Pain controlled with as needed IV Dilaudid. Non healing midline open abdominal wound with EC fistula: wound is healing. Fistula cont draining. ?? Abdominal wall abscesses: Continue IV ceftriaxone and Flagyl for 1 more week from date of admission to [facility]. Plan to repeat CT abdomen and pelvis after completion of IV antibiotics on 11/26/2016. Will send CT result to [facility] ?? Chronic diastolic heart failure: Patient takes Lasix 40 mg daily and atenolol at home. These medications were on hold. No signs of overt volume overload. However wt increasing. Started on atenolol as patient heart rate was above 100. Restart lasix 11/20 and cont monitor wt and BP Essential Hypertension: Currently on atenolol and lasix ?? Lower extremity DVT: On therapeutic dose of Lovenox. Monitor hemoglobin, no evidence of bleeding ?? Severe Malnutrition: prealbumin 17.2. RD following. Patient is currently on TPN ?? Pure hypercholesterolemia: Statins on hold as patient is n.p.o. ?? Adjustment disorder: Started on Lexapro on 11/22. Continue supportive care and counseling. Psychiatrist and psychologist follow ?? Insomnia: Patient did not tolerate IV Ativan at [facility]. Continue Benadryl prn HypoK -replace per protocol Subjective: No acute issue overnight. Patient denies any pain, nausea or vomiting. Plan for CT abdomen and pelvis on 11/26/2006 Objective: Vital signs in last 24 hours: Temp: [98.1 ??F (36.7 ??C)-98.8 ??F (37.1 ??C)] 98.6 ??F (37 ??C) Heart Rate: [63-77] 63 Resp: [18] 18 BP: (117-133)/(56-63) 130/63 Weight: 162 lb 11.2 oz (73.8 kg) Intake/Output last 3 shifts: I/O last 3 completed shifts: In: 2478.6 [I.V.:20; IV Piggyback:284.4] Out: 1555 [Urine:1200; Drains:355] Intake/Output this shift: Review of Systems: See Subjective General Appearance: NAD Neck: Supple, symmetrical, trachea midline, no adenopathy; Lungs: Clear to auscultation bilaterally, respirations unlabored Heart: Regular rate and rhythm, S1 and S2 normal, no murmur, rubs or gallop Abdomen: Soft, non-tender, 2 stoma bags on midline and R lateral portion with thick brownish/yellowish drainage. Extremities: Extremities normal, atraumatic, no cyanosis or edemat. Skin: Large open nonhealing abdominal wound with midline EC fistula with yellowish/brown drainage. No bleeding. Neurologic: normal and equal strength bilat in upper and lower extremities Medications: Scheduled Meds: ??? atenolol 50 mg Oral DAILY ??? enoxaparin 110 mg Subcutaneous Q24H ??? escitalopram oxalate 5 mg Oral DAILY ??? fat emulsion 250 mL Intravenous Once per day on Sat ??? furosemide 40 mg Oral DAILY ??? sodium chloride 10-30 mL Intravenous Q8H FIXED TIMES Continuous Infusions: ??? dextrose 10% 80 mL/hr (11/16/161817) ??? TPN - Custom formula 80 mL/hr at 11/23/161922 ??? TPN - Custom formula PRN Meds:.alteplase, bacitracin, dextrose 10%, dextrose 50 % (D50W) OR glucagon (human recombinant), diphenhydrAMINE, HYDROmorphone, naloxone OR naloxone, ondansetron, polyethylene glycol, sodium chloride, sodium chloride, sodium chloride, nacl 0.9%, white petrolatum Lab Results: (I have personally reviewed the results) Recent Results (from the past 24 hour(s)) Potassium Collection Time: 11/23/16 9:58 PM Result Value Ref Range Potassium 3.7 3.5 - 5.0 mmol/L Potassium Collection Time: 11/24/16 6:16 AM Result Value Ref Range Potassium 4.3 3.5 - 5.0 mmol/L Historical Provider - 11/23/2016 1:17 PM CDT Care Management Progression of Care Update DR GLOS 12/13-12/17 Target D/C Date 12/13/16 PLAN/GOALS 1. Wound care team following. Continue with new ostomy care orders. 2. Antibiotic doses completed. Planning on 11/[address] of abdomen and pelvis. Will send CT results to general surgeon. 3. RD following. Remains NPO. Continue with TPN/lipids. BARRIERS 1. Non healing open abdominal wound with EC fistula. Continues to have frequent leaking from pouching system. 2. Abdominal wall abscess. 3. Severe malnutrition Disposition: Home with home care Leader Writer Name: Date/Time: Roberto Camacho MD - 11/23/2016 11:20 AM CDT Inpatient Followup Psychiatric Evaluation PLAN: Medication Adjustment: I will make no changes at this time. We did recently start the patient on Lexapro. She tells me she was previously on Zoloft but is willing to engage in the Lexapro trial. I talked with her about a possible alternative for sleep medication but at this time should like to continue with the Benadryl. She states she did not use that last night. Other: Medical cares and therapies as per the attending team. I will continue to monitor the patient's mood, cognition and behavior. Nurses report patient continues to seek reassurance at times but no other new issues or concerns. SUMMARY OF PSYCHIATRIC CARE THIS HOSPITALIZATION: The patient for an initial psychiatric consultation on November 20. She had multiple situational stressors and an extended hospitalization and appear depressed but she requested no psychotropic medicationaddition at that time. On November 22 I did start the patient on low dose Lexapro. Diagnosis managed and treated at today's visit : [place] I: Major depressive disorder, single episode, moderate to severe, without psychotic features Encephalopathy and possible mood disorder secondary to underlying medical issues including infection and recent surgery, improved [place] II: Deferred [place] III : Please see initial psychiatric consultation note Problem List: Principal Problem: Enterocutaneous fistula Active Problems: Abdominal wall abscess Essential hypertension Chronic diastolic heart failure Physical deconditioning Insomnia DVT, lower extremity Open abdominal wall wound, sequela Onychomycosis Onychauxis Adjustment disorder with mixed anxiety and depressed mood Current Symptoms: Patient tells me she slept better last night. She reports no significant change in her mood and I did talk with her about the delayed onset of action. She denies confusion or psychosis. She denies having any hallucinations or delusions. She reports she is being treated well and offers no other concerns or complaints at this time. Mental Status Exam: Appearance: Patient is sitting up. Still slow and somewhat flat. No pain or shortness of breath. Behavior: We will to initiate. She again seeks reassurance and tends to be a bit perseverative regarding this. No restlessness. No agitation. Speech: Sentence structure is intact. Content is appropriate. Not pressured or rambling. Mood/Affect: She continues to appear flat and depressed. Not currently anxious or agitated. No lability. Attention and concentration: Both are grossly intact Thought Content: No psychosis Suicidal/Homicidal Ideation: None Thought Process: Able to process information. Again slightly slow but a bit quicker to respond. Not loose. No racing thoughts. Insight: Fair. Please see above Judgement: Fair. Please see above Memory: Grossly intact Gait/Motor Status: No tremor. Please see therapy notes Orientation: Grossly oriented. Please see therapy notes Pertinent History: Racquel Jones is a 71 y.o. female was admitted to the medical service under thecare of the hospitalist team on November 16 of this year. The patient has a history of a DVT in the lower extremity as well as a small bowel obstruction and an incarcerated ventral hernia. She had a mesh repair on July 26 which was complicated postoperatively by wound infection and dehiscence as well as abscess formation. This required further surgery and removal of the mesh and debridements. She was stabilized and discharged to a TCU on September 27 of this year. She had multiple admissions following this due to wound issues. She required IV antibiotics. She has had persistent drainage from an old ED site. T he patient was seen in clinic on November 01 and sent home but there was concern for abscess of the leftside of the abdomen. A CT showed an air-containing abscess which had grown in size. This was in the soft tissues of the ventral abdominal wall. She required I&D and further IV antibiotics. Please see the chart for details. Ultimately she is required a wound VAC and has had multiple other procedures. She was sent here for further assessment and treatment. I been asked to render a psychiatric consultation due to concerns that depression may be compromising her progress here. Current Medications: ??? atenolol 50 mg Oral DAILY ??? enoxaparin 110 mg Subcutaneous Q24H ??? escitalopram oxalate 5 mg Oral DAILY ??? fat emulsion 250 mL Intravenous Once per day on Sat ??? furosemide 40 mg Oral DAILY ??? metroNIDAZOLE 500 mg Intravenous Q8H ??? potassium chloride 10 mEq Intravenous Q1H ??? sodium chloride 10-30 mL Intravenous Q8H FIXED TIMES alteplase, bacitracin, dextrose 10%, dextrose 50 % (D50W) OR glucagon (human recombinant), diphenhydrAMINE, HYDROmorphone, naloxone OR naloxone, ondansetron, polyethylene glycol, sodium chloride, sodium chloride, sodium chloride, nacl 0.9%, white petrolatum Medication Compliance: yes Side Effects to Medications: no Vitals: Wt Readings from Last 3 Encounters: 11/22/16 162 lb 11.2 oz (73.8 kg) Temp Readings from Last 3 Encounters: 11/23/16 98.2 ??F (36.8 ??C) (Oral) BP Readings from Last 3 Encounters: 11/23/16 132/61 Pulse Readings from Last 3 Encounters: 11/23/16 79 Recent Labs: Recent Results (from the past 48 hour(s)) [facility] Collection Time: 11/23/16 5:43 AM Result Value Ref Range BUN 15 8 - 28 mg/dL Calcium 8.3 (L) 8.5 - 10.5 mg/dL Chloride 102 98 - 107 mmol/L CO2 28 22 - 31 mmol/L Creatinine 0.50 (L) 0.60 - 1.10 mg/dL GFR MDRD Af Amer >60 >60 mL/min/1.73m2 GFR MDRD Non Af Amer >60 >60 mL/min/1.73m2 Glucose 110 70 - 125 mg/dL Potassium 3.3 (L) 3.5 - 5.0 mmol/L Magnesium 1.8 1.8 - 2.6 mg/dL Sodium 137 136 - 145 mmol/L Phosphorus 3.4 2.5 - 4.5 mg/dL We will continue with the structure and support of the unit, reassurance, and redirection. Staff monitoring and ongoing assessments per team plan. Current psychotropic medication appears to represent the minimum effective dosage and appears medically necessary. We will continue to monitor and reassess. I will be available if concerns or problems arise. Much or all of the text in this note was generated through the use of [employer] [id number] software. Errors in spelling or words which seem out of context are unintentional. Sound alike errors,in particular, may have escaped editing. Roberto Camacho Chavez David [facility] - 11/23/2016 10:25 AM CDT Pharmacy Note: Total Parenteral Nutrition (TPN) Management Pharmacist consulted to dose TPN for Racquel Jones, a 71 y.o[address] female by Dr. Burnham. Subjective: Indication for TPN therapy: enterocutaneous fistula Inadequate nutrition existing for > 7 days. Enteral nutrition contraindicated due to: small bowel obstruction. Pertinent diseases and other special considerations None Social History Substance Use Topics ??? Smoking status: Never Smoker ??? Smokeless tobacco: Never Used ??? Alcohol use Yes Comment: once a month when out for dinner Objective: Height: 5' 1 (1.549 m) Weight: 73.8 kg (162 lb 11.2 oz) Body mass index is 30.74 kg/(m^2). Patient Vitals for the past 96 hrs: Weight 11/22/16 0900 73.8 kg (162 lb 11.2 oz) 11/21/16 1419 73.3 kg (161 lb 9.6 oz) 11/20/16 0959 74.1 kg (163 lb 6.4 oz) Labs: Last 3 days: Recent Labs 11/23/16 0543 NA 137 K 3.3* CL 102 CO2 28 BUN 15 CREATININE 0.50* GLU 110 CALCIUM 8.3* MG 1.8 PHOS 3.4 Fingerstick Blood Glucose (past 48 hours): No results for input(s): POCGLUFGR in the last 48 hours. Intake/Output (last 24 hours): I/O last 3 completed shifts: In: 2405.3 [I.V.:20; IV Piggyback:358.7] Out: 1675 [Urine:1600; Drains:75] Estimated CrCl: Estimated Creatinine Clearance: 59.3 mL/min (by C-G formula based on Cr of 0.5). Assessment: Continue patient on TPN therapy as a continuous central therapy. Given the patient's current condition/oral intake, PN is still indicated. Lab results reviewed: 11/17 Plan: 1. Rate of TPN: 80 mL/hr. Maintenance IV fluid rate will be adjusted appropriately to meet the totalmaximum IV fluids rate as ordered by provider. 2. Formula: ?? Amino Acids 5.5 % ?? Dextrose 15 % ?? Sodium 35 mEq/L ?? Potassium 30 mEq/L... Increase to 45 ?? Magnesium 12 mEq/L ?? Calcium 4.5 mEq/L ?? Phosphorus 15 mMol/L ?? Chloride: Acetate Ratio 1:2 ?? Standard Multivitamins w/Vitamin K ?? Trace Elements 3. Fat Emulsion: 20%, 250 mL IV 5 times weekly. 4. Check hyperal lytes labs twice weekly and as needed. 5. Pharmacist will continue to follow the patient's lab results, clinical status and blood glucose results and make adjustments as appropriate. Thank you for the consult. Chavez David RPh 11/23/2016 10:25 AM David Gayle MD - 11/23/2016 8:24 AM CDT [facility] Hospitalist Daily Progress Note Assessment/Plan (Active Issues) Patient is a pleasant 71-year-old female with past medical history of lower extremity DVT, small bowel obstruction, incarcerated ventral hernia who had repair of incarcerated ventral hernia on 07/26/2016with multiple postoperative complications including wound dehiscence, abdominal wall abscesses and required further surgeries. Patient was discharged to TCU on 09/27/2016. Patient seen in the clinic by Dr. Vasquez with persistent drainage from old ED site. Patient returned to [facility] with left abdominal wall abscess. CT scan showed multiple areas of air containing abscesses within the soft tissue of ventral abdominal wall. She was started on IV antibiotics and a wound VAC was placed which was later on discontinued due to brownish purulent drainage from the EC fistula. Patient was transferred to [facility] for continued complex nonhealing open abdominal wall wound and EC fistula. She is on TPN and n.p.o. Currently receiving antibiotics for 1 more week. Abscess of postoperative wound of abdominal wall S/P repair of incancerated ventral hernia on 07/27/16: Now with low output enterocutaneous fistula butstill significant and a complex open nonhealing abdominal wound. Patient is n.p.o. Continue TPN. Goal is to improve nutrition with decrease in drainage from EC fistula. Pain controlled with as needed IV Dilaudid. Non healing midline open abdominal wound with EC fistula: wound is healing. Fistula cont draining. ?? Abdominal wall abscesses: Continue IV ceftriaxone and Flagyl for 1 more week from date of admission to [facility]. Plan to repeat CT abdomen and pelvis after completion of IV antibiotics on 11/26/2016. Will send CT result to [facility] ?? Chronic diastolic heart failure: Patient takes Lasix 40 mg daily and atenolol at home. These medications were on hold. No signs of overt volume overload. However wt increasing. Started on atenolol as patient heart rate was above 100. Restart lasix 11/20 and cont monitor wt and BP Essential Hypertension: Currently on atenolol and lasix ?? Lower extremity DVT: On therapeutic dose of Lovenox. Monitor hemoglobin, no evidence of bleeding ?? Severe Malnutrition: prealbumin 17.2. RD following. Patient is currently on TPN ?? Pure hypercholesterolemia: Statins on hold as patient is n.p.o. ?? Adjustment disorder: Started on Lexapro on 11/22. Continue supportive care and counseling. Psychiatrist and psychologist follow ?? Insomnia: Patient did not tolerate IV Ativan at [facility]. Continue Benadryl prn HypoK -replace per protocol Subjective: No acute issue overnight. Drain output seems to be decreasing last 24 hours. Patient denies any pain, nausea or vomiting. Objective: Vital signs in last 24 hours: Temp: [98.2 ??F (36.8 ??C)-99 ??F (37.2 ??C)] 98.2 ??F (36.8 ??C) Heart Rate: [72-89] 79 Resp: [16-18] 16 BP: (118-132)/(58-73) 132/61 Weight: 162 lb 11.2 oz (73.8 kg) Intake/Output last 3 shifts: I/O last 3 completed shifts: In: 2405.3 [I.V.:20; IV Piggyback:358.7] Out: 1675 [Urine:1600; Drains:75] Intake/Output this shift: I/O this shift: In: - Out: 45 [Drains:45] Review of Systems: See Subjective General Appearance: NAD Neck: Supple, symmetrical, trachea midline, no adenopathy; Lungs: Clear to auscultation bilaterally, respirations unlabored Heart: Regular rate and rhythm, S1 and S2 normal, no murmur, rubs or gallop Abdomen: Soft, non-tender, 2 stoma bags on midline and R lateral portion with thick brownish/yellowish drainage. Extremities: Extremities normal, atraumatic, no cyanosis or edemat. Skin: Large open nonhealing abdominal wound with midline EC fistula with yellowish/brown drainage. No bleeding. Neurologic: normal and equal strength bilat in upper and lower extremities Medications: Scheduled Meds: ??? atenolol 50 mg Oral DAILY ??? enoxaparin 110 mg Subcutaneous Q24H ??? escitalopram oxalate 5 mg Oral DAILY ??? fat emulsion 250 mL Intravenous Once per day on Sat ??? furosemide 40 mg Oral DAILY ??? metroNIDAZOLE 500 mg Intravenous Q8H ??? sodium chloride 10-30 mL Intravenous Q8H FIXED TIMES Continuous Infusions: ??? dextrose 10% 80 mL/hr (11/16/161817) ??? TPN - Custom formula 80 mL/hr at 11/22/161942 PRN Meds:.alteplase, bacitracin, dextrose 10%, dextrose 50 % (D50W) OR glucagon (human recombinant), diphenhydrAMINE, HYDROmorphone, naloxone OR naloxone, ondansetron, polyethylene glycol, sodium chloride, sodium chloride, sodium chloride, nacl 0.9%, white petrolatum Lab Results: (I have personally reviewed the results) Recent Results (from the past 24 hour(s)) [facility] Collection Time: 11/23/16 5:43 AM Result Value Ref Range BUN 15 8 - 28 mg/dL Calcium 8.3 (L) 8.5 - 10.5 mg/dL Chloride 102 98 - 107 mmol/L CO2 28 22 - 31 mmol/L Creatinine 0.50 (L) 0.60 - 1.10 mg/dL GFR MDRD Af Amer >60 >60 mL/min/1.73m2 GFR MDRD Non Af Amer >60 >60 mL/min/1.73m2 Glucose 110 70 - 125 mg/dL Potassium 3.3 (L) 3.5 - 5.0 mmol/L Magnesium 1.8 1.8 - 2.6 mg/dL Sodium 137 136 - 145 mmol/L Phosphorus 3.4 2.5 - 4.5 mg/dL David Gayle MD - 11/22/2016 4:53 PM CDT [facility] Hospitalist Daily Progress Note Assessment/Plan (Active Issues) Patient is a pleasant 71-year-old female with past medical history of lower extremity DVT, small bowel obstruction, incarcerated ventral hernia who had repair of incarcerated ventral hernia on 07/26/2016with multiple postoperative complications including wound dehiscence, abdominal wall abscesses and required further surgeries. Patient was discharged to TCU on 09/27/2016. Patient seen in the clinic by Dr. Vasquez with persistent drainage from old ED site. Patient returned to [facility] with left abdominal wall abscess. CT scan showed multiple areas of air containing abscesses within the soft tissue of ventral abdominal wall. She was started on IV antibiotics and a wound VAC was placed which was later on discontinued due to brownish purulent drainage from the EC fistula. Patient was transferred to [facility] for continued complex nonhealing open abdominal wall wound and EC fistula. She is on TPN and n.p.o. Currently receiving antibiotics for 1 more week. Abscess of postoperative wound of abdominal wall S/P repair of incancerated ventral hernia on 07/27/16: Now with low output enterocutaneous fistula butstill significant and a complex open nonhealing abdominal wound. Patient is n.p.o. Continue TPN. Goal is to improve nutrition with decrease in drainage from EC fistula. Pain controlled with as needed IV Dilaudid. Non healing midline open abdominal wound with EC fistula: wound is healing well. Small fistula with low- output. ?? Abdominal wall abscesses: Continue IV ceftriaxone and Flagyl for 1 more week from date of admission to [facility]. Plan to repeat CT abdomen and pelvis after completion of IV antibiotics on 11/26/2016 ?? Chronic diastolic heart failure: Patient takes Lasix 40 mg daily and atenolol at home. These medications are on hold for now. No signs of overt volume overload. However wt increasing. Started on atenolol as patient heart rate was above 100. Restart lasix 11/20 and cont monitor wt and BP Essential Hypertension: Currently controlled without medications. Restart IV Lasix if blood pressureis elevated ?? Lower extremity DVT: On therapeutic dose of Lovenox. Monitor hemoglobin ?? Severe Malnutrition: prealbumin 17.2. RD following. Patient is currently on TPN ?? Pure hypercholesterolemia: Statins on hold as patient is n.p.o. ?? Adjustment disorder: Started on Lexapro on 11/22. Continue supportive care and counseling. Psychiatrist and psychologist follow ?? Insomnia: Patient did not tolerate IV Ativan at [facility]. Continue IV Benadryl at bedtime Subjective: No acute issue overnight. Patient continues to have significant amount of drainage 290cc per 24 hr. continues to have leakage from the ostomy bag. Patient denies any pain. Objective: Vital signs in last 24 hours: Temp: [98.1 ??F (36.7 ??C)-98.6 ??F (37 ??C)] 98.6 ??F (37 ??C) Heart Rate: [72-89] 72 Resp: [17-18] 18 BP: (108-125)/(53-73) 125/58 Weight: 162 lb 11.2 oz (73.8 kg) Intake/Output last 3 shifts: I/O last 3 completed shifts: In: 3169.5 [I.V.:146; IV Piggyback:228] Out: 1450 [Urine:1450] Intake/Output this shift: Review of Systems: See Subjective General Appearance: appears comfortable, Alert, cooperative, no distress, Neck: Supple, symmetrical, trachea midline, no adenopathy; Lungs: Clear to auscultation bilaterally, respirations unlabored Heart: Regular rate and rhythm, S1 and S2 normal, no murmur, rubs or gallop Abdomen: Soft, non-tender, 2 stoma bags on midline and R lateral portion with thick brownish/yellowish drainage. +leakage of stoma bag Extremities: Extremities normal, atraumatic, no cyanosis or edemat. Skin: Large open nonhealing abdominal wound with midline EC fistula with yellowish/brown drainage. No bleeding. Examined with WOC. There is also small leakage from right abdominal wall ED site. Neurologic: normal and equal strength bilat in upper and lower extremities Medications: Scheduled Meds: ??? atenolol 50 mg Oral DAILY ??? cefTRIAXone (ROCEPHIN) 1 g in 50 mL NS 1 g Intravenous Q24H ??? diphenhydrAMINE 25 mg Intravenous QHS ??? enoxaparin 110 mg Subcutaneous Q24H ??? escitalopram oxalate 5 mg Oral DAILY ??? fat emulsion 250 mL Intravenous Once per day on Sat ??? furosemide 40 mg Oral DAILY ??? metroNIDAZOLE 500 mg Intravenous Q8H ??? sodium chloride 10-30 mL Intravenous Q8H FIXED TIMES Continuous Infusions: ??? dextrose 10% 80 mL/hr (11/16/161817) ??? TPN - Custom formula ??? TPN - Custom formula PRN Meds:.alteplase, bacitracin, dextrose 10%, dextrose 50 % (D50W) OR glucagon (human recombinant), diphenhydrAMINE, HYDROmorphone, naloxone OR naloxone, ondansetron, polyethylene glycol, sodium chloride, sodium chloride, sodium chloride, nacl 0.9%, white petrolatum Lab Results: (I have personally reviewed the results) No results found for this or any previous visit (from the past 24 hour(s)). Roberto Camacho MD - 11/22/2016 9:48 AM CDT Inpatient Followup Psychiatric Evaluation PLAN: Medication Adjustment: I am going to start the patient on low-dose Lexapro. Risks and benefits were discussed. At this timewe will continue with Benadryl at night. Other: Medical cares and therapies as per the attending team. I will continue to monitor the patient's mood, cognition and behavior. She continues to seek quite a bit of reassurance and appears depressed and anxious at times. No significant behavioral issues according to the nursing staff. There has been some nausea. She is making progress in physical therapy. She enjoys walking outside with the team. She is limited by the IV pole but otherwise is fairly independent. I do appreciate psychologies input. SUMMARY OF PSYCHIATRIC CARE THIS HOSPITALIZATION: The patient for an initial psychiatric consultation on November 20. She had multiple situational stressors and an extended hospitalization and appear depressed but she requested no psychotropic medicationaddition at that time. On November 22 I did start the patient on low dose Lexapro. Diagnosis managed and treated at today's visit : [place] I: Major depressive disorder, single episode, moderate to severe, without psychotic features Encephalopathy and possible mood disorder secondary to underlying medical issues including infection and recent surgery, improved [place] II: Deferred [place] III : Please see initial psychiatric consultation note Problem List: Principal Problem: Enterocutaneous fistula Active Problems: Abdominal wall abscess Essential hypertension Chronic diastolic heart failure Physical deconditioning Insomnia DVT, lower extremity Open abdominal wall wound, sequela Onychomycosis Onychauxis Adjustment disorder with mixed anxiety and depressed mood Current Symptoms: Patient admitted ongoing frustration and anxiety. She was unsure whether she was depressed but certainly had fairly negative descriptions of her current circumstance and interactions with staff. She again asked me about the role of an antidepressant medication. I did spend quite a bit of time talking with her about the risks and benefits and she did ask that I start her on an antidepressant. She denies having any suicidality. She denies confusion. She denies psychosis. She states she is sleeping well with the Benadryl. She offered no other questions or concerns at this time. She was quite anxious that her therapy was 5 minutes late today. Mental Status Exam: Appearance: Patient was sitting up. Slow with limited eye contact. Not agitated. Not restless. No obvious pain or shortness of breath. She was tracking fairly well. Behavior: Cooperative and able to initiate. She does seek reassurance. No agitation. No restlessness. Speech: Soft-spoken and monotone. Sentence structure is intact. Not pressured or rambling. Able to initiate. Mood/Affect: Depressed and somewhat anxious. Not labile or agitated. Slightly irritable. Attention and concentration: Both are grossly intact Thought Content: No psychosis Suicidal/Homicidal Ideation: None Thought Process: Perhaps somewhat slow. Not loose. No racing thoughts. Able to process information. Insight: Fair. Please see above Judgement: Fair. Please see above Memory: Grossly intact Gait/Motor Status: No tremor. Please see therapy notes Orientation: Grossly oriented. Please see therapy notes Pertinent History: Racquel Jones is a 71 y.o. female was admitted to the medical service under thecare of the hospitalist team on November 16 of this year. The patient has a history of a DVT in the lower extremity as well as a small bowel obstruction and an incarcerated ventral hernia. She had a mesh repair on July 26 which was complicated postoperatively by wound infection and dehiscence as well as abscess formation. This required further surgery and removal of the mesh and debridements. She was stabilized and discharged to a TCU on September 27 of this year. She had multiple admissions following this due to wound issues. She required IV antibiotics. She has had persistent drainage from an old ED site. T he patient was seen in clinic on November 01 and sent home but there was concern for abscess of the leftside of the abdomen. A CT showed an air-containing abscess which had grown in size. This was in the soft tissues of the ventral abdominal wall. She required I&D and further IV antibiotics. Please see the chart for details. Ultimately she is required a wound VAC and has had multiple other procedures. She was sent here for further assessment and treatment. I been asked to render a psychiatric consultation due to concerns that depression may be compromising her progress here. Current Medications: ??? atenolol 50 mg Oral DAILY ??? cefTRIAXone (ROCEPHIN) 1 g in 50 mL NS 1 g Intravenous Q24H ??? diphenhydrAMINE 25 mg Intravenous QHS ??? enoxaparin 110 mg Subcutaneous Q24H ??? fat emulsion 250 mL Intravenous Once per day on Sat ??? furosemide 40 mg Oral DAILY ??? metroNIDAZOLE 500 mg Intravenous Q8H ??? sodium chloride 10-30 mL Intravenous Q8H FIXED TIMES alteplase, bacitracin, dextrose 10%, dextrose 50 % (D50W) OR glucagon (human recombinant), diphenhydrAMINE, HYDROmorphone, naloxone OR naloxone, ondansetron, polyethylene glycol, sodium chloride, sodium chloride, sodium chloride, nacl 0.9%, white petrolatum Medication Compliance: yes Side Effects to Medications: no Vitals: Wt Readings from Last 3 Encounters: 11/22/16 162 lb 11.2 oz (73.8 kg) Temp Readings from Last 3 Encounters: 11/22/16 98.1 ??F (36.7 ??C) (Oral) BP Readings from Last 3 Encounters: 11/22/16 118/73 Pulse Readings from Last 3 Encounters: 11/22/16 89 Recent Labs: Recent Results (from the past 48 hour(s)) POCT Glucose Collection Time: 11/20/16 12:12 PM Result Value Ref Range Glucose, POC 147 mg/dL We will continue with the structure and support of the unit, reassurance, and redirection. Staff monitoring and ongoing assessments per team plan. Current psychotropic medication appears to represent the minimum effective dosage and appears medically necessary. We will continue to monitor and reassess. I will be available if concerns or problems arise. Much or all of the text in this note was generated through the use of [employer] [id number] software. Errors in spelling or words which seem out of context are unintentional. Sound alike errors,in particular, may have escaped editing. Roberto Camacho David Gayle MD - 11/21/2016 2:48 PM CDT [facility] Hospitalist Daily Progress Note Assessment/Plan (Active Issues) Patient is a pleasant 71-year-old female with past medical history of lower extremity DVT, small bowel obstruction, incarcerated ventral hernia who had repair of incarcerated ventral hernia on 07/26/2016with multiple postoperative complications including wound dehiscence, abdominal wall abscesses and required further surgeries. Patient was discharged to TCU on 09/27/2016. Patient seen in the clinic by Dr. Vasquez with persistent drainage from old ED site. Patient returned to [facility] with left abdominal wall abscess. CT scan showed multiple areas of air containing abscesses within the soft tissue of ventral abdominal wall. She was started on IV antibiotics and a wound VAC was placed which was later on discontinued due to brownish purulent drainage from the EC fistula. Patient was transferred to [facility] for continued complex nonhealing open abdominal wall wound and EC fistula. She is on TPN and n.p.o. Currently receiving antibiotics for 1 more week. Abscess of postoperative wound of abdominal wall S/P repair of incancerated ventral hernia on 07/27/16: Now with low output enterocutaneous fistula butstill significant and a complex open nonhealing abdominal wound. Patient is n.p.o. Continue TPN. Goal is to improve nutrition with decrease in drainage from EC fistula. Pain controlled with as needed IV Dilaudid. Non healing midline open abdominal wound with EC fistula: wound is healing well. Small fistula with low- output. ?? Abdominal wall abscesses: Continue IV ceftriaxone and Flagyl for 1 more week from date of admission to [facility]. Plan to repeat CT abdomen and pelvis after completion of IV antibiotics on 11/26/2016 ?? Chronic diastolic heart failure: Patient takes Lasix 40 mg daily and atenolol at home. These medications are on hold for now. No signs of overt volume overload. However wt increasing. Started on atenolol as patient heart rate was above 100. Restart lasix 8/1 and cont monitor wt and BP Essential Hypertension: Currently controlled without medications. Restart IV Lasix if blood pressureis elevated ?? Lower extremity DVT: On therapeutic dose of Lovenox. Monitor hemoglobin ?? Severe Malnutrition: prealbumin 17.2. RD following. Patient is currently on TPN ?? Pure hypercholesterolemia: Statins on hold as patient is n.p.o. ?? Adjustment disorder: Continue supportive care and counseling. Psychiatrist and psychologist follow ?? Insomnia: Patient did not tolerate IV Ativan at [facility]. Continue IV Benadryl at bedtime Subjective: No acute issue overnight. Patient continues to have significant amount of drainage. Otherwise she isdoing okay. Patient concerned a lot about duration in the hospital. Met with patient and her daughter. Answer concern and question regarding the patient treatment and discharge plan Total extra time > 30 [id number] Objective: Vital signs in last 24 hours: Temp: [98 ??F (36.7 ??C)-98.9 ??F (37.2 ??C)] 98.3 ??F (36.8 ??C) Heart Rate: [85-94] 90 Resp: [18-20] 20 BP: (111-129)/(59-60) 129/60 Weight: 161 lb 9.6 oz (73.3 kg) Intake/Output last 3 shifts: I/O last 3 completed shifts: In: 2520.1 [I.V.:85; IV Piggyback:293] Out: 1640 [Urine:1350; Drains:290] Intake/Output this shift: I/O this shift: In: 127 [IV Piggyback:127] Out: 500 [Urine:350; Drains:150] Review of Systems: See Subjective General Appearance: appears comfortable, Alert, cooperative, no distress, Neck: Supple, symmetrical, trachea midline, no adenopathy; Lungs: Clear to auscultation bilaterally, respirations unlabored Heart: Regular rate and rhythm, S1 and S2 normal, no murmur, rubs or gallop Abdomen: Soft, non-tender, 2 stoma bags on midline and R lateral portion with yellowish drainage. Extremities: Extremities normal, atraumatic, no cyanosis or edemat. Skin: Large open nonhealing abdominal wound with midline EC fistula with yellowish/brown drainage. No bleeding. Examined with WOC. There is also small leakage from right abdominal wall ED site. Neurologic: normal and equal strength bilat in upper and lower extremities Medications: Scheduled Meds: ??? atenolol 50 mg Oral DAILY ??? cefTRIAXone (ROCEPHIN) 1 g in 50 mL NS 1 g Intravenous Q24H ??? diphenhydrAMINE 25 mg Intravenous QHS ??? enoxaparin 110 mg Subcutaneous Q24H ??? fat emulsion 250 mL Intravenous Once per day on Sat ??? furosemide 40 mg Oral DAILY ??? metroNIDAZOLE 500 mg Intravenous Q8H ??? sodium chloride 10-30 mL Intravenous Q8H FIXED TIMES Continuous Infusions: ??? dextrose 10% 80 mL/hr (11/16/161817) ??? TPN - Custom formula ??? TPN - Custom formula PRN Meds:.alteplase, bacitracin, dextrose 10%, dextrose 50 % (D50W) OR glucagon (human recombinant), diphenhydrAMINE, HYDROmorphone, naloxone OR naloxone, ondansetron, polyethylene glycol, sodium chloride, sodium chloride, sodium chloride, nacl 0.9%, white petrolatum Lab Results: (I have personally reviewed the results) No results found for this or any previous visit (from the past 24 hour(s)). Roberto Camacho MD - 11/21/2016 10:38 AM CDT Inpatient Followup Psychiatric Evaluation PLAN: Medication Adjustment: I will make no psychotropic medication changes at this time. Although I do believe the patient couldbenefit from an antidepressant trial at this time she is declining that offer. Other: Medical cares and therapies as per the attending team. I will continue to monitor the patient's mood, cognition and behavior. Briefly met with the patient's daughter today. I discussed my role in the patient's care (with the patient's permission) we discussed some of the concerns the patient was having and my recommendation that she follow medical advice regarding discharge. The daughter agreed. SUMMARY OF PSYCHIATRIC CARE THIS HOSPITALIZATION: The patient for an initial psychiatric consultation on November 20. She had multiple situational stressors and an extended hospitalization and appear depressed but she requested no psychotropic medicationaddition at that time. Diagnosis managed and treated at today's visit : [place] I: Major depressive disorder, single episode, moderate to severe, without psychotic features Encephalopathy and possible mood disorder secondary to underlying medical issues including infection and recent surgery, improved [place] II: Deferred [place] III : Please see initial psychiatric consultation note Problem List: Principal Problem: Enterocutaneous fistula Active Problems: Abdominal wall abscess Essential hypertension Chronic diastolic heart failure Physical deconditioning Insomnia DVT, lower extremity Open abdominal wall wound, sequela Onychomycosis Onychauxis Current Symptoms: Patient continues to be frustrated and unsure whether she is depressed. She reports that her plan isto possibly discharge next week. She is waiting for additional information in the form of further radiographic studies and she is going to talk to the doctor about changing over to p.o. medications. She tells me that 1 of the reasons is because she has been told that her lifetime Medicare benefit willrun out. She is meeting with a financial analyst accountant today to further discuss this. She states she is sleeping fairly well. She denies having any confusion or hallucinations. She denies having any desire to be or thoughts of suicide. Mental Status Exam: Appearance: Sitting up. She was somewhat psychomotor slowed and flat. No pain. No shortness of breath. Behavior: Able to track and follow. Cooperative and pleasant but again a bit defensive. Speech: Monotone, soft-spoken and simple responses but appropriate. Able to dialogue. Able to initiate. Not pressured or rambling. Mood/Affect: Depressed. Flat and slow. Not anxious. No lability. Attention and concentration: Both are grossly intact Thought Content: No psychosis Suicidal/Homicidal Ideation: None Thought Process: Not loose. No racing thoughts. Able to track and process information appropriately. Insight: Fair. Please see above Judgement: Fair. Please see above Memory: Grossly intact Gait/Motor Status: No tremor. Please see therapy notes Orientation: Grossly oriented. Please see therapy notes Pertinent History: Racquel Jones is a 71 y.o. female was admitted to the medical service under thecare of the hospitalist team on November 16 of this year. The patient has a history of a DVT in the lower extremity as well as a small bowel obstruction and an incarcerated ventral hernia. She had a mesh repair on July 26 which was complicated postoperatively by wound infection and dehiscence as well as abscess formation. This required further surgery and removal of the mesh and debridements. She was stabilized and discharged to a TCU on September 27 of this year. She had multiple admissions following this due to wound issues. She required IV antibiotics. She has had persistent drainage from an old ED site. T he patient was seen in clinic on November 01 and sent home but there was concern for abscess of the leftside of the abdomen. A CT showed an air-containing abscess which had grown in size. This was in the soft tissues of the ventral abdominal wall. She required I&D and further IV antibiotics. Please see the chart for details. Ultimately she is required a wound VAC and has had multiple other procedures. She was sent here for further assessment and treatment. I been asked to render a psychiatric consultation due to concerns that depression may be compromising her progress here. Current Medications: ??? atenolol 50 mg Oral DAILY ??? cefTRIAXone (ROCEPHIN) 1 g in 50 mL NS 1 g Intravenous Q24H ??? diphenhydrAMINE 25 mg Intravenous QHS ??? enoxaparin 110 mg Subcutaneous Q24H ??? fat emulsion 250 mL Intravenous Once per day on Sat ??? furosemide 40 mg Oral DAILY ??? metroNIDAZOLE 500 mg Intravenous Q8H ??? sodium chloride 10-30 mL Intravenous Q8H FIXED TIMES alteplase, bacitracin, dextrose 10%, dextrose 50 % (D50W) OR glucagon (human recombinant), diphenhydrAMINE, HYDROmorphone, naloxone OR naloxone, ondansetron, polyethylene glycol, sodium chloride, sodium chloride, sodium chloride, nacl 0.9%, white petrolatum Medication Compliance: yes Side Effects to Medications: no Vitals: Wt Readings from Last 3 Encounters: 11/20/16 163 lb 6.4 oz (74.1 kg) Temp Readings from Last 3 Encounters: 11/21/16 98.3 ??F (36.8 ??C) (Oral) BP Readings from Last 3 Encounters: 11/21/16 129/60 Pulse Readings from Last 3 Encounters: 11/21/16 90 Recent Labs: Recent Results (from the past 48 hour(s)) POCT Glucose Collection Time: 11/19/16 11:54 AM Result Value Ref Range Glucose, POC 140 mg/dL TPN Panel Collection Time: 11/20/16 5:56 AM Result Value Ref Range Sodium 136 136 - 145 mmol/L Potassium 3.9 3.5 - 5.0 mmol/L Chloride 104 98 - 107 mmol/L CO2 25 22 - 31 mmol/L Glucose 101 70 - 125 mg/dL BUN 16 8 - 28 mg/dL Creatinine 0.52 (L) 0.60 - 1.10 mg/dL GFR MDRD Af Amer >60 >60 mL/min/1.73m2 GFR MDRD Non Af Amer >60 >60 mL/min/1.73m2 Calcium 8.2 (L) 8.5 - 10.5 mg/dL Bilirubin, Total 0.2 0.0 - 1.0 mg/dL Phosphorus 3.8 2.5 - 4.5 mg/dL Protein, Total 6.1 6.0 - 8.0 g/dL Alkaline Phosphatase 54 45 - 120 U/L AST 15 0 - 40 U/L Magnesium 1.7 (L) 1.8 - 2.6 mg/dL Triglycerides 139 <=149 mg/dL Prealbumin 17.8 (L) 19.0 - 38.0 mg/dL Albumin 2.6 (L) 3.5 - 5.0 g/dL INR Collection Time: 11/20/16 5:56 AM Result Value Ref Range INR 1.04 0.90 - 1.10 POCT Glucose Collection Time: 11/20/16 12:12 PM Result Value Ref Range Glucose, POC 147 mg/dL We will continue with the structure and support of the unit, reassurance, and redirection. Staff monitoring and ongoing assessments per team plan. Current psychotropic medication appears to represent the minimum effective dosage and appears medically necessary. We will continue to monitor and reassess. I will be available if concerns or problems arise. Much or all of the text in this note was generated through the use of [employer] [id number] software. Errors in spelling or words which seem out of context are unintentional. Sound alike errors,in particular, may have escaped editing. Roberto Camacho David Gayle MD - 11/20/2016 1:37 PM CDT [facility] Hospitalist Daily Progress Note Assessment/Plan (Active Issues) Patient is a pleasant 71-year-old female with past medical history of lower extremity DVT, small bowel obstruction, incarcerated ventral hernia who had repair of incarcerated ventral hernia on 07/26/2016with multiple postoperative complications including wound dehiscence, abdominal wall abscesses and required further surgeries. Patient was discharged to TCU on 09/27/2016. Patient seen in the clinic by Dr. Vasquez with persistent drainage from old ED site. Patient returned to [facility] with left abdominal wall abscess. CT scan showed multiple areas of air containing abscesses within the soft tissue of ventral abdominal wall. She was started on IV antibiotics and a wound VAC was placed which was later on discontinued due to brownish purulent drainage from the EC fistula. Patient was transferred to [facility] for continued complex nonhealing open abdominal wall wound and EC fistula. She is on TPN and n.p.o. Currently receiving antibiotics for 1 more week. Abscess of postoperative wound of abdominal wall S/P repair of incancerated ventral hernia on 07/27/16: Now with low output enterocutaneous fistula butstill significant and a complex open nonhealing abdominal wound. Patient is n.p.o. Continue TPN. Goal is to improve nutrition with decrease in drainage from EC fistula. Pain controlled with as needed IV Dilaudid. Non healing midline open abdominal wound with EC fistula: wound is healing well. Small fistula with low- output. ?? Abdominal wall abscesses: Continue IV ceftriaxone and Flagyl for 1 more week from date of admission to [facility]. Plan to repeat CT abdomen and pelvis after completion of IV antibiotics on 11/26/2016 ?? Chronic diastolic heart failure: Patient takes Lasix 40 mg daily and atenolol at home. These medications are on hold for now. No signs of overt volume overload. However wt increasing. Started on atenolol as patient heart rate was above 100. Will restart lasix and cont monitor wt and BP Essential Hypertension: Currently controlled without medications. Restart IV Lasix if blood pressureis elevated ?? Lower extremity DVT: On therapeutic dose of Lovenox. Monitor hemoglobin ?? Severe Malnutrition: prealbumin 17.2. RD following. Patient is currently on TPN ?? Pure hypercholesterolemia: Statins on hold as patient is n.p.o. ?? Adjustment disorder: Continue supportive care and counseling. Psychiatrist and psychologist follow ?? Insomnia: Patient did not tolerate IV Ativan at [facility]. Continue IV Benadryl at bedtime Subjective: No acute issue overnight. Patient denies any abdominal pain. Total 275 cc of drainage last 24 hrs. She report of loose bowel movement but not sure when that happened. Patient asking question regarding of restarting diet and also wound care. Objective: Vital signs in last 24 hours: Temp: [98.1 ??F (36.7 ??C)-99.1 ??F (37.3 ??C)] 98.3 ??F (36.8 ??C) Heart Rate: [79-106] 95 Resp: [16-18] 18 BP: (110-137)/(53-86) 117/56 Weight: 163 lb 6.4 oz (74.1 kg) Intake/Output last 3 shifts: I/O last 3 completed shifts: In: 2716.5 [I.V.:110; IV Piggyback:422] Out: 1375 [Urine:1100; Drains:275] Intake/Output this shift: I/O this shift: In: - Out: 265 [Urine:200; Drains:65] Review of Systems: See Subjective General Appearance: appears comfortable, Alert, cooperative, no distress, Neck: Supple, symmetrical, trachea midline, no adenopathy; Lungs: Clear to auscultation bilaterally, respirations unlabored Heart: Regular rate and rhythm, S1 and S2 normal, no murmur, rubs or gallop Abdomen: Soft, non-tender, 2 stoma bags on midline and R lateral portion with yellowish drainage. Extremities: Extremities normal, atraumatic, no cyanosis or edemat. Skin: Large open nonhealing abdominal wound with midline EC fistula with yellowish/brown drainage. No bleeding. Examined with WOC. There is also small leakage from right abdominal wall ED site. Neurologic: normal and equal strength bilat in upper and lower extremities Medications: Scheduled Meds: ??? atenolol 50 mg Oral DAILY ??? cefTRIAXone (ROCEPHIN) 1 g in 50 mL NS 1 g Intravenous Q24H ??? diphenhydrAMINE 25 mg Intravenous QHS ??? enoxaparin 110 mg Subcutaneous Q24H ??? fat emulsion 250 mL Intravenous Once per day on Sat ??? metroNIDAZOLE 500 mg Intravenous Q8H ??? sodium chloride 10-30 mL Intravenous Q8H FIXED TIMES ??? white petrolatum Topical DAILY Continuous Infusions: ??? dextrose 10% 80 mL/hr (11/16/161817) ??? TPN - Custom formula 80 mL/hr at 11/19/16 2019 ??? TPN - Custom formula PRN Meds:.alteplase, bacitracin, dextrose 10%, dextrose 50 % (D50W) OR glucagon (human recombinant), diphenhydrAMINE, HYDROmorphone, naloxone OR naloxone, ondansetron, polyethylene glycol, sodium chloride, sodium chloride, sodium chloride, nacl 0.9% Lab Results: (I have personally reviewed the results) Recent Results (from the past 24 hour(s)) TPN Panel Collection Time: 11/20/16 5:56 AM Result Value Ref Range Sodium 136 136 - 145 mmol/L Potassium 3.9 3.5 - 5.0 mmol/L Chloride 104 98 - 107 mmol/L CO2 25 22 - 31 mmol/L Glucose 101 70 - 125 mg/dL BUN 16 8 - 28 mg/dL Creatinine 0.52 (L) 0.60 - 1.10 mg/dL GFR MDRD Af Amer >60 >60 mL/min/1.73m2 GFR MDRD Non Af Amer >60 >60 mL/min/1.73m2 Calcium 8.2 (L) 8.5 - 10.5 mg/dL Bilirubin, Total 0.2 0.0 - 1.0 mg/dL Phosphorus 3.8 2.5 - 4.5 mg/dL Protein, Total 6.1 6.0 - 8.0 g/dL Alkaline Phosphatase 54 45 - 120 U/L AST 15 0 - 40 U/L Magnesium 1.7 (L) 1.8 - 2.6 mg/dL Triglycerides 139 <=149 mg/dL Prealbumin 17.8 (L) 19.0 - 38.0 mg/dL Albumin 2.6 (L) 3.5 - 5.0 g/dL INR Collection Time: 11/20/16 5:56 AM Result Value Ref Range INR 1.04 0.90 - 1.10 POCT Glucose Collection Time: 11/20/16 12:12 PM Result Value Ref Range Glucose, POC 147 mg/dL Karma Chung - 11/20/2016 9:26 AM CDT Clinical Nutrition Therapy Reassessment Note Reason for Reassessment: Per protocol/pathway, manage TPN. Pt scheduled with therapy soon so customs entry writer not able to see. I did introduce myself to patient yesterday & mentioned to her that Wanda (casual dietitian) here says high to patient as she knows her [facility]. Current Nutrition Prescription: Diet: NPO TPN: Dex 15% + AA's 5.5% at 80 ml/hr-AA increased on 11/17 Lipids:20% 250 ml 5x/week Current Nutrition Intake: Parenteral nutrition access is a central line. The current nutrition order will provide: 1720 kcals, 105 grams protein, 288 grams carbohydrate, 39.6 grams fat daily average, and 1920 mls fluid daily. Meeting estimated needs on parenteral nutrition. Anthropometrics: Height: 5' 1 (154.9 cm) Admission weight: 162 lb Weight: 159 lb 11.2 oz (72.4 kg)(11/18) [place] body weight 105 lb +/- 10% % ideal body wt: 151%(+or-10%) Usual body weight 180 lb prior to 07/2016. Weight History: 07/25/16, 180 lb 10/31/16, 161 lb Significant wt loss of 18 lb (10%) past 3.5 months. Appears to be more stable now. Physical Findings: The patient has the following physical signs which could indicate malnutrition: Not able to see patient today GI Status/Output: EC fistula. Drain x 2: 225-275 ml/24 hrs noted past couple days Small loose BM noted this morning Skin/Wound: Chavo score Chavo Scale Score: 18 Abdominal surgical wound w/EC fistula Medications: Medications reviewed. MVI & trace elements in TPN Labs: Lab Results Component Value Date/Time PREALBUMIN 17.8 (L) 11/20/2016 05:56 AM ALBUMIN 2.6 (L) 11/20/2016 05:56 AM NA 136 11/20/2016 05:56 AM K 3.9 11/20/2016 05:56 AM BUN 16 11/20/2016 05:56 AM CREATININE 0.52 (L) 11/20/2016 05:56 AM GLU 101 11/20/2016 05:56 AM M.7(11/20/16)-slightly low Noted albumin & prealbumin trending up Trigs: 139(11/20/16)-WNL AST:15, ALP:54(11/20/16)-WNL Assessed Nutritional Needs: Assessment weight is 54 kg, with a weight source of adjusted Estimated Energy Needs: 0653-8574 kcals daily per 30-35 kcal/kg Estimated Protein Needs: 81-108 g daily, 1.5-2 g/kg. Estimated Fluid Needs: 4541-6725 mls daily, 30-35 mls/kg Malnutrition: Severe Protein Calorie Malnutrition noted Nutrition Risk Level: high-stable risk Nutrition dx: Increased nutrient needs r/t wound healing & malnutrition evidenced by EC fistula, wt loss, wound. Altered GI function r/t EC fistula evidenced by need for NPO/TPN. Goals: Meet nutrition needs via TPN-progressing Minimize further wt loss-progressing Wound/fistula healing & transition back to po diet-noted abdominal CT next week Intervention: Continue current TPN. Pharmacy is managing electrolytes. Monitoring: TPN (macronutrients; pharmacy to monitor micronutrients), wts, labs, GI function, wound progress perWOC See Care Plan for Problems, Goals, and Interventions. Chavez David [facility] - 11/20/2016 9:19 AM CDT Pharmacy Note: Total Parenteral Nutrition (TPN) Management Pharmacist consulted to dose TPN for Racquel Jones, a 71 y.o[address] female by Dr. Burnham. Subjective: Indication for TPN therapy: enterocutaneous fistula Inadequate nutrition existing for > 7 days. Enteral nutrition contraindicated due to: small bowel obstruction. Pertinent diseases and other special considerations None Social History Substance Use Topics ??? Smoking status: Never Smoker ??? Smokeless tobacco: Never Used ??? Alcohol use Yes Comment: once a month when out for dinner Objective: Height: 5' 1 (1.549 m) Weight: 72.4 kg (159 lb 11.2 oz) Body mass index is 30.18 kg/(m^2). Patient Vitals for the past 96 hrs: Weight 11/18/16 1845 72.4 kg (159 lb 11.2 oz) 11/17/16 0918 73.8 kg (162 lb 12.8 oz) 11/16/16 1244 73.4 kg (161 lb 12.8 oz) 11/16/16 1158 73.4 kg (161 lb 12.8 oz) Labs: Last 3 days: Recent Labs 11/20/16 0556 NA 136 K 3.9 CL 104 CO2 25 BUN 16 CREATININE 0.52* GLU 101 CALCIUM 8.2* MG 1.7* PHOS 3.8 PROT 6.1 ALBUMIN 2.6* PREALBUMIN 17.8* TRIG 139 BILITOT 0.2 AST 15 ALKPHOS 54 INR 1.04 Fingerstick Blood Glucose (past 48 hours): Recent Labs 11/18/16 1324 11/18/16 1810 11/19/16 0247 11/19/16 0557 11/19/16 1154 [id number] 143 85 112 112 140 Intake/Output (last 24 hours): I/O last 3 completed shifts: In: 2716.5 [I.V.:110; IV Piggyback:422] Out: 1375 [Urine:1100; Drains:275] Estimated CrCl: Estimated Creatinine Clearance: 58.7 mL/min (by C-G formula based on Cr of 0.52). Assessment: Continue patient on TPN therapy as a continuous central therapy. Given the patient's current condition/oral intake, PN is still indicated. Lab results reviewed: 11/17 Plan: 1. Rate of TPN: 80 mL/hr. Maintenance IV fluid rate will be adjusted appropriately to meet the totalmaximum IV fluids rate as ordered by provider. 2. Formula: ?? Amino Acids 5.5 % ?? Dextrose 15 % ?? Sodium 35 mEq/L ?? Potassium 30 mEq/L ?? Magnesium 8 mEq/L... Increase to 12 ?? Calcium 4.5 mEq/L ?? Phosphorus 15 mMol/L ?? Chloride: Acetate Ratio 1:2 ?? Standard Multivitamins w/Vitamin K ?? Trace Elements 3. Fat Emulsion: 20%, 250 mL IV 5 times weekly. 4. Check hyperal lytes labs twice weekly and as needed. 5. Pharmacist will continue to follow the patient's lab results, clinical status and blood glucose results and make adjustments as appropriate. Thank you for the consult. Chavez David RPh 11/20/2016 9:19 AM Historical Provider - 11/19/2016 4:28 PM CDT Therapeutic Recreation 11/19/16 1400 Time Spent With Patient Treatment Start Time 1400 Treatment End Time 1430 Leisure Interests Leisure Interests Cooking/Baking;Crafts/Arts;Movies/TV;Listening to music;Pets;Reading;Relaxation activities;Singing;Social activities;Spiritual activities Prior Status Independent With Leisure/Interests Lives With Alone Patient seen in [facility] clinic for evaluation. Initially appeared withdrawn and slightly depressed. Spokeof leisure interests and hospitalization. Patient interested in TR and will be added to schedule. Orders for outside will be requested. Provided dvd list and leisure resource list. Needs assistancewith MC. Sanjana Oliveira, Rec Therapist Nati Davenport - 11/19/2016 2:47 PM CDT INPATIENT CLINICAL SOCIAL WORK PSYCHOSOCIAL ASSESSMENT PRIMARY DECISION MAKER FOR HEALTHCARE Primary Decision Maker: Patient EMERGENCY CONTACT/S Name Home Phone Work Phone Mobile Phone Relationship Lgl Yousif PRADEEP CHAPPELLE [phone] GELY Joyner [phone] Child HEALTHCARE DIRECTIVE Advance Directive: Patient does not have advance directive Advance Directive Information Requested?: Patient would not like information PRESENTING REASON FOR HOSPITALIZATION: Racquel Jones is a 71 y.o. old female. History is provided by reviewing the records and speaking with transferring provider. Malaika Jones has history of DVT of lower extremity, small bowel obstruction, incarcerated ventral hernia, elevated alkaline phosphatase DEVELOPED incarcerated ventral hernia, had repair with a mesh by Dr. Aly Fontanez on 07/26/2016 complicated by postoperative wound infection with dehiscence and abscess on 08/06/2016, infected mesh with abdominal wall abscess/draining sinus status post laparotomy and removal of infected mesh, repair of recurrent incisional hernia with non synthetic mesh, debridement of abdominal wall on 09/18/2016 and discharged to TCU on 09/27/2016. Pt needed multiple admissions postprocedure and also received IV antibiotics. Patient continued to have persistent drainage from old right ED site and was seen in clinic on 11/01/[address] Vasquez. Patient was sent home. edge roller suspected that patient had abscess on left side of the abdomen. He was sent to the hospital and underwent a CT of the abdomen and pelvis which showed increased size of air-containing abscesses within the soft tissue of the ventral abdominal wall with an abscess and m ultiple other abdominal findings. She was seen by surgery and ID and started on IV antibiotics. Dr. Fontana from surgery, Opened small central opening that led to a larger cavity. Purulent drainage from midline wound and drain site. Phasix mesh is palpable at base of wound. Tracking of cavity. Reasonably solid upper and lower midline granulation tissue. It was then packed. On a wound VAC wasplaced. On wound VAC was discontinued due to copious drainage brownish purulent fluid likely from EC fistula ?? 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 Patient is made n.p.o. and receiving TPN. She will complete course of IV antibiotics, ceftriaxone and Flagyl after 1 week. Patient was transferred to [facility] for continued complex medical and wound care management LEGAL Legal Status: None FINANCIAL Payor/s Payor Plan MEDICARE MEDICARE A AND B 2 Payor Plan [facility] [place] [employer] Eligible?: No VA Benefits? : No Medical Assistance: No [facility] Financial Responsibility: [place] Referral to Financial SW: No OCCUPATION / EDUCATION Type of Employment: Retired SPIRITUAL / CULTURAL Identified Episcopal: Orthodoxy Traditions/Cultural Practices that Help: No CHEMICAL /PSYCHIATRIC BEHAVIORAL HEALTH Concerns of substance / chemical use? : No Concerns for mental/behavioral wellbeing? : Yes (Pt stated she is very anxious and angry over her current medical diagnosis. ) HOME / LIVING ENVIRONMENT Living Arrangements: Alone Type of Residence: Private residence Type of Home/Layout: Single family home, Split level/walkout, can live on one level, number of stairs outside (comment) (Pt has two steps to enter into her home, and 6 steps to reach main level.) DAILY ROUTINE / FUNCTIONAL STATUS ADL / IADL Limits: No Drives?: Yes Prior Home Equipment: Cane, Walker, Grab bars, bathing supplies COMMUNITY SERVICES Community Services : None Primary Care Provider: Eloise Malave MD FAMILY / SOCIAL SUPPORT Primary Caregiver: Self Identified Primary Caregiver in anticipation of a discharge home with aftercare needs: Family Support Systems: Children, Family members, Friends/neighbors, Restorationist/michelle community ANTICIPATED DISCHARGE NEEDS Anticipated discharge needs: HHC, Independent SW will partner with pt & family on discharge plans. Will provide them a list of Medicare-certified SNFs and/or shrimp peeling machine tender once post-acute care needs are determined. SUBJECTIVE ASSESSMENT SW introduced role of Care Management to patient during What to Expect meeting this morning. Pt was fully dressed, awake, alert, and seated in the bedside chair during the WTE meeting. Pt was extremelyanxious and expressed anger and disappointment regarding her medical situation. Pt would like to discharge from as soon as possible. Pt is concerned about her insurance coverage and Medicare [place]. RNCM Reny Torres discussed information with the pt as well as providing her with written information regarding insurance coverage. Financial Worker, Harpreet Allen was to meet with pt to further discuss insurance coverage. Pt stated she was 100% independent prior to medical diagnosis,pt enjoys attending band concerts, attending [employer] games and [employer] games. Pt has two son's and one daughter who live in the [facility] as well. Pt stated she wants to get back to her home that she has lived in for over 35 years. Pt is active and is on a bowling league, unfortunately pt had to cancel a bus tour vacation which was scheduled for the end of December due to her medical condition. Pt has utilized [facility] for her wound care and would like to explore using themagain upon d/c from . Likely pt will return to home once she is medically stable and off of TPN. SW will partner with pt to ensure a safe and appropriate discharge plan. PLAN / FOLLOW-UP SW will provide emotional support, resources and discharge planning with pt and family. Nati Davenport Azar Ashraf - 11/19/2016 1:15 PM CDT Spiritual Care Note: Spiritual Assessment: ?? I reviewed Racquel's chart as appropriate before going to see her. ?? She was with another member of her care team when I went by her room and was unavailable to visit. ?? I was unable to update her spiritual assessment at this time. Care Provided: ?? Reviewed Racquel's chart ?? Attempted to provide spiritual support Plan of Care: ?? I will attempt to follow up with Racquel at a later time. ?? I will continue to make additional visits as requested by Racquel, her family or other visitors, and as referred by staff. Azar Ashraf MDiv. Lead Cutter Head Sharpener [phone] Jenni Burnham MD - 11/19/2016 7:40 AM CDT [facility] Hospitalist Daily Progress Note Assessment/Plan (Active Issues) Patient is a pleasant 71-year-old female with past medical history of lower extremity DVT, small bowel obstruction, incarcerated ventral hernia who had repair of incarcerated ventral hernia on 07/26/2016with multiple postoperative complications including wound dehiscence, abdominal wall abscesses and required further surgeries. Patient was discharged to TCU on 09/27/2016. Patient seen in the clinic by Dr. Vasquez with persistent drainage from old ED site. Patient returned to [facility] with left abdominal wall abscess. CT scan showed multiple areas of air containing abscesses within the soft tissue of ventral abdominal wall. She was started on IV antibiotics and a wound VAC was placed which was later on discontinued due to brownish purulent drainage from the EC fistula. Patient was transferred to [facility] for continued complex nonhealing open abdominal wall wound and EC fistula. She is on TPN and n.p.o. Currently receiving antibiotics for 1 more week. Abscess of postoperative wound of abdominal wall S/P repair of incancerated ventral hernia on 07/27/16: Now with low output enterocutaneous fistula susan complex open nonhealing abdominal wound. Patient is n.p.o. Continue TPN. Goal is to improve nutrition with decrease in drainage from EC fistula. Pain controlled with as needed IV Dilaudid. Non healing midline open abdominal wound with EC fistula: wound is healing well. Small fistula with low- output. ?? Abdominal wall abscesses: Continue IV ceftriaxone and Flagyl for 1 more week from date of admission to [facility]. Plan to repeat CT abdomen and pelvis after completion of IV antibiotics on 11/26/2016 ?? Chronic diastolic heart failure: Patient takes Lasix 40 mg daily and atenolol at home. These medications are on hold for now. No signs of volume overload ??Started on atenolol as patient heart rate was above 100. Now controlled. Essential Hypertension: Currently controlled without medications. Restart IV Lasix if blood pressureis elevated ?? Lower extremity DVT: On therapeutic dose of Lovenox. Monitor hemoglobin ?? Severe Malnutrition: prealbumin 17.2. RD following. Patient is currently on TPN ?? Pure hypercholesterolemia: Statins on hold as patient is n.p.o. ?? Adjustment disorder: Continue supportive care and counseling. Consult psychiatry if needed ?? Insomnia: Patient did not tolerate IV Ativan at [facility]. Continue IV Benadryl at bedtime Subjective: Pt is very anxious about lot of issues....insurance, post op complications, prognosis, discharge, halfway complications. Had 40 min discussion with pt about all these issues. Explained that these issues are expected to resolve completley but it will take a few weeks. Plan for CT abdomen and pelvis next week. Patient denies any new symptom. Continue to have persistent leakage from EC fistula and right abdominal wall ED. Sleeping well with IV Benadryl Interval History: has no complaint of shortness of breath, chest pain, nausea, vomiting, dysuria, bleeding. TT >65 min, discussion about post op complications, reasons to stay at [facility], short term and halfway prognosis, discharge, ferry terminal supervisor potential complications. > 40 min face to face encounter Prolonged care time 5820-3268 Objective: Vital signs in last 24 hours: Temp: [98.7 ??F (37.1 ??C)-99.3 ??F (37.4 ??C)] 98.7 ??F (37.1 ??C) Heart Rate: [83-90] 83 Resp: [16-18] 16 BP: (107-124)/(54-85) 108/55 Weight: 159 lb 11.2 oz (72.4 kg) Intake/Output last 3 shifts: I/O last 3 completed shifts: In: 2286.3 [I.V.:50; IV Piggyback:350.2] Out: 2400 [Urine:2175; Drains:225] Intake/Output this shift: Review of Systems: See Subjective General Appearance: appears comfortable, Alert, cooperative, no distress, Neck: Supple, symmetrical, trachea midline, no adenopathy; Lungs: Clear to auscultation bilaterally, respirations unlabored Heart: Regular rate and rhythm, S1 and S2 normal, no murmur, rubs or gallop Abdomen: Soft, non-tender, bowel sounds active all four quadrants, no masses, no organomegaly Extremities: Extremities normal, atraumatic, no cyanosis or edema Pulses: DP pulses are 1-2+ bilat. Skin: Large open nonhealing abdominal wound with midline EC fistula with brown drainage. No bleeding. Examined with WOC. There is also small leakage from right abdominal wall ED site. Neurologic: normal and equal strength bilat in upper and lower extremities Medications: Scheduled Meds: ??? atenolol 50 mg Oral DAILY ??? cefTRIAXone (ROCEPHIN) 1 g in 50 mL NS 1 g Intravenous Q24H ??? diphenhydrAMINE 25 mg Intravenous QHS ??? enoxaparin 110 mg Subcutaneous Q24H ??? fat emulsion 250 mL Intravenous Once per day on Sat ??? metroNIDAZOLE 500 mg Intravenous Q8H ??? sodium chloride 10-30 mL Intravenous Q8H FIXED TIMES ??? white petrolatum Topical DAILY Continuous Infusions: ??? dextrose 10% 80 mL/hr (11/16/161817) ??? TPN - Custom formula 80 mL/hr at 11/18/16 2018 PRN Meds:.alteplase, bacitracin, dextrose 10%, dextrose 50 % (D50W) OR glucagon (human recombinant), diphenhydrAMINE, HYDROmorphone, naloxone OR naloxone, ondansetron, polyethylene glycol, sodium chloride, sodium chloride, sodium chloride, nacl 0.9% Lab Results: (I have personally reviewed the results) Recent Results (from the past 24 hour(s)) POCT Glucose Collection Time: 11/18/16 1:24 PM Result Value Ref Range Glucose, POC 143 mg/dL POCT Glucose Collection Time: 11/18/16 6:10 PM Result Value Ref Range Glucose, POC 85 mg/dL POCT Glucose Collection Time: 11/19/16 2:47 AM Result Value Ref Range Glucose, POC 112 mg/dL POCT Glucose Collection Time: 11/19/16 5:57 AM Result Value Ref Range Glucose, POC 112 mg/dL Jenni Burnham MD - 11/18/2016 9:22 AM CDT [facility] Hospitalist Daily Progress Note Assessment/Plan (Active Issues) Patient is a pleasant 71-year-old female with past medical history of lower extremity DVT, small bowel obstruction, incarcerated ventral hernia who had repair of incarcerated ventral hernia on 07/26/2016with multiple postoperative complications including wound dehiscence, abdominal wall abscesses and required further surgeries. Patient was discharged to TCU on 09/27/2016. Patient seen in the clinic by Dr. Vasquez with persistent drainage from old ED site. Patient returned to [facility] with left abdominal wall abscess. CT scan showed multiple areas of air containing abscesses within the soft tissue of ventral abdominal wall. She was started on IV antibiotics and a wound VAC was placed which was later on discontinued due to brownish purulent drainage from the EC fistula. Patient was transferred to [facility] for continued complex nonhealing open abdominal wall wound and EC fistula. She is on TPN and n.p.o. Currently receiving antibiotics for 1 more week. Abscess of postoperative wound of abdominal wall S/P repair of incancerated ventral hernia on 07/27/16: Now with low output enterocutaneous fistula susan complex open nonhealing abdominal wound. Patient is n.p.o. Continue TPN. Goal is to improve nutrition with decrease in drainage from EC fistula. Pain controlled with as needed IV Dilaudid. Non healing midline open abdominal wound with EC fistula: wound is healing well. Small fistula with low output. ?? Abdominal wall abscesses: Continue IV ceftriaxone and Flagyl for 1 more week from date of admission to [facility]. Plan to repeat CT abdomen and pelvis after completion of IV antibiotics ?? Chronic diastolic heart failure: Patient takes Lasix 40 mg daily and atenolol at home. These medications are on hold for now. No signs of volume overload ??Started on atenolol as patient heart rate was above 100. Essential Hypertension: Currently controlled without medications. Restart IV Lasix if blood pressureis elevated ?? Lower extremity DVT: On therapeutic dose of Lovenox. Monitor hemoglobin ?? Severe Malnutrition: prealbumin 17.2. RD following. Patient is currently on TPN ?? Pure hypercholesterolemia: Statins on hold as patient is n.p.o. ?? Adjustment disorder: Continue supportive care and counseling. Consult psychiatry if needed ?? Insomnia: Patient did not tolerate IV Ativan at [facility]. Continue IV Benadryl at bedtime Subjective: Heart rate is better today, below 90. Patient denies any new symptom. Continue to have persistent leakage from EC fistula and right abdominal wall ED. Sleeping well with IV Benadryl Interval History: has no complaint of shortness of breath, chest pain, nausea, vomiting, dysuria, bleeding. Objective: Vital signs in last 24 hours: Temp: [98.1 ??F (36.7 ??C)-99 ??F (37.2 ??C)] 98.4 ??F (36.9 ??C) Heart Rate: [87-111] 87 Resp: [16-20] 16 BP: (118-134)/(56-85) 124/85 Weight: 162 lb 12.8 oz (73.8 kg) Intake/Output last 3 shifts: I/O last 3 completed shifts: In: 1866.6 [I.V.:10; IV Piggyback:323.6] Out: 2074 [Urine:2000; Drains:75] Intake/Output this shift: I/O this shift: In: - Out: 100 [Drains:100] Review of Systems: See Subjective General Appearance: appears comfortable, Alert, cooperative, no distress, Neck: Supple, symmetrical, trachea midline, no adenopathy; Lungs: Clear to auscultation bilaterally, respirations unlabored Heart: Regular rate and rhythm, S1 and S2 normal, no murmur, rubs or gallop Abdomen: Soft, non-tender, bowel sounds active all four quadrants, no masses, no organomegaly Extremities: Extremities normal, atraumatic, no cyanosis or edema Pulses: DP pulses are 1-2+ bilat. Skin: Large open nonhealing abdominal wound with midline EC fistula with brown drainage. No bleeding. Examined with WOC. There is also small leakage from right abdominal wall ED site. Neurologic: normal and equal strength bilat in upper and lower extremities Medications: Scheduled Meds: ??? atenolol 50 mg Oral DAILY ??? cefTRIAXone (ROCEPHIN) 1 g in 50 mL NS 1 g Intravenous Q24H ??? diphenhydrAMINE 25 mg Intravenous QHS ??? enoxaparin 110 mg Subcutaneous Q24H ??? fat emulsion 250 mL Intravenous Once per day on Sat ??? metroNIDAZOLE 500 mg Intravenous Q8H ??? sodium chloride 10-30 mL Intravenous Q8H FIXED TIMES ??? white petrolatum Topical DAILY Continuous Infusions: ??? dextrose 10% 80 mL/hr (11/16/161817) ??? TPN - Custom formula ??? TPN - Custom formula PRN Meds:.alteplase, bacitracin, dextrose 10%, dextrose 50 % (D50W) OR glucagon (human recombinant), diphenhydrAMINE, HYDROmorphone, naloxone OR naloxone, ondansetron, sodium chloride, sodium chloride, sodium chloride, nacl 0.9% Lab Results: (I have personally reviewed the results) Recent Results (from the past 24 hour(s)) POCT Glucose Collection Time: 11/17/16 11:52 AM Result Value Ref Range Glucose, POC 145 mg/dL POCT Glucose Collection Time: 11/17/16 5:54 PM Result Value Ref Range Glucose, POC 134 mg/dL POCT Glucose Collection Time: 11/17/16 11:48 PM Result Value Ref Range Glucose, POC 128 mg/dL POCT Glucose Collection Time: 11/18/16 5:49 AM Result Value Ref Range Glucose, POC 128 mg/dL Razia Keene OTR - 11/17/2016 1:06 PM CDT 11/17/16 0835 Visit Specifics Eval Type Inital eval Bed/Tabs/Pad Alarm Applied Not applicable General Onset date 11/03/16 Additional Pertinent History infection following procedure. PMH: DVT LE, cataract, HTN, incarceratedventral hernia repair w/ mesh- removed d/t infection Chart Reviewed Yes PT/OT Patient/Caregiver Stated Goals go home Family/Caregiver Present No Home Living Type of Home House Home Layout Multi-level Bathroom Shower/Tub Walk-in shower Prior Status Independent With All ADL's/IADL's Lives With Alone ADL Grooming All grooming All Grooming SBA;Modified independent (Device);Sitting;Fatigue Upper Body Dressing overnight stocker;Bra Branch Operations Coordinator SBA;CGA;Sitting;Fatigue Bra SBA;CGA;Fatigue;Sitting Lower Body Dressing Pants;Shoes Pants CGA;SBA;Sitting;With product promoter sales person;Decreased flexability Shoes CGA;SBA;Sitting;Decreased flexability ADL Comments assist with UB dressing d/t IV lines Activity Tolerance Endurance Fair Balance Sitting Balance Independent Standing Balance Independent (w/ walker) Bed Mobility Bed Mobility Rolling Rolling Moderately independent (Device) Supine to Sit Modified Independent Sit to Supine Modified Independent Bed mobility comments moves slowly to reposition d/t abd discomfort/pouch Functional Transfers Functional Transfers Chair Transfers;Bed Transfers Bed Transfers Modified independent Chair Transfers Modified independent Comments wheeled walker Cognition Overall Cognitive Status Further cognitive assessment recommended Arousal/Alertness Alert Attention Span 9-15 min Orientation Level Oriented to person;Oriented to place;Oriented to situation Following Commands Follows all commands and directions Safety Judgment Good awareness of safety precautions Fall Risk Low Vision/Perception Vision/Perception Intact RUE Assessment RUE Assessment (tone/AROM WFL, MMT 3-4/5) LUE Assessment LUE Assessment (tone/AROM WFL, MMT 3-4/5) Hand Function Gross Grasp Functional Gross Motor Coordination Functional Fine Motor Coordination Impaired (weak) Sensation Light Touch No apparent deficits Skin Integrity Edema None (BUE) Assessment Assessment Decreased UE strength;Decreased endurance Prognosis Good Treatment/Interventions ADL training;Functional transfer training;Cognitive training (activity tolerance building) OT Frequency 5-6x/wk;Daily (x1-2 weeks) Recommendations OT Discharge Recommendation TCU;Home with family support/assistance Treatment Suggestions for Next Session Precautions: wound cares Tx ideas: activity tolerance building, IADLs, adv trf, BUE strengthening, further cog assess OT Summary Pt seen bedside ofr OT cassandra. Good participation despite being nervous/anxious for wound change. Demo basic trf and bed mobility well. Decreased BUE strength, LB dressing, and activity tolerance.Would be approp for 1:1 OT Razia Keene, ADORE/ESTER 11/17/16 Jenni Burnham MD - 11/17/2016 10:39 AM CDT [facility] Hospitalist Daily Progress Note Assessment/Plan (Active Issues) Abscess of postoperative wound of abdominal wall S/P repair of incancerated ventral hernia on 07/27/16: Now with low output enterocutaneous fistula susan complex open nonhealing abdominal wound. Patient is n.p.o. Continue TPN. Goal is to improve nutrition with decrease in drainage from EC fistula. Pain controlled with as needed IV Dilaudid. Non healing midline open abdominal wound with EC fistula: wound is healing well. Small fistula with low output. ?? Abdominal wall abscesses: Continue IV ceftriaxone and Flagyl for 1 more week from date of admission to [facility]. Plan to repeat CT abdomen and pelvis after completion of IV antibiotics ?? Chronic diastolic heart failure: Patient takes Lasix 40 mg daily and atenolol at home. These medications are on hold for now. No signs of volume overload ??start iv lopressor as heart rate is trending up. Will also help with anxiety. Essential Hypertension: Currently controlled without medications. Restart IV Lasix if blood pressureis elevated ?? Lower extremity DVT: On therapeutic dose of Lovenox. Monitor hemoglobin ?? Severe Malnutrition: prealbumin 17.2. RD following. Patient is currently on TPN ?? Pure hypercholesterolemia: Statins on hold as patient is n.p.o. ?? Adjustment disorder: Continue supportive care and counseling. Consult psychiatry if needed ?? Insomnia: Patient did not tolerate IV Ativan at [facility]. slept better with IV Benadryl Subjective: Pt is anxious about the whole situation. Wants to home as soon as possible. No new symptom. Pain controlled with meds. Interval History: has no complaint of shortness of breath, chest pain, nausea, vomiting, dysuria, bleeding. Objective: Vital signs in last 24 hours: Temp: [97.6 ??F (36.4 ??C)-99 ??F (37.2 ??C)] 99 ??F (37.2 ??C) Heart Rate: [96-116] 101 Resp: [16-20] 20 BP: (122-134)/(58-70) 129/65 Weight: 162 lb 12.8 oz (73.8 kg) Intake/Output last 3 shifts: I/O last 3 completed shifts: In: 1254.1 [I.V.:100; IV Piggyback:326.1] Out: 2250 [Urine:2200; Drains:50] Intake/Output this shift: I/O this shift: In: - Out: 50 [Drains:50] Review of Systems: See Subjective General Appearance: appears comfortable, Alert, cooperative, no distress, Neck: Supple, symmetrical, trachea midline, no adenopathy; Lungs: Clear to auscultation bilaterally, respirations unlabored Heart: Regular rate and rhythm, S1 and S2 normal, no murmur, rubs or gallop Abdomen: Soft, non-tender, bowel sounds active all four quadrants, no masses, no organomegaly Extremities: Extremities normal, atraumatic, no cyanosis or edema Pulses: DP pulses are 1-2+ bilat. Skin: Large open nonhealing abdominal wound with midline EC fistula with brown drainage. No bleeding. Examined with WOC Neurologic: normal and equal strength bilat in upper and lower extremities Medications: Scheduled Meds: ??? cefTRIAXone (ROCEPHIN) 1 g in 50 mL NS 1 g Intravenous Q24H ??? diphenhydrAMINE 25 mg Intravenous QHS ??? enoxaparin 110 mg Subcutaneous Q24H ??? fat emulsion 250 mL Intravenous Once per day on Sat ??? metroNIDAZOLE 500 mg Intravenous Q8H ??? sodium chloride 10-30 mL Intravenous Q8H FIXED TIMES Continuous Infusions: ??? dextrose 10% 80 mL/hr (11/16/161817) ??? TPN - Custom formula 80 mL/hr at 11/17/16 0051 ??? TPN - Custom formula PRN Meds:.alteplase, bacitracin, dextrose 10%, dextrose 50 % (D50W) OR glucagon (human recombinant), diphenhydrAMINE, HYDROmorphone, naloxone OR naloxone, ondansetron, sodium chloride, sodium chloride, sodium chloride, nacl 0.9% Lab Results: (I have personally reviewed the results) Recent Results (from the past 24 hour(s)) POCT Glucose Collection Time: 11/16/16 11:59 AM Result Value Ref Range Glucose, POC 102 mg/dL POCT Glucose Collection Time: 11/16/16 5:55 PM Result Value Ref Range Glucose, POC 103 mg/dL POCT Glucose Collection Time: 11/17/16 12:29 AM Result Value Ref Range Glucose, POC 125 mg/dL POCT Glucose Collection Time: 11/17/16 5:59 AM Result Value Ref Range Glucose, POC >500 mg/dL POCT Glucose Collection Time: 11/17/16 6:09 AM Result Value Ref Range Glucose, POC 105 mg/dL Protime-INR Collection Time: 11/17/16 6:12 AM Result Value Ref Range INR 1.10 0.90 - 1.10 Magnesium Collection Time: 11/17/16 6:12 AM Result Value Ref Range Magnesium 1.6 (L) 1.8 - 2.6 mg/dL Phosphorus Collection Time: 11/17/16 6:12 AM Result Value Ref Range Phosphorus 4.2 2.5 - 4.5 mg/dL Prealbumin Collection Time: 11/17/16 6:12 AM Result Value Ref Range Prealbumin 17.2 (L) 19.0 - 38.0 mg/dL Comprehensive metabolic panel Collection Time: 11/17/16 6:12 AM Result Value Ref Range Sodium 138 136 - 145 mmol/L Potassium 3.8 3.5 - 5.0 mmol/L Chloride 105 98 - 107 mmol/L CO2 27 22 - 31 mmol/L Anion Gap, Calculation 6 5 - 18 mmol/L Glucose 98 70 - 125 mg/dL BUN 11 8 - 28 mg/dL Creatinine 0.52 (L) 0.60 - 1.10 mg/dL GFR MDRD Af Amer >60 >60 mL/min/1.73m2 GFR MDRD Non Af Amer >60 >60 mL/min/1.73m2 Bilirubin, Total 0.2 0.0 - 1.0 mg/dL Calcium 8.4 (L) 8.5 - 10.5 mg/dL Protein, Total 6.0 6.0 - 8.0 g/dL Albumin 2.4 (L) 3.5 - 5.0 g/dL Alkaline Phosphatase 52 45 - 120 U/L AST 16 0 - 40 U/L ALT 8 0 - 45 U/L Hyperal Lytes Collection Time: 11/17/16 6:12 AM Result Value Ref Range BUN 11 8 - 28 mg/dL Calcium 8.4 (L) 8.5 - 10.5 mg/dL Chloride 105 98 - 107 mmol/L CO2 27 22 - 31 mmol/L Creatinine 0.52 (L) 0.60 - 1.10 mg/dL GFR MDRD Af Amer >60 >60 mL/min/1.73m2 GFR MDRD Non Af Amer >60 >60 mL/min/1.73m2 Glucose 98 70 - 125 mg/dL Potassium 3.8 3.5 - 5.0 mmol/L Magnesium 1.6 (L) 1.8 - 2.6 mg/dL Sodium 138 136 - 145 mmol/L Phosphorus 4.2 2.5 - 4.5 mg/dL HM1 (CBC with Diff) Collection Time: 11/17/16 6:12 AM Result Value Ref Range WBC 4.4 4.0 - 11.0 thou/uL RBC 3.48 (L) 3.80 - 5.40 mill/uL Hemoglobin 9.5 (L) 12.0 - 16.0 g/dL Hematocrit 29.6 (L) 35.0 - 47.0 % MCV 85 80 - 100 fL MCH 27.3 27.0 - 34.0 pg MCHC 32.1 32.0 - 36.0 g/dL RDW 12.5 11.0 - 14.5 % Platelets 316 140 - 440 thou/uL MPV 9.2 8.5 - 12.5 fL Manual Differential Collection Time: 11/17/16 6:12 AM Result Value Ref Range Total Neutrophils % 60 50 - 70 % Lymphocytes % 26 20 - 40 % Monocytes % 11 (H) 2 - 10 % Eosinophils % 3 0 - 6 % Basophils % 0 0 - 2 % Total Neutrophils Absolute 2.6 2.0 - 7.7 thou/ul Lymphocytes Absolute 1.1 0.8 - 4.4 thou/uL Monocytes Absolute 0.5 0.0 - 0.9 thou/uL Eosinophils Absolute 0.1 0.0 - 0.4 thou/uL Basophils Absolute 0.0 0.0 - 0.2 thou/uL Reactive Lymphocytes 1+ (!) Negative Platelet Estimate Normal Normal Isai Tabares, PT - 11/17/2016 9:39 AM CDT Physical Therapy 11/17/16 0930 Visit Specifics Eval Type Initial eval Bed/Tabs/Pad Alarm Applied Not applicable General Onset date 11/03/16 Additional Pertinent History Racquel Jones is a 71 y.o. old female. History is provided by reviewing the records and speaking with transferring provider. Chart Reviewed Yes PT/OT Patient/Caregiver Stated Goals go home Family/Caregiver Present No Treatment Time Gait Training 13 Neuromuscular Re-education 10 Home Living Type of Home House Home Layout Multi-level Mobility Equipment Walker-front wheeled Prior Status Prior Device Use None of the above Indoor Mobility Independent Lives With Alone Device Used Yes RLE Assessment RLE Assessment (ROM WFL, MMT 4+/5) LLE Assessment LLE Assessment (ROM WFL, MMT 4+/5) Sensory Sensory Impairment Light touch Light Touch No apparent deficits Bed Mobility Supine to Sit Modified independent (Device) Sit to Supine Modified independent (Device) Transfer Sit To Stand Modified independent (Device) Stand To Sit Modified independent (Device) Ambulation Distance (ft) 350 Assistance Modified independent Assistive Device Pushing IV pole Pattern Decreased step length Endurance Deficit Endurance Deficit Yes Wheelchair Activities Wheelchair Yes Wheelchair Type Standard Wheelchair Cushion Standard Fall Risk Fall Risk Low Special Tests Special Tests Performed Tinetti Tinetti 25/28 (Lost points for ambulating with AD (IV pole)) Assistive Device Other (comment) (IV pole) Plan Treatment/Interventions Functional transfer training;Gait/stair training;Home exercise program;Neuromuscular re-ed;Strengthening/ROM PT Frequency 4-6x/wk Assessment Prognosis Good Problem List Decreased strength;Decreased endurance;Impaired balance;Decreased mobility Barriers to Discharge Decreased caregiver support Recommendation PT Discharge Recommendation Home PT;Home with assist;Home alone PT Equipment Recommendation Transfer / gait belt;Rolling walker / FWW Treatment Suggestions for Next Session endurance activites, stairs, balance STGS = LTGS to be met by: 11/30/16 In order to progress towards home, 1. Patient will perform car transfer Mod I 2. Patient will ambulate 1000ft with least restrictive AD Mod I. 3. Patient will ascend/descend 10 steps with one handrail and SBA assistance Goals were initiated on 11/17/2016 by Isai Tabares, PT. Aly Dawson, [facility] - 11/17/2016 8:28 AM CDT Pharmacy Note: Total Parenteral Nutrition (TPN) Management Pharmacist consulted to dose TPN for Racquel Jones, a 71 y[address] female by Dr[address] Burnham. Subjective: Indication for TPN therapy: enterocutaneous fistula Inadequate nutrition existing for > 7 days. Enteral nutrition contraindicated due to: small bowel obstruction. Pertinent diseases and other special considerations None Social History Substance Use Topics ??? Smoking status: Never Smoker ??? Smokeless tobacco: Never Used ??? Alcohol use Yes Comment: once a month when out for dinner Objective: Height: 5' 1 (1.549 m) Weight: 73.4 kg (161 lb 12.8 oz) Body mass index is 30.57 kg/(m^2). Patient Vitals for the past 96 hrs: Weight 11/16/16 1244 73.4 kg (161 lb 12.8 oz) 11/16/16 1158 73.4 kg (161 lb 12.8 oz) Labs: Last 3 days: Recent Labs 11/17/16 0612 NA 138 138 K 3.8 3.8 CL 105 105 CO2 27 27 BUN 11 11 CREATININE 0.52* 0.52* GLU 98 98 CALCIUM 8.4* 8.4* MG 1.6* 1.6* PHOS 4.2 4.2 PROT 6.0 ALBUMIN 2.4* PREALBUMIN 17.2* HGB 9.5* HCT 29.6* PLT 316 BILITOT 0.2 AST 16 ALT 8 ALKPHOS 52 Fingerstick Blood Glucose (past 48 hours): Recent Labs 11/16/16 1159 11/16/16 1755 11/17/16 0029 11/17/16 0559 11/17/16 0609 POCGLUFGR 102 103 125 >500 105 Intake/Output (last 24 hours): I/O last 3 completed shifts: In: 1254.1 [I.V.:100; IV Piggyback:326.1] Out: 2250 [Urine:2200; Drains:50] Estimated CrCl: Estimated Creatinine Clearance: 59.1 mL/min (by C-G formula based on Cr of 0.52). Assessment: Continue patient on TPN therapy as a continuous central therapy. Given the patient's current condition/oral intake, PN is still indicated. Lab results reviewed: 11/17 Plan: 1. Rate of TPN: 80 mL/hr. Maintenance IV fluid rate will be adjusted appropriately to meet the totalmaximum IV fluids rate as ordered by provider. 2. Formula: ?? Amino Acids 5.5 % ?? Dextrose 15 % ?? Sodium 35 mEq/L ?? Potassium 30 mEq/L ?? Magnesium 8 mEq/L ?? Calcium 4.5 mEq/L ?? Phosphorus 15 mMol/L ?? Chloride: Acetate Ratio 1:2 ?? Standard Multivitamins w/Vitamin K ?? Trace Elements 3. Fat Emulsion: 20%, 250 mL IV 5 times weekly. 4. Check hyperal lytes labs twice weekly and as needed. 5. Pharmacist will continue to follow the patient's lab results, clinical status and blood glucose results and make adjustments as appropriate. Thank you for the consult. Aly Dawson, PharmD 11/17/2016 8:28 AM Historical Provider - 11/17/2016 7:57 AM CDT Clinical Nutrition Therapy Assessment Note Reason for Assessment: Racquel Jones is a 71 y.o. female assessed by the registered Dietitian for consult, nutrition support and wound. Pt seen on admit. Dtr present. Discussed nutrition POC for NPO/TPN & goals for wound healing/fistula closure & minimize further weight loss. Nutrition History: Information obtained from patient, family/caregiver, chart and transfer facility. Reviewed [facility] RD note. No malnutrition identified. Patients diet prior to admission has been TPN x 1 week (D15+AA5 @ 80 ml/hr; IV lipids 250 ml 20% 5x weekly). Variable/poor po intake since 07/2016. Regular diet with good intake prior to this. Patient has the following cultural/uatsdin food needs or preferences: nnoe Patient has the following food allergies or intolerances: NKFA Current Nutrition Prescription: Diet: NPO TPN: Dex 15% + AA's 5.0% at 80 ml/hr No IV lipids Current Nutrition Intake: Parenteral nutrition access is a central line. The current nutriton order will provide, 1363 kcals, 96 grams protein, 288 grams carbohydrate, 0 grams fat daily average, and 1920 mls fluid daily. The percentage of calories from carbohydrate is 2.7 mg/kg/minute and the lipid infusion rate is 0 g/kg. Will need IV lipids for EFA's & energy needs. May benefit from slightly higher protein level to support healing. Anthropometrics: Height: 5' 1 (154.9 cm) Admission weight: 162 lb Weight: 161 lb 12.8 oz (73.4 kg) BMI (Calculated): 30.6 BMI indication: 30-34.9 obesity (class 1) [place] body weight 105 lb +/- 10% Usual body weight 180 lb prior to 07/2016. Weight History: 07/25/16, 180 lb 10/31/16, 161 lb Significant wt loss of 18 lb (10%) past 3.5 months. Physical Findings: The patient has the following physical signs which could indicate malnutrition: Nutrition focused physical exam deferred GI Status/Output: EC fistula. Drain: 50 ml since admit Loose/watery BM x 1 since admit N/V after Dilaudid per RN Bowel Sounds present per nsg Skin/Wound: Chavo score Chavo Scale Score: 18 Will follow WOC. Medications: Medications reviewed. MVI & trace elements in TPN Labs: Lab Results Component Value Date/Time PREALBUMIN 17.2 (L) 11/17/2016 06:12 AM ALBUMIN 2.4 (L) 11/17/2016 06:12 AM NA 138 11/17/2016 06:12 AM NA 138 11/17/2016 06:12 AM K 3.8 11/17/2016 06:12 AM K 3.8 11/17/2016 06:12 AM BUN 11 11/17/2016 06:12 AM BUN 11 11/17/2016 06:12 AM CREATININE 0.52 (L) 11/17/2016 06:12 AM CREATININE 0.52 (L) 11/17/2016 06:12 AM GLU 98 11/17/2016 06:12 AM GLU 98 11/17/2016 06:12 AM 11/11/16 trig 135 BG 102-125 (0559 >500 presumed error) Assessed Nutritional Needs: Assessment weight is 54 kg, with a weight source of adjusted Estimated Energy Needs: 5331-5914 kcals daily per 30-35 kcal/kg Estimated Protein Needs: 81-108 g daily, 1.5-2 g/kg. Estimated Fluid Needs: 8395-5940 mls daily, 30-35 mls/kg Malnutrition: Patient meets diagnostic criteria for severe protein calorie malnutrition in the context of acute illness and chronic illness as evidenced by unintentional weight loss and poor nutrient intake Nutrition Risk Level: high risk Nutrition dx: Increased nutrient needs r/t wound healing & malnutrition evidenced by EC fistula, wt loss, wound. Altered GI function r/t EC fistula evidenced by need for NPO/TPN. Goal: Meet nutrition needs via TPN. Minimize further wt loss Wound/fistula healing & transition back to po diet. Intervention: Increase AA's to 5.5% Add IV lipids, 250 ml 20% 5x weekly. TPN/lipids to provide 1720 kcal, 288 gm CHO, 105 gm pro, 35.7 gm fat (daily avg), 1920 ml Monitoring: TPN (macronutrients; pharmacy to monitor micronutrients), wts, labs, GI function, wound progress perWOC See Care Plan for Problems, Goals, and Interventions. documented in this encounter H&P Notes Jenni Burnham MD - 11/16/2016 3:02 PM CDT [facility] Hospitalist Admission History and Physical Racquel Jones, 1945, [facility] There are no admission diagnoses documented for this encounter. PCP: Eloise Malave MD, None Transferring facility [facility] HPI: Racquel Jones is a 71 y.o. old female. History is provided by reviewing the records and speaking with transferring provider. Malaika Jones has history of DVT of lower extremity, small bowel obstruction, incarcerated ventral hernia, elevated alkaline phosphatase DEVELOPED incarcerated ventral hernia, had repair with a mesh by Dr. Aly Fontanez on 07/26/2016 complicated by postoperative wound infection with dehiscence and abscess on 08/06/2016, infected mesh with abdominal wall abscess/draining sinus status post laparotomy and removal of infected mesh, repair of recurrent incisional hernia with non synthetic mesh, debridement of abdominal wall on 09/18/2016 and discharged to TCU on 09/27/2016. Pt needed multiple admissions postprocedure and also received IV antibiotics. Patient continued to have persistent drainage from old right ED site and was seen in clinic on 11/01/[address] Vasquez. Patient was sent home. edge roller suspected that patient had abscess on left side of the abdomen. He was sent to the hospital and underwent a CT of the abdomen and pelvis which showed increased size of air-containing abscesses within the soft tissue of the ventral abdominal wall with an abscess and m ultiple other abdominal findings. She was seen by surgery and ID and started on IV antibiotics. Dr. Fontana from surgery, Opened small central opening that led to a larger cavity. Purulent drainage from midline wound and drain site. Phasix mesh is palpable at base of wound. Tracking of cavity. Reasonably solid upper and lower midline granulation tissue. It was then packed. On a wound VAC wasplaced. On wound VAC was discontinued due to copious drainage brownish purulent fluid likely from EC fistula Another CT scan of abdomen on 11/10 showed enterocutaneous fistula with high output. Patient is made n.p.o. and receiving TPN. She will complete course of IV antibiotics, ceftriaxone and Flagyl after 1 week. Patient was transferred to [facility] for continued complex medical and wound care management Review of Systems: A 12 point ROS performed and negative for HENRY, LH, SOB, nausea, vomiting, numbness, tingling sensations. Rest of ROS negative PAST MEDICAL HISTORY: GERD hypokalemia DVT of leg Chronic diastolic heart failure... Pt take atenolol and lasix at home. Hypercholesteremia PAST SURGICAL HISTORY: ??? CATARACT REMOVAL left lens ??? EXPLORATORY LAPAROTOMY REPAIR INCARCERATED VENTRAL HERNIA WITH MESH 07/26/2016 ??? EXPLORATORY LAPAROTOMY REPAIR RECURENT INCARCERATED VENTRAL HERNIA WITH MESH AND COMPONENT SEPERATION 07/26/2016 ??? EXPLORATORY LAPAROTOMY, REMOVAL OF INFECTED MESH, ABDOMINOPLASTY 09/19/2016 ??? HERNIA REPAIR 1988 ??? HERNIA REPAIR 1995, 2012 ??? hx toe surgery 2010 right great toe / hardware ??? KNEE ARTHROSCOPY 2000 right ??? LEFT CARPAL TUNNEL DECOMPRESSION 07/23/12 ??? Right Carpal tunnel decompression 11/12/11 ??? VITRECTOMY 2006 left eye SOCIAL HISTORY: ??? Marital status: ??? Smoking status: Never Smoker ??? Smokeless tobacco: Never Used ??? Alcohol use Yes Comment: 1 drink monthly ??? Drug use: No -, 3 children. FAMILY HISTORY: ??? Heart Disease Father ??? Cancer Mother stomach cancer, and htn, cad, hld ??? Diabetes- -father and brother ??? Cancer-breast No Family History Allergies Allergies Allergen Reactions ??? Amoxicillin ??? Sulfa (Sulfonamide Antibiotics) Scheduled Meds: ??? cefTRIAXone (ROCEPHIN) 1 g in 50 mL NS 1 g Intravenous Q24H ??? [START ON 11/17/2016] enoxaparin 110 mg Subcutaneous Q24H ??? metroNIDAZOLE 500 mg Intravenous Q8H Continuous Infusions: ??? TPN Clinimix PRN Meds:.alteplase, dextrose 50 % (D50W) OR glucagon (human recombinant), diphenhydrAMINE, HYDROmorphone, naloxone OR naloxone, ondansetron, nacl 0.9% Physical Exam: Temp: [98.4 ??F (36.9 ??C)] 98.4 ??F (36.9 ??C) Heart Rate: [109] 109 Resp: [20] 20 BP: (132)/(65) 132/65 General Appearance: appears comfortable, Alert, cooperative, no distress, Head: Normocephalic, without obvious abnormality, atraumatic Eyes: PERRL, conjunctiva/corneas clear, EOM's intact, both eyes Nose: Nares normal, no drainage Throat: Lips, mucosa, and tongue normal; teeth and gums normal Neck: Supple, symmetrical, trachea midline, no adenopathy; Lungs: Clear to auscultation bilaterally, respirations unlabored Chest Wall: No tenderness or deformity Heart: Regular rate and rhythm, S1 and S2 normal, no murmur, rubs or gallop Abdomen: Soft, non-tender, bowel sounds active all four quadrants, no masses, no organomegaly Extremities: Extremities normal, atraumatic, no cyanosis or edema Pulses: DP pulses are 1-2+ bilat. Skin: Large open nonhealing abdominal wound with ostomy pouch in place over midline EC fistula with brown drainage. 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 Patient is n.p.o. Continue TPN. Goal is to improve nutrition with decrease in drainage from EC fistula. Pain controlled with as needed IV Dilaudid. Abdominal wall abscesses: Continue IV ceftriaxone and Flagyl for 1 more week from date of admission to [place]. Plan to repeat CT abdomen and pelvis after completion of IV antibiotics Chronic diastolic heart failure: Patient takes Lasix 40 mg daily and atenolol at home. These medications are on hold for now. No signs of volume overload Essential Hypertension: Currently controlled without medications. Restart IV Lasix if blood pressureis elevated Lower extremity DVT: On therapeutic dose of Lovenox. Monitor hemoglobin Malnutrition: Check prealbumin. Consult RD. Patient is currently on TPN Pure hypercholesterolemia: Statins on hold as patient is n.p.o. Adjustment disorder: Continue supportive care and counseling. Consult psychiatry if needed Insomnia: Patient did not tolerate IV Ativan at [facility]. Will try IV Benadryl Code status: Full Code DVT Prophylaxis: Lovenox Lines: PICC line GI Prophylaxis: Protonix Diet: TPN CUSTOM FORMULA HE Diet NPO TPN - Clinimix E 5/15 Drains/tubes: ostomy bag over abdominal wall wound Weight bearing restrictions: None Total time spent was 75 minutes in which greater than 50% of the time was spent on face to face timewith the patient, patient care coordination, review of chart and physician to physician phone call. CT ABDOMEN PELVIS W 11/15/2016 11:49 AM ? INDICATION: Recurrent incarcerated ventral abdominal wall hernia repair with mesh, enterocutaneous fistula, follow-up. TECHNIQUE: CT abdomen and pelvis. Multiplanar reformation images (MPR). Dose reduction techniques were used. IV CONTRAST: Omnipaque 350 80 mL. COMPARISON: 11/10/2016. FINDINGS: LUNG BASES: Negative. ABDOMEN: The liver, gallbladder, spleen, pancreas, adrenals, and kidneys are all negative. No hydronephrosis. Atheromatous changes in a normal caliber abdominal aorta. PELVIS: The urinary bladder is negative. Scattered colonic diverticulosis without diverticulitis. Normal small bowel and terminal ileum. Normal appendix. No peritoneal fluid or air. MUSCULOSKELETAL: Ventral abdominal wall hernia repair and an enterocutaneous fistula, likely from the mid transverse colon, communicating with a subcutaneous abscess and a subsequent fistula communication near the umbilicus. The subcutaneous collection has increased in size since 11/10/2016. It measures 5.4 x 1.7 cm in axial dimension. There is a second smaller enterocutaneous fistula extending within the subcutaneous fat to the right of the umbilicus. CONCLUSION: 1.?Slight interval increase in subcutaneous abscess between the skin and the abdominal wall mesh.There is a large central wound dehiscence or fistula extending to the umbilicus and a second smallerfistula extending to the skin just to the right of the umbilicus. 2.?No air or fluid within the peritoneal cavity. 3.?Scattered colonic diverticulosis without diverticulitis. documented in this encounter Consult Notes Historical Provider - 11/21/2016 11:20 AM CDT Initial Inpatient Psychology Consultation (Brief) Date of Service: 11/21/2016 Duration: 40 minutes (11:20 AM - 12:00 PM) Name: Racquel Jones : 1945 REASON FOR REFERRAL: Ms. Jones is a 71 y.o., , , female who is being seen for an evaluation of cognitive, emotional, and behavioral functioning at the request of Dr. Burnham, hospitalist, and Dr. Camacho, psychiatrist at [facility]. The patient was admitted to [facility] from [facility] on 11/16/2016. Collateral information was obtained from a brief review of the medical chart and from patient's daughter, Jluis, who remained present for duration of session with patient's permission. Patient was informed of the role ofpsychology services in patient's care, the foreseeable risks and benefits, and the limits of confidentiality, and the patient agreed to proceed. HISTORY OF PRESENTING PROBLEM: According to the medical record, patient has a history of lower extremity DVT, small bowel obstruction, and incarcerated ventral hernia. She had a mesh repair on 07/26/16 and her postop course was complicated by wound infection and dehiscence as well as abscess formation, requiring further surgery and removal of mesh and debridements. Patient was stabilized and discharged to a [facility] on 09/27/16, but had multiple hospital readmissions due to wound problems. She continued to have persistent drainage from old right ED site and was seen in clinic on 10/02/16 and sent home, but remain concerned for abscess of left abdomen. She underwent CT of abdomen and pelvis, was seen by surgery and ID, and was started on IV antibiotics. On 11/05/16 a wound VAC was placed, but was discontinued on 11/09/16 due to copious drainage brownish purulent fluid likely from EC fistula. Another CT scan of the abdomen on 11/10/16??showed enterocutaneous fistula with high output. ??Patient was made NPO and started on TPN. Patient was transferred to [facility] for continued complex medical and wound care management. Psychology and psychiatry were consulted due to concerns for high anxiety, adjustment concerns, and situational depression. Upon current interview, patient was seated at bedside chair, was casually dressed, and neatly groomed. She was visiting with her daughter, Jluis, and grandson. She described her mood as frustrated and maybe a little depressed and affect appeared disgruntled and irritable. She was initially guarded and hesitant regarding this customs entry writer's presence, asking why and how psychology was involved in her care. Fence Manufacture Supervisor provided education regarding psychology's role in her care. Patient stated that she has been frustrated regarding medical care and being in and out of the hospital since July. She expressed frustrations with various cares, wait times for assistance, and the fact that her problems and concerns were not adequately addressed until more recently with appropriate CT scan. She indicated that sheis potentially considering legal action for previous care providers not using the right tests for diagnostic and treatment purposes. Fence Manufacture Supervisor provided validation and support for frustrations, while also provided direct feedback regarding patient's demeanor (i.e., her approach and interpersonal interaction with this customs entry writer). Patient noted that prior to these events, she was quite independent and active with various activities including bowling league, attending concerts, attending ballgames, and participating in social activities with friends/latter day members/family. She also noted a number of stressorsat home related to her youngest son who is currently living with her who suffers from alcoholism. Fence Manufacture Supervisor provided education regarding the notion of alcoholism as a family disease and offered to discussadditional resources for family support. However, patient was somewhat dismissive of this, noting that her current problems including medical comorbidities are her primary concern at this point. Writerfacilitated discussion regarding coping skills, and patient noted that getting outside as well as having family visitors has been helpful in managing mood disturbance. She asked customs entry writer about additionalcoping skills and customs entry writer provided education regarding strategies such as diaphragmatic breathing, mental imagery, distraction, journaling, etc. Fence Manufacture Supervisor also discussed the notion of possible antidepressant trial, as it appears that she has declined this in recent discussion with psychiatrist. However, customs entry writer provided additional education and patient appeared more receptive to this idea. She was encouraged to discuss this with the psychiatrist and his daily rounds. Patient was amenable to continued weekly support during current hospitalization, although noted that her primary goal is to discharge homeas quickly as possible. Her demeanor appeared to shift slightly to be less anxious/irritable over the course of our session, and she expressed gratitude for this customs entry writer support and current visit. Please see H&P dated 11/16/16, social work assessment dated 11/19/16 and psychiatry consult note dated 11/20/16 for additional information regarding medical, psychosocial, and psychiatric history. No non-personal contextual factors are reported. No standardized assessment tools were administered; patient declined. PSYCHIATRIC HISTORY: Patient denied a premorbid history of psychiatric concerns or treatment. However, she later assertedprobably have some depression related to her son's mental health and addiction concerns. She has never received treatment for this, although did attend one [facility] group. She was relatively dismissive regarding receiving additional information about alcoholism and family/interpersonal dynamics, although this may continue to be explored over time. Patient has never been prescribed any psychotropic medications, although is taking Benadryl currently to aid in sleep. She was provided with education regarding a possible antidepressant trial and will consider this and discuss further with the psychiatrist while at [facility]. Patient denied a history of inpatient psychiatric hospitalizations, suicide attempts, or suicidal ideation. SUBSTANCE USE HISTORY: Patient's substance use history is on file and she reports that she is a lifetime non-smoker and does not use illicit drugs. She drinks alcohol approximately once monthly but denied concerns or problems related to alcohol use. She denied a history of chemical dependency treatment or perceived need for treatment. MEDICAL HISTORY: PAST MEDICAL HISTORY: GERD hypokalemia DVT of leg Chronic diastolic heart failure... Pt take atenolol and lasix at home. Hypercholesteremia ?? PAST SURGICAL HISTORY: ??? CATARACT REMOVAL left lens ??? EXPLORATORY LAPAROTOMY REPAIR INCARCERATED VENTRAL HERNIA WITH MESH 07/26/2016 ??? EXPLORATORY LAPAROTOMY REPAIR RECURENT INCARCERATED VENTRAL HERNIA WITH MESH AND COMPONENT SEPERATION 07/26/2016 ??? EXPLORATORY LAPAROTOMY, REMOVAL OF INFECTED MESH, ABDOMINOPLASTY 09/19/2016 ??? HERNIA REPAIR 1988 ??? HERNIA REPAIR 1995, 2012 ??? hx toe surgery 2010 right great toe / hardware ??? KNEE ARTHROSCOPY 2000 right ??? LEFT CARPAL TUNNEL DECOMPRESSION 07/23/12 ??? Right Carpal tunnel decompression 11/12/11 ??? VITRECTOMY 2006 left eye ?? The patient does not report cultural factors impacting pursuit of care. [facility] [facility]. Patient demonstrates adequate awareness and understanding of current medical and mental health conditions. Current Medications Include: ??? atenolol 50 mg Oral DAILY ??? cefTRIAXone (ROCEPHIN) 1 g in 50 mL NS 1 g Intravenous Q24H ??? diphenhydrAMINE 25 mg Intravenous QHS ??? enoxaparin 110 mg Subcutaneous Q24H ??? fat emulsion 250 mL Intravenous Once per day on Sat ??? furosemide 40 mg Oral DAILY ??? metroNIDAZOLE 500 mg Intravenous Q8H ??? sodium chloride 10-30 mL Intravenous Q8H FIXED TIMES FAMILY MEDICAL/PSYCHIATRIC HISTORY: Patient reports that her family history is notable for alcoholism and depression in her youngest son. She did not endorse any other significant family medical, mental health, or chemical health history. SOCIAL HISTORY: Patient currently lives alone in her family home in [place] where she has lived for 35 years. She is and her of cancer in 2008. Patient has 3 children including her daughter, Jluis, who is the mother of 3. Her middle son Gely also lives locally and her youngest son Luis Miguel (age 40) is and has 2 children. He is currently staying with the patient in her family home. As noted above, her youngest son has struggled with alcoholism and depression, which she attributes to him blaming himself for patient's father being killed in 1991. Patient has 8 grandchildren total. Patient stated that she has good social support from her family and latter day community. She identifies is Methodist. She significantly enjoys attending concerts, ballgames (Twins, Vikings, and those of her grandchildren), and taking car trips. She also participates in a bowling league in the fall and was planning to take a bus trip with her sister, but has had to cancel this due to recent medical concerns. Patient is retired and did not provide information regarding educational history due to current level of psychological distress/frustration. She has expressed concern with regard to her Medicare [place], although it appears that she has discussed this with various staff members including social work and financial counselor. LEGAL HISTORY: Patient did not endorse a legal history MENTAL STATUS EXAM: Behavior toward examiner: initially guarded, reserved, somewhat harsh/abrasive initially Mood: frustrated Affect: mood congruent, irritable, disgruntled Motor Activity: unremarkable Suicidal Ideation: denied Homicidal Ideation: denied Thought process: linear, goal-directed, logical Thought content: absent for hallucinations or delusions Fund of Knowledge: sufficient Attention/Concentration: intact Language ability: intact Speech: within normal limits Memory: intact Insight and Judgement: fair to good Orientation: appeared oriented to person, place, situation, and time, although orientation was not formally assessed Appearance: casually dressed, seated in bedside chair, neatly groomed Eye Contact: appropriate Estimated IQ: average CLINICAL SUMMARY: Patient is a 71 y.o., , , female with a history of lower extremity DVT, small bowel obstruction, and incarcerated ventral hernia. She underwent mesh repair on 07/26/16 and postop course was complicated by wound infection, dehiscence, and abscess formation. Patient required further surgery, removal of mesh, and debridements. She was stabilized and discharged to a TCU on 09/27/16, but had multiple hospital readmissions due to wound concerns. She was seen in clinic on 10/02/16 and sent home,but had continued concerns for abscess in the left abdomen. She eventually required IV antibiotics and wound VAC as well as additional procedures. Patient underwent another CT scan of the abdomen on 11/10/16, which??showed enterocutaneous fistula with high output. She was eventually stabilized and transferred to [facility] on 11/16/16 for ongoing medical management. She has reportedly expressed high anxiety related to financial concerns with regard to insurance payment. Additionally, she has exp erienced significant frustration related to being in and out of the hospital for the past several months. Upon current interview, patient repeatedly reiterated her frustration with various cares and prolonged hospitalization, noting her premorbid level of independence and involvement in various activities (e.g., attending concerts, ballgames, and social activities with family and friends). She was initially somewhat guarded during interview, but opened up over time, particularly after customs entry writer provided feedback regarding patient's demeanor and the effect on this customs entry writer and our interpersonal communication. We discussed coping skills, as she noted that getting outside and having family visitors has been helpful. Fence Manufacture Supervisor provided education regarding the role of diaphragmatic breathing, guided imagery, and other distraction techniques in managing mood and anxiety. Additionally, we discussed the potential for antidepressant trial and customs entry writer provided additional education. She was encouraged to consider this and discuss with a psychiatrist during his daily rounds. Patient expressed ongoing stress and possible depression related to circumstances at home, noting that her youngest son is currently living with her and suffers from alcoholism. Fence Manufacture Supervisor provided additional support, resources, and education regarding the impact of alcoholism on family dynamics, although she was somewhat dismissive of this, as she noted that her current primary concern involves ameliorating medical concerns and returning home. She was amenable to continued psychology support during current inpatient hospitalization. Patient strengths include good support from family/friends, motivation toward change (i.e., return home), andabsence of significant psychiatric history. DIAGNOSIS: Adjustment Disorder with Mixed Anxiety and Depressed Mood R/O Persistent Depressive Disorder vs. Generalized Anxiety Disorder (although diagnosis not yet warranted and deferred at this time) PLAN: 1. This customs entry writer will meet with the patient as appropriate (weekly) in order to facilitate optimal adjustment to hospitalization and to address psychological issues (e.g., adjustment, anxiety, depressed mood), which are impeding optimal participation in rehabilitation therapies. Likely targets for intervention include those of a cognitive, emotional, and/or behavioral nature. Discharge criteria are when she shows sufficient emotional adjustment and adaptive coping to tolerate an extended hospitalization without further psychological support. Treatment outcome will be monitored by direct observation during sessions, reports from staff and review of the chart. 2. The psychological treatment plan will be reviewed with the interdisciplinary team and integrated with the interdisciplinary treatment plan with the overall goal to discharge the patient to the leastrestrictive setting possible. 3. Input will be sought from the patient and family regarding treatment and discharge planning as appropriate. Education will be provided as appropriate. 4. The above goals were discussed with the patient and agreement to proceed was obtained within her understanding level. Part of the patient???s care will be to address motivation as needed. Thank you, Dr. Burnham and Dr. Camacho, for requesting the participation of psychology service in the care of this patient. Provider Name: Jaki Kaur PsyD, LP Date: 11/21/2016 Time: 11:20 AM Roberto Camacho MD - 11/20/2016 1:05 PM CDT Initial Inpatient Psychiatry Consult Note 11/20/2016 Racquel Jones, a 71 y.o. female, is admitted to the medical service under the care of the hospitalist team on November 16 of this year. The patient has a history of a DVT in the lower extremity as well as a small bowel obstruction and an incarcerated ventral hernia. She had a mesh repair on July 26 which was complicated postoperatively by wound infection and dehiscence as well as abscess formation. This required further surgery and removal of the mesh and debridements. She was stabilized and discharged to a TCU on September 27 of this year. She had multiple admissions following this due to wound issues. She required IV antibiotics. She has had persistent drainage from an old ED site. The patient was seen in clinic on November 01 and sent home but there was concern for abscess of the left side of the abdomen.A CT showed an air-containing abscess which had grown in size. This was in the soft tissues of the ventral abdominal wall. She required I&D and further IV antibiotics. Please see the chart for details. Ultimately she is required a wound VAC and has had multiple other procedures. She was sent here for further assessment and treatment. I been asked to render a psychiatric consultation due to concerns that depression may be compromising her progress here On my interview with patient she admits that she might be a little bit depressed but is somewhat defensive about this. She endorses feeling helpless but not hopeless or worthless. She then discussed how frustrating it has been medically since July and and out of the hospitals and not being able to have any food or water. She denies that she is ever had thoughts of giving up or wishing she was . She denies suicidality. She denies having any panic symptoms but describes general frustration. She describes to me how she was fully independent prior to this event traveling places in her car including concerts and ballgames. She was supposed to go out [place] on a bus trip with her sister and she is going to have to cancel that. Patient denies having any hallucinations or delusions. No bizarre ideations. She admits she had someconfusion during the acute care hospitalization when she was on pain medications and had ongoing infection but she states that has resolved she reports that she is sleeping fairly well if she takes Benadryl at night. She denies having any other questions or concerns. She tells me she is being treated well. She reports she is willing to see the psychologist but at this point she does not want any medication changes. I did spend some time talking with her about the possible roles of an antidepressant and even possibly a different sleep aid. She stated she would consider this. The patient tells me she has multiple stressful things going on in her life and needs to get home toaddress these. She states she does not want to talk about those issues at this point but would talk to a psychologist. Current Medications: Scheduled Meds: ??? atenolol 50 mg Oral DAILY ??? cefTRIAXone (ROCEPHIN) 1 g in 50 mL NS 1 g Intravenous Q24H ??? diphenhydrAMINE 25 mg Intravenous QHS ??? enoxaparin 110 mg Subcutaneous Q24H ??? fat emulsion 250 mL Intravenous Once per day on Sat ??? metroNIDAZOLE 500 mg Intravenous Q8H ??? sodium chloride 10-30 mL Intravenous Q8H FIXED TIMES ??? white petrolatum Topical DAILY Continuous Infusions: ??? dextrose 10% 80 mL/hr (11/16/161817) ??? TPN - Custom formula 80 mL/hr at 11/19/16 2019 ??? TPN - Custom formula PRN Meds:alteplase, bacitracin, dextrose 10%, dextrose 50 % (D50W) OR glucagon (human recombinant), diphenhydrAMINE, HYDROmorphone, naloxone OR naloxone, ondansetron, polyethylene glycol, sodium chloride, sodium chloride, sodium chloride, nacl 0.9% Past medical History: Patientis allergic to amoxicillin and sulfa (sulfonamide antibiotics). has no past medical history on file. has no past surgical history on file. Past Psychiatric History: Patient denies having any premorbid psychiatric diagnoses, assessments or treatments. She is never been to a psychiatrist or psychologist. She has never had significant depressive episodes, dyllan, psychosis or suicidality. She states she has never been on psychotropic medication. She is not currently on psychotropic medication other than Benadryl at bedtime. Substance Abuse and Sexual Activity History: reports that she has never smoked. She has never used smokeless tobacco. She reports that she drinks alcohol. She reports that she does not use illicit drugs. Patient denies having any history of alcohol abuse, illicit drug use or prescription medication misuse. She has never been to detox and has never had a DWI. Family History: family history is not on file. Patient denies family history of mental illness or chemical dependency. Social History: Social History Social History Narrative ??? No narrative on file The patient's from cancer in 2008. She is quite independent and lives in her own home. She enjoys going to concerts and [email or web address]. Please see the social service notes as well as the nursing intake notes for additional details. Review Of Systems: Patient admits occasional pain around the wound site. Remainder review of systems is consistent withthe admission note. Please see admit ROS. Mental Status Exam: Appearance: Patient was sitting up calm and comfortable well groomed and she was on her iPad. She immediately put this away when I entered the room. She did not appear to be uncomfortable or short of breath. Behavior: Cooperative and pleasant. No agitation or distress. Not restless. Speech: Sentence structure was intact. Content was appropriate. She was able to dialogue well. No pressured or rambling quality. Mood/Affect: Somewhat flat and appears somewhat depressed. Not tearful. No irritability or lability. Attention and concentration: Grossly intact. Tracking and following well. Thought Content: No psychosis Suicidal/Homicidal Ideation: None Thought Process : Not loose. Able to process information. Participating and tracking well. No racingthoughts. Insight: Grossly intact Judgement: Grossly intact Memory: Grossly intact Gait: Please see therapy notes Orientation: Grossly intact. Please see therapy notes Physical Exam: Vitals:BP 117/56 Pulse 95 Temp 98.3 ??F (36.8 ??C) (Oral) Resp 18 Ht 5' 1 (1.549 m) Wt 163 lb 6.4 oz (74.1 kg) SpO2 96% BMI 30.87 kg/m2 Full Physical Exam is per the Attending Team Recent Labs: Recent Results (from the past 24 hour(s)) TPN Panel Collection Time: 11/20/16 5:56 AM Result Value Ref Range Sodium 136 136 - 145 mmol/L Potassium 3.9 3.5 - 5.0 mmol/L Chloride 104 98 - 107 mmol/L CO2 25 22 - 31 mmol/L Glucose 101 70 - 125 mg/dL BUN 16 8 - 28 mg/dL Creatinine 0.52 (L) 0.60 - 1.10 mg/dL GFR MDRD Af Amer >60 >60 mL/min/1.73m2 GFR MDRD Non Af Amer >60 >60 mL/min/1.73m2 Calcium 8.2 (L) 8.5 - 10.5 mg/dL Bilirubin, Total 0.2 0.0 - 1.0 mg/dL Phosphorus 3.8 2.5 - 4.5 mg/dL Protein, Total 6.1 6.0 - 8.0 g/dL Alkaline Phosphatase 54 45 - 120 U/L AST 15 0 - 40 U/L Magnesium 1.7 (L) 1.8 - 2.6 mg/dL Triglycerides 139 <=149 mg/dL Prealbumin 17.8 (L) 19.0 - 38.0 mg/dL Albumin 2.6 (L) 3.5 - 5.0 g/dL INR Collection Time: 11/20/16 5:56 AM Result Value Ref Range INR 1.04 0.90 - 1.10 POCT Glucose Collection Time: 11/20/16 12:12 PM Result Value Ref Range Glucose, POC 147 mg/dL Diagnosis: [place] I: Major depressive disorder, single episode, moderate to severe, without psychotic features Encephalopathy and possible mood disorder secondary to underlying medical issues including infection and recent surgery, improved [place] II: Deferred [place] III: Please see above [place] IV: Severe [place] V: GAF currently approximately 45-50 Current Problem List:: Patient Active Problem List Diagnosis ??? Enterocutaneous fistula ??? Abdominal wall abscess ??? Essential hypertension ??? Chronic diastolic heart failure ??? Physical deconditioning ??? Insomnia ??? DVT, lower extremity ??? Open abdominal wall wound, sequela ??? Onychomycosis ??? Onychauxis Plan: I recommend that I follow the patient from a psychiatric standpoint. This patient will be seen and evaluated by PT, OT, and Speech as appropriate for development of an individualized treatment plan anddelineation of any cognitive and physical deficits. I will assess for the appropriateness of possible psychotropic medication trials/changes. At this time I will make no medication changes. Although I do believe the patient could benefit from an antidepressant trial at this point she is declining that option. I have asked psychology to see the patient.We will continue to monitor sleep and promote good sleep hygiene. We will continue to monitor patient's participation in mood through therapist as well. I will continue to follow along. I will make myself available if any questions, concerns, or problems arise. Thank you for allowing me to participate in the care of this patient. Much or all of the text in this note was generated through the use of [employer] [id number] software. Errors in spelling or words which seem out of context are unintentional. Sound alike errors,in particular, may have escaped editing. Roberto Camacho Jalil Wagoner MD - 11/19/2016 11:56 AM CDT Admission History & Physical Racquel Jones, 1945, [id number] [facility] Prd Eloise Malave MD, None Extended Emergency Contact Information Primary Emergency Contact: Jluis Chappell [facility] Mobile Relation: Child Secondary Emergency Contact: Gely Jones [facility] Mobile Relation: Child Assessment and Plan: Assessment: Onychomycosis, onychauxis Plan: Debrided nails 1 through 5 both feet Principal Problem: Enterocutaneous fistula Active Problems: Abdominal wall abscess Essential hypertension Chronic diastolic heart failure Physical deconditioning Insomnia DVT, lower extremity Open abdominal wall wound, sequela Chief Complaint: Thick painful nails both feet HPI: Racquel M Estrem is a 71 y.o. old female who I was asked to see to evaluate and treat for long thick painful nails both feet. The patient indicated that her nails can be quite painful. She was concernedthat it would be very tender attempted to trim her nails. She has not had her nails treated for several months. She stated that all of her nails are very thick which causes the tenderness. She has not had any redness, swelling, drainage or bleeding. She denies any other previous treatment. History is provided by patient Medical History There are no active non-hospital problems to display for this patient. No past medical history on file. Patient Active Problem List Diagnosis Date Noted ??? Enterocutaneous fistula 11/16/2016 ??? Abdominal wall abscess 11/16/2016 ??? Essential hypertension 11/16/2016 ??? Chronic diastolic heart failure 11/16/2016 ??? Physical deconditioning 11/16/2016 ??? Insomnia 11/16/2016 ??? DVT, lower extremity 11/16/2016 ??? Open abdominal wall wound, sequela Surgical History She has no past surgical history on file. No past surgical history on file. Social History Reviewed, and she reports that she has never smoked. She has never used smokeless tobacco. She reports that she drinks alcohol. She reports that she does not use illicit drugs. Social History Substance Use Topics ??? Smoking status: Never Smoker ??? Smokeless tobacco: Never Used ??? Alcohol use Yes Comment: once a month when out for dinner Allergies Allergies Allergen Reactions ??? Amoxicillin ??? Sulfa (Sulfonamide Antibiotics) Family History Reviewed, and family history is not on file. Psychosocial Needs Social History Social History Narrative ??? No narrative on file Additional psychosocial needs reviewed per nursing assessment. Prior to Admission Medications Prescriptions Prior to Admission Medication Sig Dispense Refill Last Dose ??? cefTRIAXone 1 g in NaCl 0.9 % 0.9 % 50 mL IVPB Infuse 1 g into a venous catheter daily. X 7 days ??? diphenhydrAMINE (BENADRYL) 50 mg/mL injection Infuse 25 mg into a venous catheter every 6 (six) hours as needed for itching. ??? enoxaparin (LOVENOX) 300 mg/3 mL Soln Inject 110 mg under the skin daily. ??? HYDROmorphone (DILAUDID) 1 mg/mL injection Infuse 0.2-0.3 mg into a venous catheter every 2 (two) hours as needed (severe pain). ??? metroNIDAZOLE (FLAGYL) 500 mg/100 mL IVPB Infuse 500 mg into a venous catheter every 8 (eight) hours. ??? nystatin (MYCOSTATIN) 100,000 unit/mL suspension Apply 500,000 Units topically as needed (Apply to affected area during wound vac changes). ??? ondansetron (ZOFRAN) 4 mg/2 mL injection Infuse 4 mg into a venous catheter every 6 (six) hours as needed (nausea/vomiting). ??? TPN CUSTOM FORMULA HE Infuse into a venous catheter daily at 8 pm. Review of Systems - Negative BP 123/59 Pulse 84 Temp 98.7 ??F (37.1 ??C) (Oral) Resp 16 Ht 5' 1 (1.549 m) Wt 159 lb 11.2 oz (72.4 kg) SpO2 96% BMI 30.18 kg/m2 Objective findings: General: The patient is alert and in no acute distress Integument: Nails bilateral feet are elongated and 2-3 times normal thickness. Skin bilaterally warmand intact. Vascular: DP and PT pulses +2/4 bilateral feet. Capillary refill less than 2 seconds bilaterally. Neurologic: Negative clonus, negative Babinski bilateral feet. Musculoskeletal: Range of motion within normal limits bilaterally. Muscle power +5/5 bilaterally in all compartments. Assessment: Onychomycosis, onychauxis Plan: Debrided nails 1 through 5 today at bedside documented in this encounter Plan of Treatment Upcoming Encounters Date Type Specialty Care Team Description 05/16/2022 Office Visit Cardiology Jorge Luis Akers DO [address] [place] [id number] (Wo rk) documented as of this encounter Procedures Procedure Name Priority Date/Time Associated Diagnosis Comme nts CT ABDOMEN PELVIS Routine 11/26/2016 1:07 PM Resu lts for this W/O & W CONTRAST CDT procedure a re in the results section. documented in this encounter Results CT Abdomen Pelvis w/o & w Contrast (11/26/2016 1:07 PM CDT) Anatomical Region Laterality Modality Abdomen/Pelvis, SUBRAD CT BODY, UMP CT ABDOMEN PELVIS, Computed Tomography RAD CT Specimen (Source) Anatomical Location Collection Method / Collectio n Time Received Time / Laterality Volume Impressions 11/26/2016 1:58 PM CDT CONCLUSION: 1. Complex fluid collections in the ante rior abdominal wall associated with a mesh graft and enterocutaneous fistulae as above. Narrative 11/26/2016 1:[address] ABDOMEN PELVIS WO ORAL W WO IV CONTRAST 11/26/2016 1:07 PM INDICATION: Follow up abdominal abscesse s and ec fistula, Previous CT a/p done at [facility]. TECHNIQUE: CT abdomen and pelvis without contrast and with IV contrast with delayed images. Multiplanar reformation images (MPR). Dose reduction techniques were used.? IV CONTRAST: Iohexol (Omni) 350, 100 mL. COMPARISON: None. FINDINGS: LUNG BASES: Negative. ABDOMEN: Liver normal. High density mate rial demonstrated in the dependent portion of the gallbladder are consistent with gallstones. Stomach and duodenal sweep are normal. Pancreas is normal. Spleen no rmal. Adrenal glands normal. Kidneys nor mal without renal calculi or hydronephrosis. ASCVD a ankur. Infrarenal aorta 1.3 x 1.5 cm. No periaortic adenopathy. PELVIS: Normal appendix. Sigmoid diverti culosis without diverticulitis. No abscess. ANTERIOR ABDOMINAL WALL: There is a mesh graft demonstrated across a ventral hernia. There is fluid and air in the anterior abdominal wall which involves both the mesh graft as well as soft tissues of the anterior abdominal wall consistent with enterocutaneous fistulae. There are appl iances present over the lower anterior abdominal wall which are collecting the drainage from the fistulae. There is marked stranding in the anterior abdominal wal l soft tissues. The fistulae are drainin g to the three sites which are covered with appli ances adhered to the anterior abdominal wall noted on image 101, 109, and 108. MUSCULOSKELETAL: Negative. Procedure Note Cy Jimenez MD - 09/26/2020Forma tting of this note might be different from the original. CT ABDOMEN PELVIS WO ORAL W WO IV CONTRA ST 11/26/2016 1:07 PM INDICATION: Follow up abdominal abscesse s and ec fistula, Previous CT a/p done at [facility]. TECHNIQUE: CT abdomen and pelvis without contrast and with IV contrast with delayed images. Multiplanar reformation images (MPR). Dose reduction techniques were used.? IV CONTRAST: Iohexol (Omni) 350, 100 mL. COMPARISON: None. FINDINGS: LUNG BASES: Negative. ABDOMEN: Liver normal. High density mate rial demonstrated in the dependent portion of the gallbladder are consistent with gallstones. Stomach and duodenal sweep are normal. Pancreas is normal. Spleen normal. Adrenal glands normal. Kidneys normal without renal calculi or hydronephrosis. ASCVD a ankur. Infrarenal aorta 1.3 x 1.5 cm. No periaortic adenopathy. PELVIS: Normal appendix. Sigmoid diverti culosis without diverticulitis. No abscess. ANTERIOR ABDOMINAL WALL: There is a mesh graft demonstrated across a ventral hernia. There is fluid and air in the anterior abdominal wall which involves both the mesh graft as well as soft tissues of the anterior abdominal wall consistent with enterocutaneous fistulae. There are appl iances present over the lower anterior abdominal wall which are collecting the drainage from the fistulae. There is marked stranding in the anterior abdominal wall soft tissues. The fistulae are draining to th e three sites which are covered with appli ances adhered to the anterior abdominal wall noted on image 101, 109, and 108. MUSCULOSKELETAL: Negative. IMPRESSION: CONCLUSION: 1. Complex fluid collections in the ante rior abdominal wall associated with a mesh graft and enterocutaneous fistulae as above. Jenni Burnham MD IMG CT ORDERABLES documented in this encounter Visit Diagnoses Diagnosis Depression Depressive disorder, not elsewhere class ified Abdominal wall abscess Cellulitis and abscess of trunk Enterocutaneous fistula Fistula of intestine, excluding rectum a nd anus Non-healing surgical wound, subsequent e ncounter Chronic diastolic heart failure (H) Chronic diastolic heart failure DVT, lower extremity (H) Acute venous embolism and thrombosis of unspecified deep vessels of lower extremity documented in this encounter Care Teams Cloth Napping Supervisor Relationship Specialty Start Date End Date [facility] PCP - General 01/27/16 10/06/20 [address] [address] [place], [place] [id number] documented as of this encounter
--- OUTSIDE RECORDS SUMMARY | 2022-02-20 21:14 | XMS_ITS | Encounter Summary ---
:1945 Author Organization [place] Address [facility] [place] [address] Care Team Providers Name Role Phone [facility] Medical Primary Care Provider [phone] Ivis Akers DO Unavailable [phone] Yesenia Granger MD Unavailable Encounter Details Date Type Department Care Team Description 11/26/2016 Home Care/Hospice - [facility] [address] [place] [address] Social History Tobacco Use Types Packs/Day Years Used Date Smoking Tobacco: Never Alcohol Use Standard Drinks/Week Comments No 0 (1 standard drink = 0.6 oz pure alcoho l) Sex Assigned at Date Recorded Not on file COVID-19 Exposure Response Date Recorded In the last month, have you been in contact with No / Unsure 06/14/2020 10:09 AM POULTRY HANGER someone who was confirmed or suspected to have Coronavirus / COVID-19? documented as of this encounter Plan of Treatment Upcoming Encounters Date Type Specialty Care Team Description 05/16/2022 Office Visit Cardiology Jorge Luis Akers DO [address] [place] [id number] (Wo rk) documented as of this encounter Visit Diagnoses Not on filedocumented in this encounter Care Teams Public Information Coordinator Relationship Specialty Start Date End Date [facility] PCP - General 01/27/[address] [place] [address] [place] [address] Ivis Akers Assigned Heart and Vascular 02/12/20 10/01/20 DO Shira Provider [address] [place], [place] [id number] Yesenia Granger MD Assigned Surgical Provider 03/13/[address] [place] [address] [address] [place] [address] documented as of this encounter
--- OUTSIDE RECORDS SUMMARY | 2022-02-20 21:14 | XMS_ITS | Encounter Summary ---
:1945 Author Organization [place] Address [address] [place] [address]. [place] [address] Care Team Providers Name Role Phone [facility] Primary Care Provider [phone] Encounter Details Date Type Department Care Team Description 09/03/2019 Travel Social History Tobacco Use Types Packs/Day Years Used Date Smoking Tobacco: Never Smokeless Tobacco: Never Alcohol Use Standard Drinks/Week Comments No 0 (1 standard drink = 0.6 oz pure alcoho l) Sex Assigned at Date Recorded Not on file COVID-19 Exposure Response Date Recorded In the last month, have you been in contact with Yes 09/03/2019 9:01 AM CDT someone who was confirmed or suspected to have Coronavirus / COVID-19? documented as of this encounter Plan of Treatment Upcoming Encounters Date Type Specialty Care Team Description 05/16/2022 Office Visit Cardiology Jorge Luis Akers DO [address] [place], [place] [address] (Wo rk) documented as of this encounter Visit Diagnoses Not on filedocumented in this encounter Care Teams Infusion Therapy Nurse Relationship Specialty Start Date End Date [facility] PCP - General 01/27/16 10/06/20 [address] [place], [place] [id number] documented as of this encounter
--- OUTSIDE RECORDS SUMMARY | 2022-02-20 21:14 | XMS_ITS | Encounter Summary ---
:1945 Author Organization [place] Address [address] [place] [address] Care Team Providers Name Role Phone Unavailable Primary Care Provider Unavailable Encounter Details Date Type Department Care Team Description 09/18/2008 Historic Notes INTERFACED REPORT Interface, Transcript onMD Social History Tobacco Use Types Packs/Day Years Used Date Smoking Tobacco: Never Assessed Sex Assigned at Date Recorded Not on file documented as of this encounter Progress Notes Interface, Pmo Business Analyst - 07/09/2010 2:23 AM CDT Allergies ?? Sulfa;Dyspnea Basic Medication Information - History taken from:: Patient Medications (#1-10) - Medication: atenolol - Medication: zocor - Medication: prilosec - Medication: asa Discharge Orders Pharmacy - Analgesic([facility] ONLY) ?? Oxycodone/Acetaminophen -;5/325 mg for PERCOCET 1 to 2 tablet(s) By Mouth Every 6 Hours PRN for Pain, , Active Destination - Destination: Home. The above information was obtained from available resources. Review this list with your primary physician and take all medications as directed. Signatures SHIRA VIEIRA (RN)[Signed 16:36] Authored: Allergies, Basic Medication Information, Medications (#1-10) Ling Vieira (RN)[Signed 19:43] Authored: Discharge Orders, Destination documented in this encounter Plan of Treatment Upcoming Encounters Date Type Specialty Care Team Description 05/16/2022 Office Visit Cardiology Jorge Luis Akers, DO [address] [place] [address] (Wo rk) documented as of this encounter Visit Diagnoses Not on filedocumented in this encounter
--- OUTSIDE RECORDS SUMMARY | 2022-02-20 21:14 | XMS_ITS | Encounter Summary ---
:1945 Author Organization [place] Address [address] [place] [address] Care Team Providers Name Role Phone [place], [facility] Primary Care Provider [phone] Ivis Akers DO Unavailable [phone] Yesenia Granger MD Unavailable Eloise Malave MD Primary Care Provider Ayala Lemos APRN PERSONAL CLOTHING LAUNDRY AIDE Unavailable [phone] Malina Parra MD Unavailable Tiffanie Lomeli PA-C Unavailable [phone] Ivis Akers DO Unavailable [phone] Encounter Details Date Type Department Care Team Description 11/21/2016 Records - [facility] OUTPATIENT Provider, [facility] SERVICES [address] [place] [address] Social History Tobacco Use Types Packs/Day Years Used Date Smoking Tobacco: Never Alcohol Use Standard Drinks/Week Comments No 0 (1 standard drink = 0.6 oz pure alcoho l) Sex Assigned at Date Recorded Not on file documented as of this encounter Progress Notes Historical Provider - 11/21/2016 1:31 PM CDT Documentation made in error. Please disregard. documented in this encounter Plan of Treatment Upcoming Encounters Date Type Specialty Care Team Description 05/16/2022 Office Visit Cardiology Jorge Luis Akers DO [address] [place] [phone] (Wo rk) documented as of this encounter Visit Diagnoses Not on filedocumented in this encounter Care Teams Monitor Tech Relationship Specialty Start Date End Date [facility] PCP - General 01/27/16 Medical [address] [place] [address] Eloise Malave MD PCP - General Family Medicine 10/07/20 [facility] [address] [place], [place] [id number] Ivis Akers Assigned Heart and 02/12/2010/01 DO Shira Vascular Provider [address] [place] [address] Yesenia Granger Assigned Surgical 03/13/20 2 MD Crow Provider [address] [facility] [address] [place] [address] Ayala Lemos, Assigned Heart and 10/02/20 CHAIR TRIMMER PERSONAL CLOTHING LAUNDRY AIDE Vascular Provider [address] [place] [address] Malina Parra Assigned Sleep 11/27/20 12/31/20 MD Gio Provider [address] [facility] [address] [place] [address] Tiffanie Lomeli Assigned Sleep 01/01/21 RAOUL Garcia Provider [address] [place] [address] Ivis Akers MD Cardiovascular Disease 01/05/22 DO Shira [address] [place] [address] documented as of this encounter
--- OUTSIDE RECORDS SUMMARY | 2022-02-20 21:14 | XMS_ITS | Encounter Summary ---
:1945 Author Organization [place] Address [address] [facility] [place] [address] Care Team Providers Name Role Phone [place], [facility] Primary Care Provider [phone] Reason for Referral (Routine) - Closed Specialty Diagnoses / Procedures Referred By Contact Refer red To Contact Diagnoses Paroxysmal atrial fibrillation (H) Chronic diastolic congestive heart failure (H) Essential hypertension Deep vein thrombosis (DVT) of left lower extremity, unspecified chronicity, unspecified vein (H) Baljinder Akers DO [address] [place] [address] Referral ID Status Reason Start Date Expiration Date Visits Requ ested Visits Authorized [id number] Closed 09/03/2019 09/02/2020 1 1 Reason for Visit Reason Onset Date Comments Consult 09/03/2019 establish care per p t/PCP forA-fib w/RVR (on Eliquis), HFpEF, HTN, hx of DVT, Encounter Details Date Type Department Care Team Description 09/03/2019 [facility] (H) (Primary Dx); Heart [facility] DO Shira Chronic diastolic congestive heart failu re (H); Arab[place] [address] Essential hypertension; [address] Deep vein thrombosis (DVT) of left lower extremity, unspecified chronicity, unspecified vein (H) [address] [place] [address] [place], [place] [phone] (Wo rk) [address] [phone] Social History Tobacco Use Types Packs/Day Years [...] - Inhaled Oxygen Concentration - - Weight 78.9 kg (174 lb) 09/03/2019 9:18 AM per pt home reading CDT Height - - Body Mass Index 32.88 03/20/2017 1:27 PM POKER PROP PLAYER documented in this encounter Progress Notes Baljinder Akers, - 09/03/2019 9:55 AM CDT Service Date: 09/03/2019 NEW PATIENT VIRTUAL VIDEO VISIT REFERRING PHYSICIAN: Eloise Malave MD HISTORY OF PRESENT ILLNESS: Ms. Cheema is a very pleasant, 73-year-old female who has been referred to our clinic today for establishing Cardiology care. She underwent a ventral hernia repair last yearand developed complications requiring prolonged intensive care unit stay and postop atrial fibrillation. She was placed on Eliquis, she underwent a cardioversion, and she was also placed on short-term amiodarone. She had a dobutamine stress test back in August of last year that was considered normal. Cedric had a followup Holter monitor in April of this year showing no evidence of recurrence of atrial fibrillation. She tells me she was taken off of amiodarone and Eliquis by Dr. Kannan Saeed, her surgeon, in June of this year. She has continued to take metoprolol 50 mg daily without side effect. She had been previously taking atenolol 25 mg daily prior to her hospitalization. She denies any current palpitations or chest pains. She does have dyspnea with exertion, especially with stairs. This isunchanged over the course of the last year. She has mild ankle swelling and has had vein stripping of varicose veins. She has had a blood clot in her leg, which she believes was following her surgery. She was treated with Xarelto for a short time and then subsequently taken off of this. She was diagnosed with left-sided breast cancer in July and underwent a lumpectomy and radiation therapy, but no chemotherapy. She was not able to self report her blood pressure or heart rate today. Her weight is 174 pounds. In summary, Ms. Cheema is a very pleasant, 73-year-old female with a history of hypertension, postoperative atrial fibrillation, heart failure with preserved ejection fraction, untreated sleep apnea and a history of DVT. Her CHADS-VASc score is 5, indicating increased risk for cardioembolic events related to atrial fibrillation; however, she has not demonstrated recurrence of atrial fibrillation on Holter monitor, and her episode was perioperatively. I did discuss today with her her risks for futurecardioembolic events if atrial fibrillation recurs. She was taken off of Eliquis in June, but she is currently not on any anticoagulant. At this time, I will recommend 162 mg of aspirin to take with food to reduce cardio-cerebrovascular events. We talked about her breathing difficulties. Currently, they appear stable, but we discussed symptoms that would be consistent with heart failure, including difficulty breathing at night. She will contact me if she experiences anything in this regard. I will be happy to follow her on an annual basis or as needed. Please feel free to contact me with any questions you have in regard to her care. cc: [place] [address] BALJINDER AKERS DO MT: xochitl Name: RACQUEL CHEEMA MRN: [id number] Account: [id number] : 1945 Service Date: 09/03/2019 Document: [id number] Baljinder Akers DO - 09/03/2019 9:15 AM CDT Racquel Cheema is a 73 year old female who is being evaluated [...] to obtain your AVS? Mail a copy Patient would like the video invitation sent by: Text to cell phone: [phone] Will anyone else be joining your video visit? No Video-Visit Details Type of service: Video Visit Video Start Time: 9:22A Video End Time: 9:44A Originating Location (pt. Location): Home Distant Location (provider location): [facility] Platform used for Video Visit: Emma YING DO Review Of Systems Skin: eczema, dry Eyes: glasses Ears/Nose/Throat: negative, hearing loss, uses hearing aids Respiratory: Dyspnea on exertion- with lots of walking Cardiovascular: chest pain and sometimes has pain in chest, some what swelling in ankles and feet Gastrointestinal: negative Genitourinary: negative Musculoskeletal: back pain and arthritis Neurologic: negative Psychiatric: excessive stress Hematologic/Lymphatic/Immunologic: negative Endocrine: negative Patient reported vitals: BP: Heart rate: Weight: 174lb Leonor Supalo DIGITAL MARKETING EXECUTIVE General: no apparent distress, normal body habitus, sitting upright. ENT/Mouth: membranes moist, no nasal discharge. Normal head shape, no apparent injury or laceration. Eyes: no scleral icterus, normal conjunctivae. No observed jaundice. Neck: no apparent neck swelling. Chest/Lungs: No breathing difficulty while speaking. No audible wheezing. No cough during conversation. Cardiovascular: No obviously elevated jugular venous pressure. 1+ edema with varicose veins Abdomen: no obvious abdominal distention. Extremities: no apparent cyanosis. Skin: no xanthelasma. No facial lacerations. Neurologic: Normal arm motion bilateral, ESSENTIAL tremor NOTED Psychiatric: Alert and oriented x3, calm demeanor The rest of the comprehensive physical examination is deferred due to [facility] emergency video visit restrictions. Baljinder Akers DO documented in this encounter Plan of Treatment Upcoming Encounters Date Type Specialty Care Team Description 05/16/2022 Office Visit Cardiology Jorge Luis Akers DO [address] [facility] [address] [place] [id number] (Wo rk) Scheduled Referrals Name Type Priority Associated Diagnoses Order S chedule Follow-Up with Referral Routine Paroxysmal atrial Expected : 09/02/2020 Cardiac Advanced fibrillation (H ) (Approximate), Practice Provider Chronic diastolic Expir es: 09/03/2020 congestive heart failure (H) Essential hypert ension Deep vein thrombosis (DVT) of left lower extremity, unspecified chronicity, unspecified vein (H) documented as of this encounter Visit Diagnoses Diagnosis Paroxysmal atrial fibrillation (H) - Mireya jojo Atrial fibrillation Chronic diastolic congestive heart failu re (H) Chronic diastolic heart failure Essential hypertension Unspecified essential hypertension Deep vein thrombosis (DVT) of left lower extremity, unspecified chronicity, unspecified vein (H) documented in this encounter Care Teams Branch Maker Relationship Specialty Start Date End Date [facility] Medical PCP - General 01/27/16 10/06/20 [address] [place] [address] documented as of this encounter
--- OUTSIDE RECORDS SUMMARY | 2022-02-20 21:14 | XMS_ITS | Encounter Summary ---
:1945 Author Organization [place] Address [address] [place] [address] Care Team Providers Name Role Phone Sullivan, [facility] Primary Care Provider Reason for Visit Reason Comments Abdominal Pain Encounter Details Date Type Department Care Team Description 07/25/2016 [facility] Jennifer Meneses MD [facility] [address] [place] [address] Small bowel obstruction; [facility] Emergency Dep t King Armendariz MD [facility] [address] [place] [address] Incarcerated ventral hernia; [address] Nausea, vomiting, [place] [address] Social History Tobacco Use Types Packs/Day Years Used Date Smoking Tobacco: Never Alcohol Use Standard Drinks/Week Comments No 0 (1 standard drink = 0.6 oz pure alcoho l) Sex Assigned at Date Recorded Not on file documented as of this encounter Last Filed Vital Signs Vital Sign Reading Time Taken Comments Blood Pressure 125/72 07/25/2016 10:15 PM CDT Pulse 70 07/25/2016 3:36 PM CDT Temperature 36.5 ??C (97.7 ??F) 07/25/2016 3:36 PM CDT Respiratory Rate 20 07/25/2016 3:36 PM CDT Oxygen Saturation 95% 07/25/2016 10:15 PM CDT Inhaled Oxygen Concentration - - Weight 81.6 kg (180 lb) 07/25/2016 3:36 PM CDT Height - - Body Mass Index - - documented in this encounter ED Notes Mir Harper - 07/25/2016 4:22 PM CDT Assisted with Pt. Triage, Applied monitoring devices (BP, and pulse ox) onto Patient. Oral temp taken Saida Quinn RN - 07/25/2016 3:39 PM CDT Pt sent here from [facility] for a known partial small bowel obstruction. Pt reports abdominal pain, n/v, and diarrhea. Pt given 4 mg zofran and 30 mg toradol IM which have helped. Jennifer Meneses MD - 07/25/2016 3:19 PM CDT History Chief Complaint: Abdominal Pain HPI: Racquel Jones is a 70 year old female with a history of hypertension and hyperlipidemia who presents with abdominal pain. The patient reports that she first began having diarrhea starting yesterday afternoon. This morning around 0930, she began experiencing severe, diffuse abdominal pain along with nausea and vomiting, prompting her visit to [facility]. She had a small loose stool (not bloody or black) this morning but none since. There she had laboratory work up and X-Ray revealing a possible small bowel obstruction. Given this, she referred to the ED for further workup and diagnosis. Additionally, she complains of chills, but denies fever or dysuria. She denies rash. She has chronic intermittent leg swelling. Laboratory Work Up Performed 07/25/2016: Urinalysis: AST: 20 Urine Color: Yellow Urine Clarity: Clear PH Urine: 6 Specific [place]: 1.020 Leukocytes: Negative Nitrite: Negative RBC: Trace RBC/HPF: 0-1 EPI/HPF: Rare Mucous: Negative Casts: 0 WBC/HPF: 0-1 Comprehensive Metabolic Panel: Na: 138 K+: 4.3 Cl: 100 Glucose: 127 BUN: 15 Creatinine: 0.7 Calcium: 10.4 ALT: 23 Bilirubin Total: 0.65 Protein Total: 8.2 Albumin: 3.9 Globulin Total: 4.3 CBC: WBC: 15.6 RBC: 4.83 HGB: 14.6 HCT: 42.9 MCV: 88.8 Platelet: 323 Alkaline Phosphatase: 77 Imaging Performed on 07/25/2016: XR Abdomen Complete, 2 views: FINDINGS: Mildly dilated loops of mid small bowel with air-fluid levels on the upright film. There is gas in nondisteded colon. Findings may represent a partial small bowel obstruction. No free intraperitoneal air. Scoliosis of the thoracolumbar spine. Allergies: Sulfa Drugs Medications: The patient is not currently taking any prescribed medications. Past Medical History: Hyperlipidemia Hypertension Osteoporosis Past Surgical History: Hernia repair x3 Orthopedic surgery Eye surgery Family History: History reviewed. No pertinent family history. Social History: Smoking status: Never Smoker Alcohol use: No Marital Status: Presents with son at bedside. Review of Systems Constitutional: Positive for chills. Negative for fever. Gastrointestinal: Positive for abdominal pain, diarrhea, nausea and vomiting. Genitourinary: Negative for dysuria. All other systems reviewed and are negative. Physical Exam Patient Vitals for the past 24 hrs: BP Temp Temp src Pulse Resp SpO2 Weight 07/25/16 1645 115/55 - - - - 95 % - 07/25/16 1630 131/66 - - - - - - 07/25/16 1539 110/64 - - - - - - 07/25/16 1536 - 97.7 ??F (36.5 ??C) Oral 70 20 94 % 81.6 kg (180 lb) Physical Exam: General: Elderly adult female laying flat. Eyes: PERRL, Conjunctive within normal limits. No scleral icterus. ENT: Dry mucous membranes, oropharynx clear. CV: Normal S1S2, no murmur, rub or gallop. Regular rate and rhythm Resp: Clear to auscultation bilaterally, no wheezes, rales or rhonchi. Normal respiratory effort. GI: Abdomen is soft. Multiple areas of scarred down tissue with a palpable soft ball size mass in the right low abdomeen. Distended, tender diffusely, more promient on left and directly over the right mass. MSK: Nontender. Normal active range of motion. Non pitting edema at the ankles. Skin: Warm and dry. No rashes or lesions or ecchymoses on visible skin. Neuro: Alert and oriented. Responds appropriately to all questions and commands. No focal findings appreciated. Normal muscle tone. Psych: Normal mood and affect. Pleasant. Emergency Department Course Imaging: Radiographic findings were communicated with the patient and family who voiced understanding of the findings. CT-scan Abdomen/Pelvis w/ contrast: IMPRESSION: 1. Prominent anterior abdominal and pelvic wall hernia containing loops of small bowel. This results in a small bowel obstruction. 2. Colonic diverticulosis with no evidence of diverticulitis. Preliminary result per radiology. Laboratory: Lactic Acid: 1.1 Interventions: 1646- NS 1L IV Bolus 1754- Morphine 4 mg IV 1754- Zofran 4 mg IV 1759- 0.9% NaCl 1L IV The patient's symptoms were improved with parenteral narcotics. Emergency Department Course: Past medical records, nursing notes, and vitals reviewed. 1622: I performed an exam of the patient and obtained history, as documented above. IV inserted and blood drawn. The patient was sent for a CT of the abdomen and pelvis while in the emergency department, findings above. The above interventions were administered. 1803: I discussed the case with Dr. Yañez of general surgery regarding the patient. She recommended transfer to another facility given likely complications with her surgery. 1805: I rechecked the patient. Explained findings to the patient. Findings and plan explained to the Patient and daughter. She denies any new concerns. Mild pain reported. 1820: Patient will be transferred to another facility via EMS pending final placement decisions. Discussed the case with Dr. Armendariz, who will make the final transfer decision and care for the patientfor the duration of her stay in the emergency room. Impression & Plan Medical Decision Making: This is 70 year old female with multiple abdominal hernias and repairs with a total of 3 in reporteddifferent locations (patient poor historian) who presents to the ED with concerns for abdominal pain, nausea, vomiting, diarrhea. She has no peritoneal signs although is tender with multiple palpable masses throughout the abdomen. She has a CT which shows likely incarcerated ventral wall hernia causing small bowel obstruction. Normal lactic acid level. She has no fevers. Her symptoms are controlled with interventions here. She was not sure at this time where she would want to be transferred as Dr. Yañez of general surgery thought surgery would likely be too complicated and she would need higher level surgical care. The [facility] was recommended. The patient is currently deciding [facility] there and [facility]'s [facility] before. Diagnosis: ICD-10-CM 1. Small bowel obstruction (H) K56.69 2. Incarcerated ventral hernia K46.0 3. Nausea, vomiting, and diarrhea R11.2 R19.7 Disposition: The patient will be transferred to another facility and is awaiting final decisions and bed placement. Her care here at [facility] was transferred to my partner Dr. Armendariz while awaiting tranfer. Chanell Redding 07/25/2016 [facility] EMERGENCY DEPARTMENT I, Chanell Redding, am serving as a scribe at 4:22 PM on 07/25/2016 to document services personally performed by Jennifer Meneses MD based on my observations and the provider's statements to me. Jennifer Meneses MD 07/26/16 1608 documented in this encounter Plan of Treatment Upcoming Encounters Date Type Specialty Care Team Description 05/16/2022 Office Visit Cardiology Jorge Luis Akers DO [address] [place] [address] (Wo rk) documented as of this encounter Procedures Procedure Name Priority Date/Time Associated Diagnosis Comme nts BASIC METABOLIC Routine 07/25/2016 7:30 PM Small bowel Result s for this PANEL CDT obstruction procedure are i n the results section. CBC WITH PLATELETS Routine 07/25/2016 7:30 PM Small bowel Res ults for this CDT obstruction procedure are i n the results section. EKG 12-LEAD, STAT 07/25/2016 6:23 PM Results f or this TRACING ONLY CDT procedure are i n the results section. CT ABDOMEN PELVIS W STAT 07/25/2016 5:51 PM Re sults for this CONTRAST CDT procedure are i n the results section. LACTIC ACID WHOLE STAT 07/25/2016 4:41 PM Resu lts for this BLOOD CDT procedure are i n the results section. documented in this encounter Results (ABNORMAL) Basic metabolic panel (BMP) (07/25/2016 7:30 PM CDT) athologist Signature Sodium 138 133 - 144 [place] mmol/L [facility] Potassium 4.0 3.4 - 5.3 [place] mmol/L [facility] Chloride 100 94 - 109 [place] mmol/L [facility] Carbon Dioxide 28 20 - 32 [place] mmol/L [facility] Anion Gap 10 3 - 14 [place] mmol/L [facility] Glucose 119 (H) 70 - 99 [place] mg/dL [facility] Urea Nitrogen 17 7 - 30 [place] mg/dL [facility] Creatinine 0.75 0.52 - [place] 1.04 mg/dL [facility] GFR Estimate 76 >60 [place] mL/min/1.[address] Comment: Non GFR Calc GFR Estimate If Black >90 >60 mL/min/1.7m2 F [facility] GFR Calc HOSP ITAL Calcium 8.9 8.5 - 10.1 mg/dL [facility] Specimen Anatomical Collection Method Collection Time Receive d Time (Source) Location / / Volume Laterality Blood specimen 07/25/2016 7:30 PM 017 7:45 (specimen) CDT PM CDT King Armendariz MD LAB - BLOOD ORDERABLES Performing Organization Address City/State/ZIP Code Phon e Number [place] [address] [address] [facility] [address] [phone] CBC (platelets, no diff) (07/25/2016 7:30 PM CDT) athologist Signature WBC 9.5 4.0 - 11.0 [place] 10e9/L [facility] RBC Count 4.65 3.8 - 5.2 [place] 10e12/L [facility] Hemoglobin 13.8 11.7 - [place] 15.7 g/dL [facility] Hematocrit 41.5 35.0 - [place] 47.0 % [facility] MCV 89 78 - 100 [facility] MCH 29.7 26.5 - [place] 33.0 pg [facility] MCHC 33.3 31.5 - [place] 36.5 g/dL [facility] RDW 11.9 10.0 - [place] 15.0 % [facility] Platelet Count 282 150 - 450 [place] 10e9/L [facility] Specimen Anatomical Collection Method Collection Time Receive d Time (Source) Location / / Volume Laterality Blood specimen 07/25/2016 7:30 PM 017 7:45 (specimen) CDT PM CDT King Armendariz MD LAB - BLOOD ORDERABLES Performing Organization Address City/[facility]/ZIP Code Phon e Number [facility] [address] [address] [facility] [address] [place] [address] [facility] [phone] EKG 12 lead (07/25/2016 6:23 PM CDT) [facility] gist Method Time Signature Interpretation ECG Click View RADIOLOGY Image link RESULTS to view waveform and result Specimen (Source) Anatomical Collection Method Collection Time Re ceived Time Location / / Volume Laterality 07/25/2016 6:23 PM CDT Jennifer Meneses MD ECG ORDERABLES Performing Organization Address City/[facility] Phon e Number RADIOLOGY RESULTS CT Abdomen Pelvis w Contrast (07/25/2016 5:51 PM CDT) Anatomical Region Laterality Modality Abdomen/Pelvis, SUBRAD CT BODY, UMP CT ABDOMEN PELVIS Computed Tomography Specimen (Source) Anatomical Location Collection Method / Collectio n Time Received Time / Laterality Volume Impressions 07/25/2016 6:37 PM CDT IMPRESSION: 1. Prominent anterior abdominal and pelv ic wall hernia containing loops of small bowel. This results in a small bowel obstruction. 2. Colonic diverticulosis with no eviden ce of diverticulitis. BECCA WICK MD Narrative 07/25/2016 6:[address] ABDOMEN AND PELVIS WITH CONTRAST ??07/25/2016 5:51 PM HISTORY: Abdominal pain. COMPARISON: None. TECHNIQUE: Routine transverse CT imaging of the abdomen and pelvis was performed following the uneventful admin istration of 91mL Isovue-370 intravenous contrast. Radiation dose for this scan was reduced using automated exposure control, adjustment o f the mA and/or kV according to patient size, or iterative reconstruc tion technique. FINDINGS: The visualized lung bases are clear. The liver, spleen, pancreas, gallbladder, adrenal glands, k idneys, and bladder are normal. No enlarged lymph node or other abnormal mass is demonstrated. No free fluid is seen. No free intraperi toneal gas is identified. There are numerous diverticula throughou t the colon with no evidence of diverticulitis. There is a prominent anterior lower abdomen and upper pelvic wall hernia containing loop s of small bowel. The small bowel proximal to this is mildly distend ed measuring just over 3 cm in diameter and is fluid and gas filled. Th e bowel distal to this site appears to be decompressed. No other gas trointestinal tract pathology is noted. There is a normal-appearing ap pendix. There is calcification in the vascular structures. There are de generative changes in the spine. No other osseous abnormality is n oted. No abdominal or pelvic wall pathology is demonstrated. Procedure Note Becca Wick MD - 07/25/2016Fo rmatting of this note might be different from the original. CT ABDOMEN AND PELVIS WITH CONTRAST 2016 5:51 PM HISTORY: Abdominal pain. COMPARISON: None. TECHNIQUE: Routine transverse CT imaging of the abdomen and pelvis was performed following the uneventful admin istration of 91mL Isovue-370 intravenous contrast. Radiation dose for this scan was reduced using automated exposure control, adjustment o f the mA and/or kV according to patient size, or iterative reconstruc tion technique. FINDINGS: The visualized lung bases are clear. The liver, spleen, pancreas, gallbladder, adrenal glands, k idneys, and bladder are normal. No enlarged lymph node or other abnormal mass is demonstrated. No free fluid is seen. No free intraperi toneal gas is identified. There are numerous diverticula throughou t the colon with no evidence of diverticulitis. There is a prominent anterior lower abdomen and upper pelvic wall hernia containing loop s of small bowel. The small bowel proximal to this is mildly distend ed measuring just over 3 cm in diameter and is fluid and gas filled. Th e bowel distal to this site appears to be decompressed. No other gas trointestinal tract pathology is noted. There is a normal-appearing ap pendix. There is calcification in the vascular structures. There are de generative changes in the spine. No other osseous abnormality is n oted. No abdominal or pelvic wall pathology is demonstrated. IMPRESSION: 1. Prominent anterior abdominal and pelv ic wall hernia containing loops of small bowel. This results in a small bowel obstruction. 2. Colonic diverticulosis with no eviden ce of diverticulitis. BECCA WICK MD Jennifer Meneses MD IMG CT ORDERABLES Lactic acid whole blood (07/25/2016 4:41 PM CDT) athologist Signature Lactic Acid 1.1 0.7 - 2.1 [place] mmol/L [facility] Specimen Anatomical Collection Method Collection Time Receive d Time (Source) Location / / Volume Laterality Blood specimen 07/25/2016 4:41 PM 017 4:56 (specimen) CDT PM CDT Jennifer Meneses MD LAB - BLOOD ORDERABLES Performing Organization Address City/State/ZIP Code Phon e Number [place] [address] [phone] documented in this encounter Visit Diagnoses Diagnosis Small bowel obstruction (H) Unspecified intestinal obstruction Incarcerated ventral hernia Ventral hernia, unspecified, with obstru ction Nausea, vomiting, and diarrhea documented in this encounter Administered Medications Inactive Administered Medications - up to 3 most recent administrations Medication Order MAR Action Action Date Dose Rate Site 0.9% sodium chloride BOLUS New Bag 07/25/2016 4:46 PM CDT 1,000 mLs 1000 mL/hr Intravenous, 1,000 mL, ONCE, at 1,000 mL/hr, Administer over 1 Hours, On Sat07/25/16 at 1629, For 1 dose 0.9% sodium chloride BOLUS New Bag 07/25/2016 5:41 PM CDT 63 mLs Intravenous, 1,000 mL, ONCE, On Sat07/25/16 at 1741, For 1 dose 0.9% sodium chloride infusion New Bag 07/25/2016 5:59 PM CDT 1,000 mLs 125 mL/hr at 125 mL/hr, Intravenous, CONTINUOUS, Administer after the bolus., Starting on Sat07/25/16 at 1629, Until Lluvia 07/26/16 at 0050 HYDROmorphone (PF) (DILAUDID) injection 0.5 Given 07/25/2016 7:29 PM CDT 0.5 mg mg 0.5 mg, Intravenous, ONCE, On Sat07/25/16 at 1902, For 1 dose iopamidol (ISOVUE-370) solution 500 mL Given 07/25/2016 5:41 PM CDT 91 mLs 500 mL, Intravenous, ONCE, On Sat07/25/16 at 1741, For 1 dose lidocaine (LMX4) kit Topical, EVERY 1 HOUR PRN, pain, with VA D insertion or accessing implanted port,, Starting on Sat07/25/16 at 1627, For 1 do se, Do NOT give if patient has a history of allergy to any local anesthetic or any amy product. Apply 30 minutes prior to VAD insertion or port access. MAX Dose: 2.5 g (?? of 5 g tube) lidocaine 1 % 1 mL 1 mL, Other, EVERY 1 HOUR PRN, mild pain with VAD insertion or accessing implanted port,, Starting on Sat07/25/16 at 1627, Do NOT give if patient has a history of allergy to any local anesthetic or any amy product. MAX dose 1 mL subcutaneous OR intradermal in divided doses. lidocaine inhalant 4% nebulizer solution 3 mL Given 07/25/2016 9:17 PM CDT 3 mLs 3 mL, Nebulization, ONCE, On Sat07/25/16 at 2033, For 1 dose LORazepam (ATIVAN) injection 1 mg Given 07/25/2016 9:20 PM CDT 1 mg 1 mg, Intravenous, ONCE, On Sat07/25/16 at 2033, For 1 dose, For IV PUSH: Dilute with equal volume of NS. morphine (PF) injection 4 mg Given 07/25/2016 5:54 PM CDT 4 mg 4 mg, Intravenous, EVERY 15 MIN PRN, moderate to severe pain, Starting on Sat07/25/16 at 1628, For 3 doses ondansetron (ZOFRAN) injection 4 mg Given 07/25/2016 5:54 PM CDT 4 mg 4 mg, Intravenous, EVERY 30 MIN PRN, nausea, vomiting, Administer over 2-5 Minutes, Starting on Sat07/25/16 at 1628, For 3 doses, May repeat in 30 minutes as needed, up to 3 doses. Irritant. sodium chloride (PF) 0.9% PF flush 3 mL 3 mL, Intracatheter, EVERY 1 HOUR PRN, l ine flush, Starting on Sat07/25/16 at 1627, for peripheral IV flush post IV meds sodium chloride (PF) 0.9% PF flush 3 mL 3 mL, Intracatheter, EVERY 8 HOURS, Firs t dose on Sat07/25/16 at 1629, And Q1H PRN, to lock peripheral IV dormant line. documented in this encounter Active and Recently Administered Medications Times are shown in CDT. Scheduled Medication Order 07/23/2016 07/24/2016 07/25/2016 0.9% sodium chloride BOLUS (COMPLETED) 1646 (New Bag - Provider: Sugar Taylor RN)1803 (Stopped - Provider: Eileen Sevilla RN) Intravenous, 1,000 mL, ONCE, at 1,000 mL /hr, Administer over 1 Hours, Sat07/25/16 at 1629, For 1 dose 0.9% sodium chloride BOLUS (COMPLETED) 174 (New Bag - Provider: Jeanne Em)174 (Stopped - Provider: Jeanne Em) Intravenous, 1,000 mL, ONCE, Sat07/25/16 at 1741, For 1 dose HYDROmorphone (PF) (DILAUDID) injection 0.5 mg (COMPLETED) 192 (Given - Provider: Cally Hinton RN) 0.5 mg, Intravenous, ONCE, 1 dose, Sat07/25/16 at 1902 iopamidol (ISOVUE-370) solution 500 mL (COMPLETED) 1740 (Given - Provider: Jeanne Em) 500 mL, Intravenous, ONCE, Sat07/25/16 at 1741, For 1 dose lidocaine inhalant 4% nebulizer solution 3 mL (COMPLETED) 2116 (Given - Provider: Jamila Velasco RT) 3 mL, Nebulization, ONCE, On Sat07/25/16 at 203, For 1 dose LORazepam (ATIVAN) injection 1 mg (COMPLETED) 2119 (Given - Provider: Cally Hinton, JOHNATHAN) 1 mg, Intravenous, ONCE, On Sat07/25/16 a t 2032, For 1 dose, For IV PUSH: Dilute with equal volume of NS. sodium chloride (PF) 0.9% PF flush 3 mL 1629 (Canceled Entry - Provider: Orders Generic Provider - Comment: Automatically canceled at discontinue of medication order) 3 mL, Intracatheter, EVERY 8 HOURS, Firs t dose on Sat07/25/16 at 1629, And Q1H PRN, to lock peripheral IV dormant line. Continuous Medication Order 07/23/2016 07/24/2016 07/25/2016 0.9% sodium chloride infusion 17 59 (New Bag - Provider: Eileen [place], RN) at 125 mL/hr, Intravenous, CONTINUOUS, A dminister after the bolus., Starting Sat07/25/16 at 1629, Until Lluvia 07/26/16 at 0050 PRN Medication Order 07/23/2016 07/24/2016 07/25/2016 lidocaine (LMX4) kit Topical, EVERY 1 HOUR PRN, pain, with VA D insertion or accessing implanted port,, Starting Sat07/25/16 at 1627, For 1 dose, Do NOT give if patient has a history of allergy to any local anesthetic or any amy product. Apply 30 minutes prior to VAD insertion or port access. MAX Dose: 2.5 g (?? of 5 g tube) lidocaine 1 % 1 mL 1 mL, Other, EVERY 1 HOUR PRN, mild pain with VAD insertion or accessing implanted port,, Starting Sat07/25/16 at 1627, Do NOT give if patient has a history of allergy to any local anesthetic or any dino ne product. MAX dose 1 mL subcutaneous OR intradermal in divide d doses. morphine (PF) injection 4 mg 175 4 (Given - Provider: Eileen Sevilla, RN) 4 mg, Intravenous, EVERY 15 MIN PRN, Sta rting Sat07/25/16 at 1628, For 3 doses, moderate to severe pain ondansetron (ZOFRAN) injection 4 mg 1754 (Given - Provider: Eileen [place]villa, RN) 4 mg, Intravenous, EVERY 30 MIN PRN, gabino sea, vomiting, Administer over 2-5 Minutes, Starting Sat07/25/16 at 1628, For 3 doses, May repeat in 30 minutes as needed, up to 3 doses. Irritant. sodium chloride (PF) 0.9% PF flush 3 mL 3 mL, Intracatheter, EVERY 1 HOUR PRN, l ine flush, Starting 07/25/16 at 1627, for peripheral IV flush post IV meds documented in this encounter Care Teams Reading Interventionist Relationship Specialty Start Date End Date [facility] PCP - General 01/27/16 10/06/20 [address] [place] [address] documented as of this encounter
--- OUTSIDE RECORDS SUMMARY | 2022-02-20 21:14 | XMS_ITS | Encounter Summary ---
:1945 Author Organization [place] Address [facility] [place] [address] Care Team Providers Name Role Phone [facility] Primary Care Provider [phone] Ivis Akers DO Unavailable [phone] Yesenia Granger MD Unavailable Eloise Malave MD Primary Care Provider Ayala Lemos APRN COMPENSATION MANAGER Unavailable [phone] Malina Parra MD Unavailable Tiffanie Lomeli PA-C Unavailable [phone] Ivis Akers DO Unavailable [phone] Encounter Details Date Type Department Care Team Description 11/19/2016 Records - [facility] CONVERSION Scan, Non-Provider [...] Office Visit Cardiology Jorge Luis Akers DO [address] [facility] [facility] [address] [place], [place] [address] (Wo rk) documented as of this encounter Visit Diagnoses Not on filedocumented in this encounter Care Teams Assembler Truck Trailer Relationship Specialty Start Date End Date [facility] PCP - General 01/27/16 1 Medical [address] [place] [address] Eloise Malave MD PCP - General Family Medicine 10/07/20 [facility]ICAL [facility] [address] [place], [place] [id number] Ivis Akers Assigned Heart and 02/12/2010/01 DO Shira Vascular Provider [address] [place] [address] Yesenia Granger Assigned Surgical 03/13/20 2 MD Crow Provider [address] [facility] [address] [place] [address] Ayala Lemos, Assigned Heart and 10/02/20 LAPEL BASTER COMPENSATION MANAGER Vascular Provider [address] [place] [address] Malina Parra Assigned Sleep 11/27/20 12/31/20 MD Gio Provider [address] [place] [address] Tiffanie Lomeli Assigned Sleep 01/01/21 RAOUL Garcia Provider [address] [place] [address] Ivis Akers MD Cardiovascular Disease 01/05/22 DO Shira [address] [place] [address] documented as of this encounter
--- OUTSIDE RECORDS SUMMARY | 2022-02-20 21:15 | XMS_ITS | Clinical Summary ---
:1945 Author Organization [employer] llian Affiliates [place] [address] Care Team Providers Name Role Phone Ginny Walker NP Unavailable Eloise Malave MD Primary Care Provider Clarisse Barrios RN Unavailable Allergies Active Allergy Reactions Severity Noted Date Comments Amoxicillin Nausea Only 07/16/2007 Sulfa (Sulfonamide Rash, Throat High 07/07/2007 Antibiotics) Swelling/Closing Medications Medication Sig Dispensed Refills Start Date End Date Status acetaminophen Take 1,000 mg by 0 Active (TYLENOL EXTRA mouth every 6 hours STRGTH) 500 mg tablet if needed. Max acetaminophen dose: 4000mg in 24 hrs. polyethylene glycoL Take 17 g by mouth 0 02/26/2017 Active (MIRALAX) 17 2 times daily. gram/dose powder cholecalciferol Take 1,000 Units by 0 Active (VITAMIN D) 1,000 mouth 2 times unit tablet daily. Graduated Compression 20-30 mmHg knee 3 Packet 3 08/15/2020 Active StockingsIndications: high compression Leg edema stockings. Wear as directed. escitalopram oxalate Take with 10mg 90 Tablet 1 07/20/2021 Active (LEXAPRO) 5 mg tablet daily for a tabletIndications: total of 15mg Anxiety daily. potassium chloride TAKE 1 CAPSULE 90 Capsule 2 08/08/2021 Active (MICRO-K) 10 mEq EVERY DAY WITH A Controlled-release MEAL capsuleIndications: Hypokalemia famotidine (PEPCID) TAKE 1 TABLET TWICE 180 Tablet 2 2 Active 20 mg DAILY tabletIndications: Gastro-esophageal reflux disease without esophagitis Docosahexanoic Take 1 g by mouth. 0 Active Acid-Eicosapent 120-180 mg cap simvastatin (ZOCOR) TAKE ONE TABLET BY 90 Tablet 2 11/27/2021 Active 40 mg MOUTH AT BEDTIME tabletIndications: Mixed hyperlipidemia escitalopram oxalate Take 1 Tablet (10 90 Tablet 1 12/20/2021 Active (LEXAPRO) 10 mg mg) by mouth every tabletIndications: morning. Anxiety furosemide (LASIX) 20 Take 1 Tablet (20 90 Tablet 2 12/20/2021 Active mg tabletIndications: mg) by mouth once Essential daily. hypertension, benign metoprolol succinate Take 1 Tablet (50 90 Tablet 2 12/20/2021 Active (TOPROL XL) 50 mg mg) by mouth once sustained-release daily. tabletIndications: Essential hypertension, benign rivaroxaban (XARELTO) Take 1 Tablet (20 90 Tablet 3 12/20/2021 Active 20 mg mg) by mouth once tabletIndications: PE daily with evening (pulmonary meal. 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 Patient has identified Health Care Agent (s): Yes Add Health Care Agents: Yes Health Care Agent(s): Primary Health Care Agent: Nel Chappell Relationship: Daughter Secondary Health Care Agent: Aman Cheema Relationship: Son ; [phone] Conservator: Relationship: Phone: Guardian: Relationship: Phone: Patient has Advance Care Plan Documents (Health Care Directive, POLST): No, Health Care Packet given to patient and declined. Patient has identified Specific Treatmen t Preferences: No Specific limits to treatment preferences NOT identified: ASSUME FULL TREATMENT. Primary osteoarthritis of right knee 09/08/2014 Esophageal reflux Overview: Gastroesophageal Reflux Gastro-esophageal reflux disease without esophagitis Essential hypertension Hearing loss Overview: wears hearing aids HTN (hypertension) Mixed hyperlipidemia Resolved Problems Problem Noted Date Resolved Date Malignant neoplasm of left breast in female, estrogen 201808/16/2021 receptor positive Cancer Staging: Clinical stage from 2018: Stage IA (cT1b, cN0, cM0, G2, ER+, ND+, HER2-) - Signed by Gael Hammond MD on 08/26/2018 Pathologic stage from 10/02/2018: Stage I A (pT1a, pN0(sn), cM0, G2, ER+, ND+, HER2-) - Signed by Gael Hammond MD on 10/02/2018 Breast cancer 04/22/2018 08/16/2021 Overview: breast Fluid overload 02/08/2017 01/26/2022 S/P laparotomy 02/08/2017 01/26/2022 Hypokalemia 10/02/2016 01/26/2022 S/P repair of incancerated ventral hernia on 07/27/[address] Almaraz 09/29/2016 01/26/2022 Sneider Abscess of postoperative wound of abdominal wall 09/17/2016 01/26/2022 DVT of leg (deep venous thrombosis) 08/31/201611/21 S/P repair of incarcerated ventral hernia 07/28/15 7 01/26/2022 Postoperative wound infection and dehiscence 08/10/2016 01/26/2022 Small bowel obstruction 10/23/2014 01/26/2022 Aftercare following right knee joint replacement surgery 04/201401/26/2022 CHF (congestive heart failure) 09/14/2014 7 Hyponatremia 09/09/2014 01/26/2022 Unspecified essential hypertension 01/26 Pure hypercholesterolemia 01/26/2022 Unspecified cataract 01/26/2022 Overview: left Encounters Date Type Specialty Care Team Description 02/20/2022 Travel 02/20/2022 Nurse Triage Eloise Malave MD Bleeding 02/01/2022 Orders Only Scanner <No scans attac hed> 02/01/2022 Orders Only Scanner <No scans attac hed> 01/27/2022 Telephone Eloise Malave MD Referral (AMB CONSULT TO PEDIATRIC HEMATOLOGY/ONCO LOGY) 01/26/2022 Office Visit Eloise Malave MD Follow U p (Lab work that was done at [facility] according to the patient. ); Medication List Update (Tariq ayala is not sure if she francine es Docosahexanoic Acid-Eicosapent 120-180 mg cap or Lexapro) ; Immunization/In jection 01/26/2022 Travel 12/21/2021 Telephone Gerri Briscoe Appoin tment Request (PNE) PA 12/20/2021 Office Visit Eloise Malave MD Medicare ANNUAL (subsequent) Visit (--not fa sting) 12/20/2021 Travel 12/12/2021 Office Visit Safia Hardiwck MD Hospit al F/U 12/12/2021 Travel 12/08/2021 Telephone Eloise Malave MD Appointm ent Request 12/07/2021 Orders Only <No scans attac hed> 12/07/2021 Orders Only Scanner <No scans attac hed> 12/07/2021 Nurse Triage Eloise Malave MD Difficul ty Breathing 12/05/2021 Office Visit Guy You Procedu re (Right L5-S1 TFESI) 11/30/2021 Office Visit Halle Jeong, [employer] Derm P roblem (Left foot) 11/30/2021 Travel 11/28/2021 Office Visit Guy You Cancele d (Patient) 11/28/2021 Telephone Guy You PROCEDU RE TODAY 11/27/2021 Office Visit Sugey Sesay Reche ck (Right Ear Wax PA Removal) 11/27/2021 Travel 11/24/2021 Refill Eloise Malave MD Refill R equest (Simvastatin) 11/22/2021 Telephone Guy You, [facility] teo [place] from Last 3 Months Immunizations Name Administration Dates Next Due COVID-19 vaccine (Moderna 07/15/2020, 06/17/2020 100mcg/0.5mL) PF, MDV COVID-19 vaccine ([employer] 01/26/2022 30mcg/0.3mL) 12YO+ BIVALENT BOOSTER PF, MDV Influenza, High-dose Inactivated 01/24/2019, 01/16/2018, , 01/02/2016, 02/05/2015, 02/08/2014, 04/17/2013, 03/05/2012 Influenza, High-dose Quadrivalent 02/24/2021, 01/22/2020 Inactivated Influenza, IIV3 (Age 6-35 mos) 01/15/2009 Influenza, IIV3 (Age >=3 years) 03/02/2011 Influenza, Inactivated AIIV4 (Age 65+ 01/26/2022 Years) Preserv Free Pneumococcal Poly,23-Valent 08/14/2011 (Pneumovax) Pneumococcal conj 13-Valent (Prevnar 06/15/2015 13) Td, Preservative Free (age >= 7 11/01/2018 Years) Tdap, Unspecified 08/12/2008 Zoster (Shingrix-RZV, recombinant) 08/31/2021, 12/10/2020 Family History Medical History Relation Name Comments Cancer-prostate Brother doing well Diabetes Brother Hyperlipidemia Brother Diabetes Father Heart Disease Father Hypertension Father Cancer Mother stomach cancer, and htn, cad, hld Coronary artery disease Mother Hyperlipidemia Mother Hypertension Mother Diabetes Other 1 father and broth er Cancer-pancreatic Other 2 maternal cousi n Cancer-prostate Son doing well Cancer-breast No Family History Cancer-ovarian No Family History Relation Name Status Comments Brother Father Mother Other 1 Other 2 Son Social History Tobacco Use Types Packs/Day Years Used Date Never Smoker Smokeless Tobacco: Never Used Comments: no exposure Alcohol Use Standard Drinks/Week Comments Yes 0 (1 standard drink = 0.6 oz pure alcoho l) 1 drink weekly Alcohol Habits Answer Date Recorded How often do you have a drink containing alcohol? Not asked How many drinks containing alcohol do you have on a Not aske d typical day when you are drinking? How often do you have six or more drinks on one Not asked occasion? Comment: 1 drink weekly 01/24/2017 Sex Assigned at Date Recorded Not on file COVID-19 Exposure Response Date Recorded In the last 10 days, have you been in contact with No / Unsu re 02/20/2022 6:50 PM CDT someone who was confirmed or suspected to have Coronavirus/COVID-19? Obstetrics History Para Term AB IAB SAB Ectopic Multiple Living Live Births 3 3 Date Outcome GA Total Labor/2nd/3rd Weight Sex Delivery Anes PTL Samara A 1 A5 Name Clin Labor Para Para Para Last Filed Vital Signs Vital Sign Reading Time Taken Comments Blood Pressure 110/70 01/26/2022 11:11 AM CDT Pulse 57 01/26/2022 11:11 AM CDT Temperature 36.1 ??C (97 ??F) 12/12/2021 10:40 AM CDT Respiratory Rate 18 12/12/2021 10:40 AM CDT Oxygen Saturation 96% 01/26/2022 11:11 AM CDT Inhaled Oxygen Concentration - - Weight 83.7 kg (184 lb 9.6 oz) 12/20/2021 4:33 PM CDT Height 154.5 cm (5' 0.83) 07/04/2021 10:16 AM CDT Body Mass Index 35.08 07/04/2021 10:16 AM CDT Plan of Treatment Health Maintenance Due Date Last Done Comments BMI (ht and wt on same 07/04/2022 07/04/2021, 07/22/2020, day) for age 18+ 08/25/2018, Additional history exists Medicare Wellness for age 0812/20/2022 12/20/2021, 07/22/2020 65+ Depression screening for 12/21/2022 12/21/2021, 12/20/2021, age 12+ 07/25/2020, Additional history exists Tetanus booster 11/01/2028 11/01/2018, 08/12/2008 Tdap Completed 08/12/2008 Pneumococcal series for Completed 06/15/2015, 08/14/2011 age 65+ DEXA/DXA scan for age 65+ Addressed 07/28/2018 (Verified i n Overridden with the Care Everywhere or intention of not Patient Record) completing the t opic Zoster (shingles) series Completed 08/31/2021, 12/10/2020 for age 50+ COVID-19 vaccine series Completed 01/26/2022, 03/15/2021, 07/15/2020, Additional history exists Hepatitis C screening for Completed 01/26/2022 age 18-79 Influenza for age 65+ Completed 01/26/2022, 02/24/2021, 01/22/2020, Additional history exists Medical Devices Implanted Type Area [employer] Device Shelf Model / Identifier Expiration Serial / Lot Date Lens Iol Clear Flex C 19.0 Dioptic Clrflxc-19.0 - [id number] Left: Eye ADVANCED [id number]-19.0# / Implanted: Qty: 1 on 07/17/2007 at [facility] [id number] / SUPPLIES Insert Knee Sz3 11mm Triathloncruc Ret X3 - [id number] Rig ht: Milagros 03/21/2019 [id number]# / Implanted: Qty: 1 on 09/08/2014 by Josue Landin MD at [facility] Knee Orthopaedics / [id number] Mesh Ventral [id number] Phasix - [id number] N/A: [employer] 04/18/2018 [id number] / Implanted: Qty: 1 on 09/19/2016 by Aly Vasquez MD a t [facility] Abdomen / [id number] Explanted Type Area [employer] Device Shelf Model / Identifier Expiration Serial / Date Lot Mesh Ventral [id number] Ventralight St - [id number] N/A: Abdome n [employer] 08/17/2017 [id number] / Implanted: Qty: 1 on 07/26/2016 by Aly Vasquez MD at [facility] [id number] / Explanted: Qty: 1 on 09/19/2016 by Aly Vasquez MD at [facility] [id number] Procedures Procedure Name Priority Date/Time Associated Diagnosis Comme nts SCAN 02/01/2022 12:00 Results for this CORRESP-LABORATORY AM CDT procedure are in RESULTS the results section. SCAN 02/01/2022 12:00 Results for this CORRESP-DIAGNOSTICS AM CDT procedur e are in the results section. ANTI HCV Routine 01/26/2022 12:25 Encounter for Results fo r this PM CDT hepatitis C screening proced ure are in test for low risk the result s patient section. CBC WITH AUTO Routine 12/20/2021 12:55 Mixed hyperlipidemia Re sults for this DIFFERENTIAL PM CDT procedure are i n the results section. TSH Routine 12/20/2021 12:55 Mixed hyperlipidemia Res ults for this PM CDT procedure are i n the results section. LIPID PANEL W REFLEX Routine 12/20/2021 12:55 Mixed hyperlipid emia Results for this MEASURED LDL PM CDT procedure are i n the results section. COMP METABOLIC PANEL Routine 12/20/2021 12:55 Mixed hyperlipid emia Results for this PM CDT procedure are i n the results section. CBC WITH AUTO Routine 12/20/2021 12:55 Mixed hyperlipidemia Re sults for this DIFFERENTIAL PM CDT procedure are i n the results section. ECHO COMPLETE WO Routine 12/07/2021 4:45 Ischemia Results for this CONTRAST PM CDT Hypoxia procedure are i n the results section. SCAN-RADIOLOGY 12/07/2021 12:00 Results f or this REPORT AM CDT procedure are i n the results section. AMB EPIDURAL STEROID Routine 12/05/2021 12:00 Lumbar radiculop athy Results for this INJECTION AM CDT procedure are i n the results section. from Last 3 Months Results SCAN CORRESP-LABORATORY RESULTS (02/01/2022 12:00 AM CDT) Narrative This result has an attachment that is no t available. Scanner OTHER SCAN CORRESP-DIAGNOSTICS (02/01/2022 12:00 AM CDT) Narrative This result has an attachment that is no t available. Scanner OTHER ANTI HCV (01/26/2022 12:25 PM CDT) [facility] Method Time Signature HEPATITIS C Non-Reacti Non-Reacti 01/27/2022 [facility] ANTIBODY ve ve 6:46 PM CDT [facility] Comment: Antibodies to HCV not detected; does not exclude the possibility of exposure to HCV. Specimen Anatomical Collection Method / Collection Time Recei hang Time (Source) Location / Volume Laterality Blood BLOOD SPECIMEN / Venipuncture / 01/26/2022 12:25 01/26 Unknown Unknown PM CDT 12:30 PM CDT Eloise Malave MD SEND OUTS Performing Organization Address City/State/ZIP Code Phon e Number [facility] [address] [place] [address] LABORATORY-CENTRAL 1999 LABORATORY CBC WITH AUTO DIFFERENTIAL (12/20/2021 12:55 PM CDT) P athologist Signature WHITE BLOOD 6.1 4.5 - 11.0 12/20/2021 [facility] COUNT thou/cu mm 12:59 PM CDT [facility] RED BLOOD COUNT 4.27 4.00 - 12/20/2021 [facility] 5.20 12:59 PM CDT [place] mil/cu mm [facility] HEMOGLOBIN 13.1 12.0 - 12/20/2021 [facility] 16.0 g/dL 12:59 PM CDT [facility] HEMATOCRIT 39.4 33.0 - 12/20/2021 [facility] 51.0 % 12:59 PM CDT [facility] MCV 92 80 - 100 12/20/2021 [facility] fL 12:59 PM CDT [facility] MCH 30.7 26.0 - 12/20/2021 [facility] 34.0 pg 12:59 PM CDT [facility] MCHC 33.2 32.0 - 12/20/2021 [facility] 36.0 g/dL 12:59 PM CDT [facility] RDW 11.8 11.5 - 12/20/2021 [facility] 15.5 % 12:59 PM CDT [facility] PLATELET COUNT 282 140 - 440 12/20/2021 [facility] thou/cu mm 12:59 PM CDT [facility] MPV 8.7 6.5 - 11.0 12/20/2021 [facility] fL 12:59 PM CDT [facility] NRBC 0.0 % 12/20/2021 [facility] 12:59 PM CDT [facility] ABS NRBC 0.0 thou /cu 12/20/2021 [facility] mm 12:59 PM CDT [facility] % NEUT 67.6 % 12/20/2021 [facility] 12:59 PM CDT [facility] % LYMPH 19.2 % 12/20/2021 [facility] 12:59 PM CDT [facility] % MONO 8.0 % 12/20/2021 [facility] 12:59 PM CDT [facility] % EOS 4.3 % 12/20/2021 [facility] 12:59 PM CDT [facility] % BASO 0.7 % 12/20/2021 [facility] 12:59 PM CDT [facility] % IMMATURE GRAN 0.2 % 12/20/2021 [facility] (METAS,MYELOS,ND 12:59 PM CDT [facility] ABSOLUTE 4.1 1.7 - 7.0 12/20/2021 [facility] NEUTROPHILS thou/cu mm 12:59 PM CDT [facility] ABSOLUTE 1.2 0.9 - 2.9 12/20/2021 [facility] LYMPHOCYTES thou/cu mm 12:59 PM CDT [facility] ABSOLUTE 0.5 <0.9 12/20/2021 [facility] MONOCYTES thou/cu mm 12:59 PM CDT [facility] ABSOLUTE 0.3 <0.5 12/20/2021 [facility] EOSINOPHILS thou/cu mm 12:59 PM CDT [facility] ABSOLUTE 0.0 <0.3 12/20/2021 [facility] BASOPHILS thou/cu mm 12:59 PM CDT [facility] ABSOLUTE 0.0 <0.3 12/20/2021 [facility] IMMATURE thou/cu mm 12:59 PM CDT [place] GRANULOCYTES([facility] ,MYELOS,PROS) Specimen Anatomical Collection Method / Collection Time Recei hang Time (Source) Location / Volume Laterality Blood BLOOD SPECIMEN / Venipuncture / 12/20/2021 12:55 12/20 Unknown Unknown PM CDT 12:54 PM CDT Eloise Malave MD HEMATOLOGY Performing Organization Address City/State/ZIP Code Phon e Number [facility] [address] [place], [place] [address] [facility]IC LIPID PANEL W REFLEX MEASURED LDL (12/20/2021 12:55 PM CDT) [facility] Method Time Signature CHOLESTEROL,TOTAL 174 100 - 199 12/21/2021 [facility] mg/dL 7:30 AM CDT [facility] TRIGLYCERIDES 108 <150 12/21/2021 [facility] mg/dL 7:30 AM CDT [facility] HDL CHOLESTEROL 55 >40 mg/dL 12/21/2021 [facility] 7:30 AM CDT [facility] NON-HDL 119 <145 12/21/2021 [facility] CHOLESTEROL mg/dl 7:30 AM CDT [facility] CHOL/HDL RATIO 3.16 <4.50 12/21/2021 [facility] 7:30 AM CDT [facility] LDL CHOLESTEROL 97 <=130 12/21/2021 [facility] mg/dL 7:30 AM CDT [facility] VLDL CHOLESTEROL 22 <=30 12/21/2021 [facility] mg/dL 7:30 AM CDT [facility] PROVIDER ORDERED RANDOM 12/21/2021 [facility] STATUS 7:30 AM CDT [facility] Specimen Anatomical Collection Method / Collection Time Recei hang Time (Source) Location / Volume Laterality Blood BLOOD SPECIMEN / Venipuncture / 12/20/2021 12:55 12/20 Unknown Unknown PM CDT 12:54 PM CDT Eloise Malave MD CHEMISTRY Performing Organization Address City/State/ZIP Code Phon e Number [email or web address] [address] [place] [id number] LABORATORY-CENTRAL 2000 LABORATORY TSH (12/20/2021 12:55 PM CDT) P athologist Signature TSH 1.67 0.35 - 4.94 12/21/2021 [facility] [employer] uIU/mL 7:35 AM CDT LABORATORY-CENTR AL LABORATORY Specimen Anatomical Collection Method / Collection Time Recei hang Time (Source) Location / Volume Laterality Blood BLOOD SPECIMEN / Venipuncture / 12/20/2021 12:55 12/20 Unknown Unknown PM CDT 12:54 PM CDT Narrative [facility] LABORATORY-CENTRAL LABORAT ORY - 12/21/2021 7:35 AM CDT In Adults, TSH values between 5.00 and 10.00 uIU/ml do not necessarily indicate the presence of Hyp othyroidism. Correlation with clinical findings such as presence of goiter and/or Thyroperoxidase (TPO) Antibody ma y be helpful. For more information please refer to DK 20 04; 291: 228-238. Eloise Malave MD CHEMISTRY Performing Organization Address City/State/ZIP Code Phon e Number [email or web address] [address] [address] LABORATORY-CENTRAL 2000 LABORATORY (ABNORMAL) COMP METABOLIC PANEL (12/20/2021 12:55 PM CDT) Analysis Performed At Patho logist Time Signature SODIUM 139 135 - 145 12/21/2021 [facility] mmol/L 7:30 AM CDT [facility] POTASSIUM 4.8 3.5 - 5.0 12/21/2021 [facility] mmol/L 7:30 AM CDT [facility] CHLORIDE 102 98 - 110 12/21/2021 [facility] mmol/L 7:30 AM CDT [facility] CO2,TOTAL 27 21 - 31 12/21/2021 [facility] mmol/L 7:30 AM CDT [facility] ANION GAP 10 5 - 18 12/21/2021 [facility] 7:30 AM CDT [facility] GLUCOSE 90 65 - 100 12/21/2021 [facility] mg/dL 7:30 AM CDT [facility] CALCIUM 8.9 8.5 - 10.5 12/21/2021 [facility] mg/dL 7:30 AM CDT [facility] BUN 15 8 - 25 12/21/2021 [facility] mg/dL 7:30 AM CDT [facility] CREATININE 0.71 0.57 - 12/21/2021 [facility] 1.11 mg/dL 7:30 AM CDT [facility] BUN/CREAT RATIO 21 (H) 10 - 20 12/21/2021 [facility] 7:30 AM CDT [facility] ALBUMIN 4.0 3.2 - 4.6 12/21/2021 [facility] g/dL 7:30 AM CDT [facility] PROTEIN,TOTAL 7.0 6.0 - 8.0 12/21/2021 [facility] g/dL 7:30 AM CDT [facility] GLOBULIN 3.0 2.0 - 3.7 12/21/2021 [facility] g/dL 7:30 AM CDT [facility] A/G RATIO 1.3 1.0 - 2.0 12/21/2021 [facility] 7:30 AM CDT [facility] BILIRUBIN,TOTAL 0.7 0.2 - 1.2 12/21/2021 [facility] mg/dL 7:30 AM CDT [facility] ALK PHOSPHATASE 69 50 - 136 12/21/2021 [facility] IU/L 7:30 AM CDT [facility] ALT (SGPT) 13 8 - 45 12/21/2021 [facility] IU/L 7:30 AM CDT [facility] AST (SGOT) 19 2 - 40 12/21/2021 [facility] IU/L 7:30 AM CDT [facility] eGFR 88 (L) >90 12/21/2021 [facility] mL/min/1.7 7:30 AM CDT [facility]AT[facility] 3m2 TRAL LABORATORY Comment: As of 2021, eGFR is calcu lated by the CKD-EPI creatinine equation without race adjustment. eGFR can be inf luenced by muscle mass, exercise, and diet. The reported eGFR is an estimation only and is only applicable if the renal function is stable. Specimen Anatomical Collection Method / Collection Time Recei hnag Time (Source) Location / Volume Laterality Blood BLOOD SPECIMEN / Venipuncture / 12/20/2021 12:55 12/20 Unknown Unknown PM CDT 12:54 PM CDT Eloise Malave MD CHEMISTRY Performing Organization Address City/State/ZIP Code Phon e Number [email or web address] [address] [place] [address] LABORATORY-CENTRAL 1999 LABORATORY ECHO COMPLETE WO CONTRAST (12/07/2021 4:45 PM CDT) P athologist Signature AORTIC VALVE 6 mmHg MEAN PG EJECTION 79 % FRACTION PEAK TR 3.0 m/s VELOCITY LVEDD 3.7 cm Anatomical Region Laterality Modality HEART Ultrasound Specimen (Source) Anatomical Collection Method Collection Time Re ceived Time Location / / Volume Laterality 12/07/2021 4:15 PM CDT Narrative 12/08/2021 8:15 AM CDT ECHOCARDIOGRAM RACQUEL CHEEMA ? Accessi on#: ?? [id number] : ?1945 76 years Study Date: ?? 12/07/2021 4:15:53 PM Gender: F ?BP: ? 133/48 mmHg Height: 152.00 cm ?BSA: ?1.80 m? ?? Weight: 84.00 kg ? Tech: ? MCK ? Referring MD: CRYSTAL SOSA Site: ? [facility] Reading Location: [facility] Procedure: 2D, Color Doppler and Spectra l Doppler. Indication for study: Ischemia, hypoxia Cardiac Rhythm: Irregular.Study quality: Fair. Final Impressions: 1. Normal left ventricular size, modera tely increased wall thickness, hyperdynamic global systolic function, calculated EF of 79 %. 2. The mitral valve is sclerotic, trace mitral regurgitation. 3. Right ventricular cavity size is nor mal, global systolic RV function is moderately reduced with akinesis of the mid free wall concerning for pulmonary embolism (Hatch's sign). 4. Results discussed with Dr. Sosa at time of interpretation. Chamber Sizes and Function Normal left ventricular size, moderately increased wall thickness, hyperdynamic global systolic function, calculated EF of 79 %. Left atrial size is normal. Right ventricular cavity size is normal, glob al systolic RV function is moderately re duced. RV wall thickness is normal. The right atrium is normal. Right atrial volume index is 12 ml/m? ??. Right atrial area is 12 cm? ??. The pulmonary artery is of normal size and origin. The sinus of Valsalva is normal sized. The ascending aorta is normal sized. Valves, RV Pressures and Diastolic Funct ion The aortic valve is trileaflet, no steno sis and mild regurgitation. The mitral valve is sclerotic, trace mitral regurgitation. Normal diastolic function. The tricuspid valve is normal in structure. Tric uspid regurgitation is trace regurgitati on. The tricuspid regurgitant velocity is 3.0 m/s, the estimated right ventricular systolic pressure is 36 mmHg plus right atrial pressure. The pulmonic valve is normal. No pulmonary regurgitation. Masses, Effusion, Shunts There is no pericardial effusion. The in ferior vena cava is normal sized, respiratory size variation greater than 50%. No left to right shunting was detected by limited color flow Doppler interrogation of the interatrial septum. MEASUREMENTS AND CALCULATIONS 2-D Measurements and LV Function: LVID (d) 3.7 cm Planimetered EF 79 % LVID (s) 1.8 cm LV FS% (2D) ? 52 % IVS (d) ??1.4 cm LVOT diameter ?? 2.0 cm LVPW (d) 1.3 cm HR ?6 2 bpm Ao Sinus 3.3 cm LA Vol index ?26 ml/ m2 Asc Ao ?? 3.3 cm RA Vol index ?12 ml /m2 LA ? 4.1 cm RA area ? 1 2 cm?RV Max 4C (d) ?? 3.1 cm Diastology: Mitral ?Tissue Doppler E Peak 1.2 m/s ??e', Lateral ?0.11 m /s DT ? 148 msec IVRT ?? 72 msec Aortic Valve: Vmax ? 1.7 m/s ??NOEMI (V) ?? 1.66 cm? AI P 1/2 612 msec VTI ?0.37 m ?? NOEMI (I) ?? 1.69 cm? ?? LVOT V max 0.9 m/s ??Max PG ?12 mmHg LVOT VTI ?? 0.20 m ?? Mean PG ?? 6 mmHg SV ? 62 ml ?Dim Index 0.55 SV index ?? 34 ml/m? ?? CO ?3.8 l/min ?CI ?2.1 l/min/m? ?? Mitral Valve: MVA ?5.1 cm? ?? MV P 1/2 43 msec Tricuspid Valve and estimated PA pressur es: TR Vmax 3.0 m/s TR maxG 36 mmHg . This study was interpreted by an [facility] redited facility. CC: [facility] [place], Med/ Surg - IP [facility]. ??Final ?? Procedure Note Jose Goddard MD - 12/08/2021 ECHOCARDIOGRAM RACQUEL CHEEMA : 1945 76 years Study Date: 12/07 4:15:53 PM Gender: F BP: 133/48 mmHg Height: 152.00 cm BSA: 1.80 m? ?? Weight: 84.00 kg Tech: [facility] [place] Referring MD: CRYSTAL SOSA Site: [facility] Reading Location: [facility] Procedure: 2D, Color Doppler and Spectra l Doppler. Indication for study: Ischemia, hypoxia Cardiac Rhythm: Irregular.Study quality: Fair. Final Impressions: 1. Normal left ventricular size, modera tely increased wall thickness, hyperdynamic global systolic function, calculated EF of 79 %. 2. The mitral valve is sclerotic, trace mitral regurgitation. 3. Right ventricular cavity size is nor mal, global systolic RV function is moderately reduced with akinesis of the mid free wall concerning for pulmonary embolism (Hatch's sign). 4. Results discussed with Dr. Sosa at time of interpretation. Chamber Sizes and Function Normal left ventricular size, moderately increased wall thickness, hyperdynamic global systolic function, calculated EF of 79 %. Left atrial size is normal. Right ventricular cavity size is normal, global systolic RV function is moderately reduced. RV wa ll thickness is normal. The right atrium is normal. Right atrial volume index is 12 ml/m? ??. Right atrial area is 12 cm? ??. The pulmonary artery is of normal size and origin. The sinus of Valsalva is normal sized. The a scending aorta is normal sized. Valves, RV Pressures and Diastolic Funct ion The aortic valve is trileaflet, no steno sis and mild regurgitation. The mitral valve is sclerotic, trace mitral regurgitation. Normal diastolic function. The tricuspid valve is normal in structure. Tricuspid regurgitation is trace regurgitation. Th e tricuspid regurgitant velocity is 3.0 m/s, the estimated right ventricular systolic pressure is 36 mmHg plus right atrial pressure. The pulmonic valve is normal. No pulmonary regurgitation. Masses, Effusion, Shunts There is no pericardial effusion. The in ferior vena cava is normal sized, respiratory size variation greater than 50%. No left to right shunting was detected by limited color flow Doppler interrogation of the interatrial septum. MEASUREMENTS AND CALCULATIONS 2-D Measurements and LV Function: LVID (d) 3.7 cm Planimetered EF 79 % LVID (s) 1.8 cm LV FS% (2D) 52 % IVS (d) 1.4 cm LVOT diameter 2.0 cm LVPW (d) 1.3 cm HR 62 bpm Ao Sinus 3.3 cm LA Vol index 26 ml/m2 Asc Ao 3.3 cm RA Vol index 12 ml/m2 LA 4.1 cm RA area 12 cm? ?? RV Max 4C (d) 3.1 cm Diastology: Mitral Tissue Doppler E Peak 1.2 m/s e', Lateral 0.11 m/s DT 148 msec IVRT 72 msec Aortic Valve: Vmax 1.7 m/s NOEMI (V) 1.66 cm? ?? AI P 1/2 612 msec VTI 0.37 m NOEMI (I) 1.69 cm? ?? LVOT V max 0.9 m/s Max PG 12 mmHg LVOT VTI 0.20 m Mean PG 6 mmHg SV 62 ml Dim Index 0.55 SV index 34 ml/m? ?? CO 3.8 l/min CI 2.1 l/min/m? ?? Mitral Valve: MVA 5.1 cm? ?? MV P 1/2 43 msec Tricuspid Valve and estimated PA pressur es: TR Vmax 3.0 m/s TR maxG 36 mmHg . This study was interpreted by an [facility] acc redited facility. CC: [facility] [place], [facility]/ Surg - IP [facility]. Final Crystal Sosa MD ECHO ORD SCAN-RADIOLOGY REPORT (12/07/2021 12:00 AM CDT) Narrative This result has an attachment that is no t available. Scanner OTHER AMB EPIDURAL STEROID INJECTION (12/05/2021 12:00 AM CDT) Narrative This result has an attachment that is no t available. Guy You MD NEUROLOGY ORD from Last 3 Months Insurance Payer Benefit Plan / Subscriber ID Effective Phone Address T ype Group Dates MEDICARE PART MEDICARE PART B [id number] 2010-Prese A TTN: CLAIMS B - HB USE HB ONLY nt [address] [place] [address] MEDICARE - PB MEDICARE PB [id number] 2010-Prese ATTN: CLAIMS USE ONLY ONLY nt [address] [place] [address] BLUE CROSS BLUE CROSS OF [id number] 2018-Prese [address] [place] [address] MEDICARE PART MEDICARE PART A [id number] 2010-Prese A TTN: CLAIMS A - HB USE HB ONLY nt [address] [place] [address] MEDICARE PPS HC MEDICARE PPS [id number] 2010-Prese [address] [place] [address] Racquel Cheema Personal/Family Self 1945 [address] (Home) [place] [address] Advance Directives Latest Code Status on File Code Status Date Activated Date Inactivated Comments Full Code 09/18/2018 8:28 AM 09/18/2018 3:53 PM Full Code 02/08/2017 9:50 PM 02/09/2017 3:50 PM Full Code 01/28/2017 12:09 PM 02/07/2017 7:51 PM Full Code 01/28/2017 5:51 AM 01/28/2017 12:02 PM Full Code 12/15/2016 1:54 PM 12/18/2016 3:38 PM Code Status Discussion: Discussed Care Teams County Adviser Relationship Specialty Start Date End Date Eloise Malave MD PCP - General Family Practice 08/01/16 [address] [place], [place] [phone] Ginny Walker, Nurse Practitioner Nurse Practitioner 09/14/14 INDUSTRIAL ROBOTICS MECHANIC [address] [place], [place] [phone] Clarisse Barrios, RN Cancer Nurse Coordinator Oncology 08/22/18 [address], [address] [place], [place] [phone]
--- OUTSIDE RECORDS SUMMARY | 2022-02-20 21:15 | XMS_ITS | Encounter Summary ---
:1945 Author Organization [facility] Address [address], [place] [address] Care Team Providers Name Role Phone Unassigned, Provider Primary Care Provider Unavailable Encounter Details Date Type Department Care Team Description 04/22/1989 PN Conversion Only COMMUNICATION EQUIPMENT MECHANIC [address] [place] [address] Social History Tobacco Use Types Packs/Day Years Used Date Smoking Tobacco: Never Assessed Sex Assigned at Date Recorded Not on file documented as of this encounter Plan of Treatment Not on filedocumented as of this encounter Visit Diagnoses Not on filedocumented in this encounter Care Teams Contract Graphic Designer Relationship Specialty Start Date End Date Unassigned, Provider PCP - General 01/24/[address] [place] [id number] documented as of this encounter
--- OUTSIDE RECORDS SUMMARY | 2022-02-20 21:15 | XMS_ITS | Encounter Summary ---
:1945 Author Organization [facility] Address [address], [place] [address] Care Team Providers Name Role Phone Unassigned, Provider Primary Care Provider Unavailable Reason for Visit Reason Comments Toe Pain NAIL PROBLEM Encounter Details Date Type Department Care Team Description 04/29/2017 Initial Consult [facility] Chuck Castillo , Ingrown nail (Primary Dx); [facility] E[facility]ETT Onychomycosis; [address] [address] [place] [address] [place], [place] [phone] [address] Social History Tobacco Use Types Packs/Day Years Used Date Smoking Tobacco: Unknown Sex Assigned at Date Recorded Not on file documented as of this encounter Progress Notes Chuck Castillo DPM - 04/29/2017 10:45 AM CST DATE OF VISIT: 04/29/2017 SUBJECTIVE: Racquel Jones is a pleasant 71 y.o. female who presents to clinic today for evaluation of concerns with her nail plates. She has been having problems with ingrown nails. She also has thickening noted to the nail plates. She states that she has had 3 surgeries to her right foot at the right great toe area. She does have some numbness on the right great toe. Her last surgery was done 4 years ago. She does receive her care outside of our clinic and this is her 1st visit to our clinic.. Adverse Drug Reactions: Allergies Allergen Reactions ??? Sulfa Antibiotics No outpatient prescriptions prior to visit. No facility-administered medications prior to visit. Review of Systems: Negative for fever, rash or shortness of breath. Past Medical History: No past medical history on file. she denies diabetes or cancer. She does have a history of a blood clot and hypertension There are no active problems to display for this patient. No past surgical history on file. 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 OBJECTIVE: 71 y.o. year old female who appears their stated age. Alert and oriented and in no acute distress. Walks without a limp and appears to be in general good health. DP and PT pulses are palpable. No hair growth is present on the digits and capillary filling time is less than two seconds. Sensation is intact. She does have slight diminishment to sharp and dull discrimination on the medial aspect of her right great toe There is no weakness with muscle testing of the foot, ankle or lower leg. No pain or restriction with subtalar joint or ankle joint range of motion. In stance loss of longitudinal arch is evident. There are no paresthesias over the tarsal tunnel or with compression of the dorsal nerves. She does have evidence of previous surgery on her right foot. This is at the 1st MTP area. She appears to have had an arthrodesis of the 1st MTP. She does have slight pitting edema noted over the ankleareas. She does have thickened dystrophic nails 1 through 5 bilaterally. The nail plates are incurvated. No evidence of infection. No other abnormalities noted. ASSESSMENT: Ingrown nail bilateral feet Onychomycosis Numbness right great toe PLAN: Treatment options were discussed with the patient. I discussed the condition in great detail. I discussed with the patient that she has diminished to sharp and dull discrimination on the medial aspect of her right great toe. This is expected with 3 surgeries. I discussed with the patient I do not have anything to offer her for this condition. I discussed with the patient that her nail plates are extremely thickened and dystrophic as well as incurvated. I informed the patient that we do not do nail care and I did provide her with resources including the [employer]. I discussed with the patient that the thickening of the nails is caused by a noncontagious fungus. Idid recommend the use of Vicks VapoRub. She will apply this once a day to the affected area for the next 8-12 months. Follow-up with me p.r.n. basis The patient was discharged ambulatory and in stable condition. No orders of the defined types were placed in this encounter. No orders of the defined types were placed in this encounter. 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
[2022-02-20 21:16] LABS: INR 2.64 (0.91-1.10); Prothrombin Time 29.4 Seconds
[2022-02-20 21:24] VITALS: BP 130/61; PULSE 62; O2SAT 97
[2022-02-20 21:26] LABS: Albumin* 4.4 g/dL (3.3-5.0); Chloride* 100 mmol/L (96-114); Sodium* 136 mmol/L (135-149)
[2022-02-20 21:27] LABS: Potassium* 5.2 mmol/L (3.6-5.1)
[2022-02-20 21:29] LABS: Bilirubin Direct* 0.2 mg/dL (0.0-0.5); Bilirubin Total* 0.7 mg/dL (0.1-1.5); Carbon Dioxide* 26 mmol/L (20-32); Creatinine* 0.8 mg/dL (0.5-1.5); Est. Creatinine Clearance* 36.12; Estimated Glomerular Filt Rate 76 ml/min; Total Protein* 7.8 g/dL (6.0-8.3)
[2022-02-20 21:30] LABS: Alanine Aminotransferase* 16 U/L (4-35); Alkaline Phosphatase* 71 U/L (40-150); Aspartate Amino Transferase* 30 U/L (12-35); Blood Urea Nitrogen* 17 mg/dL (7-30); Calcium* 8.9 mg/dL (8.4-10.6); Glucose* 99 mg/dL (60-115)
[2022-02-20 21:32] LABS: C Reactive Protein* < 0.5 mg/dL (0.5-1.0)
--- NOTE | 2022-02-20 22:12 | ED_ITS ---
HPI - General Adult General Chief complaint: Unspecified Complaint, Adult Stated complaint: Bloody stool Time Seen by Provider: 02/20/22 20:42 Source: patient History of Present Illness HPI narrative: Patient is a 76-year-old woman who presents for evaluation of blood in the stool. She says for the past week or so couple of time she has noticed some blood with wiping. It happened again tonight and she thought she better get it checked out. She has not noted any blood mixed in with the stool, no melena. She does have some problems in general with a little bit of incontinence of stool as her stools are fairly loose. She wears a pad for this reason. No abdominal pain, nausea or vomiting. 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 She notes previous colonoscopy, she has had polyps removed in the past. She is due for a colonoscopy in I believe September of 2022. She is not having any rectal pain, she does not believe she has any hemorrhoids. Lives independently, here tonight with her son. She does not smoke or drink. Related Data Home Medications Medication Instructions Recorded Confirmed carboxymethylcellulose sodium 1 % 1 drp ophthalmic (eye) DAILY 10/25/21 01/22/22 eye liquid gel drops cholecalciferol (vitamin D3) 25 25 mcg PO BID 10/25/21 01/22/22 mcg (1,000 unit) tablet metoprolol succinate 50 mg 50 mg PO DAILY 10/25/21 01/22/22 tablet,extended release 24 hr simvastatin 40 mg tablet 40 mg PO HS 10/25/21 01/22/22 sodium chloride 5 % eye drops 5 drp ophthalmic (eye) DAILY 10/25/21 01/22/22 escitalopram oxalate 10 mg tablet 10 mg PO DAILY 10/26/21 01/22/22 famotidine 20 mg tablet 20 mg PO BID 10/26/21 01/22/22 furosemide 20 mg tablet 20 mg PO DAILY 10/26/21 01/22/22 acetaminophen 500 mg tablet 1,000 mg PO Q6H PRN 12/07/21 01/22/22 polyethylene glycol 3350 17 17 g PO BID 12/07/21 01/22/22 gram/dose oral powder potassium chloride 10 mEq 10 meq PO DAILY 12/07/21 01/22/22 capsule,extended release rivaroxaban 15 mg tablet mg PO 02/20/22 Previous Rx's Medication Instructions Recorded Home Oxygen #1 ea 12/08/21 Home Oxygen #1 ea 12/08/21 Allergies Allergy/AdvReac Type Severity Reaction Status Date / Time Sulfa (Sulfonamide Allergy Severe dyspnea Verified 02/20/22 20:03 Antibiotics) amoxicillin Allergy Unknown Verified 02/20/22 20:03 Review of Systems Status of ROS: Reports: 10 or more systems reviewed and unremarkable except as noted in History and below [facility] Medical History Atrial fibrillation Congestive heart failure Elevated troponin Essential hypertension Hernia History of DVT (deep vein thrombosis) Long QT interval Pulmonary hypertension Surgical History History of carpal tunnel release of both wrists History of cholecystectomy (~2018) History of total right knee replacement (~2014) Family History Mother Osteoarthritis Stomach cancer Brother Diabetes Father Diabetes Social History Highest level of school completed/degree received: high school graduate Smoking Status: Never smoker Do you use any of these nicotine containing products: None Second hand tobacco smoke exposure: No How often do you have a drink containing alcohol: monthly or less AUDIT-C Alcohol total score: 1 Non-prescribed substance use: denies use Caffeine: Yes (cup of coffee or pop a day) service: No Exam Narrative: Exam Narrative: Vital signs as noted above. In general, an alert, well-appearing patient. Head: Normocephalic, atraumatic. Eyes: Pupils are equal reactive. Extraocular movements are full. Conjunctivae are normal. ENT: Mucous membranes are moist. Throat is normal. Neck: Supple without lymphadenopathy. Heart: Regular rate and rhythm. No murmur or rub. Lungs: Clear bilaterally. No increased work of breathing, crackles or wheezes. Abdomen: Soft and nontender. No organomegaly. Rectal exam: She has a couple of small external hemorrhoids. There was some fecal incontinence, some brown stool noted on the pad she was wearing. There was a little bit of reddish tinge to the perianal area, which appeared to be likely blood. Rectal exam revealed no obvious masses. The stool itself looked normal, light brown in color without any obvious blood. It did test heme positive, which I think is at least partially contaminant from what I saw externally. Extremities: Well perfused. No edema. No calf tenderness. Pulses intact. Neurologic: Patient is alert and oriented to person and place. Speech is fluent. Face is symmetric. Moves all extremities equally. Affect: Normal. Skin: Warm and dry. Well perfused. Const: Vital Signs, click to edit/add: Vital Signs - 24 hr 02/20/22 19:58 02/20/22 21:24 Temperature 97.1 F L Pulse Rate [Left P ulse Oximeter] 61 62 Respiratory Rate 16 Blood Pressure [Ri ght Upper Arm] 127/68 130/61 Pulse Oximetry 97 97 Oxygen Delivery Me thod Room Air Room Air Documenting provider has reviewed patient's vital signs: yes Course Course Hospital Course: Labs are overall reassuring. Notably, her hemoglobin is normal. Her INR is 2.6. Her potassium is 5.2. Other labs are within normal limits. On the history she is providing what I see on exam, it sounds as if she is seeing just some blood with wiping, which may be due to an internal hemorrhoid. She is not describing blood mixed in with the stool or melena. Her hemoglobin is normal. She has seen this several times over the past week, and it does not seem to be getting worse. For now, I think it is most reasonable to let her go home, follow up with primary care and see if her colonoscopy could be moved up in time. Discussed with her that if this is changing at all, if she is seeing more blood, blood mixed in with the stool in the toilet, or melena, that she should come back right away, particularly given that she is anticoagulated. I would have her continue her Xarelto for now. She is comfortable with that plan. Vital Signs Vital signs: Initial Vital Signs Temperature 97.1 F L 02/20/22 19:58 Temperature Source Temporal Artery Scan 02/20/22 19:58 Pulse Rate 61 02/20/22 19:58 Pulse Rhythm 02/20/22 19:58 Respiratory Rate 16 02/20/22 19:58 Blood Pressure 127/68 02/20/22 19:58 Blood Pressure Mean 87 02/20/22 19:58 Blood Pressure Position Sitting 02/20/22 19:58 Pulse Oximetry 97 02/20/22 19:58 Oxygen Delivery Method 02/20/22 19:58 Vital Signs Temperature 97.1 F L 02/20/22 19:58 Pulse Rate 61 02/20/22 19:58 Respiratory Rate 16 02/20/22 19:58 Blood Pressure 127/68 02/20/22 19:58 Pulse Oximetry 97 02/20/22 19:58 Oxygen Delivery Method 02/20/22 19:58 Temperature 97.1 F L 02/20/22 19:58 Pulse Rate 62 02/20/22 21:24 Respiratory Rate 16 02/20/22 19:58 Blood Pressure 130/61 02/20/22 21:24 Pulse Oximetry 97 02/20/22 21:24 Oxygen Delivery Method 02/20/22 21:24 Medical Decision Making Lab Data Labs: Lab Results 02/20/22 02/20/22 02/20/22 Range/Units 20:54 20:54 20:54 WBC 6.04 (4.50-11.00) K/uL RBC 4.16 (4.00-5.20) m/uL Hgb 13.0 (12.0-16.0) gm/dL Hct 38.6 (33.0-51.0) % MCV 93 (80-100) fL MCH 31 (26-34) pg MCHC 34 (32-36) gm/dL RDW Coeff of Dusty 11.7 (11.5-15.5) % Plt Count 256 (140-440) K/uL Neut % (Auto) 64.9 (42.0-72.0) % Lymph % (Auto) 19.7 L (20-44) % [place] % (Auto) 10.1 (0.0-11.0) % Eos % (Auto) 4.1 (0.0-7.0) % Baso % (Auto) 1.0 (0.0-3.0) % Neut # (Auto) 3.92 (1.7-7.0) K/uL Lymph # (Auto) 1.20 (0.90-2.90) K/uL [place] # (Auto) 0.60 (0.00-0.90) K/UL Eos # (Auto) 0.25 (0.00-0.50) K/uL Baso # (Auto) 0.06 (0.00-0.30) K/uL Abs Immat Gran (auto) 0.00 (0.00-0.30) K/uL Imm/Tot Granulo (auto) 0.0 % INR 2.64 H (0.91-1.10) Sodium 136 (135-149) mmol/L Potassium 5.2 H (3.6-5.1) mmol/L Chloride 100 (96-114) mmol/L Carbon Dioxide 26 (20-32) mmol/L BUN 17 (7-30) mg/dL Creatinine 0.8 (0.5-1.5) mg/dL Estimated Creat Clear 36.12 Estimated GFR 76 ml/min Glucose 99 (60-115) mg/dL Calcium 8.9 (8.4-10.6) mg/dL Total Bilirubin 0.7 (0.1-1.5) mg/dL Direct Bilirubin 0.2 (0.0-0.5) mg/dL AST 30 (12-35) U/L ALT 16 (4-35) U/L Alkaline Phosphatase 71 (40-150) U/L C-Reactive Protein (0.5-1.0) mg/dL Total Protein 7.8 (6.0-8.3) g/dL Albumin 4.4 (3.3-5.0) g/dL 02/20/22 Range/Units 20:54 WBC (4.50-11.00) K/uL RBC (4.00-5.20) m/uL Hgb (12.0-16.0) gm/dL Hct (33.0-51.0) % MCV (80-100) fL MCH (26-34) pg MCHC (32-36) gm/dL RDW Coeff of Dusty (11.5-15.5) % Plt Count (140-440) K/uL Neut % (Auto) (42.0-72.0) % Lymph % (Auto) (20-44) % [place] % (Auto) (0.0-11.0) % Eos % (Auto) (0.0-7.0) % Baso % (Auto) (0.0-3.0) % Neut # (Auto) (1.7-7.0) K/uL Lymph # (Auto) (0.90-2.90) K/uL [place] # (Auto) (0.00-0.90) K/UL Eos # (Auto) (0.00-0.50) K/uL Baso # (Auto) (0.00-0.30) K/uL Abs Immat Gran (auto) (0.00-0.30) K/uL Imm/Tot Granulo (auto) % INR (0.91-1.10) Sodium (135-149) mmol/L Potassium (3.6-5.1) mmol/L Chloride (96-114) mmol/L Carbon Dioxide (20-32) mmol/L BUN (7-30) mg/dL Creatinine (0.5-1.5) mg/dL Estimated Creat Clear Estimated GFR ml/min Glucose (60-115) mg/dL Calcium (8.4-10.6) mg/dL Total Bilirubin (0.1-1.5) mg/dL Direct Bilirubin (0.0-0.5) mg/dL AST (12-35) U/L ALT (4-35) U/L Alkaline Phosphatase (40-150) U/L C-Reactive Protein < 0.5 L (0.5-1.0) mg/dL Total Protein (6.0-8.3) g/dL Albumin (3.3-5.0) g/dL Discharge Plan Discharge Clinical Impression: BRBPR (bright red blood per rectum) Patient Disposition: Home, Self-Care Condition: Stable Instructions: Rectal Bleeding (ED) Additional Instructions: Follow-up with primary care within the next week to discuss further evaluation, possible earlier colonoscopy. If you have worsening bleeding, blood mixed in with the stool or dark black stools, abdominal pain, vomiting or fevers, return to the emergency department for further evaluation. Prescriptions: No Action carboxymethylcellulose sodium 1 % drops, liquid gel 1 drp ophthalmic (eye) DAILY simvastatin 40 mg tablet 40 mg PO HS metoprolol succinate 50 mg tablet extended release 24 hr 50 mg PO DAILY sodium chloride 5 % drops 5 drp ophthalmic (eye) DAILY cholecalciferol (vitamin D3) 25 mcg (1,000 unit) tablet 25 mcg PO BID famotidine 20 mg tablet 20 mg PO BID furosemide 20 mg tablet 20 mg PO DAILY escitalopram oxalate 10 mg tablet 10 mg PO DAILY acetaminophen 500 mg tablet 1,000 mg PO Q6H PRN Label Comments: Take 1,000 mg by mouth every 6 hours if needed. Max acetaminophen dose: 4000mg in 24 hrs. potassium chloride 10 mEq capsule, extended release 10 meq PO DAILY polyethylene glycol 3350 17 gram/dose powder 17 g PO BID Label Comments: Take 17 g by mouth 2 times daily. (DME) Home Oxygen Misc See Rx Instructions .Route Qty: 1 0RF Rx Instructions: 3 Liters with activity (DME) Home Oxygen Misc See Rx Instructions .Route Qty: 1 0RF Rx Instructions: 3 Liters with Activity rivaroxaban 15 mg tablet PO Rx Instructions: 20 orally; must administer with meal; PCP to order further dosing. Follow Up/Referrals: Eloise Malave MD [Primary Care Provider] - Stand Alone Forms: [employer] Info Instructions
[2022-02-20] MEDS: ACETAMINOPHEN 500 MG TABLET 1000 MG PO (22:32)
== END 2022-02-20 22:34 | disposition home or self-care (01) ==
PROVIDERS: Emergency Provider Emergency Medicine; PCP Family Medicine
DX: K62.5 Hemorrhage of anus and rectum (principal); I48.91 Unspecified atrial fibrillation; I11.0 Hypertensive heart disease with heart failure; I50.9 Heart failure, unspecified; Z79.01 Long term (current) use of anticoagulants; Z79.899 Other long term (current) drug therapy; Z86.718 Personal history of other venous thrombosis and embolism; Z86.711 Personal history of pulmonary embolism; Z86.010 Personal history of colon polyps; Z88.0 Allergy status to penicillin; Z88.2 Allergy status to sulfonamides
CPT/HCPCS: 36415; 80048; 80076; 85025; 85610; 86140; 99283; 99284; A9270

== ENCOUNTER 2022-03-14 11:15 | Outpatient (RCR) | payer MEDICARE, BC, SELFPAY ==
--- NOTE | 2022-02-05 16:57 | PT.OPE ---
PT [facility] Outpatient Eval PT [facility] Outpatient Eval Start: 02/05/22 12:28 Freq: Status: Active Protocol: Document 02/05/22 16:51 CJT (Rec: 02/05/22 16:57 CJT [email or web address]) E-signed By Corwin Law PT Physical Therapy Outpatient Evaluation Insurance Information Recert Due Date 04/06/22 Insurance Name Medicare B,Blue [employer] Medical Diagnosis M54.16 - lumbar radiculopathy, Right Treating Diagnosis M54.16 - lumbar radiculopathy, Right Referring Adria Valero MD Subjective Subjective Pt presents with complaints of low back pain and pain into R LE. Pt had PAT on 12/05/2021 and this was helpful after a few days. Is taking extra strength Tylenol before she walks and before she goes to bed. Pts pain is in R lumbar region, and has some pain into R hip/thigh as well. Stairs are difficult for her at this time (up is worse than down). Pts stand time/activity tolerance is about 30 minutes at this time, needs to sit and rest but does not know how long she needs to rest before she can return to her activities. Pt is also waking frequently throughout the night due to pain as well as to use the bathroom. Pt rates pain as 8/10 at its worst and average pain is approx 4/10. Pain does get to a 0/10 after she has sat for a while. Also complains of R shoulder pain while looking at her phone. This pain is worse right now while she sits in the chair in examination room. Pt also has concerns about her balance. Pain Comments 0-8/10 Date of Last Physician Visit 01/22/22 Current Work Status Retired Precautions Therapy Limitations/Systems Review Not Limited Objective Range of Motion Pt stands with 8 degrees lean to R Lumbar ROM Extension - 0 Flexion - 80 -fingertips reach mid-khan R/L Side Bend - 18/4 R/L Rotation - moderate/mild impairments R Hip ROM Flexion - 100 IR/ER - 23/18 L Hip ROM Flexion - 100 IR/ER - 23/20 R knee ROM - WNL L knee ROM - WNL Strength R Hip Strength Flexion - 3/5 Abduction - 3+/5 (seated) Adduction - 4/5 IR - 3+/5 ER - 3+/5 Extension - DNT L Hip Strength Flexion - 3+/5 Abduction - 4/5 (seated) Adduction - 4+/5 IR - 4/5 ER - 4/5 Extension - DNT R knee Extension - 5/5 R Knee Flexion - 4/5 L knee Extension - 4+/5 L knee Flexion - 4/5 R ankle DF - 4+/5 L ankle DF - 4+/5 Posture Pt leans to the R approx 8 degrees in static standing Other/Pertinent Objective Pelvis: L upslip R LE: 83.5 cm L LE: 82.0 cm Assessment Assessment/Impression Pt is a 76 year old female who presents to OP PT clinic with complaints of R LE pain secondary to lumbar radiculopathy. Pts pain is worst in her L lumbar region with occasional radiating pain into R hip. Pt reports that she had shooting pain down her R LE but has not had this pain in several years now. Pt is able to perform ADLs such as cleaning, cooking for about 30 minutes before she needs to sit and rest due to pain, so her son who lives with her has been cooking for the two of them lately. Testing reveals deficits in B hip strength and ROM as well as inability to extend lumbar spine in standing due to pain and stiffness. Pt is also very tender with palpation to R QL , glute med/min, and piriformis today as she notes this becomes painful with continued palpation. It appears that Racquel has a LLD that is worth mentioning as well as significant L upslip of pelvis, however, this may be due to the R lateral curve of her spine. Will plan to reassess leg length when she returns to determine if a heel lift will be beneficial for her. Skilled PT services are medically necessary to address deficits and return patient to highest level of function. Recommend physical therapy sessions 2/week for 8 weeks. Pt agrees with this plan. Printout of HEP was given for I completion and pt gives verbal understanding of each exercise. Primary Functional Limitations Standing, walking, lifting, reaching overhead Plan of Care Rehabilitation Potential Good Physical Therapy Goals STG - To be completed in 2-3 weeks: 1. Pt will report reduction in back pain by factor of 2 so that they may perform all ADLs with tolerable level of pain. 2. Pt will demonstrate ability to perform pelvic tilt with good coordination as indication of appropriate firing of pelvic and lumbar stabilizing muscles to provide greater support for pelvis and lumbar spine. 3. Pt will demonstrate improved lumbar extension by 5 degrees so that they may reach for cans of soup on top shelf of pantry wihtout reproduction of LBP. 4. Pt will demonstrate grossly 4+/5 MMT for all LE motions without reproduction of pain to provide greater support to pelvis and lumbar spine. 5. Pt will report ability to tolerate 45+ minutes of standing/walking so that they may shop for groceries at store and walk with friends for exercise. LTG - To be completed in 8-12 weeks: 1. Pt to be I with HEP so that they may I manage progression of symptoms. 2. Pt will report ability to sleep through the night without waking due to pain so that they may wake well rested with reduced mental fatigue during the day. 3. Pt will demonstrate ability to bend forward to hand picker shoe off of ground without increase in back pain so that they may perform similar activities at home without return of symptoms. 4. Pt will demonstrate 5/5 MMT for both upper and lower abdominals to provide greater support to pelvis and lumbar spine. Treatment Plan/Direct Interventions Electrical Stimulation,Heat, Joint Mobilization,Manual Therapy,Neuromuscular Re-ed, Self-Care/Home Management, Therapeutic Exercises Frequency/Duration 2/week for 8 weeks Patient Will Be Discharged From Therapy Completion of LTG(s),Skills Plateau,Independent w/HEP, Independently Progressing Evaluation Billing Untimed Code Treatment Minutes 50 PT Eval No Charge No Complexity Low Certification Information Initial Certification Date 02/05/22 Ending Certification Date 04/06/22 Provider Signature Shows Agreement With POC & Medical Necessity Physician Signature & Date Requested Please Sign/Date Here Physician Comment/Change : Physician NPI Number #
--- NOTE | 2022-03-14 12:38 | PT.OPDN ---
PT [place] [facility] Daily Note PT [facility] Daily Note Start: 02/05/22 12:28 Freq: Status: Active Protocol: Document 03/14/22 11:12 CJT (Rec: 03/14/22 12:31 CJT [id number]) E-signed By Corwin Law, PT PT OP Daily Progress Note Visit Information Note Type Recert/Progress Note Visit Number 10 Insurance Authorized Visits tbd Physician Authorized Visits eval and treat Insurance Information Recert Due Date 04/06/22 Insurance Name Medicare B,Blue Cross/Blue Shield Medical Diagnosis M54.16 - lumbar radiculopathy, Right Treating Diagnosis M54.16 - lumbar radiculopathy, Right Referring Adria Valero MD Subjective Subjective Pt is doing well and notes that her back pain seems to be improving. She does not notice her back pain as much and reports that she is still having achiness in her low back R>L after long periods of sitting or after activities where she is lifting and carrying objects. Denies shooting pain down the leg. Home Exercise Home Exercise Comments [id number] Objective Other/Pertinent Objective All LE motions graded as 5/5 MMT B with exception of B hip flexion which was graded as 4/ 5 MMT B. Spurling's Compression: negative bilaterally SLR, Slump, SERGEY, FADIR, all negative for increased LBP. Pt does note pain in posterior hip bilaterally with FADIR Patient Instructed in Risks/Benefits Yes Therapeutic Exercise Therapeutic Exercise Minutes (minutes) 40 Therapeutic Exercise: To Restore Bike - 6 minutes, seat 8 Functional Status Leg Press 2 x 15, 10#, Seat 8 Gastroc stretch on slant board x 90 Seated CC row 2x10, 12.5#, 17. 5# CC Rotations 10# 2x10 ea Supine bridge 2 x 10, 5 hold Treatment Minutes Timed Code Treatment Minutes 40 Total Treatment Time 40 Billing Units Therapeutic Exercise Units 3 Assessment/Impression Assessment/Impression Racquel has shown fair progress in therapy thus far and is due to a new recertification. She has used 10 of [address] Guzman, although would like to continue working with therapy for a few more weeks to continue improving her symptoms. Racquel has demonstrated improvements in her LE strength and has had consistently reduced back pain week to week. She is no longer waking at night due to pain and is experiencing achiness in her back that seems to be related to sitting posture when she sits for periods of 30 minutes or more, as well as muscle achiness from carrying items around her home when she is cooking and cleaning. It seems that the mobility and strengthening exercises we have been working on are helping but I would recommend an additional 4 weeks of therapy to continue working on her strength and spine mobility. Racquel did have a setback early on in therapy when I had encouraged her to use a heel lift in her R shoe. I have consistently measured a 2+ cm difference in leg length with L>R. Use of the heel lift in her R shoe caused a significant flare up of hip pain on the R. We will further discuss continued use of this lift, or a thinner lift when she returns to our clinic, as her LLD is likely a contributing factor to her back pain. Plan of Care Physical Therapy Goals STG - To be completed in 2-3 weeks: 1. Pt will report reduction in back pain by factor of 2 so that they may perform all ADLs with tolerable level of pain. MET 2. Pt will demonstrate ability to perform pelvic tilt with good coordination as indication of appropriate firing of pelvic and lumbar stabilizing muscles to provide greater support for pelvis and lumbar spine. MET 3. Pt will demonstrate improved lumbar extension by 5 degrees so that they may reach for cans of soup on top shelf of pantry without reproduction of LBP. NOT MET 4. Pt will demonstrate grossly 4+/5 MMT for all LE motions without reproduction of pain to provide greater support to pelvis and lumbar spine. MET - with exception of B hip flexion (4/5 MMT) 5. Pt will report ability to tolerate 45+ minutes of standing/walking so that they may shop for groceries at store and walk with friends for exercise. LTG - To be completed in 8-12 weeks: 1. Pt to be I with HEP so that they may I manage progression of symptoms. 2. Pt will report ability to sleep through the night without waking due to pain so that they may wake well rested with reduced mental fatigue during the day. 3. Pt will demonstrate ability to bend forward to belt picker shoe off of ground without increase in back pain so that they may perform similar activities at home without return of symptoms. 4. Pt will demonstrate 5/5 MMT for both upper and lower abdominals to provide greater support to pelvis and lumbar spine. Daily Plan of Care Continue per POC Recertification Information Initial Certification Date 02/05/22 Recertification Start Date 03/19/22 Recertification Due Date 04/27/21 Reasons to Continue Skilled Therapy Skilled PT services are necessary at this time for addressing pts back pain by focusing on core and LE strengthening, spine and hi mobility, and postural corrections with use of shoe inserts to allow for gradual improvements in the alignment of pts pelvis. Rehabilitation Potential Good. Continued Plan of Care and Interventions Ther-ex, manual, neuro-Re-Ed, self-cares Provider Signature Shows Agreement With POC & Medical Necessity Physician Comment/Change Comment or Changes Physician NPI Number #
== END 2022-05-22 11:44 | disposition home or self-care (01) ==
PROVIDERS: PCP Family Medicine; Visit Provider Family Medicine
DX: M54.16 Radiculopathy, lumbar region (principal); Z51.89 Encounter for other specified aftercare
CPT/HCPCS: 97110; 97112; 97140; 97161

== ENCOUNTER 2022-10-16 11:15 | Outpatient (RCR) | payer MEDICARE, BC, SELFPAY ==
--- NOTE | 2022-08-14 15:33 | PT.OPE ---
PT [place] [facility] Eval PT [facility] Eval Start: 08/13/22 07:45 Freq: Status: Active Protocol: Document 08/14/22 15:32 CJT (Rec: 08/14/22 15:32 CJT [id number]) E-signed By Corwin Law PT Physical Therapy Outpatient Evaluation Insurance Information Recert Due Date 10/19/22 Insurance Name Medicare B Medical Diagnosis M54.5 - Low back pain M54.2 - cervicalgia Treating Diagnosis M54.5 - Low back pain M54.2 - cervicalgia Referring Adria Valero MD Subjective Subjective Pt presents with complaints of R hip and low back pain. Pain has been about the same for the past year or so. Walking makes her hip pain worse. After walking for some time she needs to sit and rest; isn 't sure how long. Has been using her cane at all times. Hip pain is not keeping her up at night currently. Pt lives in a house with 2 x 5 step to get to main floor. Handrails on both sides. Pt denies falls in the past year but she is concerned about her balance. Thinks use of her cane has been helpful in this regard. Her hip does cause pain at all times, anywhere from a 2/10 to 8/10. Pt also notes pain in her L side of her neck. Isn't sure if this is due to sleeping wrong. Pain is on the L side and seems to be in the muscles of the neck. Pain Comments 2-8/10 10/10 with palpation to lateral hip mm on R Current Work Status Retired Precautions Therapy Limitations/Systems Review Not Limited Objective Other/Pertinent Objective Lumbar ROM Extension - 0 Flexion ? can reach approx. 3 inches past knees R/L Side Bend ? 15/7 (pt stands with 10 degrees lean to R) R/L Rotation - R Hip ROM Flexion - 100 Abduction - 30 IR/ER ? 20/15 Extension - 0 L Hip ROM Flexion - 100 Abduction - 30 IR/ER ? 2020 Extension - 0 R knee ROM - WNL L knee ROM ? WNL Upper Abdominals - 2+/5 MMT Lower Abdominals - 2+/5 MMT R Hip Strength Flexion - 4/5 MMT Abduction - 4/5 MMT Adduction - 4+/5 MMT IR - 4+/5 MMT ER - 5/5 MMT Extension - 3+/5 MMT L Hip Strength Flexion - 4/5 MMT Abduction - 4/5 MMT Adduction - 4+/5 MMT IR - 5/5 MMT ER - 5/5 MMT Extension - 3+/5 MMT R knee Extension - 4+/5 MMT R Knee Flexion - 4+/5 MMT L knee Extension - 4+/5 MMT L knee Flexion - 4+/5 MMT R ankle DF - 4+/5 MMT L ankle DF - 4+/5 MMT Palpation: pt reports pain/ tenderness with palpation to R glute min, glute med, piriformis, ITB, QL Gait: short stride length, flat foot at initial contact, use of SPC in R hand Assessment Assessment/Impression Racquel is a very pleasant 76 year old female who presents to our clinic with complaints of R hip pain, low back pain, and neck pain. Her R hip pain is constant and is improved with rest, made worse with excessive ambulation but she is not sure how long/far. We will test this when she returns to our clinic. Pts hip and lumbar ROM is quite limited with testing today. Her strength in these regions is also very limited, see objective. Racquel will benefit from strengthening exercises for lower extremities and core with emphasis on hip stabilization. We will also focus on balance to address her balance concerns to reduce risk of falls. The nature of the pts condition was explained and all questions were answered to the pts satisfaction. Skilled PT services are medically necessary to address deficits and return patient to highest level of function. Recommend physical therapy sessions 2/ week for 6 weeks. Pt agrees with this plan. Printout of HEP was given for I completion and pt gives verbal understanding of each exercise . Plan of Care Rehabilitation Potential Good Physical Therapy Goals STG - To be completed in 2-3 weeks: 1. Pt will report reduction in hip pain by factor of 2 with ambulation so that they may shop for groceries with manageable level of pain. 2. Pt will demonstrate ability to perform pelvic tilt with good coordination as indication of appropriate firing of pelvic and lumbar stabilizing muscles to provide greater support for pelvis and lumbar spine. 3. Pt will demonstrate at least 4+/5 MMT for all LE motions without reproduction of pain to provide greater support to pelvis and lumbar spine. 4. Pt will report ability to tolerate 30+ minutes of standing so that they may shop for groceries at store. LTG - To be completed in 6 weeks: 1. Pt to be I with HEP so that they may I manage progression of symptoms. 2. Pt will demonstrate ability to ambulate for 15+ minutes over uneven ground with max 3/ 10 pain in her R hip so that she may walk with her family for recreation. 3. Pt will demonstrate at least 4/5 MMT for both upper and lower abdominals to provide greater support to pelvis and lumbar spine. Treatment Plan/Direct Interventions Heat,Ice/Cold/Vasopneumatic, Joint Mobilization,Manual Therapy,Neuromuscular Re-ed, Self-Care/Home Management, Therapeutic Activities, Therapeutic Exercises Patient Will Be Discharged From Therapy Completion of LTG(s),Skills Plateau,Independent w/HEP, Independently Progressing Evaluation Billing Untimed Code Treatment Minutes 50 PT Eval No Charge No Complexity Low Certification Information Initial Certification Date 08/14/22 Ending Certification Date 10/19/22 Provider Signature Shows Agreement With POC & Medical Necessity Physician Signature & Date Requested Please Sign/Date Here Physician Comment/Change : Physician NPI Number #
== END 2022-11-20 13:43 | disposition home or self-care (01) ==
PROVIDERS: PCP Family Medicine; Visit Provider Family Medicine
DX: M54.50 Low back pain, unspecified (principal); M54.2 Cervicalgia; Z51.89 Encounter for other specified aftercare
CPT/HCPCS: 97110; 97140; 97161; 97535

== ENCOUNTER 2025-01-11 13:17 | Emergency (ER) | payer MEDICARE, BC, SELFPAY ==
--- OUTSIDE RECORDS SUMMARY | 2024-03-06 06:30 | XMS_ITS ---
Author Organization [facility] Address [address] [place] [address] Care Team Providers Care Floorworker Distributor Name Role Phone SHAHID Kumar Robbin Primary Care Provider UnavailEvelin Davey Unavailable [phone] Evelin Gaona Unavailable [phone] Allergies Allergen (clinical drug ingredient) Drug/Non Drug Allergy documented on EMR Reaction Allergy Type Onset Date Status Substance with sulfonamide structure and antibacterial mechanism of action (substance) Sulfa Antibiotics Unknown Drug Allergy Active REASON FOR VISIT 1mo f/u on medication and UUI, Concerns:, NG, MA Medications Medication SIG (Take, Route, Frequency, Duration) Notes Start Date End Date Status oxyBUTYnin Chloride 5 MG 1 tablet Orally Twice a daily; Duration: 90 days 02/07/2024 Active Acetaminophen Active Escitalopram Oxalate 10 MG 1 tablet Orally Once a day Active Famotidine 20 MG 1 tablet at bedtime as needed Orally Once a day Active Furosemide 20 MG 1 tablet Orally Once every other day Active Metoprolol Succinate ER 50 MG 1 tablet Orally Once a day Active Auburn 3 Active Potassium Chloride ER 10 MEQ 1 tablet with food Orally Twice a day Active Simvastatin 20 MG 1 tablet in the evening Orally Once a day Active Sodium Chloride 5% ointment Ac tive Vitamin D Active Xarelto 20 MG 1 tablet with food Orally Once a day Active Social History Tobacco Use: Social History Observation Description Date Details (start date - stop date) Never Smoker NA - NA Tobacco Control (Standard) Question Answer Notes Tobacco use: Nonsmoker Encounters Encounter Location Date Provider Diagnosis [facility] [address] [place] [address] 03/06/2024 Evelin Gaona Plan Of Treatment Next Appt Details Provider Name:Evelin Gaona, 1 01:30:00 PM, [address], [place], [address], Provider Name:Evelin Gaona, 1 02:30:00 PM, [address], [place], [address], Provider Name:Evelin Gaona, 1 01:30:00 PM, [address], [place], [address], Provider Name:Evelin Gaona, 1 04/25/2024 01:30:00 PM, [address], [place], [address], Provider Name:Evelin Gaona, 1 05/02/2024 01:30:00 PM, [address], [place], [address], Provider Name:Evelin Gaona, 1 05/09/2024 01:30:00 PM, [address], [place], [address], Provider Name:Evelin Gaona, 1 05/16/2024 01:30:00 PM, [address], [place], [address], Provider Name:Evelin Gaona, 1 05/24/2024 01:30:00 PM, [address], [place], [address], Provider Name:Evelin Gaona, 1 05/31/2024 01:30:00 PM, [address], [place], [address], Provider Name:Evelin Gaona, 1 06/07/2024 01:30:00 PM, [address], [place], [address], Provider Name:Evelin Gaona, 1 01:30:00 PM, [address], [place], [address], Provider Name:Evelin Gaona, 0 04/27/2025 01:30:00 PM, [address], [place], [address], Provider Name:Evelin Gaona, 0 05/04/2025 01:30:00 PM, [address], [place], [address], Provider Name:Evelin Gaona, 0 05/11/2025 01:30:00 PM, [address], [place], [address], Progress Notes * SARAHGuanakito RIVERAeDOB:1945 (79 yo F)Acc No.[id number]:03/06/2024 Patient: Jerome QUINTANILLAnice Provider: Jose Gaona DNP :1945 A ge:78 Y S ex:Female Date:03/06/2024 Address:[address] [place], [place] [id number] Pcp:SHAHID Darling Subjective: * Chief Complaints: * 1 . 1mo f/u on medication and UUI. 2. Concerns:. 3. MARTA ZACARIAS. * Medical History: H ypertension, Arthritis, Cancer, Pelvic organ prolapse (surgically corrected). 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 B irth Control: M enopause. S exual Activity N ot currently sexually active. S exually Tranmitted Disease (STD) N one. * OB History: G PAL: G [id number]. P regnancy # 1: 1 968, Female, Stillborn. P regnancy # 2: 1 969, normal spontaneous vaginal delivery (), Male. P regnancy # 3: 1 971, normal spontaneous vaginal delivery (), Female.? P regnancy # 4: 1 975, normal spontaneous vaginal delivery (), male. * Surgical History: T ubal Ligation 1975, Hernia Surgery x7 . * Family History: Hypertension: Mother Diabetes: Brother Heart Disease: Father, Mother. * Social History: T obacco Use: T obacco Control (Standard) T obacco use: N onsmoker D rugs/Alcohol: C affeine I ntake: 1 -2 cups per day Coffee, soda, occassionally Do you smoke marijuana?: Denies. Do you drink alcohol?: No. * Medications: T aking Xarelto 20 MG Tablet 1 tablet with food Orally Once a day , Taking Vitamin D , Taking Sodium Chloride , Notes to Pharmacist: 5% ointment, Taking Simvastatin 20 MG Tablet 1 tablet in the evening Orally Once a day , Taking Potassium Chloride ER 10 MEQ Tablet Extended Release 1 tablet with food Orally Twice a day , Taking Auburn 3 , Taking Metoprolol Succinate ER 50 MG Tablet Extended Release 24 Hour 1 tablet Orally Once a day , Taking Furosemide 20 MG Tablet 1 tablet Orally Once every other day , Taking Famotidine 20 MG Tablet 1 tablet at bedtime as needed Orally Once a day , Taking Escitalopram Oxalate 10 MG Tablet 1 tablet Orally Once a day , Taking Acetaminophen , Taking oxyBUTYnin Chloride 5 MG Tablet 1 tablet Orally Twice a daily , Medication List reviewed and reconciled with the patient * Allergies: S ulfa Antibiotics. Objective: * Vitals: Assessment: Plan: * Treatment: * Preventive Medicine: YOUR PREVENTIVE WELLNESS PLAN: B reast Cancer Screening (Mammogram): My last mammogram was done on: 0 04/22/2022 Normal, per pt C ervical Cancer Screening (Pap Smear): My last Pap smear was done on: O bonita 65yrs O steoporosis Screening (Bone Density Measurement): My last bone density was done on: O steoporosis C olorectal Cancer Screening: Last Done Colonoscopy B enign polyps D epression Screening: Screening for depression was last done on: 0 10/02/2023 * Images: Billing Information: * Visit Code: * Procedure Codes: * Electronic signature of Sonia Gaona CNP on 01/11/2025 at 01:21 PM CDT Sign off status: Pending * Provider: Jose Gaona DNP Date: 05/06/2023 Generated for Kendrick zacarias/Sabine/eTransmitting on: 0 01/11/2025 01:21 PM CDT
--- OUTSIDE RECORDS SUMMARY | 2024-07-24 05:45 | XMS_ITS ---
Author Organization [facility] Address [address] [place] [address] Care Team Providers Care Web Operations Administrator Name Role Phone SHAHID Kumar Robbin Primary Care Provider UnavailEvelin Davey Unavailable [phone] Evelin Gaona Unavailable [phone] Allergies Allergen (clinical drug ingredient) Drug/Non Drug Allergy documented on EMR Reaction Allergy Type Onset Date Status Substance with sulfonamide structure and antibacterial mechanism of action (substance) Sulfa Antibiotics Unknown Drug Allergy Active REASON FOR VISIT medication check, Concerns:, NG, MA Medications Medication SIG (Take, Route, Frequency, Duration) Notes Start Date End Date Status oxyBUTYnin Chloride 5 MG 1 tablet Orally Twice a daily; Duration: 90 days 02/07/2024 Active Furosemide 20 MG 1 tablet Orally Once every other day Active Famotidine 20 MG 1 tablet at bedtime as needed Orally Once a day Active Escitalopram Oxalate 10 MG 1 tablet Orally Once a day Active Acetaminophen Active Simvastatin 20 MG 1 tablet in the evening Orally Once a day Active Potassium Chloride ER 10 MEQ 1 tablet with food Orally Twice a day Active Holstein 3 Active Metoprolol Succinate ER 50 MG 1 tablet Orally Once a day Active Sodium Chloride 5% ointment Ac tive Xarelto 20 MG 1 tablet with food Orally Once a day Active Vitamin D Active Gemtesa 75 MG 1 tablet Orally Once a day; Duration: 90 days 05/28/2024 Active Social History Tobacco Use: Social History Observation Description Date Details (start date - stop date) Never Smoker NA - NA Tobacco Control (Standard) Question Answer Notes Tobacco use: Nonsmoker Encounters Encounter Location Date Provider Diagnosis [facility] [place] [address] [place] [address] 07/24/2024 Evelin Gaona Plan Of Treatment Next Appt Details Provider Name:Evelin Gaona, 1 01:30:00 PM, [address], [place], [address], Provider Name:Evelin Gaona, 1 02:30:00 PM, [address], [place], [address], Provider Name:Evelin Gaona, 1 01:30:00 PM, [address], [place], [address], Provider Name:Evelin Gaona, 1 04/25/2024 01:30:00 PM, [address], [place], [address], Provider Name:Evelin Gaona, 1 05/02/2024 01:30:00 PM, [address], [place], [address], Provider Name:Evelin Gaona, 1 05/09/2024 01:30:00 PM, [address], [place], [address], Provider Name:Evelin Gaona, 1 05/16/2024 01:30:00 PM, [address], [place], [address], Provider Name:Evelin Gaona, 1 05/24/2024 01:30:00 PM, [address], [place], [address], Provider Name:Evelin Gaona, 1 05/31/2024 01:30:00 PM, [address], [place], [address], Provider Name:Evelin Gaona, 1 06/07/2024 01:30:00 PM, [address], [place], [address], Provider Name:Evelin Gaona, 1 01:30:00 PM, [address], [place], [address], Provider Name:Evelin Gaona, 0 04/27/2025 01:30:00 PM, [address], [place], [address], Provider Name:Evelin Gaona, 0 05/04/2025 01:30:00 PM, [address], [place], [address], Provider Name:Evelin Gaona, 0 05/11/2025 01:30:00 PM, [address], [place], [address], Progress Notes * Guanakito CHEEMAeDOB:1945 (79 yo F)Acc No.[id number]:07/24/2024 Progress Notes Patient: Racquel QUINTANILLA Provider: Jose Gaona DNP :1945 A ge:78 Y S ex:Female Date:07/24/2024 Address:[address] [place], [place] [id number] Pcp:SHAHID Darling Subjective: * Chief Complaints: * 1 . Medication check. 2. Concerns:. 3. MARTA ZACARIAS. * HPI: * General: Unsure what patient is taking since last appointment. Please update med list. Thanks!!. * Medical History: H ypertension, Arthritis, Cancer, Pelvic organ prolapse (surgically corrected). 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 B irth Control: M enopause. S exual Activity N ot currently sexually active. S exually Tranmitted Disease (STD) N one. * OB History: G PAL: G [id number]. P regnancy # 1: 1 968, Female, [...] food Orally Twice a day , Taking Holstein 3 , Taking Metoprolol Succinate ER 50 [...] 1 tablet Orally Twice a daily , Taking Gemtesa 75 MG Tablet 1 tablet Orally Once a day , Medication List reviewed and reconciled with [...] of Sonia Gaona CNP on 01/11/2025 at 01:22 PM CDT Sign off status: Pending * Provider: Jose Gaona DNP Date: 0 07/24/2024 Generated for Kendrick zacarias/Sabine/Judit on: 0 01/11/2025 01:22 PM CDT History and Physical Notes * HPI (History of Present Illness) Category Sub-Category Detail Notes Category Not es *General Unsure what pat ient is taking since last appointment. Please update med list. Thanks!!
--- OUTSIDE RECORDS SUMMARY | 2024-10-14 11:00 | XMS_ITS ---
Author Organization [facility] Address [address] [place] [address] Care Team Providers Care It Risk Advisor Name Role Phone SHAHID Kumar Robbin Primary Care Provider UnavailEvelin Davey Unavailable [phone] Evelin Gaona Unavailable [phone] Allergies Allergen (clinical drug ingredient) Drug/Non Drug Allergy documented on EMR Reaction Allergy Type Onset Date Status Substance with sulfonamide structure and antibacterial mechanism of action (substance) Sulfa Antibiotics Unknown Drug Allergy Active REASON FOR VISIT Bladder f/u, Sx/s:, Concerns:, NG, MA Medications Medication SIG (Take, Route, Frequency, Duration) Notes Start Date End Date Status Sodium Chloride 5% ointment Ac tive Simvastatin 20 MG 1 tablet in the evening Orally Once a day Active Xarelto 20 MG 1 tablet with food Orally Once a day Active Vitamin D Active Gemtesa 75 MG 1 tablet Orally Once a day; Duration: 90 days 05/28/2024 Active Furosemide 20 MG 1 tablet Orally Once every other day Active Famotidine 20 MG 1 tablet at bedtime as needed Orally Once a day Active Escitalopram Oxalate 10 MG 1 tablet Orally Once a day Active Acetaminophen Active oxyBUTYnin Chloride 5 MG 1 tablet Orally Twice a daily; Duration: 90 days 02/07/2024 Active Metoprolol Succinate ER 50 MG 1 tablet Orally Once a day Active Potassium Chloride ER 10 MEQ 1 tablet with food Orally Twice a day Active [place] 3 Active Social History Tobacco Use: Social History Observation Description Date Details (start date - stop date) Never Smoker NA - NA Tobacco Control (Standard) Question Answer Notes Tobacco use: Nonsmoker Encounters Encounter Location Date Provider Diagnosis [facility] [address] [place] [address] 10/14/2024 Evelin Gaona Plan Of Treatment Next Appt Details Provider Name:Evelin Gaona, 1 01:30:00 PM, [address], [place], [address], Provider Name:Evelin Gaona, 1 02:30:00 PM, [address], [place], [address], Provider Name:Evelin Gaona, 1 01:30:00 PM, [address], [place], [address], Provider Name:Evelin Gaona, 1 04/25/2024 01:30:00 PM, [address], [place], [address], Provider Name:Evelin Gaona, 1 05/02/2024 01:30:00 PM, [address], [place], [address], Provider Name:Evelin Gaona, 1 05/09/2024 01:30:00 PM, [address], [place], [address], Provider Name:Evelin Gaona, 1 05/16/2024 01:30:00 PM, [address], [place], [address], Provider Name:Evelin Gaona, 1 05/24/2024 01:30:00 PM, [address], [place], [address], Provider Name:Evelin Gaona, 1 05/31/2024 01:30:00 PM, [address], [place], [address], Provider Name:Evelin Gaona, 1 06/07/2024 01:30:00 PM, [address], [place], [address], Provider Name:Evelinrobson Gaona, 1 01:30:00 PM, [address], [place], [address], Provider Name:Evelin Gaona, 0 04/27/2025 01:30:00 PM, [address], [place], [address], Provider Name:Evelin Gaona, 0 05/04/2025 01:30:00 PM, [address], [place], [address], Provider Name:Evelin Gaona, 0 05/11/2025 01:30:00 PM, [address], [place], [address], Progress Notes * ANETTEFuentesOB:1945 (79 yo F)Acc No.[id number]:10/14/2024 Patient: Racquel QUINTANILLA Provider: Jose Gaona DNP :1945 A ge:78 Y S ex:Female Date:10/14/2024 Address:[address] [place], [place] [id number] Pcp:SHAHID Darling Subjective: * Chief Complaints: * 1 . Bladder f/u. 2. Sx/s:. 3. Concerns:. 4. MARTA ZACRAIAS. * HPI: B ladder Concern: 06/22/24: Patient reportedly was still taking Oxybutynin and did not roll picker Gemtesa. Only medication patient has taken is Oxybutynin. Myrbetriq, Gemtesa, and Tropsium too expensive. Bladder Follow-up Gilson manohar presents today for u rge urinary incontinence follow-up (prior to today, last follow up was in 12/2023). T humera she is doing well. S he denies new concerns today U rinary symptoms are currently s table H er current treatment plan includes m edication,pelvic floor physical therapy,limiting or eliminating bladder irritants C urrent medication(s) is/are: O xybutynin 5mg, orally, 1 tablet, twice daily M edication start date: R eported medication side effects: D ry mouth * Medical History: H ypertension, Arthritis, Cancer, Pelvic organ prolapse (surgically corrected). 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 B irth Control: M enopause. S exual Activity N ot currently sexually active. S exually Tranmitted Disease (STD) N one. * OB History: G PAL: G [id number]. P regnancy # 1: 1 968, Female, [...] food Orally Twice a day , Taking [place] 3 , Taking Metoprolol Succinate ER 50 [...] of Sonia Gaona CNP on 01/11/2025 at 01:23 PM CDT Sign off status: Pending * Provider: Jose Gaona DNP Date: 0 10/14/2024 Generated for Kendrick zacarias/Sabine/Judit on: 0 01/11/2025 01:23 PM CDT History and Physical Notes * HPI (History of Present Illness) Category Sub-Category Detail Notes Category Not es Bladder Concern Bladder Follow-up Patient presen ts today for: urge urinary incontinence follow-up (prior to today, last follow up was in 12/2023). Today she is doing well.: Sh e denies new concerns today Urinary symptoms are currently: stable Her current treatment plan i ncludes: medication,pelvic floor physical therapy,limiting or eliminating bladder irritants Current medication(s) is/are:: Oxybutynin 5mg, orally, 1 tablet, twice daily Medication start date:: 02/02/2025 Reported medication side effects:: Dry mouth
--- OUTSIDE RECORDS SUMMARY | 2024-12-22 10:00 | XMS_ITS ---
Author Organization [facility] Address [address] [place] [address] Care Team Providers Care Core Mounter Name Role Phone SHAHID Kumar Robbin Primary Care Provider UnavailEvelin Davey Unavailable [phone] Evelin Gaona Unavailable [phone] Allergies Allergen (clinical drug ingredient) Drug/Non Drug Allergy documented on EMR Reaction Allergy Type Onset Date Status Substance with sulfonamide structure and antibacterial mechanism of action (substance) Sulfa Antibiotics Unknown Drug Allergy Active REASON FOR VISIT 1 year Bladder f/u, Sx/s: still has incontinence, Concerns: does not want to continue Gemtesa as itis not doing anything, NG, MA Medications Medication SIG (Take, Route, Frequency, Duration) Notes Start Date End Date Status Xarelto 20 MG 1 tablet with food Orally Once a day Active Vitamin D Unknown Spironolactone 25 MG 1 tablet Orally Onc e a day Active Sodium Chloride 5% ointment Un known Acetaminophen Unknow n Famotidine 20 MG 1 tablet at bedtime as needed Orally Once a day Active Escitalopram Oxalate 10 MG 1 tablet Orally Once a day Active Furosemide 20 MG 1 tablet Orally Once every other day Active Potassium Chloride ER 10 MEQ 1 tablet with food Orally Twice a day Unknown Treece 3 Unknown Simvastatin 20 MG 1 tablet in the evening Orally Once a day Active Metoprolol Succinate ER 100 MG 1 tablet Orally twice a day Active Social History Tobacco Use: Social History Observation Description Date Details (start date - stop date) Never Smoker NA - NA Tobacco Control (Standard) Question Answer Notes Tobacco use: Nonsmoker Problems Problem Type SNOMED Code ICD Code Onset Dates Problem Status W/U Status Risk Notes Problem Overactive bladder (190559309) Overactive bladder (N32.81) Active confirmed Vital Signs Blood pressure systolic 96 mm Hg 12/23/19 25 Blood pressure diastolic 78 mm Hg 025 Height 60 in 12/22/2024 Weight 160.8 lbs 12/22/2024 BMI 31.4 kg/m2 12/22/2024 Encounters Encounter Location Date Provider Diagnosis [facility] [address] [place] [address] 12/22/2024 [facility] Urge incontinence of urine N39.41 and Overactive bladder N32.81 Assessments Encounter Date Diagnosis (ICD Code) Assessment Notes Treatment Notes Treatment Clinical Notes Section Notes 12/22/2024 Urge incontinence of urine (ICD-10 - N39.41) Racquel, a 79-year-old female, presents for follow-up of poorly controlled urge urinary incontinence, with failed medication trials and inconsistent adherence to lifestyle modifications and pelvic floor physical therapy. Urge Urinary Incontinence Assessment: Patient has a confirmed diagnosis of urge urinary incontinence based on urodynamic testing and voiding diary. Previous treatments including lifestyle modifications, pelvic floor physical therapy, and medications (Gemtesa 75 mg daily since January 17, 2024, and oxybutynin) have been ineffective. Patient reports urinating more than 10 times daily and using diapers due to incontinence. Mobility issues contribute to difficulty reaching the bathroom in time. Current fluid intake is insufficient at 16 ounces daily. Plan: - Discontinue Gemtesa 75 mg daily due to lack of efficacy - Initiate Percutaneous Tibial Nerve Stimulation (PTNS) therapy - Once weekly for 12 weeks. Discussed ongoing therapy will be needed and scheduled. - Discussed risks, benefits, and alternatives with patient - Patient agreed to proceed with PTNS - Increase fluid intake to 64 ounces daily, primarily water and milk - Limit coffee intake to one cup daily - Implement bladder training with urge suppression techniques - Obtain urine specimen for urinalysis and culture to rule out urinary tract infection. Patient will return tomorrow to leave a specimen. - Schedule follow-up appointment after completion of 12-week PTNS course - Provided patient with educational handout on PTNS therapy 12/22/2024 Overactive bladder (ICD-10 - N32.81) 12/22/2024 Other Time spent on patient care including - review of previous records - preparation for visit - ordering medications, labs or imaging - documenting visit - discussion of care with another health child care team lead if indicated - direct face to face time with patient including obtaining relevant history, physical exam and discussion of plan of care Total time was 47 minutes spent including some or all of above listed required for care of patient talking about diagnosis, treatment and plan of care with the patient as listed in the treatment portion of the note Plan Of Treatment Medication Medication Name Sig Start Date Stop Date Notes oxyBUTYnin Chloride 5 MG 1 tablet Orally Twice a daily Gemtesa 75 MG 1 tablet Orally Once a day 05/28/2024 Treatment Notes Assessment Notes Urge incontinence of urine Racquel, a 79-year-old female, presents for follow-up of poorly controlled urge urinary incontinence, with failed medication trials and inconsistent adherence to lifestyle modifications and pelvic floor physical therapy. Urge Urinary Incontinence Assessment: Patient has a confirmed diagnosis of urge urinary incontinence based on urodynamic testing and voiding diary. Previous treatments including lifestyle modifications, pelvic floor physical therapy, and medications (Gemtesa 75 mg daily since January 17, 2024, and oxybutynin) have been ineffective. Patient reports urinating more than 10 times daily and using diapers due to incontinence. Mobility issues contribute to difficulty reaching the bathroom in time. Current fluid intake is insufficient at 16 ounces daily. Plan: - Discontinue Gemtesa 75 mg daily due to lack of efficacy - Initiate Percutaneous Tibial Nerve Stimulation (PTNS) therapy - Once weekly for 12 weeks. Discussed ongoing therapy will be needed and scheduled. - Discussed risks, benefits, and alternatives with patient - Patient agreed to proceed with PTNS - Increase fluid intake to 64 ounces daily, primarily water and milk - Limit coffee intake to one cup daily - Implement bladder training with urge suppression techniques - Obtain urine specimen for urinalysis and culture to rule out urinary tract infection. Patient will return tomorrow to leave a specimen. - Schedule follow-up appointment after completion of 12-week PTNS course - Provided patient with educational handout on PTNS therapy Next Appt Details Follow Up: soonest available , Reason: Provider Name:Evelin Gaona, 1 01:30:00 PM, [address], [place], [address], Provider Name:Evelin Jimenez, 1 02:30:00 PM, [address], [place], [address], Provider Name:Evelinrobson Gaona, 1 01:30:00 PM, [address], [place], [address], Provider Name:Evelin Gaona, 1 04/25/2024 01:30:00 PM, [address], [place], [address], Provider Name:Evelin Gaona, 1 05/02/2024 01:30:00 PM, [address], [place], [address], Provider Name:Evelin Gaona, 1 05/09/2024 01:30:00 PM, [address], [place], [address], Provider Name:Evelin Gaona, 1 05/16/2024 01:30:00 PM, [address], [place], [address], Provider Name:Evelin Jimenez, 1 05/24/2024 01:30:00 PM, [address], [place], [address], Provider Name:Evelin Gaona, 1 05/31/2024 01:30:00 PM, [address], [place], [address], Provider Name:Evelin Gaona, 1 06/07/2024 01:30:00 PM, [address], [place], [address], Provider Name:Evelin Jimenez, 1 01:30:00 PM, [address], [place], [address], Provider Name:Evelin Gaona, 0 04/27/2025 01:30:00 PM, [address], [place], [address], Provider Name:Evelin Gaona, 0 05/04/2025 01:30:00 PM, [address], [place], [address], Provider Name:Evelin Gaona, 0 05/11/2025 01:30:00 PM, [address], [place], [address], Progress Notes * Guanakito CHEEMAeDOB:1945 (79 yo F)Acc No.[id number]:12/22/2024 Patient: Racquel QUINTANILLA Provider: Jose Gaona DNP :1945 A ge:79 Y S ex:Female Date:12/22/2024 Address:[address] [place], [place] [id number] Pcp:SHAHID Darling Subjective: * Chief Complaints: * 1 . 1 year Bladder f/u. 2. Sx/s: still has incontinence. 3. Concerns: does not want to continue Gemtesa as it is not doing anything. 4. MARTA ZACARIAS. * HPI: * General: Following up on urge urinary incontinence. Is taking either oxybutyning, gemtesa, or both. UUI was poorly controlled at last appointment. Last f/u was on 01/17/24. B ladder Concern: Bladder Concern P atient presents today for F ollow-up for poorly controlled urge urinary incontinence, constipation, and mobility limitations affecting ability to reach the bathroom in time. D ate of Initial Bladder Consult 0 10/02/2023 P urpose of today's visit E valuation and management of ongoing urge urinary incontinence, review of response to Gemtesa, and discussion of next treatment steps. M ain concern P ersistent, poorly controlled urge urinary incontinence significantly impacting quality of life. O nset: 2 020 S rand onset bladder concern have S ymptoms have remained poorly controlled. She continues to experience urgency and frequency (>10 times per day) with urinary incontinence severe enough to require diapers. Mobility limitations prevent her from reaching the bathroom in time. Constipation further complicates her bladder symptoms. P rior therapies T he patient has previously trialed multiple medications and conservative measures for her urinary incontinence. Oxybutynin was discontinued due to bothersome dry mouth and lack of efficacy. She has been on Gemtesa 75 mg daily since December 2023, but reports no improvement and wishes to discontinue due to ineffectiveness. Trospium and Myrbetriq were considered but were cost prohibitive. She has also participated in pelvic floor physical therapy in the past, though she was inconsistent with the home exercise program and eventually discontinued sessions. Lifestyle modifications have also been attempted with limited benefit. F luid intake: ~ 16 oz of water daily; intentionally restricts fluids to limit urinary frequency. R eports her bladder concern(s) c ontrol her life U rine culture(s): 0 12/04/2023 urine culture grew non-uropathogenic Gram positive organism, likely colonizer. Patient was unable to leave urine specimen today. Will return to clinic tomorrow for updated UA/UC. V oiding diary impression: D loni demonstrates frequent voids and multiple episodes of urgency and urge urinary incontinence throughout the day. Patient voids small to moderate volumes (50-200 mL) with urinary leakage occurring both while walking to the bathroom and with urge upon reaching the bathroom. Leaks are typically severe (severity 3, more than a splash) and associated urgency is rated moderate to severe. Patient requires multiple pads/diapers daily. P VR(s) N ormal (<100 mL). U rodynamic testing 0 12/04/23: Peak flow rate 2.8 mL/s, voided volume 27.6 mL, residual urine 70 mL; Bladder capacity 80.9 mL with abnormal accommodation and inappropriate rising pressures; Multiple uninhibited bladder contractions with loss of bladder control throughout testing; Maximum urethral closure pressure 23 cm H2O, normal urethral pressure profile; No leak with valsalva or cough in semi-seated or standing position; Patient voided 60 mL after catheter removal; EMG normal(See scanned report for full details and graphic tracing.) O ther work-up: H istory of seven hernia surgeries, most recent in [place] with bead placement to prevent recurrence. Patient questions whether repeated anesthesia exposures have contributed to her current cognitive concerns. C urrent treatment modalities G emtesa 75 mg PO daily (ineffective, patient wishes to discontinue). * ROS: G eneral: Positive for cognitive issues. Gastrointestinal: Positive for constipation. Genitourinary: Positive for urinary incontinence, urinary frequency (more than 10 times a day). Musculoskeletal: Positive for mobility issues. * Medical History: H ypertension, Arthritis, Cancer, Pelvic organ prolapse (surgically corrected). 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 B irth Control: M enopause. S exual Activity N ot currently sexually active. S exually Tranmitted Disease (STD) N one. * OB History: G PAL: G [id number]. P regnancy # 1: 1 968, Female, [...] drink alcohol?: No. * Medications: T aking Spironolactone 25 MG Tablet 1 tablet Orally Once a day , Taking Xarelto 20 MG Tablet 1 tablet with food Orally Once a day , Taking Simvastatin 20 MG Tablet 1 tablet in the evening Orally Once a day , Taking Metoprolol Succinate ER 100 MG Tablet Extended Release 24 Hour 1 tablet Orally twice a day , Taking Furosemide 20 MG Tablet 1 tablet Orally Once every other day , Taking Famotidine 20 MG Tablet 1 tablet at bedtime as needed Orally Once a day , Taking Escitalopram Oxalate 10 MG Tablet 1 tablet Orally Once a day , Taking Gemtesa 75 MG Tablet 1 tablet Orally Once a day , Unknown Vitamin D , Unknown Sodium Chloride , Notes to Pharmacist: 5% ointment, Unknown Potassium Chloride ER 10 MEQ Tablet Extended Release 1 tablet with food Orally Twice a day , Unknown Treece 3 , Unknown Acetaminophen , Unknown oxyBUTYnin Chloride 5 MG Tablet 1 tablet Orally Twice a daily , Medication List reviewed and reconciled with the patient * Allergies: S ulfa Antibiotics. Objective: * Vitals: H t: 60 in, Wt:160.8lbs, BP:96/78mm Hg, BMI:31.4Index. * Examination: * General Examination: GENERAL APPEARANCE: i n no acute distress, alert, well hydrated, in no distress. Assessment: * Assessment: 1. O veractive bladder - N32.81 2 . U rge incontinence of urine - N39.41 (Primary) Plan: * Treatment: 2. O thers Clinical Notes: Time spent on patient care including - review of previous records - preparation for visit - ordering medications, labs or imaging - documenting visit - discussion of care with another health child care team lead if indicated - direct face to face time with patient including obtaining relevant history, physical exam and discussion of plan of care Total time was 47 minutes spent including some or all of above listed required for care of patient talking about diagnosis, treatment and plan of care with the patient as listed in the treatment portion of the note * Preventive Medicine: YOUR PREVENTIVE WELLNESS PLAN: [...] was last done on: 0 10/02/2023 * Follow Up: s oonest available * Images: Billing Information: * Visit Code: 45705 OFFICE O/P EST HI 40 MIN. * Procedure Codes: * Sign off status: Completed true * Provider: Jose Gaona DNP Date: 12/22/2024 Generated for Kendrick zacarias/Sabine/Janaitting on: 01/11/2025 01:22 PM CDT History and Physical Notes * HPI (History of Present Illness) Category Sub-Category Detail Notes Category Not es Bladder Concern Bladder Concern Patient presents today for: Follow-up for poorly controlled urge urinary incontinence, constipation, and mobility limitations affecting ability to reach the bathroom in time. Date of Initial Bladder Consult: 024 Purpose of today's visit: Evaluation and management of ongoing urge urinary incontinence, review of response to Gemtesa, and discussion of next treatment steps. Main concern: Persistent, poorly c ontrolled urge urinary incontinence significantly impacting quality of life. Onset:: 2019 Since onset bladder concern have: Sympto ms have remained poorly controlled. She continues to experience urgency and frequency (>10 times per day) with urinary incontinence severe enough to require diapers. Mobility limitations prevent her from reaching the bathroom in time. Constipation further complicates her bladder symptoms. Prior therapies: The patient has prev iously trialed multiple medications and conservative measures for her urinary incontinence. Oxybutynin was discontinued due to bothersome dry mouth and lack of efficacy. She has been on Gemtesa 75 mg daily since December 2023, but reports no improvement and wishes to discontinue due to ineffectiveness. Trospium and Myrbetriq were considered but were cost prohibitive. She has also participated in pelvic floor physical therapy in the past, though she was inconsistent with the home exercise program and eventually discontinued sessions. Lifestyle modifications have also been attempted with limited benefit. Fluid intake:: ~16 oz of water zuleyka y; intentionally restricts fluids to limit urinary frequency. Reports her bladder concern( s): control her life Urine culture(s):: 12/04/2023 urine cul ture grew non-uropathogenic Gram positive organism, likely colonizer. Patient was unable to leave urine specimen today. Will return to clinic tomorrow for updated UA/UC. Voiding diary impression:: Diary demonst rates frequent voids and multiple episodes of urgency and urge urinary incontinence throughout the day. Patient voids small to moderate volumes (50-200 mL) with urinary leakage occurring both while walking to the bathroom and with urge upon reaching the bathroom. Leaks are typically severe (severity 3, more than a splash) and associated urgency is rated moderate to severe. Patient requires multiple pads/diapers daily. PVR(s): Normal (<100 mL). Urodynamic testin12/04/23: Peak flow rate 2.8 mL/s, voided volume 27.6 mL, residual urine 70 mL; Bladder capacity 80.9 mL with abnormal accommodation and inappropriate rising pressures; Multiple uninhibited bladder contractions with loss of bladder control throughout testing; Maximum urethral closure pressure 23 cm H2O, normal urethral pressure profile; No leak with valsalva or cough in semi-seated or standing position; Patient voided 60 mL after catheter removal; EMG normal (See scanned report for full details and graphic tracing.) Other work-up:: History of seven her lino surgeries, most recent in [place] with bead placement to prevent recurrence. Patient questions whether repeated anesthesia exposures have contributed to her current cognitive concerns. Current treatment modalities: Gemtesa 75 mg PO daily (ineffective, patient wishes to discontinue). Examination Category Sub-Category Detail Notes Category Not es *General Examination GENERAL APPEARANCE: in no a cute distress, alert, well hydrated, in no distress
--- OUTSIDE RECORDS SUMMARY | 2024-12-24 11:00 | XMS_ITS ---
Author Organization [facility] Address [address] [place] [address] Care Team Providers Care Biomedical Engineering Internship Name Role Phone SHAHID Kumar Robbin Primary Care Provider Unavaila Evelin Cali Unavailable [phone] Evelin Gaona Unavailable [phone] Results Component Value Reference Range Notes URINALYSIS MICROSCOPIC Reviewed date:12/25/2024 02:56:34 PM Interpretation: Performing Lab:[id number] [facility] CenterCzorUY[address] Chuck Pascal Notes/Report: 0; 0 WBC NONE SEEN < OR = 5 /HPF RBC 0-2 < OR = 2 /HPF SQUAMOUS EPITHELIAL CELLS 0-5 < OR = 5 /HPF BACTERIA NONE SEEN NONE SEEN /HPF HYALINE CAST NONE SEEN NONE SEEN /LPF NOTE This urine was analyzed for the presence of WBC, RBC, bacteria, casts, and other formed elements. Only those elements seen were reported. CULTURE, URINE, ROUTINE Reviewed date:12/26/2024 04:36:51 PM Interpretation: Performing Lab:[id number] [facility], [facility] CenterKfdqGX[address] Chuck Pascal Notes/Report: 0; 0 CULTURE, URINE, ROUTINE SEE NOTE Specimen Quality: Adequate CULTURE, URINE, ROUTINE Micro Number: [id number] Test Status: Final Specimen Source: Urine, clean catch Result: No Growth Urinalysis, Routine () Reviewed date:12/25/2024 02:56:34 PM Interpretation: Performing Lab: Notes/Report: Urine Color Yellow Yellow - Tiffanie Appearance Clear Clear - Glucose neg Bilirubin neg Ketone neg Specific Nebo 1.020 Blood neg pH 6.0 Protein neg Urobilinogen 1 Nitrite neg Leukocytes neg REASON FOR VISIT UA/UA/UC Medications Medication SIG (Take, Route, Frequency, Duration) Notes Start Date End Date Status Simvastatin 20 MG 1 tablet in the evening Orally Once a day Active Potassium Chloride ER 10 MEQ 1 tablet with food Orally Twice a day Unknown [place] 3 Unknown Metoprolol Succinate ER 100 MG 1 tablet Orally twice a day Active Furosemide 20 MG 1 tablet Orally Once every other day Active Xarelto 20 MG 1 tablet with food Orally Once a day Active Vitamin D Unknown Sodium Chloride 5% ointment Un known Spironolactone 25 MG 1 tablet Orally Onc e a day Active Acetaminophen Unknow n Famotidine 20 MG 1 tablet at bedtime as needed Orally Once a day Active Escitalopram Oxalate 10 MG 1 tablet Orally Once a day Active Encounters Encounter Location Date Provider Diagnosis [address] [place] [id number] 12/24/2024 Evelin Gaona Urge incontinence N39.41 and Overactive bladder N32.81 Assessments Encounter Date Diagnosis (ICD Code) Assessment Notes Treatment Notes Treatment Clinical Notes Section Notes 12/24/2024 Urge incontinence (ICD-10 - N39.41) 12/24/2024 Overactive bladder (ICD-10 - N32.81) Plan Of Treatment Next Appt Details Provider Name:Evelin Gaona, 1 01:30:00 PM, [facility] [place], [address], Provider Name:Evelin Gaona, 1 02:30:00 PM, [facility] [place], [address], Provider Name:Evelin Gaona, 1 01:30:00 PM, [facility] [place], [address], Provider Name:Evelin Gaona 1 04/25/2024 01:30:00 PM, [facility] [place], [address], Provider Name:Evelin Gaona, 1 05/02/2024 01:30:00 PM, [address], [place], [address], Provider Name:Evelin Gaona, 1 05/09/2024 01:30:00 PM, [address], [place], [address], Provider Name:Evelin Gaona, 1 05/16/2024 01:30:00 PM, [address], [place], [address], Provider Name:Evelin Gaona, 1 05/24/2024 01:30:00 PM, [address], [place], [address], Provider Name:Evelin Gaona, 1 05/31/2024 01:30:00 PM, [address], [place], [address], Provider Name:Evelin Gaona, 1 06/07/2024 01:30:00 PM, [address], [place], [address], Provider Name:Evelin Gaona, 1 01:30:00 PM, [address], [place], [address], Provider Name:Evelin Gaona, 0 04/27/2025 01:30:00 PM, [address], [place], [address], Provider Name:Evelin Gaona, 0 05/04/2025 01:30:00 PM, [address], [place], [address], Provider Name:Evelin Gaona, 0 05/11/2025 01:30:00 PM, [address], [place], [address], Progress Notes * Fuentes CHEEMAOB:1945 (79 yo F)Acc No.[id number]:12/24/2024 Patient: Racquel QUINTANILLA Provider: Jose Gaona DNP :1945 A ge:79 Y S ex:Female Date:12/24/2024 Address:[address] [place], [place] [id number] Pcp:SHAHID Darling Subjective: * Chief Complaints: * 1 . UA/UA/UC. * Medical History: * Medications: T aking Spironolactone 25 MG [...] food Orally Twice a day , Unknown [place] 3 , Unknown Acetaminophen Objective: * Vitals: Assessment: * Assessment: 1. O veractive bladder - N32.81 2 . U rge incontinence - N39.41 (Primary)? Plan: * Treatment: Value Reference Range W BC NONE SEEN < OR = 5 - /HPF * R BC 0-2 < OR = 2 - /HPF * S QUAMOUS EPITHELIAL CELLS 0-5 < OR = 5 - /HPF * B ACTERIA NONE SEEN NONE SEEN - /HPF * H YALINE CAST NONE SEEN NONE SEEN - /LPF * Evelin Gaona 12/25/2024 02:5 6:06 PM CDT > Urine culture pending. RT RANDEE ?LAB: CULTURE, URINE, ROUTINE (Collection Date & Time - 12/24/2024 04:06 PM) * Value Reference Range C ULTURE SEE NOTE - * Evelin Gaona 12/25/2024 02:5 6:06 PM CDT > Urine culture pending. RT Evelin Kwan 12/26/2024 04:36:37 PM CDT > Your urine culture result is negative for a urinary tract infection. Take [facility] DNP ?LAB: Urinalysis, Routine (IH) (Collection Date & Time - 12/24/2024)* Value Reference Range U rine Color Yellow Yellow - Tiffanie * A ppearance Clear Clear - * G lucose neg * B ilirubin neg * K etone neg * S pecific Nebo 1.020 * B lood neg * p H 6.0 * P rotein neg * U robilinogen 1 * N itrite neg * L eukocytes neg * [facility] 12/25/2024 02:5 6:06 PM CDT > Urine culture pending. RT DNP 2.?Overactive bladder?LAB: URINALYSIS MICROSCOPIC (Collection Date & Time - 12/24/2024 04:06 PM) * Value Reference Range W BC NONE SEEN < OR = 5 - /HPF * R BC 0-2 < OR = 2 - /HPF * S QUAMOUS EPITHELIAL CELLS 0-5 < OR = 5 - /HPF * B ACTERIA NONE SEEN NONE SEEN - /HPF * H YALINE CAST NONE SEEN NONE SEEN - /LPF * [facility] 12/25/2024 02:5 6:06 PM CDT > Urine culture pending. RT DNP ?LAB: CULTURE, URINE, ROUTINE (Collection Date & Time - 12/24/2024 04:06 PM) * Value Reference Range C ULTURE SEE NOTE - * [facility] 12/25/2024 02:5 6:06 PM CDT > Urine culture pending. RT DNP [facility] 12/26/2024 04:36:37 PM CDT > Your urine culture result is negative for a urinary tract infection. Take [facility] DNP ?LAB: Urinalysis, Routine (IH) (Collection Date & Time - 12/24/2024)* Value Reference Range U rine Color Yellow Yellow - Tiffanie * A ppearance Clear Clear - * G lucose neg * B ilirubin neg * K etone neg * S pecific Nebo 1.020 * B lood neg * p H 6.0 * P rotein neg * U robilinogen 1 * N itrite neg * L eukocytes neg * Evelin Gaona 12/25/2024 02:5 6:06 PM CDT > Urine culture pending. RT DNP * Procedure Codes: 8 1003 URINALYSIS, AUTO, W/O SCOPE * Images: Billing Information: * Visit Code: * Procedure Codes: 02931 URINALYSIS, AUTO, W/O SCOPE. * Sign off status: Completed Addendum: * true * Provider: Jose Gaona DNP Date: 0 12/24/2024 Generated for Kendrick zacarias/Sabine/Judit on: 0 01/11/2025 01:21 PM CDT
--- OUTSIDE RECORDS SUMMARY | 2025-01-11 13:20 | XMS_ITS | Clinical Summary ---
Author Organization [facility] Address [address], [place] [address] Care Team Providers Care Editorial Cartoonist Name Role Phone Unassigned, Provider Primary Care Provider Unava ilable Source Comments You are receiving this document as you are listed as the primary care provider,follow-up provider, or the patient has been referred to you for consultation.This is in compliance with the Medicare and[facility] EHR Incentive Program,which states Providers who transition their patient to another setting of careor provider of care or refers their patient to another provider of care shouldprovide summary care record for each transition of care or referral. CLARED Allergies Active Allergy Reactions Criticality Noted Date Comments Sulfa Antibiotics 04/29/2017 Medications furosemide (LASIX) 40 MG tablet Take 40 mg by mouth daily. Active atenolol (TENORMIN) 25 MG tablet Take 25 mg by mouth daily. Active cholecalciferol (VITAMIND3) 2000 UNITS tablet Take 2,000 Units by mouth daily. Active potassium chloride 10 MEQ controlled release capsule Take 10 mEq by mouth two times a day. Active escitalopram oxalate (LEXAPRO) 10 MG tablet Take 10 mg by mouth daily. Active Social History Tobacco Use Types Packs/Day Years Used Date Smoking Tobacco: Unknown Comments Unknown Sex and Gender Information Value Date Recorded Sex Assigned at Not on file Legal Sex Female 4:22 AM CDT Gender Identity Not on file Sexual Orientation Not on file Plan of Treatment Health Maintenance Due Date Last Done Comments Hep C Screening (Preventive Services) 1945 Medicare Annual Wellness Visit 1945 DTaP/Tdap/Td Vaccine (1 - Tdap) 1964 Pneumococcal Vaccine 50+ Yrs (1 of 1 - PCV) 11/07/1995 Zoster/Shingles Vaccine (1 of 2) 11/07/1995 Dexa 2010 RSV Vaccine (1 - 1-dose 75+ series) 2020 COVID-19 Vaccine (1 - 2023-2 5 season) 2024 Influenza Vaccine (#1) 2024 HepA Vaccine Aged Out No longer eligi ble based on patient's age to complete this topic HepB Vaccine Aged Out No longer eligi ble based on patient's age to complete this topic Hib Vaccine Aged Out No longer eligi ble based on patient's age to complete this topic IPV (Polio) Vaccine Aged Out No longe r eligible based on patient's age to complete this topic MCV4 Vaccine Aged Out No longer eligi ble based on patient's age to complete this topic Meningococcal B Vaccine Aged Out No l onger eligible based on patient's age to complete this topic Insurance MEDICARE MANAGED CARE [facility] [employer] Care Teams Editorial Cartoonist Relationship Specialty Start Date End Date Unassigned, Provider [address] [place] [address] PCP - General 01/24/00
--- OUTSIDE RECORDS SUMMARY | 2025-01-11 13:20 | XMS_ITS | CCD ---
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
--- OUTSIDE RECORDS SUMMARY | 2025-01-11 13:20 | XMS_ITS | Clinical Summary ---
Author Organization [facility] Address [address] [place] [address] Care Team Providers Care Mobile Development Manager Name Role Phone Ginny Walker MANAGER NEWS Unavailable [phone] Eloise Malave MD Primary Care Provider [phone] Clarisse Barrios RN Unavailable [phone] Allergies Active Allergy Reactions Criticality Noted Date Comments Amoxicillin Nausea Only 07/16/2007 Cephalexin Rash 07/14/2024 Over abdomen Sulfa (Sulfonamide Antibiotics) Rash,Throat Swelling/Closing High 07/07/2007 Medications cholecalciferol (VITAMIN D) 1,000 unit tablet Take 1,000 units by mouth once daily. Active Graduated Compression StockingsIndicatio ns:Leg edema 20-30 mmHg knee high compression stockings. Wear as directed. 3 Packet 3 08/16/19 21 Active Docosahexanoic Acid-Eicosapent 120-180 mg cap Take 1 g by mouth once daily. Active acetaminophen (TYLENOL EXTRA STRGTH) 500 mg tablet Take 500 mg by mouth every 6 hours if needed for Pain. Max acetaminophen dose: 4000mg in 24 hrs. Active carboxymethylcellu lose sodium (Artificial Tears, cmc,) 1 % drop Place 1-2 Drops into the eye(s) 4 times daily if needed (dry eyes). Active oxygen-air delivery systems (HOME OXYGEN)Indications :Acute on chronic congestive heart failure, unspecified heart failure type (HC) Oxygen for home use. Liters per minute: 2 per nasal cannula. Frequency of use: With activity;. Length of need: 999 Months. 1 Each 04/10/20 24 Active vibegron (GEMTESA) 75 mg tabletIndications: Mixed stress and urge urinary incontinence Take 1 Tablet (75 mg) by mouth once daily. 90 Tablet 05/20/19 25 Active furosemide (LASIX) 20 mg tabletIndications: Chronic diastolic (congestive) heart failure (HC) Take 1 Tablet (20 mg) by mouth once daily in the morning. Take 1 tablet (20mg) daily PO. 30 Tablet 05/20/19 25 Active ketoconazole 2 % cream APPLY CREAM TOPICALLY ONCE DAILY FOR 12 WEEKS 05/22/19 25 Active escitalopram oxalate 10 mg tabletIndications: Anxiety TAKE ONE TABLET BY MOUTH IN THE MORNING 90 Tablet 2 10/07/19 25 Active famotidine 20 mg tabletIndications: Anxiety,Gastro-eso phageal reflux disease without esophagitis Take 1 Tablet (20 mg) by mouth two times daily. 180 Tablet 2 10/07/19 25 Active metoprolol succinate 100 mg Sustained-Release tabletIndications: Atrial flutter with rapid ventricular response (HC) Take 1 Tablet (100 mg) by mouth two times daily. 180 Tablet 2 10/07/19 25 Active simvastatin 20 mg tabletIndications: Mixed hyperlipidemia Take 1 Tablet (20 mg) by mouth once daily with evening meal. 90 Tablet 2 10/07/19 25 Active spironolactone 25 mg tabletIndications: Chronic diastolic (congestive) heart failure (HC) Take 1 Tablet (25 mg) by mouth once daily in the morning. 90 Tablet 10/07/19 25 Active Xarelto 20 mg tabletIndications: PE (pulmonary thromboembolism) (HC) Take 1 Tablet (20 mg) by mouth once daily with evening meal. 90 Tablet 3 10/07/19 25 Active predniSONE (DELTASONE) 20 mg tabletIndications: Acute non-recurrent sphenoidal sinusitis Take 2 tablets by mouth once daily after food for 2 days for swelling 4 Tablet 12/17/19 25 Active doxycycline 100 mg tabletIndications: Acute non-recurrent sphenoidal sinusitis Take 1 Tablet (100 mg) by mouth two times daily for 10 days. 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 RAFAEL (obstructive sleep apnea) 12/28/2020 Overview (12/02/2022): 12/14/2020 [facility] (183.0 lbs) - AHI 41.4, RDI 43.3, Supine AHI 40.3, REM AHI 67.4, Low O2 65.0%, Time Spent </=88% 19.6 minutes Hyperlipidemia LDL goal <100 09/02/2020 Parkinsonism 09/01/2020 Major depressive disorder, s brittany episode, in full remission 07/22/2020 Paroxysmal atrial fibrillation 01/23/2019 Gastroesophageal reflux disease 07/08/2018 Overview (12/02/2022): Gastroesophageal Reflux Overview: Gastroesophageal Reflux Gastroesophageal Reflux Overview: Gastroesophageal Reflux 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 Small bowel obstruction 12/02/2016 History of DVT of lower extremity 10/02/2016 Chronic diastolic (congestive) heart failure Thrombocytosis 08/10/2016 Elevated alkaline phosphatase level 08/10/2016 Incarcerated ventral hernia 07/25/2016 ACP (advance care planning) 10/23/2014 Overview (07/30/2016): Patient has identified Health Care Agent(s): Yes Add Health Care Agents: Yes Health Care Agent(s): Primary Health Care Agent: Nel Chappell Relationship: Daughter Secondary Health Care Agent: Aman Jones Relationship: Son ; [phone] Conservator: Relationship: Phone: Guardian: Relationship: Phone: Patient has Advance Care Plan Documents (Health Care Directive, POLST): No, Health Care Packet given to patient and declined. Patient has identified Specific Treatment Preferences: No Specific limits to treatment preferences NOT identified: ASSUME FULL TREATMENT. Primary osteoarthritis of right knee 09/08/2014 Gastro-esophageal reflux disease without esophag itis Essential hypertension Hearing loss Overview (07/04/2021): wears hearing aids Resolved Problems Problem Noted Date Diagnosed Date Resolved Date Acute on chronic diastolic C HF (congestive heart failure) 12/02/2022 05/13/2023 Malignant neoplasm of left b reast in female, estrogen receptor positive 08/26/2018 08/16/2021 Cancer Staging:Clinical stage from 08/26/2018:Stage IA(cT1b, cN0, cM0, G2, ER+, SD+, HER2-) - Signed by Gael Hammond MD on 08/26/2018 Pathologic stage from 10/02/2018:Stage IA(pT1a, pN0(sn), cM0, G2, ER+, SD+, HER2- ) - Signed by Gael Hammond MD on 10/02/2018 Atrial fibrillation 04/22/2018 09/26/19 23 Overview (07/04/2021): post surgery s/p cardioversion 01/22/2019 Breast cancer 04/22/2018 08/16/2021 Overview (07/04/2021): breast Fluid overload 02/08/2017 01/26/2022 S/P laparotomy 02/08/2017 01/26/2022 Primary hypertension 11/16/2016 023 Hypokalemia 10/02/2016 01/26/2022 S/P repair of incancerated v entral hernia on 07/27/[address] Vasquez 09/29/2016 01/26/2022 Abscess of postoperative wou nd of abdominal wall 09/17/2016 01/26/2022 DVT of leg (deep venous thrombosis) 08/31/2016 12/12/2020 S/P repair of incarcerated v entral hernia 07/28/15 08/10/2016 01/26/2022 Postoperative wound infection and dehiscence 7 01/26/2022 Small bowel obstruction 10/23/2014 1010/2021 Aftercare following right kn ee joint replacement surgery 09/20/2014 01/26/2022 CHF (congestive heart failure) 09/14/2014 08/10/2016 Hyponatremia 09/09/2014 01/26/2022 Unspecified essential hypertension 01/26/2022 Pure hypercholesterolemia Unspecified cataract 022 Overview (09/08/2014): left Encounters Date Type Department Care Team Description 01/11/2025 Nurse Triage [facility] [address] [place] [address] Eloise Malave MD Abdominal Injury 01/08/2025 Nurse Triage [facility] [address] [place] [address] Eloise Malave MD Abdomianl swelling and bloating 12/16/2024 9:35 AM CDT Office Visit [facility] [address] [facility] [address] [place] [address] Jhoana Taylor PA Ear Problem 12/16/2024 Travel 10/13/2024 Telephone [facility] [id number] [place] [phone] Nancie Guo AuD Hearing Aid 10/12/2024 12:20 PM CDT Ancillary Procedure [facility] [address] [facility] [address] [place] [address] 10/12/2024 Travel 10/12/2024 Telephone [facility] [address] [place] [address] Eloise Malave MD Results (LAB TEST RESULTS) from Last 3 Months Immunizations Immunization Administration Dates Next Due COVID-19 VACCINE SPIKEVAX (M ODERNA 50MCG/0.5ML) 12YO+ PFS 03/01/2023 COVID-19 vaccine (Moderna 100mcg/0.5mL) PF, MDV 03/15/2021,07/15/2020,06/17/2020 COVID-19 vaccine (Affine-Bio NTech 30mcg/0.3mL) 12YO+ BIVALENT PF, MDV 01/26/2022 Influenza Virus, Unspecified 01/15/2009 Influenza, High-dose Inactivated 024,01/24/2019,01/16/2018,2016,01/02/2016,02/05/2015,02/08/2014,1 06/18/2012,03/05/2012 Influenza, High-dose Quadriv alent Inactivated 02/16/2023,02/24/2021,01/22/2020 Influenza, IIV3 (Age 6-35 mos) 01/15/2009 Influenza, IIV3 (Age >=3 years) 03/02/2011 Influenza, Inactivated AIIV4 (Age 65+ Years) Preserv Free 01/26/2022 Pneumococcal Conj 20-valent (Prevnar 20) 12/20/2023 Pneumococcal Poly,23-Valent (Pneumovax) 08/14/2011 Pneumococcal conj 13-Valent (Prevnar 13) 06/15/2015 Td, Preservative Free (age > = 7 Years) 11/01/2018 Tdap, Unspecified 08/12/2008 Zoster (Shingrix-RZV, recombinant) 08/31/2021, Family History Medical History Relation Name Comments Cancer-prostate Brother doing well Diabetes Brother Hyperlipidemia Brother Diabetes Father Heart Disease Father Hypertension Father Cancer Mother stomach cancer, and htn, cad, hld Coronary artery disease Mother Hyperlipidemia Mother Hypertension Mother Diabetes Other 1 father and brot her Cancer-pancreatic Other 2 maternal c ousin Cancer-prostate Son doing well Cancer-breast No Family History Cancer-ovarian No Family History Relation Name Status Comments Brother Father Mother Other 1 Other 2 Son Social History Tobacco Use Types Packs/Day Years Used Date Smoking Tobacco: Never Smokeless Tobacco: Never Comments:no exposure Alcohol Use Standard Drinks/Week Comments Not Currently 0 (1 standard drink = 0.6 oz pur e alcohol) 1 drink weekly PHQ-2 Answer Date Recorded PHQ-2 TOTAL SCORE 0 10/13/2024 Social Connections Answer Date Recorded Do you often feel lonely or isolated from those around you? 0 04/07/2024 Financial Resource Strain Answer Date R ecorded Difficulty of Paying Living Expenses 3 05/10/2023 Difficulty of Paying Living Expenses Not on file 05/10/2023 Food Insecurity Answer Date Recorded Do you worry your food will run out before you are able to buy more? 1 04/07/2024 Transportation Needs Answer Date Record ed Does lack of transportation keep you from medica l appointments? 1 04/07/2024 Does lack of transportation keep you from work, meetings or getting things that you need? 1 04/07/2024 Housing Stability Answer Date Recorded What is your housing situation today? 1 04/07/2024 Interpersonal Safety Answer Date Record ed Are you being hit, kicked, p ushed or yelled at (see row info)? No 04/07/2024 Interpersonal Safety Abuse - 18 Not on file 04/07/2024 Interpersonal Safety Ambulatory Vulnerability No t on file 04/07/2024 Utilities Answer Date Recorded Do you have trouble paying f or utilities (for example, heat, electricity, water, phone)? 1 04/07/2024 Comments No Sex and Gender Information Value Date Recorded Sex Assigned at Not on file Legal Sex Female 6:53 AM [employer] Gender Identity Not on file Sexual Orientation Not on file Obstetrics History Para Term AB IAB SAB Ectopic Multiple Livin g Live Births 3 3 Date Outcome GA Total Labor Labor/2nd/3rd Weight Sex Type Anes PTL Samara A1 A5 Name Clin Para Para Para Last Filed Vital Signs Vital Sign Reading Time Taken Comments Blood Pressure 99/57 12/16/2024 9:42 AM CDT Pulse 86 12/16/2024 9:42 AM CDT Temperature 36.6 C (97.9 F) 12/16/2024 9:42 AM CDT Respiratory Rate 16 12/16/2024 9:42 AM CDT Oxygen Saturation 95% 12/16/2024 9:42 AM CDT Inhaled Oxygen Concentration - - Weight 73.2 kg (161 lb 6.4 oz) 12/16/2024 9:42 A M CDT Height 154.5 cm (5' 0.83) 10/06/2024 11:02 AM C DT Body Mass Index 30.67 10/06/2024 11:02 AM CDT Plan of Treatment Health Maintenance Due Date Last Done Comments RSV vaccine for adults or (1 - 1-dose 75+ series) 2020 COVID-19 vaccine series ( season) 2024 02/14/2024, 03/01/2023, 01/26/2022, Additional history exists Influenza Vaccine (#1) 2024 , 01/26/2022, 01/24/2019, Additional history exists BMI (ht and wt on same day) for age 18+ 10/06/2025 10/06/2024, 09/02/2023, 05/10/2023, Additional history exists Medicare Wellness for age 65+ 10/07/2025 10/06/2024, 05/10/2023, 12/20/2021, Additional history exists Depression screening for age 12+ 10/13/2025 10/13/2024, 10/06/2024, 09/02/2023, Additional history exists Tetanus booster 11/01/2028 11/01/2018, 08/12/2008 Zoster (shingles) series for age 50+ Completed 08/31/2021, 12/10/2020 Hepatitis C screening for age 18-79 Completed 01/26/2022 DEXA/DXA scan for age 65+ Completed 2023, 07/28/2018 (Verified in Care Everywhere or Patient Record) Pneumococcal series for age 50+ Completed 12/20/2023, 06/15/2015, 08/14/2011 Hepatitis B series for 19+ Aged Out N o longer eligible based on patient's age to complete this topic Medical Devices Implanted Type Area Strip Cutter Device Identifier Shelf Expiration Date Model / Serial / Lot Lens Iol Clear Flex C 19.0 Dioptic Clrflxc-19.0 - [id number] Implanted:Qty: 1 on 07/17/2007 at [facility] Left: Eye [employer] CLRFLXC-1 9.0# / [id number] / Cmnt Bone 40g Simplex P Non Atb Mv - [id number] Implanted:Qty: 2 on 09/08/2014 by Josue Landin MD at [facility] Right: Knee [employer] 01/19/2017 6191-1-01 0# / / [id number] Fem Rt Sz3 Triathlon Cruc Ret Co Cr - [id number] Implanted:Qty: 1 on 09/08/2014 by Josue Landin MD at [facility] Right: Knee [employer] 04/21/2019 5510-F-30 2# / / [id number] Baseplate Tib Sz3 Triathlon Cruc Ret Pe - [id number] Implanted:Qty: 1 on 09/08/2014 by Josue Landin MD at [facility] Right: Knee [employer] 04/21/2019 5520-B-30 0# / / [id number] Patella 31x9mm Triathlon Symmetric X3 - [id number] Implanted:Qty: 1 on 09/08/2014 by Josue Landin MD at [facility] Right: Knee [employer] 05/21/2019 5550-G-31 9# / / [id number] Insert Knee Sz3 11mm Triathloncruc Ret X3 - [id number] Implanted:Qty: 1 on 09/08/2014 by Josue Landin MD at [facility] Right: Knee [employer] 03/21/2019 5530-G-31 1# / / [id number] Mesh 99a65gd Strattice Perforated Porcine - [id number] Implanted:Qty: 1 on 09/19/2016 by Aly Vasquez MD at [facility] N/A: Abdomen [employer] 04/21/2018 [id number]# / / [id number] Mesh Ventral 10b43jm Phasix - [id number] Implanted:Qty: 1 on 09/19/2016 by Aly Vasquez MD at [facility] N/A: Abdomen [employer] 04/18/2018 [id number]# / / [id number] Explanted Type Area Strip Cutter Device Identifier Shelf Expiration Date Model / Serial / Lot Mesh Ventral 13l89by Ventralight St - [id number] Implanted:Qty: 1 on 07/26/2016 by Aly Vasquez MD at [facility] Explanted:Qty: 1 on 09/19/2016 by Aly Vasquez MD at [facility] N/A: Abdomen [employer] 08/17/2017 [id number] # / [id number] / [id number] Procedures Procedure Name Priority Date/Time Associated Diagnosis Comments XR MAMMO FIONA BILAT SCREEN Routine 10/12/2024 12:19 PM CDT Visit for screening mammogram XR DXA BONE DENSITY 2 SITES AXIAL Routine 05/10/2023 3:27 PM [employer] Menopause ANTI HCV Routine 01/26/2022 12:25 PM CDT Encounter for hepatitis C screening test for low risk patient from Last 3 Months or Most Recently Relevant to Health Maintenance Results * XR MAMMO FIONA BILAT SCREEN (10/12/2024 12:19 PM CDT) Anatomical Region Laterality Modality BREASTS, Breast Left, Breast Right Bilateral Mammography Impressions 10/12/2024 4:50 PM CDT There is no radiographic evidence for malignancy. Recommend annual mammograms. MAMMOGRAM ASSESSMENT: ACR 2 Benign PATIENTS: You will also receive a letter with your examination results in an easy to read format. If you have questions about your results, please contact your referring provider. Narrative 10/12/2024 4:50 PM CDT For Patients: As a result of the Century Cures Act, medical imaging exams and procedure reports are released immediately into your electronic medical record. You may view this report before your referring provider. If you have questions, please contact your health care provider. XR MAMMO FIONA BILAT SCREEN [[id number]] CLINICAL HISTORY: This is an asymptomatic 78 y.o. patient. INDICATION FOR EXAM: Mammogram Screening. TECHNIQUE: CC and MLO views were obtained. This study was evaluated with the assistance of Computer-Aided Detection. Breast Tomosynthesis was used in interpretation. COMPARISON FILMS: Yes 11/30/22 [facility] FINDINGS: There are scattered areas of fibroglandular density. No suspicious masses or microcalcifications. There are post surgical changes of left breast. us Eloise Malave MD MAMMO Final Result * XR DXA BONE DENSITY 2 SITES AXIAL (05/10/2023 3:27 PM [employer]) Anatomical Region Laterality Modality Spine, HIPS, HIPL, HIPR Computed Radiography 05/10/2023 3:27 PM [employer] Impressions 05/10/2023 3:36 PM [employer] OSTEOPOROSIS. T score meets the WHO criteria for osteoporosis at one or more measured sites. The risk of osteoporotic fracture increases approximately two-fold for each standard deviation decrease in T-score. Narrative 05/10/2023 3:36 PM [employer] For Patients: As a result of the Century Cures Act, medical imaging exams and procedure reports are released immediately into your electronic medical record. You may view this report before your referring provider. If you have questions, please contact your health care provider. EXAM: XR DXA BONE DENSITY 2 SITES AXIAL LOCATION: [facility] DATE: 05/10/2023 INDICATION: I. other (screening-at minimum one option in 2-5 must be selected) - z13.820 Menopause DEMOGRAPHICS: Age- 77 years. Gender- Female. Menopausal status- Postmenopausal. COMPARISON: 07/28/2018 TECHNIQUE: Dual-energy x-ray absorptiometry (DXA) performed with routine technique. FINDINGS: DXA RESULTS -Lumbar Spine: L1-L4: BMD: 1.109 g/cm2. T-score: -0.6. Z-score: 0.7. Degenerative change may artifactually increase BMD. -RIGHT Hip Total: BMD: 0.707 g/cm2. T-score: -2.4. Z-score: -0.9. -RIGHT Hip Femoral neck: BMD: 0.725 g/cm2. T-score: -2.3. Z-score: -0.6. -LEFT Hip Total: BMD: 0.692 g/cm2. T-score: -2.5. Z-score: -1.0. -LEFT Hip Femoral neck: BMD: 0.783 g/cm2. T-score: -1.8. Z-score: -0.1. WHO T-SCORE CRITERIA -Normal: T score at or above -1 SD -Osteopenia: T score between -1 and -2.5 SD -Osteoporosis: T score at or below -2.5 SD The World Health Organization (WHO) criteria is applicable to perimenopausal females, postmenopausal females, and men aged 50 years or older. INTERVAL CHANGE -There has been a 6.2% increase in lumbar spine BMD. -There has been a 6.5% decrease in bilateral hip BMD. FRACTURE RISK -FRAX Results: The 10 year probability of major osteoporotic fracture is 28.1%, and of hip fracture is 18.0%, based on right femoral neck BMD. RECOMMENDATIONS Consider treatment if major osteoporotic fracture score is greater than or equal to 20%, or if the hip fracture score is greater than or equal to 3%. Procedure Note Sammy Campo MD - 05/10/2023 For Patients: As a result of the Cures Act, medical imagingexams and procedure reports are released immediately into your electronicmedical record. You may view this report before your referring provider.If you have questions, please contact your health care provider. EXAM: XR DXA BONE DENSITY 2 SITES AXIAL LOCATION: [facility] DATE: 05/10/2023 INDICATION: I. other (screening-at minimum one option in 2-5 must beselected) - z13.820 Menopause DEMOGRAPHICS: Age- 77 years. Gender- Female. Menopausal status-Postmenopausal. COMPARISON: 07/28/2018 TECHNIQUE: Dual-energy x-ray absorptiometry (DXA) performed with routinetechnique. FINDINGS: DXA RESULTS -Lumbar Spine: L1-L4: BMD: 1.109 g/cm2. T-score: -0.6. Z-score: 0.7.Degenerative change may artifactually increase BMD. -RIGHT Hip Total: BMD: 0.707 g/cm2. T-score: -2.4. Z-score: -0.9. -RIGHT Hip Femoral neck: BMD: 0.725 g/cm2. T-score: -2.3. Z-score: -0.6. -LEFT Hip Total: BMD: 0.692 g/cm2. T-score: -2.5. Z-score: -1.0. -LEFT Hip Femoral neck: BMD: 0.783 g/cm2. T-score: -1.8. Z-score: -0.1. WHO T-SCORE CRITERIA -Normal: T score at or above -1 SD -Osteopenia: T score between -1 and -2.5 SD -Osteoporosis: T score at or below -2.5 SD The World Health Organization (WHO) criteria is applicable toperimenopausal females, postmenopausal females, and men aged 50 years orolder. INTERVAL CHANGE -There has been a 6.2% increase in lumbar spine BMD. -There has been a 6.5% decrease in bilateral hip BMD. FRACTURE RISK -FRAX Results: The 10 year probability of major osteoporotic fracture is28.1%, and of hip fracture is 18.0%, based on right femoral neck BMD. RECOMMENDATIONS Consider treatment if major osteoporotic fracture score is greater than orequal to 20%, or if the hip fracture score is greater than or equal to3%. IMPRESSION: OSTEOPOROSIS. T score meets the WHO criteria for osteoporosis at one ormore measured sites. The risk of osteoporotic fracture increasesapproximately two-fold for each standard deviation decrease in T-score. Eloise Malave MD DEXA Final Result * ANTI HCV (01/26/2022 12:25 PM CDT) HEPATITIS C ANTIBODY Non-React belkis Non-React belkis 01/27/2022 6:46 PM CDT [facility] Comment:Antibodies to HCV no t detected; does not exclude the possibility of exposure to HCV. Blood BLOOD SPECIMEN / Unknown Venipuncture / Unknown 01/26/2022 12:25 PM CDT 01/26/2022 12:30 PM CDT Eloise Malave MD SEND OUTS Final Result [facility] [address] [place] [address], from Last 3 Months or Most Recently Relevant to Health Maintenance Insurance MEDICARE PART B HB ONLY [facility] MEDICARE PB ONLY MEDICARE PART A HB ONLY HC MEDICARE PPS [facility] Advance Directives * Full Code (Latest Code Status on File) Date Activated Date Inactivated Comments 04/07/2024 2:17 PM 04/10/2024 4:21 PM Question Answer Comments Code Status Discussion: Reviewed Preferences * Full Code Date Activated Date Inactivated Comments 05/21/2023 4:30 PM 05/22/2023 6:20 PM Question Answer Comments Code Status Discussion: Reviewed Preferences * Full Code Date Activated Date Inactivated Comments 12/02/2022 3:05 PM 12/05/2022 8:48 PM Question Answer Comments Code Status Discussion: Reviewed Preferences * Full Code Date Activated Date Inactivated Comments 10/21/2022 3:57 PM 10/23/2022 4:22 PM Question Answer Comments Code Status Discussion: Reviewed Preferences * Full Code Date Activated Date Inactivated Comments 09/18/2018 8:28 AM 09/18/2018 3:53 PM Care Teams Mobile Development Manager Relationship Specialty [place] [address] [place] [address] PCP - General Family Practice 08/01/16 Ginny Walker NP [facility] [place] [address] Nurse Practitioner Nurse Practitioner 09/14/14 Clarisse Barrios, JOHNATHAN [address] [facility] [address] [place] [address] Cancer Nurse Coordinator Oncology 08/22/18
--- OUTSIDE RECORDS SUMMARY | 2025-01-11 13:21 | XMS_ITS | Encounter Summary ---
Author Organization [facility] Address [address] [place] [address] Care Team Providers Care Acoustical Tile Carpenters Supervisor Name Role Phone Clinic, [facility] Primary Care Provide r Ivis Akers DO Unavailable +[phone] Yesenia Granger MD Unavailable [phone] Eloise Malave MD Primary Care Provider [phone] Ayala Lemos APRN BACCARAT MANAGER Unavailable [phone] Malina Parra MD Unavailable [phone] Tiffanie Lomeli PA-C Unavailable [phone] Ivis Akers DO Unavailable [phone] Ivis Akers DO Unavailable [phone] Ayala Lemos APRN BACCARAT MANAGER Unavailable +[phone] Griselda Johnson MD Unavailable Ayala Lemos APRN BACCARAT MANAGER Unavailable [phone] Encounter Details Date Type Department Care Team (Late st Contact Info) Description 11/21/2016 Records - [facility] OUTPATIENT SERVICES [address] [place] [address] Provider, Historical Social History Tobacco Use Types Packs/Day Years Used Date Smoking Tobacco: Never Alcohol Use Standard Drinks/Week Comments No 0 (1 standard drink = 0.6 oz pur e alcohol) Comments Unknown Sex and Gender Information Value Date Recorded Sex Assigned at Not on file Legal Sex Female 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 Please disregard. documented in this encounter Plan of Treatment Upcoming Encounters Date Type Department Care Team (Late st Contact Info) Description 02/11/2025 4:45 PM CDT Office Visit [facility] [address] [facility] [address] [place] [address] Ivis Akers DO [address] [place] [id number] documented as of this encounter Visit Diagnoses Not on filedocumented in this encounter Care Teams Acoustical Tile Carpenters Supervisor Relationship Specialty Start Date End Date [facility], [facility] [address] [place] [address] PCP - General 01/27/16 10/06/20 [place] [address] [place] [address] PCP - General Family Medicine 10/07/20 Ivis Akers DO [address] [place] [address] Assigned Heart and Vascular Provider 02/12/20 10/01/20 Yesenia Granger MD [address] [place] [address] [address] [place], [place] [address] Assigned Surgical Provider 03/13/20 12/15/21 Ayala Lemos APRN BACCARAT MANAGER [address] [address] Assigned Heart and Vascular Provider 10/02/20 04/13/22 [place] [address] [place] [address] Assigned Sleep Provider 11/27/20 12/31/20 Tiffanie Lomeli PA-C [address] [place] [address] Assigned Sleep Provider 01/01/21 11/30/22 Ivis Akers DO [address] [place] [address] Cardiovascular Disease 01/05/22 Ivis Akers DO [address] [place] [address] Assigned Heart and Vascular Provider 04/14/22 10/12/23 Ayala Lemos APRN BACCARAT MANAGER [address] [place] [address] Nurse Practitioner Cardiovascular Disease 01/10/23 Griselda Johnson MD [address] [place] [address] Assigned Pulmonology Provider 06/14/23 12/11/24 Ayala Lemos APRN BACCARAT MANAGER [address] [place] [address] Assigned Heart and Vascular Provider 10/13/23 documented as of this encounter
--- OUTSIDE RECORDS SUMMARY | 2025-01-11 13:21 | XMS_ITS | Encounter Summary ---
Author Organization [facility] Address [address] [place] [address] Care Team Providers Care Laborer Filter Plant Name Role Phone Clinic, [facility] Primary Care Provide r Ivis Akers DO Unavailable [phone] Yesenia Granger MD Unavailable [phone] Eloise Malave MD Primary Care Provider [phone] Ayala Lemos APRN NUT AND BOLT ASSEMBLER Unavailable [phone] Malina Parra MD Unavailable [phone] Tiffanie Lomeli PA-C Unavailable [phone] Ivis Akers DO Unavailable [phone] Ivis Akers DO Unavailable [phone] Ayala Lemos APRN NUT AND BOLT ASSEMBLER Unavailable [phone] Griselda Johnson MD Unavailable Ayala Lemos APRN NUT AND BOLT ASSEMBLER Unavailable [phone] Encounter Details Date Type Department Care Team (Late st Contact Info) Description 11/26/2016 Records - [facility] CONVERSION Scan, Non-Provider Social History Tobacco Use Types Packs/Day Years Used Date Smoking Tobacco: Never Alcohol Use Standard Drinks/Week Comments No 0 (1 standard drink = 0.6 oz pur e alcohol) Comments Unknown Sex and Gender Information Value Date Recorded Sex Assigned at Not on file Legal 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 Gender Identity Not on file Sexual Orientation Not on file documented as of this encounter Plan of Treatment Upcoming Encounters Date Type Department Care Team (Late st Contact Info) Description 02/11/2025 4:45 PM CDT Office Visit [facility] [address] [facility] [address] [place] [address] Ivis Akers DO [address] [place] [address] documented as of this encounter Visit Diagnoses Not on filedocumented in this encounter Care Teams Laborer Filter Plant Relationship Specialty Start Date End Date Clinic, [facility] [address] [place], [place] [id number] PCP - General 01/27/16 10/06/20 [place] [address] [facility] [place] [address] PCP - General Family Medicine 10/07/20 Ivis Akers DO [address] [place] 364825 Assigned Heart and Vascular Provider 02/12/20 10/01/20 Yesenia Granger MD [address] [place] [address] [address] [place], [place] 5275[address] Assigned Surgical Provider 03/13/20 12/15/21 Ayala Lemos APRN NUT AND BOLT ASSEMBLER [address] [place] [address]8095 Assigned Heart and Vascular Provider 10/02/20 04/13/22 [place] [address] [place] [address] Assigned Sleep Provider 11/27/20 12/31/20 Tiffanie Lomeli PA-C [address] [place] [address] Assigned Sleep Provider 01/01/21 11/30/22 Ivis Akers DO [address] [place] [address] Cardiovascular Disease 01/05/22 Ivis Akers DO [address] [place] [address] Assigned Heart and Vascular Provider 04/14/22 10/12/23 Ayala Lemos APRN NUT AND BOLT ASSEMBLER [address] [address] Nurse Practitioner Cardiovascular Disease 01/10/23 Griselda Johnson MD [address] [place] [address] Assigned Pulmonology Provider 06/14/23 12/11/24 Ayala Lemos APRN NUT AND BOLT ASSEMBLER [address] [address] Assigned Heart and Vascular Provider 10/13/23 documented as of this encounter
--- OUTSIDE RECORDS SUMMARY | 2025-01-11 13:22 | XMS_ITS ---
Author Name Interface, [id number] Address [address] [place] [address] [facility] On[facility] Address [address] [place] [address] Allergies and Adverse Reactions Plan Reason for Visit Encounters Medications Problems Vital Signs Notes Section
--- OUTSIDE RECORDS SUMMARY | 2025-01-11 13:22 | XMS_ITS | Encounter Summary ---
Author Organization [facility] Address [address] [place] [address] Care Team Providers Care Junior Accountant Bookkeeper Name Role Phone Clinic, [facility] Primary Care Provide r Ivis Akers DO Unavailable [phone] Yesenia Granger MD Unavailable [phone] Eloise Malave MD Primary Care Provider [phone] Ayala Lemos APRN FOAM MACHINE OPERATOR Unavailable [phone] Malina Parra MD Unavailable [phone] Tiffanie Lomeli PA-C Unavailable [phone] Ivis Akers DO Unavailable [phone] Ivis Akers DO Unavailable [phone] Ayala Lemos APRN FOAM MACHINE OPERATOR Unavailable [phone] Griselda Johnson MD Unavailable Ayala Lemos APRN FOAM MACHINE OPERATOR Unavailable [phone] Encounter Details Date Type Department Care Team (Late st Contact Info) Description 11/19/2016 Records - [facility] CONVERSION Scan, Non-Provider Social History Tobacco Use Types Packs/Day Years Used Date Smoking Tobacco: Never Alcohol Use Standard Drinks/Week Comments No 0 (1 standard drink = 0.6 oz pur e alcohol) Comments Unknown Sex and Gender Information Value Date Recorded Sex Assigned at Not on file Legal Sex Female 3:20 AM ZONING ADMINISTRATOR Gender Identity Not on file Sexual Orientation Not on file documented as of this encounter Plan of Treatment Upcoming Encounters Date Type Department Care Team (Late st Contact Info) Description 02/11/2025 4:45 PM CDT Office Visit [facility] [address] [facility] [address] [place] [phone] Ivis Akers DO [address] [place] [address] documented as of this encounter Visit Diagnoses Not on filedocumented in this encounter Care Teams Junior Accountant Bookkeeper Relationship Specialty Start Date End Date Clinic, [facility] [address] [place], [place] [phone] PCP - General 01/27/16 10/06/20 [place] [address] [facility] [place] [address] PCP - General Family Medicine 10/07/20 Ivis Akers DO [address] [place] [id number] Assigned Heart and Vascular Provider 02/12/20 10/01/20 Yesenia Granger MD [address] [place] [address] [address] [place], [place] [address]005[address] Assigned Surgical Provider 03/13/20 12/15/21 Ayala Lemos APRN FOAM MACHINE OPERATOR [address] [place] [address] Assigned Heart and Vascular Provider 10/02/20 04/13/22 [place] [address] [place] [address] Assigned Sleep Provider 11/27/20 12/31/20 Tiffanie Lomeli PA-C [address] [place] [address] Assigned Sleep Provider 01/01/21 11/30/22 Ivis Akers DO [address] [place] [address] Cardiovascular Disease 01/05/22 Ivis Akers DO [address] [place] [address] Assigned Heart and Vascular Provider 04/14/22 10/12/23 Ayala Lemos APRN FOAM MACHINE OPERATOR [address] [address] Nurse Practitioner Cardiovascular Disease 01/10/23 Griselda Johnson MD [address] [place] [address] Assigned Pulmonology Provider 06/14/23 12/11/24 Ayala Lemos APRN FOAM MACHINE OPERATOR [address] [address] Assigned Heart and Vascular Provider 10/13/23 documented as of this encounter
--- OUTSIDE RECORDS SUMMARY | 2025-01-11 13:22 | XMS_ITS | Patient Health Record ---
Author Organization [facility] Address [address] [place] [address] Care Team Providers Care Stranding Machine Operator Name Role Phone SHAHID Kumar Robbin Primary Care Provider Evelin Hayes Unavailable [phone] Evelin Gaona Unavailable [phone] Allergies Allergen (clinical drug ingredient) Drug/Non Drug Allergy documented on EMR Reaction Allergy Type Onset Date Status Substance with sulfonamide structure and antibacterial mechanism of action (substance) Sulfa Antibiotics Unknown Drug Allergy Active Results Component Value Reference Range Notes URINALYSIS MICROSCOPIC Reviewed date:12/25/2024 02:56:34 PM Interpretation: Performing Lab:[facility] [address], [facility] HospitalYtkrOB[address] Chuck Pascal Notes/Report: 0; 0 WBC NONE [...] ROUTINE Reviewed date:12/26/2024 04:36:51 PM Interpretation: Performing Lab:[facility] [address] [facility], [facility] HospitalXaqiSK[address] Chuck Pascal Notes/Report: 0; 0 CULTURE, URINE, ROUTINE SEE NOTE Specimen Quality: Adequate CULTURE, URINE, ROUTINE Micro Number: [id number] Test Status: Final Specimen Source: Urine, clean catch Result: No Growth Urinalysis, Routine () Reviewed date:12/25/2024 02:56:34 PM Interpretation: Performing Lab: Notes/Report: Urine Color Yellow Yellow - Tiffanie Appearance Clear Clear - Glucose neg Bilirubin neg Ketone neg Specific Desha 1.020 Blood neg pH 6.0 Protein neg Urobilinogen 1 Nitrite neg Leukocytes neg Reason For Referral No Information Medications Medication SIG (Take, Route, Frequency, Duration) Notes Start Date End Date Status Xarelto 20 MG 1 tablet with food Orally Once a day Active Vitamin D Unknown Sodium Chloride 5% ointment Un known Simvastatin 20 MG 1 tablet in the evening Orally Once a day Active Potassium Chloride ER 10 MEQ 1 tablet with food Orally Twice a day Unknown [place] 3 Unknown Metoprolol Succinate ER 100 MG 1 tablet Orally twice a day Active Furosemide 20 MG 1 tablet Orally Once every other day Active Famotidine 20 MG 1 tablet at bedtime as needed Orally Once a day Active Escitalopram Oxalate 10 MG 1 tablet Orally Once a day Active Spironolactone 25 MG 1 tablet Orally Onc e a day Active Acetaminophen Unknow n Social History Tobacco Use: Social History Observation Description Date Details (start date - stop date) Never Smoker NA - NA Tobacco Control (Standard) Question Answer Notes Tobacco use: Nonsmoker Problems Problem Type SNOMED Code ICD Code Onset Dates Problem Status W/U Status Risk Notes Problem Constipation (79071392) Other constipation (K59.09) Active confirmed Problem Overactive bladder (182442698) Overactive bladder (N32.81) Active confirmed Problem Urge incontinence of urine (89067844) Urge incontinence (N39.41) Active confirmed Problem Mixed incontinence (415114486) Mixed incontinence (N39.46) Active confirmed Problem Urge incontinence of urine (94878078) Urge incontinence of urine (N39.41) Active confirmed Vital Signs Blood pressure diastolic 78 mm Hg 12/22/2024 Height 60 in 12/22/2024 Blood pressure systolic 96 mm Hg 12/22/2024 Weight 160.8 lbs 12/22/2024 BMI 31.4 kg/m2 12/22/2024 Encounters Encounter Location Date Provider Diagnosis [facility] [address] [place] [address] 12/22/2024 [facility] Urge incontinence of urine N39.41 and Overactive bladder N32.81 [facility] [address] [place] [address] 01/17/2024 [facility] Urge incontinence of urine N39.41 [facility] [address] [place] [id number] 12/24/2024 [facility] Urge incontinence N39.41 and Overactive bladder N32.81 [facility] [address] [place] [address] 01/22/2024 [facility] [address] [place] [address] 01/22/2024 [facility] [address] [place] [address] 01/22/2024 [facility] [address] [place] [address] 12/26/2024 [facility] [address] [place] [address] 06/22/2024 [facility] [address] [place] [id number] 05/28/[address] [id number] 02/03/2024 [facility] Assessments Encounter Date Diagnosis (ICD Code) Assessment Notes Treatment Notes Treatment Clinical Notes Section Notes 12/22/2024 Overactive bladder (ICD-10 - N32.81) 12/22/2024 Urge incontinence of urine (ICD-10 - [...] patient with educational handout on PTNS therapy 12/24/2024 Overactive bladder (ICD-10 - N32.81) 12/24/2024 Urge incontinence (ICD-10 - N39.41) 01/17/2024 Urge incontinence of urine (ICD-10 - N39.41) Gemtesa is not covered by her insurance plan. She was not able to start the medication. She is still interested in using a medication for management of urge urinary incontinence. Recommend Myrbetriq. We discussed risks, side effects, drug interactions, benefits, when to expect to see benefits, and alternatives today. Patient will notify [facility] if prescription is too expensive. She will continue to work with pelvic floor physical therapy. Her plan is to do PT after breakfast in the morning or in the evening after dinner daily. Patient will also work on eliminating bladder irritants. She will follow-up in 6 weeks or sooner for concerns 01/17/2024 Other Time spent on patient care including - review of previous records - preparation for visit - ordering medications, labs or imaging - documenting visit - discussion of care with another health healthcare science specialist if indicated - direct face to face time with patient including obtaining relevant history, physical exam and discussion of plan of care Total time was 35 minutes spent including some or all of above listed required for care of patient talking about diagnosis, treatment and plan of care with the patient as listed in the treatment portion of the note , Mirabegron Extended Release Oral Tablet (MIRABEGRON EXTENDED-RELEASE - ORAL) material was published 12/22/2024 Other Time spent on patient care including - review of previous records - preparation for visit - ordering medications, labs or imaging - documenting visit - discussion of care with another health healthcare science specialist if indicated - direct face to face time with patient including obtaining relevant history, physical exam and discussion of plan of care Total time was 47 minutes spent including some or all of above listed required for care of patient talking about diagnosis, treatment and plan of care with the patient as listed in the treatment portion of the note 05/28/2024 Other CancelRx Response got Denied on 2024-12-22 17:02:08 for 'Gemtesa 75 MG Tablet'Pharmacy Notes: Unable to cancel prescription; prescription was transferred to another pharmacy. Prescription filled 0 times; transferred to [facility] Plan Of Treatment Next Appt Details Provider Name:Evelin Gaona, 1 01:30:00 PM, [address], [place], [address], Provider Name:Evelin Gaona, 1 02:30:00 PM, [address] [place], [address], Provider Name:Evelin Gaona, 1 01:30:00 PM, [address] [place], [address], Provider Name:Evelin Gaona, 1 04/25/2024 01:30:00 PM, [address] [place], [address], Provider Name:Evelin Gaona, 1 05/02/2024 01:30:00 PM, [address] [place], [address], Provider Name:Evelin Gaona, 1 05/09/2024 01:30:00 PM, [address] [place], [address], Provider Name:Evelin Gaona, 1 05/16/2024 01:30:00 PM, [address] [place], [address], Provider Name:Evelin Gaona, 1 05/24/2024 01:30:00 PM, [address], [place], [address], Provider Name:Evelin Gaona, 1 05/31/2024 01:30:00 PM, [address], [place], [address], Provider Name:Evelin Gaona, 1 06/07/2024 01:30:00 PM, [address], [place], [address], Provider Name:Evelin Gaona, 1 01:30:00 PM, [address], [place], [address], Provider Name:Evelin Gaona, 0 04/27/2025 01:30:00 PM, [address], [place], [address], Provider Name:Evelin Gaona, 0 05/04/2025 01:30:00 PM, [address], [place], [address], Provider Name:Evelin Gaona, 0 05/11/2025 01:30:00 PM, [address], [place], [address], Insurance Providers Payer Name Payer Address Payer Phone Subscriber Number Group Number Insured Name Patient Relationship to Insured Coverage Start Date Coverage End Date Medicare (Ins. Bill) [address] [place], [place] [id number] Racquel Jones Self - patient is the insured [facility] Medicare SUPPLEMENT [address] [address] [place], [place] [id number] Racquel Jones Self - patient is the insured Medical (General) History Medical History History ICD Code Hypertension Arthritis Cancer Pelvic organ prolapse (surgically correc elizabeth) Surgical History Surgery Date(Month/Year) Tubal Ligation 1975 Hernia Surgery x7
--- OUTSIDE RECORDS SUMMARY | 2025-01-11 13:22 | XMS_ITS | Clinical Summary ---
Author Organization [facility] Address [address] [place] [id number] Care Team Providers Care Roller Coaster Operator Name Role Phone Eloise Malave MD Primary Care Provider [phone] Ivis Akers DO Unavailable [phone] Ayala Lemos APRN GAS WELL DRILLING MANAGER Unavailable [phone] Ayala Lemos APRN GAS WELL DRILLING MANAGER Unavailable [phone] Allergies Active Allergy Reactions Criticality Noted Date Comments Amoxicillin Nausea 07/16/2007 Sulfa Antibiotics 07/25/2016 Medications escitalopram (LEXAPRO) 10 MG tablet Take 10 mg by mouth daily 7 Active simvastatin (ZOCOR) 20 MG tablet Take 20 mg by mouth daily 0 Active cholecalciferol (VITAMIN D-[address]) 25 MCG (1000 UT) TABS Take 1,000 Units by mouth daily Active famotidine (PEPCID) 20 MG tablet Take 20 mg by mouth 2 times daily Active XARELTO ANTICOAGULANT 20 MG TABS tabletIndications :History of deep venous thrombosis,Other acute pulmonary embolism with acute cor pulmonale (H),Abnormal coagulation profile,Essential hypertension,SOB (shortness of breath),Chronic diastolic congestive heart failure (H) Take 1 tablet (20 mg) by mouth daily (with dinner) 90 tablet 4 3 Active acetaminophen (TYLENOL) 500 MG tablet Take 500-1,000 mg by mouth every 6 hours as needed for mild pain Active sodium chloride (ANTONELLA 128) 5 % ophthalmic ointment 1 Application daily Active Jenners-3 Fatty Acids (OMEGA 3 PO) Take 1 capsule by mouth daily Active oxyBUTYnin (DITROPAN) 5 MG tablet 1 tablet Orally Twice a daily for 90 days 4 Active metoprolol succinate ER (TOPROL XL) 100 MG 24 hr tabletIndications :Longstanding persistent atrial fibrillation (H) Take 1 tablet (100 mg) by mouth 2 times daily. 5 Active furosemide (LASIX) 20 MG tabletIndications :Chronic diastolic congestive heart failure (H) Take 1 tablet (20 mg) by mouth daily. 90 tablet 3 5 Active GEMTESA 75 MG TABS tablet Take 75 mg by mouth daily. Active spironolactone (ALDACTONE) 25 MG tabletIndications :Left Diastolic Heart Failure Take 1 tablet (25 mg) by mouth daily. 90 tablet 3 5 Active Active Problems Problem Noted Date Diagnosed Date RAFAEL (obstructive sleep apnea) 12/28/2020 Overview (12/28/2020): 12/14/2020 [facility] Sleep Study (183.0 lbs) - AHI 41.4, RDI 43.3, Supine AHI 40.3, REM AHI 67.4, Low O2 65.0%, Time Spent </=88% 19.6 minutes Hyperlipidemia LDL goal <100 09/02/2020 Major depressive disorder, s brittany episode, in full remission 07/22/2020 Mixed incontinence 03/17/2020 Microscopic hematuria 03/17/2020 Paroxysmal atrial fibrillation 01/23/2019 Obesity with body mass index 30 or greater 01/14 Malignant neoplasm of left b reast in female, estrogen receptor positive 08/26/2018 Gastroesophageal reflux disease 07/08/2018 Overview (07/02/2019): Overview: Gastroesophageal Reflux Gastroesophageal Reflux Essential hypertension 11/16/2016 Personal history of other venous thrombosis and embolism 08/31/2016 Chronic diastolic heart failure 08/10/2016 S/P repair of ventral hernia 08/10/2016 Resolved Problems Problem Noted Date Diagnosed Date Resolved Date Muscle weakness (generalized) 10/05/2020 11/30/2020 Immunizations Immunization Administration Dates Next Due Influenza (High Dose) Trival ent,PF (Fluzone) 01/24/2019,01/16/2018,01/15/2017,2015,02/05/2015,02/08/2014,04/17/2013,1 05/05/2011 Influenza (IIV3) PF 03/02/2011 Influenza (prior to 2023) 01/15/2009 Influenza Vaccine 65+ (Fluzone HD) 02/24/2021, Pneumo Conj 13-V (2010&after) 06/15/2015 Pneumococcal 23 valent 08/14/2011 TD,PF 7+ (Tenivac) 11/01/2018 Zoster recombinant adjuvante d (Shingrix) 12/10/2020 Family History Medical History Relation Comments Diabetes Brother Cancer Father Diabetes Father Cancer Mother Relation Status Comments Brother Father Mother Social History Tobacco Use Types Packs/Day Years Used Date Smoking Tobacco: Never Smokeless Tobacco: Never Tobacco Cessation:Counseling Given: Not Answered Alcohol Use Standard Drinks/Week Comments Yes 0 (1 standard drink = 0.6 oz pur e alcohol) holidays PHQ-2 Answer Date Recorded PHQ-2 Score 1 05/29/2021 Adolescent Education Answer Date Record ed Getting School Help Needed Not on file 01/17 Comments No Sex and Gender Information Value Date Recorded Sex Assigned at Not on file Legal Sex Female 3:20 AM VALVE SEATER OPERATOR Gender Identity Not on file Sexual Orientation Not on file Last Filed Vital Signs Vital Sign Reading Time Taken Comments Blood Pressure 108/68 07/30/2024 1:10 PM CDT Pulse 68 07/30/2024 1:10 PM CDT Temperature 36.4 C (97.6 F) 10/03/2022 7:41 AM CDT Respiratory Rate 20 10/03/2022 7:41 AM CDT Oxygen Saturation 98% 07/30/2024 1:10 PM CDT Inhaled Oxygen Concentration - - Weight 70.4 kg (155 lb 1.6 oz) 07/30/2024 1:10 P M CDT Height 154.9 cm (5' 1) 07/30/2024 1:10 PM CDT Body Mass Index 29.31 07/30/2024 1:10 PM CDT Plan of Treatment Upcoming Encounters Date Type Department Care Team (Late st Contact Info) Description 02/11/2025 4:45 PM CDT Office Visit [facility] [id number] [facility] [address] [place] [phone] Ivis Akers, [address] [address] Health Maintenance Due Date Last Done Comments ADVANCE CARE PLANNING 1945 ALT 1945 ANNUAL REVIEW OF HM ORDERS 1945 DEPRESSION ACTION PLAN 1945 HF ACTION PLAN 1945 LIPID 1945 TSH W/FREE T4 REFLEX 1945 FALL RISK ASSESSMENT 2010 RSV VACCINE (1 - 1-dose 75+ series) 2020 PHQ-9 11/26/2021 05/29/2021 CBC 09/26/2023 09/25/2022, 07/25/2016 MAMMO SCREENING 12/01/2023 11/30/2022, 11/20, 11/08/2021, Additional history exists MEDICARE ANNUAL WELLNESS VISIT 05/10/2024 05/10/2023, 12/20/2021, 07/22/2020 BMP 10/29/2024 05/01/2024, 12/22, 09/25/2022, Additional history exists COVID-19 VACCINE ( season) 2024 02/14/2024, 03/01/2023, 01/26/2022, Additional history exists INFLUENZA VACCINE (#1) 2024 , 02/16/2023, 01/26/2022, Additional history exists DIABETES SCREENING 05/01/2027 05/01/2024, 0 01/17/2023, 09/25/2022, Additional history exists DTAP/TDAP/TD VACCINE (3 - Td or Tdap) 11/01/2028 11/01/2018, 08/12/2008 DEXA 05/10/2038 05/10/2023 ZOSTER VACCINE Completed 08/31/2021, 12/10/2020 HEPATITIS C SCREENING Completed 01/26/2022 COLONOSCOPY Discontinued 05/21/2022, 04/2021, 04/21/2021, Additional history exists COLORECTAL CANCER SCREENING Discontinued PNEUMOCOCCAL VACCINE 50+ YEARS Completed 12/20/2023, 06/15/2015, 08/14/2011 CT COLONOGRAPHY Discontinued FIT Discontinued FLEX SIG Discontinued HPV VACCINE (No Doses Required) Completed MENINGITIS VACCINE Aged Out No longer eligible based on patient's age to complete this topic sDNA (Cologuard) Discontinued Procedures Procedure Name Priority Date/Time Associated Diagnosis Comments BASIC METABOLIC PANEL Routine 05/01/2024 4:31 PM VALVE SEATER OPERATOR Acute on chronic diastolic heart failure (H) CBC WITH PLATELETS & DIFFERENTIAL STAT 09/25/2022 2:07 PM CDT COLONOSCOPY Routine 05/23/2006 6:40 AM VALVE SEATER OPERATOR from Last 3 Months or Most Recently Relevant to Health Maintenance Results * Basic metabolic panel (05/01/2024 4:31 PM VALVE SEATER OPERATOR) Sodium 138 135 - 145 mmol/L 05/01/2024 4:55 PM VALVE SEATER OPERATOR LAB[facility]ATORY Potassium 4.3 3.4 - 5.3 mmol/L 05/01/2024 4:55 PM VALVE SEATER OPERATOR LAB[facility] Chloride 101 98 - 107 mmol/L 05/01/2024 4:55 PM VALVE SEATER OPERATOR [facility] Carbon Dioxide (CO2) 24 22 - 29 mmol/L 05/01/2024 4:55 PM VALVE SEATER OPERATOR [facility] Anion Gap 13 7 - 15 mmol/L 05/01/2024 4:55 PM VALVE SEATER OPERATOR [facility] Urea Nitrogen 13.5 8.0 - 23.0 mg/dL 05/01/2024 4:55 PM VALVE SEATER OPERATOR [facility] Creatinine 0.82 0.51 - 0.95 mg/dL 05/01/2024 4:55 PM VALVE SEATER OPERATOR [facility]ORY GFR Estimate 73 >60 mL/min/1.7 3m2 05/01/2024 4:55 PM VALVE SEATER OPERATOR [facility] Comment:eGFR calculated usin 2020 CKD-EPI equation. Calcium 9.0 8.8 - 10.4 mg/dL 05/01/2024 4:55 PM VALVE SEATER OPERATOR [facility] Comment:Reference intervals for this test were updated on 11/05/2023 to reflect our healthy population more accurately. There may be differences in the flagging of prior results with similar values performed with this method. Those prior results can be interpreted in the context of the updated reference intervals. Glucose 89 70 - 99 mg/dL 05/01/2024 4:55 PM VALVE SEATER OPERATOR [facility] Blood STRUCTURE OF RIGHT HAND / Unknown Venipuncture / Unknown 05/01/2024 4:31 PM VALVE SEATER OPERATOR 05/01/2024 4:31 PM VALVE SEATER OPERATOR Ayala Lemos APRN GAS WELL DRILLING MANAGER LAB - BLOOD ORDERABLES Final Result LABORATORY [facility] [address] [facility] (1st floor, no room number) [place] [address], [facility] * COLONOSCOPY (05/23/2006 6:40 AM VALVE SEATER OPERATOR) COLONOSCOPY Endoscopy Patient Name: Racquel Jones Gender: F Procedure Date: 05/23/2006 6:40 AM Date of : 1945 Age: 60 Admit Type: Outpatient Attending MD: Chidi Velazquez Procedure: Colonoscopy Indications: Avg risk screening for malignant neoplasm in the colon Providers: Chidi Velazquez MD Referring MD: Rupal Frost MD Medicines: Fentanyl 100 mcg IV, Midazolam 3 mg IV Complications: No immediate complications Procedure: - Prior to the procedure, a History and Physical was performed, and patient medication allergies have been reviewed. The patient's tolerance of previous anesthesia has been reviewed. - The risks and benefits of the procedure and the sedation options and risks were discussed with the patient. All questions were answered and informed consent was obtained. - Patient identification and proposed procedure were verified prior to the procedure by the physician and the nurse. The procedure was verified in the procedure room. - Pre-procedure physical examination revealed no contraindications to sedation. - ASA Grade Assessment: P1 A normal healthy patient. - The heart rate, respiratory rate, oxygen saturations, blood pressure, adequacy of pulmonary ventilation, and response to care were monitored throughout the procedure. After obtaining informed consent, the colonoscope was passed under direct vision. Throughout the procedure, the patient's blood pressure, pulse, and oxygen saturations were monitored continuously. The [id number] #[id number] was introduced through the anus and advanced to the cecum, identified by appendiceal orifice & IC valve. The colonoscopy was technically difficult and complex due to diverticular stricture in the sigmoid and some tendency to loop. The quality of the prep was excellent. The total duration of the procedure was 22 minutes. Findings: Multiple diverticula were found in the sigmoid colon, in the descending colon and in the transverse colon. The exam was otherwise without abnormality. Impression: - Diverticulosis. - The examination was otherwise normal. Recommendation: - Discharge patient to home (ambulatory). - Return to GI clinic in 10 years. _ Chidi Velazquez MD Signed Date: 05/23/2006 7:41 AM Number of Addenda: 0 I was physically present for the entire viewing portion of the exam. Note generated on 05/23/2006 6:41 AM RADIOLOGY RESULTS COLONOSCOPY RADIOLOG Y RESULTS 05/23/2006 6:40 AM VALVE SEATER OPERATOR Chidi Velazquez MD PROCEDURES Final R esult RADIOLOGY RESULTS from Last 3 Months or Most Recently Relevant to Health Maintenance Insurance [place]ICARE [place] MED[place] SU[place] MED[place]ARE SUPPLEMENT Care Teams Roller Coaster Operator Relationship Specialty [place] [address] [place] [address] PCP - General Family Medicine 10/07/20 Ivis Akers DO [address] [id number] Cardiovascular Disease 01/05/22 Ayala Lemos APRN GAS WELL DRILLING MANAGER [address] [id number] Nurse Practitioner Cardiovascular Disease 01/10/23 Ayala Lemos APRN GAS WELL DRILLING MANAGER [address] [id number] Assigned Heart and Vascular Provider 10/13/23
--- OUTSIDE RECORDS SUMMARY | 2025-01-11 13:23 | XMS_ITS | Clinical Summary ---
Author Organization [facility] Address [address] [facility] , [address] [place] [address] Phone Care Team Providers Care Senior [employer] Name Role Phone [facility] Unavailable Unava ilable Conditions or Problems Problem Name Problem Code Onset Date Status Entry Date Provider Comment Standard Description Annotate Parkinsonism, unspecified 28725571 (SNOMED CT) 05/06 Active 05/06 Elise Elias PA-C Parkinsonism Weakness 59275801 (SNOMED CT) 09/01 Active 09/01 Miles Capellan MD Asthenia Gait imbalance 232274679 (SNOMED CT) 09/01 Active 09/01 Miles Capellan MD Abnormal gait due to impairment of balance Parkinsonism 30212915 (SNOMED CT) 09/01 Active 09/01 Miles Capellan MD Parkinsonism Tremor 04897503 (SNOMED CT) 06/21 Active 06/21 Tony Davey MD Tremor Medications Medication Instructions Start Date Stop Date Generic Name NDC Provider CARBIDOPA-LEVOD OPA 25-100 MG TABS Take 1 tablet by mouth three times a day -Start Sinemet 25/100 one tablet per day for 3 days, then twice per day for 3 days, then 3 times per day thereafter. Take 1 hour before or 2 hours after a meal 10/22 carbidopa-levodop a [id number] Elise Elias PA-C CARBIDOPA-LEVOD OPA 25-100 MG TABS Take 1 tablet by mouth three times a day at 7 am, 11:30 am and 4:30 pm carbidopa-levodop a 75329415732 [facility] 20 MG TABS Take 1 tablet by mouth twice a day famotidine [id number] [facility] FISH OIL 500 MG CAPS omega 2-gop-zcm-fish oil 12014506410 [facility] RA CALCIUM 600 1500 (600 Ca) MG TABS calcium carbonate 71431795481 [facility] METOPROLOL SUCCINATE ER 50 MG [id number] Take 1 tablet by mouth twice a day metoprolol succinate [id number] [facility] DILTIAZEM HCL ER COATED BEADS 120 MG [id number] 05/06 diltiazem hcl 07830258111 [facility] ESCITALOPRAM OXALATE 5 MG TABS 05/06 escitalopram oxalate 64333553180 [facility] METOPROLOL SUCCINATE ER 100 MG [id number] 05/06 metoprolol succinate [id number] [facility] ESCITALOPRAM OXALATE 10 MG TABS 05/06 escitalopram oxalate 52142750255 [facility] TYLENOL EXTRA STRENGTH 500 MG TABS up to 6 tab per day prn acetaminophen 84805906798 [facility] CARBIDOPA-LEVOD OPA 25-100 MG TABS Take 1 tablet by mouth three times a day -Start Sinemet 25/100 one tablet per day for 3 days, then twice per day for 3 days, then 3 times per day thereafter. Take 1 hour before or 2 hours after a meal 10/30 carbidopa-levodop a 32114778908 Miles Capellan MD ESCITALOPRAM OXALATE 5 MG TABS 05/06 escitalopram oxalate 50267605333 Miles Capellan MD METOPROLOL SUCCINATE ER 100 MG [id number]-HNT 05/06 metoprolol succinate 01652019008 Miles Capellan MD DILTIAZEM HCL ER COATED BEADS 120 MG [id number] 05/06 diltiazem hcl 75477883620 Miles Capellan MD POTASSIUM CHLORIDE YAKELIN ER 20 MEQ CR-TABS Take 1 tablet by mouth twice a day 05/31 potassium chloride 03875300059 Elise Elias PA-C FAMOTIDINE 20 MG TABS Take 1 tablet by mouth once a day 07/11 famotidine 69757240998 Elise Elias PA-C METOPROLOL SUCCINATE ER 50 MG [id number]-MVQ by mouth 05/31 metoprolol succinate 13980496354 Elise KEY-C ELIQUIS 5 MG TABS Take 1 tablet by mouth twice a day 05/31 apixaban 72558666089 Elise Elias PA-C FUROSEMIDE 20 MG TABS Take 1 tablet by mouth every morning furosemide 05345989576 Tony Davey MD ESCITALOPRAM OXALATE 10 MG TABS Take 1 tablet by mouth every morning escitalopram oxalate 69843242420 Miles Capellan MD ASPIRIN EC 81 MG TBEC Take 1 tablet by mouth twice a day 05/31 aspirin 43560952394 Elise KEY-C PEG 3350 17 GM/SCOOP POWD Take 17 gram by mouth twice a day 05/31 polyethylene glycol 3350 30604662800 Elise Elias PA-C SIMVASTATIN 20 MG TABS Take 40 mg by mouth every night 05/31 simvastatin 28282255585 Elise Velascoil PA-C FUROSEMIDE 40 MG TABS Take 20 mg by mouth once a day 05/31 furosemide 42702838203 Elise Elias PA-C METOPROLOL SUCCINATE ER 50 MG [id number] Take 1 tablet by mouth once a day 05/06 metoprolol succinate 40515711189 Tony Davey MD OMEPRAZOLE 20 MG CPDR Take 1 capsule by mouth once a day 05/31 omeprazole 52615981017 [facility] SIMVASTATIN 40 MG TABS Take 1 tablet by mouth every night simvastatin 70310393564 Tony Davey MD VITAMIN D3 25 MCG (1000 UT) TABS Take 1000 unit by mouth twice a day cholecalciferol (vitamin d3) 61271943214 Miles Capellan MD ESCITALOPRAM OXALATE 5 MG TABS Take 5 mg by mouth every morning 05/31 escitalopram oxalate 12814269376 [facility] ACETAMINOPHEN 500 MG TABS Take 1000 mg by mouth every six hours as needed 05/31 acetaminophen 85370030021 [facility] ESCITALOPRAM OXALATE 10 MG TABS Take 1 tablet by mouth once a day 05/31 escitalopram oxalate 31199924132 [facility] POTASSIUM CHLORIDE ER 10 MEQ CR-CAPS 1 cap daily potassium chloride 03978551441 [facility] XARELTO 20 MG TABS 1 tab daily rivaroxaban 49061880135 [facility] SIMVASTATIN 20 MG TABS Take 40 mg by mouth at bedtime. 05/31 simvastatin (ZOCOR) 20 mg tablet 41885626391 Miles Capellan MD POTASSIUM CHLORIDE YAKELIN ER 20 MEQ CR-TABS Take 1 tablet by mouth 2 times daily with meals. 05/31 potassium chloride (KLOR-CON M20) 20 mEq Extended-Release ta 17790410909 Miles Capellan MD PEG 3350 17 GM/SCOOP POWD Take 17 g by mouth 2 times daily. 05/31 polyethylene glycoL (MIRALAX) 17 gram/dose powder 72733150336 Miles Capellan MD METOPROLOL SUCCINATE ER 50 MG [id number] null 05/31 metoprolol succinate (TOPROL XL) 50 mg sustained-release tab 51604584925 Miles Capellan MD FUROSEMIDE 40 MG TABS Take 20 mg by mouth once daily. Indications: Accumulation of Fluid Resulting from Chronic Heart Failure 05/31 furosemide (LASIX) 40 mg tablet 71743871772 Miles Capellan MD FAMOTIDINE MAXIMUM STRENGTH 20 MG TABS null 05/31 famotidine (PEPCID) 20 mg tablet 30732343439 Miles Capellan MD ESCITALOPRAM OXALATE 5 MG TABS Take 5mg every morning with 10mg tablet for a total of 15mg daily. 05/31 escitalopram oxalate (LEXAPRO) 5 mg tablet 20033497647 Miles Capellan MD ESCITALOPRAM OXALATE 10 MG TABS Take 1 Tablet (10 mg) by mouth every morning. 05/31 escitalopram oxalate (LEXAPRO) 10 mg tablet 54664166140 Miles Capellan MD VITAMIN D3 25 MCG (1000 UT) TABS Take 1,000 Units by mouth 2 times daily. 05/31 cholecalciferol (VITAMIN D) 1,000 unit tablet 44708684090 Miles Capellan MD ASPIRIN 81 MG TBEC Take 1 tablet by mouth 2 times daily with meals. 11/03 aspirin (ECOTRIN) 81 mg enteric coated tablet 56859239807 Miles Capellan MD ACETAMINOPHEN 500 MG TABS Take 1,000 mg by mouth every 6 hours if needed. Max acetaminophen dose: 4000mg in 24 hrs. 05/31 acetaminophen (TYLENOL EXTRA STRGTH) 500 mg tablet 90043893647 Miles Capellan MD SIMVASTATIN 40 MG TABS TAKE 1 TABLET BY MOUTH EVERY EVENING WITH A MEAL 08/28 SIMVASTATIN 61708801564 Tony Davey MD FUROSEMIDE 20 MG TABS TAKE 1 TABLET BY MOUTH EVERY MORNING 05/31 FUROSEMIDE 56676158910 Tony Davey MD ESCITALOPRAM OXALATE 10 MG TABS TAKE 1 TABLET BY MOUTH DAILY 05/31 ESCITALOPRAM OXALATE 57853958393 Tony Davey MD OMEPRAZOLE 20 MG CPDR TAKE ONE CAPSULE BY MOUTH DAILY 10/30 OMEPRAZOLE 24674802978 Tony Davey MD ELIQUIS 5 MG TABS TAKE ONE TABLET BY MOUTH TWICE DAILY 05/31 APIXABAN 63346276178 Tony Davey MD METOPROLOL SUCCINATE ER 50 MG [id number]-VVS Take 1 tablet (50 mg total) by mouth daily. Do not crush or chew. 05/31 METOPROLOL SUCCINATE 78331116875 Tony Davey MD Medications Administered No information available. Allergies, Adverse Reactions, Alerts Allergy Name Reaction Description Start Date Severity Statu s Provider SULFA (SULFONAMIDE ANTIBIOTICS) Rash, Throat Swelling/Closing Severe Active Miles Capellan MD AMOXICILLIN Moderate Active Tony Davey MD SULFA Moderate Active Tony Davey MD Results Date Name Value Unit Range Flag Description Office Visit: TREMOR IN HAND S 06/22/19 14:06- 06/22/19 14:06 REFERRING PHY... 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 Internal Other: Verbal Autho rization/Emergency Contact - OBS VERBAL_EMER DONE Verbal au thorization and emergency contact Internal Other: Authorizatio n - OBS [id number] Yes GE use only - for [employer] import when terms are not otherwise specified [email or web address] Yes Authoriza tion: Release of Information - Authorize [facility] - Payment and Healthcare Operations ROIAUTHOTHER Yes Authoriz ation: Release of Information - Authorize Others/Insurance - Payment and Healthcare Operations HIECONSENT Yes Consent To Release information to the Health Information Exchange (HIE) [email or web address] Yes Authorizat ion: Authorization for [facility] to leave messages, voicemail, send text messages, send emails AUTHRELHCARE Yes Authoriz ation: Release/Retrieval of Information to/from Healthcare Facilities, Pharmacy Benefit Payers and Providers AUTHPRIVPRAC Yes Authoriz ation: Notice of privacy practices AUTHBENEFIT Yes Authoriza tion: Assignment of Benefits and Payment Agreement Office Visit: Office Visit [facility] MEDS REVIEW Done Documenta tion of current medications (procedure) Plan of Care Type Date Detail Appointment 11:00 AM Miles Capellan MD , [address] [facility], [address], [place], [address], Pending order Follow up Pending order Follow up Pending order Physical Therapy Pending order Patient Instruct ions Pending order Patient Instruct ions Pending order Physical Therapy Pending order Physical Therapy Pending order Follow up MARJ Pending order Patient Instruct ions Pending order Follow up Pending order Patient Instruct ions Pending order Follow up MARJ Pending order Patient Instruct ions Pending order Patient Instruct ions Pending order Patient Instruct ions Pending order Patient Instruct ions Pending order Patient Instruct ions Pending order Patient Instruct ions Pending order Follow up MARJ Pending order Follow up Pending order Patient Instruct ions Pending order Follow up MARJ Pending order Patient Instruct ions Pending order Patient Instruct ions Pending order Patient Instruct ions Pending order Follow up MARJ Pending order Follow up Pending order Instructions for Staff Pending order Patient Instruct ions Pending order Follow up in cli tran or telemedicine Pending order Follow up MARJ in clinic or telemedicine Pending order Patient Instruct ions Pending order Follow up Pending order Follow up MARJ Pending order Follow up MARJ Pending Order exclud ed from report: Pending order Follow up MARJ Pending order Aldolase Pending order CK (Creatine Kin ase) Total Pending order Patient Instruct ions Pending order Follow up Pending order EMG left lower e xt Pending order EMG left upper e xt Pending order Aldolase Pending order CK (Creatine Kin ase) Total Pending order Physical Therapy Procedures Code Procedure Name Date Entry Date ORDERS Follow up MARJ ORDERS Patient Instructions ORDERS Patient Instructions ORDERS Follow up ORDERS Patient Instructions [facility]-[id number] Documentation of current medicatio ns ORDERS Follow up MARJ ORDERS Patient Instructions ORDERS Patient Instructions ORDERS Patient Instructions ORDERS Follow up MARJ ORDERS Patient Instructions ORDERS Patient Instructions ORDERS Follow up MARJ ORDERS Patient Instructions ORDERS Patient Instructions ORDERS Instructions for Staff 03/06 ORDERS Follow up ORDERS Patient Instructions ORDERS Follow up in clinic or telemedicine 11/22 [facility]-[id number] Documentation of current medicatio ns ORDERS Follow up MARJ in clinic or telemedicine ORDERS Patient Instructions [facility]-[id number] Documentation of current medicatio ns ORDERS Follow up ORDERS Follow up MARJ ORDERS Follow up MARJ ORDERS Patient Instructions ORDERS Aldolase ORDERS CK (Creatine Kinase) Total 2 [facility]-[id number] Documentation of current medicatio ns ORDERS Follow up ORDERS EMG left upper ext 3 ORDERS EMG left lower ext 3 CPT-00689 Nerve Conduction 1-2 studies CPT-66860 EMG with NCS (5+ muscles) - 1 limb 10/13 CPT-5902430 Thoracic PS (T3-11) ORDERS CK (Creatine Kinase) Total 2 ORDERS Aldolase ORDERS Physical Therapy [id number] Fall risk assessment (procedure) [facility]-[id number] Documentation of current medicatio ns CPT-27907 Brief emotional/behavioral assessment 202 [id number] Fall risk assessment (procedure) [facility]-[id number] Documentation of current medicatio ns Vital Signs Date Name Value Unit Description Height 61 [in_us] height E&M BMI (Body Mass Index) 36.22 kg/m2 Bod y Mass Index (Ratio) BP Diastolic 54 mm[Hg] blood pressu re, diastolic BP Systolic 121 mm[Hg] blood pressur e, systolic Weight Measured 191 [lb_av] weight E& M Weight Measured 191 [lb_av] weight E& M Immunizations No information available. Advance Directives No information available.
--- OUTSIDE RECORDS SUMMARY | 2025-01-11 13:24 | XMS_ITS ---
Author Name Interface, [id number] lity Address [address] [place] [address] [facility] Address [address] [place] [address] Allergies and Adverse Reactions Plan Reason for Visit Encounters Immunizations Diagnostic Results Medications Problems Vital Signs
[2025-01-11 13:32] VITALS: BP 95/58; PULSE 64; RESP 16; TEMP 36.8; O2SAT 100
[2025-01-11 15:35] VITALS: BP 103/68
--- NOTE | 2025-01-11 15:37 | ED.GENADULT ---
HPI - General Adult General Date Seen: 01/11/25 <Shira Jaimes MD - Last Filed: 01/15/25 11:22> Chief complaint: Back Injury/Pain <Shira Jaimes MD - Last Filed: 01/15/25 11:22> Stated complaint: might have fluid in stomach/pain in lower back <Shira Jaimes MD - Last Filed: 01/15/25 11:22> Time Seen by Provider: 01/11/25 15:16 <Shira Jaimes MD - Last Filed: 01/15/25 11:22> History of Present Illness HPI narrative: Patient is a 79-year-old woman here with her daughter for evaluation of a few concerns. Couple of weeks ago, she says she had a fall. She did not think she had any injuries related to that and was not seen. At some point after the fall, maybe a day or 2 or perhaps more after, she isn't sure, she started to feel like her abdomen was swelling and she became concerned that she might be collecting fluid. It sounds like she has had at least 1 episode of ascites requiring paracentesis. She and her daughter believes that that was related to congestive heart failure. She is not aware of any liver problems. She has had a little bit of upper abdominal pain, she has antibiotic beads present related to a prior what sounds like infected mesh from hernia surgery and she feels like does have moved up in her abdomen and her now uncomfortable. She also tells me she has not urinated since yesterday, she has incontinence and wears a diaper but it has been dry since yesterday afternoon. She also notes that she has had some pain in her right side kind of diffusely and also some low back pain although low back pain is not unusual for her. She is not sure whether this bothers her more since the fall or not. No fevers, nausea vomiting, appetite has been normal. No black or bloody stools, no diarrhea. She does get constipated and has chronic problems with incontinence, apparently planning to get acupuncture in a couple of weeks to try and treat the incontinence. <Shira Jaimes MD - Last Filed: 01/15/25 11:22> Related Data Home medications: Home Medications ?Medication ?Instructions ?Recorded ?Confirmed carboxymethylcellulose sodium 1 % 1 drp ophthalmic (eye) DAILY 07/06/22 04/01/25 eye liquid gel drops cholecalciferol (vitamin D3) 25 25 mcg PO BID 10/25/21 07/21/24 mcg (1,000 unit) tablet sodium chloride 5 % eye drops 5 drp ophthalmic (eye) DAILY 10/25/21 07/21/24 escitalopram oxalate 10 mg tablet 10 mg PO DAILY 10/26/21 07/21/24 famotidine 20 mg tablet 20 mg PO BID 10/26/21 07/21/24 furosemide 20 mg tablet 20 mg PO DAILY 10/26/21 07/21/24 acetaminophen 500 mg tablet 1,000 mg PO Q6H PRN 12/07/21 07/21/24 polyethylene glycol 3350 17 17 g PO BID 12/07/21 07/21/24 gram/dose oral powder metoprolol succinate 100 mg 100 mg PO BID 07/21/24 07/21/24 tablet,extended release 24 hr rivaroxaban 20 mg tablet (Xarelto) 20 mg PO QPM 07/21/24 07/21/24 simvastatin 20 mg tablet 20 mg PO QPM 07/21/24 07/21/24 spironolactone 25 mg tablet 25 mg PO QAM 07/21/24 07/21/24 vibegron 75 mg tablet (Gemtesa) 75 mg PO DAILY 07/21/24 07/21/24 Previous Rx's ?Medication ?Instructions ?Recorded cephalexin 500 mg capsule 500 mg PO BID #10 caps 01/12/25 <Shira Jaimes MD - Last Filed: 01/15/25 11:22> Allergies/adverse reactions: Allergies Allergy/AdvReac Type Severity Reaction Status Date / Time Sulfa (Sulfonamide Allergy Severe dyspnea Verified 01/11/25 17:20 Antibiotics) amoxicillin Allergy Unknown Verified 01/11/25 17:20 <Shira Jaimes MD - Last Filed: 01/15/25 11:22> Review of Systems Status of ROS: Reports: 10 or more systems reviewed and unremarkable except as noted in History and below <Shira Jaimes MD - Last Filed: 01/15/25 11:22> [facility] [place] History: Medical History Sinus congestion ?R09.81 - Nasal congestion (ICD-10) Cough ?R05.9 - Cough, unspecified (ICD-10) Pulmonary hypertension ?I27.20 - Pulmonary hypertension, unspecified (ICD-10) Atrial fibrillation ?I48.91 - Unspecified atrial fibrillation (ICD-10) History of DVT (deep vein thrombosis) ?Z86.718 - Personal history of other venous thrombosis and embolism (ICD-10) Elevated troponin ?R77.8 - Other specified abnormalities of plasma proteins (ICD-10) Long QT interval ?R94.31 - Abnormal electrocardiogram [ECG] [EKG] (ICD-10) Essential hypertension ?I10 - Essential (primary) hypertension (ICD-10) Congestive heart failure ?I50.9 - Heart failure, unspecified (ICD-10) Hernia ?K46.9 - Unspecified abdominal hernia without obstruction or gangrene (ICD-10) <Shira Jaimes MD - Last Filed: 01/15/25 11:22> Surgical History: Surgical History History of total right knee replacement (~2014) ?Z96.651 - Presence of right artificial knee joint (ICD-10) History of carpal tunnel release of both wrists ?Z98.890 - Other specified postprocedural states (ICD-10) History of cholecystectomy (~2018) ?Z90.49 - Acquired absence of other specified parts of digestive tract (ICD-10) <Shira Jaimes MD - Last Filed: 01/15/25 11:22> Family History: Family History Mother Osteoarthritis Stomach cancer Brother Diabetes Father Diabetes <Shira Jaimes MD - Last Filed: 01/15/25 11:22> Social History: Social History Highest level of school completed/degree received: high school graduate Smoking Status: Never smoker Do you use any of these nicotine containing products: None Second hand tobacco smoke exposure: No How often do you have a drink containing alcohol: monthly or less AUDIT-C Alcohol total score: 1 Non-prescribed substance use: denies use Caffeine: Yes (cup of coffee or pop a day) service: No <Shira Jaimes MD - Last Filed: 01/15/25 11:22> Exam Narrative: Exam Narrative: Vital signs reviewed In general, alert, nontoxic elderly woman. Breathing easily, looks comfortable. Head: Normocephalic, atraumatic. Eyes: Sclera clear. Pupils equal and reactive. ENT: Mucous membranes moist. Neck: Supple without adenopathy. Heart: Irregular, normal rate. Lungs: Clear. No increased work of breathing, crackles or wheezes. Abdomen: Soft, some mild diffuse tenderness without rebound guarding or rigidity. Extremities: Well perfused, pulses intact. No significant edema. Neurologic: Alert, conversant. Speech fluent, face symmetric. Moves all extremities equally. Skin: Warm, dry well perfused. Affect: Normal. <Shira Jaimes MD - Last Filed: 01/15/25 11:22> Const: Vital Signs, click to edit/add: Vital Signs - 24 hr 01/11/25 13:32 01/11/25 15:35 01/11/25 17:46 Temperature 98.2 F Pulse Rate [Pulse Oximeter] 64 93 Respiratory Rate 16 16 Blood Pressure [Ri ght Upper Arm] 95/58 L 103/68 Pulse Oximetry 100 96 Oxygen Delivery Me thod Room Air Room Air <Shira Jaimes MD - Last Filed: 01/15/25 11:22> Vital Signs, click to edit/add: Vital Signs - 24 hr 01/11/25 13:32 01/11/25 15:35 01/11/25 17:46 Temperature 98.2 F Pulse Rate [Pulse Oximeter] 64 93 Respiratory Rate 16 16 Blood Pressure [Ri ght Upper Arm] 95/58 L 103/68 Pulse Oximetry 100 96 Oxygen Delivery Me thod Room Air Room Air <Natalie Anderson MD - Last Filed: 01/11/25 19:22> Course Course ED Course: I looked with the bedside ultrasound, I do not see any evidence of significant ascites. Will check some labs, UA, and go from there. Diagnostic considerations would include pre renal or postrenal azotemia, more subtle ascites, cirrhosis, other acute abdominal processes like diverticulitis, bladder infection, pyelonephritis, injuries related to fall such as fracture or retro peritoneal hematoma. Her labs are all reassuring. She was able to provide a urine sample, urine does not look particularly concentrated and no evidence of infection. Her renal function is normal, other labs reassuring. Given her recent fall, complaints of low back pain, and abdominal distension, will dose do CT scan of the abdomen and lumbar spine and make sure there is nothing acute there. This is signed out to oncoming provider, if results are negative, I think it is reasonable to discharge home with primary care follow-up. <Shira Jaimes MD - Last Filed: 01/15/25 11:22> Reevaluation(s) Time of Reevaluation #1: 19:10 <Natalie Anderson MD - Last Filed: 01/11/25 19:22> Reevaluation #1: Have reviewed with patient that her lumbar spine CT is not showing any evidence of fracture but there are degenerative changes. We reviewed her abdominal CT. She does have the antibiotic beads in the abdominal wall which was placed before, had infection in the abdominal wall and has mesh for abdominal wall hernia. There is no evidence of active infection. They do see moderate stool burden. She admits to constipation, she states she has been having difficulty going. She has not used anything like MiraLax. She has not tried anything like dietary modification. In this patient would feel that perhaps attempt with food and non medication management might be safest. She could try something is easy as prunes, oatmeal, discussed foods that can be helpful. Will give her handout. She would like to discharge to home, do feel it is safe for this at this time. <Natalie Anderson MD - Last Filed: 01/11/25 19:22> Vital Signs Vital signs: Initial Vital Signs Temperature 98.2 F 01/11/25 13:32 Temperature Source Temporal Artery Scan 01/11/25 13:32 Pulse Rate 64 01/11/25 13:32 Pulse Rhythm Regular 01/11/25 13:32 Respiratory Rate 16 01/11/25 13:32 Blood Pressure 95/58 L 01/11/25 13:32 Blood Pressure Mean 70 01/11/25 13:32 Blood Pressure Position Sitting 01/11/25 13:32 Pulse Oximetry 100 01/11/25 13:32 Oxygen Delivery Method Room Air 01/11/25 13:32 Vital Signs Temperature 98.2 F 01/11/25 13:32 Pulse Rate 64 01/11/25 13:32 Respiratory Rate 16 01/11/25 13:32 Blood Pressure 95/58 L 01/11/25 13:32 Pulse Oximetry 100 01/11/25 13:32 Oxygen Delivery Method Room Air 01/11/25 13:32 Temperature 98.2 F 01/11/25 13:32 Pulse Rate 93 01/11/25 17:46 Respiratory Rate 16 01/11/25 17:46 Blood Pressure 103/68 01/11/25 15:35 Pulse Oximetry 96 01/11/25 17:46 Oxygen Delivery Method Room Air 01/11/25 17:46 <Shira Jaimes MD - Last Filed: 01/15/25 11:22> Initial Vital Signs Temperature 98.2 F 01/11/25 13:32 Temperature Source Temporal Artery Scan 01/11/25 13:32 Pulse Rate 64 01/11/25 13:32 Pulse Rhythm Regular 01/11/25 13:32 Respiratory Rate 16 01/11/25 13:32 Blood Pressure 95/58 L 01/11/25 13:32 Blood Pressure Mean 70 01/11/25 13:32 Blood Pressure Position Sitting 01/11/25 13:32 Pulse Oximetry 100 01/11/25 13:32 Oxygen Delivery Method Room Air 01/11/25 13:32 Vital Signs Temperature 98.2 F 01/11/25 13:32 Pulse Rate 64 01/11/25 13:32 Respiratory Rate 16 01/11/25 13:32 Blood Pressure 95/58 L 01/11/25 13:32 Pulse Oximetry 100 01/11/25 13:32 Oxygen Delivery Method Room Air 01/11/25 13:32 Temperature 98.2 F 01/11/25 13:32 Pulse Rate 93 01/11/25 17:46 Respiratory Rate 16 01/11/25 17:46 Blood Pressure 103/68 01/11/25 15:35 Pulse Oximetry 96 01/11/25 17:46 Oxygen Delivery Method Room Air 01/11/25 17:46 <Natalie Anderson MD - Last Filed: 01/11/25 19:22> Medications Administered Medications: Discontinued Medications Generic Name Dose Route Start Last Admin Trade Name Freq PRN Reason Stop Dose Admin Sodium Chloride 500 mls @ 500 mls/hr 01/11/25 15:28 01/11/25 18:39 0.9 % Sodium Chloride 500 Ml IV 01/11/25 16:27 Not Given .Q1H ONE <Shira Jaimes MD - Last Filed: 01/15/25 11:22> Discontinued Medications Generic Name Dose Route Start Last Admin Trade Name Freq PRN Reason Stop Dose Admin Sodium Chloride 500 mls @ 500 mls/hr 01/11/25 15:28 01/11/25 18:39 0.9 % Sodium Chloride 500 Ml IV 01/11/25 16:27 Not Given .Q1H ONE <Natalie Anderson MD - Last Filed: 01/11/25 19:22> Medical Decision Making Lab Data Labs: Lab Results 01/11/25 01/11/25 01/11/25 Range/Units 15:28 15:50 16:30 WBC 5.22 (4.50-11.00) K/uL RBC 4.25 (4.00-5.20) m/uL Hgb 13.3 (12.0-16.0) gm/dL Hct 39.8 (33.0-51.0) % MCV 94 (80-100) fL MCH 31 (26-34) pg MCHC 33 (32-36) gm/dL RDW Coeff of Dusty 12.1 (11.5-15.5) % Plt Count 297 (140-440) K/uL Neut % (Auto) 62.3 (42.0-72.0) % Lymph % (Auto) 21.6 (20-44) % [place] % (Auto) 11.1 H (0.0-11.0) % Eos % (Auto) 3.8 (0.0-7.0) % Baso % (Auto) 1.0 (0.0-3.0) % Neut # (Auto) 3.25 (1.7-7.0) K/uL Lymph # (Auto) 1.13 (0.90-2.90) K/uL [place] # (Auto) 0.60 (0.00-0.90) K/UL Eos # (Auto) 0.20 (0.00-0.50) K/uL Baso # (Auto) 0.05 (0.00-0.30) K/uL Abs Immat Gran (auto) 0.01 (0.00-0.30) K/uL Imm/Tot Granulo (auto) 0.2 % INR 1.71 H (0.91-1.10) Sodium 136 (135-149) mmol/L Potassium 4.0 (3.6-5.1) mmol/L Chloride 100 (96-114) mmol/L Carbon Dioxide 31 (20-32) mmol/L Anion Gap 5 L (7-15) mEq/L BUN 18 (7-30) mg/dL Creatinine 0.8 (0.5-1.5) mg/dL Estimated GFR 75 ml/min Glucose 84 (60-115) mg/dL Calcium 9.2 (8.4-10.6) mg/dL Magnesium 1.9 (1.5-2.6) mg/dL Total Bilirubin 0.8 (0.1-1.5) mg/dL Direct Bilirubin 0.4 (0.0-0.5) mg/dL AST 29 (12-35) U/L ALT 15 (4-35) U/L Alkaline Phosphatase 116 (40-150) U/L C-Reactive Protein < 0.5 L (0.5-1.0) mg/dL NT-Pro-B Natriuret Pep 5060 H (See Note) pg/mL Total Protein 7.2 (6.0-8.3) g/dL Albumin 3.8 (3.3-5.0) g/dL Lipase 146 (23-300) U/L TSH 1.670 (0.270-4.200) uIU/mL Urine Color Dark yellow (Yellow) Urine Appearance Clear (Clear) Urine pH 6.0 (5.0-8.5) Ur Specific [place] 1.025 (1.000-1.030) Urine Protein Trace A (Negative) Urine Glucose (UA) Negative (Negative) Urine Ketones Trace A (Negative) Urine Blood Negative (Negative) Urine Nitrite Negative (Negative) Urine Bilirubin 1+ A (Negative) Urine Urobilinogen 2.0 A (0.2-1.0) Ur Leukocyte Esterase Negative (Negative) Urine RBC 0-2 (0-2) Urine WBC 0-2 (0-5) Ur Squamous Epith Cells Few (None-Few) Urine Bacteria Few A (None) POC Troponin I 0.01 (0.01-0.04) ng/ml <Shira Jaimes MD - Last Filed: 01/15/25 11:22> Lab Results 01/11/25 01/11/25 01/11/25 Range/Units 15:28 15:50 16:30 WBC 5.22 (4.50-11.00) K/uL RBC 4.25 (4.00-5.20) m/uL Hgb 13.3 (12.0-16.0) gm/dL Hct 39.8 (33.0-51.0) % MCV 94 (80-100) fL MCH 31 (26-34) pg MCHC 33 (32-36) gm/dL RDW Coeff of Dusty 12.1 (11.5-15.5) % Plt Count 297 (140-440) K/uL Neut % (Auto) 62.3 (42.0-72.0) % Lymph % (Auto) 21.6 (20-44) % [place] % (Auto) 11.1 H (0.0-11.0) % Eos % (Auto) 3.8 (0.0-7.0) % Baso % (Auto) 1.0 (0.0-3.0) % Neut # (Auto) 3.25 (1.7-7.0) K/uL Lymph # (Auto) 1.13 (0.90-2.90) K/uL [place] # (Auto) 0.60 (0.00-0.90) K/UL Eos # (Auto) 0.20 (0.00-0.50) K/uL Baso # (Auto) 0.05 (0.00-0.30) K/uL Abs Immat Gran (auto) 0.01 (0.00-0.30) K/uL Imm/Tot Granulo (auto) 0.2 % INR 1.71 H (0.91-1.10) Sodium 136 (135-149) mmol/L Potassium 4.0 (3.6-5.1) mmol/L Chloride 100 (96-114) mmol/L Carbon Dioxide 31 (20-32) mmol/L Anion Gap 5 L (7-15) mEq/L BUN 18 (7-30) mg/dL Creatinine 0.8 (0.5-1.5) mg/dL Estimated GFR 75 ml/min Glucose 84 (60-115) mg/dL Calcium 9.2 (8.4-10.6) mg/dL Magnesium 1.9 (1.5-2.6) mg/dL Total Bilirubin 0.8 (0.1-1.5) mg/dL Direct Bilirubin 0.4 (0.0-0.5) mg/dL AST 29 (12-35) U/L ALT 15 (4-35) U/L Alkaline Phosphatase 116 (40-150) U/L C-Reactive Protein < 0.5 L (0.5-1.0) mg/dL NT-Pro-B Natriuret Pep 5060 H (See Note) pg/mL Total Protein 7.2 (6.0-8.3) g/dL Albumin 3.8 (3.3-5.0) g/dL Lipase 146 (23-300) U/L TSH 1.670 (0.270-4.200) uIU/mL Urine Color Dark yellow (Yellow) Urine Appearance Clear (Clear) Urine pH 6.0 (5.0-8.5) Ur Specific [place] 1.025 (1.000-1.030) Urine Protein Trace A (Negative) Urine Glucose (UA) Negative (Negative) Urine Ketones Trace A (Negative) Urine Blood Negative (Negative) Urine Nitrite Negative (Negative) Urine Bilirubin 1+ A (Negative) Urine Urobilinogen 2.0 A (0.2-1.0) Ur Leukocyte Esterase Negative (Negative) Urine RBC 0-2 (0-2) Urine WBC 0-2 (0-5) Ur Squamous Epith Cells Few (None-Few) Urine Bacteria Few A (None) POC Troponin I 0.01 (0.01-0.04) ng/ml <Natalie Anderson MD - Last Filed: 01/11/25 19:22> Imaging Data CT Lumbar spine: Attestation: I have reviewed the pertinent imaging results. <Natalie Anderson MD - Last Filed: 01/11/25 19:22> Radiologist's impression: Patient: MIKE CHEEMA Facility:[facility] Patient ID:?[id number] Site Patient ID:?[id number]. Site :?[id number] Study:?CT-Spine Lumbar -01/11/2025 5:19:25 PM Ordering Physician:Lani Silva Final Report: Indication: Fall. Technique: Noncontrast CT images of the lumbar spine. Comparison: None. Findings: Exaggerated lumbar lordosis. [id number] biconvex lumbar curvature. Mild grade 1 anterolisthesis L4 on L5 and L5 on S1. Bilateral facet joint ankylosis at L4-5. Multilevel posterior disc bulging and endplate spondylitic ridging without high-grade spinal canal stenosis. Advanced facet arthropathy at L3-4 and L5-S1. Multilevel endplate spondylitic ridging and facet arthropathy contributing up to moderate neural foraminal stenosis on the right at L5-S1. Sacroiliac joint degenerative changes. Impression: 1. No acute fracture. 2. Multilevel lumbar spondylosis, including advanced multilevel facet arthropathy. Please note that all CT scans at this facility use dose modulation, iterative reconstruction, and/or weight-based dosing when appropriate to reduce radiation dose to as low as reasonably achievable. Dictated by Raymundo Medel MD @ 01/11/2025 5:40:35 PM (Electronic Signature) <Natalie Anderson MD - Last Filed: 01/11/25 19:22> Discharge Plan Discharge Clinical Impression: Low back pain, Constipation <Shira Jaimes MD - Last Filed: 01/15/25 11:22> Patient Disposition: Home, Self-Care <Shira Jaimes MD - Last Filed: 01/15/25 11:22> Condition: Stable <Shira Jaimes MD - Last Filed: 01/15/25 11:22> Instructions: Constipation (ED), High Fiber Diet (ED) <Shira Jaimes MD - Last Filed: 01/15/25 11:22> Additional Instructions: Your tests today are a largely reassuring. Your CT scan does not show any traumatic injuries from your fall, your blood work shows normal kidney and liver function, and there is no evidence of fluid buildup in your abdomen. You can use Tylenol as needed for pain. I would recommend a recheck with your primary doctor in the next week or so. Return to the ER at any time if you develop new symptoms such as fevers, severe uncontrolled pain, difficulty breathing, etcetera. For constipation, can simply try things like out male, more fiber in your diet. Prunes or prune juice sometimes is enough for some patients. If you are not finding dietary management adequate, can consider use of MiraLax, follow bottle directions. Please recheck with your primary care provider in clinic within the next week for recheck. <Shira Jaimes MD - Last Filed: 01/15/25 11:22> Prescriptions: New cephalexin 500 mg capsule 500 mg PO BID Qty: 10 0RF No Action carboxymethylcellulose sodium 1 % drops, liquid gel 1 drp ophthalmic (eye) DAILY sodium chloride 5 % drops 5 drp ophthalmic (eye) DAILY cholecalciferol (vitamin D3) 25 mcg (1,000 unit) tablet 25 mcg PO BID famotidine 20 mg tablet 20 mg PO BID furosemide 20 mg tablet 20 mg PO DAILY escitalopram oxalate 10 mg tablet 10 mg PO DAILY Xarelto 20 mg tablet 20 mg PO QPM metoprolol succinate 100 mg tablet extended release 24 hr 100 mg PO BID simvastatin 20 mg tablet 20 mg PO QPM Gemtesa 75 mg tablet 75 mg PO DAILY spironolactone 25 mg tablet 25 mg PO QAM acetaminophen 500 mg tablet 1,000 mg PO Q6H PRN Patient Comments: Take 1,000 mg by mouth every 6 hours if needed. Max acetaminophen dose: 4000mg in 24 hrs. polyethylene glycol 3350 17 gram/dose powder 17 g PO BID Patient Comments: Take 17 g by mouth 2 times daily. <Shira Jaimes MD - Last Filed: 01/15/25 11:22> Follow Up/Referrals: Eloise Malave MD [Primary Care Provider, Family Practice] <Shira Jaimes MD - Last Filed: 01/15/25 11:22> Stand Alone Forms: [facility] Info Instructions <Shira Jaimes MD - Last Filed: 01/15/25 11:22>
--- OUTSIDE RECORDS SUMMARY | 2025-01-11 15:45 | XMS_ITS ---
Author Name Interface, [id number] lity Address [address] [place] [id number] [facility] Address [address] [place] [id number] Allergies and Adverse Reactions Plan Reason for Visit Encounters Immunizations Diagnostic Results Medications Problems Vital Signs
--- OUTSIDE RECORDS SUMMARY | 2025-01-11 15:45 | XMS_ITS ---
Author Name Interface, [id number] lity Address [address] [place] [id number] [facility] Address [address] [place] [id number] Allergies and Adverse Reactions Plan Reason for Visit Encounters Medications Problems Vital Signs Notes Section
--- OUTSIDE RECORDS SUMMARY | 2025-01-11 15:45 | XMS_ITS ---
Author Name Interface, [id number] lity Address [address] [place] [address] [address] [place] [address] [facility] Address [address] [place] [address] [address] [place] [address] Allergies and Adverse Reactions Medication/Group Name Reaction Severity Date Sulfa (Sulfonamide Antibiotics) Rash 11/02/2024 Penicillins 11/02/2024 AMOXICILLIN Nausea Only 11/02/2024 CEPHALEXIN Rash 11/02/2024 Plan Date Type Value 11/02/2024 APPOINTMENT LAB 15 MIN 11/02/2024 APPOINTMENT NEW PT CONSULT 6 0 MIN Reason for Visit NEW PT CONSULT 60 MIN Encounters Date Name 11/02/2024 Atrial fibrillation with rapid ventricular response (disorder) 11/02/2024 Chronic diastolic he art failure (disorder) 11/02/2024 Essential hypertensi on (disorder) 11/02/2024 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 0 U Once a Day active 11/02 Acetamin ophen Oral Oral 500.0 mg Once every 6 Hours active 11/02 Famotidi ne Oral Oral 20.0 mg Once every 0.5 Days 2024 active 11/02 Rivaroxa ban Oral Oral 20.0 mg Once a Day 2024 active 11/02 Spironol actone Oral Oral 25.0 mg Once a Day 2024 active 11/02 Metoprol ol Oral 24 hr Tab (Succina te) Oral 100.0 mg Once every 0.5 Days 2024 active 11/02 Simvasta tin Oral Oral 20.0 mg Once a Day 2024 active 11/02 Escitalo pram Oral 2024 active 11/02 Vibegron Oral Oral 75.0 mg Once a Day 2024 active 11/02 Furosemi de Oral Oral 20.0 mg Once a Day 2024 active Problems Diagnosis Status Date of Diagnosis Resolution Date Osteoarthritis (disorder) Active Primary malignant neoplasm o f female breast (disorder) Active 08/22/2018 Hypertensive disorder, syste sathya arterial (disorder) Active Estrogen receptor positive status [ER+] Active Hypercholesterolemia (disorder) Active Osteopenia (disorder) Active Breast pain Active Dizziness (finding) Active History of malignant neoplas m of breast (situation) Active Chronic diastolic heart failure (disorder) Active History of deep vein thrombosis (situation) Active Essential hypertension (disorder) Active Hyperlipidemia (disorder) Active 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 Atrial fibrillation with rap id ventricular response (disorder) Active Paroxysmal atrial fibrillation (disorder) Active Vital Signs Date Type Value 11/02/2024 Body Temperature 98.40 11/02/2024 Heart Beat 60.00 11/02/2024 Respiratory Rate 16.00 11/02/2024 Oxygen Saturation 100.00 11/02/2024 BSA 1.71 11/02/2024 Pain Scale 0.00 11/02/2024 Weight 161.80 11/02/2024 Height 60.00 11/02/2024 BMI 31.60 11/02/2024 Intravascular Systolic 118 11/02/2024 Intravascular Diastolic 62 Notes Section * Med Onc Follow-up Note Patient Name: RACQUEL CHEEMA Date Of : 1945 Today's Provider:?Lenny Suarez MD Date of Service:?11/02/2024 Attending Physician:?Lenny Suarez (Hematology/Oncology) Referring Provider: Eloise Malave MD (Family Medicine) HEMATOLOGY/ MEDICAL ONCOLOGY FOLLOW UP VISIT Reason for Visit Came back for follow-up??for breast cancer Assessment 1. ??Left breast cancer diagnosed in Aug, 2018. ??? Stage IA Infiltrating ductal carcinoma, grade 2,??ER positive, RI positive, HER-2 negative?Patient was treated with lumpectomy??and radiation therapy no endocrine therapy 2. Osteopenia 3. Numerous comorbidities ???Including but not limited to: Obesity, ventral hernia, chronic diastolic heart failure, hypertension, hypercholesterolemia, DVT 4.?? She tells me she has a history of DVT 5. 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 A-fib and other cardiac conditions ??? She is on anticoagulation Plan BREAST CA: 1.?Annual mamograms ??mammogram is performed, patient not certain she will do future mammograms 2. ??From breast cancer standpoint no evidence of recurrence??she can continue follow-up with her PCP to minimize??MD visits 3. ??Follow-up with us??as needed OSTEO: 1.?? Continue calcium and vitamin D DVT: 1.?? Continue lifelong anticoagulation 2.?? We will review further we can find records on??heterozygous for prothrombin gene mutation 3.?? Family numbers may want to be tested for the same OTHER: 1.?? Memory care physician, cardiology regarding other medical conditions Pain Scale on Today's Visit 0 Pain Plan on Today's Visit No pain plan indicated for today Smoking Status Smoking Tobacco : Never smoker; Smokeless Tobacco : none found; Vaping : none found Depression Screening Tool Status Was screened; Outcome positive: No; Screening Date: 11/02/2024; Screening Tool: PRIME HUTCHINSON-PHQ2; Total depression score: 0 History of Present Illness 72-year-old postmenopausal female with no major risk factors of breast cancer, abnormality was detected on routine mammography that led to further testing. ??Routine mammography routine mammography 1. ??08/20/2018: Ultrasound performed of left breast along with needle biopsy targeted ultrasound performed 1 o'clock position shows a mass measuring 4 x 5 x 4 mm. 2. ??08/20/2018: Left breast ultrasound shows invasive ductal carcinoma micropapillary features, grade 2, angiolymphatic invasion present, ER +90%, RI +90%, HER-2 negative 3. ??09/18/2018: Left breast lumpectomy performed which shows ???Invasive ductal carcinoma micropapillary features of grade 2 ???0.5 cm ???ER RI and HER-2 as reported ???Lymph nodes negative for carcinoma. ???pT [id number] ???Margins negative 4.?11/13/2018 to 12/11/2018: Received radiation therapy 5256 and a zavala to the breast total dose 5. On observation??no endocrine therapy DVY: 1.?? 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 ??In symptoms that she has been worried about Review of Systems Remaining 14 point comprehensive review of systems within normal limits. NCCN Distress Thermometer and Problem List were collected and documented in the patient chart.?? Remarkable symptoms and concerns were discussed with the patient.?? Any additional follow-up is indicated in the plan. Past Medical and Surgical History PAST MEDICAL HISTORY:? 1. ??Hypertension 2. ??Hypercholesterol 3. ??Breast cancer ?? PAST SURGICAL HISTORY:? 1. ??Has had numerous abdominal surgeries including ventral hernia resulting from that per her description 2. ??Breast lumpectomy ?? REPRODUCTIVE HISTORY Menarche at age 14, age of first live 23, number pregnancies 4, number of live births 3, postmenopausal, no hormone replacement Current Medications Medication List Name Date Cholecalciferol Oral 11/02/2024 Metoprolol Oral 24 hr Tab (Succinate) Acetaminophen Oral 11/02/2024 Furosemide Oral 11/02/2024 Simvastatin Oral 11/02/2024 Vibegron Oral 11/02/2024 Carboxymethylcellulose Ophthalmic Drops 11/02/2024 Famotidine Oral 11/02/2024 Rivaroxaban Oral 11/02/2024 Escitalopram Oral 11/02/2024 Spironolactone Oral 11/02/2024 Allergies AMOXICILLIN, CEPHALEXIN, Penicillins and Sulfa (Sulfonamide Antibiotics) Family History ??cousin with pancreatic cancer unknown age notes genetic testing has been done and negative for actionable mutation mutation of uncertain significance seen in [facility]. Offspring/Siblings/Nieces/Nephews: ??? Son: prostate cancer at 40. His father also has a history of prostate and lung cancer. ??? Brother: prostate cancer at 57. Maternal: ??? Mother: stomach cancer at 84, of this cancer at 85. ??? Maternal first cousin: pancreatic cancer at 40, of this cancer at 41. His father (not Racquel's biological relative) also had pancreatic cancer Social History , does not smoke, does not drink, retired, from [employer]. ??She has 3 children one daughter,?? 2 sons and 8 grandkids independent active but admits to needing to exercise. Younger son lives in the basement. She uses a cane and walker Vital Signs Blood pressure: 118/62, Pulse: 60, Temperature: 98.4 F, Respirations: 16, O2 sat: 100%, Pain Scale:0, Height: 60 in, Weight: 161.8 lb, BSA: 1.71, BMI: 31.6 kg/m2 Covid-19 vaccine (Moderna) (08/10/2020), Elsewhere; Covid-19 vaccine (Moderna) (08/10/2020), Elsewhere; Covid-19 vaccine (Pfizer) (2023), Elsewhere; Flu vaccine - Adult (2023), Elsewhere; Flu vaccine- Adult (01/2019), Elsewhere; Flu vaccine - Adult (2019), Elsewhere Performance Status ECOG or Karnofsky ECOG: Not recorded Karnofsky: Not recorded Physical Exam Neck: Supple, without masses, lymphadenopathy or tenderness. Respiratory: Normal respiratory effort. Lungs are clear with good breath sounds. Heart: RR without murmurs, rubs, or gallops. Abdomen: The abdomen was flat, soft and nontender without guarding rebound or masses.?? Noted??beads across abdomen that were related to hernia surgery Nodes: no cervical, supraclavicular, axillary or inguinal adenopathy Extremities: Full ROM without limitation, deformity or edema. Genetics/Molecular/Biomarkers * Primary malignant neoplasm of female breast (disorder) ( Stage Date: 10/14/2018, Stage IA (Primary,Left breast upper-outer quadrant, T1a, pN0, M0, ER Status: Positive, RI Status: Positive, 2: Intermediate combined histologic grade (moderately favorable), SBR score of 6-7 points) Date of Dx:08/22/2018 Histopathologic Type: Ductal invasive carcinoma; Lymph- Vascular Invasion: Present; HER-2/aicha Value-IHC: 1+; First record:10/14/2018 Last record:11/20/2018 Other Migrated ICD10: C50.412 ) Additional Labs, Imaging, and Other Studies Lab Results ? Surveys/Consents/Other Discussions Lenny Suarez MD CC: FAX Eloise Malave MD (Referring) Gael Hammond MD Electronically signed by Lenny Suarez MD 11/02/2024 15:59 CDT
--- OUTSIDE RECORDS SUMMARY | 2025-01-11 15:45 | XMS_ITS | Clinical Summary ---
Author Organization [facility] Address [address] , [address] [place] [address] Phone Care Team Providers Care Cra Officer Name Role Phone [facility] Unavailable Unava ilable Conditions or Problems Problem Name Problem Code Onset Date Status Entry Date Provider Comment Standard Description Annotate Parkinsonism, unspecified 01141334 (SNOMED CT) 05/06 Active 05/06 Elise Elias PA-C Parkinsonism Weakness 16467789 (SNOMED CT) 09/01 Active 09/01 Miles Capellan MD Asthenia Gait imbalance 841493644 (SNOMED CT) 09/01 Active 09/01 Miles Capellan MD Abnormal gait due to impairment of balance Parkinsonism 18666420 (SNOMED CT) 09/01 Active 09/01 Miles Capellan MD Parkinsonism Tremor 99295634 (SNOMED CT) 06/21 Active 06/21 Tony Davey [...] hours after a meal 10/22 carbidopa-levodop a 18342274696 Elise Elias PA-C CARBIDOPA-LEVOD OPA 25-100 MG TABS Take 1 tablet by mouth three times a day at 7 am, 11:30 am and 4:30 pm carbidopa-levodop a 62051288937 [facility] FAMOTIDINE 20 MG TABS Take 1 tablet by mouth twice a day famotidine 83913129810 [facility] Jacinta [facility] FISH OIL 500 MG CAPS omega 4-uvw-jzq-fish oil 03305351900 Elise Jacinta [facility] RA CALCIUM 600 1500 (600 Ca) MG TABS calcium carbonate 68581459662 [facility] Jacinta [facility] METOPROLOL SUCCINATE ER 50 MG [id number] Take 1 tablet by mouth twice a day metoprolol succinate 58579630564 [facility] Jacinta [facility] DILTIAZEM HCL ER COATED BEADS 120 MG [id number] 05/06 diltiazem hcl 83261587078 Elise Jacinta [facility] ESCITALOPRAM OXALATE 5 MG TABS 05/06 escitalopram oxalate 57817632600 [facility]inta [facility] METOPROLOL SUCCINATE ER 100 MG [id number]-LWN 05/06 metoprolol succinate 18562036049 [facility] Jacinta [facility] ESCITALOPRAM OXALATE 10 MG TABS 05/06 escitalopram oxalate 53694735350 Elise Jacinta [facility] TYLENOL EXTRA STRENGTH 500 MG TABS up to 6 tab per day prn acetaminophen 16963199493 [facility] Jacinta [facility] CARBIDOPA-LEVOD OPA 25-100 MG TABS Take 1 tablet by mouth three times a day -Start Sinemet 25/100 one tablet per day for 3 days, then twice per day for 3 days, then 3 times per day thereafter. Take 1 hour before or 2 hours after a meal 10/30 carbidopa-levodop a 59741599404 Miles Capellan MD ESCITALOPRAM OXALATE 5 MG TABS 05/06 escitalopram oxalate 28550091477 Miles Capellan MD METOPROLOL SUCCINATE ER 100 MG [id number] 05/06 metoprolol succinate 99501683546 Miles Capellan MD DILTIAZEM HCL ER COATED BEADS 120 MG [id number] 05/06 diltiazem hcl 04307326202 Miles Capellan MD POTASSIUM CHLORIDE YAKELIN ER 20 MEQ CR-TABS Take 1 tablet by mouth twice a day 05/31 potassium chloride 12116694520 Elise Elias PA-C FAMOTIDINE 20 MG TABS Take 1 tablet by mouth once a day 07/11 famotidine 08681445080 Elise Elias PA-C METOPROLOL SUCCINATE ER 50 MG [id number] by mouth 05/31 metoprolol succinate 95720544798 Elise KEY-C ELIQUIS 5 MG TABS Take 1 tablet by mouth twice a day 05/31 apixaban 54064862943 Elise Elias PA-C FUROSEMIDE 20 MG TABS Take 1 tablet by mouth every morning furosemide 31347633332 Tony Davey MD ESCITALOPRAM OXALATE 10 MG TABS Take 1 tablet by mouth every morning escitalopram oxalate 29191821707 Miles Capellan MD ASPIRIN EC 81 MG TBEC Take 1 tablet by mouth twice a day 05/31 aspirin 72140419001 Elise KEY-C PEG 3350 17 GM/SCOOP POWD Take 17 gram by mouth twice a day 05/31 polyethylene glycol 3350 08098119865 Elise Elias PA-C SIMVASTATIN 20 MG TABS Take 40 mg by mouth every night 05/31 simvastatin 43766315244 Elise Velascoil PA-C FUROSEMIDE 40 MG TABS Take 20 mg by mouth once a day 05/31 furosemide 13746072830 Elise Elias PA-C METOPROLOL SUCCINATE ER 50 MG [id number] Take 1 tablet by mouth once a day 05/06 metoprolol succinate 22086477605 Toyn Davey MD OMEPRAZOLE 20 MG CPDR Take 1 capsule by mouth once a day 05/31 omeprazole 30917986950 [facility] Jacinta [facility] SIMVASTATIN 40 MG TABS Take 1 tablet by mouth every night simvastatin 29570150320 Tony Davey MD VITAMIN D3 25 MCG (1000 UT) TABS Take 1000 unit by mouth twice a day cholecalciferol (vitamin d3) 74278899613 Miles Capellan MD ESCITALOPRAM OXALATE 5 MG TABS Take 5 mg by mouth every morning 05/31 escitalopram oxalate 31995114389 [facility] ACETAMINOPHEN 500 MG TABS Take 1000 mg by mouth every six hours as needed 05/31 acetaminophen 70014585916 [facility] ESCITALOPRAM OXALATE 10 MG TABS Take 1 tablet by mouth once a day 05/31 escitalopram oxalate 39446025917 [facility] POTASSIUM CHLORIDE ER 10 MEQ CR-CAPS 1 cap daily potassium chloride 13190650087 [facility] XARELTO 20 MG TABS 1 tab daily rivaroxaban 91578944162 [facility] SIMVASTATIN 20 MG TABS Take 40 mg by mouth at bedtime. 05/31 simvastatin (ZOCOR) 20 mg tablet 26295912212 Miles Capellan MD POTASSIUM CHLORIDE YAKELIN ER 20 MEQ CR-TABS Take 1 tablet by mouth 2 times daily with meals. 05/31 potassium chloride (KLOR-CON M20) 20 mEq Extended-Release ta 59558727387 Miles Capellan MD PEG 3350 17 GM/SCOOP POWD Take 17 g by mouth 2 times daily. 05/31 polyethylene glycoL (MIRALAX) 17 gram/dose powder 67829277503 Miles Capellan MD METOPROLOL SUCCINATE ER 50 MG [id number] null 05/31 metoprolol succinate (TOPROL XL) 50 mg sustained-release tab 16283720398 Miles Capellan MD FUROSEMIDE 40 MG TABS Take 20 mg by mouth once daily. Indications: Accumulation of Fluid Resulting from Chronic Heart Failure 05/31 furosemide (LASIX) 40 mg tablet 15135317596 Miles Capellan MD FAMOTIDINE MAXIMUM STRENGTH 20 MG TABS null 05/31 famotidine (PEPCID) 20 mg tablet 76547231461 Miles Capellan MD ESCITALOPRAM OXALATE 5 MG TABS Take 5mg every morning with 10mg tablet for a total of 15mg daily. 05/31 escitalopram oxalate (LEXAPRO) 5 mg tablet 25934965995 Miles Capellan MD ESCITALOPRAM OXALATE 10 MG TABS Take 1 Tablet (10 mg) by mouth every morning. 05/31 escitalopram oxalate (LEXAPRO) 10 mg tablet 46152945404 Miles Capellan MD VITAMIN D3 25 MCG (1000 UT) TABS Take 1,000 Units by mouth 2 times daily. 05/31 cholecalciferol (VITAMIN D) 1,000 unit tablet 88564322650 Miles Capellan MD ASPIRIN 81 MG TBEC Take 1 tablet by mouth 2 times daily with meals. 11/03 aspirin (ECOTRIN) 81 mg enteric coated tablet 76555521482 Miles Capellan MD ACETAMINOPHEN 500 MG TABS Take 1,000 mg by mouth every 6 hours if needed. Max acetaminophen dose: 4000mg in 24 hrs. 05/31 acetaminophen (TYLENOL EXTRA STRGTH) 500 mg tablet 93912171169 Miles Capellan MD SIMVASTATIN 40 MG TABS TAKE 1 TABLET BY MOUTH EVERY EVENING WITH A MEAL 08/28 SIMVASTATIN 70317475984 Tony Davey MD FUROSEMIDE 20 MG TABS TAKE 1 TABLET BY MOUTH EVERY MORNING 05/31 FUROSEMIDE 13926918211 Tony Davey MD ESCITALOPRAM OXALATE 10 MG TABS TAKE 1 TABLET BY MOUTH DAILY 05/31 ESCITALOPRAM OXALATE 97704309248 Tony Davey MD OMEPRAZOLE 20 MG CPDR TAKE ONE CAPSULE BY MOUTH DAILY 10/30 OMEPRAZOLE 29001029673 Tony Davey MD ELIQUIS 5 MG TABS TAKE ONE TABLET BY MOUTH TWICE DAILY 05/31 APIXABAN 96881320380 Tony Davey MD METOPROLOL SUCCINATE ER 50 MG [id number] Take 1 tablet (50 mg total) by mouth daily. Do not crush or chew. 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 smoking status Internal Other: Verbal Autho rization/Emergency [...] 11:00 AM Miles Capellan MD , [address], [address], [place], [address], Pending order Follow up Pending order Follow [...] ORDERS Follow up ORDERS Patient Instructions [facility]-[id number] Documentation of current medicatio ns ORDERS Follow up MARJ ORDERS Patient Instructions ORDERS Patient Instructions ORDERS Patient Instructions ORDERS Follow up MARJ ORDERS Patient Instructions ORDERS Patient Instructions ORDERS Follow up MARJ ORDERS Patient Instructions ORDERS Patient Instructions ORDERS Instructions for Staff 03/06 ORDERS Follow up ORDERS Patient Instructions ORDERS Follow up in clinic or telemedicine 11/22 [facility]-[id number] Documentation of current medicatio ns ORDERS Follow up MARJ in clinic or telemedicine ORDERS Patient Instructions SCT-[id number] Documentation of current medicatio ns ORDERS Follow up ORDERS Follow up MARJ ORDERS Follow up MARJ ORDERS Patient Instructions ORDERS Aldolase ORDERS CK (Creatine Kinase) Total 2 SCT-[id number] Documentation of current medicatio ns ORDERS Follow up ORDERS EMG left upper ext 3 ORDERS EMG left lower ext 3 CPT-23877 Nerve Conduction 1-2 studies CPT-69415 EMG with NCS (5+ muscles) - 1 limb 10/13 CPT-4149735 Thoracic PS (T3-11) ORDERS CK (Creatine Kinase) Total 2 ORDERS Aldolase ORDERS Physical Therapy SCT-157745994 Fall risk assessment (procedure) SCT-[id number] Documentation of current medicatio ns CPT-08536 Brief emotional/behavioral assessment 202 SCT-442778138 Fall risk assessment (procedure) SCT-[id number] Documentation of current medicatio ns Vital Signs [...]
--- OUTSIDE RECORDS SUMMARY | 2025-01-11 15:46 | XMS_ITS | CCD ---
Author Name Interface, [id number] lity Address [address] [place], [place] [address] [place] [address] [facility] Address [address] [place] [address] Care Team Providers Care Director Of Housing And Energy Services Name Role Phone Erick HUTCHINSON, Lenny Hammond Unavailable Allergies and Adverse Reactions Care Plan Reason for Visit Encounters Functional Status Diagnostic Results Medications Problems Procedures Social History Vital Signs Notes Section
--- OUTSIDE RECORDS SUMMARY | 2025-01-11 15:46 | XMS_ITS | CCD ---
Author Name Interface, [id number] lity Address [address] [place], [place] [address] [place] [address] [facility] Address [address] [place] [address] Care Team Providers Care Medical Claims Manager Name Role Phone Erick HUTCHINSON, Lenny Hammond Unavailable Allergies and Adverse Reactions Care Plan Reason for Visit Encounters Functional Status Diagnostic Results Medications Problems Procedures Social History Vital Signs Notes Section
--- OUTSIDE RECORDS SUMMARY | 2025-01-11 15:46 | XMS_ITS ---
Author Name Interface, [id number] lity Address [address] [place] [address] [facility] Address [address] [place] [address] Allergies and Adverse Reactions Plan Reason for Visit Encounters Immunizations Diagnostic Results Medications Problems Vital Signs
[2025-01-11 16:05] LABS: Hematocrit* 39.8 % (33.0-51.0); Hemoglobin* 13.3 gm/dL (12.0-16.0); Immature Granulocytes Abs Auto 0.01 K/uL (0.00-0.30); Immature Granulocytes Pct Auto 0.2 %; Lymphocytes Absolute Auto 1.13 K/uL (0.90-2.90); Mean Corpuscular HGB Conc 33 gm/dL (32-36); Mean Corpuscular Hemoglobin 31 pg (26-34); Mean Corpuscular Volume 94 fL (80-100); RDW Coefficient of Variation % 12.1 % (11.5-15.5); Red Blood Count* 4.25 m/uL (4.00-5.20); White Blood Count* 5.22 K/uL (4.50-11.00)
[2025-01-11 16:12] LABS: Slide Review Reflex No
[2025-01-11 16:25] LABS: Albumin* 3.8 g/dL (3.3-5.0); Chloride* 100 mmol/L (96-114); Potassium* 4.0 mmol/L (3.6-5.1); Sodium* 136 mmol/L (135-149)
[2025-01-11 16:26] LABS: INR 1.71 (0.91-1.10); Prothrombin Time 21.1 Seconds
[2025-01-11 16:27] LABS: Blood Urea Nitrogen* 18 mg/dL (7-30); Creatinine* 0.8 mg/dL (0.5-1.5); Estimated Glomerular Filt Rate 75 ml/min
[2025-01-11 16:28] LABS: Alanine Aminotransferase* 15 U/L (4-35); Alkaline Phosphatase* 116 U/L (40-150); Anion Gap 5 mEq/L (7-15); Aspartate Amino Transferase* 29 U/L (12-35); Bilirubin Direct* 0.4 mg/dL (0.0-0.5); Bilirubin Total* 0.8 mg/dL (0.1-1.5); Calcium* 9.2 mg/dL (8.4-10.6); Carbon Dioxide* 31 mmol/L (20-32); Glucose* 84 mg/dL (60-115); Total Protein* 7.2 g/dL (6.0-8.3)
[2025-01-11 16:46] LABS: NT Pro B Type NatriureticPept* 5060 pg/mL (See Note)
[2025-01-11 16:48] LABS: Appearance Urine Clear (Clear)
--- NOTE | 2025-01-11 16:48 | CRLHL7_ITS ---
For Patients: As a result of the Century Cures Act, medical imaging exams and procedure reports are released immediately into your electronic medical record. You may view this report before your referring provider. If you have questions, please contact your health care provider. Indication: Fall. Technique: Noncontrast CT images of the lumbar spine. Comparison: None. Findings: Exaggerated lumbar lordosis. Hziu-qv-pgoaxzol biconvex lumbar curvature. Mild grade 1 anterolisthesis L4 on L5 and L5 on S1. Bilateral facet joint ankylosis at L4-5. Multilevel posterior disc bulging and endplate spondylitic ridging without high-grade spinal canal stenosis. Advanced facet arthropathy at L3-4 and L5-S1. Multilevel endplate spondylitic ridging and facet arthropathy contributing up to moderate neural foraminal stenosis on the right at L5-S1. Sacroiliac joint degenerative changes. Impression: 1. No acute fracture. 2. Multilevel lumbar spondylosis, including advanced multilevel facet arthropathy. Please note that all CT scans at this facility use dose modulation, iterative reconstruction, and/or weight-based dosing when appropriate to reduce radiation dose to as low as reasonably achievable. Dictated by Raymundo Medel MD @ 01/11/2025 5:40:35 PM (Electronically Signed)
--- NOTE | 2025-01-11 16:48 | CRLHL7_ITS ---
For Patients: As a result of the Century Cures Act, medical imaging exams and procedure reports are released immediately into your electronic medical record. You may view this report before your referring provider. If you have questions, please contact your health care provider. INDICATION: FALL 2 WEEKS AGO. LBP ABD PAIN DISTENTION TECHNIQUE: CT of the abdomen and pelvis was obtained with 74 mL of Isovue 370 intravenous contrast. Please note that all CT scans at this facility use dose modulation, iterative reconstruction, and/or weight-based dosing when appropriate to reduce radiation dose to as low as reasonably achievable. COMPARISON: 12/08/2021, 08/06/2022. FINDINGS: Lower thorax: Moderate coronary artery calcification. Moderate mitral annular calcification. Liver and biliary tree: Normal. Gallbladder: Status post cholecystectomy. Spleen: Normal. Pancreas: Mild fatty atrophy. Adrenal glands: Normal. Kidneys and ureters: No hydronephrosis or obstructing renal calculi. Gastrointestinal tract: Moderate colonic diverticulosis without CT evidence of acute diverticulitis. Postop changes from partial colonic resection. No evidence of acute appendicitis. No evidence of bowel obstruction. Moderate stool burden is seen in the colon. Peritoneal cavity: Normal. Bladder: Underdistended. Pelvic organs: Normal. Vasculature: Moderate calcification. Lymph nodes: Normal. Abdominal wall: Postsurgical changes are seen in the anterior abdominal wall with hyperattenuating rounded structures. Rectus diastasis. Likely postsurgical changes from ventral hernia repair with mesh. Musculoskeletal: Moderate degenerative changes of the bilateral hips and visualized spine. Moderate rightward curvature of the lumbar spine. Possible mild subtle L5 compression deformity. IMPRESSION: 1. Moderate stool burden is seen in the colon. No evidence of bowel obstruction. 2. Postsurgical changes from ventral hernia repair with mesh. Redemonstration of rounded hyperattenuating structures in the anterior abdominal wall, which may represent antibiotic beads. Consider correlation with surgical history. 3. Possible mild subtle L5 compression deformity, though osteopenia limits sensitivity and specificity for subtle fractures. Please note that all CT scans at this facility use dose modulation, iterative reconstruction, and/or weight-based dosing when appropriate to reduce radiation dose to as low as reasonably achievable. Dictated by Vijay Charles MD @ 01/11/2025 6:45:23 PM (Electronically Signed)
[2025-01-11 16:49] LABS: Troponin, Point-of-Care* 0.01 ng/ml (0.01-0.04)
[2025-01-11 17:45] LABS: TSH With Reflex to FT4* 1.670 uIU/mL (0.270-4.200)
[2025-01-11 17:46] VITALS: PULSE 93; RESP 16; O2SAT 96
--- NOTE | 2025-01-12 19:39 | ED.GENADULT ---
HPI - General Adult General Chief complaint: Back Injury/Pain Stated complaint: might have fluid in stomach/pain in lower back Time Seen by Provider: 01/11/25 15:16 History of Present Illness HPI narrative: Addendum to Dr. Gonzalez note for this patient. Urine culture coming back positive for Gram-negative rods today. Urinalysis when he was in the ER the other day was normal. I called the patient and she called me back after receiving a voicemail. She is endorsing longstanding urinary symptoms and incontinence but no definite change lately. Unclear if this with wears presented true infection or not. She denies any flank pain, fever, suprapubic pain. No definite dysuria. No blood in her urine. Difficult to know if this culture represents true infection or possible colonization. However with associated incontinence I think it is reasonable to try her on a course of antibiotics. Prescription for cephalexin 500 mg p.o. b.i.d. sent to her pharmacy at [facility] in [place]. She will pick it up and start taking it. Discussed with the patient that is [employer] season and sensitivity data not back yet. We may need to contact the patient again to change antibiotics based on further test results. 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 Related Data Home Medications ?Medication ?Instructions ?Recorded ?Confirmed carboxymethylcellulose sodium 1 % 1 drp ophthalmic (eye) DAILY 10/25/21 07/21/24 eye liquid gel drops cholecalciferol (vitamin D3) 25 25 mcg PO BID 10/25/21 07/21/24 mcg (1,000 unit) tablet sodium chloride 5 % eye drops 5 drp ophthalmic (eye) DAILY 10/25/21 07/21/24 escitalopram oxalate 10 mg tablet 10 mg PO DAILY 10/26/21 07/21/24 famotidine 20 mg tablet 20 mg PO BID 10/26/21 07/21/24 furosemide 20 mg tablet 20 mg PO DAILY 10/26/21 07/21/24 acetaminophen 500 mg tablet 1,000 mg PO Q6H PRN 12/07/21 07/21/24 polyethylene glycol 3350 17 17 g PO BID 12/07/21 07/21/24 gram/dose oral powder metoprolol succinate 100 mg 100 mg PO BID 07/21/24 07/21/24 tablet,extended release 24 hr rivaroxaban 20 mg tablet (Xarelto) 20 mg PO QPM 07/21/24 07/21/24 simvastatin 20 mg tablet 20 mg PO QPM 07/21/24 07/21/24 spironolactone 25 mg tablet 25 mg PO QAM 07/21/24 07/21/24 vibegron 75 mg tablet (Gemtesa) 75 mg PO DAILY 07/21/24 07/21/24 Previous Rx's ?Medication ?Instructions ?Recorded cephalexin 500 mg capsule 500 mg PO BID #10 caps 01/12/25 Allergies Allergy/AdvReac Type Severity Reaction Status Date / Time Sulfa (Sulfonamide Allergy Severe dyspnea Verified 01/11/25 17:20 Antibiotics) amoxicillin Allergy Unknown Verified 01/11/25 17:20 [facility] Medical History Sinus congestion ?R09.81 - Nasal congestion (ICD-10) Cough ?R05.9 - Cough, unspecified (ICD-10) Pulmonary hypertension ?I27.20 - Pulmonary hypertension, unspecified (ICD-10) Atrial fibrillation ?I48.91 - Unspecified atrial fibrillation (ICD-10) History of DVT (deep vein thrombosis) ?Z86.718 - Personal history of other venous thrombosis and embolism (ICD-10) Elevated troponin ?R77.8 - Other specified abnormalities of plasma proteins (ICD-10) Long QT interval ?R94.31 - Abnormal electrocardiogram [ECG] [EKG] (ICD-10) Essential hypertension ?I10 - Essential (primary) hypertension (ICD-10) Congestive heart failure ?I50.9 - Heart failure, unspecified (ICD-10) Hernia ?K46.9 - Unspecified abdominal hernia without obstruction or gangrene (ICD-10) Surgical History History of total right knee replacement (~2014) ?Z96.651 - Presence of right artificial knee joint (ICD-10) History of carpal tunnel release of both wrists ?Z98.890 - Other specified postprocedural states (ICD-10) History of cholecystectomy (~2018) ?Z90.49 - Acquired absence of other specified parts of digestive tract (ICD-10) Family History Mother Osteoarthritis Stomach cancer Brother Diabetes Father Diabetes Social History Highest level of school completed/degree received: high school graduate Smoking Status: Never smoker Do you use any of these nicotine containing products: None Second hand tobacco smoke exposure: No How often do you have a drink containing alcohol: monthly or less AUDIT-C Alcohol total score: 1 Non-prescribed substance use: denies use Caffeine: Yes (cup of coffee or pop a day) service: No Course Vital Signs Vital signs: Initial Vital Signs Temperature 98.2 F 01/11/25 13:32 Temperature Source Temporal Artery Scan 01/11/25 13:32 Pulse Rate 64 01/11/25 13:32 Pulse Rhythm Regular 01/11/25 13:32 Respiratory Rate 16 01/11/25 13:32 Blood Pressure 95/58 L 01/11/25 13:32 Blood Pressure Mean 70 01/11/25 13:32 Blood Pressure Position Sitting 01/11/25 13:32 Pulse Oximetry 100 01/11/25 13:32 Oxygen Delivery Method Room Air 01/11/25 13:32 Vital Signs Temperature 98.2 F 01/11/25 13:32 Pulse Rate 64 01/11/25 13:32 Respiratory Rate 16 01/11/25 13:32 Blood Pressure 95/58 L 01/11/25 13:32 Pulse Oximetry 100 01/11/25 13:32 Oxygen Delivery Method Room Air 01/11/25 13:32 Temperature 98.2 F 01/11/25 13:32 Pulse Rate 93 01/11/25 17:46 Respiratory Rate 16 01/11/25 17:46 Blood Pressure 103/68 01/11/25 15:35 Pulse Oximetry 96 01/11/25 17:46 Oxygen Delivery Method Room Air 01/11/25 17:46 Medications Administered Medications: Discontinued Medications Generic Name Dose Route Start Last Admin Trade Name Freq PRN Reason Stop Dose Admin Sodium Chloride 500 mls @ 500 mls/hr 01/11/25 15:28 01/11/25 18:39 0.9 % Sodium Chloride 500 Ml IV 01/11/25 16:27 Not Given .Q1H ONE Medical Decision Making Lab Data Labs: Lab Results 01/11/25 01/11/25 01/11/25 Range/Units 15:28 15:50 16:30 WBC 5.22 (4.50-11.00) K/uL RBC 4.25 (4.00-5.20) m/uL Hgb 13.3 (12.0-16.0) gm/dL Hct 39.8 (33.0-51.0) % MCV 94 (80-100) fL MCH 31 (26-34) pg MCHC 33 (32-36) gm/dL RDW Coeff of Dusty 12.1 (11.5-15.5) % Plt Count 297 (140-440) K/uL Neut % (Auto) 62.3 (42.0-72.0) % Lymph % (Auto) 21.6 (20-44) % Carbon % (Auto) 11.1 H (0.0-11.0) % Eos % (Auto) 3.8 (0.0-7.0) % Baso % (Auto) 1.0 (0.0-3.0) % Neut # (Auto) 3.25 (1.7-7.0) K/uL Lymph # (Auto) 1.13 (0.90-2.90) K/uL Carbon # (Auto) 0.60 (0.00-0.90) K/UL Eos # (Auto) 0.20 (0.00-0.50) K/uL Baso # (Auto) 0.05 (0.00-0.30) K/uL Abs Immat Gran (auto) 0.01 (0.00-0.30) K/uL Imm/Tot Granulo (auto) 0.2 % INR 1.71 H (0.91-1.10) Sodium 136 (135-149) mmol/L Potassium 4.0 (3.6-5.1) mmol/L Chloride 100 (96-114) mmol/L Carbon Dioxide 31 (20-32) mmol/L Anion Gap 5 L (7-15) mEq/L BUN 18 (7-30) mg/dL Creatinine 0.8 (0.5-1.5) mg/dL Estimated GFR 75 ml/min Glucose 84 (60-115) mg/dL Calcium 9.2 (8.4-10.6) mg/dL Magnesium 1.9 (1.5-2.6) mg/dL Total Bilirubin 0.8 (0.1-1.5) mg/dL Direct Bilirubin 0.4 (0.0-0.5) mg/dL AST 29 (12-35) U/L ALT 15 (4-35) U/L Alkaline Phosphatase 116 (40-150) U/L C-Reactive Protein < 0.5 L (0.5-1.0) mg/dL NT-Pro-B Natriuret Pep 5060 H (See Note) pg/mL Total Protein 7.2 (6.0-8.3) g/dL Albumin 3.8 (3.3-5.0) g/dL Lipase 146 (23-300) U/L TSH 1.670 (0.270-4.200) uIU/mL Urine Color Dark yellow (Yellow) Urine Appearance Clear (Clear) Urine pH 6.0 (5.0-8.5) Ur Specific [place] 1.025 (1.000-1.030) Urine Protein Trace A (Negative) Urine Glucose (UA) Negative (Negative) Urine Ketones Trace A (Negative) Urine Blood Negative (Negative) Urine Nitrite Negative (Negative) Urine Bilirubin 1+ A (Negative) Urine Urobilinogen 2.0 A (0.2-1.0) Ur Leukocyte Esterase Negative (Negative) Urine RBC 0-2 (0-2) Urine WBC 0-2 (0-5) Ur Squamous Epith Cells Few (None-Few) Urine Bacteria Few A (None) POC Troponin I 0.01 (0.01-0.04) ng/ml Discharge Plan Discharge Clinical Impression: Low back pain, Constipation Patient Disposition: Home, Self-Care Condition: Stable Instructions: Constipation (ED), High Fiber Diet (ED) Additional Instructions: Your tests today are a largely reassuring. Your CT scan does not show any traumatic injuries from your fall, your blood work shows normal kidney and liver function, and there is no evidence of fluid buildup in your abdomen. You can use Tylenol as needed for pain. I would recommend a recheck with your primary doctor in the next week or so. Return to the ER at any time if you develop new symptoms such as fevers, severe uncontrolled pain, difficulty breathing, etcetera. For constipation, can simply try things like out male, more fiber in your diet. Prunes or prune juice sometimes is enough for some patients. If you are not finding dietary management adequate, can consider use of MiraLax, follow bottle directions. Please recheck with your primary care provider in clinic within the next week for recheck. Prescriptions: New cephalexin 500 mg capsule 500 mg PO BID Qty: 10 0RF No Action carboxymethylcellulose sodium 1 % drops, liquid gel 1 drp ophthalmic (eye) DAILY sodium chloride 5 % drops 5 drp ophthalmic (eye) DAILY cholecalciferol (vitamin D3) 25 mcg (1,000 unit) tablet 25 mcg PO BID famotidine 20 mg tablet 20 mg PO BID furosemide 20 mg tablet 20 mg PO DAILY escitalopram oxalate 10 mg tablet 10 mg PO DAILY Xarelto 20 mg tablet 20 mg PO QPM metoprolol succinate 100 mg tablet extended release 24 hr 100 mg PO BID simvastatin 20 mg tablet 20 mg PO QPM Gemtesa 75 mg tablet 75 mg PO DAILY spironolactone 25 mg tablet 25 mg PO QAM acetaminophen 500 mg tablet 1,000 mg PO Q6H PRN Patient Comments: Take 1,000 mg by mouth every 6 hours if needed. Max acetaminophen dose: 4000mg in 24 hrs. polyethylene glycol 3350 17 gram/dose powder 17 g PO BID Patient Comments: Take 17 g by mouth 2 times daily. Follow Up/Referrals: Eloise Malave MD [Primary Care Provider, Family Practice] Stand Alone Forms: [employer] Info Instructions
== END 2025-01-11 19:35 | disposition home or self-care (01) ==
PROVIDERS: Emergency Provider Emergency Medicine; PCP Family Medicine
DX: M54.50 Low back pain, unspecified (principal); K59.00 Constipation, unspecified
CPT/HCPCS: 36415; 72131; 74177; 80048; 80076; 81001; 83690; 83735; 83880; 84443; 84484; 85025; 85610; 86140; 87086; 93005; 99281; 99284; Q9967